=== PATIENT | female | born 1960 | race Caucasian/White ===

== ENCOUNTER → 2017-09-01 10:46 | Outpatient (CLI) | payer OTHER, SELFPAY ==
[2017-08-17 14:00] VITALS: BP 124/71; BMI 46.5
[2017-09-01 10:55] VITALS: PULSE 104; PULSE 113; PULSE 119; PULSE 127; PULSE 129; PULSE 139; PULSE 80; PULSE 83; O2SAT 95; O2SAT 96; O2SAT 97; O2SAT 98
--- NOTE | 2017-09-02 15:05 | PCM.PSN.6M ---
PSN 6 Minute Walk Test - 6 Minute Walk Test 6 Minute Walk Test: 6 Minute Walk Test PSN:6-Minute Walk Test Start: 09/01/17 11:17 Freq: Status: Active Protocol: RESP.6MINW Document 09/01/17 10:55 [facility] (Rec: 09/01/17 11:21 [facility] [id number]) 6 Minute Walk Test Date Performed 09/01/17 Time Performed 10:55 Height 5 ft 6 in Weight: 131.15 kg Weight in Pounds 289.[address]: Macario Gerardo FIO2 (% Oxygen) 21 Assistive device used: None Pre-test Oxygen Delivery Method Room Air Pulse Ox (%) 97 Pulse Rate (60-100 beats/min) 80 Dyspnea Latasha Scale (0-10) 0 Exertion Latasha Scale (6-20) 6 1st minute Oxygen Delivery Method Room Air Pulse Ox (%) 96 Pulse Rate (60-100 beats/min) 104 H Number of Rests Taken 0 2nd minute Oxygen Delivery Method Room Air Pulse Ox (%) 97 Pulse Rate (60-100 beats/min) 113 H Number of Rests Taken 0 3rd minute Oxygen Delivery Method Room Air Pulse Ox (%) 98 Pulse Rate (60-100 beats/min) 127 H Number of Rests Taken 1 Reported Symptoms Increased Work of Breathing 4th minute Oxygen Delivery Method Room Air Pulse Ox (%) 95 Pulse Rate (60-100 beats/min) 139 H Number of Rests Taken 1 Reported Symptoms Increased Work of Breathing 5th minute Oxygen Delivery Method Room Air Pulse Ox (%) 98 Pulse Rate (60-100 beats/min) 129 H Reported Symptoms Increased Work of Breathing 6th minute Oxygen Delivery Method Room Air Pulse Ox (%) 98 Pulse Rate (60-100 beats/min) 119 H Number of Rests Taken 0 Reported Symptoms Increased Work of Breathing Post-test Oxygen Delivery Method Room Air Pulse Ox (%) 98 Pulse Rate (60-100 beats/min) 83 Dyspnea Latasha Scale (0-10) 5 Exertion Latasha Scale (6-20) 16 Number of Rests Taken 0 Full Laps Walked 13 Partial Lap, Number of Tiles Walked 39 Total Distance Walked (ft) 806 - Interpretation Interpretation: The patient ambulated only 806 feet over the course of 6 minutes on room air with no assistive devices. The patient did take 2 breaks over the course of 6 minutes. Saturations were maintained, but patient did have significant tachycardia with a peak heart rate of 139 bpm. These findings are consistent with a cardiovascular limitation exercise tolerance. - Recommendations Recommendations: No supplemental oxygen is indicated at this time. However, cardiology evaluation may be warranted.
== END ==
PROVIDERS: Family Provider Physician Assistant; PCP Physician Assistant; Visit Provider Internal Medicine Critical Care Medicine
DX: R06.09 Other forms of dyspnea (principal)
CPT/HCPCS: 94618

== ENCOUNTER → 2017-09-22 11:18 | Outpatient (CLI) | payer OTHER, SELFPAY ==
[2017-09-22 13:14] LABS: Rheumatoid Factor < 10.0 IU/mL (<15)
[2017-09-24 09:34] LABS: ANTINUCLEAR ANTIBODIES DIRECT Negative (Negative)
[2017-09-24 16:10] LABS: Cytoplasmic Ab (C-ANCA) <1:20 titer (Neg:<1:20)
[2017-09-25 08:56] LABS: CCP IgG Antibodies 36 units (0-19); Perinuclear Ab (P-ANCA) <1:20 titer (Neg:<1:20)
== END ==
PROVIDERS: Family Provider Physician Assistant; PCP Physician Assistant; Visit Provider Nurse Practitioner Acute Care
DX: R06.09 Other forms of dyspnea (principal)
CPT/HCPCS: 36415; 86038; 86200; 86256; 86431

== ENCOUNTER → 2017-11-25 09:42 | Outpatient (CLI) | payer OTHER, SELFPAY ==
--- NOTE | 2017-11-25 09:47 | RAD_ITS ---
XR Pelvis 1 or 2 Views INDICATION: inflammatory polyarthropathy COMPARISON: None TECHNIQUE: Frontal view of the pelvis FINDINGS: The pelvis is intact and there is normal alignment at the SI joints and symphysis pubis. There is normal alignment at the hips and the joint spaces at the hips are preserved. RAD/Pelvis 1 or 2 Views IMPRESSION: Negative plain film examination of the pelvis. at 1807 Reported and signed by: Ethel Arias MD Electronically Signed: Ethel Arias MD at 18:06 EDT Tel , Service support ,
[2017-11-25 12:25] LABS: Absolute Lymphocyte Count 1.75 X10^3/ul (0.83-4.51); Absolute Neutrophil Count 3.7 X10^3/uL (2.0-7.7); Basophil# 0.06 X10^3/uL; Eosinophil# 0.17 X10^3/uL; Eosinophils% 2.8 % (0-5); Erythrocyte Sedimentation Rate 21 mm/hr (0-30); Hematocrit 35.2 % (37-47); Hemoglobin 11.1 g/dl (12.0-15.0); Lymphocyte # 1.75 X10^3/ul (4.0); Lymphocyte % 28.9 % (19-41); Mean Corp Hgb Conc 31.5 g/gl (32-36); Mean Corpuscular Hgb 29.9 pg (27.0-32.0); Mean Corpuscular Volume 94.9 fL (81-99); Mean Platelet Vol. 9.6 fl (6.2-12.0); Monocyte# 0.31 X10^3/uL; Monocyte% 5.1 % (0-10); Neutrophil # 3.74 X10^3/uL (2.7-7.7); Neutrophil % 61.9 % (47-70); Platelet Count 193 K/mm3 (150-450); RBC Distribution Width SD 55.3 fl (35.1-43.9); Red Blood Count 3.71 M/mm3 (4.2-5.4); White Blood Count 6.1 K/mm3 (4.4-11.0)
[2017-11-25 12:32] LABS: POSITIVE COUNT NO; POSITIVE DIFFERENTIAL NO; POSITIVE MORPHOLOGY NO
[2017-11-25 12:45] LABS: ALB/GLOB Ratio 1.1 RATIO (0.9-2.4); AST(SGOT) 40 U/L (15-37); Alanine Aminotransfer ALT/SGPT 44 U/L (13-56); Albumin, Serum 3.8 g/dL (3.2-5.0); Alkaline Phosphatase 96 U/L (45-117); Anion Gap 11 (5-15); BUN 13 mg/dL (7-18); BUN/Creat Ratio 13.9 RATIO (10-20); Chloride 103 mmol/L (98-107); Creatinine, Serum 0.94 mg/dL (0.55-1.02); EST Glomerular Filtration Rate 66 mL/min (>60); Est Glom Filt Rate - Afr Amer 80 mL/min (>60); Globulin 3.4 g/dL (2.2-4.2); Glucose 224 mg/dL (74-106); Potassium 3.7 mmol/L (3.5-5.1); Protein, Total 7.2 g/dL (6.4-8.2); Rheumatoid Factor < 10.0 IU/mL (<15); Sodium Level 139 mmol/L (136-145)
[2017-12-01 11:14] LABS: CCP IgG Antibodies 31 units (0-19); HEPATITIS B SURFACE AG Negative (Negative); HLA B27 Negative (.); Hep B Surface Antibodies Non Reactive (.); Hep C Antibodies <0.1 s/co ratio (0.0-0.9)
== END ==
PROVIDERS: Family Provider Physician Assistant; PCP Physician Assistant; Visit Provider Internal Medicine Rheumatology
DX: M06.4 Inflammatory polyarthropathy (principal); K21.9 Gastro-esophageal reflux disease without esophagitis; M21.40 Flat foot [pes planus] (acquired), unspecified foot; K76.0 Fatty (change of) liver, not elsewhere classified; E11.40 Type 2 diabetes mellitus with diabetic neuropathy, unspecified; E05.90 Thyrotoxicosis, unspecified without thyrotoxic crisis or storm; N18.9 Chronic kidney disease, unspecified; I12.9 Hypertensive chronic kidney disease with stage 1 through stage 4 chronic kidney disease, or unspecified chronic kidney disease
CPT/HCPCS: 36415; 72170; 80053; 81374; 85025; 85652; 86140; 86200; 86431; 86706; 86803; 87340

== ENCOUNTER → 2018-03-16 15:58 | Outpatient (CLI) | payer OTHER, SELFPAY ==
--- NOTE | 2018-03-16 16:02 | RAD_ITS ---
STUDY: X-RAY CHEST REASON FOR EXAM: Female, 57 years old. Rheumatoid arthritis. Long-term drug therapy TECHNIQUE: PA and lateral views of the chest. COMPARISON: None. FINDINGS: The lungs are clear and expanded. There is no demonstrated pleural abnormality. Normal size heart. Normal mediastinum and augusto. Normal visualized pulmonary arteries. Normal visualized aortic arch and descending thoracic aorta. Normal visualized thoracic spine. Normal visualized ribs, clavicles, and shoulders. There is no demonstrated abnormality of the visualized soft tissue structures of the upper abdomen. RAD/Chest PA and Lateral IMPRESSION: Normal x-ray examination of the chest. Electronically Signed: Az Harrell DO at 12:11 EDT Tel , Service support ,
[2018-03-26 03:07] LABS: QNTFERON TB Ag Minus Nil Value < 0 IU/mL (.); QNTFERON TB Ag Value 0.07 IU/mL (.); QNTFERON TB Mitogen Value > 10.00 IU/mL (.); QNTFERON TB Nil Value 0.12 IU/mL (.)
[2018-03-26 11:35] LABS: QNTIFERON TB Gold Negative (Negative)
== END ==
PROVIDERS: Family Provider Physician Assistant; PCP Physician Assistant; Visit Provider Internal Medicine Rheumatology
DX: M06.09 Rheumatoid arthritis without rheumatoid factor, multiple sites (principal); Z79.899 Other long term (current) drug therapy; K21.9 Gastro-esophageal reflux disease without esophagitis; M21.40 Flat foot [pes planus] (acquired), unspecified foot; K76.0 Fatty (change of) liver, not elsewhere classified; I10 Essential (primary) hypertension; E11.40 Type 2 diabetes mellitus with diabetic neuropathy, unspecified; E05.20 Thyrotoxicosis with toxic multinodular goiter without thyrotoxic crisis or storm; E11.21 Type 2 diabetes mellitus with diabetic nephropathy; I27.29 Other secondary pulmonary hypertension; E78.5 Hyperlipidemia, unspecified; G47.33 Obstructive sleep apnea (adult) (pediatric); Z85.42 Personal history of malignant neoplasm of other parts of uterus
CPT/HCPCS: 36415; 71046; 86480

== ENCOUNTER → 2018-04-28 10:40 | Outpatient (CLI) | payer OTHER, SELFPAY ==
[2018-04-28 11:28] LABS: Anion Gap 10 (5-15); BUN 15 mg/dL (7-18); BUN/Creat Ratio 15.9 RATIO (10-20); Chloride 102 mmol/L (98-107); Creatinine, Serum 0.94 mg/dL (0.55-1.02); EST Glomerular Filtration Rate 65 mL/min (>60); Est Glom Filt Rate - Afr Amer 79 mL/min (>60); Glucose 171 mg/dL (74-106); Potassium 3.9 mmol/L (3.5-5.1); Sodium Level 140 mmol/L (136-145)
[2018-04-28 11:56] LABS: BNP,B-Type NATRIURETIC PEPTIDE 14.3 pg/mL (0-100)
== END ==
PROVIDERS: Family Provider Physician Assistant; PCP Physician Assistant; Referring Provider Nurse Practitioner Acute Care; Visit Provider Nurse Practitioner Acute Care
DX: R06.09 Other forms of dyspnea (principal)
CPT/HCPCS: 36415; 80048; 83880

== ENCOUNTER → 2018-05-13 12:15 | Outpatient (CLI) | payer OTHER, SELFPAY ==
[2018-05-13 12:50] VITALS: PULSE 110; PULSE 113; PULSE 114; PULSE 117; PULSE 120; PULSE 78; PULSE 79; PULSE 97; O2SAT 92; O2SAT 93; O2SAT 95; O2SAT 97; O2SAT 98
--- NOTE | 2018-05-13 12:54 | CPS ---
PATIENT ARRIVED AT BASELINE BREATHING STATUS. SHE TOOK 4 REST BREAKS TOTAL DURING 6 MINUTE TEST, EACH TAKEN DUE TO INCREASED WORK OF BREATHING WELL LOW BACK/HIP PAIN AND FATIGUE.
--- NOTE | 2018-05-13 16:03 | PCM.PSN.6M ---
PSN 6 Minute Walk Test - 6 Minute Walk Test 6 Minute Walk Test: 6 Minute Walk Test PSN:6-Minute Walk Test Start: 05/13/18 12:50 Freq: Status: Active Protocol: RESP.6MINW Document 05/13/18 12:50 [facility] (Rec: 05/13/18 12:56 [facility] [id number]) 6 Minute Walk Test Date Performed 05/13/18 Time Performed 12:30 Height 5 ft 6 in Weight: 138.346 kg Weight in Pounds 305.[address]: Elsie East FIO2 (% Oxygen) 21 Assistive device used: None Pre-test Oxygen Delivery Method Room Air Pulse Ox (%) 97 Pulse Rate (60-100 beats/min) 78 Dyspnea Latasha Scale (0-10) 1 1st minute Oxygen Delivery Method Room Air Pulse Ox (%) 95 Pulse Rate (60-100 beats/min) 97 Dyspnea Latasha Scale (0-10) 2 Number of Rests Taken 0 Reported Symptoms Increased Work of Breathing 2nd minute Oxygen Delivery Method Room Air Pulse Ox (%) 93 Pulse Rate (60-100 beats/min) 110 H Dyspnea Latasha Scale (0-10) 4 Number of Rests Taken 1 Reported Symptoms Increased Work of Breathing 3rd minute Oxygen Delivery Method Room Air Pulse Ox (%) 93 Pulse Rate (60-100 beats/min) 120 H Dyspnea Latasha Scale (0-10) 5 Number of Rests Taken 2 Reported Symptoms Increased Work of Breathing 4th minute Oxygen Delivery Method Room Air Pulse Ox (%) 93 Pulse Rate (60-100 beats/min) 113 H Dyspnea Latasha Scale (0-10) 4 Number of Rests Taken 0 5th minute Oxygen Delivery Method Room Air Pulse Ox (%) 92 Pulse Rate (60-100 beats/min) 117 H Dyspnea Latasha Scale (0-10) 5 Number of Rests Taken 1 Reported Symptoms Increased Work of Breathing 6th minute Oxygen Delivery Method Room Air Pulse Ox (%) 93 Pulse Rate (60-100 beats/min) 114 H Dyspnea Latasha Scale (0-10) 6 Number of Rests Taken 0 Reported Symptoms Increased Work of Breathing Post-test Oxygen Delivery Method Room Air Pulse Ox (%) 98 Pulse Rate (60-100 beats/min) 79 Dyspnea Latasha Scale (0-10) 2 Full Laps Walked 11 Partial Lap, Number of Tiles Walked 14 Total Distance Walked (ft) 663 05/13/18 12:54 Cardiopulmonary Services by Frannie Pepper PATIENT ARRIVED AT BASELINE BREATHING STATUS. SHE TOOK 4 REST BREAKS TOTAL DURING 6 MINUTE TEST, EACH TAKEN DUE TO INCREASED WORK OF BREATHING WELL LOW BACK/HIP PAIN AND FATIGUE. Initialized on 05/13/18 12:54 - END OF NOTE - Interpretation Interpretation: The patient was able to ambulate only 663 feet over the course of 6 minutes on room air with no assistive devices, but did require for breaks secondary to dyspnea and leg pain. Patient did have significant desaturation from a baseline of 97%, to as low as 92% with ambulation. Patient was also noted to have significant tachycardia at 120 bpm. These findings are consistent with a respiratory limitation exercise tolerance. - Recommendations Recommendations: No supplemental oxygen is indicated at this time, but patient will need to be followed closely given level of desaturation.
== END ==
PROVIDERS: Family Provider Physician Assistant; PCP Physician Assistant; Referring Provider Nurse Practitioner Acute Care; Visit Provider Nurse Practitioner Acute Care
DX: R06.09 Other forms of dyspnea (principal)
CPT/HCPCS: 94618

== ENCOUNTER → 2018-05-25 13:17 | Outpatient (CLI) | payer OTHER, SELFPAY ==
--- NOTE | 2018-05-25 15:04 | PFTCOMP_ITS ---
COMPLETE PULMONARY FUNCTION TEST INTERPRETATION Brief HPI: Patient is a 57 year old female, currently under the care of Elsie East, who presents to [facility] for complete pulmonary function tests secondary to diagnosis of dyspnea on exertion. Respiratory therapist reports good effort and reproducible results. Interpretation: Forced expiration spirometry shows no large airways obstructive ventilatory defect with an FEV1 of 80% predicted. There is no significant bronchodilator response by strict ATS criteria. Spirograms are of good quality and plateau normally. The respiratory flow volume loop shows a normal pattern. Lung volumes by body plethysmography show a normal total lung capacity at 5.38 L, 101% predicted. All other lung volumes are within normal limits. Diffusion capacity by carbon monoxide is decreased at 51% predicted. The airway resistance is normal. Compared to previous pulmonary function tests from May 28, 2017, there has been no significant change. Impression: Isolated reduction in diffusion capacity consistent with a pulmonary vascular disorder. There is been no significant change compared to previous.
== END ==
PROVIDERS: Family Provider Physician Assistant; PCP Physician Assistant; Referring Provider Nurse Practitioner Acute Care; Visit Provider Nurse Practitioner Acute Care
DX: R06.09 Other forms of dyspnea (principal)
CPT/HCPCS: 94060; 94726; 94729

== ENCOUNTER 2023-10-22 17:03 | Inpatient (IN) | payer OTHER, SELFPAY ==
[2023-10-22 17:41] LABS: Bedside Glucose 84 mg/dL (74-106)
[2023-10-22 18:46] VITALS: BP 108/53; PULSE 68; RESP 18; TEMP 36.4; O2SAT 97; BMI 56.6
[2023-10-22 22:00] VITALS: BP 102/58; PULSE 74; RESP 16; TEMP 36.5; O2SAT 95
[2023-10-22 22:09] LABS: Bedside Glucose 101 mg/dL (74-106)
[2023-10-22] MEDS: Atorvastatin Calcium 10 MG Tablet PO (23:22)
[2023-10-22] MEDS: Senna/Docusate Sodium 1 Tablet 2 TABLET PO (23:22)
[2023-10-22] MEDS: DULoxetine Hcl 30 MG Capsule PO (23:22)
[2023-10-22] MEDS: Pregabalin 75 MG Capsule 150 MG PO (23:25)
[2023-10-23 03:39] LABS: Bedside Glucose 92 mg/dL (74-106)
[2023-10-23 05:49] LABS: Hemoglobin 11.5 g/dL (12.0-15.0); Mean Corp Hgb Conc 32.9 g/dL (32-36); Mean Corpuscular Hgb 31.9 pg (27.0-32.0); Mean Corpuscular Volume 97.2 fL (81-99); Mean Platelet Vol. 9.9 fl (6.2-12.0); Platelet Count 155 K/mm3 (150-450); RBC Distribution Width CV 13.6 % (11.6-14.6); RBC Distribution Width SD 48.9 fl (35.1-43.9); White Blood Count 7.9 K/mm3 (4.4-11.0)
[2023-10-23 06:00] VITALS: BMI 56.6
[2023-10-23 06:42] LABS: Bedside Glucose 133 mg/dL (74-106)
[2023-10-23 07:05] LABS: AST(SGOT) 51 U/L (15-37); Alanine Aminotransfer ALT/SGPT 37 U/L (13-56); Albumin, Serum 3.2 g/dL (3.2-5.0); Alkaline Phosphatase 85 U/L (45-117); Anion Gap 5 (5-15); BUN 21 mg/dL (7-18); BUN/Creat Ratio 16.8 RATIO (10-20); Calcium,Total 8.7 mg/dL (8.5-10.1); Chloride 103 mmol/L (98-107); Creatinine, Serum 1.25 mg/dL (0.55-1.02); EST Glomerular Filtration Rate 46 mL/min (>60); Est Glom Filt Rate - Afr Amer 56 mL/min (>60); Estimated Creatinine Clearance 73.28 ml/min; Globulin 3.3 g/dL (2.2-4.2); Glucose 153 mg/dL (74-106); Magnesium 1.7 mg/dL (1.6-2.6); Phosphorus 4.8 mg/dL (2.5-4.9); Protein, Total 6.5 g/dL (6.4-8.2); Sodium Level 139 mmol/L (136-145)
[2023-10-23 07:58] VITALS: PULSE 72
[2023-10-23] MEDS: Metoprolol(XL)Succ 100 MG Tablet PO (07:58)
[2023-10-23] MEDS: Loratadine 10 MG Tablet PO (07:58)
[2023-10-23] MEDS: Senna/Docusate Sodium 1 Tablet 2 TABLET PO ×2 (07:58→21:47)
[2023-10-23] MEDS: hydroCHLOROthiazide 25 MG Tablet PO (07:59)
[2023-10-23] MEDS: Losartan Potassium 100 MG Tablet PO (07:59)
[2023-10-23] MEDS: Calcium (Elemental) 500 MG Tablet PO (07:59)
[2023-10-23] MEDS: Ferrous Sulfate 325 MG Tablet PO (07:59)
[2023-10-23] MEDS: Pantoprazole Sodium 40 MG Tablet PO (07:59)
[2023-10-23] MEDS: Cyanocobalamin 500 MCG Tablet 1000 MCG PO (08:00)
[2023-10-23] MEDS: Aspirin E.C. 81 MG Tablet PO (08:00)
[2023-10-23] MEDS: Multivitamins,Therapeutic Tablet 1 TABLET PO (08:00)
[2023-10-23] MEDS: Ascorbic Acid 500 MG Tablet 1000 MG PO (08:00)
[2023-10-23] MEDS: Levothyroxine 137 MCG Tablet PO (08:00)
[2023-10-23] MEDS: Insulin U-500 UNITS/ML PEN 150 UNITS SC (08:03)
[2023-10-23] MEDS: oxyCODONE 5 MG Tablet PO ×2 (08:07→21:48)
[2023-10-23 08:20] VITALS: BP 134/59; PULSE 72; RESP 16; TEMP 37.1; O2SAT 93
[2023-10-23 08:29] VITALS: BP 134/59; PULSE 72; RESP 16; TEMP 37.1; O2SAT 93
[2023-10-23 11:15] LABS: Bedside Glucose 236 mg/dL (74-106)
[2023-10-23] MEDS: Insulin Lispro 100 UNIT/ML INSULN.PEN SC ×2 (11:55→21:54)
[2023-10-23] MEDS: Insulin U-500 UNITS/ML PEN 45 UNITS SC (11:56)
--- NOTE | 2023-10-23 12:49 | HP.PCM_ITS ---
[facility] - General General Date of Admission: 10/22/23 Date of Service: 10/23/23 Chief Complaint: Debility due to R BKA HPI Narrative KACY KEEN, is a 63 YO F with a PMH of poorly controlled DM II on U-500 insulin, HTN, diabetic peripheral polyneuropathy in her hands and feet, obstructive sleep apnea, Charcot ankle on the right, history of endometrial cancer (status post MACO/BSO), rheumatoid arthritis, carpal tunnel syndrome, morbid obesity, dyslipidemia, obstructive sleep apnea (last sleep study was 10- 15 years ago and she has gained about 100 lbs in that period) and chronic pain syndrome who had an elective BKA of the RLE on 10/19/2023 at [facility] by . Surgery went well and she had no unex pected complications. she was transferred to the acute inpt rehab unit at [facility] on 10/22/23 for 3 hours of therapy daily to restore function/independence at or near her level prior to the BKA. She is NWB on the RLE. Had been getting around with a knee walker for the past year. The R Charcot ankle occurred following a R ankle fracture....no fall, was just walking She was seen by Elsie Sellers NP from the pulmonary department at [facility] on 06/03/2018. She was instructed to follow-up with Dr. Gerardo in 3 months but this never happened. She had complete pulmonary function tests on 05/25/2018 and the FVC was 76% of predicted, the FEV1 was 80% of predicted and the FEV1/F VC ratio was 82%. Total lung capacity was 101% of predicted and DLCO was 51% of predicted. The test was considered to be consistent with isolated reduction in diffusing capacity. She underwent a pulmonary stress test on 05/13/2018 and it did not show a drop in saturation below 89%. She was 100% compliant with AutoPap 5-20 cm of water. Her weight at that visit was 302 pounds and since that time she has gained 50 pounds. The current weight is 352 pounds and 3 ounces. BMI is now 56.6, up from 48.7 in 2018. She has inquired about bariatric surgery but, her insurance will not cover. She is on Ozempic which helps to control the BS but, she continues to gain weight. Admits to be non-complaint with diet. Takes 90 mg of duloxetine for depression and chronic back pain. she is on Lyrica 150 mg TID for pain due to peripheral neuropathy. she does not want to take Ozempic because of severe constipation, dry mouth and reflux. She has been taking this medication for about 1 year and her ring facer wants her to continue it. She has not tried any other weight loss medications. Denies ever using Buproprion/naltrexone or phentermine/topiramate. She admits to feeling depressed but, has never had any psychotherapy. All lab drawn this AM was personally reviewed. The white blood cell count is 7.9. Hemoglobin is mildly decreased at 11.5 with a normal MCV and MCH but with a mildly increased RDW. Platelets are within normal limits. Sodium is 139 and the potassium is 4.0. The BUN is 21 with a creatinine of 1.25. Creatinine in April 2018 was 0.94. GFR is 46 which is consistent with stage III chronic renal failure. Magnesium is borderline low at 1.7. LFTs are unremarkable. Phosphorus and calcium are normal. [facility] Medical History (Updated 10/23/23 @ 18:[address] Cristina Simon, ) Adenocarcinoma of endometrium Anemia Benign essential HTN Bilateral carpal tunnel syndrome Charcot ankle Chronic pain Chronic renal failure (CRF), stage 3a CPAP (continuous positive airway pressure) dependence Diabetes mellitus, type 2 Diverticulosis External hemorrhoid Fatty liver GERD without esophagitis Hx of supraventricular tachycardia Hyperlipidemia Low vitamin B12 level Morbid obesity with BMI of 50.0-59.9, adult Multinodular goiter Nephrolithiasis BRITT (obstructive sleep apnea) Pulmonary hypertension Rheumatoid arthritis Rosacea Thyromegaly Tubular adenoma Home Medications aspirin 81 mg tablet,delayed release 81 mg PO DAILY Heart health 01/11/16 [H istory Last Taken 07/03/17] cetirizine 10 mg capsule 10 mg PO DAILY Allergies 01/11/16 [History Last Taken Unknown] losartan 100 mg-hydrochlorothiazide 25 mg tablet 1 tab PO DAILY BP 01/11/16 [History Last Taken 07/03/17] metoprolol succinate 100 mg tablet,extended release 24 hr 100 mg PO DAILY BP 0 01/11/16 [History Last Taken 07/03/17] multivitamin 1 ea PO DAILY Supplement 01/11/16 [History Last Taken Unknown] omeprazole 40 mg capsule,delayed release 40 mg PO DAILY GERD 01/11/16 [History Last Taken 07/03/17] simvastatin 20 mg tablet 20 mg PO QHS Cholestrol 01/11/16 [History Last Taken Unknown] cyanocobalamin (vitamin B-12) 1,000 mcg sublingual tablet 1,000 mcg PO DAILY Supplement 07/02/17 [History Last Taken Unknown] etanercept 50 mg/mL (1 mL) subcutaneous syringe (Enbrel) 50 mg subcut QWEEK Ask dr 04/28/18 [History Last Taken Unknown] hydroxychloroquine 200 mg tablet (Plaquenil) 200 mg PO BID Platelets 04/28/18 [History Last Taken Unknown] duloxetine 60 mg capsule,delayed release 30 mg PO QHS Nerve pain 06/14/18 [History Last Taken Unknown] pregabalin 150 mg capsule (Lyrica) 150 mg PO QHS Nerve pain 06/14/18 [History Last Taken Unknown] insulin regular hum U-500 conc 500 unit/mL(3 mL) subcut pen 150 unit subcut DAILY Blood sugar 30 days #30 mL 06/28/18 [History Last Taken Unknown] ferrous sulfate 325 mg (65 mg iron) tablet (Feosol) 325 mg PO DAILY supplement 04/25/20 [History Last Taken Unknown] levothyroxine 175 mcg capsule 137 mcg PO DAILY Thyroid 04/25/20 [History Last Ta kassandra Unknown] Allergy/AdvReac Type Severity Reaction Status Date / Time No Known Allergies Allergy Verified 04/25/20 13:35 Family History Mother Ovarian cancer Hypertension Arthritis Uterine cancer Fibrocystic disease of breast Hypothyroid Father , Age 86-CHF Hypertension Arthritis Diverticulitis of colon Depression CAD (coronary artery disease) Sister Hypertension Depression CVA (cerebral vascular accident) Fibrocystic disease of breast Diabetes Bleeding disorder Portal hypertension Surgical History (Updated 10/23/23 @ 18:[address] Cristina Simon DO) H/O abdominal hysterectomy H/O cardiac radiofrequency ablation (02/15/13) H/O carpal tunnel repair H/O colonoscopy History of hand surgery History of right and left heart catheterization (07/03/17) History of right below knee amputation History of tonsillectomy Hx of cholecystectomy Previous section Surgical menopause Social History Smoking Status: Never smoker second hand exposure: No alcohol intake: never substance use type: does not use caffeine: No ROS Review of Systems ROS Unobtainable: Denies due to encephalopathy, due to endotracheal tube, due to mental condition or due to mental status Constitutional Constitutional: Reports change in weight and weight gain; Denies anorexia, chills, fatigue, fever(s), night sweats, weakness or weight loss Eyes Eyes: Denies blurry vision, change in vision, eye pain or loss of vision ENT HEENT: Denies abnormal hearing, dysphagia, headache(s), hearing loss, nasal congestion or sore throat Cardiovascular Cardiovascular: Reports dyspnea on exertion and edema; Denies chest pain, lightheadedness, orthopnea, palpitations, paroxysmal nocturnal dyspnea or syncope Respiratory/Chest Respiratory/Chest: Reports dyspnea on exertion and shortness of breath with exertion; Denies cough, dyspnea, shortness of breath at rest or wheezing Gastrointestinal Gastrointestinal: Reports bloating, constipation, dyspepsia and heartburn; Denies abdominal pain, diarrhea, hematemesis, hematochezia, nausea or vomiting Genitourinary Genitourinary: Denies dysuria, hematuria, nocturia, urinary frequency, urinary hesitancy, urinary incontinence or urinary urgency Musculoskeletal Musculoskeletal: Reports back pain, joint pain and joint stiffness; Denies neck pain Integumentary Integumentary: Reports other Details: wound due to R BKA ; Denies jaundice or rash Neurologic Neurologic: Reports paresthesias, sensory deficit and other Details: severe painful neuropathy in the hands and feet. ; Denies confusion, disequilibrium, dizziness, focal weakness, headache(s), seiz ures or tremor(s) Psychiatric Psychiatric: Reports depression; Denies anxiety, behavioral changes, hallucinations, homicidal ideation, panic attacks or suicidal ideation Endocrine Endocrinology: Denies change in body appearance, polydipsia or polyuria Hematologic/Lymphatic Hematologic/Lymphatic: Denies easy bleeding, easy bruising or lymphadenopathy Allergic/Immunologic Allergic/Immunologic: Denies rhinitis, eczemia or asthma Vital Signs Vital Signs Vital Signs: 10/22/23 18:46 10/22/23 22:00 10/22/23 22:00 Temperature 97.6 F L 97.7 F L Temperature Source Temporal Oral Pulse Rate 68 74 Respiratory Rate 18 16 Respiratory Effort Normal Non-Labored Respiratory Depth Normal Respiratory Pattern Normal Blood Pressure 108/53 L 102/58 L Blood Pressure Mean 71 72 Blood Pressure Source Monitor Monitor Blood Pressure Position Semi-Fowlers Semi-Fowlers Blood Pressure Location Left Arm Left Arm Pulse Ox 97 95 Oxygen Delivery Method Room Air Room Air CPAP 10/23/23 07:58 10/23/23 08:20 10/23/23 08:29 Temperature 98.8 F 98.8 F Temperature Source Temporal Temporal Pulse Rate 72 72 72 Respiratory Rate 16 16 Respiratory Effort Respiratory Depth Respiratory Pattern Blood Pressure 134/59 H 134/59 H Blood Pressure Mean 84 84 Blood Pressure Source Monitor Blood Pressure Position Semi-Fowlers Blood Pressure Location Left Arm Pulse Ox 93 93 Oxygen Delivery Method Room Air Room Air Weight Weight: 352 lb 3 oz Body Mass Index (BMI) 56.6 Physical Exam Const alert, oriented x3 and no apparent distress Constitutional Narrative: Making good eye contact, appropriate General Appearance: cooperative, comfortable and well kempt Nutritional Appearance: morbidly obese HEENT moist oral mucous membranes Eyes PERRL, EOMs intact bilaterally, conjunctivae normal and no scleral icterus Neck no lymphadenopathy, supple, no JVD and no carotid bruits Neck Narrative: short thick neck Chest Chest: symmetrical chest wall rise Resp normal respiratory effort, no use of accessory muscles and clear to auscultation bilaterally Resp Narrative: Not tachypneic and no conversational dyspnea. Dimished BS throughout......november b e related to body habitus Cardio regular rate, regular rhythm, S1 normal heart sound, S2 normal heart sound, no murmurs, no rub and no gallops GI normal to inspection, nondistended, normoactive bowel sounds, soft to palpation and non-tender GI Narrative: No guarding with palpation. Morbidly obese, Extremity Extremity Narrative: ankle edema, SAMANTHA hose in place. S/P R BKA. The incision is intact with no dehiscence, no sherif-incisional erythema, no DC and no pain with palpation in the area around the incision. States pain is well controlled. Skin no jaundice Skin Narrative: No rashes, no skin breakdown. See extremity exam fo description of the R BKA incision. Neuro oriented x3, CN's II-XII intact bilaterally and no focal motor deficits Neuro Narrative: Decreased sensation in the hands and distal LLE. Psych affect normal Psych Narrative: Appropriate, making good eye contact. Able to stay on topic and focus. No flight of ideas. Does not appear anxious or depressed. Conversant and relating well to staff. Appearance: grossly normal Attitude: calm and engaged Thought Content: normal thought content Attention / Concentration: attention grossly intact Memory / Cognition: memory grossly intact Results Lab / Micro Data 10/23/23 05:38 10/23/23 05:38 Labs: Laboratory Results - last 24 hr 10/22/23 17:21: POC Glucose 84 10/22/23 21:27: POC Glucose 101 10/23/23 03:21: POC Glucose 92 10/23/23 05:38: WBC 7.9, RBC 3.60 L, Hgb 11.5 L, Hct 35.0 L, MCV 97.2, MCH 31.9, MCHC 32.9, RDW Std Deviation 48.9 H, RDW Coeff of Roland 13.6, Plt Count 155, MPV 9.9, Sodium 139, Potassium 4.0, Chloride 103, Carbon Dioxide 31.0, Anion Gap 5, BUN 21 H, Creatinine 1.25 H, Estim Creat Clear Calc 73.28, Est GFR (MDRD) Af Amer 56 L, Est GFR (MDRD) Non-Af 46 L, BUN/Creatinine Ratio 16.8, Glucose 153 H, Calcium 8.7, Phosphorus 4.8, Magnesium 1.7, Total Bilirubin 0.70, AST 51 H, ALT 37, Alkaline Phosphatase 85, Total Protein 6.5, Albumin 3.2, Globulin 3.3, Albumin/Globulin Ratio 1.0 10/23/23 06:19: POC Glucose 133 H 10/23/23 10:55: POC Glucose 236 H Assessment & Plan Assessment/Plan (1) Physical debility: (2) History of right below knee amputation: PLAN: Elective BKA for right Charcot ankle. 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 operator use Diabetes mellitus complication status: with kidney complications Chronic kidney disease stage: stage 3 (moderate) Chronic kidney disease stage 3 subtype: stage 3a (GFR 45-59) (8) Morbid obesity with BMI of 50.0-59.9, adult: (9) Chronic renal failure (CRF), stage 3a: (10) Pulmonary hypertension: (11) BRITT (obstructive sleep apnea): (12) GERD without esophagitis: (13) Benign essential HTN: (14) Hyperlipidemia: QUALIFIERS: Hyperlipidemia type: pure hypercholesterolemia Qualified Code(s): E78.00 - Pure hypercholesterolemia, unspecified; E78.0 - Pure hypercholesterolemia (15) Fatty liver: PLAN: Plan PLAN PT for gait stability OT for ADL's ST for evaluation Analgesics as needed Bowel protocol Fall precautions Assess for Anxiety/Depression GI prophylaxis -pantoprazole 40 mg daily DVT prophylaxis with enoxaparin 40 mg subcu daily Follow up with PCP, Dr. Morales, endocrinology following DC from Rehab... Also recommend follow up with pulmonary medicine. she has gained 50 lbs since her last sleep study and may need retitration study........does not feel rested in the morning and can fall asleep if doing something boring during the day. Has seen Elsie Sellers in the past. . AM lab including CMP, CBC, Mag and Phos-personally reviewed Change the diet to 1600-calorie, carb consistent, low-fat, low-salt Change the Lyrica to 100 mg 3 times daily Decrease Cymbalta to 60 mg daily Counselled her on weight loss, weight loss medications and bariatric surgery. This patient is only 63 YO old. Has continued to gain weight despite Ozempic. She has now had a BKA and with hx of severe peripheral neuropathy and a BMI of 57 she is at severe risk for having the other leg amputated within the next 5 years. She is unable to exercise and she is not able to control her diet. Fortunately she has normal coronaries. Recommended to her that she seriously consider bariatric surgery and discuss with her insurance company again. If they continue to deny her then I would be willing to write a letter to her insurance company pleading her case. She was place on Cymbalta for pain in her feet.....long before starting Lyrica. She has not lost weight with Cymbalta. Would consider using bupropion/naltrexone for weight loss. Plan on weaning Cymbalta slowly and starting bupropion/naltrexone. Could also consider phentermine/topiramate as a weight loss aid. I strongly recommend psychotherapy to work on addictive behavior food/sugar. Charges/Coding Visit Charges Inpatient E&M: 65138 Init Hosp L2
--- NOTE | 2023-10-23 15:18 | CASEMGMT ---
Social Work SW met with patient at bedside to complete initial intake assessment. Patient is A&Ox4. Patient complete BIM () and PHQ-9 (05/22). Patient expressed significant loneliness and difficulty managing psychology while dealing with health concerns. Patient denies any diagnosis of depression or anxiety. Patient informed SW that she would like to manage her weight and increase physical ability to care for self, but blames self for decline in health. Patient is diabetic and expressed concerns managing diabetic condition. SW discussed coping skills and social supports. Patient was encouraged to reframe concerns regarding increased care. SW discussed home health care support with patient. Patient has significant social support from her spouse and friends. Patient is concerned with being a burden. SW discussed increased discussion regarding care needs with family/ friends. Patient informed SW that she is agreeable to continue discussions for support. MANJEET Kang
[2023-10-23 17:04] LABS: Bedside Glucose 111 mg/dL (74-106)
--- NOTE | 2023-10-23 17:09 | NURSING ---
Addendum entered by Emily Berrios 10/23/23 17:15: Received call back. They stated they are looking into finding a bed that goes lower to the ground. Original Note: Lee left [facility] requesting the bed be replaced as it is too high for the patient. Waiting for return call.
[2023-10-23] MEDS: Juven (unflavored) Packet 1 PACKET PO (17:31)
[2023-10-23] MEDS: Insulin U-500 UNITS/ML PEN 55 UNITS SC (17:31)
--- NOTE | 2023-10-23 18:40 | PCM.RU.PYE ---
Admission Information Primary Diagnosis:: Physical debility secondary to right BKA. Status Changes from Prescreening?: No changes Identified Actual Problem List:: Pain, ALteration in Cmfrt, Depression, Bowel, Constipation, Mobility Impaired, Self Care Deficit, Diabetes, Hyperglycemia, BP, Hypertension and Alteration-Leisure Activ. Potential Problem List:: DVT, Bleeding, Infection, UTI, Aspiration, Falls, Skin Integrity and Depression Risk of Complications DVT: LMWH and SAMANTHA Hose Bleeding: Monitor Lab Values, Nursing to Teach Precautions for anti-coagulation therapy., Wound, if applicable, to be assessed every shift. and Stroke patients assessed for lethargy or change in status. Infection: Clinical Staff to Monitor for S/S of infection: and S/S of infection include fever, redness, warmth, etc. Urinary Tract Infection: Monitor for frequency, burning, discomfort, or incontinence. and Nursing will obtain urine sample for urinalysis and C&S when ordered. Aspiration: Clinical staff will monitor for coughing, drooling, congestion., Speech will evaluate swallowing and dsyphasia. and Nursing will monitor patient swallowing during meals. Falls: Patient will be evaluated for Fall Precautions and Patient will be placed on Fall Precautions as indicated per protocol. Skin Breakdown: Nursing will assess skin daily using assessment tool. and Nursing will place on Skin Breakdown Precautions as indicated. Pain: Clinical staff will assess patient's pain level per protocol., Medications will be given, if needed, and the pain level reassessed. and Other methods: Massage, distraction, decrease stimulus, etc. used PRN. Plan of Care Patient requires physician specializing in physical medicine and rehab oversight to provide close medical supervision of rehab issues including: Pain Management, Sleep Problems, Bowel and Bladder, Medical and co-morbidity Management, DVT prophylaxis, Rehabilitation Leadership and Coordination of treatment team Patient needs Physical Therapy: For a minimum of 1 hour and At least 5 out of 7 days Patient needs Physical Therapy to improve:: Mobility, Strengthening, Transfers, Stretching, ROM, Endurance, Stairs, Gait and Balance Patient needs Occupational Therapy: For a minimum of 1 hour and At least 5 out of 7 days Patient needs Occupational Therapy to improve ADL's incl.: Eating, Grooming, Bathing, Dressing, Toileting, Toilet transfers, Community Reintegration, Higher functioning activities, Household tasks, Adaptive Equipment, Splinting and Other activities as determined Patient requires 24/ Rehabilitation Nursing for: Pain Issues, Identifying and preventing risk factors, Monitoring and reporting current medical conditions, Assisting with ambulation, transfer, and all ADL's, Teaching patients about disease process and medications, Family teaching, Providing safe environment, Bowel and Bladder Issues, Skin integrity and Medication Management Patient needs Senior Sales Engineer/ Case Management for: Discharge Planning, Arranging Home Equipment or Services and Family Interventions Patient needs Dietary and Nutrition Services for: Adequate Nutrition, Nutritional Supplements and Nutritional Education Goals Goals Patient will remain: free from falls Patient will perform eating at: MOD I level of assist. Patient will perform bed mobility at: MOD I level of assist. Patient will complete transfers from bed to chair at: Standby Assist. Patient will propel wheelchair: - (250 feet on various surfaces including up/down a ramp to allow access to her home and community.) Patient will complete upper body dressing at: MOD I level of assist. Patient will complete lower body dressing at: MOD I level of assist. (With adaptive equipment as needed) Patient will complete toilet transfer at: MOD I level of assist. Patient will complete toileting at: MOD I level of assist. Patient will perform bathing at: MOD I level of assist. (With adaptive equipment as needed for increased independence with self-care) Patient will perform Tub/Shower transfer at: Standby Assist. Patient will complete grooming at: MOD I level of assist. Patient will complete home management skills at: MOD I level of assist. Patient will have pain level of: of 3 or less Patient's skin will: remain intact Patient will receive: adequate nutrition. Discharge Planning Pt Prognosis for Sig. Practical Improv. w/in Reasonable Time: Good Estimated Length of stay (days): 21 Anticipated D/C Destination: Home with Outpt Therapy Was Preadmission Assessment Accurate?: Yes
[2023-10-23 20:20] VITALS: BP 113/54; PULSE 78; RESP 17; TEMP 36.7; O2SAT 95
[2023-10-23] MEDS: Atorvastatin Calcium 10 MG Tablet PO (21:44)
[2023-10-23] MEDS: Pregabalin 50 MG Capsule 100 MG PO (21:48)
[2023-10-23 22:09] LABS: Bedside Glucose 177 mg/dL (74-106)
[2023-10-23] MEDS: Nystatin Powder 15gm Bottle 1 APPLIC TOPICAL (22:12)
[2023-10-24] MEDS: Levothyroxine 137 MCG Tablet PO (06:37)
[2023-10-24] MEDS: Pregabalin 50 MG Capsule 100 MG PO ×3 (06:37→21:18)
[2023-10-24] MEDS: Enoxaparin 40 MG/0.4 ML Syringe SC (06:37)
[2023-10-24 07:19] LABS: Bedside Glucose 198 mg/dL (74-106)
[2023-10-24] MEDS: Insulin U-500 UNITS/ML PEN 150 UNITS SC (07:52)
[2023-10-24] MEDS: Insulin Lispro 100 UNIT/ML INSULN.PEN SC ×3 (07:52→16:57)
[2023-10-24] MEDS: Cyanocobalamin 500 MCG Tablet 1000 MCG PO (07:53)
[2023-10-24] MEDS: Juven (unflavored) Packet 1 PACKET PO ×2 (07:53→16:01)
[2023-10-24] MEDS: Loratadine 10 MG Tablet PO (07:54)
[2023-10-24] MEDS: Multivitamins,Therapeutic Tablet 1 TABLET PO (07:54)
[2023-10-24] MEDS: Aspirin E.C. 81 MG Tablet PO (07:54)
[2023-10-24] MEDS: DULoxetine Hcl 60 MG Capsule PO (07:54)
[2023-10-24] MEDS: Ascorbic Acid 500 MG Tablet 1000 MG PO (07:56)
[2023-10-24 07:57] VITALS: PULSE 77
[2023-10-24] MEDS: Metoprolol(XL)Succ 100 MG Tablet PO (07:57)
[2023-10-24] MEDS: Senna/Docusate Sodium 1 Tablet 2 TABLET PO ×2 (07:57→21:18)
[2023-10-24] MEDS: Losartan Potassium 100 MG Tablet PO (07:58)
[2023-10-24] MEDS: Pantoprazole Sodium 40 MG Tablet PO (07:58)
[2023-10-24] MEDS: hydroCHLOROthiazide 25 MG Tablet PO (07:59)
[2023-10-24] MEDS: Calcium (Elemental) 500 MG Tablet PO (07:59)
[2023-10-24] MEDS: Ferrous Sulfate 325 MG Tablet PO (08:00)
[2023-10-24] MEDS: Nystatin Powder 15gm Bottle 1 APPLIC TOPICAL ×2 (08:24→21:18)
[2023-10-24 08:25] VITALS: BP 138/72; PULSE 70; RESP 17; TEMP 36.6; O2SAT 97
[2023-10-24] MEDS: oxyCODONE 5 MG Tablet PO ×3 (10:04→22:01)
[2023-10-24] MEDS: Insulin U-500 UNITS/ML PEN 45 UNITS SC (11:32)
[2023-10-24 11:41] LABS: Bedside Glucose 290 mg/dL (74-106)
[2023-10-24 16:21] LABS: Bedside Glucose 161 mg/dL (74-106)
[2023-10-24] MEDS: Insulin U-500 UNITS/ML PEN 55 UNITS SC (16:57)
[2023-10-24 19:30] VITALS: BP 145/68; PULSE 69; RESP 17; TEMP 36.6
[2023-10-24] MEDS: Atorvastatin Calcium 10 MG Tablet PO (21:18)
[2023-10-24 21:30] VITALS: PULSE 69; RESP 17; O2SAT 98
[2023-10-24 21:51] LABS: Bedside Glucose 141 mg/dL (74-106)
[2023-10-25 03:23] LABS: Bedside Glucose 136 mg/dL (74-106)
[2023-10-25] MEDS: Enoxaparin 40 MG/0.4 ML Syringe SC (06:05)
[2023-10-25] MEDS: Levothyroxine 137 MCG Tablet PO (06:06)
[2023-10-25] MEDS: Pregabalin 50 MG Capsule 100 MG PO ×3 (06:06→21:25)
[2023-10-25 07:03] LABS: Bedside Glucose 181 mg/dL (74-106)
[2023-10-25 07:29] VITALS: BP 132/64; PULSE 75; RESP 16; TEMP 36.5; O2SAT 94
[2023-10-25] MEDS: Insulin Lispro 100 UNIT/ML INSULN.PEN SC ×3 (07:58→16:40)
[2023-10-25] MEDS: Insulin U-500 UNITS/ML PEN 150 UNITS SC (07:58)
[2023-10-25] MEDS: Aspirin E.C. 81 MG Tablet PO (07:59)
[2023-10-25] MEDS: hydroCHLOROthiazide 25 MG Tablet PO (07:59)
[2023-10-25] MEDS: Ascorbic Acid 500 MG Tablet 1000 MG PO (08:00)
[2023-10-25] MEDS: Losartan Potassium 100 MG Tablet PO (08:00)
[2023-10-25] MEDS: Calcium (Elemental) 500 MG Tablet PO (08:00)
[2023-10-25] MEDS: Multivitamins,Therapeutic Tablet 1 TABLET PO (08:00)
[2023-10-25] MEDS: Loratadine 10 MG Tablet PO (08:00)
[2023-10-25] MEDS: Nystatin Powder 15gm Bottle 1 APPLIC TOPICAL ×2 (08:01→21:26)
[2023-10-25] MEDS: Cyanocobalamin 500 MCG Tablet 1000 MCG PO (08:01)
[2023-10-25 08:02] VITALS: PULSE 75
[2023-10-25] MEDS: Metoprolol(XL)Succ 100 MG Tablet PO (08:02)
[2023-10-25] MEDS: Senna/Docusate Sodium 1 Tablet 2 TABLET PO (08:02)
[2023-10-25] MEDS: Pantoprazole Sodium 40 MG Tablet PO (08:02)
[2023-10-25] MEDS: Ferrous Sulfate 325 MG Tablet PO (08:02)
[2023-10-25] MEDS: Juven (unflavored) Packet 1 PACKET PO ×2 (08:04→16:39)
[2023-10-25] MEDS: DULoxetine Hcl 60 MG Capsule PO (08:06)
[2023-10-25] MEDS: oxyCODONE 5 MG Tablet PO ×2 (09:18→21:26)
[2023-10-25] MEDS: Insulin U-500 UNITS/ML PEN 45 UNITS SC (11:09)
[2023-10-25 11:27] LABS: Bedside Glucose 310 mg/dL (74-106)
--- NOTE | 2023-10-25 12:42 | PN_ITS ---
Subjective Subjective Afebrile VSS-blood pressure over the past 2 days has ranged from 113/54 to 145/68. Heart rate is within normal limits. Maintaining appropriate oxygen saturation on RA-ranges from 94 to 98% on room air. Uses CPAP at night. Oral intake - FOOD good FLUIDS not being recorded Blood sugar record was reviewed. Patient had a snack in the middle of the night last night for blood sugar of 81. Fasting this morning was 181 and the blood sugar at noon is 310. Discussed with nursing - no problems that need addressed. Patient awakened last night to a phone alert that her blood sugar was low at 81. She was provided a snack and a recheck was 136. Reviewed the THERAPY notes Medication list reviewed. Pain in her hands of legs is good and she is tolerating the decrease in the Lyrica to 100 mg TID. She is c/o pain in her back which is chronic. Denies radiation into her legs. Had an MRI of the back 10 years ago and saw a neurosurgeon but, no indication for surgery at that time. She has a bulging disc but, nothing else of concern. No recent imaging of the back. Denies faver, sweat and chills. Pain is adequately controlled. Sleeping well at night. No N/V/abd pain. Denies CP and SOB. Objective Data Objective Data Vital Signs: Vital Signs Temp Pulse Resp BP Pulse Ox O2 Del Method 97.7 F L 75 16 132/64 H 94 Room Air 10/25/23 07:29 10/25/23 08:02 10/25/23 07:29 10/25/23 07:29 10/25/23 07:29 10/25/23 07:29 Oxygen Delivery Method Room Air Weight: 352 lb 3 oz Body Mass Index (BMI) 56.6 Intake & Output: Intake and Output for Last 24 Hours 10/23/23 10/24/23 10/25/23 23:59 23:59 23:59 Output Total 700 / 700 650 / 650 Balance -700 / -700 -650 / -650 Lab / Micro Data 10/23/23 05:38 10/23/23 05:38 Labs: Laboratory Results - last 24 hr 10/24/23 15:56: POC Glucose 161 H 10/24/23 21:16: POC Glucose 141 H 10/25/23 03:05: POC Glucose 136 H 10/25/23 06:12: POC Glucose 181 H 10/25/23 11:04: POC Glucose 310 H Physical Exam Const alert, oriented x3 and no apparent distress General Appearance: cooperative Resp clear to auscultation bilaterally Auscultation: diminished lung sounds Cardio regular rate, regular rhythm and no gallops GI normal to inspection, nondistended, normoactive bowel sounds, soft to palpation and non-tender Extremity no calf tenderness Extremity Narrative: She has some cyanosis of the pads of her fingers. She has never noticed this. She has never been diagnosed with Raynaud's but, she has been diagnosed with RA. the pain in her hands is better with the increase in the Lyrica to 100 mg TID........was on 150 mg once a day at admission to rehab. Skin Rashes: no rashes Wound Narrative: will examine the incision tomorrow. She had already had the bandage changed today when I examined her......nursing and pt tell me that it is good. Psych affect normal Assessment & Plan Assessment/Plan (1) Physical debility: (2) History of right below knee amputation: (3) Charcot ankle: QUALIFIERS: Laterality: right Qualified Code(s): M14.671 - Charcot's joint, right ankle and foot (4) Acute blood loss anemia: (5) Diabetes mellitus, type 2: QUALIFIERS: Diabetes mellitus retirement insulin use: with nuclear operator use Diabetes mellitus complication status: with kidney complications Chronic kidney disease stage: stage 3 (moderate) Chronic kidney disease stage 3 subtype: stage 3a (GFR 45-59) (6) Chronic renal failure (CRF), stage 3a: PLAN: Plan 1. Continue therapy 2. Change the sliding scale insulin to high-dose and do not cover the at bedtime blood sugar. Decrease the U-500 insulin at dinner to 50 units. 3. Give the U-500 insulin in the a.m. at 7 rather than at 730. 4. Continue ascorbic acid and Hal for wound healing and add vitamin D 400 mg daily. 5. Arthritis compounded cream to painful areas of her back 3 times daily 6. K-pad 7. Zanaflex 2 mg p.o. every 8 hours as needed muscle spasm 8. Continue to monitor blood sugars before meals and at bedtime Charges/Coding Visit Charges Inpatient E&M: 67473 Subs Hosp L1
[2023-10-25 16:30] LABS: Bedside Glucose 223 mg/dL (74-106)
[2023-10-25] MEDS: Insulin U-500 UNITS/ML PEN 50 UNITS SC (16:39)
[2023-10-25] MEDS: Arthritis Pain Compound 60 CLICK TUBE TOPICAL ×2 (16:40→21:22)
[2023-10-25 19:25] VITALS: BP 128/60; PULSE 68; RESP 17; TEMP 36.8; O2SAT 96
[2023-10-25] MEDS: Atorvastatin Calcium 10 MG Tablet PO (21:23)
[2023-10-25 22:00] VITALS: PULSE 68; RESP 17; O2SAT 97
[2023-10-25 22:35] LABS: Bedside Glucose 114 mg/dL (74-106)
[2023-10-26 04:19] LABS: Bedside Glucose 99 mg/dL (74-106)
[2023-10-26 04:19] LABS: Bedside Glucose 77 mg/dL (74-106)
[2023-10-26] MEDS: Enoxaparin 40 MG/0.4 ML Syringe SC (06:23)
[2023-10-26] MEDS: Arthritis Pain Compound 60 CLICK TUBE TOPICAL ×3 (06:23→21:49)
[2023-10-26] MEDS: Levothyroxine 137 MCG Tablet PO (06:23)
[2023-10-26] MEDS: Pregabalin 50 MG Capsule 100 MG PO ×3 (06:28→21:50)
[2023-10-26 06:52] LABS: Bedside Glucose 194 mg/dL (74-106)
[2023-10-26 07:07] VITALS: BP 132/68; PULSE 75; RESP 16; TEMP 36.4; O2SAT 95
[2023-10-26] MEDS: Juven (unflavored) Packet 1 PACKET PO ×2 (07:32→17:22)
[2023-10-26] MEDS: Loratadine 10 MG Tablet PO (07:33)
[2023-10-26] MEDS: Ascorbic Acid 500 MG Tablet 1000 MG PO (07:33)
[2023-10-26] MEDS: hydroCHLOROthiazide 25 MG Tablet PO (07:33)
[2023-10-26] MEDS: Aspirin E.C. 81 MG Tablet PO (07:33)
[2023-10-26] MEDS: Calcium (Elemental) 500 MG Tablet PO (07:33)
[2023-10-26 07:34] VITALS: PULSE 75
[2023-10-26] MEDS: DULoxetine Hcl 60 MG Capsule PO (07:34)
[2023-10-26] MEDS: Multivitamins,Therapeutic Tablet 1 TABLET PO (07:34)
[2023-10-26] MEDS: Pantoprazole Sodium 40 MG Tablet PO (07:34)
[2023-10-26] MEDS: Ferrous Sulfate 325 MG Tablet PO (07:34)
[2023-10-26] MEDS: Senna/Docusate Sodium 1 Tablet 2 TABLET PO (07:34)
[2023-10-26] MEDS: Cyanocobalamin 500 MCG Tablet 1000 MCG PO (07:34)
[2023-10-26] MEDS: Metoprolol(XL)Succ 100 MG Tablet PO (07:34)
[2023-10-26] MEDS: Losartan Potassium 100 MG Tablet PO (07:34)
[2023-10-26] MEDS: Vitamin E 400 UNITS Capsule PO (07:34)
[2023-10-26] MEDS: Insulin U-500 UNITS/ML PEN 150 UNITS SC (07:35)
[2023-10-26] MEDS: Insulin Lispro 100 UNIT/ML INSULN.PEN SC ×3 (07:35→17:21)
[2023-10-26] MEDS: Nystatin Powder 15gm Bottle 1 APPLIC TOPICAL ×2 (07:36→21:51)
--- NOTE | 2023-10-26 11:04 | PN_ITS ---
Subjective Subjective Flor was seen on team rounds today. Her Geraldo was present in the room for rounds. All their questions were answered to their satisfaction. Afebrile VSS Maintaining appropriate oxygen saturation on RA Oral intake - FOOD -good FLUIDS not being monitored currently She awoke again early this morning at 3:15 AM with a blood sugar of 77 and after a snack it was 99. She was asymptomatic. The suppertime U-500 was decreased to 50 units yesterday. Fasting blood sugar this morning was 194. She was 114 at at bedtime. Discussed with nursing - no problems that need addressed Reviewed the THERAPY notes Medication list reviewed. She is taking oxycodone 5 mg 2-3 times daily for pain. Elisabet tells me that her back pain feels better with the arthritis pain cream. She is complaining of some back tightness with therapy today. She has not taken any as needed Zanaflex. She feels her pain in the right lower extremity is adequately controlled. She denies radicular pain in both legs. She is sleeping well and has a good appetite. She admits to being depressed for the past year now that we have discussed the sx of depression with her. Obviously the Cymbalta 90 mg was not treating depression adequately. She is worried about being a burden to her family and is worried about her job which she really enjoys. She denies chest pain, shortness of breath, cough, nausea/vomiting/abdominal pain, constipation, calf pain and dysuria. She is having some difficulty with toileting and needs assist. Objective Data Objective Data Vital Signs: Vital Signs Temp Pulse Resp BP Pulse Ox O2 Del Method 97.6 F L 75 16 132/68 H 95 Room Air 10/26/23 07:07 10/26/23 07:34 10/26/23 07:07 10/26/23 07:07 10/26/23 07:07 10/26/23 07:07 Oxygen Delivery Method Room Air Weight: 352 lb 3 oz Body Mass Index (BMI) 56.6 Intake & Output: Intake and Output for Last 24 Hours 10/24/23 10/25/23 10/26/23 23:59 23:59 23:59 Intake Total 240 / 240 Output Total 650 / 650 Balance -650 / -650 240 / 240 Lab / Micro Data 10/23/23 05:38 10/23/23 05:38 Labs: Laboratory Results - last 24 hr 10/25/23 11:04: POC Glucose 310 H 10/25/23 16:08: POC Glucose 223 H 10/25/23 21:15: POC Glucose 114 H 10/26/23 03:17: POC Glucose 77 10/26/23 03:46: POC Glucose 99 10/26/23 06:28: POC Glucose 194 H Physical Exam Const alert, oriented x3 and no apparent distress General Appearance: cooperative Resp clear to auscultation bilaterally Auscultation: diminished lung sounds Cardio regular rate, regular rhythm and no gallops GI normal to inspection, nondistended, normoactive bowel sounds, soft to palpation and non-tender Extremity no calf tenderness Skin Rashes: no rashes Wound Narrative: Psych affect normal Assessment & Plan Assessment/Plan (1) Physical debility: (2) History of right below knee amputation: (3) Charcot ankle: QUALIFIERS: Laterality: right Qualified Code(s): M14.671 - Charcot's joint, right ankle and foot (4) Acute blood loss anemia: (5) Diabetes mellitus, type 2: QUALIFIERS: Diabetes mellitus intermission coordinator insulin use: with fdc use Diabetes mellitus complication status: with kidney complications Chronic kidney disease stage: stage 3 (moderate) Chronic kidney disease stage 3 subtype: stage 3a (GFR 45-59) (6) Chronic renal failure (CRF), stage 3a: (7) Depression: PLAN: Plan 1. Continue therapy 2. Decrease the U-500 at suppertime to 45 units. 3. Increase the a.m. U-500 to 160 units and change the time to 06:30. 4. Add Wellbutrin XL 150 mg QAM 5. I recommended psychotherapy post DC to help her to deal with her chronic illnesses and the new disability due to R BKA. She is agreeable to this. Elisabet now realizes that she has been depressed for the past year, despite taking duloxetine 90 mg daily. Duloxetine was originally started for pain in the feet but, it did not control the pain in her hands and she was started on Lyrica with good control of the neuropathic pain. She c/o brain fog, memory difficulties, lack of motivation. She is agreeable to trying Wellbutrin as an antidepressant. I am hoping this will help control depression and appetite. If she tolerates the Wellbutrin may transition to Wellbutrin/Naltrexone as an OP to promote weight loss. Continue to taper Duloxetine Every 1-2 weeks until off. Charges/Coding Visit Charges Inpatient E&M: 23994 Subs Hosp L2
[2023-10-26 11:41] LABS: Bedside Glucose 246 mg/dL (74-106)
[2023-10-26] MEDS: tiZANidine HCl 2 MG Tablet PO (11:49)
[2023-10-26] MEDS: Insulin U-500 UNITS/ML PEN 45 UNITS SC ×2 (12:10→17:21)
--- NOTE | 2023-10-26 13:53 | CASEMGMT ---
Social Work IDT group met with patient and at bedside. SW notified patient and that the patient [employer] insurance next review date for insurance is 11/02/2023. SW reviewed PHQ-9 evaluation with the patient to discuss results of (05/22). Patient is aware that she will required continued support from family and friends. The patient expressed that she will communicate needs with family. Physician provided in-depth review of depression diagnosis and medication adjustments. Patient will start on Wellbutrin. SW recommend continued counseling support for transition. SW discussed home health care support with patient and . Patient is agreeable to services, if recommended at discharge. SW to follow up with patient and family regarding choice for home health care. MANJEET Kang
[2023-10-26 17:02] LABS: Bedside Glucose 200 mg/dL (74-106)
[2023-10-26 20:00] VITALS: BP 108/50; PULSE 72; RESP 20; TEMP 36.9; O2SAT 94
[2023-10-26 21:35] LABS: Bedside Glucose 153 mg/dL (74-106)
[2023-10-26] MEDS: Atorvastatin Calcium 10 MG Tablet PO (21:49)
[2023-10-27] MEDS: Enoxaparin 40 MG/0.4 ML Syringe SC (06:29)
[2023-10-27] MEDS: Levothyroxine 137 MCG Tablet PO (06:29)
[2023-10-27] MEDS: Pregabalin 50 MG Capsule 100 MG PO ×3 (06:29→21:13)
[2023-10-27] MEDS: Arthritis Pain Compound 60 CLICK TUBE TOPICAL ×3 (06:30→21:14)
[2023-10-27 06:53] LABS: Bedside Glucose 112 mg/dL (74-106)
[2023-10-27 07:28] VITALS: BP 137/69; PULSE 73; RESP 16; TEMP 36.3; O2SAT 95
[2023-10-27] MEDS: Juven (unflavored) Packet 1 PACKET PO ×2 (08:45→17:25)
[2023-10-27] MEDS: Calcium (Elemental) 500 MG Tablet PO (08:46)
[2023-10-27] MEDS: Ascorbic Acid 500 MG Tablet 1000 MG PO (08:46)
[2023-10-27] MEDS: Ferrous Sulfate 325 MG Tablet PO (08:46)
[2023-10-27] MEDS: Loratadine 10 MG Tablet PO (08:46)
[2023-10-27] MEDS: Aspirin E.C. 81 MG Tablet PO (08:46)
[2023-10-27] MEDS: hydroCHLOROthiazide 25 MG Tablet PO (08:46)
[2023-10-27] MEDS: Pantoprazole Sodium 40 MG Tablet PO (08:46)
[2023-10-27] MEDS: Multivitamins,Therapeutic Tablet 1 TABLET PO (08:46)
[2023-10-27] MEDS: Vitamin E 400 UNITS Capsule PO (08:46)
[2023-10-27 08:47] VITALS: BP 137/69; PULSE 73
[2023-10-27] MEDS: DULoxetine Hcl 60 MG Capsule PO (08:47)
[2023-10-27] MEDS: Metoprolol(XL)Succ 100 MG Tablet PO (08:47)
[2023-10-27] MEDS: Losartan Potassium 100 MG Tablet PO (08:47)
[2023-10-27] MEDS: Cyanocobalamin 500 MCG Tablet 1000 MCG PO (08:47)
[2023-10-27] MEDS: Insulin U-500 UNITS/ML PEN 160 UNITS SC (08:48)
[2023-10-27] MEDS: buPROPion (XL) 150 MG TABLET.XL PO (08:49)
[2023-10-27] MEDS: Nystatin Powder 15gm Bottle 1 APPLIC TOPICAL ×2 (08:56→21:13)
[2023-10-27] MEDS: Insulin Lispro 100 UNIT/ML INSULN.PEN SC (12:08)
[2023-10-27] MEDS: Insulin U-500 UNITS/ML PEN 45 UNITS SC ×2 (12:08→17:28)
[2023-10-27 12:34] LABS: Bedside Glucose 240 mg/dL (74-106)
--- NOTE | 2023-10-27 13:26 | PCM.PROGNOTE ---
Subjective Subjective Afebrile VSS Maintaining appropriate oxygen saturation on RA Oral intake - FOOD good FLUIDS fair to good Discussed with nursing - no problems that need addressed Reviewed the THERAPY notes Medication list reviewed. Back pain is doing better. Denies CP, SOB at rest, palpitations, N/V/abd pain, dysuria, calf tenderness and lightheadedness. She states that she is always thirsty. She is having some polyuria from uncontrolled blood sugars and she is also on hydrochlorothiazide for many years for hypertension. She is on HCTZ and a Beta dg for HTN. Had SVT in the past. No hx of AFIB. Has not had any SVT since the ablation. Both HCTZ and beta blockers increase insulin resistance and the beta dg blunts the response to low blood sugars and be associated with fatigue. She is also taking Cozaar. She had her first dose of Wellbutrin today and denies CORNEJO. Tells me that with the stool softeners she is having regular BM's. Objective Data Objective Data Vital Signs: Vital Signs Temp Pulse Resp BP Pulse Ox O2 Del Method 97.3 F L 73 16 137/69 H 95 Room Air 10/27/23 07:28 10/27/23 08:47 10/27/23 07:28 10/27/23 08:47 10/27/23 07:28 10/27/23 07:28 Oxygen Delivery Method Room Air Weight: 352 lb 3 oz Body Mass Index (BMI) 56.6 Intake & Output: Intake and Output for Last 24 Hours 10/25/23 10/26/23 10/27/23 23:59 23:59 23:59 Intake Total 720 / 720 Output Total 850 / 850 Balance 720 / 720 -850 / -850 Lab / Micro Data 10/23/23 05:38 10/23/23 05:38 Labs: Laboratory Results - last 24 hr 10/26/23 16:36: POC Glucose 200 H 10/26/23 21:15: POC Glucose 153 H 10/27/23 06:28: POC Glucose 112 H 10/27/23 12:07: POC Glucose 240 H Physical Exam Const alert and oriented x3 Constitutional Narrative: Very motivated to get better and heal so that she can be fitted with a prosthesis and start walking again. General Appearance: cooperative HEENT Mouth: dry mucous membranes Resp clear to auscultation bilaterally Auscultation: diminished lung sounds Cardio regular rate, regular rhythm and no gallops Cardio Narrative: Distant heart sounds, likely related to body habitus. GI normal to inspection, nondistended, normoactive bowel sounds, soft to palpation and non-tender Extremity no calf tenderness General Extremity: Negative for edema Skin Wound Narrative: There is some resolving bruising around the incision. She has increased sherif-incisional erythema when compared to my first exam. The erythema is blanchable. There is no DC from the incision but there is some dried serosanguineous discharge on the gauze. No odor. Mild pitting edema of the stump. She denies any sweats or chills. Assessment & Plan Assessment/Plan (1) Physical debility: (2) History of right below knee amputation: (3) Charcot ankle: QUALIFIERS: Laterality: right Qualified Code(s): M14.671 - Charcot's joint, right ankle and foot (4) Acute blood loss anemia: (5) Diabetes mellitus, type 2: QUALIFIERS: Diabetes mellitus ferry terminal supervisor insulin use: with chcf use Diabetes mellitus complication status: with kidney complications Chronic kidney disease stage: stage 3 (moderate) Chronic kidney disease stage 3 subtype: stage 3a (GFR 45-59) (6) Chronic renal failure (CRF), stage 3a: (7) Depression: QUALIFIERS: Depression Type: reactive depression Qualified Code(s): F32.9 - Major depressive disorder, single episode, unspecified PLAN: Plan 1. Continue therapy 2. DC Cozaar and start Zestril 20 mg daily in the AM. Would like to be able to at least decrease the beta-dg if possible. Suspect she may need 20 mg BID of Zestril if we are going to be able to decrease the Metoprolol. 3. Discontinue hydrochlorothiazide. Creatinine was mildly elevated on the and she has dry mucous membranes and is complaining of constant thirst. She has been on this for many years for hypertension. 4. Check a CBC with differential, BMP, magnesium, ESR and CRP in the a.m. 5. Reexamine the wound in the AM. 6. Continue to hold Enbrel. 7. Continue vitamin C, vitamin D and Hal for wound healing 8. Consult Dr. Hilliard to manage blood sugars Spent 40 minutes with this patient today, 30 minutes was spent educating and answering her question and the other 10 minutes reviewing lab and completing documentation and orders. Charges/Coding Visit Charges Inpatient E&M: 96035 Subs Hosp L2
[2023-10-27 17:23] LABS: Bedside Glucose 103 mg/dL (74-106)
[2023-10-27 20:34] VITALS: BP 141/69; PULSE 73; RESP 18; TEMP 36.2; O2SAT 95
[2023-10-27] MEDS: Atorvastatin Calcium 10 MG Tablet PO (21:13)
[2023-10-27] MEDS: Senna/Docusate Sodium 1 Tablet 2 TABLET PO (21:13)
[2023-10-27 21:21] LABS: Bedside Glucose 74 mg/dL (74-106)
[2023-10-28 05:53] LABS: Absolute Lymphocyte Count 1.94 X10^3/uL (0.83-4.51); Absolute Neutrophil Count 3.6 X10^3/uL (2.0-7.7); Basophil# 0.06 X10^3/uL; Basophil% 0.9 % (0-1); Eosinophil# 0.41 X10^3/uL; Eosinophils% 5.9 % (0-5); Hematocrit 34.2 % (37-47); Hemoglobin 11.3 g/dL (12.0-15.0); Lymphocyte # 1.94 X10^3/ul (0.83-4.51); Lymphocyte % 27.9 % (19-41); Mean Corpuscular Hgb 31.3 pg (27.0-32.0); Mean Corpuscular Volume 94.7 fL (81-99); Mean Platelet Vol. 9.6 fl (6.2-12.0); Monocyte# 0.87 X10^3/uL; Monocyte% 12.5 % (0-10); NRBC Flagged by Analyzer 0 % (0-5); Neutrophil # 3.63 X10^3/uL (2.7-7.7); Neutrophil % 52.2 % (47-70); Platelet Count 212 K/mm3 (150-450); RBC Distribution Width CV 13.6 % (11.6-14.6); RBC Distribution Width SD 47.6 fl (35.1-43.9); Red Blood Count 3.61 M/mm3 (4.2-5.4)
[2023-10-28 05:56] LABS: Bedside Glucose 83 mg/dL (74-106)
[2023-10-28 06:21] LABS: Anion Gap 5 (5-15); BUN 48 mg/dL (7-18); BUN/Creat Ratio 25.4 RATIO (10-20); Calcium,Total 9.3 mg/dL (8.5-10.1); Chloride 102 mmol/L (98-107); Creatinine, Serum 1.89 mg/dL (0.55-1.02); EST Glomerular Filtration Rate 29 mL/min (>60); Est Glom Filt Rate - Afr Amer 35 mL/min (>60); Estimated Creatinine Clearance 48.47 ml/min; Glucose 90 mg/dL (74-106); Magnesium 2.1 mg/dL (1.6-2.6); Potassium 3.9 mmol/L (3.5-5.1); Sodium Level 139 mmol/L (136-145)
[2023-10-28] MEDS: Arthritis Pain Compound 60 CLICK TUBE TOPICAL ×3 (06:41→22:32)
[2023-10-28] MEDS: Enoxaparin 40 MG/0.4 ML Syringe SC (06:41)
[2023-10-28] MEDS: Pregabalin 50 MG Capsule 100 MG PO ×3 (06:41→21:24)
[2023-10-28] MEDS: Levothyroxine 137 MCG Tablet PO (06:43)
[2023-10-28 07:11] VITALS: BP 117/66; PULSE 65; RESP 17; TEMP 36.2; O2SAT 92
[2023-10-28 07:52] VITALS: PULSE 65
[2023-10-28] MEDS: Metoprolol(XL)Succ 100 MG Tablet PO (07:52)
[2023-10-28] MEDS: Aspirin E.C. 81 MG Tablet PO (07:52)
[2023-10-28] MEDS: Calcium (Elemental) 500 MG Tablet PO (07:52)
[2023-10-28] MEDS: Vitamin E 400 UNITS Capsule PO (07:52)
[2023-10-28] MEDS: Juven (unflavored) Packet 1 PACKET PO ×2 (07:53→17:21)
[2023-10-28] MEDS: Pantoprazole Sodium 40 MG Tablet PO (07:53)
[2023-10-28] MEDS: Ferrous Sulfate 325 MG Tablet PO (07:53)
[2023-10-28] MEDS: DULoxetine Hcl 60 MG Capsule PO (07:53)
[2023-10-28] MEDS: Multivitamins,Therapeutic Tablet 1 TABLET PO (07:53)
[2023-10-28] MEDS: Ascorbic Acid 500 MG Tablet 1000 MG PO (07:54)
[2023-10-28] MEDS: Cyanocobalamin 500 MCG Tablet 1000 MCG PO (07:54)
[2023-10-28] MEDS: Lisinopril 20 MG Tablet PO (07:55)
[2023-10-28] MEDS: Loratadine 10 MG Tablet PO (07:55)
[2023-10-28] MEDS: buPROPion (XL) 150 MG TABLET.XL PO (07:56)
[2023-10-28] MEDS: Nystatin Powder 15gm Bottle 1 APPLIC TOPICAL ×2 (07:57→21:25)
[2023-10-28] MEDS: Insulin U-500 UNITS/ML PEN 160 UNITS SC (07:59)
--- NOTE | 2023-10-28 08:01 | PCM.PROGNOTE ---
Subjective Subjective Afebrile VSS Maintaining appropriate oxygen saturation on RA Oral intake - FOOD good FLUIDS adequate Discussed with nursing - no problems that need addressed Reviewed the THERAPY notes Medication list reviewed. All lab from this morning was personally reviewed. White blood cell count is normal at 7. Hemoglobin is stable around 11.3. Platelets are within normal limits. Sodium and potassium are normal. The BUN is up to 48 with a creatinine of 1.89. Creatinine was 1.25 at admission to rehab. Magnesium is normal at 2.1. ESR is pending. CRP is elevated at 53.3. Denies fevers, night sweats, shaking chills, cephalgia, cough, sore throat, abdominal pain, chest pain, shortness of breath at rest and dysuria. She tells me she is urinating approximately every 4 hours. She was seen by Dr. Hilliard today. Insulin regimen adjusted. Pt agreeable to restarting Ozempic. Metamucil added to drug regimen for constipation when taking Ozempic. She was weighed today but the wt was not entered yet. She was weighed on the scale in the therapy room and not on the bed scale. The initial weight was obtained from the bed scale. I reviewed the results of the stress test done to [facility] in 2016. There were no regional wall motion abnormalities and the ejection fraction was 75%. She had no reversible defects with stress. She was exercised on a Rey protocol for 3 minutes and 13 seconds. She achieved 96% of her maximum predicted heart rate. Objective Data Objective Data Vital Signs: Vital Signs Temp Pulse Resp BP Pulse Ox O2 Del Method 97.2 F L 65 17 117/66 92 Room Air 10/28/23 07:11 10/28/23 07:52 10/28/23 07:11 10/28/23 07:11 10/28/23 07:11 10/28/23 07:11 Oxygen Delivery Method Room Air Weight: 352 lb 3 oz Body Mass Index (BMI) 56.6 Intake & Output: Intake and Output for Last 24 Hours 10/26/23 10/27/23 10/28/23 23:59 23:59 23:59 Intake Total 720 / 720 1150 / 1150 Output Total 850 / 850 Balance 720 / 720 300 / 300 Lab / Micro Data 10/28/23 05:35 10/28/23 05:35 Labs: Laboratory Results - last 24 hr 10/27/23 12:07: POC Glucose 240 H 10/27/23 16:59: POC Glucose 103 10/27/23 20:59: POC Glucose 74 10/28/23 05:35: WBC 7.0, RBC 3.61 L, Hgb 11.3 L, Hct 34.2 L, MCV 94.7, MCH 31.3, MCHC 33.0, RDW Std Deviation 47.6 H, RDW Coeff of Roland 13.6, Plt Count 212, MPV 9.6, Immature Gran % (Auto) 0.600, Neut % (Auto) 52.2, Lymph % (Auto) 27.9, George % (Auto) 12.5 H, Eos % (Auto) 5.9 H, Baso % (Auto) 0.9, Absolute Neuts (auto) 3.6, Absolute Lymphs (auto) 1.94, Nucleated RBC % 0, Sodium 139, Potassium 3.9, Chloride 102, Carbon Dioxide 32.0, Anion Gap 5, BUN 48 H, Creatinine 1.89 H, Estim Creat Clear Calc 48.47, Est GFR (MDRD) Af Amer 35 L, Est GFR (MDRD) Non-Af 29 L, BUN/Creatinine Ratio 25.4 H, Glucose 90, Calcium 9.3, Magnesium 2.1, C-React Prot Ext Range 53.30 H 10/28/23 05:37: POC Glucose 83 Physical Exam Const alert, oriented x3 and no apparent distress General Appearance: cooperative HEENT Mouth: dry mucous membranes Resp clear to auscultation bilaterally Auscultation: diminished lung sounds Cardio regular rate and regular rhythm GI normal to inspection, nondistended, normoactive bowel sounds, soft to palpation and non-tender Extremity Extremity Narrative: No ankle edema of the LLE Skin Rashes: no rashes Wound Narrative: The incision looks better today than yesterday. there is less sherif-incisional erythema. No dehiscence, no purulent DC. No pain with palpation around the incision. The has some soreness and redness of the crease behind the knee where the gaming floor supervisor is rubbing. No skin breakdown. 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 Suspect this is due to IV volume depletion. PLAN: Plan 1. Continue therapy 2. Restart Ozempic 3. Rather than giving U-500 insulin at supper will give at bedtime per Dr. Hilliard's orders. Custom sliding scale lispro was ordered by Dr. Ramos. 4. Continue Wellbutrin and taper the Cymbalta down to 30 mg daily and another 1 to 2 weeks. 5. Check a UA today for complaint of urinary urgency and frequency 6. Check urine sodium and urine creatinine to calculate the fractional excretion of sodium. I suspect the acute renal failure is secondary to intravascular volume depletion secondary to uncontrolled blood sugars and hydrochlorothiazide. 7. Bolus with 1 L of normal saline over 1 hour and then run on IV at 75 cc/h to hydrate. 8. Recheck a BMP in the a.m. 9. I suspect the increase in the CRP is due to being off Enbrel and due to inflammation related to the recent surgery. WBC is normal with an unremarkable differential and she is AF. 10. If the creat is not better tomorrow will hold the PETER and consult nephrology. Charges/Coding Visit Charges Inpatient E&M: 27277 Subs Hosp L2
[2023-10-28] MEDS: Psyllium 1 PACKET 2 PACKET PO (10:52)
[2023-10-28 11:02] VITALS: BMI 55.0
[2023-10-28 11:13] LABS: Bacteria 0 SEEN /hpf (None Seen); Mucous, Urine 0 SEEN /hpf (<or=2+); Red Blood Cells-Urine 0 SEEN /hpf (0-5); White Blood Cells 0 SEEN /hpf (0-5)
[2023-10-28 11:15] LABS: Color, Urine Yellow (Yellow); Glucose, Dipstick Normal (Normal); Ketone-Dipstick Negative (Negative); Leukocyte Esterase-Dipstick Negative /ul (Negative); Nitrite-Dipstick Negative (Negative); Occult Blood-Urine Negative /ul (Negative); Protein-Dipstick Negative (Negative); Urine Bilirubin Dipstick Negative (Negative); Urine Clarity Sl. Cloudy (Clear); Urine Urobilinogen Normal (Normal); Urine pH 6.5 (5.0 - 8.0)
[2023-10-28 11:24] LABS: Squamous Epithelial Cells - UA 0-5 SEEN /hpf (5-10)
[2023-10-28 11:25] LABS: Bedside Glucose 163 mg/dL (74-106)
[2023-10-28 11:29] LABS: Urine Sodium 42 mmol/L (Not Establ.)
[2023-10-28] MEDS: 0.9% Saline Lock 10 ML Syringe IV (12:30)
[2023-10-28] MEDS: 0.9% Normal Saline (1000mL) 1,000 ML 999 ML IV (12:30)
[2023-10-28] MEDS: Insulin U-500 UNITS/ML PEN 45 UNITS SC ×2 (12:37→21:27)
[2023-10-28 12:44] LABS: Erythrocyte Sedimentation Rate 31 mm/hr (0-30)
[2023-10-28] MEDS: 0.9% Normal Saline (1000mL) 1,000 ML 75 ML IV (13:35)
[2023-10-28 16:30] LABS: Bedside Glucose 44 mg/dL (74-106)
[2023-10-28 17:35] LABS: Bedside Glucose 81 mg/dL (74-106)
--- NOTE | 2023-10-28 18:24 | NURSING ---
1600 blood sugar 44 80z coke and snake given. recheck 88
[2023-10-28 21:00] VITALS: BP 122/56; PULSE 69; RESP 18; TEMP 36.6; O2SAT 98
[2023-10-28] MEDS: Senna/Docusate Sodium 1 Tablet 2 TABLET PO (21:24)
[2023-10-28] MEDS: Atorvastatin Calcium 10 MG Tablet PO (21:24)
[2023-10-28 21:38] LABS: Bedside Glucose 218 mg/dL (74-106)
[2023-10-29] MEDS: 0.9% Normal Saline (1000mL) 1,000 ML 75 ML IV ×2 (03:00→21:08)
[2023-10-29] MEDS: Arthritis Pain Compound 60 CLICK TUBE TOPICAL ×3 (06:13→21:57)
[2023-10-29] MEDS: Enoxaparin 40 MG/0.4 ML Syringe SC (06:15)
[2023-10-29] MEDS: Levothyroxine 137 MCG Tablet PO (06:15)
[2023-10-29] MEDS: Pregabalin 50 MG Capsule 100 MG PO ×2 (06:15→14:03)
[2023-10-29 06:27] LABS: Bedside Glucose 186 mg/dL (74-106)
[2023-10-29 06:40] LABS: Anion Gap 7 (5-15); BUN 39 mg/dL (7-18); BUN/Creat Ratio 26.9 RATIO (10-20); Calcium,Total 8.8 mg/dL (8.5-10.1); Chloride 105 mmol/L (98-107); Creatinine, Serum 1.45 mg/dL (0.55-1.02); EST Glomerular Filtration Rate 39 mL/min (>60); Est Glom Filt Rate - Afr Amer 47 mL/min (>60); Estimated Creatinine Clearance 62.02 ml/min; Glucose 183 mg/dL (74-106); Potassium 4.4 mmol/L (3.5-5.1); Sodium Level 138 mmol/L (136-145)
[2023-10-29] MEDS: Insulin U-500 UNITS/ML PEN 160 UNITS SC (07:00)
[2023-10-29] MEDS: Juven (unflavored) Packet 1 PACKET PO ×2 (07:51→17:17)
[2023-10-29] MEDS: Senna/Docusate Sodium 1 Tablet 2 TABLET PO ×2 (07:51→22:01)
[2023-10-29] MEDS: Lisinopril 20 MG Tablet PO (07:51)
[2023-10-29 07:52] VITALS: BP 146/61; PULSE 69
[2023-10-29] MEDS: Pantoprazole Sodium 40 MG Tablet PO (07:52)
[2023-10-29] MEDS: Metoprolol(XL)Succ 100 MG Tablet PO (07:52)
[2023-10-29] MEDS: Aspirin E.C. 81 MG Tablet PO (07:52)
[2023-10-29] MEDS: Cyanocobalamin 500 MCG Tablet 1000 MCG PO (07:52)
[2023-10-29] MEDS: Ascorbic Acid 500 MG Tablet 1000 MG PO (07:52)
[2023-10-29] MEDS: Loratadine 10 MG Tablet PO (07:52)
[2023-10-29] MEDS: Ferrous Sulfate 325 MG Tablet PO (07:53)
[2023-10-29] MEDS: DULoxetine Hcl 60 MG Capsule PO (07:53)
[2023-10-29] MEDS: buPROPion (XL) 150 MG TABLET.XL PO (07:53)
[2023-10-29] MEDS: Multivitamins,Therapeutic Tablet 1 TABLET PO (07:53)
[2023-10-29] MEDS: Vitamin E 400 UNITS Capsule PO (07:53)
[2023-10-29] MEDS: Psyllium 1 PACKET 2 PACKET PO (07:53)
[2023-10-29] MEDS: Calcium (Elemental) 500 MG Tablet PO (07:53)
[2023-10-29] MEDS: Insulin Lispro 100 UNIT/ML INSULN.PEN SC ×2 (08:00→12:06)
[2023-10-29] MEDS: Nystatin Powder 15gm Bottle 1 APPLIC TOPICAL ×2 (08:01→22:00)
[2023-10-29 09:06] VITALS: BP 146/61; PULSE 69; RESP 17; TEMP 36.6; O2SAT 96
--- NOTE | 2023-10-29 09:36 | PN_ITS ---
Subjective Subjective Afebrile VSS Maintaining appropriate oxygen saturation on RA Oral intake - FOOD good FLUIDS poor oral intake of fluids yesterday but, nursing has not been recording the I&O's. She only had 600 cc. No urine output recorded for the past 2 days. I know that she had a straight cath yesterday AM for 750 and nursing tells me that she voided several times yesterday. Weight is down 10 pounds since admission however the weight yesterday was on the scale and the initial weight was in bed weight. BS record was reviewed. She was hypoglycemic yesterday at supper. Recheck sugar was 218 and the fasting this morning is 186. Discussed with nursing - no problems that need addressed Reviewed the THERAPY notes Medication list reviewed. Sodium today is 138 with a potassium of 4.4. The BUN is down to 39 from 48 and the creatinine today is 1.45, down from 1.89 yesterday. Fractional excretion of sodium yesterday was 1.4% which is indeterminate. FENA likely altered due to HCTZ which was discontinued the previous day. UA showed no WBCs and no RBCs. Specific gravity was 1.01. Elisabet denies shortness of breath at rest, chest pain, cephalgia, nausea/vomiting, constipation/diarrhea, dysuria and calf pain on the left. She denies any pain in the right leg. She tells me she is still frequently urinating. She continues to feel thirsty. Good oral fluid intake today. Mucous membranes are still dry. Admits to feeling a little lightheaded when working with therapy today. Objective Data Objective Data Vital Signs: Vital Signs Temp Pulse Resp BP Pulse Ox O2 Del Method 97.9 F 69 17 146/61 H 96 Room Air 10/29/23 09:06 10/29/23 09:06 10/29/23 09:06 10/29/23 09:06 10/29/23 09:06 10/29/23 09:06 Oxygen Delivery Method Room Air Weight: 342 lb 2.519 oz Body Mass Index (BMI) 55.0 Intake & Output: Intake and Output for Last 24 Hours 10/27/23 10/28/23 10/29/23 23:59 23:59 23:59 Intake Total 1150 / 1150 1600 / 1600 1240 / 1240 Output Total 850 / 850 Balance 300 / 300 1600 / 1600 1240 / 1240 Lab / Micro Data 10/28/23 05:35 10/29/23 05:44 Labs: Laboratory Results - last 24 hr 10/28/23 05:35: ESR 31 H 10/28/23 10:53: Urine Color Yellow, Urine Clarity Sl. Cloudy, Urine pH 6.5, Ur Specific Mohawk 1.010, Urine Protein Negative, Urine Glucose (UA) Normal, Urine Ketones Negative, Urine Occult Blood Negative, Urine Nitrite Negative, Urine Bilirubin Negative, Urine Urobilinogen Normal, Ur Leukocyte Esterase Negative, Urine RBC 0 SEEN, Urine WBC 0 SEEN, Ur Squamous Epith Cells 0-5 SEEN, Urine Bacteria 0 SEEN, Urine Mucus 0 SEEN, Ur Random Sodium 42, Urine Creatinine 42.20 10/28/23 10:54: POC Glucose 163 H 10/28/23 16:08: POC Glucose 44 L* 10/28/23 16:34: POC Glucose 81 10/28/23 21:14: POC Glucose 218 H 10/29/23 05:44: Sodium 138, Potassium 4.4, Chloride 105, Carbon Dioxide 26.0, Anion Gap 7, BUN 39 H, Creatinine 1.45 H, Estim Creat Clear Calc 62.02, Est GFR (MDRD) Af Amer 47 L, Est GFR (MDRD) Non-Af 39 L, BUN/Creatinine Ratio 26.9 H, Glucose 183 H, Calcium 8.8 10/29/23 06:03: POC Glucose 186 H Physical Exam Const alert, oriented x3 and no apparent distress Constitutional Narrative: Very motivated to get better and heal so that she can be fitted with a prosthesis and start walking again. General Appearance: cooperative Nutritional Appearance: morbidly obese HEENT moist oral mucous membranes Eyes PERRL, EOMs intact bilaterally, conjunctivae normal and no scleral icterus Neck no lymphadenopathy, supple, no JVD and no carotid bruits Neck Narrative: short thick neck Chest Chest: symmetrical chest wall rise Resp clear to auscultation bilaterally Resp Narrative: Not tachypneic and no conversational dyspnea. Dimished BS throughout......may be related to body habitus Auscultation: diminished lung sounds Cardio regular rate and regular rhythm Cardio Narrative: Distant heart sounds, likely related to body habitus. GI normal to inspection, nondistended, normoactive bowel sounds, soft to palpation and non-tender GI Narrative: No guarding with palpation. Morbidly obese, Extremity no calf tenderness Extremity Narrative: the incision is intact with no dehiscence. There is no non-blanchable erythema and there is no purulent DC. The lateral end of the incision is a little mushy.....possible hematoma? No ankle edema on the left. The crease behind the knee feels better since we started padding it yesterday. General Extremity: Negative for edema Skin no jaundice Skin Narrative: No rashes, no skin breakdown. See extremity exam fo description of the R BKA incision. Rashes: no rashes Wound Narrative: The incision looks better today than yesterday. there is less sherif-incisional erythema. No dehiscence, no purulent DC. No pain with palpation around the incision. The has some soreness and redness of the crease behind the knee where the slab tripper is rubbing. No skin breakdown. Neuro oriented x3, CN's II-XII intact bilaterally and no focal motor deficits Neuro Narrative: Decreased sensation in the hands and distal LLE. Psych thought process normal, cooperative and affect normal Psych Narrative: Appropriate, making good eye contact. Able to stay on topic and focus. No flight of ideas. Does not appear anxious or depressed. Conversant and relating well to staff. 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 helper use Diabetes mellitus complication status: with kidney complications Chronic kidney disease stage: stage 3 (moderate) Chronic kidney disease stage 3 subtype: stage 3a (GFR 45-59) (6) Chronic renal failure (CRF), stage 3a: (7) Depression: QUALIFIERS: Depression Type: reactive depression Qualified Code(s): F32.9 - Major depressive disorder, single episode, unspecified (8) Acute on chronic renal failure: QUALIFIERS: Acute renal failure type: unspecified Chronic kidney disease stage: stage 3 (moderate) Chronic kidney disease stage 3 subtype: stage 3a (GFR 45-59) Qualified Code(s): N17.9 - Acute kidney failure, unspecified; N18.31 - Chronic kidney disease, stage 3a PLAN: Due to IV volume depletion. Improving with hydration. Will continue fluids IV. she has increased her oral fluid intake. PLAN: Plan 1. Continue therapy 2. Recheck a BMP and H&H in the a.m. 3. Monitor the lateral side of the incision closely. I suspect she has localized fluid accumulation due to the stump being dependent with therapy. Sed rate was only 31 and the CRP was 53. Some of the increased inflammation is like ly due to holding the Enbrel. If she has any low-grade fever or increased serosanguineous drainage we will do an ultrasound of the stump to rule out localized fluid accumulation. Mems Device Scientist sock still fitting tight and no need for additional stockings to keep the cast firmly on the distal stump. 4. Appreciate Dr. Hilliard's help in managing the BS's. Charges/Coding Visit Charges Inpatient E&M: 14118 Subs Hosp L1
[2023-10-29 11:16] LABS: Bedside Glucose 250 mg/dL (74-106)
[2023-10-29] MEDS: Insulin U-500 UNITS/ML PEN 45 UNITS SC ×2 (12:07→21:59)
[2023-10-29 17:00] LABS: Bedside Glucose 71 mg/dL (74-106)
[2023-10-29 19:16] VITALS: BP 126/51; PULSE 68; RESP 18; TEMP 36.2; O2SAT 99
[2023-10-29 21:22] LABS: Bedside Glucose 248 mg/dL (74-106)
[2023-10-29] MEDS: oxyCODONE 5 MG Tablet PO (21:57)
[2023-10-29 22:00] VITALS: PULSE 68; RESP 15; O2SAT 99
[2023-10-29] MEDS: Atorvastatin Calcium 10 MG Tablet PO (22:00)
[2023-10-29] MEDS: Pregabalin 75 MG Capsule 150 MG PO (22:00)
[2023-10-30 02:21] LABS: Bedside Glucose 97 mg/dL (74-106)
[2023-10-30 05:58] LABS: Hematocrit 32.2 % (37-47); Hemoglobin 10.5 g/dL (12.0-15.0)
[2023-10-30] MEDS: Enoxaparin 40 MG/0.4 ML Syringe SC (06:30)
[2023-10-30] MEDS: Levothyroxine 137 MCG Tablet PO (06:31)
[2023-10-30] MEDS: Arthritis Pain Compound 60 CLICK TUBE TOPICAL ×3 (06:36→21:32)
[2023-10-30 06:44] LABS: Anion Gap 5 (5-15); BUN 31 mg/dL (7-18); BUN/Creat Ratio 26.3 RATIO (10-20); Calcium,Total 9.1 mg/dL (8.5-10.1); Chloride 106 mmol/L (98-107); Creatinine, Serum 1.18 mg/dL (0.55-1.02); EST Glomerular Filtration Rate 49 mL/min (>60); Est Glom Filt Rate - Afr Amer 60 mL/min (>60); Estimated Creatinine Clearance 76.21 ml/min; Glucose 115 mg/dL (74-106); Sodium Level 140 mmol/L (136-145)
[2023-10-30 06:46] LABS: Bedside Glucose 101 mg/dL (74-106)
[2023-10-30] MEDS: Insulin U-500 UNITS/ML PEN 160 UNITS SC (07:29)
[2023-10-30] MEDS: Senna/Docusate Sodium 1 Tablet 2 TABLET PO (07:31)
[2023-10-30] MEDS: Juven (unflavored) Packet 1 PACKET PO ×2 (07:31→17:32)
[2023-10-30] MEDS: Pregabalin 50 MG Capsule 100 MG PO ×2 (07:31→16:18)
[2023-10-30] MEDS: Calcium (Elemental) 500 MG Tablet PO (07:31)
[2023-10-30] MEDS: Multivitamins,Therapeutic Tablet 1 TABLET PO (07:31)
[2023-10-30] MEDS: Ferrous Sulfate 325 MG Tablet PO (07:32)
[2023-10-30] MEDS: 0.9% Saline Lock 10 ML Syringe IV (07:33)
[2023-10-30] MEDS: Lisinopril 20 MG Tablet PO (07:36)
[2023-10-30] MEDS: Vitamin E 400 UNITS Capsule PO (07:36)
[2023-10-30 08:51] VITALS: BP 122/56; PULSE 64; RESP 16; TEMP 36.6; O2SAT 95
[2023-10-30 10:06] VITALS: BMI 55.3
[2023-10-30] MEDS: Loratadine 10 MG Tablet PO (10:13)
[2023-10-30] MEDS: DULoxetine Hcl 60 MG Capsule PO (10:13)
[2023-10-30] MEDS: Pantoprazole Sodium 40 MG Tablet PO (10:13)
[2023-10-30 10:14] VITALS: PULSE 64
[2023-10-30] MEDS: Metoprolol(XL)Succ 100 MG Tablet PO (10:14)
[2023-10-30] MEDS: Psyllium 1 PACKET 2 PACKET PO (10:14)
[2023-10-30] MEDS: Aspirin E.C. 81 MG Tablet PO (10:15)
[2023-10-30] MEDS: Ascorbic Acid 500 MG Tablet 1000 MG PO (10:15)
[2023-10-30] MEDS: Cyanocobalamin 500 MCG Tablet 1000 MCG PO (10:16)
[2023-10-30] MEDS: Nystatin Powder 15gm Bottle 1 APPLIC TOPICAL ×2 (10:17→21:34)
[2023-10-30] MEDS: buPROPion (XL) 150 MG TABLET.XL PO (10:28)
[2023-10-30] MEDS: Insulin U-500 UNITS/ML PEN 45 UNITS SC (11:39)
[2023-10-30 11:47] LABS: Bedside Glucose 111 mg/dL (74-106)
[2023-10-30] MEDS: 0.9% Normal Saline (1000mL) 1,000 ML 75 ML IV (16:19)
[2023-10-30] MEDS: oxyCODONE 5 MG Tablet PO (16:19)
[2023-10-30 16:42] LABS: Bedside Glucose 100 mg/dL (74-106)
--- NOTE | 2023-10-30 16:42 | PCM.PROGNOTE ---
Subjective Subjective Afebrile VSS Maintaining appropriate oxygen saturation on RA Oral intake - FOOD 100% FLUIDS good Weight is up 2 pounds today secondary to better hydration. The blood sugar record was reviewed and I communicated with Dr. Hilliard who will be able to download Flor's Dexcom so that she can adjust the insulin as needed. Discussed with nursing - no problems that need addressed Reviewed the THERAPY notes Medication list reviewed. She received 150 mg of Lyrica last night and did not complain of awakening with radicular pain in the left leg this morning. She is still complaining of dry mouth however I feel that this is most likely secondary to medication, especially high-dose Lyrica. Lyrica also likely contributes to increased appetite and weight gain. She denies chest pain, shortness of breath, night sweats, chills, dysuria. Hemoglobin is 10.5 today, down from 11.3 on 10/28/2023 but I suspect this is due to dilution from the intravenous fluids and not due to the acute blood loss. Sodium is 140 and the potassium is 4.0. The BUN is 31, down from 48 on 10/28/2023 and the creatinine is down to 1.18 from 1.89 on 10/28/2023. Objective Data Objective Data Vital Signs: Vital Signs Temp Pulse Resp BP Pulse Ox O2 Del Method 97.8 F 64 16 122/56 H 95 Room Air 10/30/23 08:51 10/30/23 10:14 10/30/23 08:51 10/30/23 08:51 10/30/23 08:51 10/30/23 08:51 Oxygen Delivery Method Room Air Weight: 344 lb 5.793 oz Body Mass Index (BMI) 55.3 Intake & Output: Intake and Output for Last 24 Hours 10/28/23 10/29/23 10/30/23 23:59 23:59 23:59 Intake Total 1600 / 1600 4840.00 / 4840.00 2860 / 2860 Output Total 3700 / 4300 3150 / 3150 Balance 1600 / 1600 1140.00 / 540.00 -290 / -290 Lab / Micro Data 10/30/23 05:41 10/30/23 05:41 Labs: Laboratory Results - last 24 hr 10/29/23 16:35: POC Glucose 71 L 10/29/23 20:59: POC Glucose 248 H 10/30/23 02:01: POC Glucose 97 10/30/23 05:41: Hgb 10.5 L, Hct 32.2 L, Sodium 140, Potassium 4.0, Chloride 106, Carbon Dioxide 29.0, Anion Gap 5, BUN 31 H, Creatinine 1.18 H, Estim Creat Clear Calc 76.21, Est GFR (MDRD) Af Amer 60, Est GFR (MDRD) Non-Af 49 L, BUN/Creatinine Ratio 26.3 H, Glucose 115 H, Calcium 9.1 10/30/23 06:20: POC Glucose 101 10/30/23 11:26: POC Glucose 111 H Physical Exam Const alert and no apparent distress Resp clear to auscultation bilaterally Cardio regular rate and regular rhythm Skin Wound Narrative: The incision was examined again today. We have been checking it daily. The incision is intact with no dehiscence. There is a very small amount of serosanguineous discharge on the bandage. No purulent discharge. No nonblanchable erythema in the sherif-incisional area. The cast on the stump is still tight and we do not need to add extra stockings. Bruising is fading. Psych affect normal Assessment & Plan Assessment/Plan (1) Physical debility: (2) History of right below knee amputation: (3) Charcot ankle: QUALIFIERS: Laterality: right Qualified Code(s): M14.671 - Charcot's joint, right ankle and foot (4) Acute blood loss anemia: (5) Diabetes mellitus, type 2: QUALIFIERS: Diabetes mellitus residential insulin use: with terminal computer operator use Diabetes mellitus complication status: with kidney complications Chronic kidney disease stage: stage 3 (moderate) Chronic kidney disease stage 3 subtype: stage 3a (GFR 45-59) (6) Chronic renal failure (CRF), stage 3a: (7) Depression: QUALIFIERS: Depression Type: reactive depression Qualified Code(s): F32.9 - Major depressive disorder, single episode, unspecified (8) Acute on chronic renal failure: QUALIFIERS: Acute renal failure type: unspecified Chronic kidney disease stage: stage 3 (moderate) Chronic kidney disease stage 3 subtype: stage 3a (GFR 45-59) Qualified Code(s): N17.9 - Acute kidney failure, unspecified; N18.31 - Chronic kidney disease, stage 3a PLAN: Due to IV volume depletion. Improving with hydration. Will continue fluids IV. she has increased her oral fluid intake. Creatinine on 10/30/2023 is back to baseline with hydration. PLAN: Plan 1. Continue therapy 2. Discontinue IV fluids after the current liter has infused. 3. Order a BMP and HH on Thursday 4. Decrease duloxetine to 30 mg daily. She is tolerating Wellbutrin XL with no adverse side effects. She had 2 bowel movements today and has been having a bowel movement daily since the second. Will continue stool softeners and Metamucil. Charges/Coding Visit Charges Inpatient E&M: 13085 Subs Hosp L1
[2023-10-30] MEDS: Atorvastatin Calcium 10 MG Tablet PO (21:33)
[2023-10-30] MEDS: Insulin U-500 UNITS/ML PEN 55 UNITS SC (21:34)
[2023-10-30 21:36] LABS: Bedside Glucose 248 mg/dL (74-106)
[2023-10-30] MEDS: Pregabalin 75 MG Capsule 150 MG PO (21:38)
[2023-10-30 22:00] VITALS: BP 108/51; PULSE 73; PULSE 74; RESP 17; TEMP 36.8; O2SAT 96
[2023-10-31] MEDS: Arthritis Pain Compound 60 CLICK TUBE TOPICAL ×3 (05:54→21:46)
[2023-10-31] MEDS: Levothyroxine 137 MCG Tablet PO (05:58)
[2023-10-31] MEDS: Enoxaparin 40 MG/0.4 ML Syringe SC (05:58)
[2023-10-31] MEDS: 0.9% Saline Lock 10 ML Syringe IV ×2 (06:02→21:51)
[2023-10-31 06:28] LABS: Bedside Glucose 184 mg/dL (74-106)
[2023-10-31] MEDS: Pregabalin 50 MG Capsule 100 MG PO ×2 (06:46→16:58)
[2023-10-31] MEDS: Lisinopril 20 MG Tablet PO (06:46)
[2023-10-31] MEDS: Insulin U-500 UNITS/ML PEN 145 UNITS SC (06:50)
[2023-10-31] MEDS: Insulin Lispro 100 UNIT/ML INSULN.PEN SC (08:03)
[2023-10-31] MEDS: Vitamin E 400 UNITS Capsule PO (08:04)
[2023-10-31] MEDS: Ferrous Sulfate 325 MG Tablet PO (08:04)
[2023-10-31] MEDS: Calcium (Elemental) 500 MG Tablet PO (08:04)
[2023-10-31] MEDS: Juven (unflavored) Packet 1 PACKET PO ×2 (08:04→16:58)
[2023-10-31] MEDS: Loratadine 10 MG Tablet PO (08:05)
[2023-10-31] MEDS: Cyanocobalamin 500 MCG Tablet 1000 MCG PO (08:05)
[2023-10-31] MEDS: Ascorbic Acid 500 MG Tablet 1000 MG PO (08:05)
[2023-10-31] MEDS: Multivitamins,Therapeutic Tablet 1 TABLET PO (08:05)
[2023-10-31] MEDS: DULoxetine Hcl 30 MG Capsule PO (08:06)
[2023-10-31] MEDS: Aspirin E.C. 81 MG Tablet PO (08:07)
[2023-10-31] MEDS: Pantoprazole Sodium 40 MG Tablet PO (08:07)
[2023-10-31] MEDS: Nystatin Powder 15gm Bottle 1 APPLIC TOPICAL ×2 (08:08→21:47)
[2023-10-31 08:11] VITALS: BP 119/51; PULSE 67
[2023-10-31] MEDS: Metoprolol(XL)Succ 100 MG Tablet PO (08:11)
[2023-10-31] MEDS: buPROPion (XL) 150 MG TABLET.XL PO (08:14)
[2023-10-31] MEDS: Psyllium 1 PACKET 2 PACKET PO (08:20)
[2023-10-31 09:55] VITALS: BP 119/51; PULSE 67; RESP 16; TEMP 36.6; O2SAT 94
[2023-10-31 12:01] LABS: Bedside Glucose 95 mg/dL (74-106)
[2023-10-31] MEDS: Insulin U-500 UNITS/ML PEN 45 UNITS SC (12:02)
[2023-10-31 17:11] LABS: Bedside Glucose 88 mg/dL (74-106)
[2023-10-31 20:00] VITALS: BP 149/70; PULSE 75; RESP 18; TEMP 36.6; O2SAT 96
[2023-10-31 21:38] LABS: Bedside Glucose 255 mg/dL (74-106)
[2023-10-31] MEDS: Insulin U-500 UNITS/ML PEN 55 UNITS SC (21:45)
[2023-10-31] MEDS: Pregabalin 75 MG Capsule 150 MG PO (21:47)
[2023-10-31] MEDS: Senna/Docusate Sodium 1 Tablet 2 TABLET PO (21:47)
[2023-10-31] MEDS: Atorvastatin Calcium 10 MG Tablet PO (21:47)
[2023-11-01] MEDS: Enoxaparin 40 MG/0.4 ML Syringe SC (06:15)
[2023-11-01] MEDS: Levothyroxine 137 MCG Tablet PO (06:15)
[2023-11-01] MEDS: Arthritis Pain Compound 60 CLICK TUBE TOPICAL ×3 (06:15→21:27)
[2023-11-01] MEDS: Pregabalin 50 MG Capsule 100 MG PO ×2 (06:59→16:19)
[2023-11-01] MEDS: Lisinopril 20 MG Tablet PO (07:00)
[2023-11-01] MEDS: Insulin U-500 UNITS/ML PEN 145 UNITS SC (07:00)
[2023-11-01] MEDS: Insulin Lispro 100 UNIT/ML INSULN.PEN SC (07:02)
[2023-11-01 07:27] LABS: Bedside Glucose 184 mg/dL (74-106)
[2023-11-01] MEDS: Ascorbic Acid 500 MG Tablet 1000 MG PO (07:59)
[2023-11-01] MEDS: Multivitamins,Therapeutic Tablet 1 TABLET PO (07:59)
[2023-11-01] MEDS: Juven (unflavored) Packet 1 PACKET PO ×2 (07:59→16:03)
[2023-11-01] MEDS: Cyanocobalamin 500 MCG Tablet 1000 MCG PO (07:59)
[2023-11-01] MEDS: DULoxetine Hcl 30 MG Capsule PO (07:59)
[2023-11-01] MEDS: Senna/Docusate Sodium 1 Tablet 2 TABLET PO (07:59)
[2023-11-01] MEDS: Calcium (Elemental) 500 MG Tablet PO (08:00)
[2023-11-01] MEDS: Loratadine 10 MG Tablet PO (08:00)
[2023-11-01] MEDS: Ferrous Sulfate 325 MG Tablet PO (08:00)
[2023-11-01] MEDS: Vitamin E 400 UNITS Capsule PO (08:00)
[2023-11-01] MEDS: buPROPion (XL) 150 MG TABLET.XL PO (08:00)
[2023-11-01] MEDS: Pantoprazole Sodium 40 MG Tablet PO (08:01)
[2023-11-01] MEDS: Aspirin E.C. 81 MG Tablet PO (08:01)
[2023-11-01 08:02] VITALS: PULSE 66
[2023-11-01] MEDS: Psyllium 1 PACKET 2 PACKET PO (08:02)
[2023-11-01] MEDS: Nystatin Powder 15gm Bottle 1 APPLIC TOPICAL (08:02)
[2023-11-01] MEDS: Metoprolol(XL)Succ 100 MG Tablet PO (08:02)
[2023-11-01 08:39] VITALS: BP 132/52; PULSE 66; RESP 16; TEMP 36.6; O2SAT 97
[2023-11-01] MEDS: Insulin U-500 UNITS/ML PEN 45 UNITS SC (12:01)
[2023-11-01 12:27] LABS: Bedside Glucose 93 mg/dL (74-106)
[2023-11-01 16:57] LABS: Bedside Glucose 82 mg/dL (74-106)
[2023-11-01 19:00] VITALS: BP 133/57; PULSE 68; RESP 18; TEMP 36.4; O2SAT 96
[2023-11-01] MEDS: Atorvastatin Calcium 10 MG Tablet PO (21:28)
[2023-11-01] MEDS: Pregabalin 75 MG Capsule 150 MG PO (21:30)
[2023-11-01] MEDS: 0.9% Saline Lock 10 ML Syringe IV (21:36)
[2023-11-01] MEDS: Insulin U-500 UNITS/ML PEN 55 UNITS SC (21:55)
[2023-11-01 22:27] LABS: Bedside Glucose 161 mg/dL (74-106)
[2023-11-02 05:44] LABS: Hematocrit 34.2 % (37-47); Hemoglobin 11.4 g/dL (12.0-15.0); Mean Corp Hgb Conc 33.3 g/dL (32-36); Mean Corpuscular Hgb 32.1 pg (27.0-32.0); Mean Corpuscular Volume 96.3 fL (81-99); Mean Platelet Vol. 9.7 fl (6.2-12.0); Platelet Count 219 K/mm3 (150-450); RBC Distribution Width CV 13.8 % (11.6-14.6); RBC Distribution Width SD 49.1 fl (35.1-43.9); Red Blood Count 3.55 M/mm3 (4.2-5.4); White Blood Count 7.4 K/mm3 (4.4-11.0)
[2023-11-02 06:19] LABS: Anion Gap 6 (5-15); BUN 42 mg/dL (7-18); BUN/Creat Ratio 22.3 RATIO (10-20); Calcium,Total 9.2 mg/dL (8.5-10.1); Chloride 103 mmol/L (98-107); Creatinine, Serum 1.88 mg/dL (0.55-1.02); EST Glomerular Filtration Rate 29 mL/min (>60); Est Glom Filt Rate - Afr Amer 35 mL/min (>60); Estimated Creatinine Clearance 48.03 ml/min; Glucose 189 mg/dL (74-106); Potassium 4.4 mmol/L (3.5-5.1); Sodium Level 137 mmol/L (136-145)
[2023-11-02] MEDS: Arthritis Pain Compound 60 CLICK TUBE TOPICAL ×3 (06:47→22:11)
[2023-11-02] MEDS: Enoxaparin 40 MG/0.4 ML Syringe SC (06:47)
[2023-11-02] MEDS: Lisinopril 20 MG Tablet PO (06:49)
[2023-11-02] MEDS: Pregabalin 50 MG Capsule 100 MG PO ×2 (06:49→16:45)
[2023-11-02] MEDS: Insulin Lispro 100 UNIT/ML INSULN.PEN SC (06:49)
[2023-11-02] MEDS: Levothyroxine 137 MCG Tablet PO (06:49)
[2023-11-02] MEDS: Insulin U-500 UNITS/ML PEN 145 UNITS SC (06:50)
[2023-11-02 07:22] LABS: Bedside Glucose 195 mg/dL (74-106)
[2023-11-02] MEDS: Cyanocobalamin 500 MCG Tablet 1000 MCG PO (08:08)
[2023-11-02] MEDS: Juven (unflavored) Packet 1 PACKET PO ×2 (08:08→16:46)
[2023-11-02] MEDS: Ferrous Sulfate 325 MG Tablet PO (08:09)
[2023-11-02] MEDS: Calcium (Elemental) 500 MG Tablet PO (08:09)
[2023-11-02] MEDS: Pantoprazole Sodium 40 MG Tablet PO (08:09)
[2023-11-02] MEDS: Vitamin E 400 UNITS Capsule PO (08:09)
[2023-11-02] MEDS: Multivitamins,Therapeutic Tablet 1 TABLET PO (08:09)
[2023-11-02] MEDS: Ascorbic Acid 500 MG Tablet 1000 MG PO (08:09)
[2023-11-02 08:17] VITALS: BP 120/62; PULSE 67; RESP 18; TEMP 36.2; O2SAT 95
[2023-11-02] MEDS: Psyllium 1 PACKET 2 PACKET PO (10:01)
[2023-11-02] MEDS: Loratadine 10 MG Tablet PO (10:01)
[2023-11-02] MEDS: Senna/Docusate Sodium 1 Tablet 2 TABLET PO ×2 (10:01→22:16)
[2023-11-02 10:02] VITALS: PULSE 67
[2023-11-02] MEDS: Metoprolol(XL)Succ 100 MG Tablet PO (10:02)
[2023-11-02] MEDS: DULoxetine Hcl 30 MG Capsule PO (10:02)
[2023-11-02] MEDS: Aspirin E.C. 81 MG Tablet PO (10:03)
[2023-11-02] MEDS: buPROPion (XL) 150 MG TABLET.XL PO (10:04)
[2023-11-02] MEDS: Nystatin Powder 15gm Bottle 1 APPLIC TOPICAL ×2 (10:04→22:15)
[2023-11-02 11:13] LABS: Bedside Glucose 177 mg/dL (74-106)
[2023-11-02] MEDS: Insulin U-500 UNITS/ML PEN 45 UNITS SC (11:54)
--- NOTE | 2023-11-02 13:34 | CASEMGMT ---
Social Work IDT met with patient at bedside to complete care plan. Discussed progress with therapy (PT/OT). SW informed patient of [employer] [facility] [employer] insurance NRD 11/08. SW discussed concerns for lack of supervision and physical support in the home due to working during the day. Patient inquired about home health and personal care provider. Patient was provided information regarding private duty care. SW discussed alternative transitional care plan for custodial facility. Patient informed SW that she is open to discussing custodial home placement. Dr. Simon spoke with patient regarding FMLA and providing care. Patient informed team that she will discuss potential level of care required with her . Patient inquired about mental health resources. SW will continue to follow to assist patient with transition of care plans. MANJEET Kang
--- NOTE | 2023-11-02 15:59 | PN_ITS ---
Subjective Subjective Flor was seen on team rounds today. No family was available to participate. Afebrile VSS Maintaining appropriate oxygen saturation on RA. Compliant with CPAP at night. Oral intake - FOOD very good FLUIDS good The blood sugar record was reviewed. All blood sugars for the past 24 hours have been less than 200 with no hypoglycemia. She is currently getting 145 units of U-500 in the a.m., 45 units with lunch and 60 units at at bedtime. Discussed with nursing - no problems that need addressed. She is min assist X1 with nursing for toilet transfer. Needing Max assist for toileting for hygiene thoroughness and for donning pants over over hips. Reviewed the THERAPY notes - brought in her knee scooter. Pt had been straddling the scooter prior to the BKA but now is not able to maintain balance and is at risk for falls with use of the scooter. Medication list reviewed. Ozempic could not be started because she has a 2 mg pen and the dose written for by Dr. Hilliard is 0.[address] Hilliard will write a new prescription at discharge. Elisabet denies lightheadedness, chest pain, palpitations, shortness of breath at rest, nausea/vomiting/abdominal pain, dysuria, calf pain and constipation. Elisabet tells me with the increase in Lyrica to 150 mg at at bedtime the neuropathic pain in the left lower extremity has resolved. She denies pain in her hands as well. She is sleeping well at night and tolerating the Wellbutrin with no cephalgia. She continues to complain of dry mouth but I suspect this is due to the Lyrica because she had it prior to Wellbutrin being started. All lab from today was personally reviewed. Hemoglobin is 11.4 and stable. The white blood cell count is normal and sore the platelets. Creatinine was 1.18 following hydration with IV normal saline on 10/30/2023 but today is back up to 1.88 with a BUN of 42. Oral intake of fluids yesterday was 3590 but she had 5650 out for a fluid balance of -2015. Sodium is normal at 137 and the potassium is 4 4. Objective Data Objective Data Vital Signs: Vital Signs Temp Pulse Resp BP Pulse Ox O2 Del Method 97.1 F L 67 18 120/62 95 Room Air 11/02/23 08:17 11/02/23 10:02 11/02/23 08:17 11/02/23 08:17 11/02/23 08:17 11/02/23 08:17 Oxygen Delivery Method Room Air Weight: 344 lb 5.793 oz Body Mass Index (BMI) 55.3 Intake & Output: Intake and Output for Last 24 Hours 10/31/23 11/01/23 11/02/23 23:59 23:59 23:59 Intake Total 4790 / 4790 3590 / 3590 1320 / 1320 Output Total 4860 / 4860 5650 / 5650 2350 / 2350 Balance -70 / -70 -2060 / -2060 -1030 / -1030 Lab / Micro Data 11/02/23 05:29 11/02/23 05:29 Labs: Laboratory Results - last 24 hr 11/01/23 16:37: POC Glucose 82 11/01/23 21:52: POC Glucose 161 H 11/02/23 05:29: WBC 7.4, RBC 3.55 L, Hgb 11.4 L, Hct 34.2 L, MCV 96.3, MCH 32.1 H, MCHC 33.3, RDW Std Deviation 49.1 H, RDW Coeff of Roland 13.8, Plt Count 219, MPV 9.7, Sodium 137, Potassium 4.4, Chloride 103, Carbon Dioxide 28.0, Anion Gap 6, BUN 42 H, Creatinine 1.88 H, Estim Creat Clear Calc 48.03, Est GFR (MDRD) Af Amer 35 L, Est GFR (MDRD) Non-Af 29 L, BUN/Creatinine Ratio 22.3 H, Glucose 189 H, Calcium 9.2 11/02/23 06:46: POC Glucose 195 H 11/02/23 10:53: POC Glucose 177 H Physical Exam Const alert, oriented x3 and no apparent distress Constitutional Narrative: Very motivated to get better and heal so that she can be fitted with a prosthesis and start walking again. General Appearance: cooperative Nutritional Appearance: morbidly obese HEENT moist oral mucous membranes Mouth: dry mucous membranes Eyes PERRL, EOMs intact bilaterally, conjunctivae normal and no scleral icterus Neck no lymphadenopathy, supple, no JVD and no carotid bruits Neck Narrative: short thick neck Chest Chest: symmetrical chest wall rise Resp normal respiratory effort and clear to auscultation bilaterally Resp Narrative: Not tachypneic and no conversational dyspnea. Dimished BS throughout......may be related to body habitus Effort and Inspection: Negative for tachypneic, respiratory distress or labored Auscultation: diminished lung sounds Cardio regular rate, regular rhythm and no gallops Cardio Narrative: Heart sounds are distant. GI normal to inspection, nondistended, normoactive bowel sounds, soft to palpation and non-tender GI Narrative: No guarding with palpation. Morbidly obese, Extremity no calf tenderness Extremity Narrative: the incision is intact with no dehiscence. There is no non-blanchable erythema and there is no purulent DC. The lateral end of the incision is a little mushy.....possible hematoma? No ankle edema on the left. The crease behind the knee feels better since we started padding it yesterday. General Extremity: Negative for edema Skin no jaundice Skin Narrative: No rashes, no skin breakdown. See extremity exam fo description of the R BKA incision. Rashes: no rashes Wound Narrative: The BKA incision is intact with a scant amount of serosanguineous discharge on the dressing. No sherif-incisional erythema and no purulent discharge from the incision. There is increased redness in the crease behind the knee secondary to the branch rental manager sock rolling down and rubbing in the crease. No openings in the skin behind the knee. Neuro oriented x3, CN's II-XII intact bilaterally and no focal motor deficits Neuro Narrative: Decreased sensation in the hands and distal LLE. Psych thought process normal and cooperative Psych Narrative: Admits to being anxious about being able to take care of herself at [place] so that she is not a burden to her . Sleeping well at night. Good appetite. Appearance: appropriate Attitude: calm and engaged Thought Content: normal thought content Attention / Concentration: attention grossly intact Memory / Cognition: memory grossly intact Assessment & Plan Assessment/Plan (1) Physical debility: (2) History of right below knee amputation: (3) Charcot ankle: QUALIFIERS: Laterality: right Qualified Code(s): M14.671 - Charcot's joint, right ankle and foot (4) Acute blood loss anemia: (5) Diabetes mellitus, type 2: QUALIFIERS: Diabetes mellitus keno terminal operator insulin use: with correction use Diabetes mellitus complication status: with kidney complications Chronic kidney disease stage: stage 3 (moderate) Chronic kidney disease stage 3 subtype: stage 3a (GFR 45-59) (6) Chronic renal failure (CRF), stage 3a: (7) Depression: QUALIFIERS: Depression Type: reactive depression Qualified Code(s): F32.9 - Major depressive disorder, single episode, unspecified (8) Acute on chronic renal failure: QUALIFIERS: Acute renal failure type: unspecified Chronic kidney disease stage: stage 3 (moderate) Chronic kidney disease stage 3 subtype: stage 3a (GFR 45-59) Qualified Code(s): N17.9 - Acute kidney failure, unspecified; N18.31 - Chronic kidney disease, stage 3a PLAN: Plan 1. Continue therapy 2. Appreciate Dr. Hilliard managing the insulin and BS's are coming under better control. 3. Creat is back up to 1.88. the last creat we have on Elisabet prior to this admission was 0.92. that was 6 years ago. Things could have changed since then. Will ask for her HGBA1C's, BMP's and lipid panels for the past 2-[address] Corona. 4. Check the urine for protein/creatinine ratio. Recent UA showed no protein in the urine. 5. Consider an ultrasound or CT abdomen to assess kidney size. 6. Recheck a BMP tomorrow. Hydrochlorothiazide was discontinued last week. She had been on Lasix in the past for LE edema. She has no edema in the left ankle today off HCTZ. Output is exceeding input for fluids.
[2023-11-02] MEDS: 0.9% Saline Lock 10 ML Syringe IV (16:46)
[2023-11-02 16:56] LABS: Bedside Glucose 76 mg/dL (74-106)
[2023-11-02 18:18] LABS: Hemoglobin A1c 7.1 % (3.8-5.6)
[2023-11-02 19:40] VITALS: BP 137/57; PULSE 100; RESP 17; TEMP 37; O2SAT 98
[2023-11-02 21:56] LABS: Protein, Urine (Random) < 6.0 mg/dL (<11.9)
[2023-11-02 22:00] VITALS: PULSE 104; RESP 17; O2SAT 98
[2023-11-02 22:06] LABS: Bedside Glucose 158 mg/dL (74-106)
[2023-11-02] MEDS: Insulin U-500 UNITS/ML PEN 60 UNITS SC (22:12)
[2023-11-02] MEDS: Atorvastatin Calcium 10 MG Tablet PO (22:14)
[2023-11-02] MEDS: Pregabalin 75 MG Capsule 150 MG PO (22:20)
[2023-11-03 06:28] LABS: Anion Gap 7 (5-15); BUN 50 mg/dL (7-18); BUN/Creat Ratio 26.5 RATIO (10-20); Calcium,Total 9.1 mg/dL (8.5-10.1); Chloride 102 mmol/L (98-107); Creatinine, Serum 1.89 mg/dL (0.55-1.02); EST Glomerular Filtration Rate 29 mL/min (>60); Est Glom Filt Rate - Afr Amer 35 mL/min (>60); Estimated Creatinine Clearance 47.78 ml/min; Glucose 111 mg/dL (74-106); Potassium 4.3 mmol/L (3.5-5.1); Sodium Level 136 mmol/L (136-145)
[2023-11-03] MEDS: Enoxaparin 40 MG/0.4 ML Syringe SC (06:40)
[2023-11-03] MEDS: Levothyroxine 137 MCG Tablet PO (06:40)
[2023-11-03] MEDS: Arthritis Pain Compound 60 CLICK TUBE TOPICAL ×3 (06:40→21:25)
[2023-11-03] MEDS: Insulin U-500 UNITS/ML PEN 145 UNITS SC (06:50)
[2023-11-03] MEDS: Lisinopril 20 MG Tablet PO (07:02)
[2023-11-03] MEDS: Pregabalin 50 MG Capsule 100 MG PO ×2 (07:02→16:29)
[2023-11-03 07:04] LABS: Bedside Glucose 88 mg/dL (74-106)
[2023-11-03 07:11] LABS: Bedside Glucose 149 mg/dL (74-106)
[2023-11-03] MEDS: Calcium (Elemental) 500 MG Tablet PO (08:09)
[2023-11-03] MEDS: Juven (unflavored) Packet 1 PACKET PO ×2 (08:09→16:32)
[2023-11-03 08:10] VITALS: PULSE 69
[2023-11-03] MEDS: Ascorbic Acid 500 MG Tablet 1000 MG PO (08:10)
[2023-11-03] MEDS: Aspirin E.C. 81 MG Tablet PO (08:10)
[2023-11-03] MEDS: Loratadine 10 MG Tablet PO (08:10)
[2023-11-03] MEDS: Cyanocobalamin 500 MCG Tablet 1000 MCG PO (08:10)
[2023-11-03] MEDS: Ferrous Sulfate 325 MG Tablet PO (08:10)
[2023-11-03] MEDS: Multivitamins,Therapeutic Tablet 1 TABLET PO (08:10)
[2023-11-03] MEDS: DULoxetine Hcl 30 MG Capsule PO (08:10)
[2023-11-03] MEDS: Metoprolol(XL)Succ 100 MG Tablet PO (08:10)
[2023-11-03] MEDS: Pantoprazole Sodium 40 MG Tablet PO (08:10)
[2023-11-03] MEDS: Senna/Docusate Sodium 1 Tablet 2 TABLET PO (08:11)
[2023-11-03] MEDS: Vitamin E 400 UNITS Capsule PO (08:12)
[2023-11-03] MEDS: Psyllium 1 PACKET 2 PACKET PO (08:13)
[2023-11-03] MEDS: buPROPion (XL) 150 MG TABLET.XL PO (08:13)
[2023-11-03] MEDS: Nystatin Powder 15gm Bottle 1 APPLIC TOPICAL (08:13)
--- NOTE | 2023-11-03 08:23 | PCM.PROGNOTE ---
Subjective Subjective Afebrile VSS Maintaining appropriate oxygen saturation on RA Oral intake - FOOD good FLUIDS good Total oral fluid intake yesterday was 3120 and she had 4100 cc out for a fluid balance of -980. Overnight she had 350 cc in but 2450 out for fluid balance of -2100. The blood sugar record was reviewed. Blood sugars have come under much better control. No blood sugars less than 70 over the past 24 hours. Discussed with nursing - no problems that need addressed Reviewed the THERAPY notes Medication list reviewed. Fractional excretion of sodium yesterday was 1.9%. Urine protein was less than 6. Hemoglobin A1c was 7.1%. Calcium is within normal limits. BMP today shows a normal sodium at 136 with a potassium of 4.3. BUN is 50 and the creatinine is 1.89. I reviewed the lab we got from [facility] and the last creat they had was in April of 2022 and it was 1.1. I went back and reviewed all the lab done at previous hospital and she had 2 creat's.......on 10/19 it was 0.95 and on 10/20 it was 1.1. She was transferred to rehab on 10/23/2023 and creatinine at that time was 1.25. On 10/28/2023 it went up to 1.89 and with hydration came down to 1.18 but as soon as the IV fluids were stopped creatinine went back up to 1.88. Fractional excretion of sodium is indeterminate at 1.9%. She does not have proteinuria. No RBC's. No hyaline casts. She was on losartan/hydrochlorothiazide at admission to rehab and was transitioned to lisinopril for elevated blood pressure. Her only other new medication is Wellbutrin. She has no rashes. No WBC's in the urine. Denies flank pain and she has no hematuria. To her knowledge she did not have any XRAYs with contrast. Objective Data Objective Data Vital Signs: Vital Signs Temp Pulse Resp BP Pulse Ox O2 Del Method 98.6 F 69 17 137/57 H 98 Room Air 11/02/23 19:40 11/03/23 08:10 11/02/23 22:00 11/02/23 19:40 11/02/23 22:00 11/02/23 22:00 Oxygen Delivery Method Room Air Weight: 344 lb 5.793 oz Body Mass Index (BMI) 55.3 Intake & Output: Intake and Output for Last 24 Hours 11/01/23 11/02/23 11/03/23 23:59 23:59 23:59 Intake Total 3590 / 3590 3120 / 3120 350 / 350 Output Total 5650 / 5650 4100 / 4100 2450 / 2450 Balance -2060 / -2060 -980 / -980 -2100 / -2100 Lab / Micro Data 11/02/23 05:29 11/03/23 05:32 Labs: Laboratory Results - last 24 hr 11/02/23 05:29: Hemoglobin A1c 7.1 H 11/02/23 10:53: POC Glucose 177 H 11/02/23 16:38: POC Glucose 76 11/02/23 21:20: U Random Total Protein < 6.0, Urine Creatinine 29.90, Protein/Creatinin Ratio TNP 11/02/23 21:48: POC Glucose 158 H 11/03/23 03:19: POC Glucose 88 11/03/23 05:32: Sodium 136, Potassium 4.3, Chloride 102, Carbon Dioxide 27.0, Anion Gap 7, BUN 50 H, Creatinine 1.89 H, Estim Creat Clear Calc 47.78, Est GFR (MDRD) Af Amer 35 L, Est GFR (MDRD) Non-Af 29 L, BUN/Creatinine Ratio 26.5 H, Glucose 111 H, Calcium 9.1 11/03/23 06:48: POC Glucose 149 H Physical Exam Const alert, oriented x3 and no apparent distress General Appearance: cooperative HEENT HEENT Narrative: I suspect the MM are dry due to high dose Lyrica and Wellbutrin. Mouth: dry mucous membranes Resp clear to auscultation bilaterally Auscultation: diminished lung sounds Cardio regular rate and regular rhythm GI normal to inspection, nondistended, normoactive bowel sounds, soft to palpation and non-tender GI Narrative: ? abd hernia in the R mid abd. Has been there at least 10 years. Extremity no calf tenderness Extremity Narrative: no significant peripheral edema. Skin Rashes: no rashes Assessment & Plan Assessment/Plan (1) Physical debility: (2) History of right below knee amputation: (3) Charcot ankle: QUALIFIERS: Laterality: right Qualified Code(s): M14.671 - Charcot's joint, right ankle and foot (4) Acute blood loss anemia: (5) Diabetes mellitus, type 2: QUALIFIERS: Diabetes mellitus senior care insulin use: with senior care use Diabetes mellitus complication status: with kidney complications Chronic kidney disease stage: stage 3 (moderate) Chronic kidney disease stage 3 subtype: stage 3a (GFR 45-59) (6) Chronic renal failure (CRF), stage 3a: (7) Depression: QUALIFIERS: Depression Type: reactive depression Qualified Code(s): F32.9 - Major depressive disorder, single episode, unspecified (8) Acute on chronic renal failure: QUALIFIERS: Acute renal failure type: unspecified Chronic kidney disease stage: stage 3 (moderate) Chronic kidney disease stage 3 subtype: stage 3a (GFR 45-59) Qualified Code(s): N17.9 - Acute kidney failure, unspecified; N18.31 - Chronic kidney disease, stage 3a PLAN: Unknown etiology. Doubt related to Lisinopril because the creat had gone up prior to starting Lisinopril and she was on an ARB prior to the Lisinopril. The only days she has not been in negative fluid balance is when we have given IV fluids. HCTZ was discontinued last week. Today so far she has had 1510 in and 3050 out? PLAN: Plan 1. Continue therapy 2. CT scan of the abd and pelvis to r/o obstructive uropathy and look at kidney size. She has a hx of nephrolithiasis but, she has no flank pain. 3. If the CT of the abd is unremarkable will start IV fluids again and consider a nephrology consult. BS's are better controlled and she should not still be having polyuria from hyperglycemia. Doubt DI since serum sodium is normal. 4. BP is mildly elevated at times. Consider increasing Metoprolol or adding Amlodipine to the drug regimen. Spent 35 minutes in the care of this patient examining, discussing todays labs and possible etiologies of renal failure and reviewing all the paperwork from the previous hospital and from [facility] and [facility]. Charges/Coding Visit Charges Inpatient E&M: 22792 Subs Hosp L2
[2023-11-03 08:41] VITALS: BP 155/76; PULSE 69; RESP 16; TEMP 36.6; O2SAT 96
[2023-11-03 11:25] LABS: Bedside Glucose 191 mg/dL (74-106)
[2023-11-03] MEDS: Insulin Lispro 100 UNIT/ML INSULN.PEN SC (11:50)
[2023-11-03] MEDS: Insulin U-500 UNITS/ML PEN 45 UNITS SC (11:50)
--- NOTE | 2023-11-03 13:04 | CT_ITS ---
STUDY: CT ABDOMEN AND PELVIS WITHOUT CONTRAST REASON FOR EXAM: Female, 63 years old. Acute on chronic renal failure RADIATION DOSAGE (If Supplied By Facility): CTDIvol = ( 34.17 ) mGy, DLP = ( 1809.63 ) mGycm TECHNIQUE: Transaxial images were obtained from the dome of the diaphragm to the symphysis pubis without oral contrast, and without intravenous contrast. Sagittal and coronal images were reconstructed. Individualized dose optimization techniques were used for this CT. COMPARISON: None. FINDINGS: There is a 2.4 cm x 2.1 cm mass in the inferior aspect of the right breast. Correlation with a mammogram recommended. The visualized lung bases are unremarkable. Coronary artery calcification. Hepatomegaly. The patient is status post cholecystectomy. Normal spleen. Normal pancreas. Normal bilateral adrenal glands. Normal right kidney. Mild degree of left hydronephrosis and left hydroureter due to a 7.1 mm x 9.6 mm calculus in the distal one third of the left ureter. There is a 2 mm nonobstructive calculus in the lower pole calyx of the left kidney. Normal visualized stomach. Normal small intestine. Normal colon. The appendix is visualized and appears normal. There is scattered atherosclerotic calcification of the abdominal aorta, without a demonstrated aneurysm. Normal inferior vena cava. There is retroperitoneal lymphadenopathy with enlarged nodes no greater than 10mm in the short axis diameter. The urinary bladder is empty at the time of the examination. Normal abdominal wall. Disc space narrowing and degeneration at the L4-L5 and L5-S1 levels. CT/Abdomen/Pelvis without Cont IMPRESSION: Mild degree of left hydronephrosis and left hydroureter due to a 7.1 mm x 9.6 mm calculus in the distal one third of the left ureter. Nonobstructive 2 mm calculus in the lower pole calyx of the left kidney. Normal bilateral renal size. The patient is status post cholecystectomy. Electronically Signed: Michele Gilliland MD at 14:08 EDT ,
[2023-11-03] MEDS: 0.9% Normal Saline (1000mL) 1,000 ML 100 ML IV ×2 (15:08→16:29)
[2023-11-03] MEDS: 0.9% Saline Lock 10 ML Syringe IV (15:08)
--- NOTE | 2023-11-03 16:33 | PCM.CONS.GEN ---
Assessment & Plan Assessment/Plan (1) Ureteral calculus: (2) Hydronephrosis: QUALIFIERS: Hydronephrosis type: with ureteral calculous obstruction Qualified Code(s): N13.2 - Hydronephrosis with renal and ureteral calculous obstruction (3) Acute on chronic renal failure: QUALIFIERS: Acute renal failure type: unspecified Chronic kidney disease stage: stage 3 (moderate) Chronic kidney disease stage 3 subtype: stage 3a (GFR 45-59) Qualified Code(s): N17.9 - Acute kidney failure, unspecified; N18.31 - Chronic kidney disease, stage 3a PLAN: Plan Continue hydration and supportive care Plan for surgical intervention on Risks, benefits and alternatives were discussed with the patient. Given the fact that her creatinine is already elevated and the stone is large, she would like to proceed with surgical intervention. I will schedule her for cystoscopy, left ureteroscopy with holmium laser lithotripsy, stone basket extraction and left ureteral stent insertion. HPI Consult Data Date of Consult: 11/03/23 HPI Narrative Reason for Consultation: left ureteral stone HPI Narrative: KACY KEEN, is a 63 F who is admitted here after a right BKA. She was found to have an elevation of the creatinine and imaging identified a left mid ureteral calculus. She denies increasing flank pain but has had some left lower back pain that is increasing above her baseline. There is no nausea, vomiting, fever or chills. She did have 1 stone in the past approximately 10 years ago that she was able to pass on her own without surgical intervention. She does report a history of voiding dysfunction but reports she has been voiding every 2-3 hours here in the rehab facility without dysuria, hematuria. [facility]LY [facility] Medical History (Updated 11/03/23 @ 21:[address] Marga Mata MD) Adenocarcinoma of endometrium Anemia Benign essential HTN Bilateral carpal tunnel syndrome Charcot ankle Chronic pain Chronic renal failure (CRF), stage 3a CPAP (continuous positive airway pressure) dependence Diabetes mellitus, type 2 Diverticulosis External hemorrhoid Fatty liver GERD without esophagitis Hx of supraventricular tachycardia Hydronephrosis Hyperlipidemia Low vitamin B12 level Morbid obesity with BMI of 50.0-59.9, adult Multinodular goiter Nephrolithiasis BRITT (obstructive sleep apnea) Pulmonary hypertension Rheumatoid arthritis Rosacea Thyromegaly Tubular adenoma Ureteral calculus Home Medications aspirin 81 mg tablet,delayed release 81 mg PO DAILY Heart health 01/11/16 [History Last Taken 07/03/17] cetirizine 10 mg capsule 10 mg PO DAILY Allergies 01/11/16 [History Last Taken Unknown] losartan 100 mg-hydrochlorothiazide 25 mg tablet 1 tab PO DAILY BP 01/11/16 [History Last Taken 07/03/17] metoprolol succinate 100 mg tablet,extended release 24 hr 100 mg PO DAILY BP 01/11/16 [History Last Taken 07/03/17] multivitamin 1 ea PO DAILY Supplement 01/11/16 [History Last Taken Unknown] omeprazole 40 mg capsule,delayed release 40 mg PO DAILY GERD 01/11/16 [History Last Taken 07/03/17] simvastatin 20 mg tablet 20 mg PO QHS Cholestrol 01/11/16 [History Last Taken Unknown] cyanocobalamin (vitamin B-12) 1,000 mcg sublingual tablet 1,000 mcg PO DAILY Supplement 07/02/17 [History Last Taken Unknown] etanercept 50 mg/mL (1 mL) subcutaneous syringe (Enbrel) 50 mg subcut QWEEK Ask dr 04/28/18 [History Last Taken Unknown] hydroxychloroquine 200 mg tablet (Plaquenil) 200 mg PO BID Platelets 04/28/18 [History Last Taken Unknown] duloxetine 60 mg capsule,delayed release 30 mg PO QHS Nerve pain 06/14/18 [History Last Taken Unknown] pregabalin 150 mg capsule (Lyrica) 150 mg PO QHS Nerve pain 06/14/18 [History Last Taken Unknown] insulin regular hum U-500 conc 500 unit/mL(3 mL) subcut pen 150 unit subcut DAILY Blood sugar 30 days #30 mL 06/28/18 [History Last Taken Unknown] ferrous sulfate 325 mg (65 mg iron) tablet (Feosol) 325 mg PO DAILY supplement 04/25/20 [History Last Taken Unknown] levothyroxine 175 mcg capsule 137 mcg PO DAILY Thyroid 04/25/20 [History Last Taken Unknown] Allergy/AdvReac Type Severity Reaction Status Date / Time No Known Allergies Allergy Verified 04/25/20 13:35 Family History Mother Ovarian cancer Hypertension Arthritis Uterine cancer Fibrocystic disease of breast Hypothyroid Father , Age 86-CHF Hypertension Arthritis Diverticulitis of colon Depression CAD (coronary artery disease) Sister Hypertension Depression CVA (cerebral vascular accident) Fibrocystic disease of breast Diabetes Bleeding disorder Portal hypertension Surgical History H/O abdominal hysterectomy H/O cardiac radiofrequency ablation (02/15/13) H/O carpal tunnel repair H/O colonoscopy History of hand surgery History of right and left heart catheterization (07/03/17) History of right below knee amputation History of tonsillectomy Hx of cholecystectomy Previous section Surgical menopause Social History Smoking Status: Never smoker second hand exposure: No alcohol intake: never substance use type: does not use caffeine: No ROS Constitutional Constitutional: Denies chills, fatigue or fever(s) Eyes Eyes: Reports systems reviewed and no addt'l complaints, except as documented ENT HEENT: Reports systems reviewed and no addt'l complaints, except as documented Cardiovascular Cardiovascular: Reports systems reviewed and no addt'l complaints, except as documented Respiratory/Chest Respiratory/Chest: Reports systems reviewed and no addt'l complaints, except as documented Gastrointestinal Gastrointestinal: Denies abdominal pain, nausea or vomiting Genitourinary Genitourinary: Reports low back pain; Denies dysuria, flank pain, hematuria, urinary frequency or urinary urgency Musculoskeletal Musculoskeletal: Reports systems reviewed and no addt'l complaints, except as documented Integumentary Integumentary: Reports systems reviewed and no addt'l complaints, except as documented Neurologic Neurologic: Reports systems reviewed and no addt'l complaints, except as documented Psychiatric Psychiatric: Reports systems reviewed and no addt'l complaints, except as documented Endocrine Endocrinology: Reports systems reviewed and no addt'l complaints, except as documented Hematologic/Lymphatic Hematologic/Lymphatic: Reports systems reviewed and no addt'l complaints, except as documented Allergic/Immunologic Allergic/Immunologic: Reports systems reviewed and no addt'l complaints, except as documented Physical Exam Const alert, oriented x3 and no apparent distress HEENT normocephalic, head/scalp atraumatic, hearing grossly normal bilaterally, external ears normal and external nose normal Eyes General Eye: normal appearance of both eyes Neck supple General: trachea midline Lymph Lymphatic: no lymphedema noted Chest inspection of chest normal Resp normal respiratory effort, normal air movement and no retractions Cardio regular rate GI soft to palpation, non-tender and non-distended no CVA tenderness Back/Spine no CVA tenderness Extremity Extremity Narrative: Patient with recent BKA, as I entered the room, nursing was working with patient on dressing her leg. Skin no rashes or lesions noted, skin turgor normal, no jaundice, no petechiae and no mottling Neuro oriented x3, CN's II-XII intact bilaterally and moves all extremities Psych mental status grossly normal, thought process normal and cooperative Lab / Micro Data 11/02/23 05:29 11/03/23 05:32 Labs: Laboratory Results - last 24 hr 11/02/23 05:29: Hemoglobin A1c 7.1 H 11/02/23 16:38: POC Glucose 76 11/02/23 21:20: U Random Total Protein < 6.0, Urine Creatinine 29.90, Protein/Creatinin Ratio TNP 11/02/23 21:48: POC Glucose 158 H 11/03/23 03:19: POC Glucose 88 11/03/23 05:32: Sodium 136, Potassium 4.3, Chloride 102, Carbon Dioxide 27.0, Anion Gap 7, BUN 50 H, Creatinine 1.89 H, Estim Creat Clear Calc 47.78, Est GFR (MDRD) Af Amer 35 L, Est GFR (MDRD) Non-Af 29 L, BUN/Creatinine Ratio 26.5 H, Glucose 111 H, Calcium 9.1 11/03/23 06:48: POC Glucose 149 H 11/03/23 11:05: POC Glucose 191 H Imaging Radiology Impression Abdomen/Pelvis CT 11/03/23 13:04 IMPRESSION: Mild degree of left hydronephrosis and left hydroureter due to a 7.1 mm x 9.6 mm calculus in the distal one third of the left ureter. Nonobstructive 2 mm calculus in the lower pole calyx of the left kidney. Normal bilateral renal size. The patient is status post cholecystectomy. Electronically Signed: Michele Gilliland MD at 14:08 EDT , CT reviewed. There is a large left ureteal stone with minimal hydronephrosis. Cr is elevated, but her BUN is as well.
[2023-11-03 16:49] LABS: Bedside Glucose 79 mg/dL (74-106)
--- NOTE | 2023-11-03 17:02 | CASEMGMT ---
Social Work SW met with patient at bedside to provide mental health resources for outpatient follow up. Patient reviewed resources with SW. SW discussed insurance coverage and out of pocket services with patient. The patient is agreeable to review mental health resources. SW discussed decision regarding discharge disposition. Patient informed SW that she discussed transition of care plans with her . The patient informed SW that her is unable to take FMLA due to staff shortage at work. Patient at this time does not want to return home with home health. Patient informed SW that she is currently open to transitioning to TCU for first choice option and an alternative choice for placement would be closer to [place], [place] where she currently resides. SW provided patient with a list of SNF providers including quality and resource use data and consistent with patient's preferred geographic region, medical needs, and insurance network via [employer]. Patient next review date for insurance is 11/09/2023. MANJEET Kang
[2023-11-03] MEDS: Pregabalin 75 MG Capsule 150 MG PO (21:25)
[2023-11-03] MEDS: Atorvastatin Calcium 10 MG Tablet PO (21:25)
[2023-11-03] MEDS: Insulin U-500 UNITS/ML PEN 60 UNITS SC (21:27)
[2023-11-03 21:30] VITALS: BP 150/49; PULSE 69; RESP 18; TEMP 36.7; O2SAT 100
[2023-11-03] MEDS: Cephalexin 500 MG Capsule PO (22:28)
[2023-11-03 22:56] LABS: Bedside Glucose 248 mg/dL (74-106)
--- NOTE | 2023-11-03 23:17 | NURSING ---
22:15 Dr Mata in to see pt.
[2023-11-04 00:38] LABS: Bacteria 0 SEEN /hpf (None Seen); Mucous, Urine 0 SEEN /hpf (<or=2+); Red Blood Cells-Urine 0 SEEN /hpf (0-5); Squamous Epithelial Cells - UA 0 SEEN /hpf (5-10); White Blood Cells 0 SEEN /hpf (0-5)
[2023-11-04 00:47] LABS: Color, Urine Yellow (Yellow); Urine Clarity Clear (Clear)
[2023-11-04 00:48] LABS: Glucose, Dipstick Normal (Normal); Ketone-Dipstick Negative (Negative); Nitrite-Dipstick Negative (Negative); Occult Blood-Urine 10 /ul (Negative); Protein-Dipstick Negative (Negative); Urine Bilirubin Dipstick Negative (Negative); Urine Urobilinogen Normal (Normal)
[2023-11-04 00:49] LABS: Leukocyte Esterase-Dipstick 100 /ul (Negative)
[2023-11-04] MEDS: 0.9% Normal Saline (1000mL) 1,000 ML 100 ML IV ×3 (02:32→23:19)
--- NOTE | 2023-11-04 04:36 | NURSING ---
Reviewed and agree with Yaz VU, documentation and assessment charting.
[2023-11-04] MEDS: Cephalexin 500 MG Capsule PO ×3 (06:26→22:21)
[2023-11-04] MEDS: Arthritis Pain Compound 60 CLICK TUBE TOPICAL ×3 (06:26→22:22)
[2023-11-04] MEDS: Enoxaparin 40 MG/0.4 ML Syringe SC (06:26)
[2023-11-04] MEDS: Levothyroxine 137 MCG Tablet PO (06:26)
[2023-11-04] MEDS: Insulin Lispro 100 UNIT/ML INSULN.PEN SC (06:33)
[2023-11-04] MEDS: Pregabalin 50 MG Capsule 100 MG PO ×2 (07:01→17:00)
[2023-11-04] MEDS: Lisinopril 20 MG Tablet PO (07:01)
[2023-11-04] MEDS: Insulin U-500 UNITS/ML PEN 145 UNITS SC (07:02)
[2023-11-04 07:13] LABS: Bedside Glucose 233 mg/dL (74-106)
[2023-11-04] MEDS: 0.9% Saline Lock 10 ML Syringe IV (07:22)
[2023-11-04 08:18] VITALS: PULSE 97
[2023-11-04] MEDS: buPROPion (XL) 150 MG TABLET.XL PO (08:18)
[2023-11-04] MEDS: Metoprolol(XL)Succ 100 MG Tablet PO (08:18)
[2023-11-04] MEDS: Psyllium 1 PACKET 2 PACKET PO (08:29)
[2023-11-04] MEDS: Cyanocobalamin 500 MCG Tablet 1000 MCG PO (08:29)
[2023-11-04] MEDS: Ferrous Sulfate 325 MG Tablet PO (08:29)
[2023-11-04] MEDS: Aspirin E.C. 81 MG Tablet PO (08:30)
[2023-11-04] MEDS: Pantoprazole Sodium 40 MG Tablet PO (08:30)
[2023-11-04] MEDS: Multivitamins,Therapeutic Tablet 1 TABLET PO (08:30)
[2023-11-04] MEDS: Juven (unflavored) Packet 1 PACKET PO ×2 (08:30→17:04)
[2023-11-04] MEDS: Ascorbic Acid 500 MG Tablet 1000 MG PO (08:30)
[2023-11-04] MEDS: DULoxetine Hcl 30 MG Capsule PO (08:30)
[2023-11-04] MEDS: Calcium (Elemental) 500 MG Tablet PO (08:30)
[2023-11-04] MEDS: Loratadine 10 MG Tablet PO (08:31)
[2023-11-04] MEDS: Vitamin E 400 UNITS Capsule PO (08:31)
[2023-11-04] MEDS: Nystatin Powder 15gm Bottle 1 APPLIC TOPICAL ×2 (08:32→22:23)
[2023-11-04 09:22] VITALS: BP 141/67; PULSE 97; RESP 15; TEMP 36.7; O2SAT 96
--- NOTE | 2023-11-04 09:44 | CASEMGMT ---
Social Work SW received a call from patient informing SW that she spoke with her regarding transition of care plans. Patient has decided that TCU will be best choice for placement post acute stay. Patient informed SW that she has a procedure due to kidney functions; elevation in creatinine and blockage. Patient has insurance NRD of 11/08; potential discharge plan transfer TCU MANJEET Kang
[2023-11-04 11:29] LABS: Bedside Glucose 108 mg/dL (74-106)
[2023-11-04] MEDS: Insulin U-500 UNITS/ML PEN 45 UNITS SC (11:54)
[2023-11-04 15:44] LABS: Bedside Glucose 51 mg/dL (74-106)
[2023-11-04 16:08] LABS: Bedside Glucose 55 mg/dL (74-106)
[2023-11-04 16:41] LABS: Bedside Glucose 57 mg/dL (74-106)
[2023-11-04 17:09] LABS: Bedside Glucose 63 mg/dL (74-106)
--- NOTE | 2023-11-04 17:23 | NURSING ---
1530 blood sugar 51-snack given, recheck 55-snack given, recheck-57, pt requesting another snack, recheck 63-. Dr Simon made aware. Orders to recheck 2 hours after after pt eats dinner. Changes made to medicaitons.
[2023-11-04 22:00] VITALS: BP 149/81; PULSE 89; RESP 16; TEMP 36.7; O2SAT 97
[2023-11-04] MEDS: Pregabalin 75 MG Capsule 150 MG PO (22:20)
[2023-11-04] MEDS: Atorvastatin Calcium 10 MG Tablet PO (22:22)
[2023-11-04] MEDS: Senna/Docusate Sodium 1 Tablet 2 TABLET PO (22:23)
[2023-11-04] MEDS: Insulin U-500 UNITS/ML PEN 50 UNITS SC (22:28)
[2023-11-04 22:59] LABS: Bedside Glucose 190 mg/dL (74-106)
[2023-11-04 22:59] LABS: Bedside Glucose 143 mg/dL (74-106)
[2023-11-05] VITALS (8 sets, daily range): BP systolic 111–158; BP diastolic 51–79; PULSE 68–98; RESP 16; TEMP 36.1–37; O2SAT 92–99
[2023-11-05] MEDS: Arthritis Pain Compound 60 CLICK TUBE TOPICAL ×3 (06:47→21:38)
[2023-11-05] MEDS: Enoxaparin 40 MG/0.4 ML Syringe SC (06:48)
[2023-11-05] MEDS: Insulin U-500 UNITS/ML PEN 120 UNITS SC (06:49)
[2023-11-05 07:09] LABS: Bedside Glucose 214 mg/dL (74-106)
[2023-11-05] MEDS: Nystatin Powder 15gm Bottle 1 APPLIC TOPICAL ×2 (08:16→21:45)
[2023-11-05] MEDS: 0.9% Normal Saline (1000mL) 1,000 ML 100 ML IV (09:10)
--- NOTE | 2023-11-05 11:08 | NURSING ---
pt off the unit for procedure
[2023-11-05] MEDS: Lactated Ringers 1,000 ML 15 ML IV (11:23)
[2023-11-05] MEDS: Cefazolin 3 GM in 0.9% Normal Saline (100mL Bag) 100 ML IV (12:25)
--- NOTE | 2023-11-05 13:08 | CALC_PTH ---
PATIENT: KAYC KEEN LOC: RU U#:[id number] AGE/SX: 63/F ROOM: [facility] RE10/22/[address]: Dr. Cristina Simon DO : 1960 BED: 1 DIS: 11/19/2023 SPEC #: [id number] RECD: 11/05/23 14:56 STATUS: ELIANA RERoland #: [id number] [place]: 11/05/23 13:[address]: Marga Mata DEPT: SURGICAL PATHOLOGY RECD BY: Aaron Quinn ENTERED: 11/05/23 14:56 SP TYPE: Calculi OTHR DR: DO Dr. Marga Bowman MD Dr. Toni King, MD Megan Anderson, ACQUISITION PROFESSIONAL-C JAQUI Bolivar Tissues: CALCULI Procedures: Surgery Specimen Level I Comments: @ Ordering doctor for SHABBIR edited from to @ by TWYLA at 11/06/23 0807 @ Submitting doctor edited from to @ by TWYLA at 11/06/23806 HEADER OPERATION: Cysturerelas, cysto, Ureteroscopy, Basket extraction, Laser, Left stent PRE-OP DIAGNOSIS: Ureteral calculus, Hydronephrosis TISSUE SUBMITTED: Calculi GROSS DIAGNOSIS Calculi: Fragments of the stone, clinically ureteral calculi (gross diagnosis). / 11/05/23 COMMENT The calculus is submitted in its entirety for chemical stone analysis. The results from this study will be reported separately. GROSS DESCRIPTION Received without fixative labeled with the patient's name and designated urinary calculi. The specimen consists of a fragment of brown stone mixed with blood clot measuring in aggregate 0.5 x 0.4 x 0.1 cm. The entire specimen is submitted for stone analysis. / 11/05/23 CPT: 62212
--- NOTE | 2023-11-05 13:40 | OP.PCM_ITS ---
Report of Operation Date of Procedure: 11/05/23 Pre-Operative Diagnosis: Left ureteral calculus Post-Operative Diagnosis: Same Surgery/Procedure Performed:: Cystoscopy, left ureteroscopy, holmium laser lithotripsy,, stone basket extraction, left ureteral stent insertion Surgeon: Marga Mata Type of Anesthesia: General Specimen's removed: Stone fragments Description of Procedure: The patient is a 63-year-old female found to have a large left ureteral calculus who presents for surgical intervention. Informed consent was obtained. The patient was taken the operating room and placed on the operating room table. Anesthesia monitored the head, neck, airway, IV access and vital signs throughout the case. Once anesthesia was appropriately administered the patient was placed into dorsolithotomy position was prepped and draped in usual sterile fashion. The cystoscope was inserted through the urethra under direct visualization into the urinary bladder. The left ureteral orifice was identified and intubated gently with a 0.035 Glidewire. This was advanced without difficulty until it reached the renal pelvis. At this time a semirigid ureteroscope was used alongside of the Glidewire in order to visualize the left ureter and the stone was identified in the distal aspect of the left ureter. A 200 ?m laser fiber was then used to break the stone into small pieces and dust. There is a significant amount of debris and the stone was very soft consistent with a possible uric acid make up. At this time the fragments were removed with a stone basket. After removal of most of the debris the ureter began to bleed and the decision was made to stop the ureteroscopy and place a ureteral stent. The cystoscope was then used to place a 6 Turkmen 26 cm JJ stent with good positioning in the renal pelvis as well as the urinary bladder. This time the patient's bladder was then emptied. The cystoscope was removed. She was awakened and taken to the recovery room in good condition. There were no complications during the procedure. Grafts/Implants Used: 6 Turkmen by 26 cm JJ stent Complications None Admit VTE Documentation VTE Present on Admission: Yes VTE Mechan Device Prophylaxis: SCD's VTE Pharm Prophylaxis ordered?: Yes
--- NOTE | 2023-11-05 14:49 | PN_ITS ---
Subjective Subjective Afebrile VSS Maintaining appropriate oxygen saturation on RA Oral intake - FOOD good FLUIDS good Discussed with nursing - no problems that need addressed Reviewed the THERAPY notes Medication list reviewed. Taken to the OR today by Dr. Mata for stones in the Left ureter with ARF due to obstructive uropathy. A stent was placed in the left ureter. There are still some pieces of stone left and she will have another CT of the abd and pelvis in 2 weeks and follow up with Dr. Mata. She was started on Keflex 500 mg every 8 hours. UA yesterday showed 0 WBCs and 0 RBCs per high-power field. Urine is now bloody secondary to the lithotripsy and stent today. Awake and alert upon return to rehab. No nausea, CP, SOB. She does not have a Killian catheter. She can not recall the composition of the last kidney stone she had. No personal or FH of gout. Blood sugar upon return to rehab is 135. She and her have decided they would like to follow up with Dr. Knapp for the R breast mass. Objective Data Objective Data Vital Signs: Vital Signs Temp Pulse Resp BP Pulse Ox O2 Del Method O2 Flow Rate 98.6 F 68 16 132/60 H 94 Room Air 15 11/05/23 14:00 11/05/23 14:00 11/05/23 14:00 11/05/23 14:00 11/05/23 14:00 11/05/23 14:00 11/05/23 13:40 Oxygen Flow Rate (L/min) 15 Oxygen Delivery Method Room Air Weight: 344 lb 5.793 oz Body Mass Index (BMI) 55.3 Intake & Output: Intake and Output for Last 24 Hours 11/03/23 11/04/23 11/05/23 23:59 23:59 23:59 Intake Total 5045 / 5045 7850 / 8000 1431.67 / 1431.67 Output Total 6250 / 6250 8325 / 9075 3450 / 3450 Balance -1205 / -1205 -475 / -1075 - / Lab / Micro Data 11/02/23 05:29 11/03/23 05:32 Labs: Laboratory Results - last 24 hr 11/04/23 15:25: POC Glucose 51 L 11/04/23 15:49: POC Glucose 55 L 11/04/23 16:20: POC Glucose 57 L 11/04/23 16:50: POC Glucose 63 L 11/04/23 19:31: POC Glucose 143 H 11/04/23 22:27: POC Glucose 190 H 11/05/23 06:46: POC Glucose 214 H Physical Exam Const alert and oriented x3 Constitutional Narrative: Lying flat in bed with no shortness of breath. She is not tachypneic. She does not appear to be in any pain and she is calm. General Appearance: cooperative Resp clear to auscultation bilaterally Auscultation: diminished lung sounds Cardio regular rate, regular rhythm and no gallops GI normal to inspection, nondistended, normoactive bowel sounds, soft to palpation and non-tender Extremity no calf tenderness Skin Rashes: no rashes Wound Narrative: The incision remains intact with no dehiscence, no sherif-incisional erythema, no significant sherif-incisional edema and no discharge. The erythema behind the knee where the stocking rubs is better and there are no openings in the skin. 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 Diabetes mellitus complication status: with kidney complications Chronic kidney disease stage: stage 3 (moderate) Chronic kidney disease stage 3 subtype: stage 3a (GFR 45-59) (6) Chronic renal failure (CRF), stage 3a: (7) Depression: QUALIFIERS: Depression Type: reactive depression Qualified Code(s): F32.9 - Major depressive disorder, single episode, unspecified (8) Acute on chronic renal failure: QUALIFIERS: Acute renal failure type: unspecified Chronic kidney disease stage: stage 3 (moderate) Chronic kidney disease stage 3 subtype: stage 3a (GFR 45-59) Qualified Code(s): N17.9 - Acute kidney failure, unspecified; N18.31 - Chronic kidney disease, stage 3a PLAN: Due to obstructive uropathy due to stones in the Left ureter. (9) S/P cystoscopy with ureteral stent placement: (10) Mass of right breast: PLAN: Plan 1. Continue therapy 2. Check a BMP, uric acid and CBC with differential in the AM. 3. Dr. Knapp will see Elisabet following transfer to TCU 4. She will follow up with Dr. Hilliard or [facility] endocrinology/Dr. Whitney. Charges/Coding Visit Charges Inpatient E&M: 67841 Subs Hosp L1
[2023-11-05 15:19] LABS: Bedside Glucose 135 mg/dL (74-106)
[2023-11-05] MEDS: DULoxetine Hcl 30 MG Capsule PO (16:46)
[2023-11-05] MEDS: Pantoprazole Sodium 40 MG Tablet PO (16:47)
[2023-11-05] MEDS: Cephalexin 500 MG Capsule PO ×2 (16:47→21:38)
[2023-11-05] MEDS: Metoprolol(XL)Succ 100 MG Tablet PO (16:48)
[2023-11-05] MEDS: buPROPion (XL) 150 MG TABLET.XL PO (16:48)
[2023-11-05] MEDS: Juven (unflavored) Packet 1 PACKET PO (16:49)
[2023-11-05] MEDS: Pregabalin 50 MG Capsule 100 MG PO (16:55)
[2023-11-05] MEDS: Insulin U-500 UNITS/ML PEN 35 UNITS SC (17:51)
[2023-11-05 21:36] LABS: Bedside Glucose 409 mg/dL (74-106)
[2023-11-05] MEDS: Insulin U-500 UNITS/ML PEN 60 UNITS SC (21:37)
[2023-11-05] MEDS: Pregabalin 75 MG Capsule 150 MG PO (21:38)
[2023-11-05] MEDS: Atorvastatin Calcium 10 MG Tablet PO (21:38)
[2023-11-05] MEDS: Hydroxychloroquine 200 MG Tablet PO (21:38)
[2023-11-06] MEDS: 0.9% Normal Saline (1000mL) 1,000 ML 100 ML IV ×3 (02:16→22:52)
[2023-11-06] MEDS: Enoxaparin 40 MG/0.4 ML Syringe SC (04:45)
[2023-11-06] MEDS: Levothyroxine 137 MCG Tablet PO (04:45)
[2023-11-06] MEDS: Cephalexin 500 MG Capsule PO ×3 (04:45→22:48)
[2023-11-06 05:21] LABS: Bedside Glucose 226 mg/dL (74-106)
[2023-11-06] MEDS: Insulin U-500 UNITS/ML PEN 145 UNITS SC (07:01)
[2023-11-06 08:29] LABS: Absolute Lymphocyte Count 1.57 X10^3/uL (0.83-4.51); Absolute Neutrophil Count 6.1 X10^3/uL (2.0-7.7); Basophil# 0.05 X10^3/uL; Basophil% 0.6 % (0-1); Eosinophil# 0.03 X10^3/uL; Eosinophils% 0.4 % (0-5); Hematocrit 33.1 % (37-47); Hemoglobin 10.9 g/dL (12.0-15.0); Lymphocyte # 1.57 X10^3/ul (0.83-4.51); Lymphocyte % 18.5 % (19-41); Mean Corp Hgb Conc 32.9 g/dL (32-36); Mean Corpuscular Hgb 31.6 pg (27.0-32.0); Mean Corpuscular Volume 95.9 fL (81-99); Mean Platelet Vol. 10.2 fl (6.2-12.0); Monocyte# 0.59 X10^3/uL; NRBC Flagged by Analyzer 0 % (0-5); Neutrophil # 6.14 X10^3/uL (2.7-7.7); Neutrophil % 72.4 % (47-70); Platelet Count 214 K/mm3 (150-450); RBC Distribution Width CV 13.8 % (11.6-14.6); RBC Distribution Width SD 48.2 fl (35.1-43.9); Red Blood Count 3.45 M/mm3 (4.2-5.4); White Blood Count 8.5 K/mm3 (4.4-11.0)
[2023-11-06] MEDS: Insulin Lispro 100 UNIT/ML INSULN.PEN SC (08:29)
[2023-11-06] MEDS: Ferrous Sulfate 325 MG Tablet PO (08:31)
[2023-11-06] MEDS: Multivitamins,Therapeutic Tablet 1 TABLET PO (08:31)
[2023-11-06] MEDS: Lisinopril 20 MG Tablet PO (08:31)
[2023-11-06] MEDS: Juven (unflavored) Packet 1 PACKET PO ×2 (08:31→16:55)
[2023-11-06] MEDS: Calcium (Elemental) 500 MG Tablet PO (08:32)
[2023-11-06] MEDS: Vitamin E 400 UNITS Capsule PO (08:32)
[2023-11-06 08:51] VITALS: BP 133/56; PULSE 72; RESP 17; TEMP 36.1; O2SAT 96
[2023-11-06 09:06] VITALS: BMI 55.0
[2023-11-06] MEDS: Pregabalin 50 MG Capsule 100 MG PO ×2 (09:11→16:55)
[2023-11-06 09:24] LABS: Anion Gap 4 (5-15); BUN 32 mg/dL (7-18); BUN/Creat Ratio 25.6 RATIO (10-20); Calcium,Total 8.5 mg/dL (8.5-10.1); Chloride 108 mmol/L (98-107); Creatinine, Serum 1.25 mg/dL (0.55-1.02); EST Glomerular Filtration Rate 46 mL/min (>60); Est Glom Filt Rate - Afr Amer 56 mL/min (>60); Estimated Creatinine Clearance 71.95 ml/min; Glucose 203 mg/dL (74-106); Potassium 4.3 mmol/L (3.5-5.1); Sodium Level 138 mmol/L (136-145)
--- NOTE | 2023-11-06 09:38 | PCM.PROGNOTE ---
Subjective Subjective Postoperative day #1 Day #2 Keflex Afebrile VSS Maintaining appropriate oxygen saturation on RA Oral intake - FOOD good FLUIDS fluid balance yesterday was -3309. Overnight she was -766. The blood sugar record was reviewed. She had 25 units of U-500 yesterday morning but then did not get any insulin until bedtime. She was 135 when she came back from surgery and at at bedtime was 409. Blood sugar this morning is 226. Weight today is 342 pounds and 3.2 ounces, down from 344 pounds and 5.8 ounces 1 week ago. Discussed with nursing - no problems that need addressed Reviewed the THERAPY notes-still total assist for toileting hygiene post void and clothing management. Medication list reviewed. The left flank/back pain she has been having has resolved. She tells me she had sweats last evening but has had no recurrence. She denies shaking chills. Urine is still somewhat bloody but she has no dysuria. She denies lightheadedness, chest pain, shortness of breath at rest, nausea/vomiting, abdominal pain, dysuria and calf tenderness. Neuropathic pain is well controlled. She tells me that she feels good today. No CORNEJO, constipation and no change in the BP with Wellbutrin. All lab drawn this morning was personally reviewed. White blood cell count is normal at 8.5 with 72% neutrophils and 1.1% immature granulocytes. I suspect this is due to stress of surgery and not to infection. Hemoglobin is 10.9. Sodium is normal at 138 and the potassium is 4.3. The BUN is 32 which is down from 50 on 11/03/2023. Creatinine is 1.25, down from 1.89 on 11/03/2023. Uric acid is pending. The uric acid is elevated at 7.8. Denies any hx of gout. Then stone analysis is pending. Dr. Mata suspects it may be a uric acid stone. Objective Data Objective Data Vital Signs: Vital Signs Temp Pulse Resp BP Pulse Ox O2 Del Method O2 Flow Rate 97.0 F L 72 17 133/56 H 96 Room Air 15 11/06/23 08:51 11/06/23 08:51 11/06/23 08:51 11/06/23 08:51 11/06/23 08:51 11/06/23 08:51 11/05/23 13:40 Oxygen Flow Rate (L/min) 15 Oxygen Delivery Method Room Air Weight: 342 lb 3.2 oz Body Mass Index (BMI) 55.0 Intake & Output: Intake and Output for Last 24 Hours 11/04/23 11/05/23 11/06/23 23:59 23:59 23:59 Intake Total 7850 / 8000 2390.67 / 2390.67 833.33 / 833.33 Output Total 8325 / 9075 5700 / 5700 1600 / 1600 Balance -475 / -1075 -3309.33 / -3309.33 -766.67 / -766.67 Lab / Micro Data 11/06/23 07:53 11/06/23 07:53 Labs: Laboratory Results - last 24 hr 11/05/23 15:00: POC Glucose 135 H 11/05/23 21:17: POC Glucose 409 H 11/06/23 05:02: POC Glucose 226 H 11/06/23 07:53: WBC 8.5, RBC 3.45 L, Hgb 10.9 L, Hct 33.1 L, MCV 95.9, MCH 31.6, MCHC 32.9, RDW Std Deviation 48.2 H, RDW Coeff of Roland 13.8, Plt Count 214, MPV 10.2, Immature Gran % (Auto) 1.100 H, Neut % (Auto) 72.4 H, Lymph % (Auto) 18.5 L, Schoolcraft % (Auto) 7.0, Eos % (Auto) 0.4, Baso % (Auto) 0.6, Absolute Neuts (auto) 6.1, Absolute Lymphs (auto) 1.57, Nucleated RBC % 0, Sodium 138, Potassium 4.3, Chloride 108 H, Carbon Dioxide 26.0, Anion Gap 4 L, BUN 32 H, Creatinine 1.25 H, Estim Creat Clear Calc 71.95, Est GFR (MDRD) Af Amer 56 L, Est GFR (MDRD) Non-Af 46 L, BUN/Creatinine Ratio 25.6 H, Glucose 203 H, Calcium 8.5 Physical Exam Const alert, oriented x3 and no apparent distress General Appearance: cooperative Orientation / Consciousness: Negative for confused HEENT Mouth: dry mucous membranes Resp clear to auscultation bilaterally Resp Narrative: No cough. Not tachypneic. Auscultation: diminished lung sounds Cardio regular rate, regular rhythm and no gallops GI normal to inspection, nondistended, normoactive bowel sounds, soft to palpation and non-tender Extremity no calf tenderness Skin Rashes: no rashes Wound Narrative: The incision remains intact with no dehiscence, no shreif-incisional erythema, no significant sherif-incisional edema and no discharge. The erythema behind the knee where the stocking rubs is better and there are no openings in the skin. Neuro CN's II-XII intact bilaterally Psych thought process normal, cooperative and affect normal Psych Narrative: tearful today. She was supposed to be back to work this week She has always made her work a priority and not herself. She is retiring in December. Does not know what she will do with her time......she is afraid she will get home and sit. Does not really have any hobbies. Likes to play cards. Does not want her to be inconvenienced and having to drive her everywhere. She is amenable to getting some counselling post DC and learn how to cope with the disability and make herself a priority. She is sleeping well at night and has had no adverse reactions to Wellbutrin. 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 Diabetes mellitus complication status: with kidney complications Chronic kidney disease stage: stage 3 (moderate) Chronic kidney disease stage 3 subtype: stage 3a (GFR 45-59) (6) Chronic renal failure (CRF), stage 3a: (7) Depression: QUALIFIERS: Depression Type: reactive depression Qualified Code(s): F32.9 - Major depressive disorder, single episode, unspecified (8) Acute on chronic renal failure: QUALIFIERS: Acute renal failure type: unspecified Chronic kidney disease stage: stage 3 (moderate) Chronic kidney disease stage 3 subtype: stage 3a (GFR 45-59) Qualified Code(s): N17.9 - Acute kidney failure, unspecified; N18.31 - Chronic kidney disease, stage 3a PLAN: Due to obstructive uropathy due to stones in the Left ureter. (9) S/P cystoscopy with ureteral stent placement: (10) Mass of right breast: (11) Hyperuricemia: PLAN: Plan 1. Continue therapy 2. Increase the Wellbutrin XL to 300 mg daily in the AM. 3. On Thursday change the Duloxetine to 20 mg daily for 1 week and then DC 4. Continue the IV fluids since she is still in negative fluid balance. Post obstructive diuresis? 5. Hold off on Allopurinol until the results of the stone analysis is available and then consider whether or not to start Allopurinol for hyperuricemia. Charges/Coding Visit Charges Inpatient E&M: 28902 [facility] Hosp L1
[2023-11-06] MEDS: Loratadine 10 MG Tablet PO (09:59)
[2023-11-06] MEDS: Psyllium 1 PACKET 2 PACKET PO (10:00)
[2023-11-06] MEDS: Aspirin E.C. 81 MG Tablet PO (10:00)
[2023-11-06] MEDS: Hydroxychloroquine 200 MG Tablet PO ×2 (10:00→22:49)
[2023-11-06] MEDS: Cyanocobalamin 500 MCG Tablet 1000 MCG PO (10:01)
[2023-11-06] MEDS: Ascorbic Acid 500 MG Tablet 1000 MG PO (10:01)
[2023-11-06] MEDS: Nystatin Powder 15gm Bottle 1 APPLIC TOPICAL (10:04)
[2023-11-06 10:38] LABS: Uric Acid 7.8 mg/dL (2.6-6.0)
[2023-11-06] MEDS: DULoxetine Hcl 30 MG Capsule PO (11:04)
[2023-11-06 11:05] VITALS: PULSE 76
[2023-11-06] MEDS: Pantoprazole Sodium 40 MG Tablet PO (11:05)
[2023-11-06] MEDS: Metoprolol(XL)Succ 100 MG Tablet PO (11:05)
[2023-11-06] MEDS: buPROPion (XL) 150 MG TABLET.XL PO (11:05)
[2023-11-06 11:59] LABS: Bedside Glucose 141 mg/dL (74-106)
[2023-11-06] MEDS: Insulin U-500 UNITS/ML PEN 35 UNITS SC (12:34)
[2023-11-06] MEDS: Arthritis Pain Compound 60 CLICK TUBE TOPICAL ×2 (13:48→22:49)
[2023-11-06 17:40] LABS: Bedside Glucose 107 mg/dL (74-106)
[2023-11-06 19:28] VITALS: BP 118/48; PULSE 66; RESP 18; TEMP 36.6; O2SAT 98
[2023-11-06] MEDS: Senna/Docusate Sodium 1 Tablet 2 TABLET PO (22:48)
[2023-11-06] MEDS: Atorvastatin Calcium 10 MG Tablet PO (22:49)
[2023-11-06] MEDS: Pregabalin 75 MG Capsule 150 MG PO (22:51)
[2023-11-06 23:34] LABS: Bedside Glucose 89 mg/dL (74-106)
[2023-11-07] MEDS: Insulin U-500 UNITS/ML PEN 60 UNITS SC (00:09)
[2023-11-07 00:25] LABS: Bedside Glucose 123 mg/dL (74-106)
--- NOTE | 2023-11-07 04:51 | NURSING ---
0410; pt called out to use bsc. states she feels slightly shaky blood glucose 59. pt given 120 mls applejuice. rechecked bs at 0430; 91. pt denies symptoms. given tata chew and pb. will continue to monitor bs.
[2023-11-07 05:04] LABS: Bedside Glucose 59 mg/dL (74-106)
[2023-11-07 05:04] LABS: Bedside Glucose 91 mg/dL (74-106)
--- NOTE | 2023-11-07 05:10 | NURSING ---
Notified Dr. Padilla hospitalist of bs 59 and 91 along with interventions of giving juice, crackers and pb. No new orders obtained.
[2023-11-07] MEDS: Enoxaparin 40 MG/0.4 ML Syringe SC (06:29)
[2023-11-07] MEDS: Lisinopril 20 MG Tablet PO (06:29)
[2023-11-07] MEDS: Levothyroxine 137 MCG Tablet PO (06:29)
[2023-11-07] MEDS: Cephalexin 500 MG Capsule PO ×3 (06:31→22:51)
[2023-11-07] MEDS: Pregabalin 50 MG Capsule 100 MG PO ×2 (06:36→17:00)
[2023-11-07 07:18] LABS: Bedside Glucose 97 mg/dL (74-106)
[2023-11-07 07:57] LABS: Anion Gap 5 (5-15); BUN 31 mg/dL (7-18); Calcium,Total 8.7 mg/dL (8.5-10.1); Chloride 112 mmol/L (98-107); Creatinine, Serum 1.15 mg/dL (0.55-1.02); EST Glomerular Filtration Rate 51 mL/min (>60); Est Glom Filt Rate - Afr Amer 61 mL/min (>60); Glucose 119 mg/dL (74-106); Potassium 4.2 mmol/L (3.5-5.1); Sodium Level 142 mmol/L (136-145)
[2023-11-07] MEDS: Arthritis Pain Compound 60 CLICK TUBE TOPICAL ×3 (08:37→22:11)
[2023-11-07] MEDS: Insulin U-500 UNITS/ML PEN 145 UNITS SC (08:38)
[2023-11-07] MEDS: Multivitamins,Therapeutic Tablet 1 TABLET PO (08:39)
[2023-11-07] MEDS: Juven (unflavored) Packet 1 PACKET PO ×2 (08:39→16:57)
[2023-11-07] MEDS: Ferrous Sulfate 325 MG Tablet PO (08:41)
[2023-11-07] MEDS: Vitamin E 400 UNITS Capsule PO (08:41)
[2023-11-07] MEDS: 0.9% Normal Saline (1000mL) 1,000 ML 100 ML IV ×2 (08:47→18:37)
[2023-11-07 10:00] VITALS: BP 167/75; PULSE 64; RESP 18; TEMP 36.3; O2SAT 97
[2023-11-07] MEDS: DULoxetine Hcl 30 MG Capsule PO (10:10)
[2023-11-07] MEDS: Loratadine 10 MG Tablet PO (10:10)
[2023-11-07] MEDS: Aspirin E.C. 81 MG Tablet PO (10:10)
[2023-11-07] MEDS: Psyllium 1 PACKET 2 PACKET PO (10:10)
[2023-11-07] MEDS: Hydroxychloroquine 200 MG Tablet PO ×2 (10:11→22:11)
[2023-11-07] MEDS: Pantoprazole Sodium 40 MG Tablet PO (10:11)
[2023-11-07] MEDS: Ascorbic Acid 500 MG Tablet 1000 MG PO (10:12)
[2023-11-07] MEDS: Cyanocobalamin 500 MCG Tablet 1000 MCG PO (10:12)
[2023-11-07 10:13] VITALS: BP 167/75; PULSE 64
[2023-11-07] MEDS: buPROPion (XL) 300 MG TABLET.XL PO (10:13)
[2023-11-07] MEDS: Metoprolol(XL)Succ 100 MG Tablet PO (10:13)
[2023-11-07] MEDS: Calcium (Elemental) 500 MG Tablet PO (10:26)
[2023-11-07 10:50] VITALS: BP 134/64; PULSE 66
[2023-11-07] MEDS: Nystatin Powder 15gm Bottle 1 APPLIC TOPICAL ×2 (10:57→22:11)
[2023-11-07] MEDS: Insulin U-500 UNITS/ML PEN 35 UNITS SC (12:22)
[2023-11-07 12:23] LABS: Bedside Glucose 116 mg/dL (74-106)
--- NOTE | 2023-11-07 17:27 | NURSING ---
Dr. Simon aware of hypoglycemic episode at this time and patient is currently eating dinner and has no symptoms.
[2023-11-07 17:36] LABS: Bedside Glucose 63 mg/dL (74-106)
[2023-11-07 17:36] LABS: Bedside Glucose 68 mg/dL (74-106)
[2023-11-07 18:12] LABS: Bedside Glucose 81 mg/dL (74-106)
[2023-11-07 22:00] VITALS: BP 100/63; PULSE 63; RESP 18; TEMP 36.6; O2SAT 100
[2023-11-07] MEDS: Senna/Docusate Sodium 1 Tablet 2 TABLET PO (22:10)
[2023-11-07] MEDS: Pregabalin 75 MG Capsule 150 MG PO (22:11)
[2023-11-07] MEDS: Atorvastatin Calcium 10 MG Tablet PO (22:11)
[2023-11-07] MEDS: Insulin U-500 UNITS/ML PEN 55 UNITS SC (22:12)
[2023-11-07 22:45] LABS: Bedside Glucose 166 mg/dL (74-106)
[2023-11-08 02:50] LABS: Bedside Glucose 130 mg/dL (74-106)
[2023-11-08] MEDS: 0.9% Normal Saline (1000mL) 1,000 ML 100 ML IV (04:40)
--- NOTE | 2023-11-08 05:28 | NURSING ---
Pt given decreased dose 55 units of U500 insulin sq last anjelica prior to bed after having a yogurt, 4 tata crackers, 2 pb, and a milk.BS prior to insulin was 166. At approx 2 am pt asked for bs to be checked she was at 130. At approx 0415 she awoke to use bathroom. BS at this time was 70. Pt was asymptomatic. Pt was given a juice followed by 2 tata crackers and a pb.
[2023-11-08] MEDS: Enoxaparin 40 MG/0.4 ML Syringe SC (06:33)
[2023-11-08] MEDS: Cephalexin 500 MG Capsule PO ×3 (06:33→22:55)
[2023-11-08] MEDS: Arthritis Pain Compound 60 CLICK TUBE TOPICAL ×3 (06:33→22:56)
[2023-11-08] MEDS: Pregabalin 50 MG Capsule 100 MG PO ×2 (06:34→16:20)
[2023-11-08] MEDS: Lisinopril 20 MG Tablet PO (06:34)
[2023-11-08] MEDS: Levothyroxine 137 MCG Tablet PO (06:34)
[2023-11-08 06:44] LABS: Bedside Glucose 70 mg/dL (74-106)
[2023-11-08 06:52] LABS: Bedside Glucose 106 mg/dL (74-106)
[2023-11-08 07:45] VITALS: BP 158/78; PULSE 65; RESP 18; TEMP 36.6; O2SAT 97
[2023-11-08] MEDS: Insulin U-500 UNITS/ML PEN 145 UNITS SC (09:13)
[2023-11-08] MEDS: Juven (unflavored) Packet 1 PACKET PO ×2 (09:14→16:20)
[2023-11-08] MEDS: Ferrous Sulfate 325 MG Tablet PO (09:14)
[2023-11-08] MEDS: Multivitamins,Therapeutic Tablet 1 TABLET PO (09:15)
[2023-11-08] MEDS: Calcium (Elemental) 500 MG Tablet PO (09:16)
[2023-11-08] MEDS: Loratadine 10 MG Tablet PO (09:17)
[2023-11-08] MEDS: Vitamin E 400 UNITS Capsule PO (09:17)
[2023-11-08 09:18] VITALS: PULSE 65
[2023-11-08] MEDS: Metoprolol(XL)Succ 100 MG Tablet PO (09:18)
[2023-11-08] MEDS: Pantoprazole Sodium 40 MG Tablet PO (09:18)
[2023-11-08] MEDS: DULoxetine Hcl 30 MG Capsule PO (09:18)
[2023-11-08] MEDS: Aspirin E.C. 81 MG Tablet PO (09:18)
[2023-11-08] MEDS: Cyanocobalamin 500 MCG Tablet 1000 MCG PO (09:22)
[2023-11-08] MEDS: buPROPion (XL) 300 MG TABLET.XL PO (09:22)
[2023-11-08] MEDS: Hydroxychloroquine 200 MG Tablet PO ×2 (09:22→22:55)
[2023-11-08] MEDS: Ascorbic Acid 500 MG Tablet 1000 MG PO (09:22)
[2023-11-08] MEDS: Psyllium 1 PACKET 2 PACKET PO (11:52)
[2023-11-08 11:54] LABS: Bedside Glucose 176 mg/dL (74-106)
[2023-11-08] MEDS: Insulin U-500 UNITS/ML PEN 30 UNITS SC (11:54)
[2023-11-08 16:40] LABS: Bedside Glucose 112 mg/dL (74-106)
[2023-11-08 20:07] VITALS: BP 104/44; PULSE 66; RESP 18; TEMP 36.6; O2SAT 98
[2023-11-08 22:03] LABS: Bedside Glucose 104 mg/dL (74-106)
[2023-11-08 22:29] VITALS: BP 153/56; PULSE 64; O2SAT 96
[2023-11-08] MEDS: Pregabalin 75 MG Capsule 150 MG PO (22:55)
[2023-11-08] MEDS: Senna/Docusate Sodium 1 Tablet 2 TABLET PO (22:55)
[2023-11-08] MEDS: 0.9% Saline Lock 10 ML Syringe IV (22:56)
[2023-11-08] MEDS: Atorvastatin Calcium 10 MG Tablet PO (22:56)
[2023-11-08] MEDS: Insulin U-500 UNITS/ML PEN 50 UNITS SC (23:02)
[2023-11-08] MEDS: Nystatin Powder 15gm Bottle 1 APPLIC TOPICAL (23:03)
[2023-11-08 23:28] LABS: Bedside Glucose 130 mg/dL (74-106)
[2023-11-09 02:50] LABS: Bedside Glucose 79 mg/dL (74-106)
[2023-11-09 05:56] LABS: Bedside Glucose 67 mg/dL (74-106)
[2023-11-09] MEDS: Lisinopril 20 MG Tablet PO (05:59)
[2023-11-09] MEDS: Cephalexin 500 MG Capsule PO (05:59)
[2023-11-09] MEDS: Levothyroxine 137 MCG Tablet PO (05:59)
[2023-11-09] MEDS: Pregabalin 50 MG Capsule 100 MG PO ×2 (05:59→16:46)
[2023-11-09] MEDS: Enoxaparin 40 MG/0.4 ML Syringe SC (06:00)
[2023-11-09] MEDS: Arthritis Pain Compound 60 CLICK TUBE TOPICAL ×3 (06:00→21:50)
[2023-11-09 07:15] LABS: Bedside Glucose 131 mg/dL (74-106)
[2023-11-09 07:30] VITALS: BP 153/81; PULSE 72; RESP 18; TEMP 36.6; O2SAT 96
[2023-11-09] MEDS: Insulin U-500 UNITS/ML PEN 145 UNITS SC (07:49)
[2023-11-09] MEDS: Calcium (Elemental) 500 MG Tablet PO (07:50)
[2023-11-09] MEDS: Ferrous Sulfate 325 MG Tablet PO (07:50)
[2023-11-09] MEDS: Multivitamins,Therapeutic Tablet 1 TABLET PO (07:50)
[2023-11-09] MEDS: Vitamin E 400 UNITS Capsule PO (07:50)
[2023-11-09] MEDS: buPROPion (XL) 300 MG TABLET.XL PO (07:50)
[2023-11-09] MEDS: Hydroxychloroquine 200 MG Tablet PO ×2 (07:50→21:58)
[2023-11-09] MEDS: Ascorbic Acid 500 MG Tablet 1000 MG PO (07:50)
[2023-11-09 07:51] VITALS: BP 153/81; PULSE 72
[2023-11-09] MEDS: Loratadine 10 MG Tablet PO (07:51)
[2023-11-09] MEDS: Metoprolol(XL)Succ 100 MG Tablet PO (07:51)
[2023-11-09] MEDS: Cyanocobalamin 500 MCG Tablet 1000 MCG PO (07:51)
[2023-11-09] MEDS: Pantoprazole Sodium 40 MG Tablet PO (07:51)
[2023-11-09] MEDS: Aspirin E.C. 81 MG Tablet PO (07:51)
[2023-11-09] MEDS: Psyllium 1 PACKET 2 PACKET PO (07:51)
[2023-11-09] MEDS: Nystatin Powder 15gm Bottle 1 APPLIC TOPICAL (07:52)
[2023-11-09] MEDS: Juven (unflavored) Packet 1 PACKET PO ×2 (07:53→16:46)
[2023-11-09] MEDS: DULoxetine Hcl 30 MG Capsule PO (07:53)
--- NOTE | 2023-11-09 10:08 | PN_ITS ---
Subjective Subjective Flor was seen on team rounds today. Her was not able to attend. Afebrile VSS-systolic is not adequately controlled during the day but at 2200 is on the lowish side at 104/44. Maintaining appropriate oxygen saturation on RA Oral intake - FOOD good FLUIDS good. The fluid balance has been positive for the past 3 days but overnight she was -1280. Intravenous fluids were discontinued yesterday The blood sugar record was reviewed. Discussed with nursing - no problems that need addressed Reviewed the THERAPY notes Medication list reviewed. Antihypertensives include metoprolol XL 100 mg every morning and lisinopril 20 mg every morning She was hypoglycemic over the weekend at supper and in the AM. Insulin was adjusted. BMP on 11/07/2023 showed a sodium of 142, potassium of 4.2 and a BUN of 31 with a creatinine of 1.15. Her only complaint is lack of sleep due to alarms at night for low blood sugars. She denies chest pain, lightheadedness, shortness of breath, cough, dysuria, nausea/vomiting and calf tenderness. Objective Data Objective Data Vital Signs: Vital Signs Temp Pulse Resp BP Pulse Ox O2 Del Method O2 Flow Rate 97.9 F 72 18 153/81 H 96 Room Air 15 11/09/23 07:30 11/09/23 07:51 11/09/23 07:30 11/09/23 07:51 11/09/23 07:30 11/09/23 07:30 11/05/23 13:40 Oxygen Flow Rate (L/min) 15 Oxygen Delivery Method Room Air Weight: 342 lb 3.2 oz Body Mass Index (BMI) 55.0 Intake & Output: Intake and Output for Last 24 Hours 11/07/23 11/08/23 11/09/23 23:59 23:59 23:59 Intake Total 5975.00 / 7015.00 5580 / 5820 720 / 720 Output Total 5900 / 7450 5250 / 6050 1999 / 1999 Balance 75.00 / -435.00 330 / -230 -1280 / -1280 Lab / Micro Data 11/06/23 07:53 11/07/23 07:25 Labs: Laboratory Results - last 24 hr 11/08/23 11:34: POC Glucose 176 H 11/08/23 16:14: POC Glucose 112 H 11/08/23 21:33: POC Glucose 104 11/08/23 22:59: POC Glucose 130 H 11/09/23 02:27: POC Glucose 79 11/09/23 05:38: POC Glucose 67 L 11/09/23 06:33: POC Glucose 131 H Physical Exam Const alert, oriented x3 and no apparent distress General Appearance: cooperative HEENT Mouth: dry mucous membranes Resp clear to auscultation bilaterally Auscultation: diminished lung sounds Cardio regular rate and regular rhythm GI normal to inspection, nondistended, normoactive bowel sounds, soft to palpation and non-tender Extremity no calf tenderness General Extremity: Negative for edema Skin Wound Narrative: The incision is intact with no dehiscence, no purulent discharge and no sherif- incisional erythema. There was no discharge on the dressing when we removed it today. We were able to put on a smaller drycleaner sock as the edema is improving. 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 Diabetes mellitus complication status: with kidney complications [facility] kidney disease stage: stage 3 (moderate) Chronic kidney disease stage 3 subtype: stage 3a (GFR 45-59) (6) Chronic renal failure (CRF), stage 3a: (7) Depression: QUALIFIERS: Depression Type: reactive depression Qualified Code(s): F32.9 - Major depressive disorder, single episode, unspecified (8) Acute on chronic renal failure: QUALIFIERS: Acute renal failure type: unspecified Chronic kidney disease stage: stage 3 (moderate) Chronic kidney disease stage 3 subtype: stage 3a (GFR 45-59) Qualified Code(s): N17.9 - Acute kidney failure, unspecified; N18.31 - Chronic kidney disease, stage 3a (9) S/P cystoscopy with ureteral stent placement: (10) Mass of right breast: (11) Hyperuricemia: PLAN: Plan 1. Continue therapy 2. Increase lisinopril to 30 mg p.o. every morning. 3. Decrease at bedtime U-500 to 40 units. 4. Discontinue duloxetine 5. Discontinue Keflex 6. The lunchtime sugar was 167 and by 3 PM it was down to 104 and will likely be hypoglycemic before supper. Will decrease the lunchtime insulin to 20 units and continue to check Accu-Cheks 4 times daily. 7. We discussed toileting aids and she has picked out the one she wants. Her went to pick it up however [facility] was closed when he arrived. She will have him obtain the toileting aide so that we can practice with her while she is on rehab. I suggested that while she is home alone she may want to consider maybe wearing a house stress so that she would not have to don her pants after toileting. 8. She is doing very well and the only thing we really need to work on is toileting now. If she is able to accomplish this then she could go home at discharge from rehab. 9. Will have the dietitian work with her to generate 7 meal plans so that she will have a menu of what to prepare to eat for the next week. From the menu list will need to generate a grocery list. 10. Have nursing check the blood pressure 4 times daily while awake while we are adjusting the antihypertensive regimen.
[2023-11-09] MEDS: Lisinopril 10 MG Tablet PO (11:05)
[2023-11-09 11:29] LABS: Bedside Glucose 167 mg/dL (74-106)
[2023-11-09] MEDS: Insulin U-500 UNITS/ML PEN 30 UNITS SC (12:10)
--- NOTE | 2023-11-09 14:00 | NURSING ---
message left with Dr Kent's office to see if luisana can be removed while pt is on rehab and to reschedule 11/11 appt
--- NOTE | 2023-11-09 16:08 | CASEMGMT ---
Social Work IDT met with patient for Team Meeting. Discussed patient's progress in PT/OT/SN. Educated to [facility] benefits and NRD being 11/16/23. IDT is recommending patient return home with C PT/OT/SW at DC vs going to SNF. Pt seemed suprised but was agreeable since she has another week of coverage at . Pt to have bring in adaptive equipment for toileting so she can practice this. PT stated she would like [facility] through [employer] as she has used them in the past. Pt will also need a wheeled walker at DC. SW to continue follow and assist with DC planning. Kiki BAYW
[2023-11-09 17:10] LABS: Bedside Glucose 78 mg/dL (74-106)
[2023-11-09 17:43] VITALS: BP 148/72; PULSE 82
[2023-11-09] MEDS: Pregabalin 75 MG Capsule 150 MG PO (21:50)
[2023-11-09] MEDS: Atorvastatin Calcium 10 MG Tablet PO (21:58)
[2023-11-09] MEDS: Senna/Docusate Sodium 1 Tablet 2 TABLET PO (21:59)
[2023-11-09] MEDS: Insulin U-500 UNITS/ML PEN 40 UNITS SC (21:59)
[2023-11-09 22:00] VITALS: BP 153/73; PULSE 73; PULSE 78; RESP 16; TEMP 36.6; O2SAT 96
[2023-11-09] MEDS: 0.9% Saline Lock 10 ML Syringe IV (22:04)
[2023-11-09 22:42] LABS: Bedside Glucose 103 mg/dL (74-106)
[2023-11-10 02:09] LABS: Bedside Glucose 85 mg/dL (74-106)
[2023-11-10 06:00] VITALS: BP 147/81; PULSE 76; RESP 17; TEMP 37.2; O2SAT 96
[2023-11-10] MEDS: Levothyroxine 137 MCG Tablet PO (06:49)
[2023-11-10] MEDS: Arthritis Pain Compound 60 CLICK TUBE TOPICAL ×3 (06:49→21:59)
[2023-11-10] MEDS: Enoxaparin 40 MG/0.4 ML Syringe SC (06:49)
[2023-11-10 07:21] LABS: Bedside Glucose 117 mg/dL (74-106)
[2023-11-10] MEDS: Lisinopril 10 MG Tablet 30 MG PO (07:28)
[2023-11-10] MEDS: Pregabalin 50 MG Capsule 100 MG PO ×2 (07:28→16:00)
[2023-11-10] MEDS: Insulin U-500 UNITS/ML PEN 145 UNITS SC (07:28)
[2023-11-10] MEDS: Aspirin E.C. 81 MG Tablet PO (08:05)
[2023-11-10] MEDS: Psyllium 1 PACKET 2 PACKET PO (08:05)
[2023-11-10] MEDS: Multivitamins,Therapeutic Tablet 1 TABLET PO (08:05)
[2023-11-10] MEDS: Juven (unflavored) Packet 1 PACKET PO ×2 (08:05→15:59)
[2023-11-10] MEDS: Vitamin E 400 UNITS Capsule PO (08:05)
[2023-11-10 08:06] VITALS: PULSE 76
[2023-11-10] MEDS: buPROPion (XL) 300 MG TABLET.XL PO (08:06)
[2023-11-10] MEDS: Cyanocobalamin 500 MCG Tablet 1000 MCG PO (08:06)
[2023-11-10] MEDS: Loratadine 10 MG Tablet PO (08:06)
[2023-11-10] MEDS: Pantoprazole Sodium 40 MG Tablet PO (08:06)
[2023-11-10] MEDS: Hydroxychloroquine 200 MG Tablet PO ×2 (08:06→21:51)
[2023-11-10] MEDS: Ascorbic Acid 500 MG Tablet 1000 MG PO (08:06)
[2023-11-10] MEDS: Ferrous Sulfate 325 MG Tablet PO (08:06)
[2023-11-10] MEDS: Calcium (Elemental) 500 MG Tablet PO (08:06)
[2023-11-10] MEDS: Metoprolol(XL)Succ 100 MG Tablet PO (08:06)
--- NOTE | 2023-11-10 10:23 | PCM.PROGNOTE ---
Subjective Subjective Afebrile VSS-blood pressures over the past 24 hours have ranged from 147/81 to 153/81. Lisinopril was increased to 30 mg daily yesterday. Heart rate is within normal limits. Maintaining appropriate oxygen saturation on RA Oral intake - FOOD good FLUIDS good fluid balance yesterday was . Discussed with nursing - no problems that need addressed. Had a BS of 103 at HS and a snack was provided. Had a snack of 1 package of tata crackers with peanut butter at 0145 when her dexcom awoke her with a BS of 73....our accucheck was 85. Lunch U-500 was decreased yesterday but, AFTER she had already had the scheduled 30 unit dose. Today she will get 20 units. Supper sugars have been consistently low. She got 40 units of U-500 at HS but, If the BS was not low at supper I suspect she would not get hypoglycemic at night. Has not been requiring any Lispro with meals. Reviewed the THERAPY notes Medication list reviewed. Has not been seen by the cyber reverse engineer since 10/30/23. Needs more education and a list of meal plans for 1 week to go home with so that she can get groceries and continue eating healthy meals. Stone analysis is still pending. She has never had gout but, she has hyperuricemia. No complaints today. Denies CP, SOB, D/C, N/V, dysuria, CORNEJO and calf tenderness. Objective Data Objective Data Vital Signs: Vital Signs Temp Pulse Resp BP Pulse Ox O2 Del Method O2 Flow Rate 98.9 F 76 17 147/81 H 96 Room Air 15 11/10/23 06:00 11/10/23 08:06 11/10/23 06:00 11/10/23 06:00 11/10/23 06:00 11/10/23 06:00 11/05/23 13:40 Oxygen Flow Rate (L/min) 15 Oxygen Delivery Method Room Air Weight: 342 lb 3.2 oz Body Mass Index (BMI) 55.0 Intake & Output: Intake and Output for Last 24 Hours 11/08/23 11/09/23 11/10/23 23:59 23:59 23:59 Intake Total 5580 / 5820 3660 / 3660 1550 / 1550 Output Total 5250 / 6050 5600 / 5600 2170 / 2170 Balance 330 / -230 -1940 / -1940 -620 / -620 Lab / Micro Data 11/06/23 07:53 11/07/23 07:25 Labs: Laboratory Results - last 24 hr 11/09/23 11:02: POC Glucose 167 H 11/09/23 16:51: POC Glucose 78 11/09/23 21:58: POC Glucose 103 11/10/23 01:43: POC Glucose 85 11/10/23 06:53: POC Glucose 117 H Physical Exam Const alert, oriented x3 and no apparent distress General Appearance: cooperative HEENT Mouth: dry mucous membranes Resp clear to auscultation bilaterally Auscultation: diminished lung sounds Cardio regular rate and regular rhythm GI normal to inspection, nondistended, normoactive bowel sounds, soft to palpation and non-tender Extremity no calf tenderness General Extremity: Negative for edema Psych thought process normal, cooperative and affect normal Assessment & Plan Assessment/Plan (1) Physical debility: (2) History of right below knee amputation: (3) Charcot ankle: QUALIFIERS: Laterality: right Qualified Code(s): M14.671 - Charcot's joint, right ankle and foot (4) Acute blood loss anemia: (5) Diabetes mellitus, type 2: QUALIFIERS: Diabetes mellitus termite control representative insulin use: with termite control representative use Diabetes mellitus complication status: with kidney complications Chronic kidney disease stage: stage 3 (moderate) Chronic kidney disease stage 3 subtype: stage 3a (GFR 45-59) (6) Chronic renal failure (CRF), stage 3a: (7) Depression: QUALIFIERS: Depression Type: reactive depression Qualified Code(s): F32.9 - Major depressive disorder, single episode, unspecified (8) Acute on chronic renal failure: QUALIFIERS: Acute renal failure type: unspecified Chronic kidney disease stage: stage 3 (moderate) Chronic kidney disease stage 3 subtype: stage 3a (GFR 45-59) Qualified Code(s): N17.9 - Acute kidney failure, unspecified; N18.31 - Chronic kidney disease, stage 3a (9) S/P cystoscopy with ureteral stent placement: (10) Mass of right breast: (11) Hyperuricemia: PLAN: Plan 1. Continue therapy 2. CBC without differential and BMP on the a.m. 3. No changes to the insulin regimen today. 4. Add a low purine restriction to the current diet. 5. the cyber reverse engineer presented her with several meal plans today and also gave her a list of foods high in purine. 6. We discussed the high UA and starting Allopurinol if the stone is uric acid. Await the results of the stone analysis. We also discussed the BS's and pointed out that exercise and a healthy diet contribute greatly to controlling BS's. Also not having chronic inflammation from the Charcot foot and LE ulcers helps to lower the BS's. She is trying to think about how she is feeling when she eats and trying to establish what it feels like to be satisfied and stop eating rather than always cleaning her plate. Will likely nee to send home with Lispro and a sliding scale at [place] as she learns how to count carbs and not eat until she is bloated and uncomfortable. Charges/Coding Visit Charges Inpatient E&M: 68538 Subs Hosp L1
[2023-11-10 12:00] VITALS: BP 116/46; PULSE 76; RESP 16
[2023-11-10 12:33] LABS: Bedside Glucose 91 mg/dL (74-106)
[2023-11-10] MEDS: Insulin U-500 UNITS/ML PEN 20 UNITS SC (13:06)
[2023-11-10] MEDS: Insulin Lispro 100 UNIT/ML INSULN.PEN SC (16:04)
[2023-11-10 16:46] LABS: Bedside Glucose 205 mg/dL (74-106)
[2023-11-10 17:57] VITALS: BP 108/44; PULSE 73
[2023-11-10] MEDS: Atorvastatin Calcium 10 MG Tablet PO (21:51)
[2023-11-10] MEDS: Pregabalin 75 MG Capsule 150 MG PO (21:51)
[2023-11-10] MEDS: Senna/Docusate Sodium 1 Tablet 2 TABLET PO (21:51)
[2023-11-10] MEDS: tiZANidine HCl 2 MG Tablet PO (21:54)
[2023-11-10] MEDS: Insulin U-500 UNITS/ML PEN 40 UNITS SC (21:55)
[2023-11-10 22:00] VITALS: BP 155/46; PULSE 70; RESP 18; TEMP 36.5; O2SAT 97
[2023-11-10] MEDS: 0.9% Saline Lock 10 ML Syringe IV (22:30)
--- NOTE | 2023-11-10 23:46 | NURSING ---
Reviewed and agree with Yaz VU, documentation and assessment charting.
[2023-11-11 00:31] LABS: Bedside Glucose 167 mg/dL (74-106)
[2023-11-11 05:56] LABS: Hematocrit 35.4 % (37-47); Hemoglobin 11.7 g/dL (12.0-15.0); Mean Corp Hgb Conc 33.1 g/dL (32-36); Mean Corpuscular Hgb 31.6 pg (27.0-32.0); Mean Corpuscular Volume 95.7 fL (81-99); Mean Platelet Vol. 9.8 fl (6.2-12.0); Platelet Count 227 K/mm3 (150-450); RBC Distribution Width CV 14.4 % (11.6-14.6); RBC Distribution Width SD 49.8 fl (35.1-43.9); White Blood Count 9.2 K/mm3 (4.4-11.0)
[2023-11-11 06:00] VITALS: BP 115/53; PULSE 64; RESP 16; TEMP 36.4; O2SAT 99
[2023-11-11] MEDS: Lisinopril 10 MG Tablet 30 MG PO (06:15)
[2023-11-11] MEDS: Enoxaparin 40 MG/0.4 ML Syringe SC (06:15)
[2023-11-11] MEDS: Levothyroxine 137 MCG Tablet PO (06:15)
[2023-11-11] MEDS: Arthritis Pain Compound 60 CLICK TUBE TOPICAL ×2 (06:15→21:42)
[2023-11-11] MEDS: Pregabalin 50 MG Capsule 100 MG PO ×2 (06:17→16:48)
[2023-11-11 06:22] LABS: Anion Gap 6 (5-15); BUN 39 mg/dL (7-18); BUN/Creat Ratio 29.5 RATIO (10-20); Calcium,Total 9.5 mg/dL (8.5-10.1); Chloride 104 mmol/L (98-107); Creatinine, Serum 1.32 mg/dL (0.55-1.02); EST Glomerular Filtration Rate 43 mL/min (>60); Est Glom Filt Rate - Afr Amer 52 mL/min (>60); Estimated Creatinine Clearance 68.13 ml/min; Glucose 157 mg/dL (74-106); Potassium 4.3 mmol/L (3.5-5.1); Sodium Level 139 mmol/L (136-145)
[2023-11-11 06:37] LABS: Bedside Glucose 156 mg/dL (74-106)
[2023-11-11] MEDS: Juven (unflavored) Packet 1 PACKET PO ×2 (08:38→16:48)
[2023-11-11] MEDS: Psyllium 1 PACKET 2 PACKET PO (08:39)
[2023-11-11] MEDS: Vitamin E 400 UNITS Capsule PO (08:39)
[2023-11-11] MEDS: Pantoprazole Sodium 40 MG Tablet PO (08:39)
[2023-11-11] MEDS: buPROPion (XL) 300 MG TABLET.XL PO (08:39)
[2023-11-11] MEDS: Calcium (Elemental) 500 MG Tablet PO (08:39)
[2023-11-11] MEDS: Multivitamins,Therapeutic Tablet 1 TABLET PO (08:39)
[2023-11-11] MEDS: Ferrous Sulfate 325 MG Tablet PO (08:39)
[2023-11-11 08:40] VITALS: PULSE 64
[2023-11-11] MEDS: Insulin U-500 UNITS/ML PEN 145 UNITS SC (08:40)
[2023-11-11] MEDS: Aspirin E.C. 81 MG Tablet PO (08:40)
[2023-11-11] MEDS: Metoprolol(XL)Succ 100 MG Tablet PO (08:40)
[2023-11-11] MEDS: Loratadine 10 MG Tablet PO (08:41)
[2023-11-11] MEDS: Cyanocobalamin 500 MCG Tablet 1000 MCG PO (08:42)
[2023-11-11] MEDS: Hydroxychloroquine 200 MG Tablet PO ×2 (08:42→21:38)
[2023-11-11] MEDS: Ascorbic Acid 500 MG Tablet 1000 MG PO (08:42)
--- NOTE | 2023-11-11 10:11 | PCM.PROGNOTE ---
Subjective Subjective Afebrile VSS Maintaining appropriate oxygen saturation on RA Oral intake - FOOD good FLUIDS good fluid intake but she continues to put out more urine than she is taking in. Fluid balance yesterday was -1610 and her fluid intake was 3510 orally Weight is down 10 pounds since admission. The blood sugar record was reviewed. Blood sugar at lunchtime yesterday was 91 and the supper blood sugar was 205 (she ate a late lunch yesterday). The at bedtime blood sugar was 167 and the blood sugar this morning was 156. Discussed with nursing - night nursing reports that the urine is dark and has a strong odor. Reviewed the THERAPY notes Medication list reviewed. Stone analysis is still pending. White blood cell count this morning was 9.2. Hemoglobin is 11.7 and stable and platelets are within normal limits. Sodium is 139 and potassium is 4.3. The BUN is 39 with a creatinine of 1.32 and a BUN/creatinine ratio of 29.5. We got a report on the stone she had in 2013 and it was 80% uric acid and 20 % calcium. Current stone analysis is still pending. Flor denies lightheadedness, vertigo, CP, SOB at rest, SOB with exertion, cough, nausea, vomiting, abd pain, diarrhea, constipation, dysuria, calf pain and ankle swelling. She also denies cephalgia and dry eyes. Tolerating the Wellbutrin with no adverse side effects. Objective Data Objective Data Vital Signs: Vital Signs Temp Pulse Resp BP Pulse Ox O2 Del Method O2 Flow Rate 97.6 F L 64 16 115/53 L 99 Room Air 15 11/11/23 06:00 11/11/23 08:40 11/11/23 06:00 11/11/23 06:00 11/11/23 06:00 11/11/23 06:00 11/05/23 13:40 Oxygen Flow Rate (L/min) 15 Oxygen Delivery Method Room Air Weight: 342 lb 3.2 oz Body Mass Index (BMI) 55.0 Intake & Output: Intake and Output for Last 24 Hours 11/09/23 11/10/23 11/11/23 23:59 23:59 23:59 Intake Total 3660 / 3660 3510 / 3510 300 / 300 Output Total 5600 / 5600 5120 / 5120 1100 / 1100 Balance -1940 / -1940 -1610 / -1610 -800 / -800 Lab / Micro Data 11/11/23 05:32 11/11/23 05:32 Labs: Laboratory Results - last 24 hr 11/10/23 12:15: POC Glucose 91 11/10/23 16:02: POC Glucose 205 H 11/10/23 21:49: POC Glucose 167 H 11/11/23 05:32: WBC 9.2, RBC 3.70 L, Hgb 11.7 L, Hct 35.4 L, MCV 95.7, MCH 31.6, MCHC 33.1, RDW Std Deviation 49.8 H, RDW Coeff of Roland 14.4, Plt Count 227, MPV 9.8, Sodium 139, Potassium 4.3, Chloride 104, Carbon Dioxide 29.0, Anion Gap 6, BUN 39 H, Creatinine 1.32 H, Estim Creat Clear Calc 68.13, Est GFR (MDRD) Af Amer 52 L, Est GFR (MDRD) Non-Af 43 L, BUN/Creatinine Ratio 29.5 H, Glucose 157 H, Calcium 9.5 11/11/23 06:06: POC Glucose 156 H Physical Exam Const alert and oriented x3 Constitutional Narrative: Lying flat in bed with no shortness of breath. She is not tachypneic. She does not appear to be in any pain and she is calm. General Appearance: cooperative Orientation / Consciousness: Negative for confused Nutritional Appearance: morbidly obese HEENT moist oral mucous membranes Mouth: dry mucous membranes Eyes PERRL, EOMs intact bilaterally, conjunctivae normal and no scleral icterus Neck no lymphadenopathy, supple, no JVD and no carotid bruits Neck Narrative: short thick neck Chest Chest: symmetrical chest wall rise Resp clear to auscultation bilaterally Resp Narrative: no cough and no tachypnea. No conversational dyspnea. Effort and Inspection: Negative for tachypneic, respiratory distress or labored Auscultation: diminished lung sounds Cardio regular rate, regular rhythm and no gallops Cardio Narrative: Heart sounds are distant. GI normal to inspection, nondistended, normoactive bowel sounds and soft to palpation GI Narrative: having regular BM's Extremity no calf tenderness Extremity Narrative: no significant peripheral edema. General Extremity: Negative for edema Skin no jaundice Skin Narrative: No rashes, no skin breakdown. See extremity exam fo description of the R BKA incision. Rashes: no rashes Wound Narrative: The incision is intact with no dehiscence, no purulent discharge and no sherif-incisional erythema. There was no discharge on the dressing when we removed it today. We were able to put on a smaller food service kitchen supervisor sock as the edema is improving. Neuro oriented x3, CN's II-XII intact bilaterally and no focal motor deficits Neuro Narrative: Decreased sensation in the hands and distal LLE. Psych thought process normal, cooperative and affect normal Psych Narrative: tearful today. She was supposed to be back to work this week She has always made her work a priority and not herself. She is retiring in December. Does not know what she will do with her time......she is afraid she will get home and sit. Does not really have any hobbies. Likes to play cards. Does not want her to be inconvenienced and having to drive her everywhere. She is amenable to getting some counselling post DC and learn how to cope with the disability and make herself a priority. She is sleeping well at night and has had no adverse reactions to Wellbutrin. Appearance: grossly normal and appropriate Attitude: calm and engaged Thought Content: normal thought content Attention / Concentration: attention grossly intact Memory / Cognition: memory grossly intact Assessment & Plan Assessment/Plan (1) Physical debility: (2) History of right below knee amputation: (3) Charcot ankle: QUALIFIERS: Laterality: right Qualified Code(s): M14.671 - Charcot's joint, right ankle and foot (4) Acute blood loss anemia: (5) Diabetes mellitus, type 2: QUALIFIERS: Diabetes mellitus oysterman insulin use: with long-term use Diabetes mellitus complication status: with kidney complications Chronic kidney disease stage: stage 3 (moderate) Chronic kidney disease stage 3 subtype: stage 3a (GFR 45-59) (6) Chronic renal failure (CRF), stage 3a: (7) Depression: QUALIFIERS: Depression Type: reactive depression Qualified Code(s): F32.9 - Major depressive disorder, single episode, unspecified (8) Acute on chronic renal failure: QUALIFIERS: Acute renal failure type: unspecified Chronic kidney disease stage: stage 3 (moderate) Chronic kidney disease stage 3 subtype: stage 3a (GFR 45-59) Qualified Code(s): N17.9 - Acute kidney failure, unspecified; N18.31 - Chronic kidney disease, stage 3a (9) S/P cystoscopy with ureteral stent placement: (10) Mass of right breast: (11) Hyperuricemia: (12) Polyuria: PLAN: Plan 1. Continue therapy. She must be able to manage toileting and toilet transfer without assist to be able to go home. Now that her has purchased a toileting aid recommended by OT we can proceed with training her to use it. 2. Unclear whether she has a solute or a water diuresis. Urine output exceeds 3 L/day. She is in negative fluid balance every day. BS's are under good control.......I do not think this is contributing to the diuresis. She did not have BL urinary tract obstruction so I do not think that is the cause. Nephrogenic DI? Will check urine osmolality, urine sodium and urine urea in the AM along with a BMP. If she has a water diuresis will consider a water deprivation test. Charges/Coding Visit Charges Inpatient E&M: 27704 [facility] Hosp L1
[2023-11-11 12:00] VITALS: BP 104/52; PULSE 70
[2023-11-11] MEDS: Insulin U-500 UNITS/ML PEN 20 UNITS SC (12:11)
[2023-11-11 12:23] LABS: Bedside Glucose 124 mg/dL (74-106)
[2023-11-11 16:51] LABS: Bedside Glucose 140 mg/dL (74-106)
[2023-11-11 17:30] VITALS: BP 123/64; PULSE 68; RESP 17; TEMP 36.6; O2SAT 97
[2023-11-11 21:21] LABS: Bedside Glucose 211 mg/dL (74-106)
[2023-11-11] MEDS: Atorvastatin Calcium 10 MG Tablet PO (21:38)
[2023-11-11] MEDS: Senna/Docusate Sodium 1 Tablet 2 TABLET PO (21:38)
[2023-11-11] MEDS: Insulin U-500 UNITS/ML PEN 40 UNITS SC (21:38)
[2023-11-11] MEDS: Pregabalin 75 MG Capsule 150 MG PO (21:39)
[2023-11-11] MEDS: tiZANidine HCl 2 MG Tablet PO (21:39)
[2023-11-11 22:00] VITALS: BP 150/68; PULSE 70; RESP 16; TEMP 36.7; O2SAT 97
[2023-11-11] MEDS: 0.9% Saline Lock 10 ML Syringe IV (22:18)
[2023-11-12] MEDS: Enoxaparin 40 MG/0.4 ML Syringe SC (05:39)
[2023-11-12] MEDS: Levothyroxine 137 MCG Tablet PO (05:39)
[2023-11-12] MEDS: Arthritis Pain Compound 60 CLICK TUBE TOPICAL ×2 (05:39→22:39)
[2023-11-12 06:00] VITALS: BP 112/57; PULSE 65
[2023-11-12] MEDS: Insulin U-500 UNITS/ML PEN 145 UNITS SC (06:46)
[2023-11-12] MEDS: Insulin Lispro 100 UNIT/ML INSULN.PEN SC (08:43)
[2023-11-12] MEDS: Ferrous Sulfate 325 MG Tablet PO (08:45)
[2023-11-12] MEDS: Pregabalin 50 MG Capsule 100 MG PO ×2 (08:45→17:24)
[2023-11-12] MEDS: Multivitamins,Therapeutic Tablet 1 TABLET PO (08:45)
[2023-11-12] MEDS: Calcium (Elemental) 500 MG Tablet PO (08:45)
[2023-11-12] MEDS: Juven (unflavored) Packet 1 PACKET PO ×2 (08:45→17:24)
[2023-11-12] MEDS: Lisinopril 10 MG Tablet 30 MG PO (08:45)
[2023-11-12] MEDS: Vitamin E 400 UNITS Capsule PO (08:45)
[2023-11-12] MEDS: Loratadine 10 MG Tablet PO (10:12)
[2023-11-12] MEDS: Aspirin E.C. 81 MG Tablet PO (10:12)
[2023-11-12] MEDS: Psyllium 1 PACKET 2 PACKET PO (10:12)
[2023-11-12] MEDS: Cyanocobalamin 500 MCG Tablet 1000 MCG PO (10:13)
[2023-11-12] MEDS: Ascorbic Acid 500 MG Tablet 1000 MG PO (10:13)
[2023-11-12] MEDS: Pantoprazole Sodium 40 MG Tablet PO (10:13)
[2023-11-12] MEDS: Hydroxychloroquine 200 MG Tablet PO ×2 (10:13→22:40)
[2023-11-12 10:14] VITALS: PULSE 74
[2023-11-12] MEDS: buPROPion (XL) 300 MG TABLET.XL PO (10:14)
[2023-11-12] MEDS: Metoprolol(XL)Succ 100 MG Tablet PO (10:14)
[2023-11-12] MEDS: Nystatin Powder 15gm Bottle 1 APPLIC TOPICAL (10:17)
[2023-11-12 11:18] LABS: Anion Gap 6 (5-15); BUN 44 mg/dL (7-18); BUN/Creat Ratio 32.8 RATIO (10-20); Calcium,Total 10.1 mg/dL (8.5-10.1); Chloride 103 mmol/L (98-107); Creatinine, Serum 1.34 mg/dL (0.55-1.02); EST Glomerular Filtration Rate 43 mL/min (>60); Est Glom Filt Rate - Afr Amer 52 mL/min (>60); Estimated Creatinine Clearance 67.12 ml/min; Glucose 223 mg/dL (74-106); Potassium 4.5 mmol/L (3.5-5.1); Sodium Level 135 mmol/L (136-145)
--- NOTE | 2023-11-12 11:19 | PCM.PROGNOTE ---
Subjective Subjective Afebrile VSS Maintaining appropriate oxygen saturation on RA Oral intake - FOOD good FLUIDS excellent however she is still in negative fluid balance and is putting out greater than 3 L of urine daily which is consistent with polyuria. Discussed with nursing - no problems that need addressed Reviewed the THERAPY notes Medication list reviewed. Sleeping better the past 2 nights since she is not alarming for low blood sugars. Follow up with Dr. Morales has been rescheduled for Next at 1:45. Will plan on DC that morning so she can attend that appt. BMP today shows a sodium which is low at 135 and a normal potassium. The BUN is up to 44 from 39 yesterday and the creatinine is 1.34 which is up from 1.15 on 11/07/2023. Calcium is high normal at 10.1.....albumin is pending. I suspect the calcium is high due to IV volume depletion. Urine has not been obtained for the urine osmolality, sodium, creatinine and urea yet. Denies cephalgia, constipation, dry eyes. She is tolerating the Wellbutrin with no adverse reactions. She had 1 crying jag with her a few days ago but, she has a lot on her plate. she is sleeping well when she is not alarming for low blood sugars. She has a good appetite and she is cooperative with everything the therapists ask of her. She is motivated to get better and get home. Depression is adequately treated at this time with Wellbutrin. She is learning a lot more about the effect of depression on patients with a food addiction and how difficult it is to control appetite/eating when you are depressed. We discussed the Sx of uncontrolled depression again. She is also learning what it feels like to be satisfied at a meal rather than eating until the plate is clean. Objective Data Objective Data Vital Signs: Vital Signs Temp Pulse Resp BP Pulse Ox O2 Del Method O2 Flow Rate 98.0 F 74 16 112/57 L 97 Room Air 15 11/11/23 22:00 11/12/23 10:14 11/11/23 22:00 11/12/23 06:00 11/11/23 22:00 11/11/23 22:00 11/05/23 13:40 Oxygen Flow Rate (L/min) 15 Oxygen Delivery Method Room Air Weight: 342 lb 3.2 oz Body Mass Index (BMI) 55.0 Intake & Output: Intake and Output for Last 24 Hours 11/10/23 11/11/23 11/12/23 23:59 23:59 23:59 Intake Total 3510 / 3510 2320 / 2320 660 / 660 Output Total 5120 / 5120 5250 / 5250 1900 / 1900 Balance -1610 / -1610 -2930 / -2930 -1240 / -1240 Lab / Micro Data 11/11/23 05:32 11/12/23 10:27 Labs: Laboratory Results - last 24 hr 11/11/23 12:02: POC Glucose 124 H 11/11/23 16:30: POC Glucose 140 H 11/11/23 21:02: POC Glucose 211 H 11/12/23 10:27: Sodium 135 L, Potassium 4.5, Chloride 103, Carbon Dioxide 26.0, Anion Gap 6, BUN 44 H, Creatinine 1.34 H, Estim Creat Clear Calc 67.12, Est GFR (MDRD) Af Amer 52 L, Est GFR (MDRD) Non-Af 43 L, BUN/Creatinine Ratio 32.8 H, Glucose 223 H, Calcium 10.1 Physical Exam Const alert and oriented x3 General Appearance: cooperative HEENT Mouth: dry mucous membranes Resp clear to auscultation bilaterally Resp Narrative: no cough and no tachypnea. No conversational dyspnea. Effort and Inspection: Negative for tachypneic Auscultation: diminished lung sounds Cardio regular rate, regular rhythm and no gallops Cardio Narrative: Heart sounds are distant. GI normal to inspection, nondistended, normoactive bowel sounds and soft to palpation GI Narrative: having regular BM's Extremity no calf tenderness Extremity Narrative: no significant peripheral edema. Skin Skin Narrative: No rashes, no skin breakdown. See extremity exam fo description of the R BKA incision. Rashes: no rashes Wound Narrative: The incision is intact with no dehiscence, no purulent discharge and no sherif-incisional erythema. There was no discharge on the dressing when we removed it today. We were able to put on a smaller quality technician sock as the edema is improving. Assessment & Plan Assessment/Plan (1) Physical debility: (2) History of right below knee amputation: (3) Charcot ankle: QUALIFIERS: Laterality: right Qualified Code(s): M14.671 - Charcot's joint, right ankle and foot (4) Acute blood loss anemia: (5) Diabetes mellitus, type 2: QUALIFIERS: Diabetes mellitus skilled nursing insulin use: with skilled nursing use Diabetes mellitus complication status: with kidney complications Chronic kidney disease stage: stage 3 (moderate) Chronic kidney disease stage 3 subtype: stage 3a (GFR 45-59) (6) Chronic renal failure (CRF), stage 3a: (7) Depression: QUALIFIERS: Depression Type: reactive depression Qualified Code(s): F32.9 - Major depressive disorder, single episode, unspecified (8) Acute on chronic renal failure: QUALIFIERS: Acute renal failure type: unspecified Chronic kidney disease stage: stage 3 (moderate) Chronic kidney disease stage 3 subtype: stage 3a (GFR 45-59) Qualified Code(s): N17.9 - Acute kidney failure, unspecified; N18.31 - Chronic kidney disease, stage 3a (9) S/P cystoscopy with ureteral stent placement: (10) Mass of right breast: (11) Hyperuricemia: (12) Polyuria: PLAN: Plan 1. Continue therapy. 2. I discussed the polyuria with endocrinology. She likely does not have DI (central or nephrogenic) because the sodium is not elevated. The polyuria is likely due to CRF, hydration prior to the stone extraction and relief of UT obstruction. Recommendation is to ride it out. The urine OP is decreasing and she has no hypotension, tachycardia or c/o lightheadedness. 3. Recheck the BMP in a few days and hold off on any IV fluids. 4. Stone analysis is still pending. Will hold off on Allopurinol until urine OP/polyuria stabilizes and she is not IV depleted. Charges/Coding Visit Charges Inpatient E&M: 02597 Subs Hosp L1
[2023-11-12 12:00] VITALS: BP 117/59; PULSE 85
[2023-11-12 12:21] LABS: Albumin, Serum 3.6 g/dL (3.2-5.0)
[2023-11-12] MEDS: Insulin U-500 UNITS/ML PEN 10 UNITS SC (12:27)
[2023-11-12 13:02] LABS: Urea Nitrogen, Urine 423 mg/dL (NO RANGE EST.); Urine Sodium 27 mmol/L (Not Establ.)
[2023-11-12 13:51] LABS: Bedside Glucose 198 mg/dL (74-106)
[2023-11-12 13:51] LABS: Bedside Glucose 175 mg/dL (74-106)
[2023-11-12 14:31] LABS: Osmolality, Urine 256 mOsm/KG
[2023-11-12 16:54] LABS: Bedside Glucose 72 mg/dL (74-106)
[2023-11-12] MEDS: 0.9% Saline Lock 10 ML Syringe IV (17:27)
[2023-11-12 18:00] VITALS: BP 119/61; PULSE 69; RESP 16; TEMP 36.8; O2SAT 96
[2023-11-12 21:42] VITALS: BP 106/67; PULSE 100; RESP 16; TEMP 36.8; O2SAT 95
[2023-11-12] MEDS: Pregabalin 75 MG Capsule 150 MG PO (22:39)
[2023-11-12] MEDS: Senna/Docusate Sodium 1 Tablet 2 TABLET PO (22:40)
[2023-11-12] MEDS: Atorvastatin Calcium 10 MG Tablet PO (22:40)
[2023-11-12] MEDS: Insulin U-500 UNITS/ML PEN 40 UNITS SC (22:43)
[2023-11-12 22:59] LABS: Bedside Glucose 220 mg/dL (74-106)
[2023-11-13 06:55] VITALS: BP 114/61; PULSE 73; RESP 18; TEMP 36.6; O2SAT 95
[2023-11-13] MEDS: Arthritis Pain Compound 60 CLICK TUBE TOPICAL ×3 (07:04→21:42)
[2023-11-13] MEDS: Enoxaparin 40 MG/0.4 ML Syringe SC (07:05)
[2023-11-13] MEDS: Levothyroxine 137 MCG Tablet PO (07:06)
[2023-11-13 07:27] LABS: Bedside Glucose 119 mg/dL (74-106)
[2023-11-13] MEDS: Insulin U-500 UNITS/ML PEN 145 UNITS SC (07:28)
[2023-11-13] MEDS: Juven (unflavored) Packet 1 PACKET PO (07:57)
[2023-11-13] MEDS: Pregabalin 50 MG Capsule 100 MG PO ×2 (07:58→16:49)
[2023-11-13] MEDS: Ferrous Sulfate 325 MG Tablet PO (08:00)
[2023-11-13] MEDS: Lisinopril 10 MG Tablet 30 MG PO (08:00)
[2023-11-13] MEDS: Multivitamins,Therapeutic Tablet 1 TABLET PO (08:00)
[2023-11-13] MEDS: Calcium (Elemental) 500 MG Tablet PO (08:00)
[2023-11-13] MEDS: Pantoprazole Sodium 40 MG Tablet PO (08:01)
[2023-11-13] MEDS: Aspirin E.C. 81 MG Tablet PO (08:01)
[2023-11-13] MEDS: Senna/Docusate Sodium 1 Tablet 2 TABLET PO ×2 (08:01→21:45)
[2023-11-13] MEDS: Loratadine 10 MG Tablet PO (08:01)
[2023-11-13] MEDS: Vitamin E 400 UNITS Capsule PO (08:01)
[2023-11-13] MEDS: Ascorbic Acid 500 MG Tablet 1000 MG PO (08:02)
[2023-11-13] MEDS: Cyanocobalamin 500 MCG Tablet 1000 MCG PO (08:02)
[2023-11-13 08:08] VITALS: PULSE 78
[2023-11-13] MEDS: Metoprolol(XL)Succ 100 MG Tablet PO (08:08)
[2023-11-13] MEDS: Hydroxychloroquine 200 MG Tablet PO ×2 (08:08→21:44)
[2023-11-13] MEDS: buPROPion (XL) 300 MG TABLET.XL PO (08:08)
[2023-11-13] MEDS: Nystatin Powder 15gm Bottle 1 APPLIC TOPICAL (08:12)
[2023-11-13] MEDS: 0.9% Saline Lock 10 ML Syringe IV ×2 (08:16→21:03)
[2023-11-13 09:00] VITALS: BMI 54.2
[2023-11-13 11:24] LABS: Bedside Glucose 136 mg/dL (74-106)
[2023-11-13] MEDS: Psyllium 1 PACKET 2 PACKET PO (12:09)
[2023-11-13] MEDS: Insulin U-500 UNITS/ML PEN 10 UNITS SC (12:12)
[2023-11-13 12:18] VITALS: BP 111/53; PULSE 107
[2023-11-13 16:27] LABS: Bedside Glucose 80 mg/dL (74-106)
[2023-11-13 18:00] VITALS: BP 99/53; PULSE 74
[2023-11-13] MEDS: Insulin U-500 UNITS/ML PEN 40 UNITS SC (21:43)
[2023-11-13] MEDS: Pregabalin 75 MG Capsule 150 MG PO (21:43)
[2023-11-13] MEDS: Atorvastatin Calcium 10 MG Tablet PO (21:44)
[2023-11-13 21:56] LABS: Bedside Glucose 112 mg/dL (74-106)
[2023-11-13 22:00] VITALS: BP 122/58; PULSE 72
--- NOTE | 2023-11-14 03:59 | NURSING ---
4-19; Ate small dinner. States ate chicken and potatoes. Given yogurt and pb, crackers and ginerale for snack. Bs 112 this anjelica. Pt still c/o abd not feeling well, states she feels like a bubble in stomach. Denies pain. Deniesoes intervention, just asking to rest. Will continue to monitor.
[2023-11-14 06:00] VITALS: BP 130/73; PULSE 76; RESP 17; TEMP 36.2; O2SAT 97
[2023-11-14] MEDS: Enoxaparin 40 MG/0.4 ML Syringe SC (06:32)
[2023-11-14] MEDS: Arthritis Pain Compound 60 CLICK TUBE TOPICAL ×3 (06:32→21:40)
[2023-11-14] MEDS: Levothyroxine 137 MCG Tablet PO (06:33)
[2023-11-14] MEDS: Lisinopril 10 MG Tablet 30 MG PO (06:34)
[2023-11-14] MEDS: Pregabalin 50 MG Capsule 100 MG PO ×2 (06:36→17:03)
[2023-11-14 06:45] LABS: Bedside Glucose 134 mg/dL (74-106)
[2023-11-14] MEDS: Insulin U-500 UNITS/ML PEN 145 UNITS SC (06:57)
[2023-11-14] MEDS: Multivitamins,Therapeutic Tablet 1 TABLET PO (08:49)
[2023-11-14] MEDS: Ferrous Sulfate 325 MG Tablet PO (08:49)
[2023-11-14] MEDS: Hydroxychloroquine 200 MG Tablet PO ×2 (08:49→21:42)
[2023-11-14] MEDS: Ascorbic Acid 500 MG Tablet 1000 MG PO (08:50)
[2023-11-14] MEDS: Pantoprazole Sodium 40 MG Tablet PO (08:50)
[2023-11-14] MEDS: Cyanocobalamin 500 MCG Tablet 1000 MCG PO (08:50)
[2023-11-14] MEDS: Vitamin E 400 UNITS Capsule PO (08:51)
[2023-11-14] MEDS: Loratadine 10 MG Tablet PO (08:51)
[2023-11-14] MEDS: Calcium (Elemental) 500 MG Tablet PO (08:51)
[2023-11-14] MEDS: Aspirin E.C. 81 MG Tablet PO (08:51)
[2023-11-14 08:52] VITALS: PULSE 76
[2023-11-14] MEDS: Juven (unflavored) Packet 1 PACKET PO ×2 (08:52→17:03)
[2023-11-14] MEDS: Metoprolol(XL)Succ 100 MG Tablet PO (08:52)
[2023-11-14] MEDS: buPROPion (XL) 300 MG TABLET.XL PO (08:53)
[2023-11-14] MEDS: Nystatin Powder 15gm Bottle 1 APPLIC TOPICAL ×2 (08:59→21:42)
[2023-11-14 11:48] LABS: Bedside Glucose 163 mg/dL (74-106)
[2023-11-14 12:00] VITALS: BP 106/50; PULSE 74; RESP 18; TEMP 36.1; O2SAT 98
[2023-11-14] MEDS: Insulin Lispro 100 UNIT/ML INSULN.PEN SC (12:15)
[2023-11-14] MEDS: Insulin U-500 UNITS/ML PEN 10 UNITS SC (12:16)
[2023-11-14 17:03] LABS: Bedside Glucose 89 mg/dL (74-106)
[2023-11-14 17:25] VITALS: BP 102/54; PULSE 67
[2023-11-14] MEDS: Senna/Docusate Sodium 1 Tablet 2 TABLET PO (21:41)
[2023-11-14] MEDS: Atorvastatin Calcium 10 MG Tablet PO (21:42)
[2023-11-14] MEDS: Pregabalin 75 MG Capsule 150 MG PO (21:42)
[2023-11-14] MEDS: Insulin U-500 UNITS/ML PEN 40 UNITS SC (21:45)
[2023-11-14 22:00] VITALS: BP 130/79; PULSE 69; PULSE 72; RESP 16; RESP 17; TEMP 36.3; O2SAT 97
[2023-11-14 22:36] LABS: Bedside Glucose 162 mg/dL (74-106)
[2023-11-15 05:46] VITALS: BP 136/54; PULSE 79; RESP 18; TEMP 36.7; O2SAT 97
[2023-11-15] MEDS: Arthritis Pain Compound 60 CLICK TUBE TOPICAL ×3 (06:58→21:43)
[2023-11-15] MEDS: Levothyroxine 137 MCG Tablet PO (06:58)
[2023-11-15] MEDS: Enoxaparin 40 MG/0.4 ML Syringe SC (06:58)
[2023-11-15] MEDS: Insulin U-500 UNITS/ML PEN 145 UNITS SC (06:58)
[2023-11-15 07:21] LABS: Bedside Glucose 141 mg/dL (74-106)
[2023-11-15] MEDS: Multivitamins,Therapeutic Tablet 1 TABLET PO (07:31)
[2023-11-15] MEDS: Juven (unflavored) Packet 1 PACKET PO ×2 (07:31→16:31)
[2023-11-15] MEDS: Vitamin E 400 UNITS Capsule PO (07:32)
[2023-11-15] MEDS: Lisinopril 10 MG Tablet 30 MG PO (07:32)
[2023-11-15] MEDS: Ferrous Sulfate 325 MG Tablet PO (07:33)
[2023-11-15] MEDS: Calcium (Elemental) 500 MG Tablet PO (07:34)
[2023-11-15] MEDS: Pregabalin 50 MG Capsule 100 MG PO ×2 (07:36→16:32)
[2023-11-15 08:43] VITALS: BP 136/54; PULSE 79; RESP 18; TEMP 36.6; O2SAT 97
[2023-11-15] MEDS: Loratadine 10 MG Tablet PO (09:42)
[2023-11-15] MEDS: Aspirin E.C. 81 MG Tablet PO (09:42)
[2023-11-15 09:43] VITALS: PULSE 79
[2023-11-15] MEDS: Hydroxychloroquine 200 MG Tablet PO ×2 (09:43→21:44)
[2023-11-15] MEDS: Metoprolol(XL)Succ 100 MG Tablet PO (09:43)
[2023-11-15] MEDS: Pantoprazole Sodium 40 MG Tablet PO (09:43)
[2023-11-15] MEDS: Nystatin Powder 15gm Bottle 1 APPLIC TOPICAL (09:47)
[2023-11-15] MEDS: Ascorbic Acid 500 MG Tablet 1000 MG PO (09:48)
[2023-11-15] MEDS: Psyllium 1 PACKET 2 PACKET PO (09:48)
[2023-11-15] MEDS: buPROPion (XL) 300 MG TABLET.XL PO (09:49)
[2023-11-15] MEDS: Cyanocobalamin 500 MCG Tablet 1000 MCG PO (09:49)
[2023-11-15 11:38] VITALS: BP 106/55; PULSE 68; RESP 16; TEMP 36.5; O2SAT 96
[2023-11-15 11:47] LABS: Bedside Glucose 147 mg/dL (74-106)
[2023-11-15] MEDS: Insulin U-500 UNITS/ML PEN 10 UNITS SC (12:15)
[2023-11-15 14:04] LABS: Source Not Provided
[2023-11-15 14:05] LABS: Size 3x3 mm
[2023-11-15 16:46] LABS: Bedside Glucose 143 mg/dL (74-106)
[2023-11-15 18:00] VITALS: BP 109/55; PULSE 67; RESP 16; TEMP 36.2; O2SAT 99
[2023-11-15] MEDS: Pregabalin 75 MG Capsule 150 MG PO (21:43)
[2023-11-15] MEDS: Atorvastatin Calcium 10 MG Tablet PO (21:43)
[2023-11-15] MEDS: Senna/Docusate Sodium 1 Tablet 2 TABLET PO (21:43)
[2023-11-15] MEDS: Insulin U-500 UNITS/ML PEN 40 UNITS SC (21:44)
[2023-11-15 21:47] LABS: Bedside Glucose 174 mg/dL (74-106)
[2023-11-15 22:00] VITALS: BP 107/57; PULSE 90; RESP 15; RESP 16; TEMP 36.3; O2SAT 98
[2023-11-16 06:00] VITALS: BP 122/66; PULSE 72; RESP 16; TEMP 36.3; O2SAT 97
[2023-11-16 06:16] LABS: Bedside Glucose 180 mg/dL (74-106)
[2023-11-16] MEDS: Levothyroxine 137 MCG Tablet PO (06:24)
[2023-11-16] MEDS: Arthritis Pain Compound 60 CLICK TUBE TOPICAL ×3 (06:24→22:10)
[2023-11-16] MEDS: Enoxaparin 40 MG/0.4 ML Syringe SC (06:24)
[2023-11-16] MEDS: Lisinopril 10 MG Tablet 30 MG PO (06:25)
[2023-11-16] MEDS: Pregabalin 50 MG Capsule 100 MG PO ×2 (06:28→16:43)
[2023-11-16] MEDS: Insulin U-500 UNITS/ML PEN 145 UNITS SC (06:48)
[2023-11-16 08:00] VITALS: BP 122/66; PULSE 72
[2023-11-16] MEDS: Psyllium 1 PACKET 2 PACKET PO (08:00)
[2023-11-16] MEDS: Cyanocobalamin 500 MCG Tablet 1000 MCG PO (08:00)
[2023-11-16] MEDS: Metoprolol(XL)Succ 100 MG Tablet PO (08:00)
[2023-11-16] MEDS: Juven (unflavored) Packet 1 PACKET PO ×2 (08:00→16:42)
[2023-11-16] MEDS: Vitamin E 400 UNITS Capsule PO (08:00)
[2023-11-16] MEDS: buPROPion (XL) 300 MG TABLET.XL PO (08:01)
[2023-11-16] MEDS: Multivitamins,Therapeutic Tablet 1 TABLET PO (08:01)
[2023-11-16] MEDS: Ferrous Sulfate 325 MG Tablet PO (08:01)
[2023-11-16] MEDS: Hydroxychloroquine 200 MG Tablet PO ×2 (08:01→22:10)
[2023-11-16] MEDS: Ascorbic Acid 500 MG Tablet 1000 MG PO (08:01)
[2023-11-16] MEDS: Aspirin E.C. 81 MG Tablet PO (08:01)
[2023-11-16] MEDS: Pantoprazole Sodium 40 MG Tablet PO (08:01)
[2023-11-16] MEDS: Calcium (Elemental) 500 MG Tablet PO (08:01)
[2023-11-16] MEDS: Loratadine 10 MG Tablet PO (08:01)
[2023-11-16] MEDS: Nystatin Powder 15gm Bottle 1 APPLIC TOPICAL (08:02)
[2023-11-16] MEDS: Insulin Lispro 100 UNIT/ML INSULN.PEN SC ×2 (09:02→12:06)
[2023-11-16 11:22] LABS: Bedside Glucose 286 mg/dL (74-106)
[2023-11-16 12:00] VITALS: BP 123/67; PULSE 95
[2023-11-16] MEDS: Insulin U-500 UNITS/ML PEN 10 UNITS SC (12:07)
--- NOTE | 2023-11-16 12:16 | PN_ITS ---
Subjective Subjective Flor was seen on team rounds today. Afebrile VSS Maintaining appropriate oxygen saturation on RA Oral intake - FOOD good FLUIDS good urine output is still mostly greater than fluid intake however it is starting to level off. Discussed with nursing - no problems that need addressed Reviewed the THERAPY notes Medication list reviewed. Has not had any Oxycodone wince 10/30/23. Has only had 3 total doses of Tizanidine since admission. The stone analysis is 100% uric acid. She reports that she has had some nausea and 1 emesis the past few days. She feels bloated. Similar to how she felt when taking Ozempic in the past. I suspect it may be due to excess fluid consumption to keep up with the urinary losses and now that the urine loss is coming down the fluid + the delayed gastric emptying is leading to the bloating. She denies cephalgia, lightheadedness, cough, shortness of breath, chest pain, dysuria and left calf pain. Denies cephalgia, constipation and insomnia. Tolerating 300 mg daily of Wellbutrin XL with no significant adverse reactions. Objective Data Objective Data Vital Signs: Vital Signs Temp Pulse Resp BP Pulse Ox O2 Del Method O2 Flow Rate 97.3 F L 72 16 122/66 H 97 Room Air 15 11/16/23 06:00 11/16/23 08:00 11/16/23 06:00 11/16/23 08:00 11/16/23 06:00 11/16/23 06:00 11/05/23 13:40 Oxygen Flow Rate (L/min) 15 Oxygen Delivery Method Room Air Weight: 337 lb 4.916 oz Body Mass Index (BMI) 54.2 Intake & Output: Intake and Output for Last 24 Hours 11/14/23 11/15/23 11/16/23 23:59 23:59 23:59 Intake Total 2990 / 2990 4330 / 4330 1420 / 1420 Output Total 3450 / 3450 3750 / 3750 1850 / 1850 Balance -460 / -460 580 / 580 -430 / -430 Lab / Micro Data 11/11/23 05:32 11/16/23 15:39 Labs: Laboratory Results - last 24 hr 11/05/23 13:45: Stone Analysis , Stone Source Not Provided, Stone Size 3x3 mm, Stone Weight 17 mg, Stone Color [place], Ur Stone Photo Note , Stone Uric Acid 100 %, Stone Comment 11/05/23 13:45: Stone Comment 11/05/23 13:45: Stone Comment 11/15/23 16:19: POC Glucose 143 H 11/15/23 21:29: POC Glucose 174 H 11/16/23 05:57: POC Glucose 180 H 11/16/23 10:56: POC Glucose 286 H Physical Exam Const alert General Appearance: cooperative HEENT HEENT Narrative: The dry MM likely has a lot to do with Wellbutrin and Lyrica. Mouth: dry mucous membranes Resp clear to auscultation bilaterally Resp Narrative: no cough and no tachypnea. No conversational dyspnea. Effort and Inspection: Negative for tachypneic Auscultation: diminished lung sounds Cardio regular rate, regular rhythm and no gallops Cardio Narrative: Heart sounds are distant. No ectopy GI normal to inspection, nondistended, normoactive bowel sounds and soft to palpation GI Narrative: having regular BM's Extremity no calf tenderness Extremity Narrative: no significant peripheral edema. The stump is shrinking and we have been adding stockings to the dressing to keep the cast in place. Skin Skin Narrative: the medial corner of the incision has a scab. there is no DC from then area. The dressing was dry with no DC when we removed it today. Michael are intact. No sherif-incisional erythema and no significant increased warmth to touch. Rashes: no rashes Psych cooperative and affect normal Psych Narrative: sleeping well at night good appetite. Appearance: appropriate Attitude: No agitated Assessment & Plan Assessment/Plan (1) Physical debility: (2) History of right below knee amputation: (3) Charcot ankle: QUALIFIERS: Laterality: right Qualified Code(s): M14.671 - Charcot's joint, right ankle and foot (4) Acute blood loss anemia: (5) Diabetes mellitus, type 2: QUALIFIERS: Diabetes mellitus long-term insulin use: with long-term use Diabetes mellitus complication status: with kidney complications Chronic kidney disease stage: stage 3 (moderate) Chronic kidney disease stage 3 subtype: stage 3a (GFR 45-59) (6) Chronic renal failure (CRF), stage 3a: (7) Depression: QUALIFIERS: Depression Type: reactive depression Qualified Code(s): F32.9 - Major depressive disorder, single episode, unspecified (8) Acute on chronic renal failure: QUALIFIERS: Acute renal failure type: unspecified Chronic kidney disease stage: stage 3 (moderate) Chronic kidney disease stage 3 subtype: stage 3a (GFR 45-59) Qualified Code(s): N17.9 - Acute kidney failure, unspecified; N18.31 - Chronic kidney disease, stage 3a (9) S/P cystoscopy with ureteral stent placement: (10) Mass of right breast: (11) Hyperuricemia: (12) Polyuria: PLAN: Plan 1. Continue therapy 2. Check a BMP now. If the creatinine is stable consider starting allopurinol 100 mg daily. 3. Needs follow up with Dr. Knapp (R breast mass), Dr. Hilliard (the office will call her), Aakash Dove NP (she expressed interest in changing PCP's and asked for a referral) and Dr. Kent (has an appt this coming ). 4. She needs a follow up CT of the abd and pelvis per Dr. Mata to follow up on the retained stones and the stent and a R breast US per Dr. Knapp. 5. She should follow up in the diabetic clinic run by the dieticians post [place]. Charges/Coding Visit Charges Inpatient E&M: 72386 Subs Hosp L2
--- NOTE | 2023-11-16 13:56 | CASEMGMT ---
Social Work IDT met with patient at bedside to complete care plans. Discussed patient progress with therapy (PT/OT) and nursing support. Patient is making progress with therapy. Patient anticipates discharge on 11/19/23 to home with home health care services. Patient requested for Promotion Therapy for home health care services. Home Health Care agency has not responded to referral. SW informed patient that a follow up call will be made to agency to determine acceptance. Patient was provided script for DME ordered by privately. Patient requested for DME walker; referral to be sent to [facility] [place]. Patient requested delivery at bedside. SW will place order for DME per patient request. SW will continue to follow to assist with discharge planning. MANJEET Kang
[2023-11-16 15:03] LABS: Bedside Glucose 66 mg/dL (74-106)
[2023-11-16 15:30] LABS: Bedside Glucose 80 mg/dL (74-106)
[2023-11-16 16:13] LABS: Anion Gap 5 (5-15); BUN 44 mg/dL (7-18); BUN/Creat Ratio 33.8 RATIO (10-20); Calcium,Total 9.5 mg/dL (8.5-10.1); Chloride 105 mmol/L (98-107); EST Glomerular Filtration Rate 44 mL/min (>60); Est Glom Filt Rate - Afr Amer 53 mL/min (>60); Estimated Creatinine Clearance 68.55 ml/min; Glucose 84 mg/dL (74-106); Potassium 4.3 mmol/L (3.5-5.1); Sodium Level 136 mmol/L (136-145)
[2023-11-16 18:00] VITALS: BP 116/72; PULSE 90
[2023-11-16 22:00] VITALS: BP 100/41; PULSE 71; RESP 18; TEMP 36.1; O2SAT 99
[2023-11-16] MEDS: Atorvastatin Calcium 10 MG Tablet PO (22:10)
[2023-11-16] MEDS: Pregabalin 75 MG Capsule 150 MG PO (22:10)
[2023-11-16] MEDS: Senna/Docusate Sodium 1 Tablet 2 TABLET PO (22:12)
[2023-11-16] MEDS: Insulin U-500 UNITS/ML PEN 40 UNITS SC (22:17)
[2023-11-16 22:42] LABS: Bedside Glucose 220 mg/dL (74-106)
--- NOTE | 2023-11-17 01:40 | NURSING ---
REVIEWED AND AGREE WITH [facility], DOCUMENTATION AND ASSESSMENT CHARTING.
[2023-11-17 06:00] VITALS: BP 93/49; PULSE 71; RESP 16; TEMP 36.5; O2SAT 99
[2023-11-17] MEDS: Pregabalin 50 MG Capsule 100 MG PO ×2 (06:51→15:52)
[2023-11-17] MEDS: Levothyroxine 137 MCG Tablet PO (06:51)
[2023-11-17] MEDS: Arthritis Pain Compound 60 CLICK TUBE TOPICAL ×2 (06:52→12:48)
[2023-11-17] MEDS: Enoxaparin 40 MG/0.4 ML Syringe SC (06:52)
[2023-11-17] MEDS: Lisinopril 10 MG Tablet 30 MG PO ×2 (06:52→20:32)
[2023-11-17] MEDS: Insulin Lispro 100 UNIT/ML INSULN.PEN SC (06:59)
[2023-11-17] MEDS: Insulin U-500 UNITS/ML PEN 145 UNITS SC (06:59)
[2023-11-17 07:26] LABS: Bedside Glucose 197 mg/dL (74-106)
[2023-11-17 08:05] VITALS: PULSE 71
[2023-11-17] MEDS: Metoprolol(XL)Succ 100 MG Tablet PO (08:05)
[2023-11-17] MEDS: Psyllium 1 PACKET 2 PACKET PO (08:05)
[2023-11-17] MEDS: Ascorbic Acid 500 MG Tablet 1000 MG PO (08:05)
[2023-11-17] MEDS: Juven (unflavored) Packet 1 PACKET PO ×2 (08:05→15:53)
[2023-11-17] MEDS: Cyanocobalamin 500 MCG Tablet 1000 MCG PO (08:06)
[2023-11-17] MEDS: Vitamin E 400 UNITS Capsule PO (08:06)
[2023-11-17] MEDS: Multivitamins,Therapeutic Tablet 1 TABLET PO (08:06)
[2023-11-17] MEDS: Pantoprazole Sodium 40 MG Tablet PO (08:06)
[2023-11-17] MEDS: Calcium (Elemental) 500 MG Tablet PO (08:06)
[2023-11-17] MEDS: Hydroxychloroquine 200 MG Tablet PO ×2 (08:06→20:33)
[2023-11-17] MEDS: Loratadine 10 MG Tablet PO (08:06)
[2023-11-17] MEDS: buPROPion (XL) 300 MG TABLET.XL PO (08:07)
[2023-11-17] MEDS: Ferrous Sulfate 325 MG Tablet PO (08:07)
[2023-11-17] MEDS: Aspirin E.C. 81 MG Tablet PO (08:07)
--- NOTE | 2023-11-17 10:32 | CASEMGMT ---
Social Work SW attempted to contact [facility] [phone], patient's preferred home health care agency. Patient requires home health care services for PT/OT/SN. SW was unable to make contact with [facility]; a voicemail was left requesting follow up for [facility] referral. MANJEET Kang
--- NOTE | 2023-11-17 11:43 | CASEMGMT ---
Social Work SW received approval from [employer] for Bariatric Front Wheeled Walker. DME to be delivered at bedside on 11/18/2023. MANJEET Kang
[2023-11-17 12:00] VITALS: BP 95/54; PULSE 81
[2023-11-17 12:19] LABS: Bedside Glucose 70 mg/dL (74-106)
[2023-11-17] MEDS: Insulin U-500 UNITS/ML PEN 10 UNITS SC (12:48)
--- NOTE | 2023-11-17 14:35 | CASEMGMT ---
Social Work SW received a call from [employer] informing SW that they do not have full access to [facility]. [facility] is requesting that referral is sent via fax to [phone]. [facility] is unable to provide nursing support, but can provide PT/OT services. SW met with patient at bedside to discuss home health care services. Patient informed SW that she would prefer [facility]. SW informed patient of [facility] limited services. Patient informed SW that she will not require in home nursing at this time. Patient will be meeting with surgical physician . Patient informed SW that she would like to utilize [facility] for PT/OT. SW faxed referral to [facility] for review for services. SW reviewed home health care and discharge disposition with patient. Patient informed SW that she will be discharging with the support of her . Patient is feeling positive for outcome. Patient has goals to walk some day. Discharge: Home with Home Health PT/OT services. Bariatric Walker via MANJEET Clark
[2023-11-17] MEDS: tiZANidine HCl 2 MG Tablet PO (14:43)
[2023-11-17 17:14] LABS: Bedside Glucose 129 mg/dL (74-106)
[2023-11-17 17:41] VITALS: BP 95/52; PULSE 66
[2023-11-17] MEDS: Atorvastatin Calcium 10 MG Tablet PO (20:33)
[2023-11-17] MEDS: Senna/Docusate Sodium 1 Tablet 2 TABLET PO (20:33)
[2023-11-17] MEDS: Pregabalin 75 MG Capsule 150 MG PO (20:34)
[2023-11-17] MEDS: Insulin U-500 UNITS/ML PEN 40 UNITS SC (20:40)
[2023-11-17 21:04] LABS: Bedside Glucose 121 mg/dL (74-106)
[2023-11-17 21:20] VITALS: BP 103/48; PULSE 67; RESP 16; TEMP 37; O2SAT 95
[2023-11-17] MEDS: oxyCODONE 5 MG Tablet PO (21:56)
[2023-11-18 06:00] VITALS: BP 97/46; PULSE 67; RESP 16; TEMP 36.6
[2023-11-18] MEDS: Enoxaparin 40 MG/0.4 ML Syringe SC (06:36)
[2023-11-18] MEDS: Levothyroxine 137 MCG Tablet PO (06:36)
[2023-11-18] MEDS: Arthritis Pain Compound 60 CLICK TUBE TOPICAL ×3 (06:36→21:11)
[2023-11-18] MEDS: Insulin U-500 UNITS/ML PEN 145 UNITS SC (06:37)
[2023-11-18] MEDS: Pregabalin 50 MG Capsule 100 MG PO ×2 (06:40→16:38)
[2023-11-18 06:59] LABS: Bedside Glucose 177 mg/dL (74-106)
[2023-11-18] MEDS: Juven (unflavored) Packet 1 PACKET PO ×2 (08:08→16:38)
[2023-11-18] MEDS: Calcium (Elemental) 500 MG Tablet PO (08:09)
[2023-11-18] MEDS: Multivitamins,Therapeutic Tablet 1 TABLET PO (08:09)
[2023-11-18] MEDS: Ascorbic Acid 500 MG Tablet 1000 MG PO (08:09)
[2023-11-18] MEDS: Pantoprazole Sodium 40 MG Tablet PO (08:10)
[2023-11-18] MEDS: Aspirin E.C. 81 MG Tablet PO (08:10)
[2023-11-18] MEDS: Loratadine 10 MG Tablet PO (08:10)
[2023-11-18] MEDS: Vitamin E 400 UNITS Capsule PO (08:10)
[2023-11-18] MEDS: Hydroxychloroquine 200 MG Tablet PO ×2 (08:11→21:09)
[2023-11-18] MEDS: buPROPion (XL) 300 MG TABLET.XL PO (08:12)
[2023-11-18] MEDS: Ferrous Sulfate 325 MG Tablet PO (08:12)
[2023-11-18] MEDS: Cyanocobalamin 500 MCG Tablet 1000 MCG PO (08:12)
[2023-11-18 08:16] VITALS: BP 102/57; PULSE 69
[2023-11-18] MEDS: Metoprolol(XL)Succ 100 MG Tablet PO (08:16)
[2023-11-18] MEDS: oxyCODONE 5 MG Tablet PO ×2 (08:21→21:58)
[2023-11-18 08:25] VITALS: BP 102/57; PULSE 69
[2023-11-18] MEDS: Psyllium 1 PACKET 2 PACKET PO (10:16)
[2023-11-18 10:25] VITALS: PULSE 77; RESP 18; O2SAT 94
[2023-11-18 11:16] LABS: Bedside Glucose 156 mg/dL (74-106)
--- NOTE | 2023-11-18 11:46 | PCM.DC ---
Discharge Instructions Diet Discharge Diet: - (1800 calorie, consistent carbohydrate diet with low salt and low fat. ) Activity Discharge Activity: May Not Drive, May Shower, Use Walker (no more than 15 feet hopping. ) and - (Use wheelchair for distances longer than 15 ft. ) May resume sexual activity in: No Restrictions Weight Bearing Status: Full weight bearing Keep extremity elevated above heart level: Legs Dressing / Incision Call your doctor if your incision/area has: Continuous Slow Oozing, Sudden Increased Bleeding, Increased Pain/ Swelling, Increased Redness, Foul Smelling Discharge and Swelling at the incision site Call your doctor if you observe: Fever of 101 or Higher, Inability to urinate, Shortness of breath, Dizziness, Fainting spells, Chest pain, Increased palpitations (irregular heartbeat), Calf discomfort and Uncontrolled pain Suture Line Care: Avoid Pulling/Pushing and Avoid Pinching/Bending Change Dressing in: daily Remove Dressing in: 1 day Cleanse incision/area with: Soap & Water and Keep Dressing Clean & Dry Follow Up Care Please Follow Up With: Aakash Dove Heaven, DIRECTOR OF DIAGNOSTIC IMAGING-C When: you will also need to follow up with Dr. Mata, Dr. Hilliard, Dr. Kent and Dr. Knapp. Test Results: Test results from this visit will be discussed in further detail at your follow-up appointment, if applicable. 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 Your weight is down 15 pounds since you arrived on rehab. YEAH. this has had a + effect on your BP. I was able to decrease the dose of the Lisinopril prior to DC from rehab. The dieticians at the hospital have a few clinics they operate. One is for management of diabetes and the other is called [facility] for people who are trying to lose weight. All you need is a referral from your PCP. They are both excellent programs. Fast foods and restaurant foods tend to be high in calories and salt. Making meals from scratch is always a good option and if you are unable to make a healthy meal then Healthy choice microwave dinners are an option. YOU CAN DO THIS.....DO NOT BE IN A HURRY, IT COMES OFF A LOT SLOWER THAN IT WENT ON. Exercise is very important in controlling blood sugars and weight. [facility] is an excellent facility. You can do the Nu-step and this is good cardiovascular exercise. Doing some work with weights is also good because it builds muscle and it helps to prevent osteoporosis. 2. Getting a pair of high top tennis shoes or wearing a ankle brace will help to stabilize the Left ankle. This is especially important since you are having to hop on the left leg for short distances. Can't afford any falls and fractures. 3. Your blood sugars are under much better control. If you can stick to 1800 calories You will have good blood sugar control and continue to lose weight. Dr. Hilliard's office will call you to schedule an appt. 4. The kidney stone was 100% uric acid. Your uric acid level was high at 7.8....normal is 2.6 - 6. Because you have now had 2 kidney stone events I want to see the uric acid 5 or less. You have been started on a medication called Allopurinol to help get the uric acid level less than 5. I am giving you some literature about kidney stones and how to prevent them. You have chronic kidney disease, more likely than not due to long standing diabetes and high blood pressure. There are 5 stages of kidney failure and you are stage 3a which is moderate. Lisinopril helps to preserve kidney function in diabetics and this is working to control BP and prevent further kidney damage. You have no significant amount of protein in your urine and this is a good thing. As the kidney function deteriorates the protein in the urine increase. 5. We have thrown a lot at you this admission to rehab. The kidney stone and acute kidney failure were a surprise and then finding the R breast mass on the CT scan of the abdomen and pelvis we did to look at the kidneys was a surprise BUT, now we know about it and can get things taken care of. Dr. Knapp is excellent and will take good care of you. I am ordering a mammogram.......she thinks they can do the mammogram seated and she is checking into this. You will also need an ultra sound of the breast to determine if the mass is cystic or solid. Before you can deal with a problem you have to know a problem exists. We would not have known about the mass if you did not have the CT scan.......now we can address this sooner rather than later. That's a good thing. 6. I think depression plays a big part in food addiction. You were taken off Cymbalta because it was no longer needed to control the neuropathic pain in the feet and it was obviously not treating depression. You are now taking Wellbutrin and tolerating it well. It is not only a good antidepressant but, it also helps to suppress appetite. There is another formulation of Wellbutrin and it combines the Wellbutrin and another drug called Naltrexone and is indicated for chronic weight management. This may be an option for you. The hospital does not have this medication on formulary and this is why I chose to use Wellbutrin alone. 7. You have worked very hard on getting more mobile and I am very pleased with your progress....you should be proud of yourself. I have no doubt you will do well with a prosthesis. The incision looks very good and there has been no breakdown. The stump has shrunk significantly since you arrive on rehab. 8. Diabetes is a tough disease, deidre if you have a food addiction. Most people do not feel bad with high blood sugars and so many people ignore good blood sugar control. The problem is that uncontrolled blood sugars lead to damage to the vascular system and then after 10-20 years of uncontrolled sugars you start to have problems with occlusion of the small arteries in the hands and feet and you get neuropathy. then the medium size arteries become involved and this leads to coronary artery disease, kidney disease, strokes and eye disease, I want you to keep 3 goals in mind. HGBA1C ,7, BP ,130/80 and LDL (bad cholesterol) <70. You should always know what your last lab for HGBA1C and LDL are and what your BP is running. IF you can keep these numbers under control it will go a long way toward preventing the skilled nursing complications of diabetes. 9. We have not had to give any short acting insulin recently for elevated blood sugars. I am giving you a prescription for Lispro to take before meals for elevated blood sugar. There is a sliding scale to use. 10. Good luck to you Elisabet. If there is anything I can do to help you along the way please do not hesitate to call. If you have any questions after leaving rehab please call me. OFFICE: [phone] CELL: [phone] Discharge Orders/Prescriptions Prescriptions: New ascorbic acid (vitamin C) 500 mg Tablet 1,000 mg PO DAILY Qty: 30 0RF Rx Instructions: Take this with the iron with food. calcium carbonate [Oyster Shell Calcium 500] 500 mg calcium (1,250 mg) Tablet 500 mg PO BREAKFAST Qty: 30 0RF bupropion HCl 300 mg Tablet Extended Release 24 Hr 300 mg PO DAILY Qty: 30 0RF lisinopril 20 mg Tablet 20 mg PO 0700 Qty: 30 0RF Daily Fiber (psyllium-aspart) 3 gram Powder In Packet 2 packet PO DAILY Qty: 120 0RF insulin lispro 100 unit/mL insulin pen 3 unit subcut TID PRN (Reason: elevated BS) Qty: 15 0RF Rx Instructions: 180-210 20 units 211-240 25 units 241-280 30 units >280 40 units allopurinol 100 mg tablet 100 mg PO DAILY Qty: 30 0RF Continued hydroxychloroquine [Plaquenil] 200 mg tablet 200 mg PO BID Enbrel 50 mg/mL (0.98 mL) syringe 50 mg SC QWEEK Hold Instructions: Ordered pregabalin [Lyrica] 150 mg capsule 150 mg PO QHS levothyroxine 175 mcg capsule 137 mcg PO DAILY ferrous sulfate [Feosol] 325 mg (65 mg iron) tablet 325 mg PO DAILY multivitamin 1 EACH tablet 1 ea PO DAILY Patient Comments: SUPPLEMENT metoprolol succinate 100 MG tablet 100 mg PO DAILY Patient Comments: HEART omeprazole 40 MG capsule 40 mg PO DAILY Patient Comments: HEARTBURN, GERD aspirin 81 MG tablet,delayed release (DR/EC) 81 mg PO DAILY Patient Comments: HEART HEALTH, STROKE PREVENTION simvastatin 20 MG tablet 20 mg PO QHS Patient Comments: CHOLESTEROL cetirizine 10 MG capsule 10 mg PO DAILY Patient Comments: ALLERGIES cyanocobalamin (vitamin B-12) 1,000 MCG tablet, sublingual 1,000 mcg PO DAILY Changed insulin regular hum U-500 conc 500 unit/mL (3 mL) insulin pen See Rx Instructions .ROUTE .COMPLEX 30 Days Qty: 5 0RF Rx Instructions: 145 units with breakfast 10 units with lunch 40 units at HS Discontinued losartan-hydrochlorothiazide 1 TAB tablet 1 tab PO DAILY Patient Comments: BLOOD PRESSURE (CONTAINS A DIURETIC) duloxetine 60 mg capsule,delayed release(DR/EC) 30 mg PO QHS Patient Comments: DEPRESSION/ANXIETY Referrals / Follow Up: Deng Roblero [Other] - 11/19/23 1:45 pm Ultrasound,right breast [Other] - 11/19/23 9:30 am (outpatient [facility] here at [facility]) CT,abdomen/pelvis [Other] - 11/19/23 9:00 am (go to first floor registration desk) Mammogram, r [Other] - 11/19/23 8:30 am [facility] [Outside] - 12/16/23 1:20 pm (Anabell De Leon NP) Marga Mata MD [Med Staff - Active Staff] - 12/03/23 10:45 am Sina Hilliard MD [Med Staff - Courtesy Staff] - Steffanie Knapp MD [Med Staff - Active Staff] - (call and make appointment after you get your mammogram appointment ) Disposition Disposition (needs filled in before D/C Order can be placed): Home Health Service
[2023-11-18 12:00] VITALS: BP 102/55; PULSE 99; RESP 18; TEMP 37.2; O2SAT 96
[2023-11-18] MEDS: Insulin U-500 UNITS/ML PEN 10 UNITS SC (12:06)
--- NOTE | 2023-11-18 13:12 | PCM.DC.SUM ---
Providers Date of Admission: 10/22/23 Date of Discharge: 11/19/23 Primary Care Physician: Aakash Dove MARZIPAN MOLDER Consultations 10/27/23 16:29 Consult: Endocrinology Routine Consulting Provider: [facility] Reason for Consult: Uncontrolled type 2 diabetes mellitus EMERGENT Consult: No Notified: Yes Date Notified: 10/27/23 Time Notified: 16:29 Method of Notification: Text 11/03/23 14:16 Consult: Urology Routine Consulting Provider: Marga Mata Reason for Consult: ureteral stone with hydronephrosis and ARF EMERGENT Consult: No Notified: Yes Date Notified: 11/03/23 Time Notified: 14:16 Method of Notification: Answering Service Reason For Visit: RIGHT BKA Diagnosis Discharge Diagnosis (1) Physical debility: Status: Acute Code(s): R53.81 - Other malaise (2) Charcot ankle: Status: Chronic Code(s): M14.679 - Charcot's joint, unspecified ankle and foot Qualifiers: Laterality: right Qualified Code(s): M14.671 - Charcot's joint, right ankle and foot (3) History of right below knee amputation: Status: Acute Code(s): Z89.511 - Acquired absence of right leg below knee Plan: Done by Dr. Kent on 10/19/23 at [facility]. She has a follow-up appointment scheduled with Dr. Kent on 11/19/2023 in the afternoon. (4) Acute blood loss anemia: Status: Acute Code(s): D62 - Acute posthemorrhagic anemia Plan: Started on an iron supplement and Vitamin C to promote GI absorption of iron in this patient who is chronically on a PPI for GERD. (5) Acute on chronic renal failure: Status: Acute Code(s): N17.9 - Acute kidney failure, unspecified; N18.9 - Chronic kidney disease, unspecified Qualifiers: Acute renal failure type: unspecified Chronic kidney disease stage: stage 3 (moderate) Chronic kidney disease stage 3 subtype: stage 3a (GFR 45-59) Qualified Code(s): N17.9 - Acute kidney failure, unspecified; N18.31 - Chronic kidney disease, stage 3a Plan: due to ureteral stones on the left causing left hydroureter and left hydronephrosis. (6) Hydronephrosis: Status: Resolved Code(s): N13.30 - Unspecified hydronephrosis Qualifiers: Hydronephrosis type: with ureteral calculous obstruction Qualified Code(s): N13.2 - Hydronephrosis with renal and ureteral calculous obstruction (7) Ureteral calculus: Status: Acute Code(s): N20.1 - Calculus of ureter Plan: The stone was 100% uric acid. She has had kidney stones in the past and the stone analysis revealed 80% uric acid and 20% calcium. She will follow-up with Dr. Mata postdischarge from acute rehab. (8) Hyperuricemia: Status: Chronic Code(s): E79.0 - Hyperuricemia without signs of inflammatory arthritis and tophaceous disease Plan: Uric acid is elevated at 7.8. Started on Allopurinol 100 mg daily at [place]. Will need a recheck of UA in 1 month and if the UA is > 5 would increase the dose by 100 mg monthly until the UA is 5 or less to decrease risk for recurrent stones. She was instructed in a low purine diet by the dietitian while on acute rehab. She knows that she needs to keep well-hydrated to prevent dehydration/stones. HCTZ was discontinued and her BP is now well controlled on Metoprolol and Lisinopril. A (9) S/P cystoscopy with ureteral stent placement: Status: Acute Code(s): Z96.0 - Presence of urogenital implants Plan: 11/05/[address] Marga Mata. She is to have a follow-up CT scan of the abdomen and pelvis on the day of discharge from rehab and will follow-up with Dr. Mata in the office. (10) Polyuria: Status: Resolved Code(s): R35.89 - Other polyuria Plan: Due to urinary tract obstruction, CRF, IV fluids and uncontrolled blood sugars. Fluid balance at discharge is about even daily at [place]. (11) Depression: Status: Chronic Code(s): F32.A - Depression, unspecified Qualifiers: Depression Type: reactive depression Qualified Code(s): F32.9 - Major depressive disorder, single episode, unspecified Plan: Uncontrolled on Duloxetine 90 mg daily. Duloxetine was weaned off and she was started on Wellbutrin. The neuropathic pain is controlled with Lyrica alone. Continue Wellbutrin XL 300 mg daily at discharge. Could consider Wellbutrin/naltrexone for better appetite suppression going forward. (12) Mass of right breast: Status: Chronic Code(s): N63.10 - Unspecified lump in the right breast, unspecified quadrant Plan: First identified on a MMG in 2018. Lost to follow up. Has never had a bx. She has had endometrial CA and her her mother had both endometrial and breast cancer. She will have a diagnostic mammogram and a breast ultrasound on 11/19/2023 following discharge from acute rehab. She is going to follow up with Dr. Knapp for breast bx following OP diagnostic MMG and R breast US. 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 With neuropathy in both the hands and the feet and CRF stage 3a. She will be following up with Dr. King [place] from acute rehab. (14) Chronic renal failure (CRF), stage 3a: Status: Chronic Code(s): N18.31 - Chronic kidney disease, stage 3a (15) Fatty liver: Status: Chronic Code(s): K76.0 - Fatty (change of) liver, not elsewhere classified (16) Rheumatoid arthritis: Status: Chronic Code(s): M06.9 - Rheumatoid arthritis, unspecified Qualifiers: Rheumatoid arthritis location: multiple sites Plan: She has been seeing Dr. Hernandez. Will continue Plaquenil and she can restart Enbrel if OK with Dr. Kent. (17) Diabetic neuropathy: Status: Chronic Code(s): E11.40 - Type 2 diabetes mellitus with diabetic neuropathy, unspecified Qualifiers: Diabetes mellitus complication detail: diabetic polyneuropathy Diabetes mellitus type: type 2 Qualified Code(s): E11.42 - Type 2 diabetes mellitus with diabetic polyneuropathy Plan: Hands and feet. We were able to decrease the Lyrica to 100 mg BID and 150 mg at bedtime during her admission to rehab. Duloxetine has been discontinued with no exacerbation of neuropathic pain. (18) Morbid obesity with BMI of 50.0-59.9, adult: Status: Chronic Code(s): E66.01 - Morbid (severe) obesity due to excess calories; Z68.43 - Body mass index [BMI] 50.0-59.9, adult Plan: She is being discharged on an 1800-calorie, carb consistent, cardiac diet. She has lost approximately 15 pounds since admission to rehab. She was seen by the dietitian and received education on diabetic diets. She was given several meal plans to utilize after going home. I recommended she follow up with the dieticians at the [facility] for diabetic clinic and/or why weight. She will need a referral from her PCP. (19) Pulmonary hypertension: Status: Chronic Code(s): I27.20 - Pulmonary hypertension, unspecified Plan: 41 in the past..... consistent with mild pulmonary HTN. She is compliant with CPAP at night. (20) H/O cardiac radiofrequency ablation: Status: Chronic Code(s): Z98.890 - Other specified postprocedural states Plan: For SVT. (21) History of right and left heart catheterization: Status: Chronic Code(s): Z98.890 - Other specified postprocedural states (22) BRITT (obstructive sleep apnea): Status: Chronic Code(s): G47.33 - Obstructive sleep apnea (adult) (pediatric) Plan: Previously followed up with [facility] pulmonary medicine. Has seen Elsie Sellers NP. (23) GERD without esophagitis: Status: Chronic Code(s): K21.9 - Gastro-esophageal reflux disease without esophagitis Plan: Continue omeprazole. (24) Benign essential HTN: Status: Chronic Code(s): I10 - Essential (primary) hypertension Plan: Well-controlled at discharge on lisinopril 20 mg daily and metoprolol XL 100 mg daily. (25) Hyperlipidemia: Status: Chronic Code(s): E78.5 - Hyperlipidemia, unspecified Qualifiers: Hyperlipidemia type: pure hypercholesterolemia Qualified Code(s): E78.00 - Pure hypercholesterolemia, unspecified; E78.0 - Pure hypercholesterolemia Plan: Continue statin. Plan 1. Discharge home at 8:30 AM on 11/19/2023 so that she can have her outpatient mammogram and right breast ultrasound and then follow-up with Dr. Kent at his office in the afternoon. 2. CT scan of the abdomen and pelvis to be done on 11/19/2023 post discharge and then follow-up with Dr. Mata in the office going forward. 3. Dr. Hilliard's office will call her to schedule an appointment. 4. Diagnostic mammogram and right breast ultrasound on 11/19/2023 and then will follow-up with Dr. Knapp to arrange a biopsy. 5. She requested a new PCP and will be following up with Aakash Dove CNP at the [facility] within 7-10 days of DC from rehab. 6. She will follow up with rheumatology Medications at Discharge Home Medications aspirin 81 mg tablet,delayed release 81 mg PO DAILY Heart health 01/11/16 cetirizine 10 mg capsule 10 mg PO DAILY Allergies 01/11/16 metoprolol succinate 100 mg tablet,extended release 24 hr 100 mg PO DAILY BP 01/11/16 multivitamin 1 ea PO DAILY Supplement 01/11/16 omeprazole 40 mg capsule,delayed release 40 mg PO DAILY GERD 01/11/16 simvastatin 20 mg tablet 20 mg PO QHS Cholestrol 01/11/16 cyanocobalamin (vitamin B-12) 1,000 mcg sublingual tablet 1,000 mcg PO DAILY Supplement 07/02/17 etanercept 50 mg/mL (1 mL) subcutaneous syringe (Enbrel) 50 mg subcut QWEEK Ask 04/28/18 hydroxychloroquine 200 mg tablet (Plaquenil) 200 mg PO BID Platelets 04/28/18 pregabalin 150 mg capsule (Lyrica) 150 mg PO QHS Nerve pain 06/14/18 ferrous sulfate 325 mg (65 mg iron) tablet (Feosol) 325 mg PO DAILY supplement 04/25/20 levothyroxine 175 mcg capsule 137 mcg PO DAILY Thyroid 04/25/20 allopurinol 100 mg tablet 100 mg PO DAILY #30 tabs 11/18/23 ascorbic acid (vitamin C) 500 mg tablet 1,000 mg (2 x 500 mg) PO DAILY #30 tabs 11/18/23 bupropion HCl 300 mg 24 hr tablet, extended release 300 mg PO DAILY #30 tabs 11/18/23 calcium carbonate (Oyster Shell Calcium 500) 500 mg PO BREAKFAST #30 tabs 11/18/23 insulin lispro 100 unit/mL subcutaneous pen 3 unit (0.03 mL) subcut TID PRN elevated BS #15 mL 11/18/23 insulin regular hum U-500 conc 500 unit/mL(3 mL) subcut pen See Rx Instructions .Route .COMPLEX Blood sugar 30 days #5 pens 11/18/23 lisinopril 20 mg tablet 20 mg PO 0700 #30 tabs 11/18/23 oxycodone 5 mg capsule 5 mg PO Q6H PRN pain 7 days #28 caps 11/18/23 psyllium husk (aspartame) 3 gram oral powder packet (Daily Fiber (psyllium-aspartame)) 2 packet PO DAILY #120 ea 11/18/23 Hospital Course Operations - (Right below the knee amputation on 10/19/2023 at [facility] by Dr. Kent.) Procedures - (Cystoscopy with left ureteroscopy, laser lithotripsy, stone basket extraction and left ureteral stent insertion by Dr. Marga Mata on 11/05/2023.) Summary of Care Provided Minutes Spent on Discharge: 50 Hospital Course: KACY KEEN, is a 63 YO F with a PMH of poorly controlled DM II on U-500 insulin, HTN, diabetic peripheral polyneuropathy in her hands and feet, obstructive sleep apnea (compliant with AutoPap 5-20 centimeters of water), Charcot ankle on the right, history of endometrial cancer (status post MACO/BSO), rheumatoid arthritis (follows with Dr. Hernandez), carpal tunnel syndrome, morbid obesity, dyslipidemia, fatty infiltration of the liver, obstructive sleep apnea (last sleep study was 10-15 years ago per patient and she has gained about 100 lbs in that period) and chronic pain syndrome who had an elective BKA of the RLE on 10/19/2023 at [facility] by . Surgery went well and she had no unexpected complications. She was transferred to the acute inpt rehab unit at [facility] on 10/22/23 for 3 hours of therapy daily to restore function/independence at or near her level prior to the BKA. Blood sugars were uncontrolled at presentation to rehab. Dr. Sina Hilliard was consulted for diabetic management. With adjustments in the U-500 regimen and addition of lispro (custom sliding scale) he the blood sugars are well-controlled at discharge. She will follow-up with Dr. Hilliard as an outpatient. She received instruction in an 1800-calorie, carb consistent, cardiac diet by the dietitian. Patient was given several meal plans for an 1800-calorie, carb consistent diet to use as a guideline following discharge. I recommended she follow-up in the diabetic clinic and/or the [facility] at [facility] that are run by the dietitians. On an 1800-calorie diet she has lost approximately 15 pounds during her stay on rehab. Elisabet admitted to being quite depressed over the past 2 years dealing with the Charcot foot and her inability to ambulate. She was taking duloxetine 90 mg and was still quite depressed. She initially started on duloxetine for neuropathic pain in her feet but then had recurrent pain and Lyrica was added. She was weaned off duloxetine during her admission to rehab and started on Wellbutrin XL 150 mg daily. This was increased to 300 mg daily and she is tolerating it well with no constipation, no cephalgia and no insomnia. She does have dry mouth but this is multifactorial and related to other medications she is taking. Elisabet experienced acute renal failure while on rehab. A CT scan of the abdomen and pelvis was ordered to evaluate the kidneys. The CT scan showed a mild degree of left hydronephrosis and left hydroureter due to a 7.1 mm x 9.6 mm calculus in the distal one third of the left ureter. There was also a nonobstructive 2 mm calculus in the lower pole calyx of the left kidney. The kidneys were of normal size bilaterally. An incidental finding on the CT abdomen/pelvis was a right breast mass. Patient had an abnormal mammogram in 2018 but was lost to follow-up and never had a breast biopsy. She herself has had endometrial cancer in the past and her mother had endometrial and breast cancer. She was taken to surgery on 11/05/[address] Marga Mata for cystoscopy/uteroscopy and placement of a ureteral stent. She also had lithotripsy however there were a few small stones remaining. Dr. Mata recommended a CT abdomen/pelvis 2 weeks after the procedure and a CT scan was scheduled for her on 11/19/2023 after discharge from acute rehab. She was also scheduled for a diagnostic MMG and a R breat US on 4/25/24 following DC from rehab. Post operatively she had polyuria which was multifactorial and due to acute exacerbation CRF, relief of urinary tract obstruction, Large volume IV fluids. This has resolved and at the time of DC the intake is finally exceeding the urine OP. Her lungs are CTA and she has no peripheral edema. The creat just prior to DC is stable at 1.3. Stone analysis showed the stone to be 100% uric acid. She had kidney stones in the past and stone analysis at that time showed the stone to be 80% UA and 20% calcium. A uric acid level was elevated at 7.8 and after the polyuria resolved she was started on Allopurinol 100 mg daily. She will need a repeat CBC, CMP and a uric acid in 1 month. She will report any rashes to her PCP. the goal for the uric acid is 5 or less. Would increase the uric acid by 100 mg monthly until she reaches this goal. Elisabet did very well in therapy and was highly motivated to get better so that she could get a prosthesis and start walking again. At the time of discharge she is supervision/set/ Up for grooming, eating, bathing, upper body dressing and lower body dressing. She is standby assist for tub/shower transfer. She is able to use a toileting aid for hygiene well. She is able to propel the wheelchair 226 feet on various surfaces, including up and down ramps at supervision. She can do 13 sit to stands in 30 seconds at the supervision level. She is able to hop 15 feet using a bariatric front wheel walker. Elisabet was discharged home with [facility] on 11/19/23. She has appts scheduled for Dr. Kent, Aakash Dove CNP, Dr. Marga Mata and Dr. Sina Hilliard. Dr. Hilliard's office will call her to schedule an appointment. She will follow-up with Dr. Knapp to arrange a breast biopsy after the results of the diagnostic mammogram and right breast ultrasound are available. Physical Exam Const alert General Appearance: cooperative HEENT HEENT Narrative: The dry MM likely has a lot to do with Wellbutrin and Lyrica. Mouth: dry mucous membranes Resp clear to auscultation bilaterally Resp Narrative: no cough and no tachypnea. No conversational dyspnea. Effort and Inspection: Negative for tachypneic Auscultation: diminished lung sounds Cardio regular rate, regular rhythm and no gallops Cardio Narrative: Heart sounds are distant. No ectopy GI normal to inspection, nondistended, normoactive bowel sounds and soft to palpation GI Narrative: having regular BM's Extremity no calf tenderness Extremity Narrative: no significant peripheral edema. The stump is shrinking and we have been adding stockings to the dressing to keep the cast in place. Skin Skin Narrative: the medial corner of the incision has a scab. there is no DC from then area. The dressing was dry with no DC when we removed it today. Blair are intact. No sherif-incisional erythema and no significant increased warmth to touch. Rashes: no rashes Psych cooperative and affect normal Psych Narrative: sleeping well at night good appetite. Appearance: appropriate Attitude: No agitated Weight / BMI Weight Weight: 337 lb 4.916 oz Body Mass Index (BMI) 54.2 ABG / Lab / Microbiology Data Attestation: I reviewed the patient's lab results. 11/11/23 05:32 11/16/23 15:39 Laboratory: Laboratory Results - last 24 hr 11/17/23 16:54: POC Glucose 129 H 11/17/23 20:39: POC Glucose 121 H 11/18/23 06:35: POC Glucose 177 H 11/18/23 10:56: POC Glucose 156 H D/C Instructions Discharge Diet: - (1800 calorie, consistent carbohydrate diet with low salt and low fat. ) May resume sexual activity in: No Restrictions Weight Bearing Status: Full weight bearing Keep extremity elevated above heart level: Legs Call your doctor if your incision/area has: Continuous Slow Oozing, Sudden Increased Bleeding, Increased Pain/ Swelling, Increased Redness, Foul Smelling Discharge and Swelling at the incision site Call your doctor if you observe: Fever of 101 or Higher, Inability to urinate, Shortness of breath, Dizziness, Fainting spells, Chest pain, Increased palpitations (irregular heartbeat), Calf discomfort and Uncontrolled pain Suture Line Care: Avoid Pulling/Pushing and Avoid Pinching/Bending Cleanse incision/area with: Soap & Water and Keep Dressing Clean & Dry Pending Tests Upon Discharge: None Please Follow Up With: Aakash Dove [place], MARZIPAN MOLDER-C When: you will also need to follow up with Dr. Mata, Dr. Hilliard, Dr. Kent and Dr. Knapp. Meaningful Use Info Meaningful Use Meaningful Use Diagnoses (Choose all that apply): None applicable Ischemic Stroke Statin Dosing Therapy Reference: STATIN DOSE THERAPY REFERENCE: * Patients > 75 years receive moderate or high dose statin therapy. * Patients 75 years or YOUNGER should receive HIGH intensity statin dose unless contraindicated. You will be required to document reason for non-treatment if statin daily dose does not meet guidelines. HIGH DOSE STATIN THERAPY DAILY Atorvastatin > than or = to 40 mg Rosuvastatin > than or = to 20 mg Amlodipine + Atorvastatin > than or = to 2.5/40 mg Ezetimibe + Simvastatin 10/80 mg Simvastatin 80mg Discharge Plan Admission Admit Date/Time: 10/22/23 17:03 Primary Reason for Your Visit: Debility due to R BKA Attending Provider: Cristina Simon Primary Care Provider: Paola Corona Consulting Providers: Sina Hilliard; Natalie Chicas; Marga Mata Instructions Patient Instructions: Losing Weight for Heart Health, Kidney Stones: Are You at Risk?, Understanding Kidney Stones, Caring for Your Incision Additional Instructions / Restrictions: 1. Your weight is down 15 pounds since you arrived on rehab. YEAH. this has had a + effect on your BP. I was able to decrease the dose of the Lisinopril prior to DC from rehab. The dieticians at the hospital have a few clinics they operate. One is for management of diabetes and the other is called [facility] for people who are trying to lose weight. All you need is a referral from your PCP. They are both excellent programs. Fast foods and restaurant foods tend to be high in calories and salt. Making meals from scratch is always a good option and if you are unable to make a healthy meal then Healthy choice microwave dinners are an option. YOU CAN DO THIS.....DO NOT BE IN A HURRY, IT COMES OFF A LOT SLOWER THAN IT WENT ON. Exercise is very important in controlling blood sugars and weight. [facility] in [place] is an excellent facility. You can do the Nu-step and this is good cardiovascular exercise. Doing some work with weights is also good because it builds muscle and it helps to prevent osteoporosis. 2. Getting a pair of high top tennis shoes or wearing a ankle brace will help to stabilize the Left ankle. This is especially important since you are having to hop on the left leg for short distances. Can't afford any falls and fractures. 3. Your blood sugars are under much better control. If you can stick to 1800 calories You will have good blood sugar control and continue to lose weight. Dr. Hilliard's office will call you to schedule an appt. 4. The kidney stone was 100% uric acid. Your uric acid level was high at 7.8....normal is 2.6 - 6. Because you have now had 2 kidney stone events I want to see the uric acid 5 or less. You have been started on a medication called Allopurinol to help get the uric acid level less than 5. I am giving you some literature about kidney stones and how to prevent them. You have chronic kidney disease, more likely than not due to long standing diabetes and high blood pressure. There are 5 stages of kidney failure and you are stage 3a which is moderate. Lisinopril helps to preserve kidney function in diabetics and this is working to control BP and prevent further kidney damage. You have no significant amount of protein in your urine and this is a good thing. As the kidney function deteriorates the protein in the urine increase. 5. We have thrown a lot at you this admission to rehab. The kidney stone and acute kidney failure were a surprise and then finding the R breast mass on the CT scan of the abdomen and pelvis we did to look at the kidneys was a surprise BUT, now we know about it and can get things taken care of. Dr. Knapp is excellent and will take good care of you. I am ordering a mammogram.......she thinks they can do the mammogram seated and she is checking into this. You will also need an ultra sound of the breast to determine if the mass is cystic or solid. Before you can deal with a problem you have to know a problem exists. We would not have known about the mass if you did not have the CT scan.......now we can address this sooner rather than later. That's a good thing. 6. I think depression plays a big part in food addiction. You were taken off Cymbalta because it was no longer needed to control the neuropathic pain in the feet and it was obviously not treating depression. You are now taking Wellbutrin and tolerating it well. It is not only a good antidepressant but, it also helps to suppress appetite. There is another formulation of Wellbutrin and it combines the Wellbutrin and another drug called Naltrexone and is indicated for chronic weight management. This may be an option for you. The hospital does not have this medication on formulary and this is why I chose to use Wellbutrin alone. 7. You have worked very hard on getting more mobile and I am very pleased with your progress....you should be proud of yourself. I have no doubt you will do well with a prosthesis. The incision looks very good and there has been no breakdown. The stump has shrunk significantly since you arrive on rehab. 8. Diabetes is a tough disease, deidre if you have a food addiction. Most people do not feel bad with high blood sugars and so many people ignore good blood sugar control. The problem is that uncontrolled blood sugars lead to damage to the vascular system and then after 10-20 years of uncontrolled sugars you start to have problems with occlusion of the small arteries in the hands and feet and you get neuropathy. then the medium size arteries become involved and this leads to coronary artery disease, kidney disease, strokes and eye disease, I want you to keep 3 goals in mind. HGBA1C ,7, BP ,130/80 and LDL (bad cholesterol) <70. You should always know what your last lab for HGBA1C and LDL are and what your BP is running. 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 9. We have not had to give any short acting insulin recently for elevated blood sugars. I am giving you a prescription for Lispro to take before meals for elevated blood sugar. There is a sliding scale to use. 10. Good luck to you Elisabet. If there is anything I can do to help you along the way please do not hesitate to call. If you have any questions after leaving rehab please call me. OFFICE: [phone] CELL: [phone] PS: You can use Voltaren Gel on the trapezius muscles to help with pain and inflammation. You can also try Salon Pas (lidocaine patches) available over the counter to hep with pain control. Stretching helps to break the spasms. You may also want to consider purchasing a TENS unit......they are available at many local pharmacies and on [facility]. TENS = transcutaneous electrical nerve stimulator. Discharge Orders/Prescriptions Prescriptions: New ascorbic acid (vitamin C) 500 mg Tablet 1,000 mg PO DAILY Qty: 30 0RF Rx Instructions: Take this with the iron with food. calcium carbonate [Oyster Shell Calcium 500] 500 mg calcium (1,250 mg) Tablet 500 mg PO BREAKFAST Qty: 30 0RF bupropion HCl 300 mg Tablet Extended Release 24 Hr 300 mg PO DAILY Qty: 30 0RF lisinopril 20 mg Tablet 20 mg PO 0700 Qty: 30 0RF Daily Fiber (psyllium-aspart) 3 gram Powder In Packet 2 packet PO DAILY Qty: 120 0RF insulin lispro 100 unit/mL insulin pen 3 unit subcut TID PRN (Reason: elevated BS) Qty: 15 0RF Rx Instructions: 180-210 20 units 211-240 25 units 241-280 30 units >280 40 units allopurinol 100 mg tablet 100 mg PO DAILY Qty: 30 0RF oxycodone 5 mg capsule 5 mg PO Q6H PRN (Reason: pain) 7 Days Qty: 28 0RF Continued hydroxychloroquine [Plaquenil] 200 mg tablet 200 mg PO BID Enbrel 50 mg/mL (0.98 mL) syringe 50 mg SC QWEEK Hold Instructions: MD Ordered pregabalin [Lyrica] 150 mg capsule 150 mg PO QHS levothyroxine 175 mcg capsule 137 mcg PO DAILY ferrous sulfate [Feosol] 325 mg (65 mg iron) tablet 325 mg PO DAILY multivitamin 1 EACH tablet 1 ea PO DAILY Patient Comments: SUPPLEMENT metoprolol succinate 100 MG tablet 100 mg PO DAILY Patient Comments: HEART omeprazole 40 MG capsule 40 mg PO DAILY Patient Comments: HEARTBURN, GERD aspirin 81 MG tablet,delayed release (DR/EC) 81 mg PO DAILY Patient Comments: HEART HEALTH, STROKE PREVENTION simvastatin 20 MG tablet 20 mg PO QHS Patient Comments: CHOLESTEROL cetirizine 10 MG capsule 10 mg PO DAILY Patient Comments: ALLERGIES cyanocobalamin (vitamin B-12) 1,000 MCG tablet, sublingual 1,000 mcg PO DAILY Changed insulin regular hum U-500 conc 500 unit/mL (3 mL) insulin pen See Rx Instructions .ROUTE .COMPLEX 30 Days Qty: 5 0RF Rx Instructions: 145 units with breakfast 10 units with lunch 40 units at HS Discontinued losartan-hydrochlorothiazide 1 TAB tablet 1 tab PO DAILY Patient Comments: BLOOD PRESSURE (CONTAINS A DIURETIC) duloxetine 60 mg capsule,delayed release(/EC) 30 mg PO QHS Patient Comments: DEPRESSION/ANXIETY Referrals / Follow Up: Deng Roblero [Other] - 11/19/23 1:45 pm Ultrasound,right breast [Other] - 11/19/23 9:30 am (outpatient [facility] here at [facility]) CT,abdomen/pelvis [Other] - 11/19/23 9:00 am (go to first floor registration desk) Mammogram, r [Other] - 11/19/23 8:30 am [facility] [Outside] - 12/16/23 1:20 pm (Anabell De Leon NP) Marga Mata MD [Med Staff - Active Staff] - 12/03/23 10:45 am Sina Hilliard MD [Med Staff - Courtesy Staff] - 12/02/23 Steffanie Knapp MD [Med Staff - Active Staff] - (office will call with appointment ) Disposition Disposition (needs filled in before D/C Order can be placed): Home Health Service Charges/Coding Visit Charges Inpatient E&M: 05233 Disch Hosp >30min
--- NOTE | 2023-11-18 15:03 | CASEMGMT ---
Social Work SW met with patient at bedside to deliver [employer] Bariatric front wheeled walker. Patient completed proof of delivery form and a copy was left at bedside. Patient informed SW that she received a call from [facility] confirming home health care services. Patient will arrange SOC appointment with [facility]. Patient informed SW that she arranged meals on wheels through areas [facility] independently. Patient discussed utilizing [facility] to support patient with transportation as needed. SW reviewed discharge disposition with patient. Patient denies any needs at this time. Patient's to provide transportation at 8AM on 11/19/2023 Discharge: [facility] PT/OT; [employer] FWW. MANJEET Kang
[2023-11-18 16:42] LABS: Bedside Glucose 93 mg/dL (74-106)
[2023-11-18 17:37] VITALS: BP 114/74; PULSE 92; RESP 16; TEMP 36.9; O2SAT 100
[2023-11-18] MEDS: Pregabalin 75 MG Capsule 150 MG PO (21:08)
[2023-11-18] MEDS: Senna/Docusate Sodium 1 Tablet 2 TABLET PO (21:10)
[2023-11-18] MEDS: Atorvastatin Calcium 10 MG Tablet PO (21:11)
[2023-11-18] MEDS: Insulin U-500 UNITS/ML PEN 40 UNITS SC (21:12)
[2023-11-18 21:51] LABS: Bedside Glucose 131 mg/dL (74-106)
[2023-11-19 00:15] VITALS: BP 129/68; PULSE 69; TEMP 36.4; O2SAT 95
[2023-11-19 00:23] LABS: Bedside Glucose 89 mg/dL (74-106)
[2023-11-19 06:00] VITALS: BP 130/67; PULSE 67; RESP 16; TEMP 36.5
[2023-11-19] MEDS: Lisinopril 20 MG Tablet PO (06:22)
[2023-11-19] MEDS: Levothyroxine 137 MCG Tablet PO (06:22)
[2023-11-19] MEDS: Enoxaparin 40 MG/0.4 ML Syringe SC (06:22)
[2023-11-19] MEDS: Arthritis Pain Compound 60 CLICK TUBE TOPICAL (06:23)
[2023-11-19] MEDS: oxyCODONE 5 MG Tablet PO (06:28)
[2023-11-19] MEDS: Insulin U-500 UNITS/ML PEN 145 UNITS SC (06:39)
[2023-11-19] MEDS: Pregabalin 50 MG Capsule 100 MG PO (06:42)
[2023-11-19 07:07] LABS: Bedside Glucose 151 mg/dL (74-106)
[2023-11-19 07:52] VITALS: BP 130/67; PULSE 67
[2023-11-19] MEDS: Calcium (Elemental) 500 MG Tablet PO (07:52)
[2023-11-19] MEDS: Metoprolol(XL)Succ 100 MG Tablet PO (07:52)
[2023-11-19] MEDS: Vitamin E 400 UNITS Capsule PO (07:52)
[2023-11-19] MEDS: Multivitamins,Therapeutic Tablet 1 TABLET PO (07:52)
[2023-11-19] MEDS: Cyanocobalamin 500 MCG Tablet 1000 MCG PO (07:52)
[2023-11-19] MEDS: Aspirin E.C. 81 MG Tablet PO (07:52)
[2023-11-19] MEDS: Pantoprazole Sodium 40 MG Tablet PO (07:52)
[2023-11-19] MEDS: Hydroxychloroquine 200 MG Tablet PO (07:52)
[2023-11-19] MEDS: Loratadine 10 MG Tablet PO (07:53)
[2023-11-19] MEDS: buPROPion (XL) 300 MG TABLET.XL PO (07:53)
[2023-11-19] MEDS: Ascorbic Acid 500 MG Tablet 1000 MG PO (07:53)
[2023-11-19] MEDS: Ferrous Sulfate 325 MG Tablet PO (07:53)
--- NOTE | 2023-11-19 08:52 | NURSING ---
discharge home with . discharge instructions, medications and appointments reviewed. denies question or concerns
== END 2023-11-19 08:54 | disposition home health service (06) | DRG 560 ==
PROVIDERS: Urology; Admitting Provider Internal Medicine; PCP Physician Assistant; Visit Provider Internal Medicine
PROC: 0TJ98ZZ Inspection of Ureter, Via Natural or Artificial Opening Endoscopic (ICD-10-PCS; CPT 52352; principal; 2023-11-05 11:50)
DX: Z47.81 Encounter for orthopedic aftercare following surgical amputation (principal); Z68.43 Body mass index [BMI] 50.0-59.9, adult; N17.9 Acute kidney failure, unspecified; D62 Acute posthemorrhagic anemia; N13.2 Hydronephrosis with renal and ureteral calculous obstruction; I27.20 Pulmonary hypertension, unspecified; E11.610 Type 2 diabetes mellitus with diabetic neuropathic arthropathy; E11.42 Type 2 diabetes mellitus with diabetic polyneuropathy; E11.22 Type 2 diabetes mellitus with diabetic chronic kidney disease; N18.31 Chronic kidney disease, stage 3a; Z89.511 Acquired absence of right leg below knee; E66.01 Morbid (severe) obesity due to excess calories; Z79.4 Long term (current) use of insulin; M06.9 Rheumatoid arthritis, unspecified; I12.9 Hypertensive chronic kidney disease with stage 1 through stage 4 chronic kidney disease, or unspecified chronic kidney disease; K76.0 Fatty (change of) liver, not elsewhere classified; F32.9 Major depressive disorder, single episode, unspecified; E78.00 Pure hypercholesterolemia, unspecified; G47.33 Obstructive sleep apnea (adult) (pediatric); K21.9 Gastro-esophageal reflux disease without esophagitis; E86.9 Volume depletion, unspecified; G89.4 Chronic pain syndrome; Z79.82 Long term (current) use of aspirin; Z91.119 Patient's noncompliance with dietary regimen due to unspecified reason; Z79.899 Other long term (current) drug therapy; N63.10 Unspecified lump in the right breast, unspecified quadrant
CPT/HCPCS: 36415; 74176; 76000; 80048; 80053; 81001; 82040; 82360; 82570; 82962; 83036; 83735; 83935; 84100; 84156; 84300; 84540; 84550; 85014; 85018; 85025; 85027; 85652; 86140; 88300; 97110; 97116; 97162; 97166; 97530; 97535; 97542; 97802; 97803; J7030; J7120; A4216; C2617; J2405

== ENCOUNTER → 2023-11-19 | Outpatient (CLI) | payer OTHER, SELFPAY ==
--- NOTE | 2023-11-19 08:57 | CT_ITS ---
STUDY: CT ABDOMEN AND PELVIS WITHOUT CONTRAST REASON FOR EXAM: Female, 63 years old. KIDNEY STONE RADIATION DOSAGE (If Supplied By Facility): CTDIvol = ( 24.18 ) mGy, DLP = ( 1322.92 ) mGycm TECHNIQUE: Transaxial images were obtained from the dome of the diaphragm to the symphysis pubis without oral contrast, and without intravenous contrast. Sagittal and coronal images were reconstructed. Individualized dose optimization techniques were used for this CT. COMPARISON: Comparison is made with prior study dated November 03, 2023. FINDINGS: The visualized lung bases are unremarkable. Coronary artery calcification. The right breast was not included on the examination at this time. Normal liver. The patient is status post cholecystectomy. Borderline splenomegaly. Normal pancreas. Normal bilateral adrenal glands. Normal right kidney. A 2.5 mm calculus is seen in the lower pole calyx of the left kidney. A left-sided double-J stent catheter is seen with the proximal tip in the left renal pelvis and distal tip in the bladder. No evidence of hydronephrosis at this time. Normal visualized stomach. Normal small intestine. There are scattered colonic diverticula consistent with diverticulosis. There is non-visualization of the appendix. There is scattered atherosclerotic calcification of the abdominal aorta, without a demonstrated aneurysm. Normal inferior vena cava. Normal retroperitoneum. Normal urinary bladder. There is absence of the uterus consistent with a prior hysterectomy. Normal abdominal wall. Disc space narrowing at the L4-L5 and L5-S1 levels. CT/Abdomen/Pelvis without Cont IMPRESSION: Status post left double-J stent catheter placement. No evidence of hydronephrosis at this time. Electronically Signed: Michele Gilliland MD at 9:35 EDT ,
--- NOTE | 2023-11-19 09:16 | BI_ITS ---
MAMMOGRAPHY - BILATERAL DIAGNOSTIC REASON FOR EXAM: Female, 63 years old. Right breast mass seen on prior CT scan. PERTINENT HISTORY: Non-contributory. TECHNIQUE: Digital bilateral breast kavon (3D mammographic acquisition) in the CC and MLO projections. 2-D mediolateral oblique (MLO) and craniocaudad (CC) views of both breasts were obtained. Exaggerated right craniocaudad view was obtained as well. CAD: Full Field Digital Mammography with Computer Added Detection was performed. COMPARISON: Comparison is made with prior outside examination dated January 14, 2018. FINDINGS: Breast Composition: The breasts are heterogeneously dense, which may obscure small masses. There is a 1.5 cm x 2.2 cm irregular mass in the deep lateral aspect of the right breast. Correlation with ultrasound is recommended. No other significant abnormalities are identified. BI/DIAG MAMM W/CAD, BILAT IMPRESSION: 1.5 cm x 2.2 cm irregular mass in the deep lateral aspect of the right breast. Correlation with ultrasound recommended. ASSESSMENT CATEGORY: BIRADS Category 0: Incomplete. Need additional imaging evaluation. A letter regarding these results will be sent to the patient by the facility within 30 days. Approximately 10% of breast cancers are not detected by mammography. A normal mammogram should not delay biopsy of a clinically suspicious abnormality. Electronically Signed: Michele Gilliland MD at 11:20 EDT ,
--- NOTE | 2023-11-19 09:16 | US_ITS ---
STUDY: ULTRASOUND BREAST - RIGHT REASON FOR EXAM: Female, 63 years old. Right breast mass. Abnormal mammogram. TECHNIQUE: Axial and longitudinal images of the RIGHT breast were performed with a high resolution ultrasound transducer. # OF IMAGES: 33 COMPARISON: Comparison is made with prior mammogram done earlier today. FINDINGS: RIGHT Breast: There is a 1.8 cm x 2.3 cm x 2.2 cm hypoechoic irregular mass at the 6:00 position of the breast at 5 cm from the nipple. A neoplastic process should be ruled out. Biopsy recommended. US/Breast Limited Unilateral IMPRESSION: 1.8 cm x 2.3 cm x 2.2 cm hypoechoic irregular mass at the 6:00 position of the breast at 5 cm from nipple. Biopsy recommended. ASSESSMENT CATEGORY: BIRADS Category 5: Highly Suggestive of Malignancy - Appropriate Action Should Be Taken. A letter regarding these results will be sent to the patient by the facility within 30 days. Electronically Signed: Michele Gilliland MD at 8:54 EDT ,
--- NOTE | 2023-12-01 11:47 | PCM.PN.BLA ---
Progress Note 12/01/2023 Elisabet called me and complained of a dry cough. She thinks it may be due to Lisinopril. I discontinued Lisinopril and started her on Cozaar 50 mg daily. The RX was faxed to [facility] in [place]. Assessment & Plan Assessment/Plan (1) Cough: (2) Benign essential HTN: PLAN: Plan 1. Dc the PETER and start an ARB to see if the cough resolves.
--- NOTE | 2023-12-11 11:31 | PCM.PROGNOTE ---
Subjective Subjective Elisabet called me today to say that she had severe anxiety for a few days at the beginning of the week. She could not sleep or eat and felt as though she was going to . Her blood sugars went up. She had an appt with Dr. Oneil on Thursday to discuss the results of the breast biopsy which was invasive ductal CA. HE offered either have a lumpectomy and 6 weeks of radiation or have a mastectomy with lymph node dissection. If the nodes are negative she will not need radiation. If they are + then she would need to have 6 weeks of radiation. She will also need at least 5 years of adjuvant hormonal therapy. She has been unable to make a decision. She has had ongoing medical problems for at least a year now and recently had a BKA and now has to deal with the cancer diagnosis. I think she is overwhelmed. Since she will be having surgery and possibly radiation I feel she needs to be on scheduled medication with a benzo to use as back up if she has a panic attack. Prior to being told the pathology report she was doing well on Wellbutrin for depression and no panic attacks after leaving rehab until the day she was given the options by Dr. Oneil. Will continue the Wellbutrin at 300 mg XL daily in the AM. Add Buspar 5 mg TID and call in Xanax 0.5 mg to be used PRN for panic attack. She will call me nest week to let me know how she is doing. She has her first appt with her new Primary care provider, Anabell De Leon NP, next week.
== END | disposition home or self-care (01) ==
PROVIDERS: PCP Physician Assistant; Referring Provider Surgery; Visit Provider Internal Medicine
DX: N20.0 Calculus of kidney (principal); N63.10 Unspecified lump in the right breast, unspecified quadrant
CPT/HCPCS: 74176; 76642; 77062; 77066; G0279

== ENCOUNTER → 2023-11-26 | Outpatient (CLI) | payer OTHER, SELFPAY ==
--- NOTE | 2023-11-26 | IMM_PTH ---
PATIENT: KACY KEEN LOC: [facility] U#:[id number] AGE/SX: 63/F ROOM: RE11/26/[address]: Dr. Steffanie Knapp MD : 1960 BED: DIS: 11/26/2023 SPEC #: [id number] RECD: 11/30/23 11:08 STATUS: ELIANA REQ #: [id number] [place]: 11/26/23 00:[address]: Steffanie Knapp DEPT: IMMUNOHISTOCHEMISTRY RECD BY: Estrada Heaton ENTERED: 11/30/23 11:09 SP TYPE: IMMUNO OTHR DR: JAQUI Bolivar Tissues: Breast, NOS Procedures: CALPONIN-1 (add) CK5-6 (add) CK8 (add) E-CAD (add) HER2 GRAY (add) KI-67 (add) P53 (add) UT (add) P40 (add) ER (initial) PHYSICIAN & INSTITUTION [facility] [phone] SPECIMEN INFORMATION: Tissue Source: Right breast tissue Clinical Info: Right breast mass Specimen Number: [id number] CPT code: 32315,97885a6 METHODOLOGY: Deparaffinized sections of prefer/formalin-fixed tissue or PAP/DQ stained slides are incubated with monoclonal/polyclonal antibodies/oligonucleotide probes. Localization is made via biotin free immunoperoxidase method. Appropriate controls are performed and reacted as expected. Results on target cell population are indicated in the following table: RESULTS: ANTIBODY / CLONE RESULT E-Cad (ECH-6) positive CK8 ([id number]) positive Calponin-1 (XP317Q) negative CK5-6 (D5 & 1684) negative P40 (BC28) negative P53 (DO-7) negative (null pattern) Ki-67 (30-9) positive, moderate to high ~70% MORPHOMETRIC ANALYSIS ER (clone 6F11) >95%, strong intensity UT (clone 16/1E2) 0 Her-2Neu (clone CB11) 1+ The prognostic test for HER2 is performed on formalin-fixed paraffin embedded tissue. A 3+ (positive) staining pattern is defined as intense, homogeneous, complete, circumferential membranous staining in >10% of contiguous tumor cells. A similar weak (2+) staining pattern is interpreted as equivocal. MENDEL follow-up testing is recommended for all equivocal cases. Positivity/negativity for ER/UT is reported if > or < 1% of the tumor cells are immuno- reactive, respectively. The ASCO/CAP criteria is used for scoring. Reference: Journal of Clinical Oncology, 2013; 31:4420-1994 & 2010; 16:5773-0614. Ischemic time: Less than one hour. Duration of fixation: 6 Hrs; Sample Adequate: Yes. These assays have not been validated on decalcified tissues. Results should be interpreted with caution given the likelihood of false negativity on decalcified specimens or fixation greater than 72 hours. Alternative testing methods (FISH/dualISH for Her2; gene expression for ER) are recommended, if applicable. Please notify the laboratory if additional testing is required. These tests were developed and their performance characteristics determined by [facility]. They may not have been cleared or approved by the U.S. Food and Drug Administration. The FDA has determined that such clearance or approval is not necessary. The above immunohistochemical/dualISH markers are ordered and reviewed by the Pathologist. INTERPRETATION: Right breast, core biopsy: Invasive ductal carcinoma. Positive for estrogen receptors (favorable prognostic indicator). Negative for progesterone receptors (favorable prognostic indicator). Negative for overexpression of YHV1cdk. CELESTINO/mr 12/01/23
--- NOTE | 2023-11-26 13:00 | BRBX_PTH ---
PATIENT: KACY KEEN LOC: [facility] U#:[id number] AGE/SX: 63/F ROOM: RE11/26/[address]: Dr. Steffanie Knapp MD : 1960 BED: DIS: 11/26/2023 SPEC #: [id number] RECD: 11/26/23 15:37 STATUS: ELIANA KATHERINE #: [id number] [place]: 11/26/23 13:[address]: Steffanie Knapp DEPT: SURGICAL PATHOLOGY RECD BY: Rose Lemus ENTERED: 11/27/23 10:04 SP TYPE: BREAST BX OTHR DR: JAQUI Bolivar Tissues: Right breast, NOS Procedures: Surgery Specimen Level IV HEADER OPERATION: Right breast mass biopsy PRE-OP DIAGNOSIS: Right breast mass TISSUE SUBMITTED: Right breast tissue MICROSCOPIC DIAGNOSIS Right breast, core biopsy: Invasive ductal carcinoma. See cancer summary in the comment section. SJ/ 11/30/23 COMMENT INVASIVE BREAST CANCER SUMMARY: Procedure: Needle core biopsy Specimen Laterality: Right Tumor site: Not specified Histologic type: Invasive ductal carcinoma Provisional Histologic grade (Veronica score): Glandular/Tubule Differentiation Score: 3 Nuclear Pleomorphism Score: 2 Mitotic Rate Score: 1 Overall Grade: 2 (score of 6) Tumor Size (greatest dimension): The tumor measures 1.2cm in greatest length Ductal Carcinoma in situ: Not identified Angiolymphatic Invasion: not identified. Microcalcifications: not present. Additional Findings: none Breast Marker Study: [id number] ER: positive (>95%, strong intensity) [place]: negative (0%) Her2: negative (1+) Ki67: positive, moderate to high, ~ 70% [id number]: not performed PATHOLOGIC STAGE: not applicable The above summary is in compliance with [employer] [place] Path[employer] (CAP) Cancer Protocols Checklist and [place] Joint Committee on Cancer (AJCC), Staging Manual, 8th Ed. Immunohistochemistry ([id number]) supports the above diagnosis. MICROSCOPIC DESCRIPTION Slides are reviewed. GROSS DESCRIPTION Received in fixative is one container labeled with the patient's name and designated Right breast tissue. The specimen consists of three cores of light snowden soft tissue. Each core has an estimate of 1.2cm and a maximal diameter of 0.1cm. The specimen is submitted in its entirety in one cassette. Ischemic Time: 1 minute Fixation Time: 6 hours AM/mr 11/27/23 TC: 0 CPT:66821
== END | disposition home or self-care (01) ==
LOC: LABSPEC 15:48
PROVIDERS: PCP Physician Assistant; Referring Provider Surgery; Visit Provider Surgery
DX: N63.10 Unspecified lump in the right breast, unspecified quadrant (principal)
CPT/HCPCS: 88305; 88341; 88342

== ENCOUNTER → 2023-12-03 | Outpatient (CLI) | payer OTHER, SELFPAY ==
[2023-12-03 11:37] LABS: ALB/GLOB Ratio 1.1 RATIO (0.9-2.4); AST(SGOT) 23 U/L (15-37); Alanine Aminotransfer ALT/SGPT 29 U/L (13-56); Albumin, Serum 3.7 g/dL (3.2-5.0); Alkaline Phosphatase 103 U/L (45-117); Anion Gap 4 (5-15); BUN 21 mg/dL (7-18); BUN/Creat Ratio 17.4 RATIO (10-20); Calcium,Total 9.1 mg/dL (8.5-10.1); Chloride 106 mmol/L (98-107); Cholesterol 109 mg/dL (200); Creatinine, Serum 1.21 mg/dL (0.55-1.02); EST Glomerular Filtration Rate 48 mL/min (>60); Est Glom Filt Rate - Afr Amer 58 mL/min (>60); Globulin 3.4 g/dL (2.2-4.2); Glucose 120 mg/dL (74-106); High Density Lipoprotein 38 mg/dL; Protein, Total 7.1 g/dL (6.4-8.2); Sodium Level 139 mmol/L (136-145); T4 Free Direct 1.17 ng/dL (0.76-1.46); Triglycerides 167 mg/dL; Very Low Density Lipoprotein 33 mg/dL (5-40)
== END | disposition home or self-care (01) ==
LOC: LAB 10:22
PROVIDERS: PCP Physician Assistant; Referring Provider Nurse Practitioner Family; Visit Provider Nurse Practitioner Family
DX: E03.9 Hypothyroidism, unspecified (principal)
CPT/HCPCS: 36415; 80053; 80061; 84439; 84443

== ENCOUNTER 2023-12-22 13:45 | Outpatient (RCR) | payer OTHER, SELFPAY ==
[2023-12-08 14:01] VITALS: BP 139/48; PULSE 78; RESP 18; TEMP 36.4; BMI 54.1
--- NOTE | 2023-12-08 18:05 | PCM.WC.HP ---
History of Present Illness Date of Service: 12/08/23 Chief Complaint: Surgical wound dehiscence of the right below-knee amputation stump incision History of Wound: This is a 63-year-old morbidly obese female with multiple pre-existing medical conditions. She is a longstanding diabetic and has been poorly controlled. She suffers from diabetic peripheral neuropathy. She developed a right Charcot foot deformity, with collapse of her right arch. Her condition resulted in a right below-knee amputation which was performed at [facility] by Dr. Narayan on October 19, 2023. The patient had a relatively uncomplicated postoperative course, he was transferred to the [facility] rehabilitation unit, where she continued to convalesce for several weeks. Several weeks postoperatively, Dr. Damon's staff removed the patient's surgical luisana, and the patient subsequently developed a dehiscence. She has been referred to the [facility] for management of her right below-knee amputation stump incisional dehiscence. The patient has been using Neosporin and gauze topically. She has also been using a Coban wrap and has been fitted with a stump supervisor tree trimming by [employer]. Patient's multiple pre-existing medical conditions are listed elsewhere. Of note, she underwent right breast needle biopsy on November 26, 2023, which was indicative of invasive ductal carcinoma. She is under the care of other providers for management of this recent diagnosis. Laboratory results have been obtained dated December 03, 2023, with results as follows: Sodium 139, potassium 4.0, chloride 106, BUN 21, creatinine 1.21, glucose 120, calcium 9.1, total bilirubin 0.60, AST 23, ALT 29, alkaline phosphatase 103, total protein 7.1, albumin 3.7. [facility] Medical History Surgical wound dehiscence Right leg swelling Diabetic neuropathy BRITT (obstructive sleep apnea) History of endometrial cancer Rheumatoid arthritis Diverticulosis Chronic renal failure, stage 3 (moderate) Pulmonary hypertension GERD (gastroesophageal reflux disease) Hyperlipidemia History of kidney stones Breast cancer in female Morbid obesity with BMI of 50.0-59.9, adult Hydronephrosis Ureteral calculus Charcot ankle Morbid obesity with BMI of 50.0-59.9, adult Diverticulosis Diabetes mellitus, type 2 Chronic renal failure (CRF), stage 3a Anemia Rheumatoid arthritis Chronic pain CPAP (continuous positive airway pressure) dependence Pulmonary hypertension Thyromegaly Hx of supraventricular tachycardia Nephrolithiasis Rosacea Fatty liver External hemorrhoid GERD without esophagitis Benign essential HTN Bilateral carpal tunnel syndrome Hyperlipidemia Low vitamin B12 level Multinodular goiter Tubular adenoma Adenocarcinoma of endometrium Home Medications ?Medication ?Instructions ?Recorded ?Last Taken ?Type aspirin 81 mg tablet,delayed 81 mg PO DAILY Heart health 01/11/16 07/03/17 History release cetirizine 10 mg capsule 10 mg PO DAILY Allergies 01/11/16 Unknown History metoprolol succinate 100 mg 100 mg PO DAILY BP 01/11/16 07/03/17 History tablet,extended release 24 hr multivitamin 1 ea PO DAILY Supplement 01/11/16 Unknown History omeprazole 40 mg capsule,delayed 40 mg PO DAILY GERD 01/11/16 07/03/17 History release simvastatin 20 mg tablet 20 mg PO QHS Cholestrol 01/11/16 Unknown History cyanocobalamin (vitamin B-12) 1,000 mcg PO DAILY Supplement 07/02/17 Unknown History 1,000 mcg sublingual tablet etanercept 50 mg/mL (1 mL) 50 mg subcut QWEEK Ask dr 04/28/18 Unknown History subcutaneous syringe (Enbrel) hydroxychloroquine 200 mg tablet 200 mg PO BID Platelets 04/28/18 Unknown History (Plaquenil) pregabalin 150 mg capsule (Lyrica) 150 mg PO QHS Nerve pain 06/14/18 Unknown History ferrous sulfate 325 mg (65 mg 325 mg PO DAILY supplement 04/25/20 Unknown History iron) tablet (Feosol) allopurinol 100 mg tablet 100 mg PO DAILY #30 tabs 11/18/23 Unknown Rx ascorbic acid (vitamin C) 500 mg 1,000 mg (2 x 500 mg) PO DAILY #30 11/18/23 Unknown Rx tablet tabs calcium carbonate (Oyster Shell 500 mg PO BREAKFAST #30 tabs 11/18/23 Unknown Rx Calcium 500) insulin lispro 100 unit/mL 3 unit (0.03 mL) subcut TID PRN 11/18/23 Unknown Rx subcutaneous pen elevated BS #15 mL insulin regular hum U-500 conc 500 See Rx Instructions .Route 11/18/23 Unknown Rx unit/mL(3 mL) subcut pen .COMPLEX Blood sugar 30 days #5 pens oxycodone 5 mg capsule 5 mg PO Q6H PRN pain 7 days #28 11/18/23 Unknown Rx caps psyllium husk (aspartame) 3 gram 2 packet PO DAILY #120 ea 11/18/23 Unknown Rx oral powder packet (Daily Fiber (psyllium-aspartame)) pregabalin 100 mg capsule (Lyrica) 100 mg PO BID #60 caps 11/19/23 Unknown Rx blood sugar diagnostic (OneTouch #100 ea 12/03/23 Unknown Rx Ultra Test strips) blood-glucose sensor (Dexcom G6 #9 ea 12/03/23 Unknown Rx Sensor device) blood-glucose transmitter (Dexcom #1 ea 12/03/23 Unknown Rx G6 Transmitter device) bupropion HCl 300 mg 24 hr tablet, 300 mg PO DAILY #90 tabs 12/03/23 Unknown Rx extended release levothyroxine 300 mcg tablet 300 mcg PO DAILY #30 tabs 12/03/23 Unknown Rx losartan 50 mg tablet (Cozaar) 50 mg PO DAILY #90 tabs 12/03/23 Unknown Rx OneTouch Delica Plus Lancet 33 #100 ea 12/04/23 Unknown Rx gauge (lancets) blood sugar diagnostic (OneTouch #100 ea 12/04/23 Unknown Rx Ultra Test strips) lisinopril 20 mg tablet 20 mg PO 12/08/23 Unknown History Allergy/AdvReac Type Severity Reaction Status Date / Time No Known Allergies Allergy Verified 12/03/23 08:45 Family History Mother Ovarian cancer Hypertension Arthritis Uterine cancer Fibrocystic disease of breast Hypothyroid Father , Age 86-CHF Hypertension Arthritis Diverticulitis of colon Depression CAD (coronary artery disease) Sister Hypertension Depression CVA (cerebral vascular accident) Fibrocystic disease of breast Diabetes Bleeding disorder Portal hypertension Surgical History History of tonsillectomy History of carpal tunnel release History of cardiac radiofrequency ablation History of total abdominal hysterectomy and bilateral salpingo-oophorectomy History of below-knee amputation S/P cystoscopy with ureteral stent placement History of right below knee amputation History of hand surgery H/O cardiac radiofrequency ablation (02/15/13) History of right and left heart catheterization (07/03/17) H/O colonoscopy H/O abdominal hysterectomy H/O carpal tunnel repair Previous section History of tonsillectomy Hx of cholecystectomy Surgical menopause Social History Smoking Status: Never smoker second hand exposure: No alcohol intake: never substance use type: does not use caffeine: No Vital Signs Vital Signs Vital Signs: 12/08/23 14:01 Temperature 97.5 F L Temperature Source Temporal Pulse Rate 78 Respiratory Rate 18 Blood Pressure 139/48 H Blood Pressure Mean 78 Blood Pressure Source Monitor Blood Pressure Position Semi-Fowlers Blood Pressure Location Left Arm Oxygen Delivery Method Room Air Weight Weight: 335 lb Body Mass Index (BMI) 54.1 Physical Exam Const alert, oriented x3, no apparent distress and well nourished Constitutional Narrative: The patient is noted to be morbidly obese, with a BMI of 54.1. General Appearance: cooperative, comfortable, well kempt and well developed Orientation / Consciousness: awake, oriented to person, oriented to place and oriented to time Exam Limitations: no limitations HEENT normocephalic and head/scalp atraumatic Head and Scalp: normal to inspection, normocephalic and atraumatic Face and Sinus: normal facial exam External Ear: external ears normal Eyes PERRL, EOMs intact bilaterally and conjunctivae normal General Eye: normal appearance of both eyes Neck full ROM Resp normal respiratory effort, normal air movement, no retractions and no use of accessory muscles Effort and Inspection: able to speak in complete sentences Extremity no calf tenderness General Extremity: Negative for clubbing or cyanosis Skin Wound Narrative: A right below-knee amputation is noted. There is slight swelling noted in the stump. There is no sign of infection or cellulitis. The preponderance of the stump incision is well-approximated and healing well. The medial portion of the incision is dehiscent, and is noted to contain a large amount of necrotic and nonviable tissue. The below-knee amputation site reveals a modification of the typical anterior and posterior flap, with an extension of the incision posteriorly, which also reveals a slight dehiscence as well. Thus, there are 2 areas of dehiscence, with a superior and inferior portion. The more superior portion is much larger, with a much greater amount of necrotic and nonviable tissue. Dimensions of the dehiscent wounds are documented elsewhere. Neuro oriented x3, CN's II-XII intact bilaterally, moves all extremities and no focal motor deficits Sensorium / Orientation: awake, alert, oriented to person, oriented to place and oriented to time Psych Appearance: grossly normal and appropriate Attitude: calm Activity / Motor Behavior: appropriate eye contact Speech: normal speech Mood & Affect: euthymic mood Thought Process: normal thought process Thought Content: normal thought content Attention / Concentration: attention grossly intact Debridement Note Debridement Note Wound debrided: Right below-knee amputation stump incision Laterality: Right Type of Debridement: Excisional debridement Anesthesia Used: 5% Lidocaine Gel Depth: Down to and including healthy tissue and in the subcutaneous layer Percentage of wound debrided: 100 Instrument Used: 5mm curette, #15 blade and Forceps Severity: Fat Layer Exposed Amount of bleeding with debridement: Mild Bleeding Controlled with: Compression and gauze Patient tolerated procedure: Patient tolerated procedure well Debridement Free Text: Using a forceps and 15 scalpel blade, the necrotic and nonviable tissue was excised from the patient's gaping, dehiscent surgical wound in the right below-knee amputation stump. Post-Debridement Measurements and Additional Note: Post-Debridement Measurements/Treatment - Nurse 1 - General Ulcer Assessment Start: 12/08/23 13:58 Freq: Status: Active Protocol: [email or web address] Activity Type Activity Date Activity User E-sign Co-sign Detail Recorded Client Recorded Date Recorded By Document 12/08/23 14:01 [id number] 12/08/23 14:25 KW 12/08/23 14:01 - Today's Visit Information Type of service Initial Visit Arrival Mode Wheelchair Accompanied by Patient Identification Verified (Name & Yes ) Height and Weight Height 5 ft 6 in Weight 335 lb Weight in Pounds 335.0 lbs Body Mass Index (BMI) 54.1 BMI Classification Obese BSA - Yanely 2.49 Vital Signs Temperature (97.8 F-99.1 F) 97.5 F L Temperature Source Temporal Pulse Rate (60-100) 78 Pulse Location Monitor Respiratory Rate (12-18) 18 Respiratory rate source Observation Oxygen Delivery Method Room Air Blood Pressure (90/60-120/80) 139/48 H Blood Pressure Mean 78 Source Monitor Position Semi-Fowlers Blood Pressure Location Left Arm Pain Scale: 0-10 Numeric Is Patient Pain Free? Yes Communication Assessment Preferred language Palauan Architectural Engineer Required No Able to Read Yes Able to Write Yes Communication Tools None Caregiver Communication Skills No Impairment Impairment Right Hearing Abillity Normal Left Hearing Abillity Normal Visual Assistive Devices Glasses Teaching Assessment Preferences Verbal,Written, Demonstration Barriers to Learning None Readiness To Learn Excellent Willingness to Engage in Self Management High Activies Readiness to Engage in Self Management High Activities Anxiety Level Calm Cooperation Cooperative Perception Coherent Interest in Health Problem Asks Questions Education Importance Acknowledges Need Does Patient Smoke tobacco or other Yes substances Smoking Status Never smoker Is Patient Diabetic Yes Functional Assessment Recent Decline in Ability to Perform Ambulation, Transferring Culture/Worship/Burling And Joining Supervisor Cultural/Worship Needs that may affect No Treatment Plan Would you allow our [facility] java technical manager to No meet you for the purpose of spiritual/ emotional support? Burling And Joining Supervisor to contact place of nondenominational No WC - Nurse 1 - General Ulcer Measurement Start: 12/08/23 13:58 Freq: Status: Active Protocol: Activity Type Activity Date Activity User E-sign Co-sign Detail Recorded Client Recorded Date Recorded By Document 12/08/23 14:01 [id number] [id number] 12/08/23 14:25 KW 12/08/23 14:01 Wound Center Nurse 1 #1 RT superior stump -Current Size (cm) - Length 5.5 -Current Size (cm) - Width 3 -Current Size (cm) - Depth 0.3 -Total Square Cm 16.5 -Date of Last Picture (Recall this 12/08/23 field) -Exudate Amt Small -Exudate Type Serosanguineous -Wound Margin Distinct, Outline Attached -Granulation Amt Small (1-33%) -Granulation Quality Red -Necrosis Amt Large (67-100%) -Necrotic Tissue Type Adherent Slough -Texture (Fadumo-wound Skin Appearance) Assessed -Moisture (Fadumo-wound Skin Appearance) Assessed -Color (Fadumo-wound Skin Appearance) Assessed, Erythema -Temperature (Fadumo-wound Skin No Abnormality Appearance) (Pt Warm) -Tenderness on Palpation (Fadumo-wound No Skin Appearance) -Ulcer Cleansing Rinsed/ Irrigated with Saline -Foul Odor after Cleansing No -Anesthetic Used 5% Lidocaine Gel WC - Nurse 2 - General Ulcer CM Notes Start: 12/08/23 13:58 Freq: Status: Active Protocol: Activity Type Activity Date Activity User E-sign Co-sign Detail Recorded Client Recorded Date Recorded By Document 12/08/23 14:49 [place] [id number] 12/08/23 14:57 DS 12/08/23 14:49 Wound Center Nurse 2 #2inferior medial stump -Time 14:56 -Correct Patient Yes -Correct Side, Site, Position Yes -Correct Procedure Yes -Procedure Performed Yes -Type of Procedure Debridement -Clinical Debridement Subcutaneous -Tissue Removed Subcutaneous -Post Debridement (cm) - Length 0.5 -Post Debridement (cm) - Width 0.6 -Post Debridement (cm) - Depth 0.3 -Total Square (Post) (cm) 0.30 -Area of Debridement (cm) - Length 0.5 -Area of Debridement (cm) - Width 0.6 -Total Square (Area) (cm) 0.30 -Tunneling No -Undermining/Tunneling No -Circular Undermining No -Wound/Ulcer Outcome Not Healed -Ulcer Cleansing Rinsed/ Irrigated with Saline -Bleeding Controlled with Pressure -Treatment Response Procedure Tolerated Well -Debridement - Subq, 1st 20sq cm Yes #1 RT superior stump -Time 14:49 -Correct Patient Yes -Correct Side, Site, Position Yes -Correct Procedure Yes -Procedure Performed Yes -Type of Procedure Debridement -Clinical Debridement Subcutaneous -Tissue Removed Subcutaneous -Post Debridement (cm) - Length 2.0 -Post Debridement (cm) - Width 2.7 -Post Debridement (cm) - Depth 0.4 -Total Square (Post) (cm) 5.40 -Area of Debridement (cm) - Length 2.0 -Area of Debridement (cm) - Width 2.7 -Total Square (Area) (cm) 5.40 -Tunneling No -Undermining/Tunneling No -Circular Undermining No -Wound/Ulcer Outcome Not Healed -Ulcer Cleansing Rinsed/ Irrigated with Saline -Bleeding Controlled with Pressure -Treatment Response Procedure Tolerated Well -Assistive Device(s) Walker -Debridement - Subq, 1st 20sq cm No Pain Scale: 0-10 Numeric Is Patient Pain Free? Yes WC - Nurse 3 - General Ulcer D/C NN Start: 12/08/23 13:58 Freq: Status: Active Protocol: Activity Type Activity Date Activity User E-sign Co-sign Detail Recorded Client Recorded Date Recorded By Document 12/08/23 15:27 [place] [id number] 12/08/23 15:27 RB 12/08/23 15:27 Wound Care Center Nurse 3 #2inferior medial stump -Ulcer Cleansing Rinsed/ Irrigated with Saline -Primary Dressing Applied Promogran Nicole Matter -Primary Dressing Covered/Secured with Dry Gauze,Dry Gauze & Roll Gauze,Secured with Tape -Promogran Nicole Matter 1 #1 RT superior stump -Ulcer Cleansing Rinsed/ Irrigated with Saline -Other Dressing nicole -Primary Dressing Covered/Secured with Dry Gauze,Dry Gauze & Roll Gauze,Secured with Tape Treatment Response Procedure Tolerated Well Pain Scale: 0-10 Numeric Is Patient Pain Free? Yes WC - Visit Discharge Discharge Condition Stable Ambulatory Status Wheelchair Transportation Private Auto Medication Reconcilliation completed & No provided to patient/care provider Clinical Summary of Care Provided Yes Assessment/Plan Assessment/Plan (1) Surgical wound dehiscence: CODE(S): T81.31XA - Disruption of external operation (surgical) wound, not elsewhere classified, initial encounter QUALIFIERS: Encounter type: initial encounter Qualified Code(s): T81.31XA - Disruption of external operation (surgical) wound, not elsewhere classified, initial encounter (2) History of right below knee amputation: CODE(S): Z89.511 - Acquired absence of right leg below knee (3) Morbid obesity with BMI of 50.0-59.9, adult: CODE(S): E66.01 - Morbid (severe) obesity due to excess calories; Z68.43 - Body mass index [BMI] 50.0-59.9, adult (4) Diabetes mellitus, type 2: CODE(S): E11.9 - Type 2 diabetes mellitus without complications QUALIFIERS: Diabetes mellitus correction insulin use: with correction use Diabetes mellitus complication status: with kidney complications Diabetes mellitus complication detail: with chronic kidney disease Chronic kidney disease stage: stage 3 (moderate) Chronic kidney disease stage 3 subtype: stage 3a (GFR 45-59) Qualified Code(s): E11.22 - Type 2 diabetes mellitus with diabetic chronic kidney disease; N18.31 - Chronic kidney disease, stage 3a; Z79.4 - residential (current) use of insulin (5) Below knee amputation: CODE(S): S88.119A - 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, unspecified lower leg, initial encounter QUALIFIERS: Encounter type: sequela Laterality: bilateral Qualified Code(s): S88.111S - 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, right lower leg, sequela; S88.112S - 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, left lower leg, sequela (6) Hypothyroid: CODE(S): E03.9 - Hypothyroidism, unspecified QUALIFIERS: Hypothyroidism type: acquired Qualified Code(s): E03.9 - Hypothyroidism, unspecified (7) Benign essential HTN: CODE(S): I10 - Essential (primary) hypertension (8) Breast cancer in female: CODE(S): C50.919 - Malignant neoplasm of unspecified site of unspecified female breast (9) History of kidney stones: CODE(S): Z87.442 - Personal history of urinary calculi (10) Physical debility: CODE(S): R53.81 - Other malaise (11) Hx of supraventricular tachycardia: CODE(S): Z86.79 - Personal history of other diseases of the circulatory system (12) Hyperlipidemia: CODE(S): E78.5 - Hyperlipidemia, unspecified (13) GERD (gastroesophageal reflux disease): CODE(S): K21.9 - Gastro-esophageal reflux disease without esophagitis (14) Pulmonary hypertension: CODE(S): I27.20 - Pulmonary hypertension, unspecified (15) Chronic renal failure, stage 3 (moderate): CODE(S): N18.30 - Chronic kidney disease, stage 3 unspecified (16) Diverticulosis: CODE(S): K57.90 - Diverticulosis of intestine, part unspecified, without perforation or abscess without bleeding (17) Rheumatoid arthritis: CODE(S): M06.9 - Rheumatoid arthritis, unspecified (18) History of endometrial cancer: CODE(S): Z85.42 - Personal history of malignant neoplasm of other parts of uterus (19) History of total abdominal hysterectomy and bilateral salpingo-oophorectomy: CODE(S): Z90.710 - Acquired absence of both cervix and uterus; Z90.722 - Acquired absence of ovaries, bilateral; Z90.79 - Acquired absence of other genital organ(s) (20) History of cardiac radiofrequency ablation: CODE(S): Z98.890 - Other specified postprocedural states (21) History of carpal tunnel release: CODE(S): Z98.890 - Other specified postprocedural states (22) History of tonsillectomy: CODE(S): Z90.89 - Acquired absence of other organs (23) Right leg swelling: CODE(S): M79.89 - Other specified soft tissue disorders PLAN: Plan This is a 63-year-old female with multiple pre-existing medical problems, who presented with a 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 She underwent right below-knee amputation on October 19, 2023 at [facility]. Shortly following the removal of her surgical luisana, several weeks following surgery, she developed a surgical wound dehiscence. She has been referred to the [facility] for definitive management. The patient has been advised to elevate her right lower extremity to heart level is much as possible. She admits to sleeping on a flat mattress at night. Elevation will help to minimize swelling. She has been encouraged to continue using a compression wrap and stump supervisor tree trimming at the site, and to collaborate with her prosthetists at [facility] to maintain compression to the site. These measures are to diminish the swelling and edema. Optimizing nutritional intake and glycemic control has also been discussed. We are to implement the use of Nicole topically to the dehiscent surgical wound. Patient and her have been instructed in the appropriate means of application. Nicole is to be applied on a daily basis. The patient is to follow-up in 1 week for reassessment. She is to follow-up with other providers relative to her recent diagnosis of invasive ductal carcinoma of the right breast. Total time: 50 minutes
[2023-12-15 09:06] VITALS: BP 139/76; PULSE 81; RESP 18; TEMP 36.3; BMI 54.1
--- NOTE | 2023-12-15 13:25 | PCM.WC.HP ---
History of Present Illness Date of Service: 12/15/23 Chief Complaint: Surgical wound dehiscence of the right below-knee amputation stump incision History of Wound: This is a 63-year-old morbidly obese female with multiple pre-existing medical conditions. She is a longstanding diabetic and has been poorly controlled. She suffers from diabetic peripheral neuropathy. She developed a right Charcot foot deformity, with collapse of her right arch. Her condition resulted in a right below-knee amputation which was performed at [facility] by Dr. Narayan on October 19, 2023. The patient had a relatively uncomplicated postoperative course. She was transferred to the [facility] rehabilitation unit, where she continued to convalesce for several weeks. Several weeks postoperatively, Dr. Damon's staff removed the patient's surgical luisana, and the patient subsequently developed a dehiscence. She was referred to the [facility] for management of her right below-knee amputation stump incisional dehiscence. The patient had been using Neosporin and gauze topically. She had also been using a Coban wrap and has been fitted with a stump building superintendent by [employer]. The patient's multiple pre-existing medical conditions are listed elsewhere. Of note, she underwent right breast needle biopsy on November 26, 2023, which was indicative of invasive ductal carcinoma. She is under the care of other providers for management of this recent diagnosis, including her surgeon, Dr. Knapp. Laboratory results have been obtained dated December 03, 2023, with results as follows: Sodium 139, potassium 4.0, chloride 106, BUN 21, creatinine 1.21, glucose 120, calcium 9.1, total bilirubin 0.60, AST 23, ALT 29, alkaline phosphatase 103, total protein 7.1, albumin 3.7. [facility] Medical History Surgical wound dehiscence Right leg swelling Diabetic neuropathy BRITT (obstructive sleep apnea) History of endometrial cancer Rheumatoid arthritis Diverticulosis Chronic renal failure, stage 3 (moderate) Pulmonary hypertension GERD (gastroesophageal reflux disease) Hyperlipidemia History of kidney stones Breast cancer in female Morbid obesity with BMI of 50.0-59.9, adult Hydronephrosis Ureteral calculus Charcot ankle Morbid obesity with BMI of 50.0-59.9, adult Diverticulosis Diabetes mellitus, type 2 Chronic renal failure (CRF), stage 3a Anemia Rheumatoid arthritis Chronic pain CPAP (continuous positive airway pressure) dependence Pulmonary hypertension Thyromegaly Hx of supraventricular tachycardia Nephrolithiasis Rosacea Fatty liver External hemorrhoid GERD without esophagitis Benign essential HTN Bilateral carpal tunnel syndrome Hyperlipidemia Low vitamin B12 level Multinodular goiter Tubular adenoma Adenocarcinoma of endometrium Home Medications ?Medication ?Instructions ?Recorded ?Last Taken ?Type aspirin 81 mg tablet,delayed 81 mg PO DAILY Heart health 01/11/16 07/03/17 History release cetirizine 10 mg capsule 10 mg PO DAILY Allergies 01/11/16 Unknown History metoprolol succinate 100 mg 100 mg PO DAILY BP 01/11/16 07/03/17 History tablet,extended release 24 hr multivitamin 1 ea PO DAILY Supplement 01/11/16 Unknown History omeprazole 40 mg capsule,delayed 40 mg PO DAILY GERD 01/11/16 07/03/17 History release simvastatin 20 mg tablet 20 mg PO QHS Cholestrol 01/11/16 Unknown History cyanocobalamin (vitamin B-12) 1,000 mcg PO DAILY Supplement 07/02/17 Unknown History 1,000 mcg sublingual tablet etanercept 50 mg/mL (1 mL) 50 mg subcut QWEEK Ask dr 04/28/18 Unknown History subcutaneous syringe (Enbrel) hydroxychloroquine 200 mg tablet 200 mg PO BID Platelets 04/28/18 Unknown History (Plaquenil) pregabalin 150 mg capsule (Lyrica) 150 mg PO QHS Nerve pain 06/14/18 Unknown History ferrous sulfate 325 mg (65 mg 325 mg PO DAILY supplement 04/25/20 Unknown History iron) tablet (Feosol) allopurinol 100 mg tablet 100 mg PO DAILY #30 tabs 11/18/23 Unknown Rx ascorbic acid (vitamin C) 500 mg 1,000 mg (2 x 500 mg) PO DAILY #30 11/18/23 Unknown Rx tablet tabs calcium carbonate (Oyster Shell 500 mg PO BREAKFAST #30 tabs 11/18/23 Unknown Rx Calcium 500) insulin lispro 100 unit/mL 3 unit (0.03 mL) subcut TID PRN 11/18/23 Unknown Rx subcutaneous pen elevated BS #15 mL insulin regular hum U-500 conc 500 See Rx Instructions .Route 11/18/23 Unknown Rx unit/mL(3 mL) subcut pen .COMPLEX Blood sugar 30 days #5 pens oxycodone 5 mg capsule 5 mg PO Q6H PRN pain 7 days #28 11/18/23 Unknown Rx caps psyllium husk (aspartame) 3 gram 2 packet PO DAILY #120 ea 11/18/23 Unknown Rx oral powder packet (Daily Fiber (psyllium-aspartame)) pregabalin 100 mg capsule (Lyrica) 100 mg PO BID #60 caps 11/19/23 Unknown Rx blood sugar diagnostic (OneTouch #100 ea 12/03/23 Unknown Rx Ultra Test strips) blood-glucose sensor (Dexcom G6 #9 ea 12/03/23 Unknown Rx Sensor device) blood-glucose transmitter (Dexcom #1 ea 12/03/23 Unknown Rx G6 Transmitter device) bupropion HCl 300 mg 24 hr tablet, 300 mg PO DAILY #90 tabs 12/03/23 Unknown Rx extended release levothyroxine 300 mcg tablet 300 mcg PO DAILY #30 tabs 12/03/23 Unknown Rx losartan 50 mg tablet (Cozaar) 50 mg PO DAILY #90 tabs 12/03/23 Unknown Rx OneTouch Delica Plus Lancet 33 #100 ea 12/04/23 Unknown Rx gauge (lancets) blood sugar diagnostic (OneTouch #100 ea 12/04/23 Unknown Rx Ultra Test strips) alprazolam 0.5 mg tablet (Xanax) 0.5 mg PO TID PRN panic attack 7 12/11/23 Unknown Rx days #10 tabs buspirone 5 mg tablet 5 mg PO TID #90 tabs 12/11/23 Unknown Rx Allergy/AdvReac Type Severity Reaction Status Date / Time No Known Allergies Allergy Verified 12/10/23 14:56 Family History Mother Ovarian cancer Hypertension Arthritis Uterine cancer Fibrocystic disease of breast Hypothyroid Father , Age 86-CHF Hypertension Arthritis Diverticulitis of colon Depression CAD (coronary artery disease) Sister Hypertension Depression CVA (cerebral vascular accident) Fibrocystic disease of breast Diabetes Bleeding disorder Portal hypertension Surgical History History of tonsillectomy History of carpal tunnel release History of cardiac radiofrequency ablation History of total abdominal hysterectomy and bilateral salpingo-oophorectomy History of below-knee amputation S/P cystoscopy with ureteral stent placement History of right below knee amputation History of hand surgery H/O cardiac radiofrequency ablation (02/15/13) History of right and left heart catheterization (07/03/17) H/O colonoscopy H/O abdominal hysterectomy H/O carpal tunnel repair Previous section History of tonsillectomy Hx of cholecystectomy Surgical menopause Social History Smoking Status: Never smoker second hand exposure: No alcohol intake: never substance use type: does not use caffeine: No Vital Signs Vital Signs Vital Signs: 12/15/23 09:06 Temperature 97.4 F L Temperature Source Temporal Pulse Rate 81 Respiratory Rate 18 Blood Pressure 139/76 H Blood Pressure Mean 97 Blood Pressure Source Monitor Blood Pressure Position Sitting Blood Pressure Location Left Arm Oxygen Delivery Method Room Air Weight Weight: 335 lb Body Mass Index (BMI) 54.1 Physical Exam Narrative ECOG 2, seen in a wheelchair Const alert, oriented x3 and no apparent distress Constitutional Narrative: The patient is morbidly obese. General Appearance: cooperative and comfortable Nutritional Appearance: morbidly obese HEENT normocephalic and head/scalp atraumatic Face and Sinus: normal facial exam External Ear: external ears normal Mouth: oral and palatal mucosa normal Eyes General Eye: normal appearance of both eyes Neck full ROM Resp normal respiratory effort, normal air movement, no retractions and no use of accessory muscles Effort and Inspection: able to speak in complete sentences Cardio Jugular Venous Distention: Negative for JVD GI soft to palpation and non-tender Extremity Extremity Narrative: Right lower extremity below-knee amputation, wound dressed left uninterrupted. Skin Wound Narrative: The dehiscence of the right below-knee amputation stump persists. There are 2 areas of concern. The dimensions of each are documented elsewhere. There is 1 large area, and 1 area which is much smaller. There is a moderate amount of bioburden and nonviable tissue present. There is no sign of infection or cellulitis. Neuro oriented x3, CN's II-XII intact bilaterally, moves all extremities and no focal motor deficits Sensorium / Orientation: awake, alert, oriented to person, oriented to place and oriented to time Coordination / Balance: [id number] test normal Speech: speech normal Gait (Neuro): unable to assess gait Psych mental status grossly normal Debridement Note Debridement Note Wound debrided: Right below-knee amputation stump incision Laterality: Right Type of Debridement: Excisional debridement Anesthesia Used: 5% Lidocaine Gel Depth: Down to and including healthy tissue and in the subcutaneous layer Percentage of wound debrided: 100 Instrument Used: 5mm curette Severity: Fat Layer Exposed Amount of bleeding with debridement: Mild Bleeding Controlled with: Compression and gauze Patient tolerated procedure: Patient tolerated procedure well Post-Debridement Measurements and Additional Note: Post-Debridement Measurements/Treatment - Nurse 1 - General Ulcer Assessment Start: 12/08/23 13:58 Freq: Status: Active Protocol: LOWEXFlavia Activity Type Activity Date Activity User E-sign Co-sign Detail Recorded Client Recorded Date Recorded By Document 12/08/23 14:01 [id number] [id number] 12/08/23 14:25 KW Document 12/15/23 09:06 KW wound center 12/15/23 09:12 KW 12/08/23 12/15/23 14:01 09:06 - Today's Visit Information Type of service Initial Visit Follow-up Visit (Physician/EMPLOYEE WELFARE MANAGER ) Arrival Mode Wheelchair Walker Accompanied by Patient Identification Verified (Name & Yes Yes ) Height and Weight Height 5 ft 6 in Weight 335 lb Weight in Pounds 335.0 lbs Body Mass Index (BMI) 54.1 54.1 BMI Classification Obese Obese BSA - Yanely 2.49 Vital Signs Temperature (97.8 F-99.1 F) 97.5 F L 97.4 F L Temperature Source Temporal Temporal Pulse Rate (60-100) 78 81 Pulse Location Monitor Monitor Respiratory Rate (12-18) 18 18 Respiratory rate source Observation Observation Oxygen Delivery Method Room Air Room Air Blood Pressure (90/60-120/80) 139/48 H 139/76 H Blood Pressure Mean 78 97 Source Monitor Monitor Position Semi-Fowlers Sitting Blood Pressure Location Left Arm Left Arm History Since Last Visit- (Skip if this is Patient's initial visit) Have you changed medications since your No last visit? Any new allergies or adverse reactions No Had a fall/change in ADL's that may No increase risk of falls Signs or symptoms of abuse and/or No neglect since last visit Have you been in the hospital since your No last visit? Has dressing in place as prescribed Yes Has compression in place as prescribed N/A Has offloadiing in place as prescribed N/A Experienced any changes in pain level or No management Left Footwear Regular Shoe Right Footwear No Footwear Pain Scale: 0-10 Numeric Is Patient Pain Free? Yes Yes Communication Assessment Preferred language Albanian Scoop Machine Operator Required No Able to Read Yes Able to Write Yes Communication Tools None Caregiver Communication Skills No Impairment Impairment Right Hearing Abillity Normal Left Hearing Abillity Normal Visual Assistive Devices Glasses Teaching Assessment Preferences Verbal,Written, Demonstration Barriers to Learning None Readiness To Learn Excellent Willingness to Engage in Self Management High Activies Readiness to Engage in Self Management High Activities Anxiety Level Calm Cooperation Cooperative Perception Coherent Interest in Health Problem Asks Questions Education Importance Acknowledges Need Does Patient Smoke tobacco or other Yes substances Smoking Status Never smoker Is Patient Diabetic Yes Functional Assessment Recent Decline in Ability to Perform Ambulation, Transferring Culture/Alevism/Turning Sander Tender Cultural/Alevism Needs that may affect No Treatment Plan Would you allow our [facility] electronic assembly to No meet you for the purpose of spiritual/ emotional support? Turning Sander Tender to contact place of methodist No WC - Nurse 1 - General Ulcer Measurement Start: 12/08/23 13:58 Freq: Status: Active Protocol: Activity Type Activity Date Activity User E-sign Co-sign Detail Recorded Client Recorded Date Recorded By Document 12/08/23 14:01 KW [id number] 12/08/23 14:25 KW Document 12/15/23 09:06 wound center 12/15/23 09:12 12/08/23 12/15/23 14:01 09:06 Wound Center Nurse 1 #2inferior medial stump -Current Size (cm) - Length 2.2 -Current Size (cm) - Width 2.8 -Current Size (cm) - Depth 0.2 -Total Square Cm 6.16 -Exudate Amt Small -Exudate Type Serosanguineous -Wound Margin Distinct, Outline Attached -Granulation Amt Small (1-33%) -Granulation Quality [place] -Necrosis Amt Large (67-100%) -Necrotic Tissue Type Adherent Slough -Texture (Fadumo-wound Skin Appearance) Assessed -Moisture (Fadumo-wound Skin Appearance) Assessed -Color (Fadumo-wound Skin Appearance) Assessed -Temperature (Fadumo-wound Skin No Abnormality Appearance) (Pt Warm) -Tenderness on Palpation (Fadumo-wound No Skin Appearance) -Ulcer Cleansing Rinsed/ Irrigated with Saline -Foul Odor after Cleansing No -Anesthetic Used 5% Lidocaine Gel #1 RT superior stump -Current Size (cm) - Length 5.5 0.1 -Current Size (cm) - Width 3 0.1 -Current Size (cm) - Depth 0.3 0.1 -Total Square Cm 16.5 0.01 -Date of Last Picture (Recall this 12/08/23 field) -Exudate Amt Small -Exudate Type Serosanguineous -Wound Margin Distinct, Outline Attached -Granulation Amt Small (1-33%) -Granulation Quality Red -Necrosis Amt Large (67-100%) -Necrotic Tissue Type Adherent Slough -Texture (Fadumo-wound Skin Appearance) Assessed Assessed -Moisture (Fadumo-wound Skin Appearance) Assessed Assessed -Color (Fadumo-wound Skin Appearance) Assessed, Assessed Erythema -Temperature (Fadumo-wound Skin No Abnormality Appearance) (Pt Warm) -Tenderness on Palpation (Fadumo-wound No Skin Appearance) -Ulcer Cleansing Rinsed/ Irrigated with Saline -Foul Odor after Cleansing No -Anesthetic Used 5% Lidocaine Gel WC - Nurse 2 - General Ulcer CM Notes Start: 12/08/23 13:58 Freq: Status: Active Protocol: Activity Type Activity Date Activity User E-sign Co-sign Detail Recorded Client Recorded Date Recorded By Document 12/08/23 14:49 DS [id number] 12/08/23 14:57 DS Document 12/15/23 09:19 [id number] 12/15/23 09:25 DS Edit Result 12/15/23 09:19 DS (1) [id number] 12/15/23 09:33 DS (1) #2inferior medial stump - Post Debridement (cm) - Length => 0.7 - Post Debridement (cm) - Width => 0.7 - Post Debridement (cm) - Depth => 0.1 - Total Square (Post) (cm) => 0.49 - Area of Debridement (cm) - Length => 0.7 - Area of Debridement (cm) - Width => 0.7 - Total Square (Area) (cm) => 0.49 12/08/23 12/15/23 14:49 09:19 Wound Center Nurse 2 #2inferior medial stump -Time 14:56 09:19 -Correct Patient Yes Yes -Correct Side, Site, Position Yes Yes -Correct Procedure Yes Yes -Procedure Performed Yes Yes -Type of Procedure Debridement Debridement -Clinical Debridement Subcutaneous Subcutaneous -Tissue Removed Subcutaneous Subcutaneous -Post Debridement (cm) - Length 0.5 0.7 -Post Debridement (cm) - Width 0.6 0.7 -Post Debridement (cm) - Depth 0.3 0.1 -Total Square (Post) (cm) 0.30 0.49 -Area of Debridement (cm) - Length 0.5 0.7 -Area of Debridement (cm) - Width 0.6 0.7 -Total Square (Area) (cm) 0.30 0.49 -Tunneling No No -Undermining/Tunneling No No -Circular Undermining No No -Wound/Ulcer Outcome Not Healed Not Healed -Ulcer Cleansing Rinsed/ Irrigated with Saline -Bleeding Controlled with Pressure Pressure -Treatment Response Procedure Procedure Tolerated Well Tolerated Well -Debridement - Subq, 1st 20sq cm Yes No #1 RT superior stump -Time 14:49 09:19 -Correct Patient Yes Yes -Correct Side, Site, Position Yes Yes -Correct Procedure Yes Yes -Procedure Performed Yes Yes -Type of Procedure Debridement Debridement -Clinical Debridement Subcutaneous Subcutaneous -Tissue Removed Subcutaneous Subcutaneous -Post Debridement (cm) - Length 2.0 2.6 -Post Debridement (cm) - Width 2.7 3.5 -Post Debridement (cm) - Depth 0.4 0.4 -Total Square (Post) (cm) 5.40 9.10 -Area of Debridement (cm) - Length 2.0 2.6 -Area of Debridement (cm) - Width 2.7 3.5 -Total Square (Area) (cm) 5.40 9.10 -Tunneling No No -Undermining/Tunneling No No -Circular Undermining No No -Wound/Ulcer Outcome Not Healed Not Healed -Ulcer Cleansing Rinsed/ Rinsed/ Irrigated with Irrigated with Saline Saline -Bleeding Controlled with Pressure Pressure -Treatment Response Procedure Procedure Tolerated Well Tolerated Well -Assistive Device(s) Walker -Debridement - Subq, 1st 20sq cm No Yes Pain Scale: 0-10 Numeric Is Patient Pain Free? Yes Yes WC - Nurse 3 - General Ulcer D/C NN Start: 12/08/23 13:58 Freq: Status: Active Protocol: Activity Type Activity Date Activity User E-sign Co-sign Detail Recorded Client Recorded Date Recorded By Document 12/08/23 15:27 [place] [id number] 12/08/23 15:27 RB Document 12/15/23 09:37 [id number] [id number] 12/15/23 09:38 JF 12/08/23 12/15/23 15:27 09:37 Wound Care Center Nurse 3 #2inferior medial stump -Ulcer Cleansing Rinsed/ Rinsed/ Irrigated with Irrigated with Saline Saline -Foul Odor after Cleansing No -Primary Dressing Applied Promogran Promogran Nicole Matter Nicole Matter -Primary Dressing Covered/Secured with Dry Gauze,Dry Dry Gauze & Gauze & Roll Roll Gauze, Gauze,Secured Secured with with Tape Tape -Promogran Nicole Matter 1 1 #1 RT superior stump -Ulcer Cleansing Rinsed/ Rinsed/ Irrigated with Irrigated with Saline Saline -Foul Odor after Cleansing No -Primary Dressing Applied Promogran Nicole Matter -Other Dressing nicole -Primary Dressing Covered/Secured with Dry Gauze,Dry Dry Gauze, Gauze & Roll Secured with Gauze,Secured Tape with Tape -Promogran Nicole Matter 0 Treatment Response Procedure Tolerated Well Pain Scale: 0-10 Numeric Is Patient Pain Free? Yes Yes WC - Visit Discharge Discharge Condition Stable Stable Ambulatory Status Wheelchair Ambulatory, Walker Transportation Private Auto Private Auto Medication Reconcilliation completed & No Yes provided to patient/care provider Clinical Summary of Care Provided Yes Yes Assessment/Plan Assessment/Plan (1) Surgical wound dehiscence: CODE(S): T81.31XA - Disruption of external operation (surgical) wound, not elsewhere classified, initial encounter QUALIFIERS: Encounter type: initial encounter Qualified Code(s): T81.31XA - Disruption of external operation (surgical) wound, not elsewhere classified, initial encounter (2) History of right below knee amputation: CODE(S): Z89.511 - Acquired absence of right leg below knee (3) Morbid obesity with BMI of 50.0-59.9, adult: CODE(S): E66.01 - Morbid (severe) obesity due to excess calories; Z68.43 - Body mass index [BMI] 50.0-59.9, adult (4) Diabetes mellitus, type 2: CODE(S): E11.9 - Type 2 diabetes mellitus without complications QUALIFIERS: Diabetes mellitus retirement insulin use: with retirement use Diabetes mellitus complication status: with kidney complications Diabetes mellitus complication detail: with chronic kidney disease Chronic kidney disease stage: stage 3 (moderate) Chronic kidney disease stage 3 subtype: stage 3a (GFR 45-59) Qualified Code(s): E11.22 - Type 2 diabetes mellitus with diabetic chronic kidney disease; N18.31 - Chronic kidney disease, stage 3a; Z79.4 - intermediate (current) use of insulin (5) Below knee amputation: CODE(S): S88.119A - 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, unspecified lower leg, initial encounter QUALIFIERS: Encounter type: sequela Laterality: bilateral Qualified Code(s): S88.111S - 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, right lower leg, sequela; S88.112S - 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, left lower leg, sequela (6) Hypothyroid: CODE(S): E03.9 - Hypothyroidism, unspecified QUALIFIERS: Hypothyroidism type: acquired Qualified Code(s): E03.9 - Hypothyroidism, unspecified (7) Benign essential HTN: CODE(S): I10 - Essential (primary) hypertension (8) Breast cancer in female: CODE(S): C50.919 - Malignant neoplasm of unspecified site of unspecified female breast QUALIFIERS: Breast location: unspecified site of breast Estrogen receptor status: positive Laterality: right Qualified Code(s): C50.911 - Malignant neoplasm of unspecified site of right female breast; Z17.0 - Estrogen receptor positive status [ER+] (9) History of kidney stones: CODE(S): Z87.442 - Personal history of urinary calculi (10) Physical debility: CODE(S): R53.81 - Other malaise (11) Hx of supraventricular tachycardia: CODE(S): Z86.79 - Personal history of other diseases of the circulatory system (12) Hyperlipidemia: CODE(S): E78.5 - Hyperlipidemia, unspecified (13) GERD (gastroesophageal reflux disease): CODE(S): K21.9 - Gastro-esophageal reflux disease without esophagitis (14) Pulmonary hypertension: CODE(S): I27.20 - Pulmonary hypertension, unspecified (15) Chronic renal failure, stage 3 (moderate): CODE(S): N18.30 - Chronic kidney disease, stage 3 unspecified (16) Diverticulosis: CODE(S): K57.90 - Diverticulosis of intestine, part unspecified, without perforation or abscess without bleeding (17) Rheumatoid arthritis: CODE(S): M06.9 - Rheumatoid arthritis, unspecified (18) History of endometrial cancer: CODE(S): Z85.42 - Personal history of malignant neoplasm of other parts of uterus (19) History of total abdominal hysterectomy and bilateral salpingo-oophorectomy: CODE(S): Z90.710 - Acquired absence of both cervix and uterus; Z90.722 - Acquired absence of ovaries, bilateral; Z90.79 - Acquired absence of other genital organ(s) (20) History of cardiac radiofrequency ablation: CODE(S): Z98.890 - Other specified postprocedural states (21) History of carpal tunnel release: CODE(S): Z98.890 - Other specified postprocedural states (22) History of tonsillectomy: CODE(S): Z90.89 - Acquired absence of other organs (23) Right leg swelling: CODE(S): M79.89 - Other specified soft tissue disorders PLAN: Plan This is a 63-year-old female with multiple pre-existing medical problems, who presented with a 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 She underwent right below-knee amputation on October 19, 2023 at [facility]. Shortly following the removal of her surgical luisana, several weeks following surgery, she developed a surgical wound dehiscence. She has been referred to the [facility] for definitive management. The patient has been advised to elevate her right lower extremity to heart level is much as possible. She admits to sleeping on a flat mattress at night. Elevation will help to minimize swelling. She has been encouraged to continue using a compression wrap and stump building superintendent at the site, and to collaborate with her prosthetists at [facility] to maintain compression to the site. These measures are to diminish the swelling and edema. Optimizing nutritional intake and glycemic control has also been discussed. We are to continue the use of Nicole topically to the dehiscent surgical wound. The patient and her have been instructed in the appropriate means of application. Nicole is to be applied on a daily basis. The patient is to follow-up in 1 week for reassessment. We may consider the use of a skin substitute or wound VAC in the future. The patient is to follow-up with other providers relative to her recent diagnosis of invasive ductal carcinoma of the right breast. She is collaborating with Dr. Knapp in deciding her preferred method of treatment for her breast cancer. Total time: 25 minutes
[2023-12-22 14:09] VITALS: BP 106/40; PULSE 74; RESP 18; TEMP 35.9; BMI 54.1
--- NOTE | 2023-12-22 17:50 | HP.PCM_ITS ---
History of Present Illness Date of Service: 12/22/23 Chief Complaint: Surgical wound dehiscence of the right below-knee amputation stump incision History of Wound: This is a 63-year-old morbidly obese female with multiple pre- existing medical conditions. She is a longstanding diabetic and has been poorly controlled. She suffers from diabetic peripheral neuropathy. She developed a right Charcot foot deformity, with collapse of her right arch. Her condition resulted in a right below-knee amputation which was performed at [facility] by Dr. Narayan on October 19, 2023. The patient had a relatively uncomplicated postoperative course. She was transferred to the [facility] rehabilitation unit, where she continued to convalesce for several weeks. Several weeks postoperatively, Dr. Damon's staff removed the patient's surgical luisana, and the patient subsequently developed a dehiscence. She was referred to the [facility] for management of her right below-knee amputation stump incisional dehiscence. The patient had been using Neosporin and gauze topically. She had also been using a Coban wrap and has been fitted with a stump sap fico business analyst by [employer]. The patient's multiple pre-existing medical conditions are listed elsewhere. Of note, she underwent right breast needle biopsy on November 26, 2023, which was indicative of invasive ductal carcinoma. She is under the care of other providers for management of this recent diagnosis, including her surgeon, Dr. Knapp. Laboratory results have been obtained dated December 03, 2023, with results as follows: Sodium 139, potassium 4.0, chloride 106, BUN 21, creatinine 1.21, gl ucose 120, calcium 9.1, total bilirubin 0.60, AST 23, ALT 29, alkaline phosphatase 103, total protein 7.1, albumin 3.7. FORMERLY [facility] Medical History Surgical wound dehiscence Right leg swelling Diabetic neuropathy BRITT (obstructive sleep apnea) History of endometrial cancer Rheumatoid arthritis Diverticulosis Chronic renal failure, stage 3 (moderate) Pulmonary hypertension GERD (gastroesophageal reflux disease) Hyperlipidemia History of kidney stones Breast cancer in female Morbid obesity with BMI of 50.0-59.9, adult Hydronephrosis Ureteral calculus Charcot ankle Morbid obesity with BMI of 50.0-59.9, adult Diverticulosis Diabetes mellitus, type 2 Chronic renal failure (CRF), stage 3a Anemia Rheumatoid arthritis Chronic pain CPAP (continuous positive airway pressure) dependence Pulmonary hypertension Thyromegaly Hx of supraventricular tachycardia Nephrolithiasis Rosacea Fatty liver External hemorrhoid GERD without esophagitis Benign essential HTN Bilateral carpal tunnel syndrome Hyperlipidemia Low vitamin B12 level Multinodular goiter Tubular adenoma Adenocarcinoma of endometrium Home Medications ?Medication ?Instructions ?Recorded ?Last Taken ?Type aspirin 81 mg tablet,delayed 81 mg PO DAILY Heart health 01/11/16 07/03/17 History release cetirizine 10 mg capsule 10 mg PO DAILY Allergies 01/11/16 Unknown History metoprolol succinate 100 mg 100 mg PO DAILY BP 01/11/16 07/03/17 History tablet,extended release 24 hr multivitamin 1 ea PO DAILY Supplement 01/11/16 Unknown History omeprazole 40 mg capsule,delayed 40 mg PO DAILY GERD 01/11/16 07/03/17 History release simvastatin 20 mg tablet 20 mg PO QHS Cholestrol 01/11/16 Unknown History cyanocobalamin (vitamin B-12) 1,000 mcg PO DAILY Supplement 07/02/17 Unknown History 1,000 mcg sublingual tablet hydroxychloroquine 200 mg tablet 200 mg PO BID Platelets 04/28/18 Unknown History (Plaquenil) pregabalin 150 mg capsule (Lyrica) 150 mg PO QHS Nerve pain 06/14/18 Unknown History ferrous sulfate 325 mg (65 mg 325 mg PO DAILY supplement 04/25/20 Unknown History iron) tablet (Feosol) allopurinol 100 mg tablet 100 mg PO DAILY #30 tabs 11/18/23 Unknown Rx ascorbic acid (vitamin C) 500 mg 1,000 mg (2 x 500 mg) PO DAILY #30 11/18/23 Unknown Rx tablet tabs calcium carbonate (Oyster Shell 500 mg PO BREAKFAST #30 tabs 11/18/23 Unknown Rx Calcium 500) insulin lispro 100 unit/mL 3 unit (0.03 mL) subcut TID PRN 11/18/23 Unknown Rx subcutaneous pen elevated BS #15 mL insulin regular hum U-500 conc 500 See Rx Instructions .Route 11/18/23 Unknown Rx unit/mL(3 mL) subcut pen .COMPLEX Blood sugar 30 days #5 pens oxycodone 5 mg capsule 5 mg PO Q6H PRN pain 7 days #28 11/18/23 Unknown Rx caps psyllium husk (aspartame) 3 gram 2 packet PO DAILY #120 ea 11/18/23 Unknown Rx oral powder packet (Daily Fiber (psyllium-aspartame)) pregabalin 100 mg capsule (Lyrica) 100 mg PO BID #60 caps 11/19/23 Unknown Rx blood sugar diagnostic (OneTouch #100 ea 12/03/23 Unknown Rx Ultra Test strips) blood-glucose sensor (Dexcom G6 #9 ea 12/03/23 Unknown Rx Sensor device) blood-glucose transmitter (Dexcom #1 ea 12/03/23 Unknown Rx G6 Transmitter device) bupropion HCl 300 mg 24 hr tablet, 300 mg PO DAILY #90 tabs 12/03/23 Unknown Rx extended release levothyroxine 300 mcg tablet 300 mcg PO DAILY #30 tabs 12/03/23 Unknown Rx losartan 50 mg tablet (Cozaar) 50 mg PO DAILY #90 tabs 12/03/23 Unknown Rx OneTouch Delica Plus Lancet 33 #100 ea 12/04/23 Unknown Rx gauge (lancets) blood sugar diagnostic (OneTouch #100 ea 12/04/23 Unknown Rx Ultra Test strips) alprazolam 0.5 mg tablet (Xanax) 0.5 mg PO TID PRN panic attack 7 12/11/23 Unknown Rx days #10 tabs buspirone 5 mg tablet 5 mg PO TID #90 tabs 12/11/23 Unknown Rx buspirone 5 mg tablet 5 mg PO TID 12/22/23 Unknown History Allergy/AdvReac Type Severity Reaction Status Date / Time No Known Allergies Allergy Verified 12/22/23 15:08 Family History Mother Ovarian cancer Hypertension Arthritis Uterine cancer Fibrocystic disease of breast Hypothyroid Father , Age 86-CHF Hypertension Arthritis Diverticulitis of colon Depression CAD (coronary artery disease) Sister Hypertension Depression CVA (cerebral vascular accident) Fibrocystic disease of breast Diabetes Bleeding disorder Portal hypertension Surgical History History of tonsillectomy History of carpal tunnel release History of cardiac radiofrequency ablation History of total abdominal hysterectomy and bilateral salpingo-oophorectomy History of below-knee amputation S/P cystoscopy with ureteral stent placement History of right below knee amputation History of hand surgery H/O cardiac radiofrequency ablation (02/15/13) History of right and left heart catheterization (07/03/17) H/O colonoscopy H/O abdominal hysterectomy H/O carpal tunnel repair Previous section History of tonsillectomy Hx of cholecystectomy Surgical menopause Social History Smoking Status: Never smoker second hand exposure: No alcohol intake: never substance use type: does not use caffeine: No Vital Signs Vital Signs Vital Signs: 12/22/23 14:09 Temperature 96.7 F L Temperature Source Temporal Pulse Rate 74 Respiratory Rate 18 Blood Pressure 106/40 L Blood Pressure Mean 62 Blood Pressure Source Monitor Blood Pressure Position Semi-Fowlers Blood Pressure Location Left Arm Weight Weight: 335 lb Body Mass Index (BMI) 54.1 Physical Exam Narrative ECOG 2, seen in a wheelchair Const alert, oriented x3 and no apparent distress Constitutional Narrative: The patient is morbidly obese. General Appearance: cooperative and comfortable Nutritional Appearance: morbidly obese HEENT normocephalic and head/scalp atraumatic Face and Sinus: normal facial exam External Ear: external ears normal Mouth: oral and palatal mucosa normal Eyes General Eye: normal appearance of both eyes Neck full ROM Resp normal respiratory effort, normal air movement, no retractions and no use of accessory muscles Effort and Inspection: able to speak in complete sentences Cardio Jugular Venous Distention: Negative for JVD GI soft to palpation and non-tender Extremity Extremity Narrative: Right lower extremity below-knee amputation, wound dressed left uninterrupted. Skin Wound Narrative: The dehiscence of the right below-knee amputation stump persists. There are 2 areas of involvement. The larger of the 2 sites is generally pink and healthy in appearance, with a moderate amount of bioburden and nonviable tissue. The second site, much smaller, demonstrates a small amount of bioburden. Dimensions of each site are documented elsewhere. There is no sign of infection or cellulitis. In general, the dehiscent wound is slightly smaller, with evidence of increasing areas of granulation. Neuro oriented x3, CN's II-XII intact bilaterally, moves all extremities and no focal motor deficits Sensorium / Orientation: awake, alert, oriented to person, oriented to place and oriented to time Coordination / Balance: [id number] test normal Speech: speech normal Gait (Neuro): unable to assess gait Psych mental status grossly normal Debridement Note Debridement Note Wound debrided: Right below-knee amputation stump incision Laterality: Right Type of Debridement: Excisional debridement Anesthesia Used: 5% Lidocaine Gel Depth: Down to and including healthy tissue and in the subcutaneous layer Percentage of wound debrided: 100 Instrument Used: 5mm curette, Forceps and - (Scissors) Tissue Removed: Bioburden and nonviable tissue Severity: Fat Layer Exposed Amount of bleeding with debridement: Mild Bleeding Controlled with: Compression and gauze Patient tolerated procedure: Patient tolerated procedure well Debridement Free Text: Several retained surgical sutures were noted within the dehiscent wound, and they were excised using forceps and scissors. Post-Debridement Measurements and Additional Note: Post-Debridement Measurements/Treatment - Nurse 1 - General Ulcer Assessment Start: 12/08/23 13:58 Freq: Status: Active Protocol: JIA.[email or web address] Activity Type Activity Date Activity User E-sign Co-sign Detail Recorded Client Recorded Date Recorded By Document 12/08/23 14:01 KW [id number] 12/08/23 14:25 KW Document 12/15/23 09:06 KW wound center 12/15/23 09:12 KW Document 12/22/23 14:09 RB wound cnter 12/22/23 14:12 RB 12/08/23 12/15/23 12/22/23 14:01 09:06 14:09 - Today's Visit Information Type of service Initial Visit Follow-up Visit Follow-up Visit (Physician/ANGLE SHEAR OPERATOR (Physician/ANGLE SHEAR OPERATOR ) ) Arrival Mode Wheelchair Walker Ambulatory Transfer Assistance None Accompanied by Patient Identification Verified (Name & Yes Yes Yes ) Patient Requires Transmission-Based No Precautions Height and Weight Height 5 ft 6 in Weight 335 lb Weight in Pounds 335.0 lbs Body Mass Index (BMI) 54.1 54.1 54.1 BMI Classification Obese Obese Obese BSA - Yanely 2.49 Vital Signs Temperature (97.8 F-99.1 F) 97.5 F L 97.4 F L 96.7 F L Temperature Source Temporal Temporal Temporal Pulse Rate (60-100) 78 81 74 Pulse Location Monitor Monitor Monitor Respiratory Rate (12-18) 18 18 18 Respiratory rate source Observation Observation Observation Oxygen Delivery Method Room Air Room Air Blood Pressure (90/60-120/80) 139/48 H 139/76 H 106/40 L Blood Pressure Mean 78 97 62 Source Monitor Monitor Monitor Position Semi-Fowlers Sitting Semi-Fowlers Blood Pressure Location Left Arm Left Arm Left Arm History Since Last Visit- (Skip if this is Patient's initial visit) Have you changed medications since your No No last visit? Any new allergies or adverse reactions No No Had a fall/change in ADL's that may No No increase risk of falls Signs or symptoms of abuse and/or No No neglect since last visit Have you been in the hospital since your No No last visit? Has dressing in place as prescribed Yes Yes Has compression in place as prescribed N/A Yes Has offloadiing in place as prescribed N/A No Experienced any changes in pain level or No No management Left Footwear Regular Shoe Right Footwear No Footwear Pain Scale: 0-10 Numeric Is Patient Pain Free? Yes Yes Yes Communication Assessment Preferred language [place] Licensing Specialist Required No Able to Read Yes Able to Write Yes Communication Tools None Caregiver Communication Skills No Impairment Impairment Right Hearing Abillity Normal Left Hearing Abillity Normal Visual Assistive Devices Glasses Teaching Assessment Preferences Verbal,Written, Demonstration Barriers to Learning None Readiness To Learn Excellent Willingness to Engage in Self Management High Activies Readiness to Engage in Self Management High Activities Anxiety Level Calm Cooperation Cooperative Perception Coherent Interest in Health Problem Asks Questions Education Importance Acknowledges Need Does Patient Smoke tobacco or other Yes substances Smoking Status Never smoker Is Patient Diabetic Yes Functional Assessment Recent Decline in Ability to Perform Ambulation, Transferring Culture/Congregation/Laminated Plastics Assembler And Gluer Cultural/Congregation Needs that may affect No Treatment Plan Would you allow our hospital teacher counselor to No meet you for the purpose of spiritual/ emotional support? Laminated Plastics Assembler And Gluer to contact place of jainism No WC - Nurse 1 - General Ulcer Measurement Start: 12/08/23 13:58 Freq: Status: Active Protocol: Activity Type Activity Date Activity User E-sign Co-sign Detail Recorded Client Recorded Date Recorded By Document 12/08/23 14:01 KW [id number] 12/08/23 14:25 KW Document 12/15/23 09:06 KW wound center 12/15/23 09:12 KW Document 12/22/23 14:09 RB wound cnter 12/22/23 14:12 RB 12/08/23 12/15/23 12/22/23 14:01 09:06 14:09 Wound Center Nurse 1 #2inferior medial stump -Combined with other wound No -Current Size (cm) - Length 2.2 0.1 -Current Size (cm) - Width 2.8 0.1 -Current Size (cm) - Depth 0.2 0.1 -Total Square Cm 6.16 0.01 -Tunneling No -Undermining/Tunneling No -Circular Undermining No -Exudate Amt Small Small -Exudate Type Serosanguineous Serosanguineous -Wound Margin Distinct, Distinct, Outline Outline Attached Attached -Granulation Amt Small (1-33%) Medium (34-66%) -Granulation Quality [place] -Slough/Fibrin Yes -Necrosis Amt Large (67-100%) Medium (34-66%) -Necrotic Tissue Type Adherent Slough Adherent Slough -Structure Exposed N/A -Texture (Fadumo-wound Skin Appearance) Assessed Assessed -Moisture (Fadumo-wound Skin Appearance) Assessed Assessed -Color (Fadumo-wound Skin Appearance) Assessed Assessed -Temperature (Fadumo-wound Skin No Abnormality No Abnormality Appearance) (Pt Warm) (Pt Warm) -Tenderness on Palpation (Fadumo-wound No Skin Appearance) -Ulcer Cleansing Rinsed/ Wound Cleanser Irrigated with Saline -Foul Odor after Cleansing No No -Anesthetic Used 5% Lidocaine 5% Lidocaine Gel Gel #1 RT superior stump -Combined with other wound No -Current Size (cm) - Length 5.5 0.1 2.5 -Current Size (cm) - Width 3 0.1 2.8 -Current Size (cm) - Depth 0.3 0.1 0.2 -Total Square Cm 16.5 0.01 7.00 -Date of Last Picture (Recall this 12/08/23 field) -Epithelialization Small 1-33% -Tunneling No -Undermining/Tunneling No -Circular Undermining No -Exudate Amt Small Medium -Exudate Type Serosanguineous Serosanguineous -Wound Margin Distinct, Distinct, Outline Outline Attached Attached -Granulation Amt Small (1-33%) Medium (34-66%) -Granulation Quality [place] -Slough/Fibrin Yes -Necrosis Amt Large (67-100%) Medium (34-66%) -Necrotic Tissue Type Adherent Slough Adherent Slough -Structure Exposed N/A -Texture (Fadumo-wound Skin Appearance) Assessed Assessed Assessed -Moisture (Fadumo-wound Skin Appearance) Assessed Assessed Assessed -Color (Fadumo-wound Skin Appearance) Assessed, Assessed No Abnormality Erythema -Temperature (Fadumo-wound Skin No Abnormality No Abnormality Appearance) (Pt Warm) (Pt Warm) -Tenderness on Palpation (Fadumo-wound No No Skin Appearance) -Ulcer Cleansing Rinsed/ Wound Cleanser Irrigated with Saline -Foul Odor after Cleansing No No -Anesthetic Used 5% Lidocaine 5% Lidocaine Gel Gel WC - Nurse 2 - General Ulcer CM Notes Start: 12/08/23 13:58 Freq: Status: Active Protocol: Activity Type Activity Date Activity User E-sign Co-sign Detail Recorded Client Recorded Date Recorded By Document 12/08/23 14:49 DS [id number] 12/08/23 14:57 DS Document 12/15/23 09:19 DS [id number] 12/15/23 09:25 DS Edit Result 12/15/23 09:19 DS (1) [id number] 12/15/23 09:33 DS Document 12/22/23 14:23 DS [id number] 12/22/23 14:29 DS Edit Result 12/22/23 14:23 DS (2) [id number] 12/22/23 15:52 DS (1) #2inferior medial stump - Post Debridement (cm) - Length => 0.7 - Post Debridement (cm) - Width => 0.7 - Post Debridement (cm) - Depth => 0.1 - Total Square (Post) (cm) => 0.49 - Area of Debridement (cm) - Length => 0.7 - Area of Debridement (cm) - Width => 0.7 - Total Square (Area) (cm) => 0.49 (2) #1 RT superior stump - Debridement - Subq, 1st 20sq cm No => Yes 12/08/23 12/15/23 12/22/23 14:49 09:19 14:23 Wound Center Nurse 2 #2inferior medial stump -Time 14:56 09:19 14:28 -Correct Patient Yes Yes Yes -Correct Side, Site, Position Yes Yes Yes -Correct Procedure Yes Yes Yes -Procedure Performed Yes Yes Yes -Type of Procedure Debridement Debridement Debridement -Clinical Debridement Subcutaneous Subcutaneous Subcutaneous -Tissue Removed Subcutaneous Subcutaneous Subcutaneous -Post Debridement (cm) - Length 0.5 0.7 0.5 -Post Debridement (cm) - Width 0.6 0.7 0.5 -Post Debridement (cm) - Depth 0.3 0.1 0.1 -Total Square (Post) (cm) 0.30 0.49 0.25 -Area of Debridement (cm) - Length 0.5 0.7 0.5 -Area of Debridement (cm) - Width 0.6 0.7 0.5 -Total Square (Area) (cm) 0.30 0.49 0.25 -Tunneling No No No -Undermining/Tunneling No No No -Circular Undermining No No No -Wound/Ulcer Outcome Not Healed Not Healed Not Healed -Ulcer Cleansing Rinsed/ Rinsed/ Irrigated with Irrigated with Saline Saline -Bleeding Controlled with Pressure Pressure Pressure -Treatment Response Procedure Procedure Procedure Tolerated Well Tolerated Well Tolerated Well -Debridement - Subq, 1st 20sq cm Yes No No #1 RT superior stump -Time 14:49 09:19 14:23 -Correct Patient Yes Yes Yes -Correct Side, Site, Position Yes Yes Yes -Correct Procedure Yes Yes Yes -Procedure Performed Yes Yes Yes -Type of Procedure Debridement Debridement Debridement -Clinical Debridement Subcutaneous Subcutaneous Subcutaneous -Tissue Removed Subcutaneous Subcutaneous Subcutaneous -Post Debridement (cm) - Length 2.0 2.6 2.9 -Post Debridement (cm) - Width 2.7 3.5 3.0 -Post Debridement (cm) - Depth 0.4 0.4 0.5 -Total Square (Post) (cm) 5.40 9.10 8.70 -Area of Debridement (cm) - Length 2.0 2.6 2.9 -Area of Debridement (cm) - Width 2.7 3.5 3.0 -Total Square (Area) (cm) 5.40 9.10 8.70 -Tunneling No No No -Undermining/Tunneling No No No -Circular Undermining No No No -Wound/Ulcer Outcome Not Healed Not Healed Not Healed -Ulcer Cleansing Rinsed/ Rinsed/ Rinsed/ Irrigated with Irrigated with Irrigated with Saline Saline Saline -Bleeding Controlled with Pressure Pressure Pressure -Treatment Response Procedure Procedure Procedure Tolerated Well Tolerated Well Tolerated Well -Assistive Device(s) Walker -Debridement - Subq, 1st 20sq cm No Yes Yes Pain Scale: 0-10 Numeric Is Patient Pain Free? Yes Yes Yes WC - Nurse 3 - General Ulcer D/C NN Start: 12/08/23 13:58 Freq: Status: Active Protocol: Activity Type Activity Date Activity User E-sign Co-sign Detail Recorded Client Recorded Date Recorded By Document 12/08/23 15:27 [place] [id number] 12/08/23 15:27 RB Document 12/15/23 09:37 JF [id number] 12/15/23 09:38 JF Document 12/22/23 14:35 wound center 12/22/23 14:41 12/08/23 12/15/23 12/22/23 15:27 09:37 14:35 Wound Care Center Nurse 3 #2inferior medial stump -Ulcer Cleansing Rinsed/ Rinsed/ Irrigated with Irrigated with Saline Saline -Foul Odor after Cleansing No -Primary Dressing Applied Promogran Promogran Promogran Nicole Matter Nicole Matter Nicole Matter -Primary Dressing Covered/Secured with Dry Gauze,Dry Dry Gauze & Dry Gauze & Gauze & Roll Roll Gauze, Roll Gauze, Gauze,Secured Secured with Secured with with Tape Tape Tape -Promogran Nicole Matter 1 1 1 #1 RT superior stump -Ulcer Cleansing Rinsed/ Rinsed/ Irrigated with Irrigated with Saline Saline -Foul Odor after Cleansing No -Primary Dressing Applied Promogran Nicole Matter -Other Dressing nicole -Primary Dressing Covered/Secured with Dry Gauze,Dry Dry Gauze, Dry Gauze Gauze & Roll Secured with Gauze,Secured Tape with Tape -Promogran Nicole Matter 0 Treatment Response Procedure Tolerated Well Pain Scale: 0-10 Numeric Is Patient Pain Free? Yes Yes Yes WC - Visit Discharge Discharge Condition Stable Stable Stable Ambulatory Status Wheelchair Ambulatory, Walker, Walker Wheelchair Transportation Private Auto Private Auto Private Auto Medication Reconcilliation completed & No Yes No provided to patient/care provider Clinical Summary of Care Provided Yes Yes Yes Assessment/Plan Assessment/Plan (1) Surgical wound dehiscence: CODE(S): T81.31XA - Disruption of external operation (surgical) wound, not elsewhere classified, initial encounter QUALIFIERS: Encounter type: subsequent encounter Qualified Code(s): T81.31XD - Disruption of external operation (surgical) wound, not elsewhere classified, subsequent encounter (2) History of right below knee amputation: CODE(S): Z89.511 - Acquired absence of right leg below knee (3) Morbid obesity with BMI of 50.0-59.9, adult: CODE(S): E66.01 - Morbid (severe) obesity due to excess calories; Z68.43 - Body mass index [BMI] 50.0-59.9, adult (4) Diabetes mellitus, type 2: CODE(S): E11.9 - Type 2 diabetes mellitus without complications QUALIFIERS: Diabetes mellitus residential insulin use: with rodent 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 use Diabetes mellitus complication status: with kidney complications Diabetes mellitus complication detail: with chronic kidney disease Chronic kidney disease stage: stage 3 (moderate) Chronic kidney disease stage 3 subtype: stage 3a (GFR 45-59) Qualified Code(s): E11.22 - Type 2 diabetes mellitus with diabetic chronic kidney disease; N18.31 - Chronic kidney disease, stage 3a; 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 (5) Below knee amputation: CODE(S): S88.119A - 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, unspecified lower leg, initial encounter QUALIFIERS: Encounter type: sequela Laterality: bilateral Qualified Code(s): S88.111S - 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, right lower leg, sequela; S88.112S - 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, left lower leg, sequela (6) Hypothyroid: CODE(S): E03.9 - Hypothyroidism, unspecified QUALIFIERS: Hypothyroidism type: acquired Qualified Code(s): E03.9 - Hypothyroidism, unspecified (7) Benign essential HTN: CODE(S): I10 - Essential (primary) hypertension (8) Breast cancer in female: CODE(S): C50.919 - Malignant neoplasm of unspecified site of unspecified female breast QUALIFIERS: Breast location: unspecified site of breast Estrogen receptor status: positive Laterality: right Qualified Code(s): C50.911 - Malignant neoplasm of unspecified site of right female breast; Z17.0 - Estrogen receptor positive status [ER+] (9) History of kidney stones: CODE(S): Z87.442 - Personal history of urinary calculi (10) Physical debility: CODE(S): R53.81 - Other malaise (11) Hx of supraventricular tachycardia: CODE(S): Z86.79 - Personal history of other diseases of the circulatory system (12) Hyperlipidemia: CODE(S): E78.5 - Hyperlipidemia, unspecified (13) GERD (gastroesophageal reflux disease): CODE(S): K21.9 - Gastro-esophageal reflux disease without esophagitis (14) Pulmonary hypertension: CODE(S): I27.20 - Pulmonary hypertension, unspecified (15) Chronic renal failure, stage 3 (moderate): CODE(S): N18.30 - Chronic kidney disease, stage 3 unspecified (16) Diverticulosis: CODE(S): K57.90 - Diverticulosis of intestine, part unspecified, without perforation or abscess without bleeding (17) Rheumatoid arthritis: CODE(S): M06.9 - Rheumatoid arthritis, unspecified (18) History of endometrial cancer: CODE(S): Z85.42 - Personal history of malignant neoplasm of other parts of uterus (19) History of total abdominal hysterectomy and bilateral salpingo- oophorectomy: CODE(S): Z90.710 - Acquired absence of both cervix and uterus; Z90.722 - Acquired absence of ovaries, bilateral; Z90.79 - Acquired absence of other genital organ(s) (20) History of cardiac radiofrequency ablation: CODE(S): Z98.890 - Other specified postprocedural states (21) History of carpal tunnel release: CODE(S): Z98.890 - Other specified postprocedural states (22) History of tonsillectomy: CODE(S): Z90.89 - Acquired absence of other organs (23) Right leg swelling: CODE(S): M79.89 - Other specified soft tissue disorders PLAN: Plan This is a 63-year-old female with multiple pre-existing medical problems, who presented with a 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 She underwent right below-knee amputation on October 19, 2023 at [facility]. Shortly following the removal of her surgical luisana, several weeks following surgery, she developed a surgical wound dehiscence. She has been referred to the [facility] for definitive management. The patient has been advised to elevate her right lower extremity to heart level is much as possible. She admits to sleeping on a flat mattress at night. Elevation will help to minimize swelling. She has been encouraged to continue using a compression wrap and stump sap fico business analyst at the site, and to collaborate with her prosthetists at [facility] to maintain compression to the site. These measures are to diminish the swelling and edema. Optimizing nutritional intake and glycemic control has also been discussed. A nutritional supplement, such as Glucerna, would be appropriate. We are to continue the use of Nicole topically to the dehiscent surgical wound. The patient and her have been instructed in the appropriate means of application. Nicole is to be applied on a daily basis. The patient is to follow-up in 1 week for reassessment. We may consider the use of a skin substitute or Wound VAC in the future. The patient is to undergo right mastectomy in 8 days relative to her recent diagnosis of right breast cancer. Total time: 26 minutes
== END 2023-12-25 23:59 | disposition home or self-care (01) ==
LOC: WC 13:45
PROVIDERS: PCP Nurse Practitioner Family; Referring Provider Nurse Practitioner Family; Visit Provider Surgery
DX: T81.31XA Disruption of external operation (surgical) wound, not elsewhere classified, initial encounter (principal); M06.9 Rheumatoid arthritis, unspecified; Z89.511 Acquired absence of right leg below knee; I27.20 Pulmonary hypertension, unspecified; E66.01 Morbid (severe) obesity due to excess calories; C50.911 Malignant neoplasm of unspecified site of right female breast; Z68.43 Body mass index [BMI] 50.0-59.9, adult; E11.42 Type 2 diabetes mellitus with diabetic polyneuropathy; E11.29 Type 2 diabetes mellitus with other diabetic kidney complication; E11.22 Type 2 diabetes mellitus with diabetic chronic kidney disease; E11.610 Type 2 diabetes mellitus with diabetic neuropathic arthropathy; Z79.4 Long term (current) use of insulin; N18.31 Chronic kidney disease, stage 3a; Z82.3 Family history of stroke; Z90.710 Acquired absence of both cervix and uterus; Z90.722 Acquired absence of ovaries, bilateral; K57.90 Diverticulosis of intestine, part unspecified, without perforation or abscess without bleeding; Z17.0 Estrogen receptor positive status [ER+]; Z80.41 Family history of malignant neoplasm of ovary; E78.5 Hyperlipidemia, unspecified; E03.9 Hypothyroidism, unspecified; I12.9 Hypertensive chronic kidney disease with stage 1 through stage 4 chronic kidney disease, or unspecified chronic kidney disease; K21.9 Gastro-esophageal reflux disease without esophagitis; S88.11 Complete traumatic amputation at level between knee and ankle; S88.112S Complete traumatic amputation at level between knee and ankle, left lower leg, sequela; G47.33 Obstructive sleep apnea (adult) (pediatric); Z79.82 Long term (current) use of aspirin; Z87.442 Personal history of urinary calculi; R53.81 Other malaise; Z86.79 Personal history of other diseases of the circulatory system; Z85.42 Personal history of malignant neoplasm of other parts of uterus; Z98.890 Other specified postprocedural states; Z90.89 Acquired absence of other organs; M79.89 Other specified soft tissue disorders
CPT/HCPCS: 11042; 99214; G0463

== ENCOUNTER → 2023-12-24 | Outpatient (CLI) | payer OTHER, SELFPAY ==
--- NOTE | 2023-12-24 13:37 | CT_ITS ---
STUDY: CT ABDOMEN AND PELVIS WITHOUT CONTRAST REASON FOR EXAM: Female, 63 years old. RENAL/URETERAL STONES RADIATION DOSAGE (If Supplied By Facility): CTDIvol = ( 24.18 ) mGy, DLP = ( 1389.41 ) mGycm TECHNIQUE: Transaxial images were obtained from the dome of the diaphragm to the symphysis pubis without oral contrast, and without intravenous contrast. Sagittal and coronal images were reconstructed. Individualized dose optimization techniques were used for this CT. COMPARISON: Comparison is made with prior study dated November 19, 2023. FINDINGS: There is a 2.3 cm nodule in the axillary region of the right breast with a tissue clip marker within it. The visualized lung bases are unremarkable. Coronary artery calcification. Normal liver. The patient is status post cholecystectomy. Borderline splenomegaly. Normal pancreas. Normal bilateral adrenal glands. Normal right kidney. A left-sided double-J stent catheter is seen with the proximal portion in the left renal pelvis and distal portion in the left-sided urinary bladder. Normal visualized stomach. Normal small intestine. Normal colon. There is non-visualization of the appendix. There is scattered atherosclerotic calcification of the abdominal aorta, without a demonstrated aneurysm. Normal inferior vena cava. There is small retroperitoneal lymphadenopathy with enlarged nodes no greater than 10mm in the short axis diameter. The urinary bladder is empty. Mild degree of bladder wall thickening. There is absence of the uterus consistent with a prior hysterectomy. Normal abdominal wall. Disc space narrowing at the L4-L5 and L5-S1 levels. CT/Abdomen/Pelvis without Cont IMPRESSION: Stable appearance of the left double-J stent catheter. Electronically Signed: Michele Gilliland MD at 14:40 EDT ,
== END | disposition home or self-care (01) ==
LOC: CT 13:35
PROVIDERS: PCP Nurse Practitioner Family; Referring Provider Urology; Visit Provider Urology
DX: N20.1 Calculus of ureter (principal)
CPT/HCPCS: 74176

== ENCOUNTER 2023-12-29 10:00 | Day surgery (SDC) | payer OTHER, SELFPAY ==
--- NOTE | 2023-12-29 12:46 | EKG12_ITS ---
Test Reason : PREOP Blood Pressure : / mmHG Vent. Rate : 071 BPM Atrial Rate : 071 BPM P-R Int : 172 ms QRS Dur : 096 ms QT Int : 434 ms P-R-T Axes : 266 -08 049 degrees QTc Int : 471 ms Unusual P axis, possible ectopic atrial rhythm Nonspecific T wave abnormality Abnormal ECG Confirmed by SWAPNIL BANKS, CULLEN ([id number]), photo editor ISSAC DE LEON ([id number]) on 12/30/2023 5:44:33 AM Referred By: Steffanie Knapp Confirmed By:CULLEN KRAFT MD
[2023-12-29 14:09] LABS: Thyroid Stim Hormone (TSH) 0.62 uIU/mL (0.358-3.74)
[2023-12-29 14:31] LABS: Hemoglobin A1c 5.8 % (3.8-5.6)
== END 2023-12-30 23:59 | disposition home or self-care (01) ==
LOC: PAT 06-16 11:30
PROVIDERS: Anesthesiology; PCP Nurse Practitioner Family; Referring Provider Surgery; Visit Provider Surgery
DX: Z01.818 Encounter for other preprocedural examination (principal)
CPT/HCPCS: 36415; 83036; 84443; 93005

== ENCOUNTER 2024-01-19 13:15 | Outpatient (RCR) | payer OTHER, SELFPAY ==
[2023-12-26 02:37] VITALS: BP 106/40; PULSE 74; RESP 18; TEMP 35.9; BMI 54.1
[2023-12-29 14:08] VITALS: BP 115/52; PULSE 71; RESP 18; TEMP 36.5; BMI 54.1
--- NOTE | 2023-12-29 15:04 | NURSING ---
call made to Dr. Dalal office. informed office nurse that pt was in a wound center and a wound culture was obtained and sent to lab for anaerobic and aerobic. wanting to let office to know d/t pt is to have breast surgery tomorrow (12/30/23)
--- NOTE | 2023-12-29 16:21 | HP.PCM_ITS ---
History of Present Illness Date of Service: 12/29/23 Chief Complaint: Surgical wound dehiscence of the right below-knee amputation stump incision History of Wound: This is a 63-year-old morbidly obese female with multiple pre- existing medical conditions. She is a longstanding diabetic and has been poorly controlled. She suffers from diabetic peripheral neuropathy. She developed a right Charcot foot deformity, with collapse of her right arch. Her condition resulted in a right below-knee amputation which was performed at [facility] by Dr. Narayan on October 19, 2023. The patient had a relatively uncomplicated postoperative course. She was transferred to the [facility] rehabilitation unit, where she continued to convalesce for several weeks. Several weeks postoperatively, Dr. Damon's staff removed the patient's surgical luisana, and the patient subsequently developed a dehiscence. She was referred to the [facility] for management of her right below-knee amputation stump incisional dehiscence. The patient had been using Neosporin and gauze topically. She had also been using a Coban wrap and has been fitted with a stump program scheduler by [employer]. The patient's multiple pre-existing medical conditions are listed elsewhere. Of note, she underwent right breast needle biopsy on November 26, 2023, which was indicative of invasive ductal carcinoma. She is under the care of other providers for management of this recent diagnosis, including her surgeon, Dr. Knapp. Laboratory results have been obtained dated December 03, 2023, with results as follows: Sodium 139, potassium 4.0, chloride 106, BUN 21, creatinine 1.21, gl ucose 120, calcium 9.1, total bilirubin 0.60, AST 23, ALT 29, alkaline phosphatase 103, total protein 7.1, albumin 3.7. [facility] Medical History Wears glasses Post-menopausal Cancer Anxiety Open wound Thyroid disease Insulin dependent diabetes mellitus Uses wheelchair Fatty liver High cholesterol Dietary restriction Non-smoker History of edema History of echocardiogram History of stress test Cardiology follow-up encounter Surgical wound dehiscence Right leg swelling History of endometrial cancer Rheumatoid arthritis Diverticulosis Chronic renal failure, stage 3 (moderate) Pulmonary hypertension GERD (gastroesophageal reflux disease) Hyperlipidemia History of kidney stones Breast cancer in female Morbid obesity with BMI of 50.0-59.9, adult Hydronephrosis Ureteral calculus Charcot ankle Diabetic neuropathy Morbid obesity with BMI of 50.0-59.9, adult Diverticulosis Diabetes mellitus, type 2 Chronic renal failure (CRF), stage 3a Anemia Rheumatoid arthritis Chronic pain CPAP (continuous positive airway pressure) dependence Pulmonary hypertension BRITT (obstructive sleep apnea) Thyromegaly Hx of supraventricular tachycardia Nephrolithiasis Rosacea Fatty liver External hemorrhoid GERD without esophagitis Benign essential HTN Bilateral carpal tunnel syndrome Hyperlipidemia Low vitamin B12 level Multinodular goiter Tubular adenoma Adenocarcinoma of endometrium Home Medications ?Medication ?Instructions ?Recorded ?Last Taken ?Type aspirin 81 mg tablet,delayed 81 mg PO DAILY Heart health 01/11/16 12/22/23 History release cetirizine 10 mg capsule 10 mg PO DAILY Allergies 01/11/16 Unknown History metoprolol succinate 100 mg 100 mg PO DAILY BP 01/11/16 07/03/17 History tablet,extended release 24 hr multivitamin 1 ea PO DAILY Supplement 01/11/16 Unknown History omeprazole 40 mg capsule,delayed 40 mg PO DAILY GERD 01/11/16 07/03/17 History release simvastatin 20 mg tablet 20 mg PO QHS Cholestrol 01/11/16 Unknown History cyanocobalamin (vitamin B-12) 1,000 mcg PO DAILY Supplement 07/02/17 Unknown History 1,000 mcg sublingual tablet hydroxychloroquine 200 mg tablet 200 mg PO BID Platelets 04/28/18 Unknown History (Plaquenil) pregabalin 150 mg capsule (Lyrica) 150 mg PO QHS Nerve pain 06/14/18 Unknown History ferrous sulfate 325 mg (65 mg 325 mg PO DAILY supplement 04/25/20 Unknown History iron) tablet (Feosol) allopurinol 100 mg tablet 100 mg PO DAILY #30 tabs 11/18/23 Unknown Rx ascorbic acid (vitamin C) 500 mg 1,000 mg (2 x 500 mg) PO DAILY #30 11/18/23 Unknown Rx tablet tabs calcium carbonate (Oyster Shell 500 mg PO BREAKFAST #30 tabs 11/18/23 Unknown Rx Calcium 500) insulin lispro 100 unit/mL 3 unit (0.03 mL) subcut TID PRN 11/18/23 Unknown Rx subcutaneous pen elevated BS #15 mL insulin regular hum U-500 conc 500 See Rx Instructions .Route 11/18/23 Unknown Rx unit/mL(3 mL) subcut pen .COMPLEX Blood sugar 30 days #5 pens pregabalin 100 mg capsule (Lyrica) 100 mg PO BID #60 caps 11/19/23 Unknown Rx blood sugar diagnostic (OneTouch #100 ea 12/03/23 Unknown Rx Ultra Test strips) blood-glucose sensor (Dexcom G6 #9 ea 12/03/23 Unknown Rx Sensor device) blood-glucose transmitter (Dexcom #1 ea 12/03/23 Unknown Rx G6 Transmitter device) bupropion HCl 300 mg 24 hr tablet, 300 mg PO DAILY #90 tabs 12/03/23 Unknown Rx extended release levothyroxine 300 mcg tablet 300 mcg PO DAILY #30 tabs 12/03/23 Unknown Rx losartan 50 mg tablet (Cozaar) 50 mg PO DAILY #90 tabs 12/03/23 Unknown Rx OneTouch Delica Plus Lancet 33 #100 ea 12/04/23 Unknown Rx gauge (lancets) blood sugar diagnostic (OneTouch #100 ea 12/04/23 Unknown Rx Ultra Test strips) buspirone 5 mg tablet 5 mg PO TID #90 tabs 12/11/23 Unknown Rx alprazolam 0.5 mg tablet (Xanax) 0.5 mg PO TID PRN PRN panic attack 12/25/23 Unknown History fiber 1 cap PO DAILY 12/25/23 Unknown History oxycodone 5 mg capsule 5 mg PO Q6H PRN PRN pain 12/25/23 Unknown History Allergy/AdvReac Type Severity Reaction Status Date / Time No Known Allergies Allergy Verified 12/25/23 08:20 Family History Mother Ovarian cancer Hypertension Arthritis Uterine cancer Fibrocystic disease of breast Hypothyroid Father , Age 86-CHF Hypertension Arthritis Diverticulitis of colon Depression CAD (coronary artery disease) Sister Hypertension Depression CVA (cerebral vascular accident) Fibrocystic disease of breast Diabetes Bleeding disorder Portal hypertension Surgical History Hx of cystoscopy Hx of total thyroidectomy History of tonsillectomy History of carpal tunnel release History of cardiac radiofrequency ablation History of total abdominal hysterectomy and bilateral salpingo-oophorectomy History of below-knee amputation S/P cystoscopy with ureteral stent placement History of right below knee amputation History of hand surgery H/O cardiac radiofrequency ablation (02/15/13) History of right and left heart catheterization (07/03/17) H/O colonoscopy H/O abdominal hysterectomy H/O carpal tunnel repair Previous section History of tonsillectomy Hx of cholecystectomy Surgical menopause Social History Smoking Status: Never smoker second hand exposure: No alcohol intake: never substance use type: does not use caffeine: No Vital Signs Vital Signs Vital Signs: 12/29/23 14:08 Temperature 97.7 F L Temperature Source Temporal Pulse Rate 71 Respiratory Rate 18 Blood Pressure 115/52 L Blood Pressure Mean 73 Blood Pressure Source Monitor Blood Pressure Position Semi-Fowlers Blood Pressure Location Left Arm Weight Weight: 335 lb Body Mass Index (BMI) 54.1 Physical Exam Narrative ECOG 2, seen in a wheelchair Const alert, oriented x3 and no apparent distress Constitutional Narrative: The patient is morbidly obese. General Appearance: cooperative and comfortable Nutritional Appearance: morbidly obese HEENT normocephalic and head/scalp atraumatic Face and Sinus: normal facial exam External Ear: external ears normal Mouth: oral and palatal mucosa normal Eyes General Eye: normal appearance of both eyes Neck full ROM Resp normal respiratory effort, normal air movement, no retractions and no use of accessory muscles Effort and Inspection: able to speak in complete sentences Cardio Jugular Venous Distention: Negative for JVD GI soft to palpation and non-tender Extremity Extremity Narrative: Right lower extremity below-knee amputation, wound dressed left uninterrupted. Skin Wound Narrative: The dehiscence of the right below-knee amputation stump persists. There are 2 areas of involvement. Erythema is noted about the dehiscent wound, which appears to be a new finding. The larger of the 2 sites is generally pink, with a moderate amount of bioburden and nonviable tissue. Centrally, there is a small area of depression, which is deeper than the surrounding wound. The se cond site, much smaller, also demonstrates a moderate amount of bioburden. Dimensions of each site are documented elsewhere. The dehiscent wound appears to be slightly larger in size, and the developing erythema is suspicious for possible early cellulitis. Therefore, swab cultures have been obtained for aerobic and anaerobic bacterial growth. Neuro oriented x3, CN's II-XII intact bilaterally, moves all extremities and no focal motor deficits Sensorium / Orientation: awake, alert, oriented to person, oriented to place and oriented to time Coordination / Balance: [id number] test normal Speech: speech normal Gait (Neuro): unable to assess gait Psych mental status grossly normal Debridement Note Debridement Note Wound debrided: Dehiscent right below-knee amputation stump incision Laterality: Right Type of Debridement: Excisional debridement Anesthesia Used: 5% Lidocaine Gel Depth: Down to and including healthy tissue and in the subcutaneous layer Percentage of wound debrided: 100 Instrument Used: 5mm curette, Forceps and - (Scissors) Tissue Removed: Bioburden and nonviable tissue Severity: Fat Layer Exposed Amount of bleeding with debridement: Mild Bleeding Controlled with: Compression and gauze Patient tolerated procedure: Patient tolerated procedure well Debridement Free Text: Because of the development of periwound erythema, swab cultures have been obtained of the wound for aerobic and anaerobic bacterial growth. Post-Debridement Measurements and Additional Note: Post-Debridement Measurements/Treatment - Nurse 1 - General Ulcer Assessment Start: 12/29/23 14:07 Freq: Status: Active Protocol: [email or web address] Activity Type Activity Date Activity User E-sign Co-sign Detail Recorded Client Recorded Date Recorded By Document 12/29/23 14:08 wound center 12/29/23 14:11 12/29/23 14:08 - Today's Visit Information Type of service Follow-up Visit (Physician/ENGRAVER PICTURE ) Arrival Mode Ambulatory Transfer Assistance None Patient Identification Verified (Name & Yes ) Patient Requires Transmission-Based No Precautions Height and Weight Body Mass Index (BMI) 54.1 BMI Classification Obese Vital Signs Temperature (97.8 F-99.1 F) 97.7 F L Temperature Source Temporal Pulse Rate (60-100) 71 Pulse Location Monitor Respiratory Rate (12-18) 18 Respiratory rate source Observation Blood Pressure (90/60-120/80) 115/52 L Blood Pressure Mean 73 Source Monitor Position Semi-Fowlers Blood Pressure Location Left Arm History Since Last Visit- (Skip if this is Patient's initial visit) Have you changed medications since your No last visit? Any new allergies or adverse reactions No Had a fall/change in ADL's that may No increase risk of falls Signs or symptoms of abuse and/or No neglect since last visit Have you been in the hospital since your No last visit? Has dressing in place as prescribed Yes Has compression in place as prescribed Yes Has offloadiing in place as prescribed No Experienced any changes in pain level or No management Pain Scale: 0-10 Numeric Is Patient Pain Free? Yes WC - Nurse 1 - General Ulcer Measurement Start: 12/29/23 14:07 Freq: Status: Active Protocol: Activity Type Activity Date Activity User E-sign Co-sign Detail Recorded Client Recorded Date Recorded By Document 12/29/23 14:08 wound center 12/29/23 14:11 12/29/23 14:08 Wound Center Nurse 1 #2inferior medial stump -Combined with other wound No -Current Size (cm) - Length 0.3 -Current Size (cm) - Width 0.4 -Current Size (cm) - Depth 0.1 -Total Square Cm 0.12 -Tunneling No -Undermining/Tunneling No -Circular Undermining No -Exudate Amt Medium -Exudate Type Serosanguineous -Wound Margin Thickened & Rolled Under -Granulation Amt Medium (34-66%) -Granulation Quality Mcallister -Slough/Fibrin Yes -Necrosis Amt Medium (34-66%) -Necrotic Tissue Type Adherent Slough -Structure Exposed N/A -Texture (Fadumo-wound Skin Appearance) Assessed -Moisture (Fadumo-wound Skin Appearance) Assessed -Color (Fadumo-wound Skin Appearance) Assessed -Temperature (Fadumo-wound Skin No Abnormality Appearance) (Pt Warm) -Tenderness on Palpation (Fadumo-wound No Skin Appearance) -Ulcer Cleansing Wound Cleanser -Foul Odor after Cleansing No -Anesthetic Used 5% Lidocaine Gel #1 RT superior stump -Combined with other wound No -Current Size (cm) - Length 2.5 -Current Size (cm) - Width 4 -Current Size (cm) - Depth 0.2 -Total Square Cm 10.0 -Tunneling No -Undermining/Tunneling No -Circular Undermining No -Exudate Amt Medium -Exudate Type Serosanguineous -Wound Margin Thickened & Rolled Under -Granulation Amt Medium (34-66%) -Granulation Quality Mcallister -Slough/Fibrin Yes -Necrosis Amt Medium (34-66%) -Necrotic Tissue Type Adherent Slough -Structure Exposed N/A -Texture (Fadumo-wound Skin Appearance) Assessed, Scarring -Moisture (Fadumo-wound Skin Appearance) Assessed -Color (Fadumo-wound Skin Appearance) Assessed -Temperature (Fadumo-wound Skin No Abnormality Appearance) (Pt Warm) -Tenderness on Palpation (Fadumo-wound No Skin Appearance) -Ulcer Cleansing Wound Cleanser -Foul Odor after Cleansing No -Anesthetic Used 5% Lidocaine Gel WC - Nurse 2 - General Ulcer CM Notes Start: 12/29/23 14:07 Freq: Status: Active Protocol: Activity Type Activity Date Activity User E-sign Co-sign Detail Recorded Client Recorded Date Recorded By Document 12/29/23 14:42 DS [id number] 12/29/23 15:19 DS 12/29/23 14:42 Wound Center Nurse 2 #2inferior medial stump -Time 14:42 -Correct Patient Yes -Correct Side, Site, Position Yes -Correct Procedure Yes -Procedure Performed Yes -Type of Procedure Debridement -Clinical Debridement Subcutaneous -Tissue Removed Subcutaneous -Post Debridement (cm) - Length 0.5 -Post Debridement (cm) - Width 0.5 -Post Debridement (cm) - Depth 0.1 -Total Square (Post) (cm) 0.25 -Area of Debridement (cm) - Length 0.5 -Area of Debridement (cm) - Width 0.5 -Total Square (Area) (cm) 0.25 -Tunneling No -Undermining/Tunneling No -Circular Undermining No -Wound/Ulcer Outcome Not Healed -Ulcer Cleansing Rinsed/ Irrigated with Saline -Bleeding Controlled with Pressure -Treatment Response Procedure Tolerated Well -Debridement - Subq, 1st 20sq cm No #1 RT superior stump -Time 14:42 -Correct Patient Yes -Correct Side, Site, Position Yes -Correct Procedure Yes -Procedure Performed Yes -Type of Procedure Debridement -Clinical Debridement Subcutaneous -Tissue Removed Subcutaneous -Post Debridement (cm) - Length 2.7 -Post Debridement (cm) - Width 3.5 -Post Debridement (cm) - Depth 0.5 -Total Square (Post) (cm) 9.45 -Area of Debridement (cm) - Length 2.7 -Area of Debridement (cm) - Width 3.5 -Total Square (Area) (cm) 9.45 -Tunneling No -Undermining/Tunneling No -Circular Undermining No -Wound/Ulcer Outcome Not Healed -Ulcer Cleansing Rinsed/ Irrigated with Saline -Bleeding Controlled with Pressure -Treatment Response Procedure Tolerated Well -Debridement - Subq, 1st 20sq cm Yes Pain Scale: 0-10 Numeric Is Patient Pain Free? Yes WC - Nurse 3 - General Ulcer D/C NN Start: 12/29/23 14:07 Freq: Status: Active Protocol: Activity Type Activity Date Activity User E-sign Co-sign Detail Recorded Client Recorded Date Recorded By Document 12/29/23 14:40 wound center 12/29/23 14:41 12/29/23 14:40 Wound Care Center Nurse 3 #2inferior medial stump -Ulcer Cleansing Rinsed/ Irrigated with Saline -Primary Dressing Applied Promogran Geovanna Matter -Primary Dressing Covered/Secured with Dry Gauze & Roll Gauze, Secured with Tape -Promogran Geovanna Matter 1 #1 RT superior stump -Primary Dressing Covered/Secured with Dry Gauze Pain Scale: 0-10 Numeric Is Patient Pain Free? Yes WC - Visit Discharge Discharge Condition Stable Ambulatory Status Wheelchair Transportation Private Auto Accompanied by Medication Reconcilliation completed & No provided to patient/care provider Clinical Summary of Care Provided Yes Assessment/Plan Assessment/Plan (1) Surgical wound dehiscence: CODE(S): T81.31XA - Disruption of external operation (surgical) wound, not elsewhere classified, initial encounter QUALIFIERS: Encounter type: subsequent encounter Qualified Code(s): T81.31XD - Disruption of external operation (surgical) wound, not elsewhere classified, subsequent encounter (2) History of right below knee amputation: CODE(S): Z89.511 - Acquired absence of right leg below knee (3) Morbid obesity with BMI of 50.0-59.9, adult: CODE(S): E66.01 - Morbid (severe) obesity due to excess calories; Z68.43 - Body mass index [BMI] 50.0-59.9, adult (4) Diabetes mellitus, type 2: CODE(S): E11.9 - Type 2 diabetes mellitus without complications QUALIFIERS: Diabetes mellitus termination clerk insulin use: with snf use Diabetes mellitus complication status: with kidney complications Diabetes mellitus complication detail: with chronic kidney disease Chronic kidney disease stage: stage 3 (moderate) Chronic kidney disease stage 3 subtype: stage 3a (GFR 45-59) Qualified Code(s): E11.22 - Type 2 diabetes mellitus with diabetic chronic kidney disease; N18.31 - Chronic kidney disease, stage 3a; Z79.4 - termination clerk (current) use of insulin (5) Below knee amputation: CODE(S): S88.119A - 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, unspecified lower leg, initial encounter QUALIFIERS: Encounter type: sequela Laterality: bilateral Qualified Code(s): S88.111S - 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, right lower leg, sequela; S88.112S - 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, left lower leg, sequela (6) Hypothyroid: CODE(S): E03.9 - Hypothyroidism, unspecified QUALIFIERS: Hypothyroidism type: acquired Qualified Code(s): E03.9 - Hypothyroidism, unspecified (7) Benign essential HTN: CODE(S): I10 - Essential (primary) hypertension (8) Breast cancer in female: CODE(S): C50.919 - Malignant neoplasm of unspecified site of unspecified female breast QUALIFIERS: Breast location: unspecified site of breast Estrogen receptor status: positive Laterality: right Qualified Code(s): C50.911 - Malignant neoplasm of unspecified site of right female breast; Z17.0 - Estrogen receptor positive status [ER+] (9) History of kidney stones: CODE(S): Z87.442 - Personal history of urinary calculi (10) Physical debility: CODE(S): R53.81 - Other malaise (11) Hx of supraventricular tachycardia: CODE(S): Z86.79 - Personal history of other diseases of the circulatory system (12) Hyperlipidemia: CODE(S): E78.5 - Hyperlipidemia, unspecified (13) GERD (gastroesophageal reflux disease): CODE(S): K21.9 - Gastro-esophageal reflux disease without esophagitis (14) Pulmonary hypertension: CODE(S): I27.20 - Pulmonary hypertension, unspecified (15) Chronic renal failure, stage 3 (moderate): CODE(S): N18.30 - Chronic kidney disease, stage 3 unspecified (16) Diverticulosis: CODE(S): K57.90 - Diverticulosis of intestine, part unspecified, without perforation or abscess without bleeding (17) Rheumatoid arthritis: CODE(S): M06.9 - Rheumatoid arthritis, unspecified (18) History of endometrial cancer: CODE(S): Z85.42 - Personal history of malignant neoplasm of other parts of uterus (19) History of total abdominal hysterectomy and bilateral salpingo- oophorectomy: CODE(S): Z90.710 - Acquired absence of both cervix and uterus; Z90.722 - Acquired absence of ovaries, bilateral; Z90.79 - Acquired absence of other jade eduardo organ(s) (20) History of cardiac radiofrequency ablation: CODE(S): Z98.890 - Other specified postprocedural states (21) History of carpal tunnel release: CODE(S): Z98.890 - Other specified postprocedural states (22) History of tonsillectomy: CODE(S): Z90.89 - Acquired absence of other organs (23) Right leg swelling: CODE(S): M79.89 - Other specified soft tissue disorders PLAN: Plan This is a 63-year-old female with multiple pre-existing medical problems, who presented with a 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 She underwent right below-knee amputation on October 19, [address] [facility]. Shortly following the removal of her surgical luisana, several weeks following surgery, she developed a surgical wound dehiscence. She has been referred to the [facility] for definitive management. The patient has been advised to elevate her right lower extremity to heart level is much as possible. She admits to sleeping on a flat mattress at night. Elevation will help to minimize swelling. She has been encouraged to continue using a compression wrap and stump program scheduler at the site, and to collaborate with her prosthetists at [facility] to maintain compression to the site. These measures are to diminish the swelling and edema. Optimizing nutritional intake and glycemic control has also been discussed. A nutritional supplement, such as Glucerna, would be appropriate. We are to continue the use of Geovanna topically to the dehiscent surgical wound. The patient and her have been instructed in the appropriate means of application. Geovanna is to be applied on a daily basis. Because of the development of periwound erythema, swab cultures have been obtained for aerobic and anaerobic bacterial growth. Culture results will be awaited, and antibiotic management directed by the results. The patient is to follow-up in 1 week for reassessment. We may consider the use of a skin substitute or Wound VAC in the future. The patient is scheduled to undergo right mastectomy tomorrow by Dr. Knapp. Her surgeon's office has been notified that there is suspicion that her right leg wound may be infected, as it is felt that the patient's surgeon should be aware of this possibility prior to surgery. Total time: 28 minutes
--- NOTE | 2024-01-01 15:39 | NURSING ---
call placed to pts pharmacy [facility] - 2 scripts called in Bactrim DS po BID dispense #20; Ammoxicillin 500mg po BID dispense #20... call was placed to pt to let her know of the scripts for antibiotics was called in to her pharmacy - d/t wound cultures coming back. pt states she will let Dr. Dalal office know that she is on antibiotics so she can schedule her surgery.
[2024-01-05 15:12] VITALS: BP 150/65; PULSE 73; RESP 18; TEMP 36.1; BMI 54.1
--- NOTE | 2024-01-05 16:56 | PCM.WC.HP ---
History of Present Illness Date of Service: 01/05/24 Chief Complaint: Surgical wound dehiscence of the right below-knee amputation stump incision History of Wound: This is a 63-year-old morbidly obese female with multiple pre-existing medical conditions. She is a longstanding diabetic and has been poorly controlled. She suffers from diabetic peripheral neuropathy. She developed a right Charcot foot deformity, with collapse of her right arch. Her condition resulted in a right below-knee amputation which was performed at [facility] by Dr. Narayan on October 19, 2023. The patient had a relatively uncomplicated postoperative course. She was transferred to the [facility] rehabilitation unit, where she continued to convalesce for several weeks. Several weeks postoperatively, Dr. Damon's staff removed the patient's surgical luisana, and the patient subsequently developed a dehiscence. She was referred to the [facility] for management of her right below-knee amputation stump incisional dehiscence. The patient had been using Neosporin and gauze topically. She had also been using a Coban wrap and has been fitted with a stump bi solutions architect by [employer]. The patient's multiple pre-existing medical conditions are listed elsewhere. Of note, she underwent right breast needle biopsy on November 26, 2023, which was indicative of invasive ductal carcinoma. She is under the care of other providers for management of this recent diagnosis, including her surgeon, Dr. Knapp. Laboratory results have been obtained dated December 03, 2023, with results as follows: Sodium 139, potassium 4.0, chloride 106, BUN 21, creatinine 1.21, glucose 120, calcium 9.1, total bilirubin 0.60, AST 23, ALT 29, alkaline phosphatase 103, total protein 7.1, albumin 3.7. [facility] Medical History Wears glasses Post-menopausal Cancer Anxiety Open wound Thyroid disease Insulin dependent diabetes mellitus Uses wheelchair Fatty liver High cholesterol Dietary restriction Non-smoker History of edema History of echocardiogram History of stress test Cardiology follow-up encounter Surgical wound dehiscence Right leg swelling History of endometrial cancer Rheumatoid arthritis Diverticulosis Chronic renal failure, stage 3 (moderate) Pulmonary hypertension GERD (gastroesophageal reflux disease) Hyperlipidemia History of kidney stones Breast cancer in female Morbid obesity with BMI of 50.0-59.9, adult Hydronephrosis Ureteral calculus Charcot ankle Diabetic neuropathy Morbid obesity with BMI of 50.0-59.9, adult Diverticulosis Diabetes mellitus, type 2 Chronic renal failure (CRF), stage 3a Anemia Rheumatoid arthritis Chronic pain CPAP (continuous positive airway pressure) dependence Pulmonary hypertension BRITT (obstructive sleep apnea) Thyromegaly Hx of supraventricular tachycardia Nephrolithiasis Rosacea Fatty liver External hemorrhoid GERD without esophagitis Benign essential HTN Bilateral carpal tunnel syndrome Hyperlipidemia Low vitamin B12 level Multinodular goiter Tubular adenoma Adenocarcinoma of endometrium Home Medications ?Medication ?Instructions ?Recorded ?Last Taken ?Type aspirin 81 mg tablet,delayed 81 mg PO DAILY Heart health 01/11/16 12/22/23 History release cetirizine 10 mg capsule 10 mg PO DAILY Allergies 01/11/16 Unknown History metoprolol succinate 100 mg 100 mg PO DAILY BP 01/11/16 07/03/17 History tablet,extended release 24 hr multivitamin 1 ea PO DAILY Supplement 01/11/16 Unknown History omeprazole 40 mg capsule,delayed 40 mg PO DAILY GERD 01/11/16 07/03/17 History release simvastatin 20 mg tablet 20 mg PO QHS Cholestrol 01/11/16 Unknown History cyanocobalamin (vitamin B-12) 1,000 mcg PO DAILY Supplement 07/02/17 Unknown History 1,000 mcg sublingual tablet hydroxychloroquine 200 mg tablet 200 mg PO BID Platelets 04/28/18 Unknown History (Plaquenil) pregabalin 150 mg capsule (Lyrica) 150 mg PO QHS Nerve pain 06/14/18 Unknown History ferrous sulfate 325 mg (65 mg 325 mg PO DAILY supplement 04/25/20 Unknown History iron) tablet (Feosol) allopurinol 100 mg tablet 100 mg PO DAILY #30 tabs 11/18/23 Unknown Rx ascorbic acid (vitamin C) 500 mg 1,000 mg (2 x 500 mg) PO DAILY #30 11/18/23 Unknown Rx tablet tabs calcium carbonate (Oyster Shell 500 mg PO BREAKFAST #30 tabs 11/18/23 Unknown Rx Calcium 500) insulin lispro 100 unit/mL 3 unit (0.03 mL) subcut TID PRN 11/18/23 Unknown Rx subcutaneous pen elevated BS #15 mL insulin regular hum U-500 conc 500 See Rx Instructions .Route 11/18/23 Unknown Rx unit/mL(3 mL) subcut pen .COMPLEX Blood sugar 30 days #5 pens pregabalin 100 mg capsule (Lyrica) 100 mg PO BID #60 caps 11/19/23 Unknown Rx blood sugar diagnostic (OneTouch #100 ea 12/03/23 Unknown Rx Ultra Test strips) blood-glucose sensor (Dexcom G6 #9 ea 12/03/23 Unknown Rx Sensor device) blood-glucose transmitter (Dexcom #1 ea 12/03/23 Unknown Rx G6 Transmitter device) bupropion HCl 300 mg 24 hr tablet, 300 mg PO DAILY #90 tabs 12/03/23 Unknown Rx extended release levothyroxine 300 mcg tablet 300 mcg PO DAILY #30 tabs 12/03/23 Unknown Rx losartan 50 mg tablet (Cozaar) 50 mg PO DAILY #90 tabs 12/03/23 Unknown Rx OneTouch Delica Plus Lancet 33 #100 ea 12/04/23 Unknown Rx gauge (lancets) blood sugar diagnostic (OneTouch #100 ea 12/04/23 Unknown Rx Ultra Test strips) buspirone 5 mg tablet 5 mg PO TID #90 tabs 12/11/23 Unknown Rx alprazolam 0.5 mg tablet (Xanax) 0.5 mg PO TID PRN PRN panic attack 12/25/23 Unknown History fiber 1 cap PO DAILY 12/25/23 Unknown History oxycodone 5 mg capsule 5 mg PO Q6H PRN PRN pain 12/25/23 Unknown History Allergy/AdvReac Type Severity Reaction Status Date / Time No Known Allergies Allergy Verified 12/25/23 08:20 Family History Mother Ovarian cancer Hypertension Arthritis Uterine cancer Fibrocystic disease of breast Hypothyroid Father , Age 86-CHF Hypertension Arthritis Diverticulitis of colon Depression CAD (coronary artery disease) Sister Hypertension Depression CVA (cerebral vascular accident) Fibrocystic disease of breast Diabetes Bleeding disorder Portal hypertension Surgical History Hx of cystoscopy Hx of total thyroidectomy History of tonsillectomy History of carpal tunnel release History of cardiac radiofrequency ablation History of total abdominal hysterectomy and bilateral salpingo-oophorectomy History of below-knee amputation S/P cystoscopy with ureteral stent placement History of right below knee amputation History of hand surgery H/O cardiac radiofrequency ablation (02/15/13) History of right and left heart catheterization (07/03/17) H/O colonoscopy H/O abdominal hysterectomy H/O carpal tunnel repair Previous section History of tonsillectomy Hx of cholecystectomy Surgical menopause Social History Smoking Status: Never smoker second hand exposure: No alcohol intake: never substance use type: does not use caffeine: No Vital Signs Vital Signs Vital Signs: 01/05/24 15:12 Temperature 97 F L Temperature Source Temporal Pulse Rate 73 Respiratory Rate 18 Blood Pressure 150/65 H Blood Pressure Mean 93 Blood Pressure Source Monitor Blood Pressure Position Semi-Fowlers Blood Pressure Location Left Arm Weight Weight: 335 lb Body Mass Index (BMI) 54.1 Physical Exam Narrative ECOG 2, seen in a wheelchair Const alert, oriented x3 and no apparent distress Constitutional Narrative: The patient is morbidly obese. General Appearance: cooperative and comfortable Nutritional Appearance: morbidly obese HEENT normocephalic and head/scalp atraumatic Face and Sinus: normal facial exam External Ear: external ears normal Mouth: oral and palatal mucosa normal Eyes General Eye: normal appearance of both eyes Neck full ROM Resp normal respiratory effort, normal air movement, no retractions and no use of accessory muscles Effort and Inspection: able to speak in complete sentences Cardio Jugular Venous Distention: Negative for JVD GI soft to palpation and non-tender Extremity Extremity Narrative: Right lower extremity below-knee amputation, wound dressed left uninterrupted. Skin Wound Narrative: The dehiscence of the right below-knee amputation stump persists. There are 2 areas of involvement. The erythema and cellulitic changes which were noted about the patient's dehiscent wound last week have now diminished significantly. The wounds themselves are generally pink and healthy in appearance, with a moderate amount of bioburden and nonviable tissue. Central to the larger wound, there is a small area of depression, which is deeper than the surrounding wound. The second wound site, much smaller than the other, also demonstrates a moderate amount of bioburden. Dimensions of each site are documented elsewhere. The dehiscent wound wounds appear to be little changed in size, though much improved in terms of diminishing erythema and increasing granulation tissue. Only slight swelling is noted in the patient's amputation stump. Neuro oriented x3, CN's II-XII intact bilaterally, moves all extremities and no focal motor deficits Sensorium / Orientation: awake, alert, oriented to person, oriented to place and oriented to time Coordination / Balance: [id number] test normal Speech: speech normal Gait (Neuro): unable to assess gait Psych mental status grossly normal Debridement Note Debridement Note Wound debrided: Dehiscent right below-knee amputation stump incision Laterality: Right Type of Debridement: Excisional debridement Anesthesia Used: 5% Lidocaine Gel Depth: Down to and including healthy tissue and in the subcutaneous layer Percentage of wound debrided: 100 Instrument Used: 5mm curette, Forceps and - (Scissors) Tissue Removed: Bioburden and nonviable tissue Severity: Fat Layer Exposed Amount of bleeding with debridement: Mild Bleeding Controlled with: Compression and gauze Patient tolerated procedure: Patient tolerated procedure well Post-Debridement Measurements and Additional Note: Post-Debridement Measurements/Treatment - Nurse 1 - General Ulcer Assessment Start: 12/29/23 14:07 Freq: Status: Active Protocol: MATT Activity Type Activity Date Activity User E-sign Co-sign Detail Recorded Client Recorded Date Recorded By Document 12/29/23 14:08 wound center 12/29/23 14:11 RB Document 01/05/24 15:12 RB wound 01/05/24 15:16 RB 12/29/23 01/05/24 14:08 15:12 - Today's Visit Information Type of service Follow-up Visit Follow-up Visit (Physician/MEDICAL RECEPTIONIST MEDICAL ASSISTANT (Physician/MEDICAL RECEPTIONIST MEDICAL ASSISTANT ) ) Arrival Mode Ambulatory Walker, Wheelchair Transfer Assistance None None Patient Identification Verified (Name & Yes Yes ) Patient Requires Transmission-Based No Precautions Height and Weight Body Mass Index (BMI) 54.1 54.1 BMI Classification Obese Obese Vital Signs Temperature (97.8 F-99.1 F) 97.7 F L 97 F L Temperature Source Temporal Temporal Pulse Rate (60-100) 71 73 Pulse Location Monitor Monitor Respiratory Rate (12-18) 18 18 Respiratory rate source Observation Observation Blood Pressure (90/60-120/80) 115/52 L 150/65 H Blood Pressure Mean 73 93 Source Monitor Monitor Position Semi-Fowlers Semi-Fowlers Blood Pressure Location Left Arm Left Arm History Since Last Visit- (Skip if this is Patient's initial visit) Have you changed medications since your No No last visit? Any new allergies or adverse reactions No No Had a fall/change in ADL's that may No No increase risk of falls Signs or symptoms of abuse and/or No No neglect since last visit Have you been in the hospital since your No No last visit? Has dressing in place as prescribed Yes Yes Has compression in place as prescribed Yes Yes Has offloadiing in place as prescribed No No Experienced any changes in pain level or No No management Pain Scale: 0-10 Numeric Is Patient Pain Free? Yes No right stump -Description Aching -Intensity 4 -Duration (hours) Chronic -Pain Behavior Guarding -Pain Aggravating Factors Changing Position, Exercise/ Activity -Alleviating Factors/Interventions Medication -Effectiveness of Alleviating Factor/ Moderately Intervention effective WC - Nurse 1 - General Ulcer Measurement Start: 12/29/23 14:07 Freq: Status: Active Protocol: Activity Type Activity Date Activity User E-sign Co-sign Detail Recorded Client Recorded Date Recorded By Document 12/29/23 14:08 wound center 12/29/23 14:11 RB Document 01/05/24 15:12 RB wound 01/05/24 15:16 RB 12/29/23 01/05/24 14:08 15:12 Wound Center Nurse 1 #2inferior medial stump -Combined with other wound No No -Current Size (cm) - Length 0.3 0.1 -Current Size (cm) - Width 0.4 0.1 -Current Size (cm) - Depth 0.1 0.1 -Total Square Cm 0.12 0.01 -Tunneling No No -Undermining/Tunneling No No -Circular Undermining No No -Exudate Amt Medium Small -Exudate Type Serosanguineous Serosanguineous -Wound Margin Thickened & Distinct, Rolled Under Outline Attached -Granulation Amt Medium (34-66%) Medium (34-66%) -Granulation [place] -Slough/Fibrin Yes Yes -Necrosis Amt Medium (34-66%) Large (67-100%) -Necrotic Tissue Type Adherent Slough Adherent Slough -Structure Exposed N/A N/A -Texture (Fadumo-wound Skin Appearance) Assessed Assessed -Moisture (Fadumo-wound Skin Appearance) Assessed Assessed -Color (Fadumo-wound Skin Appearance) Assessed Assessed -Temperature (Fadumo-wound Skin No Abnormality No Abnormality Appearance) (Pt Warm) (Pt Warm) -Tenderness on Palpation (Fadumo-wound No No Skin Appearance) -Ulcer Cleansing Wound Cleanser Wound Cleanser -Foul Odor after Cleansing No No -Anesthetic Used 5% Lidocaine 5% Lidocaine Gel Gel #1 RT superior stump -Combined with other wound No No -Current Size (cm) - Length 2.5 2.5 -Current Size (cm) - Width 4 3.7 -Current Size (cm) - Depth 0.2 0.2 -Total Square Cm 10.0 9.25 -Tunneling No No -Undermining/Tunneling No No -Circular Undermining No No -Exudate Amt Medium Large -Exudate Type Serosanguineous Serosanguineous -Wound Margin Thickened & Thickened & Rolled Under Rolled Under -Granulation Amt Medium (34-66%) Medium (34-66%) -Granulation [place] -Slough/Fibrin Yes Yes -Necrosis Amt Medium (34-66%) Medium (34-66%) -Necrotic Tissue Type Adherent Slough Adherent Slough -Structure Exposed N/A N/A -Texture (Fadumo-wound Skin Appearance) Assessed, Assessed Scarring -Moisture (Fadumo-wound Skin Appearance) Assessed Assessed -Color (Fadumo-wound Skin Appearance) Assessed Assessed -Temperature (Fadumo-wound Skin No Abnormality No Abnormality Appearance) (Pt Warm) (Pt Warm) -Tenderness on Palpation (Fadumo-wound No No Skin Appearance) -Ulcer Cleansing Wound Cleanser Wound Cleanser -Foul Odor after Cleansing No No -Anesthetic Used 5% Lidocaine 5% Lidocaine Gel Gel WC - Nurse 2 - General Ulcer CM Notes Start: 12/29/23 14:07 Freq: Status: Active Protocol: Activity Type Activity Date Activity User E-sign Co-sign Detail Recorded Client Recorded Date Recorded By Document 12/29/23 14:42 DS [id number] 12/29/23 15:19 DS Document 01/05/24 15:39 DS 1 01/05/24 15:50 DS 12/29/23 01/05/24 14:42 15:39 Wound Center Nurse 2 #2inferior medial stump -Time 14:42 15:41 -Correct Patient Yes Yes -Correct Side, Site, Position Yes Yes -Correct Procedure Yes Yes -Procedure Performed Yes Yes -Type of Procedure Debridement Debridement -Clinical Debridement Subcutaneous Subcutaneous -Tissue Removed Subcutaneous Subcutaneous -Post Debridement (cm) - Length 0.5 0.8 -Post Debridement (cm) - Width 0.5 0.5 -Post Debridement (cm) - Depth 0.1 0.1 -Total Square (Post) (cm) 0.25 0.40 -Area of Debridement (cm) - Length 0.5 0.8 -Area of Debridement (cm) - Width 0.5 0.5 -Total Square (Area) (cm) 0.25 0.40 -Tunneling No No -Undermining/Tunneling No No -Circular Undermining No No -Wound/Ulcer Outcome Not Healed Not Healed -Ulcer Cleansing Rinsed/ Rinsed/ Irrigated with Irrigated with Saline Saline -Bleeding Controlled with Pressure Pressure -Treatment Response Procedure Procedure Tolerated Well Tolerated Well -Debridement - Subq, 1st 20sq cm No No #1 RT superior stump -Time 14:42 15:42 -Correct Patient Yes Yes -Correct Side, Site, Position Yes Yes -Correct Procedure Yes Yes -Procedure Performed Yes Yes -Type of Procedure Debridement Debridement -Clinical Debridement Subcutaneous Subcutaneous -Tissue Removed Subcutaneous Subcutaneous -Post Debridement (cm) - Length 2.7 2.8 -Post Debridement (cm) - Width 3.5 3.6 -Post Debridement (cm) - Depth 0.5 0.5 -Total Square (Post) (cm) 9.45 10.08 -Area of Debridement (cm) - Length 2.7 2.8 -Area of Debridement (cm) - Width 3.5 3.6 -Total Square (Area) (cm) 9.45 10.08 -Tunneling No No -Undermining/Tunneling No No -Circular Undermining No No -Wound/Ulcer Outcome Not Healed Not Healed -Ulcer Cleansing Rinsed/ Rinsed/ Irrigated with Irrigated with Saline Saline -Bleeding Controlled with Pressure Pressure -Treatment Response Procedure Procedure Tolerated Well Tolerated Well -Debridement - Subq, 1st 20sq cm Yes Yes Pain Scale: 0-10 Numeric Is Patient Pain Free? Yes Yes - Nurse 3 - General Ulcer D/C NN Start: 12/29/23 14:07 Freq: Status: Active Protocol: Activity Type Activity Date Activity User E-sign Co-sign Detail Recorded Client Recorded Date Recorded By Document 12/29/23 14:40 KW wound center 12/29/23 14:41 KW Document 01/05/24 15:57 wound center 01/05/24 15:57 KW 12/29/23 01/05/24 14:40 15:57 Wound Care Center Nurse 3 #2inferior medial stump -Ulcer Cleansing Rinsed/ Irrigated with Saline -Primary Dressing Applied Promogran Promogran Geovanna Matter Geovanna Matter -Primary Dressing Covered/Secured with Dry Gauze & Dry Gauze & Roll Gauze, Roll Gauze, Secured with Secured with Tape Tape -Promogran Geovanna Matter 1 1 #1 RT superior stump -Primary Dressing Covered/Secured with Dry Gauze Dry Gauze Pain Scale: 0-10 Numeric Is Patient Pain Free? Yes Yes WC - Visit Discharge Discharge Condition Stable Stable Ambulatory Status Wheelchair Wheelchair Transportation Private Auto Private Auto Accompanied by Medication Reconcilliation completed & No No provided to patient/care provider Clinical Summary of Care Provided Yes Yes Charges/Coding Procedures Integumentary [id number]: [id number] Padmini subq tissue 20 sq cm/< Assessment/Plan Assessment/Plan (1) Surgical wound dehiscence: CODE(S): T81.31XA - Disruption of external operation (surgical) wound, not elsewhere classified, initial encounter QUALIFIERS: Encounter type: subsequent encounter Qualified Code(s): T81.31XD - Disruption of external operation (surgical) wound, not elsewhere classified, subsequent encounter (2) History of right below knee amputation: CODE(S): Z89.511 - Acquired absence of right leg below knee (3) Morbid obesity with BMI of 50.0-59.9, adult: CODE(S): E66.01 - Morbid (severe) obesity due to excess calories; Z68.43 - Body mass index [BMI] 50.0-59.9, adult (4) Diabetes mellitus, type 2: CODE(S): E11.9 - Type 2 diabetes mellitus without complications QUALIFIERS: Chronic kidney disease stage: stage 3 (moderate) Chronic kidney disease stage 3 subtype: stage 3a (GFR 45-59) Diabetes mellitus complication detail: with chronic kidney disease Diabetes mellitus complication status: with kidney complications Diabetes mellitus usp insulin use: with lobsterman use Qualified Code(s): E11.22 - Type 2 diabetes mellitus with diabetic chronic kidney disease; N18.31 - Chronic kidney disease, stage 3a; Z79.4 - terminal make up operator (current) use of insulin (5) Below knee amputation: CODE(S): S88.119A - 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, unspecified lower leg, initial encounter QUALIFIERS: Encounter type: sequela Laterality: bilateral Qualified Code(s): S88.111S - 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, right lower leg, sequela; S88.112S - 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, left lower leg, sequela (6) Hypothyroid: CODE(S): E03.9 - Hypothyroidism, unspecified QUALIFIERS: Hypothyroidism type: acquired Qualified Code(s): E03.9 - Hypothyroidism, unspecified (7) Benign essential HTN: CODE(S): I10 - Essential (primary) hypertension (8) Breast cancer in female: CODE(S): C50.919 - Malignant neoplasm of unspecified site of unspecified female breast QUALIFIERS: Breast location: unspecified site of breast Estrogen receptor status: positive Laterality: right Qualified Code(s): C50.911 - Malignant neoplasm of unspecified site of right female breast; Z17.0 - Estrogen receptor positive status [ER+] (9) History of kidney stones: CODE(S): Z87.442 - Personal history of urinary calculi (10) Physical debility: CODE(S): R53.81 - Other malaise (11) Hx of supraventricular tachycardia: CODE(S): Z86.79 - Personal history of other diseases of the circulatory system (12) Hyperlipidemia: CODE(S): E78.5 - Hyperlipidemia, unspecified (13) GERD (gastroesophageal reflux disease): CODE(S): K21.9 - Gastro-esophageal reflux disease without esophagitis (14) Pulmonary hypertension: CODE(S): I27.20 - Pulmonary hypertension, unspecified (15) Chronic renal failure, stage 3 (moderate): CODE(S): N18.30 - Chronic kidney disease, stage 3 unspecified (16) Diverticulosis: CODE(S): K57.90 - Diverticulosis of intestine, part unspecified, without perforation or abscess without bleeding (17) Rheumatoid arthritis: CODE(S): M06.9 - Rheumatoid arthritis, unspecified (18) History of endometrial cancer: CODE(S): Z85.42 - Personal history of malignant neoplasm of other parts of uterus (19) History of total abdominal hysterectomy and bilateral salpingo-oophorectomy: CODE(S): Z90.710 - Acquired absence of both cervix and uterus; Z90.722 - Acquired absence of ovaries, bilateral; Z90.79 - Acquired absence of other genital organ(s) (20) History of cardiac radiofrequency ablation: CODE(S): Z98.890 - Other specified postprocedural states (21) History of carpal tunnel release: CODE(S): Z98.890 - Other specified postprocedural states (22) History of tonsillectomy: CODE(S): Z90.89 - Acquired absence of other organs (23) Right leg swelling: CODE(S): M79.89 - Other specified soft tissue disorders PLAN: Plan This is a 63-year-old female with multiple pre-existing medical problems, who presented with a 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 She underwent right below-knee amputation on October 19, 2023 at [facility]. Shortly following the removal of her surgical luisana, several weeks following surgery, she developed a surgical wound dehiscence. She was referred to the [facility] for definitive management. The patient has been advised to elevate her right lower extremity to heart level is much as possible. She admits to sleeping on a flat mattress at night. Elevation will help to minimize swelling. She has been encouraged to continue using a compression wrap and stump bi solutions architect at the site, and to collaborate with her prosthetists at [facility] [employer] to maintain compression to the site. These measures are to diminish the swelling and edema. Optimizing nutritional intake and glycemic control has also been discussed. A nutritional supplement, such as Glucerna, would be appropriate. We are to continue the use of Geovanna topically to the dehiscent surgical wound. The patient and her have been instructed in the appropriate means of application. Geovanna is to be applied on a daily basis. Wound cultures were obtained last week, and are positive for Enterobacter cloacae, Staphylococcus epidermidis, Enterococcus faecalis, Staphylococcus lugdunensis, anaerobic cocci, and Bacteroides fragilis. The patient has been placed on Bactrim double strength twice daily orally for 10 days, and amoxicillin 500 mg p.o. orally twice daily for 10 days. In the short time that the patient has been taking the oral antibiotics, there appears to be improvement. The patient is to follow-up in 1 week for reassessment. We may consider the use of a skin substitute or Wound VAC in the future. The patient's right breast surgery, by Dr. Knapp, has been postponed at least until the patient's infected wound demonstrates improvement. The decision to proceed will be determined between the patient and her surgeon. Total time: 26 minutes
[2024-01-12 13:17] VITALS: BP 133/42; PULSE 78; RESP 18; TEMP 35.8; BMI 54.1
--- NOTE | 2024-01-12 15:20 | HP.PCM_ITS ---
History of Present Illness Date of Service: 01/12/24 Chief Complaint: Surgical wound dehiscence of the right below-knee amputation stump incision History of Wound: This is a 63-year-old morbidly obese female with multiple pre- existing medical conditions. She is a longstanding diabetic and has been poorly controlled. She suffers from diabetic peripheral neuropathy. She developed a right Charcot foot deformity, with collapse of her right arch. Her condition resulted in a right below-knee amputation which was performed at [facility] by Dr. Narayan on October 19, 2023. The patient had a relatively uncomplicated postoperative course. She was transferred to the [facility] rehabilitation unit, where she continued to convalesce for several weeks. Several weeks postoperatively, Dr. Damon's staff removed the patient's surgical luisana, and the patient subsequently developed a dehiscence. She was referred to the [facility] for management of her right below-knee amputation stump incisional dehiscence. The patient had been using Neosporin and gauze topically. She had also been using a Coban wrap and has been fitted with a stump marine habitat resource specialist by [employer]. The patient's multiple pre-existing medical conditions are listed elsewhere. Of note, she underwent right breast needle biopsy on November 26, 2023, which was indicative of invasive ductal carcinoma. She is under the care of other providers for management of this recent diagnosis, including her surgeon, Dr. Knapp. Laboratory results have been obtained dated December 03, 2023, with results as follows: Sodium 139, potassium 4.0, chloride 106, BUN 21, creatinine 1.21, gl ucose 120, calcium 9.1, total bilirubin 0.60, AST 23, ALT 29, alkaline phosphatase 103, total protein 7.1, albumin 3.7. [facility] Medical History Non-pressure chronic ulcer of right calf with fat layer exposed Wears glasses Post-menopausal Cancer Anxiety Open wound Thyroid disease Insulin dependent diabetes mellitus Uses wheelchair Fatty liver High cholesterol Dietary restriction Non-smoker History of edema History of echocardiogram History of stress test Cardiology follow-up encounter Surgical wound dehiscence Right leg swelling History of endometrial cancer Rheumatoid arthritis Diverticulosis Chronic renal failure, stage 3 (moderate) Pulmonary hypertension GERD (gastroesophageal reflux disease) Hyperlipidemia History of kidney stones Breast cancer in female Morbid obesity with BMI of 50.0-59.9, adult Hydronephrosis Ureteral calculus Charcot ankle Diabetic neuropathy Morbid obesity with BMI of 50.0-59.9, adult Diverticulosis Diabetes mellitus, type 2 Chronic renal failure (CRF), stage 3a Anemia Rheumatoid arthritis Chronic pain CPAP (continuous positive airway pressure) dependence Pulmonary hypertension BRITT (obstructive sleep apnea) Thyromegaly Hx of supraventricular tachycardia Nephrolithiasis Rosacea Fatty liver External hemorrhoid GERD without esophagitis Benign essential HTN Bilateral carpal tunnel syndrome Hyperlipidemia Low vitamin B12 level Multinodular goiter Tubular adenoma Adenocarcinoma of endometrium Home Medications ?Medication ?Instructions ?Recorded ?Last Taken ?Type aspirin 81 mg tablet,delayed 81 mg PO DAILY Heart health 01/11/16 12/22/23 History release cetirizine 10 mg capsule 10 mg PO DAILY Allergies 01/11/16 Unknown History metoprolol succinate 100 mg 100 mg PO DAILY BP 01/11/16 07/03/17 History tablet,extended release 24 hr multivitamin 1 ea PO DAILY Supplement 01/11/16 Unknown History omeprazole 40 mg capsule,delayed 40 mg PO DAILY GERD 01/11/16 07/03/17 History release simvastatin 20 mg tablet 20 mg PO QHS Cholestrol 01/11/16 Unknown History cyanocobalamin (vitamin B-12) 1,000 mcg PO DAILY Supplement 07/02/17 Unknown History 1,000 mcg sublingual tablet hydroxychloroquine 200 mg tablet 200 mg PO BID Platelets 04/28/18 Unknown History (Plaquenil) pregabalin 150 mg capsule (Lyrica) 150 mg PO QHS Nerve pain 06/14/18 Unknown History ferrous sulfate 325 mg (65 mg 325 mg PO DAILY supplement 04/25/20 Unknown History iron) tablet (Feosol) allopurinol 100 mg tablet 100 mg PO DAILY #30 tabs 11/18/23 Unknown Rx ascorbic acid (vitamin C) 500 mg 1,000 mg (2 x 500 mg) PO DAILY #30 11/18/23 Unknown Rx tablet tabs calcium carbonate (Oyster Shell 500 mg PO BREAKFAST #30 tabs 11/18/23 Unknown Rx Calcium 500) insulin lispro 100 unit/mL 3 unit (0.03 mL) subcut TID PRN 11/18/23 Unknown Rx subcutaneous pen elevated BS #15 mL insulin regular hum U-500 conc 500 See Rx Instructions .Route 11/18/23 Unknown Rx unit/mL(3 mL) subcut pen .COMPLEX Blood sugar 30 days #5 pens pregabalin 100 mg capsule (Lyrica) 100 mg PO BID #60 caps 11/19/23 Unknown Rx blood sugar diagnostic (OneTouch #100 ea 12/03/23 Unknown Rx Ultra Test strips) blood-glucose sensor (Dexcom G6 #9 ea 12/03/23 Unknown Rx Sensor device) blood-glucose transmitter (Dexcom #1 ea 12/03/23 Unknown Rx G6 Transmitter device) bupropion HCl 300 mg 24 hr tablet, 300 mg PO DAILY #90 tabs 12/03/23 Unknown Rx extended release levothyroxine 300 mcg tablet 300 mcg PO DAILY #30 tabs 12/03/23 Unknown Rx losartan 50 mg tablet (Cozaar) 50 mg PO DAILY #90 tabs 12/03/23 Unknown Rx OneTouch Delica Plus Lancet 33 #100 ea 12/04/23 Unknown Rx gauge (lancets) blood sugar diagnostic (OneTouch #100 ea 12/04/23 Unknown Rx Ultra Test strips) buspirone 5 mg tablet 5 mg PO TID #90 tabs 12/11/23 Unknown Rx alprazolam 0.5 mg tablet (Xanax) 0.5 mg PO TID PRN PRN panic attack 12/25/23 Unknown History fiber 1 cap PO DAILY 12/25/23 Unknown History oxycodone 5 mg capsule 5 mg PO Q6H PRN PRN pain 12/25/23 Unknown History Allergy/AdvReac Type Severity Reaction Status Date / Time No Known Allergies Allergy Verified 12/25/23 08:20 Family History Mother Ovarian cancer Hypertension Arthritis Uterine cancer Fibrocystic disease of breast Hypothyroid Father , Age 86-CHF Hypertension Arthritis Diverticulitis of colon Depression CAD (coronary artery disease) Sister Hypertension Depression CVA (cerebral vascular accident) Fibrocystic disease of breast Diabetes Bleeding disorder Portal hypertension Surgical History Hx of cystoscopy Hx of total thyroidectomy History of tonsillectomy History of carpal tunnel release History of cardiac radiofrequency ablation History of total abdominal hysterectomy and bilateral salpingo-oophorectomy History of below-knee amputation S/P cystoscopy with ureteral stent placement History of right below knee amputation History of hand surgery H/O cardiac radiofrequency ablation (02/15/13) History of right and left heart catheterization (07/03/17) H/O colonoscopy H/O abdominal hysterectomy H/O carpal tunnel repair Previous section History of tonsillectomy Hx of cholecystectomy Surgical menopause Social History Smoking Status: Never smoker second hand exposure: No alcohol intake: never substance use type: does not use caffeine: No Vital Signs Vital Signs Vital Signs: 01/12/24 13:17 Temperature 96.4 F L Temperature Source Temporal Pulse Rate 78 Respiratory Rate 18 Blood Pressure 133/42 H Blood Pressure Mean 72 Blood Pressure Source Monitor Blood Pressure Position Semi-Fowlers Blood Pressure Location Left Arm Weight Weight: 335 lb Body Mass Index (BMI) 54.1 Physical Exam Narrative ECOG 2, seen in a wheelchair Const alert, oriented x3 and no apparent distress Constitutional Narrative: The patient is morbidly obese. General Appearance: cooperative and comfortable Nutritional Appearance: morbidly obese HEENT normocephalic and head/scalp atraumatic Face and Sinus: normal facial exam External Ear: external ears normal Mouth: oral and palatal mucosa normal Eyes General Eye: normal appearance of both eyes Neck full ROM Resp normal respiratory effort, normal air movement, no retractions and no use of accessory muscles Effort and Inspection: able to speak in complete sentences Cardio Jugular Venous Distention: Negative for JVD GI soft to palpation and non-tender Extremity Extremity Narrative: Right lower extremity below-knee amputation, wound dressed left uninterrupted. Skin Wound Narrative: The dehiscence of the right below-knee amputation stump persists. There are 2 areas of involvement. The erythema and cellulitic changes which were noted about the patient's dehiscent wound 2 weeks ago have now resolved. The wounds are pink and healthy in appearance, with a moderate amount of bioburden and nonviable tissue. Central to the larger wound, there is a small area of depression, which is deeper than the surrounding wound. The second wound site, much smaller than the other, also demonstrates a moderate amount of bioburden. Dimensions of each site are documented elsewhere. The dehiscent wounds appear to be slightly smaller in size, and the periwound cellulitic changes have resolved. Only slight swelling is noted in the patient's amputation stump. Neuro oriented x3, CN's II-XII intact bilaterally, moves all extremities and no focal motor deficits Sensorium / Orientation: awake, alert, oriented to person, oriented to place and oriented to time Coordination / Balance: [id number] test normal Speech: speech normal Gait (Neuro): unable to assess gait Psych mental status grossly normal Debridement Note Debridement Note Wound debrided: Dehiscent right below-knee amputation stump incision Laterality: Right Type of Debridement: Excisional debridement Anesthesia Used: 5% Lidocaine Gel Depth: Down to and including healthy tissue and in the subcutaneous layer Percentage of wound debrided: 100 Instrument Used: 5mm curette Tissue Removed: Bioburden and nonviable tissue Severity: Fat Layer Exposed Amount of bleeding with debridement: Mild Bleeding Controlled with: Compression and gauze Patient tolerated procedure: Patient tolerated procedure well Post-Debridement Measurements and Additional Note: Post-Debridement Measurements/Treatment - Nurse 1 - General Ulcer Assessment Start: 12/29/23 14:07 Freq: Status: Active Protocol: MATT Activity Type Activity Date Activity User E-sign Co-sign Detail Recorded Client Recorded Date Recorded By Document 12/29/23 14:08 wound center 12/29/23 14:11 RB Document 01/05/24 15:12 RB wound 01/05/24 15:16 RB Document 01/12/24 13:17 RB wound 01/12/24 13:19 RB 12/29/23 01/05/24 01/12/24 14:08 15:12 13:17 - Today's Visit Information Type of service Follow-up Visit Follow-up Visit Follow-up Visit (Physician/NEEDLE PUNCH MACHINE OPERATOR HELPER (Physician/NEEDLE PUNCH MACHINE OPERATOR HELPER (Physician/NEEDLE PUNCH MACHINE OPERATOR HELPER ) ) ) Arrival Mode Ambulatory Walker, Wheelchair Wheelchair Transfer Assistance None None None Patient Identification Verified (Name & Yes Yes Yes ) Patient Requires Transmission-Based No No Precautions Height and Weight Body Mass Index (BMI) 54.1 54.1 54.1 BMI Classification Obese Obese Obese Vital Signs Temperature (97.8 F-99.1 F) 97.7 F L 97 F L 96.4 F L Temperature Source Temporal Temporal Temporal Pulse Rate (60-100) 71 73 78 Pulse Location Monitor Monitor Monitor Respiratory Rate (12-18) 18 18 18 Respiratory rate source Observation Observation Observation Blood Pressure (90/60-120/80) 115/52 L 150/65 H 133/42 H Blood Pressure Mean 73 93 72 Source Monitor Monitor Monitor Position Semi-Fowlers Semi-Fowlers Semi-Fowlers Blood Pressure Location Left Arm Left Arm Left Arm History Since Last Visit- (Skip if this is Patient's initial visit) Have you changed medications since your No No No last visit? Any new allergies or adverse reactions No No No Had a fall/change in ADL's that may No No No increase risk of falls Signs or symptoms of abuse and/or No No No neglect since last visit Have you been in the hospital since your No No No last visit? Has dressing in place as prescribed Yes Yes Yes Has compression in place as prescribed Yes Yes No Has offloadiing in place as prescribed No No No Experienced any changes in pain level or No No No management Pain Scale: 0-10 Numeric Is Patient Pain Free? Yes No Yes right stump -Description Aching -Intensity 4 -Duration (hours) Chronic -Pain Behavior Guarding -Pain Aggravating Factors Changing Position, Exercise/ Activity -Alleviating Factors/Interventions Medication -Effectiveness of Alleviating Factor/ Moderately Intervention effective WC - Nurse 1 - General Ulcer Measurement Start: 12/29/23 14:07 Freq: Status: Active Protocol: Activity Type Activity Date Activity User E-sign Co-sign Detail Recorded Client Recorded Date Recorded By Document 12/29/23 14:08 wound center 12/29/23 14:11 RB Document 01/05/24 15:12 RB wound 01/05/24 15:16 RB Document 01/12/24 13:17 RB wound 01/12/24 13:19 RB 12/29/23 01/05/24 01/12/24 14:08 15:12 13:17 Wound Center Nurse 1 #2inferior medial stump -Combined with other wound No No No -Current Size (cm) - Length 0.3 0.1 0.1 -Current Size (cm) - Width 0.4 0.1 0.1 -Current Size (cm) - Depth 0.1 0.1 0.1 -Total Square Cm 0.12 0.01 0.01 -Tunneling No No No -Undermining/Tunneling No No No -Circular Undermining No No No -Exudate Amt Medium Small Medium -Exudate Type Serosanguineous Serosanguineous Serosanguineous -Wound Margin Thickened & Distinct, Distinct, Rolled Under Outline Outline Attached Attached -Granulation Amt Medium (34-66%) Medium (34-66%) Medium (34-66%) -Granulation Quality Arnold Line Arnold Line Arnold Line -Slough/Fibrin Yes Yes Yes -Necrosis Amt Medium (34-66%) Large (67-100%) Medium (34-66%) -Necrotic Tissue Type Adherent Slough Adherent Slough Adherent Slough -Structure Exposed N/A N/A N/A -Texture (Fadumo-wound Skin Appearance) Assessed Assessed Assessed, Scarring -Moisture (Fadumo-wound Skin Appearance) Assessed Assessed Assessed -Color (Fadumo-wound Skin Appearance) Assessed Assessed Assessed -Temperature (Fadumo-wound Skin No Abnormality No Abnormality No Abnormality Appearance) (Pt Warm) (Pt Warm) (Pt Warm) -Tenderness on Palpation (Fadumo-wound No No No Skin Appearance) -Ulcer Cleansing Wound Cleanser Wound Cleanser Wound Cleanser -Foul Odor after Cleansing No No No -Anesthetic Used 5% Lidocaine 5% Lidocaine 5% Lidocaine Gel Gel Gel #1 RT superior stump -Combined with other wound No No No -Current Size (cm) - Length 2.5 2.5 2.7 -Current Size (cm) - Width 4 3.7 3.4 -Current Size (cm) - Depth 0.2 0.2 0.3 -Total Square Cm 10.0 9.25 9.18 -Tunneling No No No -Undermining/Tunneling No No No -Circular Undermining No No No -Exudate Amt Medium Large Large -Exudate Type Serosanguineous Serosanguineous Serosanguineous -Wound Margin Thickened & Thickened & Distinct, Rolled Under Rolled Under Outline Attached -Granulation Amt Medium (34-66%) Medium (34-66%) Large (67-100%) -Granulation Quality Arnold Line Arnold Line Arnold Line,Red -Slough/Fibrin Yes Yes Yes -Necrosis Amt Medium (34-66%) Medium (34-66%) Medium (34-66%) -Necrotic Tissue Type Adherent Slough Adherent Slough Adherent Slough -Structure Exposed N/A N/A N/A -Texture (Fadumo-wound Skin Appearance) Assessed, Assessed Scarring Scarring -Moisture (Fadumo-wound Skin Appearance) Assessed Assessed Assessed -Color (Fadumo-wound Skin Appearance) Assessed Assessed Assessed -Temperature (Fadumo-wound Skin No Abnormality No Abnormality No Abnormality Appearance) (Pt Warm) (Pt Warm) (Pt Warm) -Tenderness on Palpation (Fadumo-wound No No No Skin Appearance) -Ulcer Cleansing Wound Cleanser Wound Cleanser Wound Cleanser -Foul Odor after Cleansing No No No -Anesthetic Used 5% Lidocaine 5% Lidocaine 5% Lidocaine Gel Gel Gel WC - Nurse 2 - General Ulcer CM Notes Start: 12/29/23 14:07 Freq: Status: Active Protocol: Activity Type Activity Date Activity User E-sign Co-sign Detail Recorded Client Recorded Date Recorded By Document 12/29/23 14:42 DS [id number] 12/29/23 15:19 DS Document 01/05/24 15:39 DS 1 01/05/24 15:50 DS Document 01/12/24 13:30 DS 1 01/12/24 13:39 DS 12/29/23 01/05/24 01/12/24 14:42 15:39 13:30 Wound Center Nurse 2 #2inferior medial stump -Time 14:42 15:41 13:30 -Correct Patient Yes Yes Yes -Correct Side, Site, Position Yes Yes Yes -Correct Procedure Yes Yes Yes -Procedure Performed Yes Yes Yes -Type of Procedure Debridement Debridement Debridement -Clinical Debridement Subcutaneous Subcutaneous Subcutaneous -Tissue Removed Subcutaneous Subcutaneous Subcutaneous -Post Debridement (cm) - Length 0.5 0.8 0.5 -Post Debridement (cm) - Width 0.5 0.5 0.5 -Post Debridement (cm) - Depth 0.1 0.1 0.1 -Total Square (Post) (cm) 0.25 0.40 0.25 -Area of Debridement (cm) - Length 0.5 0.8 0.5 -Area of Debridement (cm) - Width 0.5 0.5 0.5 -Total Square (Area) (cm) 0.25 0.40 0.25 -Tunneling No No No -Undermining/Tunneling No No No -Circular Undermining No No No -Wound/Ulcer Outcome Not Healed Not Healed Not Healed -Ulcer Cleansing Rinsed/ Rinsed/ Rinsed/ Irrigated with Irrigated with Irrigated with Saline Saline Saline -Bleeding Controlled with Pressure Pressure Pressure -Treatment Response Procedure Procedure Procedure Tolerated Well Tolerated Well Tolerated Well -Debridement - Subq, 1st 20sq cm No No No #1 RT superior stump -Time 14:42 15:42 13:31 -Correct Patient Yes Yes Yes -Correct Side, Site, Position Yes Yes Yes -Correct Procedure Yes Yes Yes -Procedure Performed Yes Yes Yes -Type of Procedure Debridement Debridement Debridement -Clinical Debridement Subcutaneous Subcutaneous Subcutaneous -Tissue Removed Subcutaneous Subcutaneous Subcutaneous -Post Debridement (cm) - Length 2.7 2.8 2.9 -Post Debridement (cm) - Width 3.5 3.6 3.8 -Post Debridement (cm) - Depth 0.5 0.5 0.5 -Total Square (Post) (cm) 9.45 10.08 11.02 -Area of Debridement (cm) - Length 2.7 2.8 2.9 -Area of Debridement (cm) - Width 3.5 3.6 3.8 -Total Square (Area) (cm) 9.45 10.08 11.02 -Tunneling No No No -Undermining/Tunneling No No No -Circular Undermining No No No -Wound/Ulcer Outcome Not Healed Not Healed Not Healed -Ulcer Cleansing Rinsed/ Rinsed/ Rinsed/ Irrigated with Irrigated with Irrigated with Saline Saline Saline -Bleeding Controlled with Pressure Pressure Pressure -Treatment Response Procedure Procedure Procedure Tolerated Well Tolerated Well Tolerated Well -Debridement - Subq, 1st 20sq cm Yes Yes Yes Pain Scale: 0-10 Numeric Is Patient Pain Free? Yes Yes Yes - Nurse 3 - General Ulcer D/C NN Start: 12/29/23 14:07 Freq: Status: Active Protocol: Activity Type Activity Date Activity User E-sign Co-sign Detail Recorded Client Recorded Date Recorded By Document 12/29/23 14:40 wound center 12/29/23 14:41 Document 01/05/24 15:57 wound center 01/05/24 15:57 Document 01/12/24 13:53 [id number] 01/12/24 13:55 12/29/23 01/05/24 01/12/24 14:40 15:57 13:53 Wound Care Center Nurse 3 #2inferior medial stump -Ulcer Cleansing Rinsed/ Rinsed/ Irrigated with Irrigated with Saline Saline -Foul Odor after Cleansing No -Primary Dressing Applied Promogran Promogran Promogran Geovanna Matter Geovanna Matter Geovanna Matter -Primary Dressing Covered/Secured with Dry Gauze & Dry Gauze & Dry Gauze & Roll Gauze, Roll Gauze, Roll Gauze, Secured with Secured with Secured with Tape Tape Tape -Promogran Geovanna Matter 1 1 1 #1 RT superior stump -Ulcer Cleansing Rinsed/ Irrigated with Saline -Foul Odor after Cleansing No -Primary Dressing Applied Promogran Geovanna Matter -Primary Dressing Covered/Secured with Dry Gauze Dry Gauze Dry Gauze, Secured with Tape -Promogran Geovanna Matter 0 Pain Scale: 0-10 Numeric Is Patient Pain Free? Yes Yes Yes WC - Visit Discharge Discharge Condition Stable Stable Stable Ambulatory Status Wheelchair Wheelchair Ambulatory, Wheelchair Transportation Private Auto Private Auto Private Auto Accompanied by Medication Reconcilliation completed & No No Yes provided to patient/care provider Clinical Summary of Care Provided Yes Yes Yes Assessment/Plan Assessment/Plan (1) Non-pressure chronic ulcer of right calf with fat layer exposed: CODE(S): L97.212 - Non-pressure chronic ulcer of right calf with fat layer exposed (2) Surgical wound dehiscence: CODE(S): T81.31XA - Disruption of external operation (surgical) wound, not elsewhere classified, initial encounter QUALIFIERS: Encounter type: subsequent encounter Qualified Code(s): T81.31XD - Disruption of external operation (surgical) wound, not elsewhere classified, subsequent encounter (3) History of right below knee amputation: CODE(S): Z89.511 - Acquired absence of right leg below knee (4) Morbid obesity with BMI of 50.0-59.9, adult: CODE(S): E66.01 - Morbid (severe) obesity due to excess calories; Z68.43 - Body mass index [BMI] 50.0-59.9, adult (5) Diabetes mellitus, type 2: CODE(S): E11.9 - Type 2 diabetes mellitus without complications QUALIFIERS: Diabetes mellitus senior living insulin use: with local intermodal truck driver use Diabetes mellitus complication status: with kidney complications Diabetes mellitus complication detail: with chronic kidney disease Chronic kidney disease stage: stage 3 (moderate) Chronic kidney disease stage 3 subtype: stage 3a (GFR 45-59) Qualified Code(s): E11.22 - Type 2 diabetes mellitus with diabetic chronic kidney disease; N18.31 - Chronic kidney disease, stage 3a; Z79.4 - 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 termite (current) use of insulin (6) Below knee amputation: CODE(S): S88.119A - 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, unspecified lower leg, initial encounter QUALIFIERS: Encounter type: sequela Laterality: bilateral Qualified Code(s): S88.111S - 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, right lower leg, sequela; S88.112S - 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, left lower leg, sequela (7) Hypothyroid: CODE(S): E03.9 - Hypothyroidism, unspecified QUALIFIERS: Hypothyroidism type: acquired Qualified Code(s): E03.9 - Hypothyroidism, unspecified (8) Benign essential HTN: CODE(S): I10 - Essential (primary) hypertension (9) Breast cancer in female: CODE(S): C50.919 - Malignant neoplasm of unspecified site of unspecified female breast QUALIFIERS: Breast location: unspecified site of breast Estrogen receptor status: positive Laterality: right Qualified Code(s): C50.911 - Malignant neoplasm of unspecified site of right female breast; Z17.0 - Estrogen receptor positive status [ER+] (10) History of kidney stones: CODE(S): Z87.442 - Personal history of urinary calculi (11) Physical debility: CODE(S): R53.81 - Other malaise (12) Hx of supraventricular tachycardia: CODE(S): Z86.79 - Personal history of other diseases of the circulatory system (13) Hyperlipidemia: CODE(S): E78.5 - Hyperlipidemia, unspecified (14) GERD (gastroesophageal reflux disease): CODE(S): K21.9 - Gastro-esophageal reflux disease without esophagitis (15) Pulmonary hypertension: CODE(S): I27.20 - Pulmonary hypertension, unspecified (16) Chronic renal failure, stage 3 (moderate): CODE(S): N18.30 - Chronic kidney disease, stage 3 unspecified (17) Diverticulosis: CODE(S): K57.90 - Diverticulosis of intestine, part unspecified, without perforation or abscess without bleeding (18) Rheumatoid arthritis: CODE(S): M06.9 - Rheumatoid arthritis, unspecified (19) History of endometrial cancer: CODE(S): Z85.42 - Personal history of malignant neoplasm of other parts of uterus (20) History of total abdominal hysterectomy and bilateral salpingo- oophorectomy: CODE(S): Z90.710 - Acquired absence of both cervix and uterus; Z90.722 - Acquired absence of ovaries, bilateral; Z90.79 - Acquired absence of other genital organ(s) (21) History of cardiac radiofrequency ablation: CODE(S): Z98.890 - Other specified postprocedural states (22) History of carpal tunnel release: CODE(S): Z98.890 - Other specified postprocedural states (23) History of tonsillectomy: CODE(S): Z90.89 - Acquired absence of other organs (24) Right leg swelling: CODE(S): M79.89 - Other specified soft tissue disorders PLAN: Plan This is a 63-year-old female with multiple pre-existing medical problems, who presented with a 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 She underwent right below-knee amputation on October 19, 2023 at [facility]. Shortly following the removal of her surgical luisana, several weeks following surgery, she developed a surgical wound dehiscence. She was referred to the [facility] for definitive management. 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 The patient has been advised to elevate her right lower extremity to heart level as much as possible. She admits to sleeping on a flat mattress at night. Elevation will help to minimize swelling. She has been encouraged to continue using a compression wrap and stump marine habitat resource specialist at the site, and to collaborate with her prosthetists at [facility] to maintain compression to the site. These measures are to diminish the swelling and edema. Optimizing nutritional intake and glycemic control has also been discussed. A nutritional supplement, such as Glucerna, would be appropriate. We are to continue the use of Geovanna topically to the dehiscent surgical wound. The patient and her have been instructed in the appropriate means of application. Geovanna is to be applied on a daily basis. Wound cultures were obtained several weeks ago, and were positive for Enterobacter cloacae, Staphylococcus epidermidis, Enterococcus faecalis, Staphylococcus lugdunensis, anaerobic cocci, and Bacteroides fragilis. The patient was placed on Bactrim double strength twice daily orally for 10 days, and amoxicillin 500 mg p.o. orally twice daily for 10 days. The courses of antibiotics were completed yesterday. As a result of the antibiotic treatment, there appears to be significant improvement. The overt signs of infection have resolved, and the wound appears pink and healthy with evidence of active granulation tissue. The patient is to follow-up in 1 week for reassessment. We are to seek preauthorization for the use of negative pressure wound therapy. The nature of negative pressure wound therapy has been explained to the patient and her . This will be implemented once approved. The patient's right breast surgery, by Dr. Knapp, has been postponed at the discretion of her surgeon. In the interim, the patient indicates that her oncologist may consider implementing hormonal therapy. The decision to proceed with breast surgery will be deferred to Dr. Knapp. Total time: 25 minutes
[2024-01-19 13:12] VITALS: BP 126/54; PULSE 78; RESP 18; TEMP 35.8; BMI 54.1
--- NOTE | 2024-01-19 16:10 | PCM.WC.HP ---
History of Present Illness Date of Service: 01/19/24 Chief Complaint: Surgical wound dehiscence of the right below-knee amputation stump incision History of Wound: This is a 63-year-old morbidly obese female with multiple pre-existing medical conditions. She is a longstanding diabetic and has been poorly controlled. She suffers from diabetic peripheral neuropathy. She developed a right Charcot foot deformity, with collapse of her right arch. Her condition resulted in a right below-knee amputation which was performed at [facility] by Dr. Narayan on October 19, 2023. The patient had a relatively uncomplicated postoperative course. She was transferred to the [facility] rehabilitation unit, where she continued to convalesce for several weeks. Several weeks postoperatively, Dr. Damon's staff removed the patient's surgical luisana, and the patient subsequently developed a dehiscence. She was referred to the [facility] for management of her right below-knee amputation stump incisional dehiscence. The patient had been using Neosporin and gauze topically. She had also been using a Coban wrap and has been fitted with a stump electrician technician by [employer]. The patient's multiple pre-existing medical conditions are listed elsewhere. Of note, she underwent right breast needle biopsy on November 26, 2023, which was indicative of invasive ductal carcinoma. She is under the care of other providers for management of this recent diagnosis, including her surgeon, Dr. Knapp. [facility] Medical History (Updated 01/19/24 @ 16:[address] Malvin Alfonso MD) Tinea cruris Non-pressure chronic ulcer of right calf with fat layer exposed Wears glasses Post-menopausal Cancer Anxiety Open wound Thyroid disease Insulin dependent diabetes mellitus Uses wheelchair Fatty liver High cholesterol Dietary restriction Non-smoker History of edema History of echocardiogram History of stress test Cardiology follow-up encounter Surgical wound dehiscence Right leg swelling History of endometrial cancer Rheumatoid arthritis Diverticulosis Chronic renal failure, stage 3 (moderate) Pulmonary hypertension GERD (gastroesophageal reflux disease) Hyperlipidemia History of kidney stones Breast cancer in female Morbid obesity with BMI of 50.0-59.9, adult Hydronephrosis Ureteral calculus Charcot ankle Diabetic neuropathy Morbid obesity with BMI of 50.0-59.9, adult Diverticulosis Diabetes mellitus, type 2 Chronic renal failure (CRF), stage 3a Anemia Rheumatoid arthritis Chronic pain CPAP (continuous positive airway pressure) dependence Pulmonary hypertension BRITT (obstructive sleep apnea) Thyromegaly Hx of supraventricular tachycardia Nephrolithiasis Rosacea Fatty liver External hemorrhoid GERD without esophagitis Benign essential HTN Bilateral carpal tunnel syndrome Hyperlipidemia Low vitamin B12 level Multinodular goiter Tubular adenoma Adenocarcinoma of endometrium Home Medications ?Medication ?Instructions ?Recorded ?Last Taken ?Type aspirin 81 mg tablet,delayed 81 mg PO DAILY Heart health 01/11/16 12/22/23 History release cetirizine 10 mg capsule 10 mg PO DAILY Allergies 01/11/16 Unknown History metoprolol succinate 100 mg 100 mg PO DAILY BP 01/11/16 07/03/17 History tablet,extended release 24 hr multivitamin 1 ea PO DAILY Supplement 01/11/16 Unknown History omeprazole 40 mg capsule,delayed 40 mg PO DAILY GERD 01/11/16 07/03/17 History release simvastatin 20 mg tablet 20 mg PO QHS Cholestrol 01/11/16 Unknown History cyanocobalamin (vitamin B-12) 1,000 mcg PO DAILY Supplement 07/02/17 Unknown History 1,000 mcg sublingual tablet hydroxychloroquine 200 mg tablet 200 mg PO BID Platelets 04/28/18 Unknown History (Plaquenil) pregabalin 150 mg capsule (Lyrica) 150 mg PO QHS Nerve pain 06/14/18 Unknown History ferrous sulfate 325 mg (65 mg 325 mg PO DAILY supplement 04/25/20 Unknown History iron) tablet (Feosol) allopurinol 100 mg tablet 100 mg PO DAILY #30 tabs 11/18/23 Unknown Rx ascorbic acid (vitamin C) 500 mg 1,000 mg (2 x 500 mg) PO DAILY #30 11/18/23 Unknown Rx tablet tabs calcium carbonate (Oyster Shell 500 mg PO BREAKFAST #30 tabs 11/18/23 Unknown Rx Calcium 500) insulin lispro 100 unit/mL 3 unit (0.03 mL) subcut TID PRN 11/18/23 Unknown Rx subcutaneous pen elevated BS #15 mL insulin regular hum U-500 conc 500 See Rx Instructions .Route 11/18/23 Unknown Rx unit/mL(3 mL) subcut pen .COMPLEX Blood sugar 30 days #5 pens pregabalin 100 mg capsule (Lyrica) 100 mg PO BID #60 caps 11/19/23 Unknown Rx blood sugar diagnostic (OneTouch #100 ea 12/03/23 Unknown Rx Ultra Test strips) blood-glucose sensor (Dexcom G6 #9 ea 12/03/23 Unknown Rx Sensor device) blood-glucose transmitter (Dexcom #1 ea 12/03/23 Unknown Rx G6 Transmitter device) bupropion HCl 300 mg 24 hr tablet, 300 mg PO DAILY #90 tabs 12/03/23 Unknown Rx extended release levothyroxine 300 mcg tablet 300 mcg PO DAILY #30 tabs 12/03/23 Unknown Rx losartan 50 mg tablet (Cozaar) 50 mg PO DAILY #90 tabs 12/03/23 Unknown Rx OneTouch Delica Plus Lancet 33 #100 ea 12/04/23 Unknown Rx gauge (lancets) blood sugar diagnostic (OneTouch #100 ea 12/04/23 Unknown Rx Ultra Test strips) buspirone 5 mg tablet 5 mg PO TID #90 tabs 12/11/23 Unknown Rx alprazolam 0.5 mg tablet (Xanax) 0.5 mg PO TID PRN PRN panic attack 12/25/23 Unknown History fiber 1 cap PO DAILY 12/25/23 Unknown History oxycodone 5 mg capsule 5 mg PO Q6H PRN PRN pain 12/25/23 Unknown History anastrozole 1 mg tablet (Arimidex) 1 mg PO DAILY #90 tabs 01/14/24 Unknown Rx Allergy/AdvReac Type Severity Reaction Status Date / Time No Known Allergies Allergy Verified 01/14/24 12:10 Family History Mother Ovarian cancer Hypertension Arthritis Uterine cancer Fibrocystic disease of breast Hypothyroid Father , Age 86-CHF Hypertension Arthritis Diverticulitis of colon Depression CAD (coronary artery disease) Sister Hypertension Depression CVA (cerebral vascular accident) Fibrocystic disease of breast Diabetes Bleeding disorder Portal hypertension Surgical History Hx of cystoscopy Hx of total thyroidectomy History of tonsillectomy History of carpal tunnel release History of cardiac radiofrequency ablation History of total abdominal hysterectomy and bilateral salpingo-oophorectomy History of below-knee amputation S/P cystoscopy with ureteral stent placement History of right below knee amputation History of hand surgery H/O cardiac radiofrequency ablation (02/15/13) History of right and left heart catheterization (07/03/17) H/O colonoscopy H/O abdominal hysterectomy H/O carpal tunnel repair Previous section History of tonsillectomy Hx of cholecystectomy Surgical menopause Social History Smoking Status: Never smoker second hand exposure: No alcohol intake: never substance use type: does not use caffeine: No Vital Signs Vital Signs Vital Signs: 01/19/24 13:12 Temperature 96.4 F L Temperature Source Temporal Pulse Rate 78 Respiratory Rate 18 Blood Pressure 126/54 H Blood Pressure Mean 78 Blood Pressure Source Monitor Blood Pressure Position Semi-Fowlers Blood Pressure Location Left Arm Oxygen Delivery Method Room Air Weight Weight: 335 lb Body Mass Index (BMI) 54.1 Physical Exam Narrative ECOG 2, seen in a wheelchair Const alert, oriented x3 and no apparent distress Constitutional Narrative: The patient is morbidly obese. Her BMI is 54.1. General Appearance: cooperative, comfortable, well kempt and well developed Orientation / Consciousness: awake, oriented to person, oriented to place and oriented to time Exam Limitations: no limitations Nutritional Appearance: morbidly obese HEENT normocephalic and head/scalp atraumatic Head and Scalp: normal to inspection Nose: external nose normal External Ear: external ears normal Eyes EOMs intact bilaterally General Eye: normal appearance of both eyes Neck full ROM Resp normal respiratory effort, normal air movement, no retractions and no use of accessory muscles Effort and Inspection: able to speak in complete sentences Skin Skin Narrative: The patient has a severe erythematous rash in her perineal area and in the crural regions of the groin. Wound Narrative: A right below-knee amputation is noted. The dehiscent wound on the right BKA incision persists. There are 2 wounds, 1 of which is large, and the other of which is significantly smaller. Dimensions are documented elsewhere. Each of the wounds are pink and healthy in appearance, with a small amount of bioburden. There is no sign of infection or cellulitis. Centrally within the larger of the 2 wounds is a slight depression, which has been noted on serial visits. It does not extend beyond the adipose layer. Neuro oriented x3, CN's II-XII intact bilaterally, moves all extremities, no focal motor deficits and no sensory deficits noted Sensorium / Orientation: awake, alert, oriented to person, oriented to place and oriented to time Speech: speech normal Psych mental status grossly normal and thought process normal Attitude: calm and engaged Activity / Motor Behavior: appropriate eye contact Speech: normal speech Thought Process: normal thought process Attention / Concentration: attention grossly intact Debridement Note Debridement Note Wound debrided: Dehiscent right below-knee amputation stump incision Laterality: Right Type of Debridement: Excisional debridement Anesthesia Used: 5% Lidocaine Gel Depth: Down to and including healthy tissue and in the subcutaneous layer Percentage of wound debrided: 100 Instrument Used: 5mm curette Tissue Removed: Bioburden and nonviable tissue Severity: Fat Layer Exposed Amount of bleeding with debridement: Mild Bleeding Controlled with: Compression and gauze Patient tolerated procedure: Patient tolerated procedure well Post-Debridement Measurements and Additional Note: Post-Debridement Measurements/Treatment - Nurse 1 - General Ulcer Assessment Start: 12/29/23 14:07 Freq: Status: Active Protocol: MATT Activity Type Activity Date Activity User E-sign Co-sign Detail Recorded Client Recorded Date Recorded By Document 12/29/23 14:08 wound center 12/29/23 14:11 RB Document 01/05/24 15:12 RB wound 01/05/24 15:16 RB Document 01/12/24 13:17 RB wound 01/12/24 13:19 RB Document 01/19/24 13:12 KW h 01/19/24 13:26 KW 12/29/23 01/05/24 01/12/24 14:08 15:12 13:17 - Today's Visit Information Type of service Follow-up Visit Follow-up Visit Follow-up Visit (Physician/RHIC SYSTEMS SAFETY ENGINEER (Physician/RHIC SYSTEMS SAFETY ENGINEER (Physician/RHIC SYSTEMS SAFETY ENGINEER ) ) ) Arrival Mode Ambulatory Walker, Wheelchair Wheelchair Transfer Assistance None None None Accompanied by Patient Identification Verified (Name & Yes Yes Yes ) Patient Requires Transmission-Based No No Precautions Height and Weight Body Mass Index (BMI) 54.1 54.1 54.1 BMI Classification Obese Obese Obese Vital Signs Temperature (97.8 F-99.1 F) 97.7 F L 97 F L 96.4 F L Temperature Source Temporal Temporal Temporal Pulse Rate (60-100) 71 73 78 Pulse Location Monitor Monitor Monitor Respiratory Rate (12-18) 18 18 18 Respiratory rate source Observation Observation Observation Oxygen Delivery Method Blood Pressure (90/60-120/80) 115/52 L 150/65 H 133/42 H Blood Pressure Mean 73 93 72 Source Monitor Monitor Monitor Position Semi-Fowlers Semi-Fowlers Semi-Fowlers Blood Pressure Location Left Arm Left Arm Left Arm History Since Last Visit- (Skip if this is Patient's initial visit) Have you changed medications since your No No No last visit? Any new allergies or adverse reactions No No No Had a fall/change in ADL's that may No No No increase risk of falls Signs or symptoms of abuse and/or No No No neglect since last visit Have you been in the hospital since your No No No last visit? Has dressing in place as prescribed Yes Yes Yes Has compression in place as prescribed Yes Yes No Has offloadiing in place as prescribed No No No Experienced any changes in pain level or No No No management Left Footwear Right Footwear Pain Scale: 0-10 Numeric Is Patient Pain Free? Yes No Yes right stump -Description Aching -Intensity 4 -Duration (hours) Chronic -Pain Behavior Guarding -Pain Aggravating Factors Changing Position, Exercise/ Activity -Alleviating Factors/Interventions Medication -Effectiveness of Alleviating Factor/ Moderately Intervention effective 01/19/24 13:12 WC - Today's Visit Information Type of service Follow-up Visit (Physician/RHIC SYSTEMS SAFETY ENGINEER ) Arrival Mode Wheelchair Transfer Assistance Accompanied by Patient Identification Verified (Name & Yes ) Patient Requires Transmission-Based Precautions Height and Weight Body Mass Index (BMI) 54.1 BMI Classification Obese Vital Signs Temperature (97.8 F-99.1 F) 96.4 F L Temperature Source Temporal Pulse Rate (60-100) 78 Pulse Location Monitor Respiratory Rate (12-18) 18 Respiratory rate source Observation Oxygen Delivery Method Room Air Blood Pressure (90/60-120/80) 126/54 H Blood Pressure Mean 78 Source Monitor Position Semi-Fowlers Blood Pressure Location Left Arm History Since Last Visit- (Skip if this is Patient's initial visit) Have you changed medications since your No last visit? Any new allergies or adverse reactions No Had a fall/change in ADL's that may No increase risk of falls Signs or symptoms of abuse and/or No neglect since last visit Have you been in the hospital since your No last visit? Has dressing in place as prescribed Yes Has compression in place as prescribed N/A Has offloadiing in place as prescribed N/A Experienced any changes in pain level or No management Left Footwear Regular Shoe Right Footwear Regular Shoe Pain Scale: 0-10 Numeric Is Patient Pain Free? Yes right stump -Description -Intensity -Duration (hours) -Pain Behavior -Pain Aggravating Factors -Alleviating Factors/Interventions -Effectiveness of Alleviating Factor/ Intervention WC - Nurse 1 - General Ulcer Measurement Start: 12/29/23 14:07 Freq: Status: Active Protocol: Activity Type Activity Date Activity User E-sign Co-sign Detail Recorded Client Recorded Date Recorded By Document 12/29/23 14:08 RB wound center 12/29/23 14:11 RB Document 01/05/24 15:12 RB wound 01/05/24 15:16 RB Document 01/12/24 13:17 RB wound 01/12/24 13:19 RB Document 01/19/24 13:12 KW h 01/19/24 13:26 KW 12/29/23 01/05/24 01/12/24 14:08 15:12 13:17 Wound Center Nurse 1 #2inferior medial stump -Combined with other wound No No No -Current Size (cm) - Length 0.3 0.1 0.1 -Current Size (cm) - Width 0.4 0.1 0.1 -Current Size (cm) - Depth 0.1 0.1 0.1 -Total Square Cm 0.12 0.01 0.01 -Tunneling No No No -Undermining/Tunneling No No No -Circular Undermining No No No -Exudate Amt Medium Small Medium -Exudate Type Serosanguineous Serosanguineous Serosanguineous -Wound Margin Thickened & Distinct, Distinct, Rolled Under Outline Outline Attached Attached -Granulation Amt Medium (34-66%) Medium (34-66%) Medium (34-66%) -Granulation Quality [place] -Slough/Fibrin Yes Yes Yes -Necrosis Amt Medium (34-66%) Large (67-100%) Medium (34-66%) -Necrotic Tissue Type Adherent Slough Adherent Slough Adherent Slough -Structure Exposed N/A N/A N/A -Texture (Fadumo-wound Skin Appearance) Assessed Assessed Assessed, Scarring -Moisture (Fadumo-wound Skin Appearance) Assessed Assessed Assessed -Color (Fadumo-wound Skin Appearance) Assessed Assessed Assessed -Temperature (Fadumo-wound Skin No Abnormality No Abnormality No Abnormality Appearance) (Pt Warm) (Pt Warm) (Pt Warm) -Tenderness on Palpation (Fadumo-wound No No No Skin Appearance) -Ulcer Cleansing Wound Cleanser Wound Cleanser Wound Cleanser -Foul Odor after Cleansing No No No -Anesthetic Used 5% Lidocaine 5% Lidocaine 5% Lidocaine Gel Gel Gel #1 RT superior stump -Combined with other wound No No No -Current Size (cm) - Length 2.5 2.5 2.7 -Current Size (cm) - Width 4 3.7 3.4 -Current Size (cm) - Depth 0.2 0.2 0.3 -Total Square Cm 10.0 9.25 9.18 -Tunneling No No No -Undermining/Tunneling No No No -Circular Undermining No No No -Exudate Amt Medium Large Large -Exudate Type Serosanguineous Serosanguineous Serosanguineous -Wound Margin Thickened & Thickened & Distinct, Rolled Under Rolled Under Outline Attached -Granulation Amt Medium (34-66%) Medium (34-66%) Large (67-100%) -Granulation Quality [place],Red -Slough/Fibrin Yes Yes Yes -Necrosis Amt Medium (34-66%) Medium (34-66%) Medium (34-66%) -Necrotic Tissue Type Adherent Slough Adherent Slough Adherent Slough -Structure Exposed N/A N/A N/A -Texture (Fadumo-wound Skin Appearance) Assessed, Assessed Scarring Scarring -Moisture (Fadumo-wound Skin Appearance) Assessed Assessed Assessed -Color (Fadumo-wound Skin Appearance) Assessed Assessed Assessed -Temperature (Fadumo-wound Skin No Abnormality No Abnormality No Abnormality Appearance) (Pt Warm) (Pt Warm) (Pt Warm) -Tenderness on Palpation (Fadumo-wound No No No Skin Appearance) -Ulcer Cleansing Wound Cleanser Wound Cleanser Wound Cleanser -Foul Odor after Cleansing No No No -Anesthetic Used 5% Lidocaine 5% Lidocaine 5% Lidocaine Gel Gel Gel 01/19/24 13:12 Wound Center Nurse 1 #2inferior medial stump -Combined with other wound -Current Size (cm) - Length 2.9 -Current Size (cm) - Width 4 -Current Size (cm) - Depth 0.2 -Total Square Cm 11.6 -Tunneling -Undermining/Tunneling -Circular Undermining -Exudate Amt Medium -Exudate Type Serosanguineous -Wound Margin Distinct, Outline Attached -Granulation Amt -Granulation Quality -Slough/Fibrin -Necrosis Amt -Necrotic Tissue Type -Structure Exposed -Texture (Fadumo-wound Skin Appearance) Assessed -Moisture (Fadumo-wound Skin Appearance) Assessed -Color (Fadumo-wound Skin Appearance) Assessed -Temperature (Fadumo-wound Skin No Abnormality Appearance) (Pt Warm) -Tenderness on Palpation (Fadumo-wound No Skin Appearance) -Ulcer Cleansing Rinsed/ Irrigated with Saline -Foul Odor after Cleansing No -Anesthetic Used 5% Lidocaine Gel #1 RT superior stump -Combined with other wound -Current Size (cm) - Length 0.7 -Current Size (cm) - Width 0.7 -Current Size (cm) - Depth 0 -Total Square Cm 0.49 -Tunneling -Undermining/Tunneling -Circular Undermining -Exudate Amt None Present -Exudate Type -Wound Margin -Granulation Amt -Granulation Quality -Slough/Fibrin -Necrosis Amt Large (67-100%) -Necrotic Tissue Type Adherent Slough -Structure Exposed -Texture (Fadumo-wound Skin Appearance) Assessed -Moisture (Fadumo-wound Skin Appearance) Assessed -Color (Fadumo-wound Skin Appearance) Assessed -Temperature (Fadumo-wound Skin No Abnormality Appearance) (Pt Warm) -Tenderness on Palpation (Fadumo-wound No Skin Appearance) -Ulcer Cleansing Rinsed/ Irrigated with Saline -Foul Odor after Cleansing No -Anesthetic Used 5% Lidocaine Gel WC - Nurse 2 - General Ulcer CM Notes Start: 12/29/23 14:07 Freq: Status: Active Protocol: Activity Type Activity Date Activity User E-sign Co-sign Detail Recorded Client Recorded Date Recorded By Document 12/29/23 14:42 DS [id number] 12/29/23 15:19 DS Document 01/05/24 15:39 DS 1 01/05/24 15:50 DS Document 01/12/24 13:30 DS 1 01/12/24 13:39 DS Document 01/19/24 13:39 JF 0000 01/19/24 13:44 JF 12/29/23 01/05/24 01/12/24 14:42 15:39 13:30 Wound Center Nurse 2 #2inferior medial stump -Time 14:42 15:41 13:30 -Correct Patient Yes Yes Yes -Correct Side, Site, Position Yes Yes Yes -Correct Procedure Yes Yes Yes -Procedure Performed Yes Yes Yes -Type of Procedure Debridement Debridement Debridement -Clinical Debridement Subcutaneous Subcutaneous Subcutaneous -Tissue Removed Subcutaneous Subcutaneous Subcutaneous -Post Debridement (cm) - Length 0.5 0.8 0.5 -Post Debridement (cm) - Width 0.5 0.5 0.5 -Post Debridement (cm) - Depth 0.1 0.1 0.1 -Total Square (Post) (cm) 0.25 0.40 0.25 -Area of Debridement (cm) - Length 0.5 0.8 0.5 -Area of Debridement (cm) - Width 0.5 0.5 0.5 -Total Square (Area) (cm) 0.25 0.40 0.25 -Tunneling No No No -Undermining/Tunneling No No No -Circular Undermining No No No -Wound/Ulcer Outcome Not Healed Not Healed Not Healed -Ulcer Cleansing Rinsed/ Rinsed/ Rinsed/ Irrigated with Irrigated with Irrigated with Saline Saline Saline -Foul Odor after Cleansing -Bioengineered Tissue -Bleeding Controlled with Pressure Pressure Pressure -Treatment Response Procedure Procedure Procedure Tolerated Well Tolerated Well Tolerated Well -Offloading -Debridement - Subq, 1st 20sq cm No No No #1 RT superior stump -Time 14:42 15:42 13:31 -Correct Patient Yes Yes Yes -Correct Side, Site, Position Yes Yes Yes -Correct Procedure Yes Yes Yes -Procedure Performed Yes Yes Yes -Type of Procedure Debridement Debridement Debridement -Clinical Debridement Subcutaneous Subcutaneous Subcutaneous -Tissue Removed Subcutaneous Subcutaneous Subcutaneous -Post Debridement (cm) - Length 2.7 2.8 2.9 -Post Debridement (cm) - Width 3.5 3.6 3.8 -Post Debridement (cm) - Depth 0.5 0.5 0.5 -Total Square (Post) (cm) 9.45 10.08 11.02 -Area of Debridement (cm) - Length 2.7 2.8 2.9 -Area of Debridement (cm) - Width 3.5 3.6 3.8 -Total Square (Area) (cm) 9.45 10.08 11.02 -Tunneling No No No -Undermining/Tunneling No No No -Circular Undermining No No No -Wound/Ulcer Outcome Not Healed Not Healed Not Healed -Ulcer Cleansing Rinsed/ Rinsed/ Rinsed/ Irrigated with Irrigated with Irrigated with Saline Saline Saline -Foul Odor after Cleansing -Bioengineered Tissue -Bleeding Controlled with Pressure Pressure Pressure -Treatment Response Procedure Procedure Procedure Tolerated Well Tolerated Well Tolerated Well -Offloading -Debridement - Subq, 1st 20sq cm Yes Yes Yes Pain Scale: 0-10 Numeric Is Patient Pain Free? Yes Yes Yes 01/19/24 13:39 Wound Center Nurse 2 #2inferior medial stump -Time 13:39 -Correct Patient Yes -Correct Side, Site, Position Yes -Correct Procedure Yes -Procedure Performed Yes -Type of Procedure Debridement -Clinical Debridement Subcutaneous -Tissue Removed Subcutaneous -Post Debridement (cm) - Length 0.6 -Post Debridement (cm) - Width 0.5 -Post Debridement (cm) - Depth 0.1 -Total Square (Post) (cm) 0.30 -Area of Debridement (cm) - Length 0.6 -Area of Debridement (cm) - Width 0.5 -Total Square (Area) (cm) 0.30 -Tunneling No -Undermining/Tunneling No -Circular Undermining No -Wound/Ulcer Outcome Not Healed -Ulcer Cleansing Rinsed/ Irrigated with Saline -Foul Odor after Cleansing No -Bioengineered Tissue No -Bleeding Controlled with Pressure -Treatment Response Procedure Tolerated Well -Offloading No -Debridement - Subq, 1st 20sq cm No #1 RT superior stump -Time 13:40 -Correct Patient Yes -Correct Side, Site, Position Yes -Correct Procedure Yes -Procedure Performed Yes -Type of Procedure Debridement -Clinical Debridement Subcutaneous -Tissue Removed Subcutaneous -Post Debridement (cm) - Length 2.6 -Post Debridement (cm) - Width 3.4 -Post Debridement (cm) - Depth 0.2 -Total Square (Post) (cm) 8.84 -Area of Debridement (cm) - Length 2.6 -Area of Debridement (cm) - Width 3.4 -Total Square (Area) (cm) 8.84 -Tunneling No -Undermining/Tunneling No -Circular Undermining No -Wound/Ulcer Outcome Not Healed -Ulcer Cleansing Rinsed/ Irrigated with Saline -Foul Odor after Cleansing No -Bioengineered Tissue No -Bleeding Controlled with Pressure -Treatment Response Procedure Tolerated Well -Offloading No -Debridement - Subq, 1st 20sq cm Yes Pain Scale: 0-10 Numeric Is Patient Pain Free? Yes WC - Nurse 3 - General Ulcer D/C NN Start: 12/29/23 14:07 Freq: Status: Active Protocol: Activity Type Activity Date Activity User E-sign Co-sign Detail Recorded Client Recorded Date Recorded By Document 12/29/23 14:40 KW wound center 12/29/23 14:41 KW Document 01/05/24 15:57 KW wound center 01/05/24 15:57 KW Document 01/12/24 13:53 JF [id number] 01/12/24 13:55 JF Document 01/19/24 14:34 RB wound 01/19/24 14:37 RB 12/29/23 01/05/24 01/12/24 14:40 15:57 13:53 Wound Care Center Nurse 3 #2inferior medial stump -Ulcer Cleansing Rinsed/ Rinsed/ Irrigated with Irrigated with Saline Saline -Foul Odor after Cleansing No -Negative Pressure Wound Therapy -Setting (mmHg) -Negative Pressure is -Primary Dressing Applied Promogran Promogran Promogran Geovanna Matter Geovanna Matter Geovanna Matter -Primary Dressing Covered/Secured with Dry Gauze & Dry Gauze & Dry Gauze & Roll Gauze, Roll Gauze, Roll Gauze, Secured with Secured with Secured with Tape Tape Tape -NPWT Application Charge -Promogran Geovanna Matter 1 1 1 #1 RT superior stump -Ulcer Cleansing Rinsed/ Irrigated with Saline -Foul Odor after Cleansing No -Negative Pressure Wound Therapy -Setting (mmHg) -Negative Pressure is -Primary Dressing Applied Promogran Geovanna Matter -Primary Dressing Covered/Secured with Dry Gauze Dry Gauze Dry Gauze, Secured with Tape -NPWT Application Charge -Promogran Geovanna Matter 0 Right -Other Treatment Response Pain Scale: 0-10 Numeric Is Patient Pain Free? Yes Yes Yes Teaching: Wound Center Dressing Your Wound -Person Taught -Teaching Method -Response to teaching WC - Visit Discharge Discharge Condition Stable Stable Stable Ambulatory Status Wheelchair Wheelchair Ambulatory, Wheelchair Transportation Private Auto Private Auto Private Auto Accompanied by Medication Reconcilliation completed & No No Yes provided to patient/care provider Clinical Summary of Care Provided Yes Yes Yes 01/19/24 14:34 Wound Care Center Nurse 3 #2inferior medial stump -Ulcer Cleansing -Foul Odor after Cleansing -Negative Pressure Wound Therapy Continue -Setting (mmHg) 125 -Negative Pressure is Continuous -Primary Dressing Applied -Primary Dressing Covered/Secured with -NPWT Application Charge NPWT & Debridement (nc ) -Promogran Geovanna Matter #1 RT superior stump -Ulcer Cleansing Rinsed/ Irrigated with Saline -Foul Odor after Cleansing -Negative Pressure Wound Therapy Continue -Setting (mmHg) 125 -Negative Pressure is Continuous -Primary Dressing Applied -Primary Dressing Covered/Secured with -NPWT Application Charge NPWT & Debridement (nc ) -Promogran Geovanna Matter Right -Other justin Treatment Response Procedure Tolerated Well Pain Scale: 0-10 Numeric Is Patient Pain Free? Yes Teaching: Wound Center Dressing Your Wound -Person Taught Patient, Significant Other -Teaching Method Discussion, Demonstration -Response to teaching Verbalize understanding WC - Visit Discharge Discharge Condition Stable Ambulatory Status Wheelchair Transportation Private Auto Accompanied by Medication Reconcilliation completed & No provided to patient/care provider Clinical Summary of Care Provided Yes Lab / Micro Data Attestation: I reviewed the patient's lab results. Lab results narrative: Laboratory Tests 01/14/24 11:00 WBC 5.4 Hgb 11.0 L Hct 34.6 L Plt Count 170 Sodium 140 Potassium 3.9 Chloride 109 H BUN 16 Creatinine 0.94 Glucose 97 Calcium 8.8 Total Bilirubin 0.50 AST 24 ALT 34 Alkaline Phosphatase 132 H Total Protein 6.9 Albumin 3.5 Charges/Coding Visit Charges Office Visits / Consults: 36164 OV L2 Est 10min Procedures Integumentary 111xxx-113xx: [id number] Padmini subq tissue 20 sq cm/< Assessment/Plan Assessment/Plan (1) Non-pressure chronic ulcer of right calf with fat layer exposed: CODE(S): L97.212 - Non-pressure chronic ulcer of right calf with fat layer exposed (2) Surgical wound dehiscence: CODE(S): T81.31XA - Disruption of external operation (surgical) wound, not elsewhere classified, initial encounter QUALIFIERS: Encounter type: subsequent encounter Qualified Code(s): T81.31XD - Disruption of external operation (surgical) wound, not elsewhere classified, subsequent encounter (3) History of right below knee amputation: CODE(S): Z89.511 - Acquired absence of right leg below knee (4) Tinea cruris: CODE(S): B35.6 - Tinea cruris (5) Morbid obesity with BMI of 50.0-59.9, adult: CODE(S): E66.01 - Morbid (severe) obesity due to excess calories; Z68.43 - Body mass index [BMI] 50.0-59.9, adult (6) Diabetes mellitus, type 2: CODE(S): E11.9 - Type 2 diabetes mellitus without complications QUALIFIERS: Diabetes mellitus group home insulin use: with group home use Diabetes mellitus complication status: with kidney complications Diabetes mellitus complication detail: with chronic kidney disease Chronic kidney disease stage: stage 3 (moderate) Chronic kidney disease stage 3 subtype: stage 3a (GFR 45-59) Qualified Code(s): E11.22 - Type 2 diabetes mellitus with diabetic chronic kidney disease; N18.31 - Chronic kidney disease, stage 3a; Z79.4 - terminal clerk (current) use of insulin (7) Below knee amputation: CODE(S): S88.119A - 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, unspecified lower leg, initial encounter QUALIFIERS: Encounter type: sequela Laterality: bilateral Qualified Code(s): S88.111S - 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, right lower leg, sequela; S88.112S - 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, left lower leg, sequela (8) Hypothyroid: CODE(S): E03.9 - Hypothyroidism, unspecified QUALIFIERS: Hypothyroidism type: acquired Qualified Code(s): E03.9 - Hypothyroidism, unspecified (9) Benign essential HTN: CODE(S): I10 - Essential (primary) hypertension (10) Breast cancer in female: CODE(S): C50.919 - Malignant neoplasm of unspecified site of unspecified female breast QUALIFIERS: Breast location: unspecified site of breast Estrogen receptor status: positive Laterality: right Qualified Code(s): C50.911 - Malignant neoplasm of unspecified site of right female breast; Z17.0 - Estrogen receptor positive status [ER+] (11) History of kidney stones: CODE(S): Z87.442 - Personal history of urinary calculi (12) Physical debility: CODE(S): R53.81 - Other malaise (13) Hx of supraventricular tachycardia: CODE(S): Z86.79 - Personal history of other diseases of the circulatory system (14) Hyperlipidemia: CODE(S): E78.5 - Hyperlipidemia, unspecified (15) GERD (gastroesophageal reflux disease): CODE(S): K21.9 - Gastro-esophageal reflux disease without esophagitis (16) Pulmonary hypertension: CODE(S): I27.20 - Pulmonary hypertension, unspecified (17) Chronic renal failure, stage 3 (moderate): CODE(S): N18.30 - Chronic kidney disease, stage 3 unspecified (18) Diverticulosis: CODE(S): K57.90 - Diverticulosis of intestine, part unspecified, without perforation or abscess without bleeding (19) Rheumatoid arthritis: CODE(S): M06.9 - Rheumatoid arthritis, unspecified (20) History of endometrial cancer: CODE(S): Z85.42 - Personal history of malignant neoplasm of other parts of uterus (21) History of total abdominal hysterectomy and bilateral salpingo-oophorectomy: CODE(S): Z90.710 - Acquired absence of both cervix and uterus; Z90.722 - Acquired absence of ovaries, bilateral; Z90.79 - Acquired absence of other genital organ(s) (22) History of cardiac radiofrequency ablation: CODE(S): Z98.890 - Other specified postprocedural states (23) History of carpal tunnel release: CODE(S): Z98.890 - Other specified postprocedural states (24) History of tonsillectomy: CODE(S): Z90.89 - Acquired absence of other organs (25) Right leg swelling: CODE(S): M79.89 - Other specified soft tissue disorders PLAN: Plan This is a 63-year-old female with multiple pre-existing medical problems, who presented with a 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 She underwent right below-knee amputation on October 19, 2023 at [facility]. Shortly following the removal of her surgical luisana, several weeks following surgery, she developed a surgical wound dehiscence. She was referred to the [facility] for definitive management. 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 The patient has been advised to elevate her right lower extremity to heart level as much as possible. She admits to sleeping on a flat mattress at night. Elevation will help to minimize swelling. We are to implement the use of negative pressure wound therapy. Approval has been obtained for the use of a wound VAC. The wound VAC is to be applied today, and will be changed twice weekly, with the assistance of home health nursing care. The wound VAC setting is 150 mmHg with continuous suction. Optimizing nutritional intake and glycemic control has been discussed. A nutritional supplement, such as Glucerna, would be appropriate. Wound cultures were obtained several weeks ago, and were positive for Enterobacter cloacae, Staphylococcus epidermidis, Enterococcus faecalis, Staphylococcus lugdunensis, anaerobic cocci, and Bacteroides fragilis. The patient was placed on Bactrim double strength twice daily orally for 10 days, and amoxicillin 500 mg p.o. orally twice daily for 10 days. The courses of antibiotics have been completed. The overt signs of infection have resolved, and the wound appears pink and healthy with evidence of active granulation tissue. Apparently, as a result of the oral antibiotic treatment, the patient developed a vaginal yeast infection, for which she has been treated by her urogynecologist with Diflucan. She is also developed severe tinea cruris in the perineal region, for which we have prescribed clotrimazole/betamethasone 1%/0.0 0.5% antifungal cream, to be applied topically twice daily. The prescription has been called to the patient's local pharmacy. The patient is to follow-up in 1 week for reassessment. The patient's right breast surgery, by Dr. Knapp, has been postponed at the discretion of her surgeon. In the interim, the patient indicates that her oncologist has implemented hormonal therapy. The decision to proceed with breast surgery will be deferred to Dr. Knapp. Total time: 25 minutes
== END 2024-01-24 23:59 | disposition home or self-care (01) ==
LOC: WC 13:15
PROVIDERS: PCP Nurse Practitioner Family; Referring Provider Nurse Practitioner Family; Visit Provider Surgery
DX: L97.212 Non-pressure chronic ulcer of right calf with fat layer exposed (principal); E11.622 Type 2 diabetes mellitus with other skin ulcer; M06.9 Rheumatoid arthritis, unspecified; Z89.511 Acquired absence of right leg below knee; I27.20 Pulmonary hypertension, unspecified; Z68.43 Body mass index [BMI] 50.0-59.9, adult; C50.911 Malignant neoplasm of unspecified site of right female breast; E66.01 Morbid (severe) obesity due to excess calories; E11.22 Type 2 diabetes mellitus with diabetic chronic kidney disease; Z79.4 Long term (current) use of insulin; E11.42 Type 2 diabetes mellitus with diabetic polyneuropathy; E11.29 Type 2 diabetes mellitus with other diabetic kidney complication; E11.610 Type 2 diabetes mellitus with diabetic neuropathic arthropathy; N18.31 Chronic kidney disease, stage 3a; T81.31XD Disruption of external operation (surgical) wound, not elsewhere classified, subsequent encounter; K57.90 Diverticulosis of intestine, part unspecified, without perforation or abscess without bleeding; Z17.0 Estrogen receptor positive status [ER+]; K21.9 Gastro-esophageal reflux disease without esophagitis; Z90.722 Acquired absence of ovaries, bilateral; Z90.710 Acquired absence of both cervix and uterus; E78.5 Hyperlipidemia, unspecified; Z82.3 Family history of stroke; E89.0 Postprocedural hypothyroidism; Z80.41 Family history of malignant neoplasm of ovary; I12.9 Hypertensive chronic kidney disease with stage 1 through stage 4 chronic kidney disease, or unspecified chronic kidney disease; B35.6 Tinea cruris; Z86.79 Personal history of other diseases of the circulatory system; S88.11 Complete traumatic amputation at level between knee and ankle; S88.112S Complete traumatic amputation at level between knee and ankle, left lower leg, sequela; Z90.89 Acquired absence of other organs; M79.89 Other specified soft tissue disorders; Z85.42 Personal history of malignant neoplasm of other parts of uterus
CPT/HCPCS: 11042; 87070; 87075; 87077; 87186; 87205

== ENCOUNTER → 2024-01-20 | Outpatient (CLI) | payer OTHER, SELFPAY ==
--- NOTE | 2024-01-20 13:59 | BD_ITS ---
STUDY: DUAL ENERGY X-RAY ABSORPTIOMETRY / DXA REASON FOR EXAM: Female, 63 years old. Screening TECHNIQUE: Bone Mineral Density (BMD) measurements of both forearms were obtained. COMPARISON: None. FINDINGS: Right Forearm: g/cm2 (0.601) / T-score (0.4) / Z-score (1.8) Left Forearm: g/cm2 (0.622) / T-score (0.8) / Z-score (2.2) BD/Dexa Bone Density/Append Skel IMPRESSION: The patient is considered normal as outlined below according to World Jian Organization (WHO) criteria with a low fracture risk. Reference Information: The T-score is the number of standard deviations above or below the standard which is normal for young adults at their peak bone mineral density. The World Health Organization (WHO) interprets the T-scores as follows: Above -1 Normal bone density Between -1 and -2.5 Osteopenia Equal to / or below -2.5 Osteoporosis As a practical clinical guideline, osteopenia may be graded as follows: Mild -1 through -1.5 Moderate -1.6 through -2.0 Severe -2.1 through -2.4 The Z-score is the number of standard deviations above or below age-matched controls. A Z-score of less than -1.5 would be considered abnormal. References: 1. NIH Osteoporosis and Related Bone Diseases www osteo.org 2. International Society for Clinical Densitometry www iscd.org 3. National Osteoporosis Foundation www nof.org Electronically Signed: Michele Gilliland MD at 16:26 EDT ,
== END | disposition home or self-care (01) ==
LOC: OPBD 13:51
PROVIDERS: PCP Nurse Practitioner Family; Referring Provider Nurse Practitioner Family; Visit Provider Nurse Practitioner Family
DX: Z13.820 Encounter for screening for osteoporosis (principal)
CPT/HCPCS: 77081

== ENCOUNTER 2024-01-23 08:54 | Emergency (ER) | payer OTHER, SELFPAY ==
[2024-01-23 08:55] VITALS: BP 128/52; PULSE 108; RESP 16; TEMP 36; O2SAT 94; BMI 52.6
[2024-01-23 09:20] VITALS: TEMP 37.7
--- NOTE | 2024-01-23 09:26 | EKG12_ITS ---
Test Reason : FEVER Blood Pressure : / mmHG Vent. Rate : 079 BPM Atrial Rate : 079 BPM P-R Int : 186 ms QRS Dur : 090 ms QT Int : 390 ms P-R-T Axes : 048 -18 088 degrees QTc Int : 447 ms Normal sinus rhythm Nonspecific T wave abnormality Abnormal ECG Confirmed by Lorenzo Medina ([id number]), editorial manager NOREEN WELDON ([id number]) on 01/25/2024 8:17:44 AM Referred By: Confirmed By:Lorenzo Medina
--- NOTE | 2024-01-23 09:26 | RAD_ITS ---
INDICATION: fever EXAMINATION/TECHNIQUE: X-RAY - XR Chest 1 View COMPARISON: March 16, 2018 FINDINGS: LINES/DEVICES: None. LUNGS: No consolidation, edema or effusion. No pneumothorax. MEDIASTINUM AND CARDIOVASCULAR STRUCTURES: There is cardiomegaly. Central airways and mediastinal contour are unremarkable. BONES AND SOFT TISSUES: Unremarkable. RAD/Chest 1 View (Portable) IMPRESSION: Cardiomegaly. Electronically Signed: Kera Doyle MD at 10:48 EDT ,
--- NOTE | 2024-01-23 10:07 | EX.ED.DYSGE1 ---
HPI History of Present Illness Chief Complaint: Fever Informant: patient and spouse/S.O. Narrative Narrative: 63-year-old female presenting to the emergency room for the evaluation of fever. Patient states that she just finished 2 unknown antibiotics for a stump infection of a right BKA. She has a wound VAC in place. Family states that home health was out yesterday evaluated the wound VAC and wound. The antibiotics resulted in a vaginal yeast infection and inguinal skin fold infection. She is taken 3 doses of Diflucan and has been using clotrimazole cream. Patient states that she woke this morning and had a oral temperature of 101.3. She did not take anything for the fever. She notes that she has not had any significant cough sore throat rhinorrhea diarrhea vomiting or rashes. She has a history of diabetes. She states that while she was in rehab following the right BKA she was diagnosed with breast cancer. She states that she recently talked started an antiestrogen medicine but does not know the name. states he is feeling fine. [facility] Medical History Tinea cruris Non-pressure chronic ulcer of right calf with fat layer exposed Wears glasses Post-menopausal Cancer Anxiety Open wound Thyroid disease Insulin dependent diabetes mellitus Uses wheelchair Fatty liver High cholesterol Dietary restriction Non-smoker History of edema History of echocardiogram History of stress test Cardiology follow-up encounter Surgical wound dehiscence Right leg swelling History of endometrial cancer Rheumatoid arthritis Diverticulosis Chronic renal failure, stage 3 (moderate) Pulmonary hypertension GERD (gastroesophageal reflux disease) Hyperlipidemia History of kidney stones Breast cancer in female Morbid obesity with BMI of 50.0-59.9, adult Hydronephrosis Ureteral calculus Charcot ankle Diabetic neuropathy Morbid obesity with BMI of 50.0-59.9, adult Diverticulosis Diabetes mellitus, type 2 Chronic renal failure (CRF), stage 3a Anemia Rheumatoid arthritis Chronic pain CPAP (continuous positive airway pressure) dependence Pulmonary hypertension BRITT (obstructive sleep apnea) Thyromegaly Hx of supraventricular tachycardia Nephrolithiasis Rosacea Fatty liver External hemorrhoid GERD without esophagitis Benign essential HTN Bilateral carpal tunnel syndrome Hyperlipidemia Low vitamin B12 level Multinodular goiter Tubular adenoma Adenocarcinoma of endometrium Home Medications ?Medication ?Instructions ?Recorded ?Last Taken ?Type aspirin 81 mg tablet,delayed 81 mg PO DAILY [facility] 01/11/16 12/22/23 History release cetirizine 10 mg capsule 10 mg PO DAILY Allergies 01/11/16 Unknown History metoprolol succinate 100 mg 100 mg PO DAILY BP 01/11/16 07/03/17 History tablet,extended release 24 hr multivitamin 1 ea PO DAILY Supplement 01/11/16 Unknown History omeprazole 40 mg capsule,delayed 40 mg PO DAILY GERD 01/11/16 07/03/17 History release simvastatin 20 mg tablet 20 mg PO QHS Cholestrol 01/11/16 Unknown History cyanocobalamin (vitamin B-12) 1,000 mcg PO DAILY Supplement 07/02/17 Unknown History 1,000 mcg sublingual tablet hydroxychloroquine 200 mg tablet 200 mg PO BID Platelets 04/28/18 Unknown History (Plaquenil) pregabalin 150 mg capsule (Lyrica) 150 mg PO QHS Nerve pain 06/14/18 Unknown History ferrous sulfate 325 mg (65 mg 325 mg PO DAILY supplement 04/25/20 Unknown History iron) tablet (Feosol) allopurinol 100 mg tablet 100 mg PO DAILY #30 tabs 11/18/23 Unknown Rx ascorbic acid (vitamin C) 500 mg 1,000 mg (2 x 500 mg) PO DAILY #30 11/18/23 Unknown Rx tablet tabs calcium carbonate (Oyster Shell 500 mg PO BREAKFAST #30 tabs 11/18/23 Unknown Rx Calcium 500) insulin lispro 100 unit/mL 3 unit (0.03 mL) subcut TID PRN 11/18/23 Unknown Rx subcutaneous pen elevated BS #15 mL insulin regular hum U-500 conc 500 See Rx Instructions .Route 11/18/23 Unknown Rx unit/mL(3 mL) subcut pen .COMPLEX Blood sugar 30 days #5 pens pregabalin 100 mg capsule (Lyrica) 100 mg PO BID #60 caps 11/19/23 Unknown Rx blood sugar diagnostic (OneTouch #100 ea 12/03/23 Unknown Rx Ultra Test strips) blood-glucose sensor (Dexcom G6 #9 ea 12/03/23 Unknown Rx Sensor device) blood-glucose transmitter (Dexcom #1 ea 12/03/23 Unknown Rx G6 Transmitter device) bupropion HCl 300 mg 24 hr tablet, 300 mg PO DAILY #90 tabs 12/03/23 Unknown Rx extended release levothyroxine 300 mcg tablet 300 mcg PO DAILY #30 tabs 12/03/23 Unknown Rx losartan 50 mg tablet (Cozaar) 50 mg PO DAILY #90 tabs 12/03/23 Unknown Rx AshantiTouch Delica Plus Lancet 33 #100 ea 12/04/23 Unknown Rx gauge (lancets) blood sugar diagnostic (OneTouch #100 ea 12/04/23 Unknown Rx Ultra Test strips) buspirone 5 mg tablet 5 mg PO TID #90 tabs 12/11/23 Unknown Rx alprazolam 0.5 mg tablet (Xanax) 0.5 mg PO TID PRN PRN panic attack 12/25/23 Unknown History fiber 1 cap PO DAILY 12/25/23 Unknown History oxycodone 5 mg capsule 5 mg PO Q6H PRN PRN pain 12/25/23 Unknown History anastrozole 1 mg tablet (Arimidex) 1 mg PO DAILY #90 tabs 01/14/24 Unknown Rx clotrimazole-betamethasone 1 applic topical BID 01/23/24 Unknown History %-0.05 % topical cream nystatin 100,000 unit/gram topical topical BID 01/23/24 Unknown History ointment Allergy/AdvReac Type Severity Reaction Status Date / Time No Known Allergies Allergy Verified 01/23/24 08:55 Family History Mother Ovarian cancer Hypertension Arthritis Uterine cancer Fibrocystic disease of breast Hypothyroid Father , Age 86-CHF Hypertension Arthritis Diverticulitis of colon Depression CAD (coronary artery disease) Sister Hypertension Depression CVA (cerebral vascular accident) Fibrocystic disease of breast Diabetes Bleeding disorder Portal hypertension Surgical History Hx of cystoscopy Hx of total thyroidectomy History of tonsillectomy History of carpal tunnel release History of cardiac radiofrequency ablation History of total abdominal hysterectomy and bilateral salpingo-oophorectomy History of below-knee amputation S/P cystoscopy with ureteral stent placement History of right below knee amputation History of hand surgery H/O cardiac radiofrequency ablation (02/15/13) History of right and left heart catheterization (07/03/17) H/O colonoscopy H/O abdominal hysterectomy H/O carpal tunnel repair Previous section History of tonsillectomy Hx of cholecystectomy Surgical menopause Social History Smoking Status: Never smoker second hand exposure: No alcohol intake: never substance use type: does not use caffeine: No ROS ROS ED Constitutional Constitutional ED: Reports chills, fever(s) and sweats; Denies weight loss Eyes Eyes: Denies change in vision or diplopia ENT ENT ED: Denies ear pain, rhinorrhea or sore throat Cardiovascular Cardiovascular: Denies chest pain, orthopnea, palpitations or racing heartbeat Respiratory/Chest Respiratory/Chest: Denies cough, dyspnea or orthopnea Gastrointestinal Gastrointestinal: Denies abdominal pain, diarrhea, nausea or vomiting Genitourinary Genitourinary ED: Reports other Details: See history of present illness ; Denies dysuria, hematuria or urinary frequency Musculoskeletal Musculoskeletal: Reports other Details: Wound VAC right BKA surgical wound dehiscence ; Denies arthralgias, back pain, myalgias or neck pain Integumentary Denies abscess or rash Neurologic Neurologic: Reports headache(s); Denies paresthesias or weakness Psychiatric Psychiatric: Denies anxiety, depression, suicidal ideation or suicidal thoughts Endocrine Endocrinology: Denies polydipsia, polyphagia or polyuria Allergic/Immunologic Allergic/Immunologic ED: Denies mouth swelling, tongue swelling or urticaria EXAM Physical Exam Const Vital Signs: 01/23/24 08:55 01/23/24 09:15 01/23/24 09:20 Temperature 96.8 F L 99.8 F H Temperature Source Temporal Oral Pulse Rate 108 H Respiratory Rate 16 Respiratory Effort Normal Non-Labored Respiratory Pattern Normal Blood Pressure 128/52 H Blood Pressure Mean 77 Pulse Ox 94 Oxygen Delivery Method Room Air 01/23/24 11:00 Temperature 98.6 F Temperature Source Oral Pulse Rate 76 Respiratory Rate 18 Respiratory Effort Respiratory Pattern Blood Pressure 124/64 H Blood Pressure Mean 84 Pulse Ox 96 Oxygen Delivery Method Room Air Positive well nourished, well developed and obese General Appearance ED: well developed and NAD Nutritional Appearance: obese HEENT Reports normocephalic, head/scalp atraumatic and moist mucous membranes Eyes PERRL and EOMs intact bilaterally Neck no lymphadenopathy, supple and no JVD Resp normal respiratory effort and clear to auscultation bilaterally Cardio regular rate, regular rhythm and no murmurs GI normal to inspection, nondistended, normoactive bowel sounds and non-tender Palpation: soft Back/Spine no CVA tenderness and normal ROM Extremity Extremity Narrative: Right BKA with wound VAC in place. General Extremety ED: Negative for edema General Extremity: Negative for edema Neuro oriented x3 and CN's II-XII intact bilaterally Sensorium / Orientation: alert Motor Exam: strength 5/5 throughout Psych mental status grossly normal Mood & Affect: Negative for depressed or tearful Skin no wounds Skin Narrative: Inguinal skin folds with evidence of yeast candidiasis MDM MDM MDM Narrative Medical decision making narrative: Differential diagnosis includes but not limited to cellulitis abscess viral syndrome UTI sepsis candidiasis electrolyte disturbance dehydration pneumonia. My independent interpretation of the single view chest x-ray is no acute process no definite infiltrate. White count 10.5 with a hemoglobin of 12 platelet count is 168. Coags within normal limits. Lactic acid normal at 1.3. Creatinine 1.18 with a BUN of 20 liver enzymes showed alkaline phosphatase of 142. Urinalysis is 2+ bacteria 0-5 white cells positive nitrates positive leukocyte Estrace. Blood and urine cultures were sent. COVID influenza and RSV swabs were negative. Patient has remained afebrile here. History & Record Review Discussion w/independent historian: Patient and Significant other Lab Data Attestation: I reviewed the patient's lab results. Labs: Laboratory Results - last 24 hr 01/23/24 01/23/24 01/23/24 08:54 09:54 11:03 WBC 10.5 RBC 3.84 L Hgb 12.0 Hct 36.2 L MCV 94.3 MCH 31.3 MCHC 33.1 RDW Std Deviation 47.7 H RDW Coeff of Roland 13.9 Plt Count 168 MPV 9.9 Immature Gran % (Auto) 0.600 Neut % (Auto) 84.7 H Lymph % (Auto) 7.8 L [place] % (Auto) 5.7 Eos % (Auto) 0.6 Baso % (Auto) 0.6 Absolute Neuts (auto) 8.9 H Absolute Lymphs (auto) 0.82 L Nucleated RBC % 0 PT 14.4 INR 1.1 APTT 24.3 Sodium 137 Potassium 5.0 Chloride 102 Carbon Dioxide 28.0 Anion Gap 7 BUN 20 H Creatinine 1.18 H Estim Creat Clear Calc 73.92 Est GFR (MDRD) Af Amer 60 Est GFR (MDRD) Non-Af 49 L BUN/Creatinine Ratio 16.9 Glucose 172 H Lactic Acid 1.3 Calcium 9.1 Total Bilirubin 0.60 AST 33 ALT 29 Alkaline Phosphatase 142 H Troponin I High Sens 4 Total Protein 7.5 Albumin 3.5 Globulin 4.0 Albumin/Globulin Ratio 0.9 Urine Color Yellow Urine Clarity Clear Urine pH 6.0 Ur Specific [place] 1.010 Urine Protein Negative Urine Glucose (UA) Normal Urine Ketones Negative Urine Occult Blood 10 H Urine Nitrite Positive H Urine Bilirubin Negative Urine Urobilinogen Normal Ur Leukocyte Esterase 500 H Urine RBC 0 SEEN Urine WBC 0-5 SEEN Ur Squamous Epith Cells 0 SEEN Urine Bacteria 2+ Urine Mucus 0 SEEN Radiography Diagnostic Testing: Clinical Impression(s) from Imaging Studies Chest X-Ray 01/23/24 09:26 IMPRESSION: Cardiomegaly. Electronically Signed: Kera Doyle MD at 10:48 EDT , EKG Initial EKG: Attestation: I personally reviewed and interpreted this EKG as follows: Comments: Normal sinus rhythm ventricular rate of 79 bpm Discharge Plan Triage Chief Complaint: Fever ED Provider: Mack Segal Dx/Rx/DC Orders Prescriptions: No Action hydroxychloroquine [Plaquenil] 200 mg tablet 200 mg PO BID pregabalin [Lyrica] 150 mg capsule 150 mg PO QHS ferrous sulfate [Feosol] 325 mg (65 mg iron) tablet 325 mg PO DAILY losartan [Cozaar] 50 mg tablet 50 mg PO DAILY Qty: 90 1RF bupropion HCl 300 mg tablet extended release 24 hr 300 mg PO DAILY Qty: 90 1RF levothyroxine 300 mcg tablet 300 mcg PO DAILY Qty: 30 5RF (DME) OneTouch Ultra Test Strip See Rx Instructions .Route Qty: 100 5RF Rx Instructions: TID (DME) Dexcom G6 Sensor Device See Rx Instructions .Route Qty: 9 1RF Rx Instructions: 1 sensor q 10 days (DME) Dexcom G6 Transmitter Device See Rx Instructions .Route Qty: 1 1RF Rx Instructions: 1 transmitter q 90 days anastrozole [Arimidex] 1 mg tablet 1 mg PO DAILY Qty: 90 4RF multivitamin 1 EACH tablet 1 ea PO DAILY Patient Comments: SUPPLEMENT metoprolol succinate 100 MG tablet 100 mg PO DAILY Patient Comments: HEART omeprazole 40 MG capsule 40 mg PO DAILY Patient Comments: HEARTBURN, GERD aspirin 81 MG tablet,delayed release (DR/EC) 81 mg PO DAILY Patient Comments: HEART HEALTH, STROKE PREVENTION simvastatin 20 MG tablet 20 mg PO QHS Patient Comments: CHOLESTEROL cetirizine 10 MG capsule 10 mg PO DAILY Patient Comments: ALLERGIES cyanocobalamin (vitamin B-12) 1,000 MCG tablet, sublingual 1,000 mcg PO DAILY buspirone 5 mg tablet 5 mg PO TID Qty: 90 0RF nystatin 100,000 unit/gram ointment topical BID clotrimazole-betamethasone 1-0.05 % cream TOPICAL BID ascorbic acid (vitamin C) 500 mg Tablet 1,000 mg PO DAILY Qty: 30 0RF Rx Instructions: Take this with the iron with food. calcium carbonate [Oyster Shell Calcium 500] 500 mg calcium (1,250 mg) Tablet 500 mg PO BREAKFAST Qty: 30 0RF insulin regular hum U-500 conc 500 unit/mL (3 mL) insulin pen See Rx Instructions .ROUTE .COMPLEX 30 Days Qty: 5 0RF Rx Instructions: 145 units with breakfast 10 units with lunch 40 units at HS insulin lispro 100 unit/mL insulin pen 3 unit subcut TID PRN (Reason: elevated BS) Qty: 15 0RF Rx Instructions: 180-210 20 units 211-240 25 units 241-280 30 units >280 40 units allopurinol 100 mg tablet 100 mg PO DAILY Qty: 30 0RF pregabalin [Lyrica] 100 mg capsule 100 mg PO BID Qty: 60 0RF fiber Capsule 1 cap PO DAILY alprazolam [Xanax] 0.5 mg tablet 0.5 mg PO TID PRN PRN (Reason: panic attack) oxycodone 5 mg capsule 5 mg PO Q6H PRN PRN (Reason: pain) (DME) lancets [OneTouch Delica Plus Lancet] 33 gauge misc See Rx Instructions .Route Qty: 100 3RF Rx Instructions: As directed (DME) OneTouch Ultra Test Strip See Rx Instructions .Route Qty: 100 3RF Rx Instructions: As directed Primary Care Provider: Anabell De Leon Referrals: Moises,Anabell VSC, BILINGUAL ADMINISTRATIVE ASSISTANT-C [Primary Care Provider] - Print Language: Turkmen
[2024-01-23 10:13] LABS: Absolute Lymphocyte Count 0.82 X10^3/uL (0.83-4.51); Absolute Neutrophil Count 8.9 X10^3/uL (2.0-7.7); Basophil# 0.06 X10^3/uL; Basophil% 0.6 % (0-1); Eosinophil# 0.06 X10^3/uL; Eosinophils% 0.6 % (0-5); Hematocrit 36.2 % (37-47); Lymphocyte # 0.82 X10^3/ul (0.83-4.51); Lymphocyte % 7.8 % (19-41); Mean Corp Hgb Conc 33.1 g/dL (32-36); Mean Corpuscular Hgb 31.3 pg (27.0-32.0); Mean Corpuscular Volume 94.3 fL (81-99); Mean Platelet Vol. 9.9 fl (6.2-12.0); Monocyte% 5.7 % (0-10); NRBC Flagged by Analyzer 0 % (0-5); Neutrophil # 8.94 X10^3/uL (2.7-7.7); Neutrophil % 84.7 % (47-70); Platelet Count 168 K/mm3 (150-450); RBC Distribution Width CV 13.9 % (11.6-14.6); RBC Distribution Width SD 47.7 fl (35.1-43.9); Red Blood Count 3.84 M/mm3 (4.2-5.4); White Blood Count 10.5 K/mm3 (4.4-11.0)
[2024-01-23 10:17] LABS: International Normalized Ratio 1.1; Prothrombin Time (Protime)PT. 14.4 SECONDS (11.7-14.9)
[2024-01-23] MEDS: 0.9% Normal Saline (1000mL) 1,000 ML 150 ML IV (10:17)
[2024-01-23 10:18] LABS: Partial Thromboplast Time 24.3 Seconds (24.1-36.2)
[2024-01-23 10:32] LABS: ALB/GLOB Ratio 0.9 RATIO (0.9-2.4); AST(SGOT) 33 U/L (15-37); Alanine Aminotransfer ALT/SGPT 29 U/L (13-56); Albumin, Serum 3.5 g/dL (3.2-5.0); Alkaline Phosphatase 142 U/L (45-117); Anion Gap 7 (5-15); BUN 20 mg/dL (7-18); BUN/Creat Ratio 16.9 RATIO (10-20); Calcium,Total 9.1 mg/dL (8.5-10.1); Chloride 102 mmol/L (98-107); Creatinine, Serum 1.18 mg/dL (0.55-1.02); EST Glomerular Filtration Rate 49 mL/min (>60); Est Glom Filt Rate - Afr Amer 60 mL/min (>60); Estimated Creatinine Clearance 73.92 ml/min; Glucose 172 mg/dL (74-106); Protein, Total 7.5 g/dL (6.4-8.2); Sodium Level 137 mmol/L (136-145); Troponin-I HS 4 pg/mL (3.0-54.0)
[2024-01-23 10:59] LABS: Lactic Acid 1.3 mmol/L (0.4-1.9)
[2024-01-23 11:00] VITALS: BP 124/64; PULSE 76; RESP 18; TEMP 37; O2SAT 96
[2024-01-23 11:13] LABS: Mucous, Urine 0 SEEN /hpf (<or=2+); Red Blood Cells-Urine 0 SEEN /hpf (0-5); Squamous Epithelial Cells - UA 0 SEEN /hpf (5-10)
[2024-01-23 11:15] LABS: Color, Urine Yellow (Yellow); Glucose, Dipstick Normal (Normal); Ketone-Dipstick Negative (Negative); Leukocyte Esterase-Dipstick 500 /ul (Negative); Nitrite-Dipstick Positive (Negative); Occult Blood-Urine 10 /ul (Negative); Protein-Dipstick Negative (Negative); Urine Bilirubin Dipstick Negative (Negative); Urine Clarity Clear (Clear); Urine Urobilinogen Normal (Normal)
[2024-01-23 11:25] LABS: Bacteria 2+ /hpf (None Seen); White Blood Cells 0-5 SEEN /hpf (0-5)
[2024-01-23 12:54] VITALS: BP 129/62; PULSE 64; RESP 18; O2SAT 98
[2024-01-23 13:38] VITALS: BP 141/63; PULSE 74; RESP 16; TEMP 36.9; O2SAT 98
== END 2024-01-23 13:47 | disposition home or self-care (01) ==
PROVIDERS: Emergency Provider Emergency Medicine; PCP Nurse Practitioner Family; Visit Provider Emergency Medicine
DX: R50.9 Fever, unspecified (principal); Z89.511 Acquired absence of right leg below knee; C50.919 Malignant neoplasm of unspecified site of unspecified female breast; E11.22 Type 2 diabetes mellitus with diabetic chronic kidney disease; Z79.4 Long term (current) use of insulin; E11.40 Type 2 diabetes mellitus with diabetic neuropathy, unspecified; I12.9 Hypertensive chronic kidney disease with stage 1 through stage 4 chronic kidney disease, or unspecified chronic kidney disease; E78.5 Hyperlipidemia, unspecified; Z80.41 Family history of malignant neoplasm of ovary; B37.31 Acute candidiasis of vulva and vagina; E66.9 Obesity, unspecified; Z90.49 Acquired absence of other specified parts of digestive tract; R51.9 Headache, unspecified; Z90.710 Acquired absence of both cervix and uterus; G47.33 Obstructive sleep apnea (adult) (pediatric); Z99.89 Dependence on other enabling machines and devices
CPT/HCPCS: 36415; 71045; 80053; 81001; 83605; 84484; 85025; 85610; 85730; 87040; 87077; 87086; 87088; 87186; 87631; 93005; 96360; 96361; 99283

== ENCOUNTER → 2024-02-16 | Outpatient (CLI) | payer OTHER, SELFPAY ==
[2024-02-16 17:08] LABS: Hematocrit 36.3 % (37-47); Mean Corp Hgb Conc 33.1 g/dL (32-36); Mean Corpuscular Hgb 30.6 pg (27.0-32.0); Mean Corpuscular Volume 92.6 fL (81-99); Mean Platelet Vol. 9.8 fl (6.2-12.0); Platelet Count 187 K/mm3 (150-450); RBC Distribution Width CV 13.7 % (11.6-14.6); RBC Distribution Width SD 46.8 fl (35.1-43.9); Red Blood Count 3.92 M/mm3 (4.2-5.4); White Blood Count 6.5 K/mm3 (4.4-11.0)
[2024-02-16 17:32] LABS: AST(SGOT) 26 U/L (15-37); Alanine Aminotransfer ALT/SGPT 34 U/L (13-56); Albumin, Serum 3.6 g/dL (3.2-5.0); Alkaline Phosphatase 127 U/L (45-117); Anion Gap 7 (5-15); BUN 20 mg/dL (7-18); Calcium,Total 9.4 mg/dL (8.5-10.1); Chloride 105 mmol/L (98-107); Creatinine, Serum 1.05 mg/dL (0.55-1.02); EST Glomerular Filtration Rate 56 mL/min (>60); Est Glom Filt Rate - Afr Amer 68 mL/min (>60); Globulin 3.7 g/dL (2.2-4.2); Glucose 90 mg/dL (74-106); Potassium 3.8 mmol/L (3.5-5.1); Protein, Total 7.3 g/dL (6.4-8.2); Sodium Level 139 mmol/L (136-145); Thyroid Stim Hormone (TSH) 0.07 uIU/mL (0.358-3.74); Uric Acid 6.2 mg/dL (2.6-6.0)
== END | disposition home or self-care (01) ==
LOC: VSLAB 15:14
PROVIDERS: PCP Nurse Practitioner Family; Visit Provider Nurse Practitioner Family
DX: N20.2 Calculus of kidney with calculus of ureter (principal); E11.9 Type 2 diabetes mellitus without complications; I10 Essential (primary) hypertension
CPT/HCPCS: 36415; 80053; 84443; 84550; 85027

== ENCOUNTER 2024-02-23 15:30 | Outpatient (RCR) | payer OTHER, SELFPAY ==
[2024-01-25 00:47] VITALS: BP 106/40; PULSE 74; RESP 18; TEMP 35.9; BMI 54.1
[2024-01-26 13:08] VITALS: BP 120/43; PULSE 74; RESP 18; TEMP 36.2; BMI 54.1
--- NOTE | 2024-01-26 16:17 | PCM.WC.HP ---
History of Present Illness Date of Service: 01/26/24 Chief Complaint: Surgical wound dehiscence of the right below-knee amputation stump incision History of Wound: This is a 63-year-old morbidly obese female with multiple pre-existing medical conditions. She is a longstanding diabetic and has been poorly controlled. She suffers from diabetic peripheral neuropathy. She developed a right Charcot foot deformity, with collapse of her right arch. Her condition resulted in a right below-knee amputation which was performed at [facility] by Dr. Narayan on October 19, 2023. The patient had a relatively uncomplicated postoperative course. She was transferred to the [facility] rehabilitation unit, where she continued to convalesce for several weeks. Several weeks postoperatively, Dr. Damon's staff removed the patient's surgical luisana, and the patient subsequently developed a dehiscence. She was referred to the [facility] for management of her right below-knee amputation stump incisional dehiscence. The patient had been using Neosporin and gauze topically. She had also been using a Coban wrap and has been fitted with a stump production stage manager by [employer]. The patient's multiple pre-existing medical conditions are listed elsewhere. Of note, she underwent right breast needle biopsy on November 26, 2023, which was indicative of invasive ductal carcinoma. She is under the care of other providers for management of this recent diagnosis, including her surgeon, Dr. Knapp. Laboratory results have been obtained dated December 03, 2023, with results as follows: Sodium 139, potassium 4.0, chloride 106, BUN 21, creatinine 1.21, glucose 120, calcium 9.1, total bilirubin 0.60, AST 23, ALT 29, alkaline phosphatase 103, total protein 7.1, albumin 3.7. FOR[facility]LY [facility] Medical History Tinea cruris Non-pressure chronic ulcer of right calf with fat layer exposed Wears glasses Post-menopausal Cancer Anxiety Open wound Thyroid disease Insulin dependent diabetes mellitus Uses wheelchair Fatty liver High cholesterol Dietary restriction Non-smoker History of edema History of echocardiogram History of stress test Cardiology follow-up encounter Surgical wound dehiscence Right leg swelling History of endometrial cancer Rheumatoid arthritis Diverticulosis Chronic renal failure, stage 3 (moderate) Pulmonary hypertension GERD (gastroesophageal reflux disease) Hyperlipidemia History of kidney stones Breast cancer in female Morbid obesity with BMI of 50.0-59.9, adult Hydronephrosis Ureteral calculus Charcot ankle Diabetic neuropathy Morbid obesity with BMI of 50.0-59.9, adult Diverticulosis Diabetes mellitus, type 2 Chronic renal failure (CRF), stage 3a Anemia Rheumatoid arthritis Chronic pain CPAP (continuous positive airway pressure) dependence Pulmonary hypertension BRITT (obstructive sleep apnea) Thyromegaly Hx of supraventricular tachycardia Nephrolithiasis Rosacea Fatty liver External hemorrhoid GERD without esophagitis Benign essential HTN Bilateral carpal tunnel syndrome Hyperlipidemia Low vitamin B12 level Multinodular goiter Tubular adenoma Adenocarcinoma of endometrium Home Medications ?Medication ?Instructions ?Recorded ?Last Taken ?Type aspirin 81 mg tablet,delayed 81 mg PO DAILY Heart health 01/11/16 12/22/23 History release cetirizine 10 mg capsule 10 mg PO DAILY Allergies 01/11/16 Unknown History metoprolol succinate 100 mg 100 mg PO DAILY BP 01/11/16 07/03/17 History tablet,extended release 24 hr multivitamin 1 ea PO DAILY Supplement 01/11/16 Unknown History omeprazole 40 mg capsule,delayed 40 mg PO DAILY GERD 01/11/16 07/03/17 History release simvastatin 20 mg tablet 20 mg PO QHS Cholestrol 01/11/16 Unknown History cyanocobalamin (vitamin B-12) 1,000 mcg PO DAILY Supplement 07/02/17 Unknown History 1,000 mcg sublingual tablet hydroxychloroquine 200 mg tablet 200 mg PO BID Platelets 04/28/18 Unknown History (Plaquenil) pregabalin 150 mg capsule (Lyrica) 150 mg PO QHS Nerve pain 06/14/18 Unknown History ferrous sulfate 325 mg (65 mg 325 mg PO DAILY supplement 04/25/20 Unknown History iron) tablet (Feosol) allopurinol 100 mg tablet 100 mg PO DAILY #30 tabs 11/18/23 Unknown Rx ascorbic acid (vitamin C) 500 mg 1,000 mg (2 x 500 mg) PO DAILY #30 11/18/23 Unknown Rx tablet tabs calcium carbonate (Oyster Shell 500 mg PO BREAKFAST #30 tabs 11/18/23 Unknown Rx Calcium 500) insulin lispro 100 unit/mL 3 unit (0.03 mL) subcut TID PRN 11/18/23 Unknown Rx subcutaneous pen elevated BS #15 mL insulin regular hum U-500 conc 500 See Rx Instructions .Route 11/18/23 Unknown Rx unit/mL(3 mL) subcut pen .COMPLEX Blood sugar 30 days #5 pens pregabalin 100 mg capsule (Lyrica) 100 mg PO BID #60 caps 11/19/23 Unknown Rx blood sugar diagnostic (OneTouch #100 ea 12/03/23 Unknown Rx Ultra Test strips) blood-glucose sensor (Dexcom G6 #9 ea 12/03/23 Unknown Rx Sensor device) blood-glucose transmitter (Dexcom #1 ea 12/03/23 Unknown Rx G6 Transmitter device) bupropion HCl 300 mg 24 hr tablet, 300 mg PO DAILY #90 tabs 12/03/23 Unknown Rx extended release levothyroxine 300 mcg tablet 300 mcg PO DAILY #30 tabs 12/03/23 Unknown Rx losartan 50 mg tablet (Cozaar) 50 mg PO DAILY #90 tabs 12/03/23 Unknown Rx OneTouch Delica Plus Lancet 33 #100 ea 12/04/23 Unknown Rx gauge (lancets) blood sugar diagnostic (OneTouch #100 ea 12/04/23 Unknown Rx Ultra Test strips) buspirone 5 mg tablet 5 mg PO TID #90 tabs 12/11/23 Unknown Rx alprazolam 0.5 mg tablet (Xanax) 0.5 mg PO TID PRN PRN panic attack 12/25/23 Unknown History fiber 1 cap PO DAILY 12/25/23 Unknown History oxycodone 5 mg capsule 5 mg PO Q6H PRN PRN pain 12/25/23 Unknown History anastrozole 1 mg tablet (Arimidex) 1 mg PO DAILY #90 tabs 01/14/24 Unknown Rx clotrimazole-betamethasone 1 applic topical BID 01/23/24 Unknown History %-0.05 % topical cream nitrofurantoin 100 mg PO Q12 #14 CAPSULES 01/23/24 Unknown Rx monohydrate/macrocrystals 100 mg capsule nystatin 100,000 unit/gram topical topical BID 01/23/24 Unknown History ointment nystatin 100,000 unit/gram topical 1 applic topical BID 10 days #30 01/23/24 Unknown Rx powder (Klayesta) grams Allergy/AdvReac Type Severity Reaction Status Date / Time No Known Allergies Allergy Verified 01/23/24 08:55 Family History Mother Ovarian cancer Hypertension Arthritis Uterine cancer Fibrocystic disease of breast Hypothyroid Father , Age 86-CHF Hypertension Arthritis Diverticulitis of colon Depression CAD (coronary artery disease) Sister Hypertension Depression CVA (cerebral vascular accident) Fibrocystic disease of breast Diabetes Bleeding disorder Portal hypertension Surgical History Hx of cystoscopy Hx of total thyroidectomy History of tonsillectomy History of carpal tunnel release History of cardiac radiofrequency ablation History of total abdominal hysterectomy and bilateral salpingo-oophorectomy History of below-knee amputation S/P cystoscopy with ureteral stent placement History of right below knee amputation History of hand surgery H/O cardiac radiofrequency ablation (02/15/13) History of right and left heart catheterization (07/03/17) H/O colonoscopy H/O abdominal hysterectomy H/O carpal tunnel repair Previous section History of tonsillectomy Hx of cholecystectomy Surgical menopause Social History Smoking Status: Never smoker second hand exposure: No alcohol intake: never substance use type: does not use caffeine: No Vital Signs Vital Signs Vital Signs: 01/26/24 13:08 Temperature 97.2 F L Temperature Source Temporal Pulse Rate 74 Respiratory Rate 18 Blood Pressure 120/43 L Blood Pressure Mean 68 Blood Pressure Source Monitor Blood Pressure Position Semi-Fowlers Blood Pressure Location Left Arm Oxygen Delivery Method Room Air Weight Weight: 335 lb Body Mass Index (BMI) 54.1 Physical Exam Narrative ECOG 2, seen in a wheelchair Const alert, oriented x3 and no apparent distress Constitutional Narrative: The patient is morbidly obese. Her BMI is 54.1. General Appearance: cooperative, comfortable, well kempt and well developed Orientation / Consciousness: awake, oriented to person, oriented to place and oriented to time Exam Limitations: no limitations Nutritional Appearance: morbidly obese HEENT normocephalic and head/scalp atraumatic Head and Scalp: normal to inspection Nose: external nose normal External Ear: external ears normal Eyes EOMs intact bilaterally General Eye: normal appearance of both eyes Neck full ROM Resp normal respiratory effort, normal air movement, no retractions and no use of accessory muscles Effort and Inspection: able to speak in complete sentences Skin Skin Narrative: The patient has a severe erythematous rash in her perineal area and in the crural regions of the groin. Wound Narrative: A right below-knee amputation is noted. The dehiscent wounds on the right BKA incision persists. There are 2 wounds, 1 of which is large, and the other of which is significantly smaller. Dimensions are documented elsewhere. There has been noticeable decrease in the size of each wound, with a decrease in depth as well. Each of the wounds is pink and healthy in appearance, with a small amount of bioburden. There is no sign of infection or cellulitis. Neuro oriented x3, CN's II-XII intact bilaterally, moves all extremities, no focal motor deficits and no sensory deficits noted Sensorium / Orientation: awake, alert, oriented to person, oriented to place and oriented to time Speech: speech normal Psych mental status grossly normal and thought process normal Attitude: calm and engaged Activity / Motor Behavior: appropriate eye contact Speech: normal speech Thought Process: normal thought process Attention / Concentration: attention grossly intact Debridement Note Debridement Note Wound debrided: Dehiscent right below-knee amputation stump incision Laterality: Right Type of Debridement: Excisional debridement Anesthesia Used: 5% Lidocaine Gel Depth: Down to and including healthy tissue and in the subcutaneous layer Percentage of wound debrided: 100 Instrument Used: 3mm curette Tissue Removed: Bioburden and nonviable tissue Severity: Fat Layer Exposed Amount of bleeding with debridement: Mild Bleeding Controlled with: Compression and gauze Patient tolerated procedure: Patient tolerated procedure well Post-Debridement Measurements and Additional Note: Post-Debridement Measurements/Treatment - Nurse 1 - General Ulcer Assessment Start: 01/26/24 13:06 Freq: Status: Active Protocol: [email or web address] Activity Type Activity Date Activity User E-sign Co-sign Detail Recorded Client Recorded Date Recorded By Document 01/26/24 13:08 KW z 01/26/24 13:20 KW 01/26/24 13:08 - Today's Visit Information Type of service Follow-up Visit (Physician/MACHINE [employer] ) Arrival Mode Wheelchair Accompanied by Patient Identification Verified (Name & Yes ) Height and Weight Body Mass Index (BMI) 54.1 BMI Classification Obese Vital Signs Temperature (97.8 F-99.1 F) 97.2 F L Temperature Source Temporal Pulse Rate (60-100) 74 Pulse Location Monitor Respiratory Rate (12-18) 18 Respiratory rate source Observation Oxygen Delivery Method Room Air Blood Pressure (90/60-120/80) 120/43 L Blood Pressure Mean 68 Source Monitor Position Semi-Fowlers Blood Pressure Location Left Arm History Since Last Visit- (Skip if this is Patient's initial visit) Have you changed medications since your No last visit? Any new allergies or adverse reactions No Had a fall/change in ADL's that may No increase risk of falls Signs or symptoms of abuse and/or No neglect since last visit Have you been in the hospital since your Yes last visit? Has dressing in place as prescribed Yes Has compression in place as prescribed Yes Has offloadiing in place as prescribed Yes Experienced any changes in pain level or No management Left Footwear Regular Shoe Right Footwear No Footwear Pain Scale: 0-10 Numeric Is Patient Pain Free? Yes WC - Nurse 1 - General Ulcer Measurement Start: 01/26/24 13:06 Freq: Status: Active Protocol: Activity Type Activity Date Activity User E-sign Co-sign Detail Recorded Client Recorded Date Recorded By Document 01/26/24 13:08 KW z 01/26/24 13:20 KW 01/26/24 13:08 Wound Center Nurse 1 #2inferior medial stump -Current Size (cm) - Length 2.5 -Current Size (cm) - Width 3.5 -Current Size (cm) - Depth 0.1 -Total Square Cm 8.75 -Date of Last Picture (Recall this 01/26/24 field) -Exudate Amt Small -Exudate Type Serosanguineous -Wound Margin Distinct, Outline Attached -Granulation Amt Large (67-100%) -Granulation Quality Red -Necrosis Amt Small (1-33%) -Necrotic Tissue Type Adherent Slough -Texture (Fadumo-wound Skin Appearance) Assessed -Moisture (Fadumo-wound Skin Appearance) Assessed -Color (Fadumo-wound Skin Appearance) Assessed -Temperature (Fadumo-wound Skin No Abnormality Appearance) (Pt Warm) -Tenderness on Palpation (Fadumo-wound No Skin Appearance) -Ulcer Cleansing Soap and Water -Foul Odor after Cleansing No -Anesthetic Used 5% Lidocaine Gel #1 RT superior stump -Current Size (cm) - Length 0.2 -Current Size (cm) - Width 0.2 -Current Size (cm) - Depth 0.1 -Total Square Cm 0.04 -Date of Last Picture (Recall this 01/26/24 field) -Exudate Amt Small -Exudate Type Serosanguineous -Wound Margin Distinct, Outline Attached -Necrosis Amt Large (67-100%) -Necrotic Tissue Type Adherent Slough -Texture (Fadumo-wound Skin Appearance) Assessed -Moisture (Fadumo-wound Skin Appearance) Assessed -Color (Fadumo-wound Skin Appearance) Assessed -Temperature (Fadumo-wound Skin No Abnormality Appearance) (Pt Warm) -Tenderness on Palpation (Fadumo-wound No Skin Appearance) -Ulcer Cleansing Soap and Water -Foul Odor after Cleansing No -Anesthetic Used 5% Lidocaine Gel WC - Nurse 2 - General Ulcer CM Notes Start: 01/26/24 13:06 Freq: Status: Active Protocol: Activity Type Activity Date Activity User E-sign Co-sign Detail Recorded Client Recorded Date Recorded By Document 01/26/24 13:32 JF [id number] 01/26/24 13:38 AREN 01/26/24 13:32 Wound Center Nurse 2 #2inferior medial stump -Time 13:33 -Correct Patient Yes -Correct Side, Site, Position Yes -Correct Procedure Yes -Procedure Performed Yes -Type of Procedure Debridement -Clinical Debridement Subcutaneous -Tissue Removed Subcutaneous -Post Debridement (cm) - Length 0.4 -Post Debridement (cm) - Width 0.5 -Post Debridement (cm) - Depth 0 -Total Square (Post) (cm) 0.20 -Area of Debridement (cm) - Length 0.4 -Area of Debridement (cm) - Width 0.5 -Total Square (Area) (cm) 0.20 -Tunneling No -Undermining/Tunneling No -Circular Undermining No -Wound/Ulcer Outcome Not Healed -Ulcer Cleansing Rinsed/ Irrigated with Saline -Foul Odor after Cleansing No -Bioengineered Tissue No -Bleeding Controlled with Pressure -Treatment Response Procedure Tolerated Well -Offloading No -Debridement - Subq, 1st 20sq cm No #1 RT superior stump -Time 13:38 -Correct Patient Yes -Correct Side, Site, Position Yes -Correct Procedure Yes -Procedure Performed Yes -Type of Procedure Debridement -Clinical Debridement Subcutaneous -Tissue Removed Subcutaneous -Post Debridement (cm) - Length 2.4 -Post Debridement (cm) - Width 3.3 -Post Debridement (cm) - Depth 0.2 -Total Square (Post) (cm) 7.92 -Area of Debridement (cm) - Length 2.4 -Area of Debridement (cm) - Width 3.3 -Total Square (Area) (cm) 7.92 -Tunneling No -Undermining/Tunneling No -Circular Undermining No -Wound/Ulcer Outcome Not Healed -Ulcer Cleansing Rinsed/ Irrigated with Saline -Foul Odor after Cleansing No -Bioengineered Tissue No -Bleeding Controlled with Pressure -Treatment Response Procedure Tolerated Well -Offloading No -Debridement - Subq, 1st 20sq cm Yes Pain Scale: 0-10 Numeric Is Patient Pain Free? Yes - Nurse 3 - General Ulcer D/C NN Start: 01/26/24 13:06 Freq: Status: Active Protocol: Activity Type Activity Date Activity User E-sign Co-sign Detail Recorded Client Recorded Date Recorded By Document 01/26/24 13:55 [facility] [id number] 01/26/24 13:56 [facility] 01/26/24 13:55 Wound Care Center Nurse 3 #2inferior medial stump -Ulcer Cleansing Rinsed/ Irrigated with Saline -Foul Odor after Cleansing No -Negative Pressure Wound Therapy Continue -Setting (mmHg) 150 -Negative Pressure is Continuous -NPWT Application Charge NPWT & Debridement (nc ) #1 RT superior stump -Ulcer Cleansing Rinsed/ Irrigated with Saline -Foul Odor after Cleansing No -Negative Pressure Wound Therapy Continue -Setting (mmHg) 150 -Negative Pressure is Continuous -NPWT Application Charge NPWT - Multiple Locations Treatment Response Procedure Tolerated Well Pain Scale: 0-10 Numeric Is Patient Pain Free? Yes - Visit Discharge Discharge Condition Stable Ambulatory Status Walker, Wheelchair Transportation Private Auto Accompanied by Facility Type Home Health Charges/Coding Procedures Integumentary [id number]: [id number] Padmini subq tissue 20 sq cm/< 114x: [id number] Exc tr-ext b9+nery 1.1-2 cm Assessment/Plan Assessment/Plan (1) Non-pressure chronic ulcer of right calf with fat layer exposed: CODE(S): L97.212 - Non-pressure chronic ulcer of right calf with fat layer exposed (2) Surgical wound dehiscence: CODE(S): T81.31XA - Disruption of external operation (surgical) wound, not elsewhere classified, initial encounter QUALIFIERS: Encounter type: subsequent encounter Qualified Code(s): T81.31XD - Disruption of external operation (surgical) wound, not elsewhere classified, subsequent encounter (3) History of right below knee amputation: CODE(S): Z89.511 - Acquired absence of right leg below knee (4) Tinea cruris: CODE(S): B35.6 - Tinea cruris (5) Morbid obesity with BMI of 50.0-59.9, adult: CODE(S): E66.01 - Morbid (severe) obesity due to excess calories; Z68.43 - Body mass index [BMI] 50.0-59.9, adult (6) Diabetes mellitus, type 2: CODE(S): E11.9 - Type 2 diabetes mellitus without complications QUALIFIERS: Diabetes mellitus group home insulin use: with intermediate teacher use Diabetes mellitus complication status: with kidney complications Diabetes mellitus complication detail: with chronic kidney disease Chronic kidney disease stage: stage 3 (moderate) Chronic kidney disease stage 3 subtype: stage 3a (GFR 45-59) Qualified Code(s): E11.22 - Type 2 diabetes mellitus with diabetic chronic kidney disease; N18.31 - Chronic kidney disease, stage 3a; Z79.4 - retirement (current) use of insulin (7) Below knee amputation: CODE(S): S88.119A - 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, unspecified lower leg, initial encounter QUALIFIERS: Encounter type: sequela Laterality: bilateral Qualified Code(s): S88.111S - 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, right lower leg, sequela; S88.112S - 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, left lower leg, sequela (8) Hypothyroid: CODE(S): E03.9 - Hypothyroidism, unspecified QUALIFIERS: Hypothyroidism type: acquired Qualified Code(s): E03.9 - Hypothyroidism, unspecified (9) Benign essential HTN: CODE(S): I10 - Essential (primary) hypertension (10) Breast cancer in female: CODE(S): C50.919 - Malignant neoplasm of unspecified site of unspecified female breast QUALIFIERS: Breast location: unspecified site of breast Estrogen receptor status: positive Laterality: right Qualified Code(s): C50.911 - Malignant neoplasm of unspecified site of right female breast; Z17.0 - Estrogen receptor positive status [ER+] (11) History of kidney stones: CODE(S): Z87.442 - Personal history of urinary calculi (12) Physical debility: CODE(S): R53.81 - Other malaise (13) Hx of supraventricular tachycardia: CODE(S): Z86.79 - Personal history of other diseases of the circulatory system (14) Hyperlipidemia: CODE(S): E78.5 - Hyperlipidemia, unspecified (15) GERD (gastroesophageal reflux disease): CODE(S): K21.9 - Gastro-esophageal reflux disease without esophagitis (16) Pulmonary hypertension: CODE(S): I27.20 - Pulmonary hypertension, unspecified (17) Chronic renal failure, stage 3 (moderate): CODE(S): N18.30 - Chronic kidney disease, stage 3 unspecified (18) Diverticulosis: CODE(S): K57.90 - Diverticulosis of intestine, part unspecified, without perforation or abscess without bleeding (19) Rheumatoid arthritis: CODE(S): M06.9 - Rheumatoid arthritis, unspecified (20) History of endometrial cancer: CODE(S): Z85.42 - Personal history of malignant neoplasm of other parts of uterus (21) History of total abdominal hysterectomy and bilateral salpingo-oophorectomy: CODE(S): Z90.710 - Acquired absence of both cervix and uterus; Z90.722 - Acquired absence of ovaries, bilateral; Z90.79 - Acquired absence of other genital organ(s) (22) History of cardiac radiofrequency ablation: CODE(S): Z98.890 - Other specified postprocedural states (23) History of carpal tunnel release: CODE(S): Z98.890 - Other specified postprocedural states (24) History of tonsillectomy: CODE(S): Z90.89 - Acquired absence of other organs (25) Right leg swelling: CODE(S): M79.89 - Other specified soft tissue disorders PLAN: Plan This is a 63-year-old female with multiple pre-existing medical problems, who presented with a 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 She underwent right below-knee amputation on October 19, 2023 at [facility]. Shortly following the removal of her surgical luisana, several weeks following surgery, she developed a surgical wound dehiscence. She was referred to the [facility] for definitive management. 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 The patient has been advised to elevate her right lower extremity to heart level as much as possible. She admits to sleeping on a flat mattress at night. Elevation will help to minimize swelling. We are to continue the use of negative pressure wound therapy. The wound VAC will be changed twice weekly, with the assistance of home health nursing care. The wound VAC setting is 150 mmHg with continuous suction. Improvement has been observed since initiation of negative pressure wound therapy. Optimizing nutritional intake and glycemic control have been discussed. A nutritional supplement, such as Glucerna, would be appropriate. Wound cultures were obtained several weeks ago, and were positive for Enterobacter cloacae, Staphylococcus epidermidis, Enterococcus faecalis, Staphylococcus lugdunensis, anaerobic cocci, and Bacteroides fragilis. The patient was placed on Bactrim double strength twice daily orally for 10 days, and amoxicillin 500 mg p.o. orally twice daily for 10 days. The courses of antibiotics have been completed. The overt signs of infection have resolved, and the wound remains pink and healthy with evidence of active granulation tissue. The patient developed severe tinea cruris in the perineal region and groin, for which she has been using nystatin powder and cornstarch, with improvement noted. The patient is to follow-up in 1 week for reassessment. The patient's right breast surgery, by Dr. Knapp, has been postponed at the discretion of her surgeon. In the interim, the patient indicates that her oncologist has implemented hormonal therapy. The decision to proceed with breast surgery will be deferred to Dr. Knapp. Total time: 24 minutes
--- NOTE | 2024-01-27 09:51 | WC ---
PHOTO RIGHT STUMP 01/26/2024
[2024-02-02 15:07] VITALS: BP 128/48; PULSE 78; RESP 20; TEMP 36.8; BMI 54.1
--- NOTE | 2024-02-02 20:40 | PCM.WC.HP ---
History of Present Illness Date of Service: 02/02/24 Chief Complaint: Surgical wound dehiscence of the right below-knee amputation stump incision History of Wound: This is a 63-year-old morbidly obese female with multiple pre-existing medical conditions. She is a longstanding diabetic and has been poorly controlled. She suffers from diabetic peripheral neuropathy. She developed a right Charcot foot deformity, with collapse of her right arch. Her condition resulted in a right below-knee amputation which was performed at [facility] by Dr. Narayan on October 19, 2023. The patient had a relatively uncomplicated postoperative course. She was transferred to the [facility] rehabilitation unit, where she continued to convalesce for several weeks. Several weeks postoperatively, Dr. Damon's staff removed the patient's surgical luisana, and the patient subsequently developed a dehiscence. She was referred to the [facility] for management of her right below-knee amputation stump incisional dehiscence. The patient had been using Neosporin and gauze topically. She had also been using a Coban wrap and has been fitted with a stump health care aide by [employer]. The patient's multiple pre-existing medical conditions are listed elsewhere. Of note, she underwent right breast needle biopsy on November 26, 2023, which was indicative of invasive ductal carcinoma. She is under the care of other providers for management of this recent diagnosis, including her surgeon, Dr. Knapp. Laboratory results have been obtained, dated December 03, 2023, with results as follows: Sodium 139, potassium 4.0, chloride 106, BUN 21, creatinine 1.21, glucose 120, calcium 9.1, total bilirubin 0.60, AST 23, ALT 29, alkaline phosphatase 103, total protein 7.1, albumin 3.7. [facility] Medical History Tinea cruris Non-pressure chronic ulcer of right calf with fat layer exposed Wears glasses Post-menopausal Cancer Anxiety Open wound Thyroid disease Insulin dependent diabetes mellitus Uses wheelchair Fatty liver High cholesterol Dietary restriction Non-smoker History of edema History of echocardiogram History of stress test Cardiology follow-up encounter Surgical wound dehiscence Right leg swelling History of endometrial cancer Rheumatoid arthritis Diverticulosis Chronic renal failure, stage 3 (moderate) Pulmonary hypertension GERD (gastroesophageal reflux disease) Hyperlipidemia History of kidney stones Breast cancer in female Morbid obesity with BMI of 50.0-59.9, adult Hydronephrosis Ureteral calculus Charcot ankle Diabetic neuropathy Morbid obesity with BMI of 50.0-59.9, adult Diverticulosis Diabetes mellitus, type 2 Chronic renal failure (CRF), stage 3a Anemia Rheumatoid arthritis Chronic pain CPAP (continuous positive airway pressure) dependence Pulmonary hypertension BRITT (obstructive sleep apnea) Thyromegaly Hx of supraventricular tachycardia Nephrolithiasis Rosacea Fatty liver External hemorrhoid GERD without esophagitis Benign essential HTN Bilateral carpal tunnel syndrome Hyperlipidemia Low vitamin B12 level Multinodular goiter Tubular adenoma Adenocarcinoma of endometrium Home Medications ?Medication ?Instructions ?Recorded ?Last Taken ?Type aspirin 81 mg tablet,delayed 81 mg PO DAILY Heart health 01/11/16 12/22/23 History release cetirizine 10 mg capsule 10 mg PO DAILY Allergies 01/11/16 Unknown History metoprolol succinate 100 mg 100 mg PO DAILY BP 01/11/16 07/03/17 History tablet,extended release 24 hr multivitamin 1 ea PO DAILY Supplement 01/11/16 Unknown History omeprazole 40 mg capsule,delayed 40 mg PO DAILY GERD 01/11/16 07/03/17 History release simvastatin 20 mg tablet 20 mg PO QHS Cholestrol 01/11/16 Unknown History cyanocobalamin (vitamin B-12) 1,000 mcg PO DAILY Supplement 07/02/17 Unknown History 1,000 mcg sublingual tablet hydroxychloroquine 200 mg tablet 200 mg PO BID Platelets 04/28/18 Unknown History (Plaquenil) pregabalin 150 mg capsule (Lyrica) 150 mg PO QHS Nerve pain 06/14/18 Unknown History ferrous sulfate 325 mg (65 mg 325 mg PO DAILY supplement 04/25/20 Unknown History iron) tablet (Feosol) allopurinol 100 mg tablet 100 mg PO DAILY #30 tabs 11/18/23 Unknown Rx ascorbic acid (vitamin C) 500 mg 1,000 mg (2 x 500 mg) PO DAILY #30 11/18/23 Unknown Rx tablet tabs calcium carbonate (Oyster Shell 500 mg PO BREAKFAST #30 tabs 11/18/23 Unknown Rx Calcium 500) insulin lispro 100 unit/mL 3 unit (0.03 mL) subcut TID PRN 11/18/23 Unknown Rx subcutaneous pen elevated BS #15 mL insulin regular hum U-500 conc 500 See Rx Instructions .Route 11/18/23 Unknown Rx unit/mL(3 mL) subcut pen .COMPLEX Blood sugar 30 days #5 pens pregabalin 100 mg capsule (Lyrica) 100 mg PO BID #60 caps 11/19/23 Unknown Rx blood sugar diagnostic (OneTouch #100 ea 12/03/23 Unknown Rx Ultra Test strips) blood-glucose sensor (Dexcom G6 #9 ea 12/03/23 Unknown Rx Sensor device) blood-glucose transmitter (Dexcom #1 ea 12/03/23 Unknown Rx G6 Transmitter device) bupropion HCl 300 mg 24 hr tablet, 300 mg PO DAILY #90 tabs 12/03/23 Unknown Rx extended release levothyroxine 300 mcg tablet 300 mcg PO DAILY #30 tabs 12/03/23 Unknown Rx losartan 50 mg tablet (Cozaar) 50 mg PO DAILY #90 tabs 12/03/23 Unknown Rx OneTouch Delica Plus Lancet 33 #100 ea 12/04/23 Unknown Rx gauge (lancets) blood sugar diagnostic (OneTouch #100 ea 12/04/23 Unknown Rx Ultra Test strips) buspirone 5 mg tablet 5 mg PO TID #90 tabs 12/11/23 Unknown Rx alprazolam 0.5 mg tablet (Xanax) 0.5 mg PO TID PRN PRN panic attack 12/25/23 Unknown History fiber 1 cap PO DAILY 12/25/23 Unknown History oxycodone 5 mg capsule 5 mg PO Q6H PRN PRN pain 12/25/23 Unknown History anastrozole 1 mg tablet (Arimidex) 1 mg PO DAILY #90 tabs 01/14/24 Unknown Rx clotrimazole-betamethasone 1 applic topical BID 01/23/24 Unknown History %-0.05 % topical cream nitrofurantoin 100 mg PO Q12 #14 CAPSULES 01/23/24 Unknown Rx monohydrate/macrocrystals 100 mg capsule nystatin 100,000 unit/gram topical topical BID 01/23/24 Unknown History ointment nystatin 100,000 unit/gram topical 1 applic topical BID 10 days #30 01/23/24 Unknown Rx powder (Klayesta) grams Allergy/AdvReac Type Severity Reaction Status Date / Time No Known Allergies Allergy Verified 01/23/24 08:55 Family History Mother Ovarian cancer Hypertension Arthritis Uterine cancer Fibrocystic disease of breast Hypothyroid Father , Age 86-CHF Hypertension Arthritis Diverticulitis of colon Depression CAD (coronary artery disease) Sister Hypertension Depression CVA (cerebral vascular accident) Fibrocystic disease of breast Diabetes Bleeding disorder Portal hypertension Surgical History Hx of cystoscopy Hx of total thyroidectomy History of tonsillectomy History of carpal tunnel release History of cardiac radiofrequency ablation History of total abdominal hysterectomy and bilateral salpingo-oophorectomy History of below-knee amputation S/P cystoscopy with ureteral stent placement History of right below knee amputation History of hand surgery H/O cardiac radiofrequency ablation (02/15/13) History of right and left heart catheterization (07/03/17) H/O colonoscopy H/O abdominal hysterectomy H/O carpal tunnel repair Previous section History of tonsillectomy Hx of cholecystectomy Surgical menopause Social History Smoking Status: Never smoker second hand exposure: No alcohol intake: never substance use type: does not use caffeine: No Vital Signs Vital Signs Vital Signs: 02/02/24 15:07 Temperature 98.2 F Temperature Source Temporal Pulse Rate 78 Respiratory Rate 20 H Blood Pressure 128/48 H Blood Pressure Mean 74 Blood Pressure Source Monitor Weight Weight: 335 lb Body Mass Index (BMI) 54.1 Physical Exam Narrative ECOG 2, seen in a wheelchair Const alert, oriented x3 and no apparent distress Constitutional Narrative: The patient is morbidly obese. Her BMI is 54.1. General Appearance: cooperative, comfortable, well kempt and well developed Orientation / Consciousness: awake, oriented to person, oriented to place and oriented to time Exam Limitations: no limitations Nutritional Appearance: morbidly obese HEENT normocephalic and head/scalp atraumatic Head and Scalp: normal to inspection Nose: external nose normal External Ear: external ears normal Eyes EOMs intact bilaterally General Eye: normal appearance of both eyes Neck full ROM Resp normal respiratory effort, normal air movement, no retractions and no use of accessory muscles Effort and Inspection: able to speak in complete sentences Skin Skin Narrative: The patient has a severe erythematous rash in her perineal area and in the crural regions of the groin. Wound Narrative: A right below-knee amputation is noted. One dehiscent wound on the right BKA incision persists. This wound demonstrates significant improvement, with a decrease in size and depth. Dimensions are documented elsewhere. The wound is pink and healthy in appearance, with a small amount of bioburden. There is evidence of peripheral epithelialization. There is no sign of infection or cellulitis. Neuro oriented x3, CN's II-XII intact bilaterally, moves all extremities, no focal motor deficits and no sensory deficits noted Sensorium / Orientation: awake, alert, oriented to person, oriented to place and oriented to time Speech: speech normal Psych mental status grossly normal and thought process normal Attitude: calm and engaged Activity / Motor Behavior: appropriate eye contact Speech: normal speech Thought Process: normal thought process Attention / Concentration: attention grossly intact Debridement Note Debridement Note Wound debrided: Dehiscent right below-knee amputation stump incision Laterality: Right Type of Debridement: Excisional debridement Anesthesia Used: 5% Lidocaine Gel Depth: Down to and including healthy tissue and in the subcutaneous layer Percentage of wound debrided: 100 Instrument Used: 5mm curette Tissue Removed: Bioburden and nonviable tissue Severity: Fat Layer Exposed Amount of bleeding with debridement: Mild Bleeding Controlled with: Compression and gauze Patient tolerated procedure: Patient tolerated procedure well Post-Debridement Measurements and Additional Note: Post-Debridement Measurements/Treatment - Nurse 1 - General Ulcer Assessment Start: 01/26/24 13:06 Freq: Status: Active Protocol: JIA.[email or web address] Activity Type Activity Date Activity User E-sign Co-sign Detail Recorded Client Recorded Date Recorded By Document 01/26/24 13:08 KW z 01/26/24 13:20 KW Document 02/02/24 15:07 DL [email or web address] 02/02/24 15:18 DL 01/26/24 02/02/24 13:08 15:07 - Today's Visit Information Type of service Follow-up Visit Follow-up Visit (Physician/LOADING UNIT OPERATOR SEATING (Physician/LOADING UNIT OPERATOR SEATING ) ) Arrival Mode Wheelchair Ambulatory, Wheelchair Transfer Assistance None Accompanied by Patient Identification Verified (Name & Yes Yes ) Patient Requires Transmission-Based No Precautions Finger Stick Blood Sugar(mg/dl) (if 175 indicated): Blood Sugar Stated by Patient Height and Weight Body Mass Index (BMI) 54.1 54.1 BMI Classification Obese Obese Vital Signs Temperature (97.8 F-99.1 F) 97.2 F L 98.2 F Temperature Source Temporal Temporal Pulse Rate (60-100) 74 78 Pulse Location Monitor Respiratory Rate (12-18) 18 20 H Respiratory rate source Observation Observation Oxygen Delivery Method Room Air Blood Pressure (90/60-120/80) 120/43 L 128/48 H Blood Pressure Mean 68 74 Source Monitor Monitor Position Semi-Fowlers Blood Pressure Location Left Arm History Since Last Visit- (Skip if this is Patient's initial visit) Have you changed medications since your No No last visit? Any new allergies or adverse reactions No No Had a fall/change in ADL's that may No No increase risk of falls Signs or symptoms of abuse and/or No No neglect since last visit Have you been in the hospital since your Yes No last visit? Has dressing in place as prescribed Yes Yes Has compression in place as prescribed Yes Yes Has offloadiing in place as prescribed Yes Yes Experienced any changes in pain level or No No management Left Footwear Regular Shoe Right Footwear No Footwear No Footwear Pain Scale: 0-10 Numeric Is Patient Pain Free? Yes Yes WC - Nurse 1 - General Ulcer Measurement Start: 01/26/24 13:06 Freq: Status: Active Protocol: Activity Type Activity Date Activity User E-sign Co-sign Detail Recorded Client Recorded Date Recorded By Document 01/26/24 13:08 KW z 01/26/24 13:20 KW Document 02/02/24 15:07 DL [id number] 02/02/24 15:18 DL 01/26/24 02/02/24 13:08 15:07 Wound Center Nurse 1 #2inferior medial stump -Current Size (cm) - Length 2.5 0.2 -Current Size (cm) - Width 3.5 0.2 -Current Size (cm) - Depth 0.1 0.2 -Total Square Cm 8.75 0.04 -Date of Last Picture (Recall this 01/26/24 field) -Exudate Amt Small Small -Exudate Type Serosanguineous Serosanguineous -Wound Margin Distinct, Distinct, Outline Outline Attached Attached -Granulation Amt Large (67-100%) Small (1-33%) -Granulation Quality Red Red -Necrosis Amt Small (1-33%) None Present (0 %) -Necrotic Tissue Type Adherent Slough -Structure Exposed N/A -Texture (Fadumo-wound Skin Appearance) Assessed Scarring -Moisture (Fadumo-wound Skin Appearance) Assessed No Abnormality -Color (Fadumo-wound Skin Appearance) Assessed No Abnormality -Temperature (Fadumo-wound Skin No Abnormality No Abnormality Appearance) (Pt Warm) (Pt Warm) -Tenderness on Palpation (Fadumo-wound No Skin Appearance) -Ulcer Cleansing Soap and Water Soap and Water -Foul Odor after Cleansing No No -Anesthetic Used 5% Lidocaine 5% Lidocaine Gel Gel #1 RT superior stump -Current Size (cm) - Length 0.2 2.7 -Current Size (cm) - Width 0.2 2.7 -Current Size (cm) - Depth 0.1 0.1 -Total Square Cm 0.04 7.29 -Date of Last Picture (Recall this 01/26/24 field) -Exudate Amt Small Medium -Exudate Type Serosanguineous Serosanguineous -Wound Margin Distinct, Distinct, Outline Outline Attached Attached -Granulation Amt Large (67-100%) -Granulation Quality Red -Necrosis Amt Large (67-100%) None Present (0 %) -Necrotic Tissue Type Adherent Slough -Structure Exposed N/A -Texture (Fadumo-wound Skin Appearance) Assessed Scarring -Moisture (Fadumo-wound Skin Appearance) Assessed No Abnormality -Color (Fadumo-wound Skin Appearance) Assessed No Abnormality -Temperature (Fadumo-wound Skin No Abnormality No Abnormality Appearance) (Pt Warm) (Pt Warm) -Tenderness on Palpation (Fadumo-wound No Skin Appearance) -Ulcer Cleansing Soap and Water Soap and Water -Foul Odor after Cleansing No No -Anesthetic Used 5% Lidocaine 5% Lidocaine Gel Gel WC - Nurse 2 - General Ulcer CM Notes Start: 01/26/24 13:06 Freq: Status: Active Protocol: Activity Type Activity Date Activity User E-sign Co-sign Detail Recorded Client Recorded Date Recorded By Document 01/26/24 13:32 JF [id number] 01/26/24 13:38 JF Document 02/02/24 15:58 JF 000 02/02/24 16:03 JF 01/26/24 02/02/24 13:32 15:58 Wound Center Nurse 2 #2inferior medial stump -Time 13:33 15:58 -Correct Patient Yes No -Correct Side, Site, Position Yes No -Correct Procedure Yes No -Procedure Performed Yes No -Type of Procedure Debridement -Clinical Debridement Subcutaneous -Tissue Removed Subcutaneous -Post Debridement (cm) - Length 0.4 0.1 -Post Debridement (cm) - Width 0.5 0.1 -Post Debridement (cm) - Depth 0 0.1 -Total Square (Post) (cm) 0.20 0.01 -Area of Debridement (cm) - Length 0.4 0.1 -Area of Debridement (cm) - Width 0.5 0.1 -Total Square (Area) (cm) 0.20 0.01 -Tunneling No No -Undermining/Tunneling No No -Circular Undermining No No -Wound/Ulcer Outcome Not Healed Not Healed -Ulcer Cleansing Rinsed/ Rinsed/ Irrigated with Irrigated with Saline Saline -Foul Odor after Cleansing No No -Bioengineered Tissue No No -Bleeding Controlled with Pressure Pressure -Treatment Response Procedure Procedure Tolerated Well Tolerated Well -Offloading No No -Debridement - Subq, 1st 20sq cm No No #1 RT superior stump -Time 13:38 15:59 -Correct Patient Yes Yes -Correct Side, Site, Position Yes Yes -Correct Procedure Yes Yes -Procedure Performed Yes Yes -Type of Procedure Debridement Debridement -Clinical Debridement Subcutaneous Subcutaneous -Tissue Removed Subcutaneous Subcutaneous -Post Debridement (cm) - Length 2.4 2.4 -Post Debridement (cm) - Width 3.3 2.4 -Post Debridement (cm) - Depth 0.2 0.2 -Total Square (Post) (cm) 7.92 5.76 -Area of Debridement (cm) - Length 2.4 2.4 -Area of Debridement (cm) - Width 3.3 2.4 -Total Square (Area) (cm) 7.92 5.76 -Tunneling No No -Undermining/Tunneling No No -Circular Undermining No No -Wound/Ulcer Outcome Not Healed Not Healed -Ulcer Cleansing Rinsed/ Rinsed/ Irrigated with Irrigated with Saline Saline -Foul Odor after Cleansing No No -Bioengineered Tissue No No -Bleeding Controlled with Pressure Pressure -Treatment Response Procedure Procedure Tolerated Well Tolerated Well -Offloading No No -Debridement - Subq, 1st 20sq cm Yes Yes Pain Scale: 0-10 Numeric Is Patient Pain Free? Yes Yes WC - Nurse 3 - General Ulcer D/C NN Start: 01/26/24 13:06 Freq: Status: Active Protocol: Activity Type Activity Date Activity User E-sign Co-sign Detail Recorded Client Recorded Date Recorded By Document 01/26/24 13:55 BMF [email or web address] 01/26/24 13:56 BMF Document 02/02/24 16:24 DL [email or web address] 02/02/24 16:27 DL 01/26/24 02/02/24 13:55 16:24 Wound Care Center Nurse 3 #2inferior medial stump -Ulcer Cleansing Rinsed/ Rinsed/ Irrigated with Irrigated with Saline Saline -Foul Odor after Cleansing No No -Negative Pressure Wound Therapy Continue -Setting (mmHg) 150 -Negative Pressure is Continuous -Primary Dressing Covered/Secured with Dry Gauze,Other -Other Covering Vac drape -NPWT Application Charge NPWT & Debridement (nc ) #1 RT superior stump -Ulcer Cleansing Rinsed/ Soap and Water Irrigated with Saline -Foul Odor after Cleansing No No -Negative Pressure Wound Therapy Continue Continue -Setting (mmHg) 150 150 -Negative Pressure is Continuous Continuous -NPWT Application Charge NPWT - Multiple NPWT & Locations Debridement (nc ) -Wound Comment(s) dressing applied per Yaz Swain Right -Compression Wrap Jozef Wrap Treatment Response Procedure Procedure Tolerated Well Tolerated Well Pain Scale: 0-10 Numeric Is Patient Pain Free? Yes Yes WC - Visit Discharge Discharge Condition Stable Stable Ambulatory Status Walker, Ambulatory Wheelchair Transportation Private Auto Private Auto Accompanied by Facility Type Home Health Home Health Orders Sent Yes Charges/Coding Procedures Integumentary [id number]: [id number] Padmini subq tissue 20 sq cm/< Assessment/Plan Assessment/Plan (1) Non-pressure chronic ulcer of right calf with fat layer exposed: CODE(S): L97.212 - Non-pressure chronic ulcer of right calf with fat layer exposed (2) Surgical wound dehiscence: CODE(S): T81.31XA - Disruption of external operation (surgical) wound, not elsewhere classified, initial encounter QUALIFIERS: Encounter type: subsequent encounter Qualified Code(s): T81.31XD - Disruption of external operation (surgical) wound, not elsewhere classified, subsequent encounter (3) History of right below knee amputation: CODE(S): Z89.511 - Acquired absence of right leg below knee (4) Tinea cruris: CODE(S): B35.6 - Tinea cruris (5) Morbid obesity with BMI of 50.0-59.9, adult: CODE(S): E66.01 - Morbid (severe) obesity due to excess calories; Z68.43 - Body mass index [BMI] 50.0-59.9, adult (6) Diabetes mellitus, type 2: CODE(S): E11.9 - Type 2 diabetes mellitus without complications QUALIFIERS: Diabetes mellitus chcf insulin use: with moth 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 use Diabetes mellitus complication status: with kidney complications Diabetes mellitus complication detail: with chronic kidney disease Chronic kidney disease stage: stage 3 (moderate) Chronic kidney disease stage 3 subtype: stage 3a (GFR 45-59) Qualified Code(s): E11.22 - Type 2 diabetes mellitus with diabetic chronic kidney disease; N18.31 - Chronic kidney disease, stage 3a; Z79.4 - ferry terminal 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 of insulin (7) Below knee amputation: CODE(S): S88.119A - 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, unspecified lower leg, initial encounter QUALIFIERS: Encounter type: sequela Laterality: bilateral Qualified Code(s): S88.111S - 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, right lower leg, sequela; S88.112S - 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, left lower leg, sequela (8) Hypothyroid: CODE(S): E03.9 - Hypothyroidism, unspecified QUALIFIERS: Hypothyroidism type: acquired Qualified Code(s): E03.9 - Hypothyroidism, unspecified (9) Benign essential HTN: CODE(S): I10 - Essential (primary) hypertension (10) Breast cancer in female: CODE(S): C50.919 - Malignant neoplasm of unspecified site of unspecified female breast QUALIFIERS: Breast location: unspecified site of breast Estrogen receptor status: positive Laterality: right Qualified Code(s): C50.911 - Malignant neoplasm of unspecified site of right female breast; Z17.0 - Estrogen receptor positive status [ER+] (11) History of kidney stones: CODE(S): Z87.442 - Personal history of urinary calculi (12) Physical debility: CODE(S): R53.81 - Other malaise (13) Hx of supraventricular tachycardia: CODE(S): Z86.79 - Personal history of other diseases of the circulatory system (14) Hyperlipidemia: CODE(S): E78.5 - Hyperlipidemia, unspecified (15) GERD (gastroesophageal reflux disease): CODE(S): K21.9 - Gastro-esophageal reflux disease without esophagitis (16) Pulmonary hypertension: CODE(S): I27.20 - Pulmonary hypertension, unspecified (17) Chronic renal failure, stage 3 (moderate): CODE(S): N18.30 - Chronic kidney disease, stage 3 unspecified (18) Diverticulosis: CODE(S): K57.90 - Diverticulosis of intestine, part unspecified, without perforation or abscess without bleeding (19) Rheumatoid arthritis: CODE(S): M06.9 - Rheumatoid arthritis, unspecified (20) History of endometrial cancer: CODE(S): Z85.42 - Personal history of malignant neoplasm of other parts of uterus (21) History of total abdominal hysterectomy and bilateral salpingo-oophorectomy: CODE(S): Z90.710 - Acquired absence of both cervix and uterus; Z90.722 - Acquired absence of ovaries, bilateral; Z90.79 - Acquired absence of other genital organ(s) (22) History of cardiac radiofrequency ablation: CODE(S): Z98.890 - Other specified postprocedural states (23) History of carpal tunnel release: CODE(S): Z98.890 - Other specified postprocedural states (24) History of tonsillectomy: CODE(S): Z90.89 - Acquired absence of other organs (25) Right leg swelling: CODE(S): M79.89 - Other specified soft tissue disorders PLAN: Plan This is a 63-year-old female with multiple pre-existing medical problems, who presented with a 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 She underwent right below-knee amputation on October 19, 2023 at [facility]. Upon removal of her surgical luisana, several weeks following surgery, she developed a surgical wound dehiscence. She was referred to the [facility] for definitive management. 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 The patient has been advised to elevate her right lower extremity to heart level as much as possible. She admits to sleeping on a flat mattress at night. Elevation will help to minimize swelling. We are to continue the use of negative pressure wound therapy. The wound VAC will be reapplied today. The wound VAC setting is 150 mmHg with continuous suction. Improvement has been observed since initiation of negative pressure wound therapy. So as to expedite the healing process, and lieu of pending surgical mastectomy, we are to seek preauthorization for the use of a TheraSkin skin substitute to be used in tandem with negative pressure wound therapy. Optimizing nutritional intake and glycemic control have been discussed. A nutritional supplement, such as Glucerna, would be appropriate. Wound cultures were obtained several weeks ago, and were positive for Enterobacter cloacae, Staphylococcus epidermidis, Enterococcus faecalis, Staphylococcus lugdunensis, anaerobic cocci, and Bacteroides fragilis. The patient was placed on Bactrim double strength twice daily orally for 10 days, and amoxicillin 500 mg p.o. orally twice daily for 10 days. The courses of antibiotics have been completed. The overt signs of infection have resolved, and the wound remains pink and healthy with evidence of active granulation tissue. The patient developed severe tinea cruris in the perineal region and groin, for which she has been using nystatin powder and cornstarch, with improvement noted. The patient is to follow-up in 1 week for reassessment. The patient's right breast surgery, by Dr. Knapp, has been postponed at the discretion of her surgeon. In the interim, the patient indicates that her oncologist has implemented hormonal therapy. The decision to proceed with breast surgery will be deferred to Dr. Knapp. Total time: 25 minutes
--- NOTE | 2024-02-04 08:48 | WC ---
PHOTO 01/26/2024 RIGHT STUMP
[2024-02-09 13:39] VITALS: BP 144/57; PULSE 76; RESP 18; TEMP 36.4; BMI 54.1
--- NOTE | 2024-02-09 17:10 | HP.PCM_ITS ---
History of Present Illness Date of Service: 02/09/24 Chief Complaint: Surgical wound dehiscence of the right below-knee amputation stump incision History of Wound: This is a 63-year-old morbidly obese female with multiple pre- existing medical conditions. She is a longstanding diabetic and has been poorly controlled. She suffers from diabetic peripheral neuropathy. She developed a right Charcot foot deformity, with collapse of her right arch. Her condition resulted in a right below-knee amputation which was performed at [facility] by Dr. Narayan on October 19, 2023. The patient had a relatively uncomplicated postoperative course. She was transferred to the [facility] rehabilitation unit, where she continued to convalesce for several weeks. Several weeks postoperatively, Dr. Damon's staff removed the patient's surgical luisana, and the patient subsequently developed a dehiscence. She was referred to the [facility] for management of her right below-knee amputation stump incisional dehiscence. The patient had been using Neosporin and gauze topically. She had also been using a Coban wrap and has been fitted with a stump store operations manager by [employer]. The patient's multiple pre-existing medical conditions are listed elsewhere. Of note, she underwent right breast needle biopsy on November 26, 2023, which was indicative of invasive ductal carcinoma. She is under the care of other providers for management of this recent diagnosis, including her surgeon, Dr. Knapp. Laboratory results have been obtained, dated December 03, 2023, with results as follows: Sodium 139, potassium 4.0, chloride 106, BUN 21, creatinine 1.21, glucose 120, calcium 9.1, total bilirubin 0.60, AST 23, ALT 29, alkaline phosphatase 103, total protein 7.1, albumin 3.7. 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 layer exposed Wears glasses Post-menopausal Cancer Anxiety Open wound Thyroid disease Insulin dependent diabetes mellitus Uses wheelchair Fatty liver High cholesterol Dietary restriction Non-smoker History of edema History of echocardiogram History of stress test Cardiology follow-up encounter Surgical wound dehiscence Right leg swelling History of endometrial cancer Rheumatoid arthritis Diverticulosis Chronic renal failure, stage 3 (moderate) Pulmonary hypertension GERD (gastroesophageal reflux disease) Hyperlipidemia History of kidney stones Breast cancer in female Morbid obesity with BMI of 50.0-59.9, adult Hydronephrosis Ureteral calculus Charcot ankle Diabetic neuropathy Morbid obesity with BMI of 50.0-59.9, adult Diverticulosis Diabetes mellitus, type 2 Chronic renal failure (CRF), stage 3a Anemia Rheumatoid arthritis Chronic pain CPAP (continuous positive airway pressure) dependence Pulmonary hypertension BRITT (obstructive sleep apnea) Thyromegaly Hx of supraventricular tachycardia Nephrolithiasis Rosacea Fatty liver External hemorrhoid GERD without esophagitis Benign essential HTN Bilateral carpal tunnel syndrome Hyperlipidemia Low vitamin B12 level Multinodular goiter Tubular adenoma Adenocarcinoma of endometrium Home Medications ?Medication ?Instructions ?Recorded ?Last Taken ?Type aspirin 81 mg tablet,delayed 81 mg PO DAILY Heart health 01/11/16 12/22/23 History release cetirizine 10 mg capsule 10 mg PO DAILY Allergies 01/11/16 Unknown History metoprolol succinate 100 mg 100 mg PO DAILY BP 01/11/16 07/03/17 History tablet,extended release 24 hr multivitamin 1 ea PO DAILY Supplement 01/11/16 Unknown History omeprazole 40 mg capsule,delayed 40 mg PO DAILY GERD 01/11/16 07/03/17 History release simvastatin 20 mg tablet 20 mg PO QHS Cholestrol 01/11/16 Unknown History cyanocobalamin (vitamin B-12) 1,000 mcg PO DAILY Supplement 07/02/17 Unknown History 1,000 mcg sublingual tablet hydroxychloroquine 200 mg tablet 200 mg PO BID Platelets 04/28/18 Unknown History (Plaquenil) pregabalin 150 mg capsule (Lyrica) 150 mg PO QHS Nerve pain 06/14/18 Unknown History ferrous sulfate 325 mg (65 mg 325 mg PO DAILY supplement 04/25/20 Unknown History iron) tablet (Feosol) allopurinol 100 mg tablet 100 mg PO DAILY #30 tabs 11/18/23 Unknown Rx ascorbic acid (vitamin C) 500 mg 1,000 mg (2 x 500 mg) PO DAILY #30 11/18/23 Unknown Rx tablet tabs calcium carbonate (Oyster Shell 500 mg PO BREAKFAST #30 tabs 11/18/23 Unknown Rx Calcium 500) insulin regular hum U-500 conc 500 See Rx Instructions .Route 11/18/23 Unknown Rx unit/mL(3 mL) subcut pen .COMPLEX Blood sugar 30 days #5 pens pregabalin 100 mg capsule (Lyrica) 100 mg PO BID #60 caps 11/19/23 Unknown Rx blood sugar diagnostic (OneTouch #100 ea 12/03/23 Unknown Rx Ultra Test strips) blood-glucose sensor (Dexcom G6 #9 ea 12/03/23 Unknown Rx Sensor device) blood-glucose transmitter (Dexcom #1 ea 12/03/23 Unknown Rx G6 Transmitter device) bupropion HCl 300 mg 24 hr tablet, 300 mg PO DAILY #90 tabs 12/03/23 Unknown Rx extended release levothyroxine 300 mcg tablet 300 mcg PO DAILY #30 tabs 12/03/23 Unknown Rx losartan 50 mg tablet (Cozaar) 50 mg PO DAILY #90 tabs 12/03/23 Unknown Rx OneTouch Delica Plus Lancet 33 #100 ea 12/04/23 Unknown Rx gauge (lancets) blood sugar diagnostic (OneTouch #100 ea 12/04/23 Unknown Rx Ultra Test strips) buspirone 5 mg tablet 5 mg PO TID #90 tabs 12/11/23 Unknown Rx alprazolam 0.5 mg tablet (Xanax) 0.5 mg PO TID PRN PRN panic attack 12/25/23 Unknown History fiber 1 cap PO DAILY 12/25/23 Unknown History oxycodone 5 mg capsule 5 mg PO Q6H PRN PRN pain 12/25/23 Unknown History anastrozole 1 mg tablet (Arimidex) 1 mg PO DAILY #90 tabs 01/14/24 Unknown Rx clotrimazole-betamethasone 1 applic topical BID 01/23/24 Unknown History %-0.05 % topical cream nitrofurantoin 100 mg PO Q12 #14 CAPSULES 01/23/24 Unknown Rx monohydrate/macrocrystals 100 mg capsule nystatin 100,000 unit/gram topical topical BID 01/23/24 Unknown History ointment nystatin 100,000 unit/gram topical 1 applic topical BID 10 days #30 01/23/24 Unknown Rx powder (Klayesta) grams insulin lispro 100 unit/mL 3 unit (0.03 mL) subcut TID PRN 02/04/24 Unknown Rx subcutaneous pen elevated BS #15 mL Allergy/AdvReac Type Severity Reaction Status Date / Time No Known Allergies Allergy Verified 01/23/24 08:55 Family History Mother Ovarian cancer Hypertension Arthritis Uterine cancer Fibrocystic disease of breast Hypothyroid Father , Age 86-CHF Hypertension Arthritis Diverticulitis of colon Depression CAD (coronary artery disease) Sister Hypertension Depression CVA (cerebral vascular accident) Fibrocystic disease of breast Diabetes Bleeding disorder Portal hypertension Surgical History Hx of cystoscopy Hx of total thyroidectomy History of tonsillectomy History of carpal tunnel release History of cardiac radiofrequency ablation History of total abdominal hysterectomy and bilateral salpingo-oophorectomy History of below-knee amputation S/P cystoscopy with ureteral stent placement History of right below knee amputation History of hand surgery H/O cardiac radiofrequency ablation (02/15/13) History of right and left heart catheterization (07/03/17) H/O colonoscopy H/O abdominal hysterectomy H/O carpal tunnel repair Previous section History of tonsillectomy Hx of cholecystectomy Surgical menopause Social History Smoking Status: Never smoker second hand exposure: No alcohol intake: never substance use type: does not use caffeine: No Vital Signs Vital Signs Vital Signs: 02/09/24 13:39 Temperature 97.6 F L Temperature Source Temporal Pulse Rate 76 Respiratory Rate 18 Blood Pressure 144/57 H Blood Pressure Mean 86 Blood Pressure Source Monitor Blood Pressure Position Semi-Fowlers Blood Pressure Location Left Arm Weight Weight: 335 lb Body Mass Index (BMI) 54.1 Physical Exam Narrative ECOG 2, seen in a wheelchair Const alert, oriented x3 and no apparent distress Constitutional Narrative: The patient is morbidly obese. Her BMI is 54.1. General Appearance: cooperative, comfortable, well kempt and well developed Orientation / Consciousness: awake, oriented to person, oriented to place and oriented to time Exam Limitations: no limitations Nutritional Appearance: morbidly obese HEENT normocephalic and head/scalp atraumatic Head and Scalp: normal to inspection Nose: external nose normal External Ear: external ears normal Eyes EOMs intact bilaterally General Eye: normal appearance of both eyes Neck full ROM Resp normal respiratory effort, normal air movement, no retractions and no use of accessory muscles Effort and Inspection: able to speak in complete sentences Skin Skin Narrative: The patient has a severe erythematous rash in her perineal area and in the crural regions of the groin. Wound Narrative: A right below-knee amputation is noted. One dehiscent wound on the right BKA incision persists. This wound demonstrates significant improvement, with a decrease in size and depth. Dimensions are documented elsewhere. The wound is pink and healthy in appearance, with a small amount of bioburden. There is evidence of peripheral epithelialization. There is no sign of infection or cellulitis. Neuro oriented x3, CN's II-XII intact bilaterally, moves all extremities, no focal motor deficits and no sensory deficits noted Sensorium / Orientation: awake, alert, oriented to person, oriented to place and oriented to time Speech: speech normal Psych mental status grossly normal and thought process normal Attitude: calm and engaged Activity / Motor Behavior: appropriate eye contact Speech: normal speech Thought Process: normal thought process Attention / Concentration: attention grossly intact Debridement Note Debridement Note Wound debrided: Dehiscent right below-knee amputation stump incision Laterality: Right Type of Debridement: Excisional debridement Anesthesia Used: 5% Lidocaine Gel Depth: Down to and including healthy tissue and in the subcutaneous layer Percentage of wound debrided: 100 Instrument Used: 5mm curette Tissue Removed: Bioburden Severity: Fat Layer Exposed Amount of bleeding with debridement: Mild Bleeding Controlled with: Compression and gauze Patient tolerated procedure: Patient tolerated procedure well Post-Debridement Measurements and Additional Note: Post-Debridement Measurements/Treatment - Nurse 1 - General Ulcer Assessment Start: 01/26/24 13:06 Freq: Status: Active Protocol: MATT Activity Type Activity Date Activity User E-sign Co-sign Detail Recorded Client Recorded Date Recorded By Document 01/26/24 13:08 KW z 01/26/24 13:20 KW Document 02/02/24 15:07 DL [id number] 02/02/24 15:18 DL Document 02/09/24 13:39 RB wound 02/09/24 13:44 RB 01/26/24 02/02/24 02/09/24 13:08 15:07 13:39 - Today's Visit Information Type of service Follow-up Visit Follow-up Visit Follow-up Visit (Physician/[employer] (Physician/[employer] (Physician/[employer] ) ) ) Arrival Mode Wheelchair Ambulatory, Wheelchair Wheelchair Transfer Assistance None None Accompanied by Patient Identification Verified (Name & Yes Yes Yes ) Patient Requires Transmission-Based No No Precautions Finger Stick Blood Sugar(mg/dl) (if 175 indicated): Blood Sugar Stated by Patient Height and Weight Body Mass Index (BMI) 54.1 54.1 54.1 BMI Classification Obese Obese Obese Vital Signs Temperature (97.8 F-99.1 F) 97.2 F L 98.2 F 97.6 F L Temperature Source Temporal Temporal Temporal Pulse Rate (60-100) 74 78 76 Pulse Location Monitor Monitor Respiratory Rate (12-18) 18 20 H 18 Respiratory rate source Observation Observation Observation Oxygen Delivery Method Room Air Blood Pressure (90/60-120/80) 120/43 L 128/48 H 144/57 H Blood Pressure Mean 68 74 86 Source Monitor Monitor Monitor Position Semi-Fowlers Semi-Fowlers Blood Pressure Location Left Arm Left Arm History Since Last Visit- (Skip if this is Patient's initial visit) Have you changed medications since your No No No last visit? Any new allergies or adverse reactions No No No Had a fall/change in ADL's that may No No No increase risk of falls Signs or symptoms of abuse and/or No No No neglect since last visit Have you been in the hospital since your Yes No No last visit? Has dressing in place as prescribed Yes Yes Yes Has compression in place as prescribed Yes Yes Yes Has offloadiing in place as prescribed Yes Yes No Experienced any changes in pain level or No No No management Left Footwear Regular Shoe Right Footwear No Footwear No Footwear Pain Scale: 0-10 Numeric Is Patient Pain Free? Yes Yes Yes WC - Nurse 1 - General Ulcer Measurement Start: 01/26/24 13:06 Freq: Status: Active Protocol: Activity Type Activity Date Activity User E-sign Co-sign Detail Recorded Client Recorded Date Recorded By Document 01/26/24 13:08 KW z 01/26/24 13:20 KW Document 02/02/24 15:07 DL [id number] 02/02/24 15:18 DL Document 02/09/24 13:39 RB wound 02/09/24 13:44 RB 01/26/24 02/02/24 02/09/24 13:08 15:07 13:39 Wound Center Nurse 1 #2inferior medial stump -Combined with other wound No -Current Size (cm) - Length 2.5 0.2 0 -Current Size (cm) - Width 3.5 0.2 0 -Current Size (cm) - Depth 0.1 0.2 0 -Total Square Cm 8.75 0.04 0 -Date of Last Picture (Recall this 01/26/24 field) -Photo Taken Yes -Epithelialization Large 67-100% -Exudate Amt Small Small -Exudate Type Serosanguineous Serosanguineous -Wound Margin Distinct, Distinct, Outline Outline Attached Attached -Granulation Amt Large (67-100%) Small (1-33%) -Granulation Quality Red Red -Necrosis Amt Small (1-33%) None Present (0 %) -Necrotic Tissue Type Adherent Slough -Structure Exposed N/A -Texture (Fadumo-wound Skin Appearance) Assessed Scarring -Moisture (Fadumo-wound Skin Appearance) Assessed No Abnormality -Color (Fadumo-wound Skin Appearance) Assessed No Abnormality -Temperature (Fadumo-wound Skin No Abnormality No Abnormality Appearance) (Pt Warm) (Pt Warm) -Tenderness on Palpation (Fadumo-wound No Skin Appearance) -Ulcer Cleansing Soap and Water Soap and Water -Foul Odor after Cleansing No No -Anesthetic Used 5% Lidocaine 5% Lidocaine Gel Gel #1 RT superior stump -Combined with other wound No -Current Size (cm) - Length 0.2 2.7 2.4 -Current Size (cm) - Width 0.2 2.7 3.3 -Current Size (cm) - Depth 0.1 0.1 0.1 -Total Square Cm 0.04 7.29 7.92 -Date of Last Picture (Recall this 01/26/24 field) -Photo Taken Yes -Tunneling No -Undermining/Tunneling No -Circular Undermining No -Exudate Amt Small Medium Large -Exudate Type Serosanguineous Serosanguineous Serosanguineous -Wound Margin Distinct, Distinct, Distinct, Outline Outline Outline Attached Attached Attached -Granulation Amt Large (67-100%) Medium (34-66%) -Granulation Quality Red [place] -Slough/Fibrin Yes -Necrosis Amt Large (67-100%) None Present (0 Medium (34-66%) %) -Necrotic Tissue Type Adherent Slough Adherent Slough -Structure Exposed N/A N/A -Texture (Fadumo-wound Skin Appearance) Assessed Scarring Assessed -Moisture (Fadumo-wound Skin Appearance) Assessed No Abnormality Assessed -Color (Fadumo-wound Skin Appearance) Assessed No Abnormality Assessed -Temperature (Fadumo-wound Skin No Abnormality No Abnormality No Abnormality Appearance) (Pt Warm) (Pt Warm) (Pt Warm) -Tenderness on Palpation (Fadumo-wound No No Skin Appearance) -Ulcer Cleansing Soap and Water Soap and Water Wound Cleanser -Foul Odor after Cleansing No No No -Anesthetic Used 5% Lidocaine 5% Lidocaine 5% Lidocaine Gel Gel Gel WC - Nurse 2 - General Ulcer CM Notes Start: 01/26/24 13:06 Freq: Status: Active Protocol: Activity Type Activity Date Activity User E-sign Co-sign Detail Recorded Client Recorded Date Recorded By Document 01/26/24 13:32 [id number] 01/26/24 13:38 Document 02/02/24 15:58 JF 000 02/02/24 16:03 JF Document 02/09/24 14:08 DS 1 02/09/24 14:15 DS 01/26/24 02/02/24 02/09/24 13:32 15:58 14:08 Wound Center Nurse 2 #2inferior medial stump -Time 13:33 15:58 14:00 -Correct Patient Yes No Yes -Correct Side, Site, Position Yes No Yes -Correct Procedure Yes No Yes -Procedure Performed Yes No Yes -Type of Procedure Debridement Debridement -Clinical Debridement Subcutaneous Subcutaneous -Tissue Removed Subcutaneous Subcutaneous -Post Debridement (cm) - Length 0.4 0.1 0.1 -Post Debridement (cm) - Width 0.5 0.1 0.1 -Post Debridement (cm) - Depth 0 0.1 0.1 -Total Square (Post) (cm) 0.20 0.01 0.01 -Area of Debridement (cm) - Length 0.4 0.1 0.1 -Area of Debridement (cm) - Width 0.5 0.1 0.1 -Total Square (Area) (cm) 0.20 0.01 0.01 -Tunneling No No No -Undermining/Tunneling No No No -Circular Undermining No No No -Wound/Ulcer Outcome Not Healed Not Healed Not Healed -Ulcer Cleansing Rinsed/ Rinsed/ Irrigated with Irrigated with Saline Saline -Foul Odor after Cleansing No No -Bioengineered Tissue No No -Bleeding Controlled with Pressure Pressure Pressure -Treatment Response Procedure Procedure Procedure Tolerated Well Tolerated Well Tolerated Well -Offloading No No -Debridement - Subq, 1st 20sq cm No No No -Theraskin - 100TSXS (6 SQ CM) (per sq 6 cm) #1 RT superior stump -Time 13:38 15:59 14:00 -Correct Patient Yes Yes Yes -Correct Side, Site, Position Yes Yes Yes -Correct Procedure Yes Yes Yes -Procedure Performed Yes Yes Yes -Type of Procedure Debridement Debridement Debridement -Clinical Debridement Subcutaneous Subcutaneous Subcutaneous -Tissue Removed Subcutaneous Subcutaneous Subcutaneous -Post Debridement (cm) - Length 2.4 2.4 2.4 -Post Debridement (cm) - Width 3.3 2.4 2.8 -Post Debridement (cm) - Depth 0.2 0.2 0.2 -Total Square (Post) (cm) 7.92 5.76 6.72 -Area of Debridement (cm) - Length 2.4 2.4 2.4 -Area of Debridement (cm) - Width 3.3 2.4 2.8 -Total Square (Area) (cm) 7.92 5.76 6.72 -Tunneling No No No -Undermining/Tunneling No No No -Circular Undermining No No No -Wound/Ulcer Outcome Not Healed Not Healed Not Healed -Ulcer Cleansing Rinsed/ Rinsed/ Irrigated with Irrigated with Saline Saline -Foul Odor after Cleansing No No -Bioengineered Tissue No No -Type of Bioengineered Tissue Theraskin -Bleeding Controlled with Pressure Pressure Pressure -Treatment Response Procedure Procedure Procedure Tolerated Well Tolerated Well Tolerated Well -Offloading No No -Debridement - Subq, 1st 20sq cm Yes Yes No -Theraskin - 100TSXS (6 SQ CM) (per sq 6 cm) Pain Scale: 0-10 Numeric Is Patient Pain Free? Yes Yes Yes WC - Nurse 3 - General Ulcer D/C NN Start: 01/26/24 13:06 Freq: Status: Active Protocol: Activity Type Activity Date Activity User E-sign Co-sign Detail Recorded Client Recorded Date Recorded By Document 01/26/24 13:55 BMF 10..25.7 01/26/24 13:56 BMF Document 02/02/24 16:24 DL ..25.7 02/02/24 16:27 DL Document 02/09/24 14:34 KW ; 02/09/24 14:35 KW 01/26/24 02/02/24 02/09/24 13:55 16:24 14:34 Wound Care Center Nurse 3 #2inferior medial stump -Ulcer Cleansing Rinsed/ Rinsed/ Irrigated with Irrigated with Saline Saline -Foul Odor after Cleansing No No -Negative Pressure Wound Therapy Continue -Setting (mmHg) 150 -Negative Pressure is Continuous -Primary Dressing Covered/Secured with Dry Gauze,Other -Other Covering Vac drape -NPWT Application Charge NPWT & Debridement (nc ) #1 RT superior stump -Ulcer Cleansing Rinsed/ Soap and Water Irrigated with Saline -Foul Odor after Cleansing No No -Negative Pressure Wound Therapy Continue Continue Continue -Setting (mmHg) 150 150 150 -Negative Pressure is Continuous Continuous Continuous -NPWT Application Charge NPWT - Multiple NPWT & NPWT & Locations Debridement (nc Debridement (nc ) ) -Wound Comment(s) dressing applied per Yaz Swain Right -Compression Wrap Jozef Wrap Jozef Wrap Treatment Response Procedure Procedure Tolerated Well Tolerated Well Pain Scale: 0-10 Numeric Is Patient Pain Free? Yes Yes Yes WC - Visit Discharge Discharge Condition Stable Stable Stable Ambulatory Status Walker, Ambulatory Wheelchair Wheelchair Transportation Private Auto Private Auto Private Auto Accompanied by Medication Reconcilliation completed & No provided to patient/care provider Clinical Summary of Care Provided Yes Facility Type Home Health Home Health Orders Sent Yes
--- NOTE | 2024-02-09 17:30 | HP.PCM_ITS ---
History of Present Illness Date of Service: 02/09/24 Chief Complaint: Surgical wound dehiscence of the right below-knee amputation stump incision History of Wound: This is a 63-year-old morbidly obese female with multiple pre- existing medical conditions. She is a longstanding diabetic and has been poorly controlled. She suffers from diabetic peripheral neuropathy. She developed a right Charcot foot deformity, with collapse of her right arch. Her condition resulted in a right below-knee amputation which was performed at [facility] by Dr. Narayan on October 19, 2023. The patient had a relatively uncomplicated postoperative course. She was transferred to the [facility] rehabilitation unit, where she continued to convalesce for several weeks. Several weeks postoperatively, Dr. Damon's staff removed the patient's surgical luisana, and the patient subsequently developed a dehiscence. She was referred to the [facility] for management of her right below-knee amputation stump incisional dehiscence. The patient had been using Neosporin and gauze topically. She had also been using a Coban wrap and has been fitted with a stump boiler inspector by [employer]. The patient's multiple pre-existing medical conditions are listed elsewhere. Of note, she underwent right breast needle biopsy on November 26, 2023, which was indicative of invasive ductal carcinoma. She is under the care of other providers for management of this recent diagnosis, including her surgeon, Dr. Knapp. Laboratory results have been obtained, dated December 03, 2023, with results as follows: Sodium 139, potassium 4.0, chloride 106, BUN 21, creatinine 1.21, glucose 120, calcium 9.1, total bilirubin 0.60, AST 23, ALT 29, alkaline phosphatase 103, total protein 7.1, albumin 3.7. [facility] Medical History Tinea cruris Non-pressure chronic ulcer of right calf with fat layer exposed Wears glasses Post-menopausal Cancer Anxiety Open wound Thyroid disease Insulin dependent diabetes mellitus Uses wheelchair Fatty liver High cholesterol Dietary restriction Non-smoker History of edema History of echocardiogram History of stress test Cardiology follow-up encounter Surgical wound dehiscence Right leg swelling History of endometrial cancer Rheumatoid arthritis Diverticulosis Chronic renal failure, stage 3 (moderate) Pulmonary hypertension GERD (gastroesophageal reflux disease) Hyperlipidemia History of kidney stones Breast cancer in female Morbid obesity with BMI of 50.0-59.9, adult Hydronephrosis Ureteral calculus Charcot ankle Diabetic neuropathy Morbid obesity with BMI of 50.0-59.9, adult Diverticulosis Diabetes mellitus, type 2 Chronic renal failure (CRF), stage 3a Anemia Rheumatoid arthritis Chronic pain CPAP (continuous positive airway pressure) dependence Pulmonary hypertension BRITT (obstructive sleep apnea) Thyromegaly Hx of supraventricular tachycardia Nephrolithiasis Rosacea Fatty liver External hemorrhoid GERD without esophagitis Benign essential HTN Bilateral carpal tunnel syndrome Hyperlipidemia Low vitamin B12 level Multinodular goiter Tubular adenoma Adenocarcinoma of endometrium Home Medications ?Medication ?Instructions ?Recorded ?Last Taken ?Type aspirin 81 mg tablet,delayed 81 mg PO DAILY Heart health 01/11/16 12/22/23 History release cetirizine 10 mg capsule 10 mg PO DAILY Allergies 01/11/16 Unknown History metoprolol succinate 100 mg 100 mg PO DAILY BP 01/11/16 07/03/17 History tablet,extended release 24 hr multivitamin 1 ea PO DAILY Supplement 01/11/16 Unknown History omeprazole 40 mg capsule,delayed 40 mg PO DAILY GERD 01/11/16 07/03/17 History release simvastatin 20 mg tablet 20 mg PO QHS Cholestrol 01/11/16 Unknown History cyanocobalamin (vitamin B-12) 1,000 mcg PO DAILY Supplement 07/02/17 Unknown History 1,000 mcg sublingual tablet hydroxychloroquine 200 mg tablet 200 mg PO BID Platelets 04/28/18 Unknown History (Plaquenil) pregabalin 150 mg capsule (Lyrica) 150 mg PO QHS Nerve pain 06/14/18 Unknown History ferrous sulfate 325 mg (65 mg 325 mg PO DAILY supplement 04/25/20 Unknown History iron) tablet (Feosol) allopurinol 100 mg tablet 100 mg PO DAILY #30 tabs 11/18/23 Unknown Rx ascorbic acid (vitamin C) 500 mg 1,000 mg (2 x 500 mg) PO DAILY #30 11/18/23 Unknown Rx tablet tabs calcium carbonate (Oyster Shell 500 mg PO BREAKFAST #30 tabs 11/18/23 Unknown Rx Calcium 500) insulin regular hum U-500 conc 500 See Rx Instructions .Route 11/18/23 Unknown Rx unit/mL(3 mL) subcut pen .COMPLEX Blood sugar 30 days #5 pens pregabalin 100 mg capsule (Lyrica) 100 mg PO BID #60 caps 11/19/23 Unknown Rx blood sugar diagnostic (OneTouch #100 ea 12/03/23 Unknown Rx Ultra Test strips) blood-glucose sensor (Dexcom G6 #9 ea 12/03/23 Unknown Rx Sensor device) blood-glucose transmitter (Dexcom #1 ea 12/03/23 Unknown Rx G6 Transmitter device) bupropion HCl 300 mg 24 hr tablet, 300 mg PO DAILY #90 tabs 12/03/23 Unknown Rx extended release levothyroxine 300 mcg tablet 300 mcg PO DAILY #30 tabs 12/03/23 Unknown Rx losartan 50 mg tablet (Cozaar) 50 mg PO DAILY #90 tabs 12/03/23 Unknown Rx OneTouch Delica Plus Lancet 33 #100 ea 12/04/23 Unknown Rx gauge (lancets) blood sugar diagnostic (OneTouch #100 ea 12/04/23 Unknown Rx Ultra Test strips) buspirone 5 mg tablet 5 mg PO TID #90 tabs 12/11/23 Unknown Rx alprazolam 0.5 mg tablet (Xanax) 0.5 mg PO TID PRN PRN panic attack 12/25/23 Unknown History fiber 1 cap PO DAILY 12/25/23 Unknown History oxycodone 5 mg capsule 5 mg PO Q6H PRN PRN pain 12/25/23 Unknown History anastrozole 1 mg tablet (Arimidex) 1 mg PO DAILY #90 tabs 01/14/24 Unknown Rx clotrimazole-betamethasone 1 applic topical BID 01/23/24 Unknown History %-0.05 % topical cream nitrofurantoin 100 mg PO Q12 #14 CAPSULES 01/23/24 Unknown Rx monohydrate/macrocrystals 100 mg capsule nystatin 100,000 unit/gram topical topical BID 01/23/24 Unknown History ointment nystatin 100,000 unit/gram topical 1 applic topical BID 10 days #30 01/23/24 Unknown Rx powder (Klayesta) grams insulin lispro 100 unit/mL 3 unit (0.03 mL) subcut TID PRN 02/04/24 Unknown Rx subcutaneous pen elevated BS #15 mL Allergy/AdvReac Type Severity Reaction Status Date / Time No Known Allergies Allergy Verified 01/23/24 08:55 Family History Mother Ovarian cancer Hypertension Arthritis Uterine cancer Fibrocystic disease of breast Hypothyroid Father , Age 86-CHF Hypertension Arthritis Diverticulitis of colon Depression CAD (coronary artery disease) Sister Hypertension Depression CVA (cerebral vascular accident) Fibrocystic disease of breast Diabetes Bleeding disorder Portal hypertension Surgical History Hx of cystoscopy Hx of total thyroidectomy History of tonsillectomy History of carpal tunnel release History of cardiac radiofrequency ablation History of total abdominal hysterectomy and bilateral salpingo-oophorectomy History of below-knee amputation S/P cystoscopy with ureteral stent placement History of right below knee amputation History of hand surgery H/O cardiac radiofrequency ablation (02/15/13) History of right and left heart catheterization (07/03/17) H/O colonoscopy H/O abdominal hysterectomy H/O carpal tunnel repair Previous section History of tonsillectomy Hx of cholecystectomy Surgical menopause Social History Smoking Status: Never smoker second hand exposure: No alcohol intake: never substance use type: does not use caffeine: No Vital Signs Vital Signs Vital Signs: 02/09/24 13:39 Temperature 97.6 F L Temperature Source Temporal Pulse Rate 76 Respiratory Rate 18 Blood Pressure 144/57 H Blood Pressure Mean 86 Blood Pressure Source Monitor Blood Pressure Position Semi-Fowlers Blood Pressure Location Left Arm Weight Weight: 335 lb Body Mass Index (BMI) 54.1 Physical Exam Narrative ECOG 2, seen in a wheelchair Const alert, oriented x3 and no apparent distress Constitutional Narrative: The patient is morbidly obese. Her BMI is 54.1. General Appearance: cooperative, comfortable, well kempt and well developed Orientation / Consciousness: awake, oriented to person, oriented to place and oriented to time Exam Limitations: no limitations Nutritional Appearance: morbidly obese HEENT normocephalic and head/scalp atraumatic Head and Scalp: normal to inspection Nose: external nose normal External Ear: external ears normal Eyes EOMs intact bilaterally General Eye: normal appearance of both eyes Neck full ROM Resp normal respiratory effort, normal air movement, no retractions and no use of accessory muscles Effort and Inspection: able to speak in complete sentences Skin Skin Narrative: The patient has a severe erythematous rash in her perineal area and in the crural regions of the groin. Wound Narrative: A right below-knee amputation is noted. One dehiscent wound on the right BKA incision persists. This wound demonstrates significant improvement, with a decrease in size and depth. Dimensions are documented elsewhere. The wound is pink and healthy in appearance, with a small amount of bioburden. There is evidence of peripheral epithelialization. There is no sign of infection or cellulitis. Neuro oriented x3, CN's II-XII intact bilaterally, moves all extremities, no focal motor deficits and no sensory deficits noted Sensorium / Orientation: awake, alert, oriented to person, oriented to place and oriented to time Speech: speech normal Psych mental status grossly normal and thought process normal Attitude: calm and engaged Activity / Motor Behavior: appropriate eye contact Speech: normal speech Thought Process: normal thought process Attention / Concentration: attention grossly intact Debridement Note Debridement Note Wound debrided: Dehiscent right below-knee amputation stump incision Laterality: Right Type of Debridement: Excisional debridement Anesthesia Used: 5% Lidocaine Gel Depth: Down to and including healthy tissue and in the subcutaneous layer Percentage of wound debrided: 100 Instrument Used: 5mm curette Tissue Removed: Bioburden Severity: Fat Layer Exposed Amount of bleeding with debridement: Mild Bleeding Controlled with: Compression and gauze Patient tolerated procedure: Patient tolerated procedure well Debridement Free Text: An excisional debridement was performed, and was tolerated well by the patient. Having obtained preauthorization for the use of a skin substitute, a TheraSkin allograft was selected for application today. This is the first such application of an allograft. A 1 inch x 1 inch TheraSkin allograft was selected. This is a 6.5 cm? allograft. The allograft was removed from its sterile packaging following the appropriate preparation. It was then placed in the appropriate orientation topically on the patient's dehiscent wound. The size of the allograft was appropriate, covering the entire open wound without access. 100% of the allograft was utilized. It should be noted that the allograft was fenestrated. Once in place, the allograft was secured at its periphery using Dermabond. Adaptic Touch was then placed, and secured using Steri-Strips. The Wound VAC was then carefully applied. It is to continue at 150 mmHg continuous suction, to be changed twice a week. Post-Debridement Measurements and Additional Note: Post-Debridement Measurements/Treatment WC - Nurse 1 - General Ulcer Assessment Start: 01/26/24 13:06 Freq: Status: Active Protocol: MATT Activity Type Activity Date Activity User E-sign Co-sign Detail Recorded Client Recorded Date Recorded By Document 01/26/24 13:08 KW z 01/26/24 13:20 KW Document 02/02/24 15:07 DL [id number] 02/02/24 15:18 DL Document 02/09/24 13:39 RB wound 02/09/24 13:44 RB 01/26/24 02/02/24 02/09/24 13:08 15:07 13:39 WC - Today's Visit Information Type of service Follow-up Visit Follow-up Visit Follow-up Visit (Physician/RN CASE MANAGER HOSPICE (Physician/RN CASE MANAGER HOSPICE (Physician/RN CASE MANAGER HOSPICE ) ) ) Arrival Mode Wheelchair Ambulatory, Wheelchair Wheelchair Transfer Assistance None None Accompanied by Patient Identification Verified (Name & Yes Yes Yes ) Patient Requires Transmission-Based No No Precautions Finger Stick Blood Sugar(mg/dl) (if 175 indicated): Blood Sugar Stated by Patient Height and Weight Body Mass Index (BMI) 54.1 54.1 54.1 BMI Classification Obese Obese Obese Vital Signs Temperature (97.8 F-99.1 F) 97.2 F L 98.2 F 97.6 F L Temperature Source Temporal Temporal Temporal Pulse Rate (60-100) 74 78 76 Pulse Location Monitor Monitor Respiratory Rate (12-18) 18 20 H 18 Respiratory rate source Observation Observation Observation Oxygen Delivery Method Room Air Blood Pressure (90/60-120/80) 120/43 L 128/48 H 144/57 H Blood Pressure Mean 68 74 86 Source Monitor Monitor Monitor Position Semi-Fowlers Semi-Fowlers Blood Pressure Location Left Arm Left Arm History Since Last Visit- (Skip if this is Patient's initial visit) Have you changed medications since your No No No last visit? Any new allergies or adverse reactions No No No Had a fall/change in ADL's that may No No No increase risk of falls Signs or symptoms of abuse and/or No No No neglect since last visit Have you been in the hospital since your Yes No No last visit? Has dressing in place as prescribed Yes Yes Yes Has compression in place as prescribed Yes Yes Yes Has offloadiing in place as prescribed Yes Yes No Experienced any changes in pain level or No No No management Left Footwear Regular Shoe Right Footwear No Footwear No Footwear Pain Scale: 0-10 Numeric Is Patient Pain Free? Yes Yes Yes WC - Nurse 1 - General Ulcer Measurement Start: 01/26/24 13:06 Freq: Status: Active Protocol: Activity Type Activity Date Activity User E-sign Co-sign Detail Recorded Client Recorded Date Recorded By Document 01/26/24 13:08 KW z 01/26/24 13:20 KW Document 02/02/24 15:07 DL [id number] 02/02/24 15:18 DL Document 02/09/24 13:39 RB wound 02/09/24 13:44 RB 01/26/24 02/02/24 02/09/24 13:08 15:07 13:39 Wound Center Nurse 1 #2inferior medial stump -Combined with other wound No -Current Size (cm) - Length 2.5 0.2 0 -Current Size (cm) - Width 3.5 0.2 0 -Current Size (cm) - Depth 0.1 0.2 0 -Total Square Cm 8.75 0.04 0 -Date of Last Picture (Recall this 01/26/24 field) -Photo Taken Yes -Epithelialization Large 67-100% -Exudate Amt Small Small -Exudate Type Serosanguineous Serosanguineous -Wound Margin Distinct, Distinct, Outline Outline Attached Attached -Granulation Amt Large (67-100%) Small (1-33%) -Granulation Quality Red Red -Necrosis Amt Small (1-33%) None Present (0 %) -Necrotic Tissue Type Adherent Slough -Structure Exposed N/A -Texture (Fadumo-wound Skin Appearance) Assessed Scarring -Moisture (Fadumo-wound Skin Appearance) Assessed No Abnormality -Color (Fadumo-wound Skin Appearance) Assessed No Abnormality -Temperature (Fadumo-wound Skin No Abnormality No Abnormality Appearance) (Pt Warm) (Pt Warm) -Tenderness on Palpation (Fadumo-wound No Skin Appearance) -Ulcer Cleansing Soap and Water Soap and Water -Foul Odor after Cleansing No No -Anesthetic Used 5% Lidocaine 5% Lidocaine Gel Gel #1 RT superior stump -Combined with other wound No -Current Size (cm) - Length 0.2 2.7 2.4 -Current Size (cm) - Width 0.2 2.7 3.3 -Current Size (cm) - Depth 0.1 0.1 0.1 -Total Square Cm 0.04 7.29 7.92 -Date of Last Picture (Recall this 01/26/24 field) -Photo Taken Yes -Tunneling No -Undermining/Tunneling No -Circular Undermining No -Exudate Amt Small Medium Large -Exudate Type Serosanguineous Serosanguineous Serosanguineous -Wound Margin Distinct, Distinct, Distinct, Outline Outline Outline Attached Attached Attached -Granulation Amt Large (67-100%) Medium (34-66%) -Granulation Quality Red [place] -Slough/Fibrin Yes -Necrosis Amt Large (67-100%) None Present (0 Medium (34-66%) %) -Necrotic Tissue Type Adherent Slough Adherent Slough -Structure Exposed N/A N/A -Texture (Fadumo-wound Skin Appearance) Assessed Scarring Assessed -Moisture (Fadumo-wound Skin Appearance) Assessed No Abnormality Assessed -Color (Fadumo-wound Skin Appearance) Assessed No Abnormality Assessed -Temperature (Fadumo-wound Skin No Abnormality No Abnormality No Abnormality Appearance) (Pt Warm) (Pt Warm) (Pt Warm) -Tenderness on Palpation (Fadumo-wound No No Skin Appearance) -Ulcer Cleansing Soap and Water Soap and Water Wound Cleanser -Foul Odor after Cleansing No No No -Anesthetic Used 5% Lidocaine 5% Lidocaine 5% Lidocaine Gel Gel Gel WC - Nurse 2 - General Ulcer CM Notes Start: 01/26/24 13:06 Freq: Status: Active Protocol: Activity Type Activity Date Activity User E-sign Co-sign Detail Recorded Client Recorded Date Recorded By Document 01/26/24 13:32 [id number] 01/26/24 13:38 Document 02/02/24 15:58 JF 000 02/02/24 16:03 Document 02/09/24 14:08 DS 1 02/09/24 14:15 DS 01/26/24 02/02/24 02/09/24 13:32 15:58 14:08 Wound Center Nurse 2 #2inferior medial stump -Time 13:33 15:58 14:00 -Correct Patient Yes No Yes -Correct Side, Site, Position Yes No Yes -Correct Procedure Yes No Yes -Procedure Performed Yes No Yes -Type of Procedure Debridement Debridement -Clinical Debridement Subcutaneous Subcutaneous -Tissue Removed Subcutaneous Subcutaneous -Post Debridement (cm) - Length 0.4 0.1 0.1 -Post Debridement (cm) - Width 0.5 0.1 0.1 -Post Debridement (cm) - Depth 0 0.1 0.1 -Total Square (Post) (cm) 0.20 0.01 0.01 -Area of Debridement (cm) - Length 0.4 0.1 0.1 -Area of Debridement (cm) - Width 0.5 0.1 0.1 -Total Square (Area) (cm) 0.20 0.01 0.01 -Tunneling No No No -Undermining/Tunneling No No No -Circular Undermining No No No -Wound/Ulcer Outcome Not Healed Not Healed Not Healed -Ulcer Cleansing Rinsed/ Rinsed/ Irrigated with Irrigated with Saline Saline -Foul Odor after Cleansing No No -Bioengineered Tissue No No -Bleeding Controlled with Pressure Pressure Pressure -Treatment Response Procedure Procedure Procedure Tolerated Well Tolerated Well Tolerated Well -Offloading No No -Debridement - Subq, 1st 20sq cm No No No -Theraskin - 100TSXS (6 SQ CM) (per sq 6 cm) #1 RT superior stump -Time 13:38 15:59 14:00 -Correct Patient Yes Yes Yes -Correct Side, Site, Position Yes Yes Yes -Correct Procedure Yes Yes Yes -Procedure Performed Yes Yes Yes -Type of Procedure Debridement Debridement Debridement -Clinical Debridement Subcutaneous Subcutaneous Subcutaneous -Tissue Removed Subcutaneous Subcutaneous Subcutaneous -Post Debridement (cm) - Length 2.4 2.4 2.4 -Post Debridement (cm) - Width 3.3 2.4 2.8 -Post Debridement (cm) - Depth 0.2 0.2 0.2 -Total Square (Post) (cm) 7.92 5.76 6.72 -Area of Debridement (cm) - Length 2.4 2.4 2.4 -Area of Debridement (cm) - Width 3.3 2.4 2.8 -Total Square (Area) (cm) 7.92 5.76 6.72 -Tunneling No No No -Undermining/Tunneling No No No -Circular Undermining No No No -Wound/Ulcer Outcome Not Healed Not Healed Not Healed -Ulcer Cleansing Rinsed/ Rinsed/ Irrigated with Irrigated with Saline Saline -Foul Odor after Cleansing No No -Bioengineered Tissue No No -Type of Bioengineered Tissue Theraskin -Bleeding Controlled with Pressure Pressure Pressure -Treatment Response Procedure Procedure Procedure Tolerated Well Tolerated Well Tolerated Well -Offloading No No -Debridement - Subq, 1st 20sq cm Yes Yes No -Theraskin - 100TSXS (6 SQ CM) (per sq 6 cm) Pain Scale: 0-10 Numeric Is Patient Pain Free? Yes Yes Yes WC - Nurse 3 - General Ulcer D/C NN Start: 01/26/24 13:06 Freq: Status: Active Protocol: Activity Type Activity Date Activity User E-sign Co-sign Detail Recorded Client Recorded Date Recorded By Document 01/26/24 13:55 BMF 10.10.25.7 01/26/24 13:56 BMF Document 02/02/24 16:24 DL 10.10.25.7 02/02/24 16:27 DL Document 02/09/24 14:34 KW ; 02/09/24 14:35 KW 01/26/24 02/02/24 02/09/24 13:55 16:24 14:34 Wound Care Center Nurse 3 #2inferior medial stump -Ulcer Cleansing Rinsed/ Rinsed/ Irrigated with Irrigated with Saline Saline -Foul Odor after Cleansing No No -Negative Pressure Wound Therapy Continue -Setting (mmHg) 150 -Negative Pressure is Continuous -Primary Dressing Covered/Secured with Dry Gauze,Other -Other Covering Vac drape -NPWT Application Charge NPWT & Debridement (nc ) #1 RT superior stump -Ulcer Cleansing Rinsed/ Soap and Water Irrigated with Saline -Foul Odor after Cleansing No No -Negative Pressure Wound Therapy Continue Continue Continue -Setting (mmHg) 150 150 150 -Negative Pressure is Continuous Continuous Continuous -NPWT Application Charge NPWT - Multiple NPWT & NPWT & Locations Debridement (nc Debridement (nc ) ) -Wound Comment(s) dressing applied per Yaz Swain Right -Compression Wrap Jozef Wrap Jozef Wrap Treatment Response Procedure Procedure Tolerated Well Tolerated Well Pain Scale: 0-10 Numeric Is Patient Pain Free? Yes Yes Yes WC - Visit Discharge Discharge Condition Stable Stable Stable Ambulatory Status Walker, Ambulatory Wheelchair Wheelchair Transportation Private Auto Private Auto Private Auto Accompanied by Medication Reconcilliation completed & No provided to patient/care provider Clinical Summary of Care Provided Yes Facility Type Home Health Home Health Orders Sent Yes Charges/Coding Procedures Integumentary [id number]: 20352 Skin sub graft trnk/arm/leg Assessment/Plan Assessment/Plan (1) Non-pressure chronic ulcer of right calf with fat layer exposed: CODE(S): L97.212 - Non-pressure chronic ulcer of right calf with fat layer exposed (2) Surgical wound dehiscence: CODE(S): T81.31XA - Disruption of external operation (surgical) wound, not elsewhere classified, initial encounter QUALIFIERS: Encounter type: subsequent encounter Qualified Code(s): T81.31XD - Disruption of external operation (surgical) wound, not elsewhere classified, subsequent encounter (3) History of right below knee amputation: CODE(S): Z89.511 - Acquired absence of right leg below knee (4) Tinea cruris: CODE(S): B35.6 - Tinea cruris (5) Morbid obesity with BMI of 50.0-59.9, adult: CODE(S): E66.01 - Morbid (severe) obesity due to excess calories; Z68.43 - Body mass index [BMI] 50.0-59.9, adult (6) Diabetes mellitus, type 2: CODE(S): E11.9 - Type 2 diabetes mellitus without complications QUALIFIERS: Diabetes mellitus watermaster insulin use: with watermaster use Diabetes mellitus complication status: with kidney complications Diabetes mellitus complication detail: with chronic kidney disease Chronic kidney disease stage: stage 3 (moderate) Chronic kidney disease stage 3 subtyp e: stage 3a (GFR 45-59) Qualified Code(s): E11.22 - Type 2 diabetes mellitus with diabetic chronic kidney disease; N18.31 - Chronic kidney disease, stage 3a; Z79.4 - senior care (current) use of insulin (7) Below knee amputation: CODE(S): S88.119A - 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, unspecified lower leg, initial encounter QUALIFIERS: Encounter type: sequela Laterality: bilateral Qualified Code(s): S88.111S - 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, right lower leg, sequela; S88.112S - 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, left lower leg, sequela (8) Hypothyroid: CODE(S): E03.9 - Hypothyroidism, unspecified QUALIFIERS: Hypothyroidism type: acquired Qualified Code(s): E03.9 - Hypothyroidism, unspecified (9) Benign essential HTN: CODE(S): I10 - Essential (primary) hypertension (10) Breast cancer in female: CODE(S): C50.919 - Malignant neoplasm of unspecified site of unspecified female breast QUALIFIERS: Breast location: unspecified site of breast Estrogen receptor status: positive Laterality: right Qualified Code(s): C50.911 - Malignant neoplasm of unspecified site of right female breast; Z17.0 - Estrogen receptor positive status [ER+] (11) History of kidney stones: CODE(S): Z87.442 - Personal history of urinary calculi (12) Physical debility: CODE(S): R53.81 - Other malaise (13) Hx of supraventricular tachycardia: CODE(S): Z86.79 - Personal history of other diseases of the circulatory system (14) Hyperlipidemia: CODE(S): E78.5 - Hyperlipidemia, unspecified (15) GERD (gastroesophageal reflux disease): CODE(S): K21.9 - Gastro-esophageal reflux disease without esophagitis (16) Pulmonary hypertension: CODE(S): I27.20 - Pulmonary hypertension, unspecified (17) Chronic renal failure, stage 3 (moderate): CODE(S): N18.30 - Chronic kidney disease, stage 3 unspecified (18) Diverticulosis: CODE(S): K57.90 - Diverticulosis of intestine, part unspecified, without perforation or abscess without bleeding (19) Rheumatoid arthritis: CODE(S): M06.9 - Rheumatoid arthritis, unspecified (20) History of endometrial cancer: CODE(S): Z85.42 - Personal history of malignant neoplasm of other parts of uterus (21) History of total abdominal hysterectomy and bilateral salpingo- oophorectomy: CODE(S): Z90.710 - Acquired absence of both cervix and uterus; Z90.722 - Acquired absence of ovaries, bilateral; Z90.79 - Acquired absence of other genital organ(s) (22) History of cardiac radiofrequency ablation: CODE(S): Z98.890 - Other specified postprocedural states (23) History of carpal tunnel release: CODE(S): Z98.890 - Other specified postprocedural states (24) History of tonsillectomy: CODE(S): Z90.89 - Acquired absence of other organs (25) Right leg swelling: CODE(S): M79.89 - Other specified soft tissue disorders PLAN: Plan This is a 63-year-old female with multiple pre-existing medical problems, who presented with a 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 She underwent right below-knee amputation on October 19, 2023 at [facility]. Upon removal of her surgical luisana, several weeks following surgery, she developed a surgical wound dehiscence. She was referred to the [facility] for definitive management. 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 The patient has been advised to elevate her right lower extremity to heart level as much as possible. She admits to sleeping on a flat mattress at night. Elevation will help to minimize swelling. A TheraSkin allograft was applied in our facility today. This is the first such allograft application. Once applied, the wound VAC was applied as well, to be changed twice weekly. The wound VAC setting is 150 mmHg with continuous suction. Improvement has been observed since initiation of negative pressure wound therapy. It is hoped that the healing process will be expedited by the use of both negative pressure wound therapy and allografts, as surgical mastectomy is anticipated in the near future, and awaits wound healing. Patient has been instructed to maintain a dialogue with her surgeon, Dr. Knapp, so that surgery can proceed as felt appropriate by her surgeon. Optimizing nutritional intake and glycemic control have been discussed. A nutritional supplement, such as Glucerna, would be appropriate. Wound cultures were obtained several weeks ago, and were positive for Enterobacter cloacae, Staphylococcus epidermidis, Enterococcus faecalis, Staphylococcus lugdunensis, anaerobic cocci, and Bacteroides fragilis. The patient was placed on Bactrim double strength twice daily orally for 10 days, and amoxicillin 500 mg p.o. orally twice daily for 10 days. The courses of antibiotics have been completed. The overt signs of infection have resolved, and the wound remains pink and healthy with evidence of active granulation tissue. The patient developed severe tinea cruris in the perineal region and groin, for which she has been using nystatin powder and cornstarch, which has improved significantly. The patient is to follow-up in 1 week for reassessment. The patient indicates that her oncologist has implemented hormonal therapy. The decision to proceed with breast surgery will be deferred to Dr. Knapp. Total time: 24 minutes
[2024-02-16 16:00] VITALS: BP 119/55; PULSE 76; RESP 18; TEMP 35.5; BMI 54.1
--- NOTE | 2024-02-16 18:16 | PCM.WC.HP ---
History of Present Illness Date of Service: 02/16/24 Chief Complaint: Surgical wound dehiscence of the right below-knee amputation stump incision History of Wound: This is a 63-year-old morbidly obese female with multiple pre-existing medical conditions. She is a longstanding diabetic and has been poorly controlled. She suffers from diabetic peripheral neuropathy. She developed a right Charcot foot deformity, with collapse of her right arch. Her condition resulted in a right below-knee amputation which was performed at [facility] by Dr. Narayan on October 19, 2023. The patient had a relatively uncomplicated postoperative course. She was transferred to the [facility] rehabilitation unit, where she continued to convalesce for several weeks. Several weeks postoperatively, Dr. Damon's staff removed the patient's surgical luisana, and the patient subsequently developed a dehiscence. She was referred to the [facility] for management of her right below-knee amputation stump incisional dehiscence. The patient had been using Neosporin and gauze topically. She had also been using a Coban wrap and has been fitted with a stump office asst by [employer]. The patient's multiple pre-existing medical conditions are listed elsewhere. Of note, she underwent right breast needle biopsy on November 26, 2023, which was indicative of invasive ductal carcinoma. She is under the care of other providers for management of this recent diagnosis, including her surgeon, Dr. Knapp. Laboratory results obtained on December 03, 2023, were as follows: Sodium 139, potassium 4.0, chloride 106, BUN 21, creatinine 1.21, glucose 120, calcium 9.1, total bilirubin 0.60, AST 23, ALT 29, alkaline phosphatase 103, total protein 7.1, albumin 3.7. [facility] Medical History Tinea cruris Non-pressure chronic ulcer of right calf with fat layer exposed Wears glasses Post-menopausal Cancer Anxiety Open wound Thyroid disease Insulin dependent diabetes mellitus Uses wheelchair Fatty liver High cholesterol Dietary restriction Non-smoker History of edema History of echocardiogram History of stress test Cardiology follow-up encounter Surgical wound dehiscence Right leg swelling History of endometrial cancer Rheumatoid arthritis Diverticulosis Chronic renal failure, stage 3 (moderate) Pulmonary hypertension GERD (gastroesophageal reflux disease) Hyperlipidemia History of kidney stones Breast cancer in female Morbid obesity with BMI of 50.0-59.9, adult Hydronephrosis Ureteral calculus Charcot ankle Diabetic neuropathy Morbid obesity with BMI of 50.0-59.9, adult Diverticulosis Diabetes mellitus, type 2 Chronic renal failure (CRF), stage 3a Anemia Rheumatoid arthritis Chronic pain CPAP (continuous positive airway pressure) dependence Pulmonary hypertension BRITT (obstructive sleep apnea) Thyromegaly Hx of supraventricular tachycardia Nephrolithiasis Rosacea Fatty liver External hemorrhoid GERD without esophagitis Benign essential HTN Bilateral carpal tunnel syndrome Hyperlipidemia Low vitamin B12 level Multinodular goiter Tubular adenoma Adenocarcinoma of endometrium Home Medications ?Medication ?Instructions ?Recorded ?Last Taken ?Type aspirin 81 mg tablet,delayed 81 mg PO DAILY Heart health 01/11/16 12/22/23 History release cetirizine 10 mg capsule 10 mg PO DAILY Allergies 01/11/16 Unknown History metoprolol succinate 100 mg 100 mg PO DAILY BP 01/11/16 07/03/17 History tablet,extended release 24 hr multivitamin 1 ea PO DAILY Supplement 01/11/16 Unknown History omeprazole 40 mg capsule,delayed 40 mg PO DAILY GERD 01/11/16 07/03/17 History release simvastatin 20 mg tablet 20 mg PO QHS Cholestrol 01/11/16 Unknown History cyanocobalamin (vitamin B-12) 1,000 mcg PO DAILY Supplement 07/02/17 Unknown History 1,000 mcg sublingual tablet hydroxychloroquine 200 mg tablet 200 mg PO BID Platelets 04/28/18 Unknown History (Plaquenil) pregabalin 150 mg capsule (Lyrica) 150 mg PO QHS Nerve pain 06/14/18 Unknown History ferrous sulfate 325 mg (65 mg 325 mg PO DAILY supplement 04/25/20 Unknown History iron) tablet (Feosol) allopurinol 100 mg tablet 100 mg PO DAILY #30 tabs 11/18/23 Unknown Rx ascorbic acid (vitamin C) 500 mg 1,000 mg (2 x 500 mg) PO DAILY #30 11/18/23 Unknown Rx tablet tabs calcium carbonate (Oyster Shell 500 mg PO BREAKFAST #30 tabs 11/18/23 Unknown Rx Calcium 500) insulin regular hum U-500 conc 500 See Rx Instructions .Route 11/18/23 Unknown Rx unit/mL(3 mL) subcut pen .COMPLEX Blood sugar 30 days #5 pens pregabalin 100 mg capsule (Lyrica) 100 mg PO BID #60 caps 11/19/23 Unknown Rx blood sugar diagnostic (OneTouch #100 ea 12/03/23 Unknown Rx Ultra Test strips) blood-glucose sensor (Dexcom G6 #9 ea 12/03/23 Unknown Rx Sensor device) blood-glucose transmitter (Dexcom #1 ea 12/03/23 Unknown Rx G6 Transmitter device) bupropion HCl 300 mg 24 hr tablet, 300 mg PO DAILY #90 tabs 12/03/23 Unknown Rx extended release levothyroxine 300 mcg tablet 300 mcg PO DAILY #30 tabs 12/03/23 Unknown Rx losartan 50 mg tablet (Cozaar) 50 mg PO DAILY #90 tabs 12/03/23 Unknown Rx OneTouch Delica Plus Lancet 33 #100 ea 12/04/23 Unknown Rx gauge (lancets) blood sugar diagnostic (OneTouch #100 ea 12/04/23 Unknown Rx Ultra Test strips) buspirone 5 mg tablet 5 mg PO TID #90 tabs 12/11/23 Unknown Rx alprazolam 0.5 mg tablet (Xanax) 0.5 mg PO TID PRN PRN panic attack 12/25/23 Unknown History fiber 1 cap PO DAILY 12/25/23 Unknown History oxycodone 5 mg capsule 5 mg PO Q6H PRN PRN pain 12/25/23 Unknown History anastrozole 1 mg tablet (Arimidex) 1 mg PO DAILY #90 tabs 01/14/24 Unknown Rx clotrimazole-betamethasone 1 applic topical BID 01/23/24 Unknown History %-0.05 % topical cream nitrofurantoin 100 mg PO Q12 #14 CAPSULES 01/23/24 Unknown Rx monohydrate/macrocrystals 100 mg capsule nystatin 100,000 unit/gram topical topical BID 01/23/24 Unknown History ointment nystatin 100,000 unit/gram topical 1 applic topical BID 10 days #30 01/23/24 Unknown Rx powder (Klayesta) grams insulin lispro 100 unit/mL 3 unit (0.03 mL) subcut TID PRN 02/04/24 Unknown Rx subcutaneous pen elevated BS #15 mL Allergy/AdvReac Type Severity Reaction Status Date / Time No Known Allergies Allergy Verified 01/23/24 08:55 Family History Mother Ovarian cancer Hypertension Arthritis Uterine cancer Fibrocystic disease of breast Hypothyroid Father , Age 86-CHF Hypertension Arthritis Diverticulitis of colon Depression CAD (coronary artery disease) Sister Hypertension Depression CVA (cerebral vascular accident) Fibrocystic disease of breast Diabetes Bleeding disorder Portal hypertension Surgical History Hx of cystoscopy Hx of total thyroidectomy History of tonsillectomy History of carpal tunnel release History of cardiac radiofrequency ablation History of total abdominal hysterectomy and bilateral salpingo-oophorectomy History of below-knee amputation S/P cystoscopy with ureteral stent placement History of right below knee amputation History of hand surgery H/O cardiac radiofrequency ablation (02/15/13) History of right and left heart catheterization (07/03/17) H/O colonoscopy H/O abdominal hysterectomy H/O carpal tunnel repair Previous section History of tonsillectomy Hx of cholecystectomy Surgical menopause Social History Smoking Status: Never smoker second hand exposure: No alcohol intake: never substance use type: does not use caffeine: No Vital Signs Vital Signs Vital Signs: 02/16/24 16:00 Temperature 96 F L Temperature Source Temporal Pulse Rate 76 Respiratory Rate 18 Blood Pressure 119/55 L Blood Pressure Mean 76 Blood Pressure Source Monitor Blood Pressure Position Semi-Fowlers Blood Pressure Location Left Arm Weight Weight: 335 lb Body Mass Index (BMI) 54.1 Physical Exam Narrative ECOG 2, seen in a wheelchair Const alert, oriented x3 and no apparent distress Constitutional Narrative: The patient is morbidly obese. Her BMI is 54.1. General Appearance: cooperative, comfortable, well kempt and well developed Orientation / Consciousness: awake, oriented to person, oriented to place and oriented to time Exam Limitations: no limitations Nutritional Appearance: morbidly obese HEENT normocephalic and head/scalp atraumatic Head and Scalp: normal to inspection Nose: external nose normal External Ear: external ears normal Eyes EOMs intact bilaterally General Eye: normal appearance of both eyes Neck full ROM Resp normal respiratory effort, normal air movement, no retractions and no use of accessory muscles Effort and Inspection: able to speak in complete sentences Skin Skin Narrative: The patient has a severe erythematous rash in her perineal area and in the crural regions of the groin. Wound Narrative: A right below-knee amputation is noted. One dehiscent wound on the right BKA incision persists. This wound demonstrates significant improvement, with a decrease in size and depth. Dimensions are documented elsewhere. The wound is pink and healthy in appearance, with a small amount of bioburden. There is evidence of peripheral epithelialization. There is no sign of infection or cellulitis. Neuro oriented x3, CN's II-XII intact bilaterally, moves all extremities, no focal motor deficits and no sensory deficits noted Sensorium / Orientation: awake, alert, oriented to person, oriented to place and oriented to time Speech: speech normal Psych mental status grossly normal and thought process normal Attitude: calm and engaged Activity / Motor Behavior: appropriate eye contact Speech: normal speech Thought Process: normal thought process Attention / Concentration: attention grossly intact Debridement Note Debridement Note Wound debrided: Dehiscent right below-knee amputation stump incision Laterality: Right Type of Debridement: Excisional debridement Anesthesia Used: 5% Lidocaine Gel Depth: Down to and including healthy tissue and in the subcutaneous layer Percentage of wound debrided: 100 Instrument Used: 5mm curette Tissue Removed: Bioburden Severity: Fat Layer Exposed Amount of bleeding with debridement: Mild Bleeding Controlled with: Compression and gauze Patient tolerated procedure: Patient tolerated procedure well Debridement Free Text: An excisional debridement was performed, and was tolerated well by the patient. Having obtained preauthorization for the use of a skin substitute, a TheraSkin allograft was selected for application today. This is the second such application of an allograft. A 1 inch x 1 inch TheraSkin fenestrated allograft was selected. This is a 6 cm? allograft. The allograft was removed from its sterile packaging following the appropriate preparation. It was then placed in the appropriate orientation topically on the patient's dehiscent wound. The size of the allograft was appropriate, covering the entire open wound without excess. 100% of the allograft was utilized. Once in place, the allograft was secured at its periphery using Dermabond. Adaptic Touch was then placed, and secured using Steri-Strips. The Wound VAC was then carefully applied. It is to continue at 150 mmHg continuous suction, to be changed twice a week. Post-Debridement Measurements and Additional Note: Post-Debridement Measurements/Treatment WC - Nurse 1 - General Ulcer Assessment Start: 01/26/24 13:06 Freq: Status: Active Protocol: WC.LOWEXT Activity Type Activity Date Activity User E-sign Co-sign Detail Recorded Client Recorded Date Recorded By Document 01/26/24 13:08 KW z 01/26/24 13:20 KW Document 02/02/24 15:07 DL [id number] 02/02/24 15:18 DL Document 02/09/24 13:39 RB wound 02/09/24 13:44 RB Document 02/16/24 16:00 RB wound 02/16/24 16:02 RB 01/26/24 02/02/24 02/09/24 13:08 15:07 13:39 WC - Today's Visit Information Type of service Follow-up Visit Follow-up Visit Follow-up Visit (Physician/DIAMOND SAW OPERATOR (Physician/DIAMOND SAW OPERATOR (Physician/DIAMOND SAW OPERATOR ) ) ) Arrival Mode Wheelchair Ambulatory, Wheelchair Wheelchair Transfer Assistance None None Accompanied by Patient Identification Verified (Name & Yes Yes Yes ) Patient Requires Transmission-Based No No Precautions Finger Stick Blood Sugar(mg/dl) (if 175 indicated): Blood Sugar Stated by Patient Height and Weight Body Mass Index (BMI) 54.1 54.1 54.1 BMI Classification Obese Obese Obese Vital Signs Temperature (97.8 F-99.1 F) 97.2 F L 98.2 F 97.6 F L Temperature Source Temporal Temporal Temporal Pulse Rate (60-100) 74 78 76 Pulse Location Monitor Monitor Respiratory Rate (12-18) 18 20 H 18 Respiratory rate source Observation Observation Observation Oxygen Delivery Method Room Air Blood Pressure (90/60-120/80) 120/43 L 128/48 H 144/57 H Blood Pressure Mean 68 74 86 Source Monitor Monitor Monitor Position Semi-Fowlers Semi-Fowlers Blood Pressure Location Left Arm Left Arm History Since Last Visit- (Skip if this is Patient's initial visit) Have you changed medications since your No No No last visit? Any new allergies or adverse reactions No No No Had a fall/change in ADL's that may No No No increase risk of falls Signs or symptoms of abuse and/or No No No neglect since last visit Have you been in the hospital since your Yes No No last visit? Has dressing in place as prescribed Yes Yes Yes Has compression in place as prescribed Yes Yes Yes Has offloadiing in place as prescribed Yes Yes No Experienced any changes in pain level or No No No management Left Footwear Regular Shoe Right Footwear No Footwear No Footwear Pain Scale: 0-10 Numeric Is Patient Pain Free? Yes Yes Yes 02/16/24 16:00 WC - Today's Visit Information Type of service Follow-up Visit (Physician/DIAMOND SAW OPERATOR ) Arrival Mode Ambulatory Transfer Assistance None Accompanied by Patient Identification Verified (Name & Yes ) Patient Requires Transmission-Based No Precautions Finger Stick Blood Sugar(mg/dl) (if indicated): Blood Sugar Height and Weight Body Mass Index (BMI) 54.1 BMI Classification Obese Vital Signs Temperature (97.8 F-99.1 F) 96 F L Temperature Source Temporal Pulse Rate (60-100) 76 Pulse Location Monitor Respiratory Rate (12-18) 18 Respiratory rate source Observation Oxygen Delivery Method Blood Pressure (90/60-120/80) 119/55 L Blood Pressure Mean 76 Source Monitor Position Semi-Fowlers Blood Pressure Location Left Arm History Since Last Visit- (Skip if this is Patient's initial visit) Have you changed medications since your No last visit? Any new allergies or adverse reactions No Had a fall/change in ADL's that may No increase risk of falls Signs or symptoms of abuse and/or No neglect since last visit Have you been in the hospital since your No last visit? Has dressing in place as prescribed Yes Has compression in place as prescribed No Has offloadiing in place as prescribed No Experienced any changes in pain level or No management Left Footwear Right Footwear Pain Scale: 0-10 Numeric Is Patient Pain Free? Yes - Nurse 1 - General Ulcer Measurement Start: 01/26/24 13:06 Freq: Status: Active Protocol: Activity Type Activity Date Activity User E-sign Co-sign Detail Recorded Client Recorded Date Recorded By Document 01/26/24 13:08 KW z 01/26/24 13:20 KW Document 02/02/24 15:07 DL [email or web address] 02/02/24 15:18 DL Document 02/09/24 13:39 RB wound 02/09/24 13:44 RB Document 02/16/24 16:00 RB wound 02/16/24 16:02 RB 01/26/24 02/02/24 02/09/24 13:08 15:07 13:39 Wound Center Nurse 1 #2inferior medial stump -Combined with other wound No -Current Size (cm) - Length 2.5 0.2 0 -Current Size (cm) - Width 3.5 0.2 0 -Current Size (cm) - Depth 0.1 0.2 0 -Total Square Cm 8.75 0.04 0 -Date of Last Picture (Recall this 01/26/24 field) -Photo Taken Yes -Epithelialization Large 67-100% -Exudate Amt Small Small -Exudate Type Serosanguineous Serosanguineous -Wound Margin Distinct, Distinct, Outline Outline Attached Attached -Granulation Amt Large (67-100%) Small (1-33%) -Granulation Quality Red Red -Necrosis Amt Small (1-33%) None Present (0 %) -Necrotic Tissue Type Adherent Slough -Structure Exposed N/A -Texture (Fadumo-wound Skin Appearance) Assessed Scarring -Moisture (Fadumo-wound Skin Appearance) Assessed No Abnormality -Color (Fadumo-wound Skin Appearance) Assessed No Abnormality -Temperature (Fadumo-wound Skin No Abnormality No Abnormality Appearance) (Pt Warm) (Pt Warm) -Tenderness on Palpation (Fadumo-wound No Skin Appearance) -Ulcer Cleansing Soap and Water Soap and Water -Foul Odor after Cleansing No No -Anesthetic Used 5% Lidocaine 5% Lidocaine Gel Gel #1 RT superior stump -Combined with other wound No -Current Size (cm) - Length 0.2 2.7 2.4 -Current Size (cm) - Width 0.2 2.7 3.3 -Current Size (cm) - Depth 0.1 0.1 0.1 -Total Square Cm 0.04 7.29 7.92 -Date of Last Picture (Recall this 01/26/24 field) -Photo Taken Yes -Tunneling No -Undermining/Tunneling No -Circular Undermining No -Exudate Amt Small Medium Large -Exudate Type Serosanguineous Serosanguineous Serosanguineous -Wound Margin Distinct, Distinct, Distinct, Outline Outline Outline Attached Attached Attached -Granulation Amt Large (67-100%) Medium (34-66%) -Granulation Quality Red [place] -Slough/Fibrin Yes -Necrosis Amt Large (67-100%) None Present (0 Medium (34-66%) %) -Necrotic Tissue Type Adherent Slough Adherent Slough -Structure Exposed N/A N/A -Texture (Fadumo-wound Skin Appearance) Assessed Scarring Assessed -Moisture (Fadumo-wound Skin Appearance) Assessed No Abnormality Assessed -Color (Fadumo-wound Skin Appearance) Assessed No Abnormality Assessed -Temperature (Fadumo-wound Skin No Abnormality No Abnormality No Abnormality Appearance) (Pt Warm) (Pt Warm) (Pt Warm) -Tenderness on Palpation (Fadumo-wound No No Skin Appearance) -Ulcer Cleansing Soap and Water Soap and Water Wound Cleanser -Foul Odor after Cleansing No No No -Anesthetic Used 5% Lidocaine 5% Lidocaine 5% Lidocaine Gel Gel Gel 02/16/24 16:00 Wound Center Nurse 1 #2inferior medial stump -Combined with other wound No -Current Size (cm) - Length -Current Size (cm) - Width -Current Size (cm) - Depth -Total Square Cm -Date of Last Picture (Recall this field) -Photo Taken -Epithelialization -Exudate Amt -Exudate Type -Wound Margin -Granulation Amt -Granulation Quality -Necrosis Amt -Necrotic Tissue Type -Structure Exposed -Texture (Fadumo-wound Skin Appearance) -Moisture (Fadumo-wound Skin Appearance) -Color (Fadumo-wound Skin Appearance) -Temperature (Fadumo-wound Skin Appearance) -Tenderness on Palpation (Fadumo-wound Skin Appearance) -Ulcer Cleansing -Foul Odor after Cleansing -Anesthetic Used #1 RT superior stump -Combined with other wound No -Current Size (cm) - Length 2 -Current Size (cm) - Width 3 -Current Size (cm) - Depth 0.1 -Total Square Cm 6 -Date of Last Picture (Recall this field) -Photo Taken -Tunneling No -Undermining/Tunneling No -Circular Undermining No -Exudate Amt Medium -Exudate Type Serosanguineous -Wound Margin Distinct, Outline Attached -Granulation Amt Medium (34-66%) -Granulation Quality [place] -Slough/Fibrin Yes -Necrosis Amt Medium (34-66%) -Necrotic Tissue Type Adherent Slough -Structure Exposed N/A -Texture (Fadumo-wound Skin Appearance) Assessed, Scarring -Moisture (Fadumo-wound Skin Appearance) Assessed -Color (Fadumo-wound Skin Appearance) Assessed -Temperature (Fadumo-wound Skin No Abnormality Appearance) (Pt Warm) -Tenderness on Palpation (Fadumo-wound No Skin Appearance) -Ulcer Cleansing Wound Cleanser -Foul Odor after Cleansing No -Anesthetic Used 5% Lidocaine Gel WC - Nurse 2 - General Ulcer CM Notes Start: 01/26/24 13:06 Freq: Status: Active Protocol: Activity Type Activity Date Activity User E-sign Co-sign Detail Recorded Client Recorded Date Recorded By Document 01/26/24 13:32 JF [id number] 01/26/24 13:38 JF Document 02/02/24 15:58 JF 000 02/02/24 16:03 JF Document 02/09/24 14:08 DS 1 02/09/24 14:15 DS Document 02/16/24 16:05 DS 1 02/16/24 16:20 DS 01/26/24 02/02/24 02/09/24 13:32 15:58 14:08 Wound Center Nurse 2 #2inferior medial stump -Time 13:33 15:58 14:00 -Correct Patient Yes No Yes -Correct Side, Site, Position Yes No Yes -Correct Procedure Yes No Yes -Procedure Performed Yes No Yes -Type of Procedure Debridement Debridement -Clinical Debridement Subcutaneous Subcutaneous -Tissue Removed Subcutaneous Subcutaneous -Post Debridement (cm) - Length 0.4 0.1 0.1 -Post Debridement (cm) - Width 0.5 0.1 0.1 -Post Debridement (cm) - Depth 0 0.1 0.1 -Total Square (Post) (cm) 0.20 0.01 0.01 -Area of Debridement (cm) - Length 0.4 0.1 0.1 -Area of Debridement (cm) - Width 0.5 0.1 0.1 -Total Square (Area) (cm) 0.20 0.01 0.01 -Tunneling No No No -Undermining/Tunneling No No No -Circular Undermining No No No -Wound/Ulcer Outcome Not Healed Not Healed Not Healed -Ulcer Cleansing Rinsed/ Rinsed/ Irrigated with Irrigated with Saline Saline -Foul Odor after Cleansing No No -Bioengineered Tissue No No -Bleeding Controlled with Pressure Pressure Pressure -Treatment Response Procedure Procedure Procedure Tolerated Well Tolerated Well Tolerated Well -Offloading No No -Debridement - Subq, 1st 20sq cm No No No -Theraskin - 100TSXS (6 SQ CM) (per sq 6 cm) #1 RT superior stump -Time 13:38 15:59 14:00 -Correct Patient Yes Yes Yes -Correct Side, Site, Position Yes Yes Yes -Correct Procedure Yes Yes Yes -Procedure Performed Yes Yes Yes -Type of Procedure Debridement Debridement Debridement -Clinical Debridement Subcutaneous Subcutaneous Subcutaneous -Tissue Removed Subcutaneous Subcutaneous Subcutaneous -Post Debridement (cm) - Length 2.4 2.4 2.4 -Post Debridement (cm) - Width 3.3 2.4 2.8 -Post Debridement (cm) - Depth 0.2 0.2 0.2 -Total Square (Post) (cm) 7.92 5.76 6.72 -Area of Debridement (cm) - Length 2.4 2.4 2.4 -Area of Debridement (cm) - Width 3.3 2.4 2.8 -Total Square (Area) (cm) 7.92 5.76 6.72 -Tunneling No No No -Undermining/Tunneling No No No -Circular Undermining No No No -Wound/Ulcer Outcome Not Healed Not Healed Not Healed -Ulcer Cleansing Rinsed/ Rinsed/ Irrigated with Irrigated with Saline Saline -Foul Odor after Cleansing No No -Bioengineered Tissue No No -Type of Bioengineered Tissue Theraskin -Bleeding Controlled with Pressure Pressure Pressure -Treatment Response Procedure Procedure Procedure Tolerated Well Tolerated Well Tolerated Well -Offloading No No -Debridement - Subq, 1st 20sq cm Yes Yes No -Apply Skin Sub - 1st 25 sq cm - Legs -Theraskin - 100TSXS (6 SQ CM) (per sq 6 cm) Pain Scale: 0-10 Numeric Is Patient Pain Free? Yes Yes Yes 02/16/24 16:05 Wound Center Nurse 2 #2inferior medial stump -Time -Correct Patient -Correct Side, Site, Position -Correct Procedure -Procedure Performed -Type of Procedure -Clinical Debridement -Tissue Removed -Post Debridement (cm) - Length -Post Debridement (cm) - Width -Post Debridement (cm) - Depth -Total Square (Post) (cm) -Area of Debridement (cm) - Length -Area of Debridement (cm) - Width -Total Square (Area) (cm) -Tunneling -Undermining/Tunneling -Circular Undermining -Wound/Ulcer Outcome -Ulcer Cleansing -Foul Odor after Cleansing -Bioengineered Tissue -Bleeding Controlled with -Treatment Response -Offloading -Debridement - Subq, 1st 20sq cm -Theraskin - 100TSXS (6 SQ CM) (per sq cm) #1 RT superior stump -Time 16:07 -Correct Patient Yes -Correct Side, Site, Position Yes -Correct Procedure Yes -Procedure Performed Yes -Type of Procedure Debridement -Clinical Debridement Subcutaneous -Tissue Removed Subcutaneous -Post Debridement (cm) - Length 2.4 -Post Debridement (cm) - Width 1.9 -Post Debridement (cm) - Depth 0.1 -Total Square (Post) (cm) 4.56 -Area of Debridement (cm) - Length 2.4 -Area of Debridement (cm) - Width 1.9 -Total Square (Area) (cm) 4.56 -Tunneling No -Undermining/Tunneling No -Circular Undermining No -Wound/Ulcer Outcome Not Healed -Ulcer Cleansing -Foul Odor after Cleansing -Bioengineered Tissue Yes -Type of Bioengineered Tissue Theraskin -Bleeding Controlled with Pressure -Treatment Response Procedure Tolerated Well -Offloading -Debridement - Subq, 1st 20sq cm No -Apply Skin Sub - 1st 25 sq cm - Legs 1 -Theraskin - 100TSXS (6 SQ CM) (per sq 6 cm) Pain Scale: 0-10 Numeric Is Patient Pain Free? Yes WC - Nurse 3 - General Ulcer D/C NN Start: 01/26/24 13:06 Freq: Status: Active Protocol: Activity Type Activity Date Activity User E-sign Co-sign Detail Recorded Client Recorded Date Recorded By Document 01/26/24 13:55 BMF [id number] 01/26/24 13:56 BMF Document 02/02/24 16:24 DL [id number] 02/02/24 16:27 DL Document 02/09/24 14:34 KW ; 02/09/24 14:35 KW Document 02/16/24 16:43 RB wound 02/16/24 16:44 RB 01/26/24 02/02/24 02/09/24 13:55 16:24 14:34 Wound Care Center Nurse 3 #2inferior medial stump -Ulcer Cleansing Rinsed/ Rinsed/ Irrigated with Irrigated with Saline Saline -Foul Odor after Cleansing No No -Negative Pressure Wound Therapy Continue -Setting (mmHg) 150 -Negative Pressure is Continuous -Primary Dressing Covered/Secured with Dry Gauze,Other -Other Covering Vac drape -NPWT Application Charge NPWT & Debridement (nc ) #1 RT superior stump -Ulcer Cleansing Rinsed/ Soap and Water Irrigated with Saline -Foul Odor after Cleansing No No -Negative Pressure Wound Therapy Continue Continue Continue -Setting (mmHg) 150 150 150 -Negative Pressure is Continuous Continuous Continuous -NPWT Application Charge NPWT - Multiple NPWT & NPWT & Locations Debridement (nc Debridement (nc ) ) -Wound Comment(s) dressing applied per K. Swain Right -Compression Wrap Jozef Wrap Jozef Wrap -Other Treatment Response Procedure Procedure Tolerated Well Tolerated Well Pain Scale: 0-10 Numeric Is Patient Pain Free? Yes Yes Yes WC - Visit Discharge Discharge Condition Stable Stable Stable Ambulatory Status Walker, Ambulatory Wheelchair Wheelchair Transportation Private Auto Private Auto Private Auto Accompanied by Medication Reconcilliation completed & No provided to patient/care provider Clinical Summary of Care Provided Yes Facility Type [facility] Orders Sent Yes 02/16/24 16:43 Wound Care Center Nurse 3 #2inferior medial stump -Ulcer Cleansing -Foul Odor after Cleansing -Negative Pressure Wound Therapy -Setting (mmHg) -Negative Pressure is -Primary Dressing Covered/Secured with -Other Covering -NPWT Application Charge #1 RT superior stump -Ulcer Cleansing -Foul Odor after Cleansing -Negative Pressure Wound Therapy Continue -Setting (mmHg) 150 -Negative Pressure is Continuous -NPWT Application Charge NPWT & Debridement (nc ) -Wound Comment(s) Right -Compression Wrap -Other jozef Treatment Response Procedure Tolerated Well Pain Scale: 0-10 Numeric Is Patient Pain Free? Yes WC - Visit Discharge Discharge Condition Stable Ambulatory Status Wheelchair Transportation Private Auto Accompanied by Medication Reconcilliation completed & No provided to patient/care provider Clinical Summary of Care Provided Yes Facility Type Orders Sent Charges/Coding Procedures Integumentary [id number]: [id number] Skin sub graft trnk/arm/leg Assessment/Plan Assessment/Plan (1) Non-pressure chronic ulcer of right calf with fat layer exposed: CODE(S): L97.212 - Non-pressure chronic ulcer of right calf with fat layer exposed (2) Surgical wound dehiscence: CODE(S): T81.31XA - Disruption of external operation (surgical) wound, not elsewhere classified, initial encounter QUALIFIERS: Encounter type: subsequent encounter Qualified Code(s): T81.31XD - Disruption of external operation (surgical) wound, not elsewhere classified, subsequent encounter (3) History of right below knee amputation: CODE(S): Z89.511 - Acquired absence of right leg below knee (4) Tinea cruris: CODE(S): B35.6 - Tinea cruris (5) Morbid obesity with BMI of 50.0-59.9, adult: CODE(S): E66.01 - Morbid (severe) obesity due to excess calories; Z68.43 - Body mass index [BMI] 50.0-59.9, adult (6) Diabetes mellitus, type 2: CODE(S): E11.9 - Type 2 diabetes mellitus without complications QUALIFIERS: Diabetes mellitus rodent 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 insulin use: with rodent 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 use Diabetes mellitus complication status: with kidney complications Diabetes mellitus complication detail: with chronic kidney disease Chronic kidney disease stage: stage 3 (moderate) Chronic kidney disease stage 3 subtype: stage 3a (GFR 45-59) Qualified Code(s): E11.22 - Type 2 diabetes mellitus with diabetic chronic kidney disease; N18.31 - Chronic kidney disease, stage 3a; Z79.4 - assistant terminal manager (current) use of insulin (7) Below knee amputation: CODE(S): S88.119A - 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, unspecified lower leg, initial encounter QUALIFIERS: Encounter type: sequela Laterality: bilateral Qualified Code(s): S88.111S - 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, right lower leg, sequela; S88.112S - 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, left lower leg, sequela (8) Hypothyroid: CODE(S): E03.9 - Hypothyroidism, unspecified QUALIFIERS: Hypothyroidism type: acquired Qualified Code(s): E03.9 - Hypothyroidism, unspecified (9) Benign essential HTN: CODE(S): I10 - Essential (primary) hypertension (10) Breast cancer in female: CODE(S): C50.919 - Malignant neoplasm of unspecified site of unspecified female breast QUALIFIERS: Breast location: unspecified site of breast Estrogen receptor status: positive Laterality: right Qualified Code(s): C50.911 - Malignant neoplasm of unspecified site of right female breast; Z17.0 - Estrogen receptor positive status [ER+] (11) History of kidney stones: CODE(S): Z87.442 - Personal history of urinary calculi (12) Physical debility: CODE(S): R53.81 - Other malaise (13) Hx of supraventricular tachycardia: CODE(S): Z86.79 - Personal history of other diseases of the circulatory system (14) Hyperlipidemia: CODE(S): E78.5 - Hyperlipidemia, unspecified (15) GERD (gastroesophageal reflux disease): CODE(S): K21.9 - Gastro-esophageal reflux disease without esophagitis (16) Pulmonary hypertension: CODE(S): I27.20 - Pulmonary hypertension, unspecified (17) Chronic renal failure, stage 3 (moderate): CODE(S): N18.30 - Chronic kidney disease, stage 3 unspecified (18) Diverticulosis: CODE(S): K57.90 - Diverticulosis of intestine, part unspecified, without perforation or abscess without bleeding (19) Rheumatoid arthritis: CODE(S): M06.9 - Rheumatoid arthritis, unspecified (20) History of endometrial cancer: CODE(S): Z85.42 - Personal history of malignant neoplasm of other parts of uterus (21) History of total abdominal hysterectomy and bilateral salpingo-oophorectomy: CODE(S): Z90.710 - Acquired absence of both cervix and uterus; Z90.722 - Acquired absence of ovaries, bilateral; Z90.79 - Acquired absence of other genital organ(s) (22) History of cardiac radiofrequency ablation: CODE(S): Z98.890 - Other specified postprocedural states (23) History of carpal tunnel release: CODE(S): Z98.890 - Other specified postprocedural states (24) History of tonsillectomy: CODE(S): Z90.89 - Acquired absence of other organs (25) Right leg swelling: CODE(S): M79.89 - Other specified soft tissue disorders PLAN: Plan This is a 63-year-old female with multiple pre-existing medical problems, who presented with a 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 She underwent right below-knee amputation on October 19, 2023 at [facility]. Upon removal of her surgical luisana, several weeks following surgery, she developed a surgical wound dehiscence. She was referred to the [facility] for definitive management. 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 The patient has been advised to elevate her right lower extremity to heart level as much as possible. She admits to sleeping on a flat mattress at night. Elevation will help to minimize swelling. A TheraSkin allograft was applied in our facility today. This is the second such allograft application. Once applied, the wound VAC was applied as well, to be changed twice weekly. The wound VAC setting is 150 mmHg with continuous suction. Improvement has been observed since initiation of negative pressure wound therapy. It is hoped that the healing process will be expedited by the use of both negative pressure wound therapy and allografts, as surgical mastectomy is anticipated in the near future, and awaits further wound healing. The patient has indicated that she has an appointment with her surgeon, Dr. Knapp, in the near future so a discussion regarding her impending breast surgery can be undertaken. Optimizing nutritional intake and glycemic control have been discussed. A nutritional supplement, such as Glucerna, would be appropriate. Wound cultures were obtained several weeks ago, and were positive for Enterobacter cloacae, Staphylococcus epidermidis, Enterococcus faecalis, Staphylococcus lugdunensis, anaerobic cocci, and Bacteroides fragilis. The patient was placed on Bactrim double strength twice daily orally for 10 days, and amoxicillin 500 mg p.o. orally twice daily for 10 days. The courses of antibiotics have been completed. Infection appears to have resolved. The wound remains pink and healthy with evidence of active granulation tissue. The patient developed severe tinea cruris in the perineal region and groin, for which she has been using nystatin powder and cornstarch, with significant improvement. The patient is to follow-up in 1 week for reassessment. The patient indicates that her oncologist has implemented hormonal therapy. The decision to proceed with breast surgery will be deferred to Dr. Knapp. Total time: 25 minutes
[2024-02-19 09:03] VITALS: BP 142/56; PULSE 76; RESP 18; TEMP 36.4; BMI 54.1
[2024-02-23 16:09] VITALS: BP 133/55; PULSE 69; RESP 18; TEMP 36.1; BMI 54.1
--- NOTE | 2024-02-24 17:11 | HP.PCM_ITS ---
History of Present Illness Date of Service: 02/23/24 Chief Complaint: Surgical wound dehiscence of the right below-knee amputation stump incision History of Wound: This is a 63-year-old morbidly obese female with multiple pre- existing medical conditions. She is a longstanding diabetic and has been poorly controlled. She suffers from diabetic peripheral neuropathy. She developed a right Charcot foot deformity, with collapse of her right arch. Her condition resulted in a right below-knee amputation which was performed at [facility] by Dr. Narayan on October 19, 2023. The patient had a relatively uncomplicated postoperative course. She was transferred to the [facility] rehabilitation unit, where she continued to convalesce for several weeks. Several weeks postoperatively, Dr. Damon's staff removed the patient's surgical luisana, and the patient subsequently developed a dehiscence. She was referred to the [facility] for management of her right below-knee amputation stump incisional dehiscence. The patient had been using Neosporin and gauze topically. She had also been using a Coban wrap and had been fitted with a stump holder pile driving by [employer]. The patient's multiple pre-existing medical conditions are listed elsewhere. Of note, she underwent right breast needle biopsy on November 26, 2023, which was indicative of invasive ductal carcinoma. She is under the care of other providers for management of this recent diagnosis, including her surgeon, Dr. Knapp. Laboratory results obtained on December 03, 2023, were as follows: Sodium 139, potassium 4.0, chloride 106, BUN 21, creatinine 1.21, glucose 120, calcium 9.1, total bilirubin 0.60, AST 23, ALT 29, alkaline phosphatase 103, total protein 7.1, albumin 3.7. ON LICENSE OF [facility] Medical History Tinea cruris Non-pressure chronic ulcer of right calf with fat layer exposed Wears glasses Post-menopausal Cancer Anxiety Open wound Thyroid disease Insulin dependent diabetes mellitus Uses wheelchair Fatty liver High cholesterol Dietary restriction Non-smoker History of edema History of echocardiogram History of stress test Cardiology follow-up encounter Surgical wound dehiscence Right leg swelling History of endometrial cancer Rheumatoid arthritis Diverticulosis Chronic renal failure, stage 3 (moderate) Pulmonary hypertension GERD (gastroesophageal reflux disease) Hyperlipidemia History of kidney stones Breast cancer in female Morbid obesity with BMI of 50.0-59.9, adult Hydronephrosis Ureteral calculus Charcot ankle Diabetic neuropathy Morbid obesity with BMI of 50.0-59.9, adult Diverticulosis Diabetes mellitus, type 2 Chronic renal failure (CRF), stage 3a Anemia Rheumatoid arthritis Chronic pain CPAP (continuous positive airway pressure) dependence Pulmonary hypertension BRITT (obstructive sleep apnea) Thyromegaly Hx of supraventricular tachycardia Nephrolithiasis Rosacea Fatty liver External hemorrhoid GERD without esophagitis Benign essential HTN Bilateral carpal tunnel syndrome Hyperlipidemia Low vitamin B12 level Multinodular goiter Tubular adenoma Adenocarcinoma of endometrium Home Medications ?Medication ?Instructions ?Recorded ?Last Taken ?Type aspirin 81 mg tablet,delayed 81 mg PO DAILY Heart health 01/11/16 12/22/23 History release cetirizine 10 mg capsule 10 mg PO DAILY Allergies 01/11/16 Unknown History metoprolol succinate 100 mg 100 mg PO DAILY BP 01/11/16 07/03/17 History tablet,extended release 24 hr multivitamin 1 ea PO DAILY Supplement 01/11/16 Unknown History omeprazole 40 mg capsule,delayed 40 mg PO DAILY GERD 01/11/16 07/03/17 History release simvastatin 20 mg tablet 20 mg PO QHS Cholestrol 01/11/16 Unknown History cyanocobalamin (vitamin B-12) 1,000 mcg PO DAILY Supplement 07/02/17 Unknown History 1,000 mcg sublingual tablet hydroxychloroquine 200 mg tablet 200 mg PO BID Platelets 04/28/18 Unknown History (Plaquenil) pregabalin 150 mg capsule (Lyrica) 150 mg PO QHS Nerve pain 06/14/18 Unknown History ferrous sulfate 325 mg (65 mg 325 mg PO DAILY supplement 04/25/20 Unknown History iron) tablet (Feosol) allopurinol 100 mg tablet 100 mg PO DAILY #30 tabs 11/18/23 Unknown Rx ascorbic acid (vitamin C) 500 mg 1,000 mg (2 x 500 mg) PO DAILY #30 11/18/23 Unknown Rx tablet tabs calcium carbonate (Oyster Shell 500 mg PO BREAKFAST #30 tabs 11/18/23 Unknown Rx Calcium 500) insulin regular hum U-500 conc 500 See Rx Instructions .Route 11/18/23 Unknown Rx unit/mL(3 mL) subcut pen .COMPLEX Blood sugar 30 days #5 pens pregabalin 100 mg capsule (Lyrica) 100 mg PO BID #60 caps 11/19/23 Unknown Rx blood sugar diagnostic (OneTouch #100 ea 12/03/23 Unknown Rx Ultra Test strips) blood-glucose sensor (Dexcom G6 #9 ea 12/03/23 Unknown Rx Sensor device) blood-glucose transmitter (Dexcom #1 ea 12/03/23 Unknown Rx G6 Transmitter device) bupropion HCl 300 mg 24 hr tablet, 300 mg PO DAILY #90 tabs 12/03/23 Unknown Rx extended release losartan 50 mg tablet (Cozaar) 50 mg PO DAILY #90 tabs 12/03/23 Unknown Rx OneTouch Delica Plus Lancet 33 #100 ea 12/04/23 Unknown Rx gauge (lancets) blood sugar diagnostic (OneTouch #100 ea 12/04/23 Unknown Rx Ultra Test strips) buspirone 5 mg tablet 5 mg PO TID #90 tabs 12/11/23 Unknown Rx alprazolam 0.5 mg tablet (Xanax) 0.5 mg PO TID PRN PRN panic attack 12/25/23 Unknown History fiber 1 cap PO DAILY 12/25/23 Unknown History oxycodone 5 mg capsule 5 mg PO Q6H PRN PRN pain 12/25/23 Unknown History clotrimazole-betamethasone 1 applic topical BID 01/23/24 Unknown History %-0.05 % topical cream nitrofurantoin 100 mg PO Q12 #14 CAPSULES 01/23/24 Unknown Rx monohydrate/macrocrystals 100 mg capsule nystatin 100,000 unit/gram topical topical BID 01/23/24 Unknown History ointment nystatin 100,000 unit/gram topical 1 applic topical BID 10 days #30 01/23/24 Unknown Rx powder (Klayesta) grams insulin lispro 100 unit/mL 3 unit (0.03 mL) subcut TID PRN 02/04/24 Unknown Rx subcutaneous pen elevated BS #15 mL levothyroxine 300 mcg tablet 300 mcg PO .qd, 2 on Thursday #30 02/18/24 Unknown Rx tabs anastrozole 1 mg tablet (Arimidex) 1 mg PO DAILY #90 tabs 02/24/24 Unknown Rx Allergy/AdvReac Type Severity Reaction Status Date / Time No Known Allergies Allergy Verified 01/23/24 08:55 Family History Mother Ovarian cancer Hypertension Arthritis Uterine cancer Fibrocystic disease of breast Hypothyroid Father , Age 86-CHF Hypertension Arthritis Diverticulitis of colon Depression CAD (coronary artery disease) Sister Hypertension Depression CVA (cerebral vascular accident) Fibrocystic disease of breast Diabetes Bleeding disorder Portal hypertension Surgical History Hx of cystoscopy Hx of total thyroidectomy History of tonsillectomy History of carpal tunnel release History of cardiac radiofrequency ablation History of total abdominal hysterectomy and bilateral salpingo-oophorectomy History of below-knee amputation S/P cystoscopy with ureteral stent placement History of right below knee amputation History of hand surgery H/O cardiac radiofrequency ablation (02/15/13) History of right and left heart catheterization (07/03/17) H/O colonoscopy H/O abdominal hysterectomy H/O carpal tunnel repair Previous section History of tonsillectomy Hx of cholecystectomy Surgical menopause Social History Smoking Status: Never smoker second hand exposure: No alcohol intake: never substance use type: does not use caffeine: No Vital Signs Vital Signs Vital Signs: Weight Weight: 335 lb Body Mass Index (BMI) 54.1 Physical Exam Narrative ECOG 2, seen in a wheelchair Const alert, oriented x3 and no apparent distress Constitutional Narrative: The patient is morbidly obese. Her BMI is 54.1. General Appearance: cooperative, comfortable, well kempt and well developed Orientation / Consciousness: awake, oriented to person, oriented to place and oriented to time Exam Limitations: no limitations Nutritional Appearance: morbidly obese HEENT normocephalic and head/scalp atraumatic Head and Scalp: normal to inspection Nose: external nose normal External Ear: external ears normal Eyes EOMs intact bilaterally General Eye: normal appearance of both eyes Neck full ROM Resp normal respiratory effort, normal air movement, no retractions and no use of accessory muscles Effort and Inspection: able to speak in complete sentences Skin Skin Narrative: The patient has a severe erythematous rash in her perineal area and in the crural regions of the groin. Wound Narrative: A right below-knee amputation is noted. One dehiscent wound on the right BKA incision persists. This wound demonstrates significant improvement, with a decrease in size and depth. Dimensions are documented elsewhere. The wound is pink and healthy in appearance, with a small amount of bioburden. There is evidence of peripheral epithelialization. There is no sign of infection or cellulitis. Neuro oriented x3, CN's II-XII intact bilaterally, moves all extremities, no focal motor deficits and no sensory deficits noted Sensorium / Orientation: awake, alert, oriented to person, oriented to place and oriented to time Speech: speech normal Psych mental status grossly normal and thought process normal Attitude: calm and engaged Activity / Motor Behavior: appropriate eye contact Speech: normal speech Thought Process: normal thought process Attention / Concentration: attention grossly intact Debridement Note Debridement Note Wound debrided: Dehiscent right below-knee amputation stump incision Laterality: Right Type of Debridement: Excisional debridement Anesthesia Used: 5% Lidocaine Gel Depth: Down to and including healthy tissue and in the subcutaneous layer Percentage of wound debrided: 100 Instrument Used: 5mm curette Tissue Removed: Bioburden Severity: Fat Layer Exposed Amount of bleeding with debridement: Mild Bleeding Controlled with: Compression and gauze Patient tolerated procedure: Patient tolerated procedure well Debridement Free Text: An excisional debridement was performed, and was tolerated well by the patient. Having obtained preauthorization for the use of a skin substitute, a TheraSkin allograft was selected for application today. This is the 3rd such application of an allograft. A 1 inch x 1 inch TheraSkin fenestrated allograft was selected. This is a 6 cm? allograft. The allograft was removed from its sterile packaging following the appropriate preparation. It was then placed in the appropriate orientation topically on the patient's dehiscent wound. The size of the allograft was appropriate, covering the entire open wound without excess. 100% of the allograft was utilized. Once in place, the allograft was secured at its periphery using Dermabond. Adaptic Touch was then placed, and secured using Steri-Strips. The Wound VAC was then carefully applied. It is to continue at 125 mmHg continuous suction, to be changed twice a week. Post-Debridement Measurements and Additional Note: Post-Debridement Measurements/Treatment JIA - Nurse 1 - General Ulcer Assessment Start: 01/26/24 13:06 Freq: Status: Active Protocol: MATT Activity Type Activity Date Activity User E-sign Co-sign Detail Recorded Client Recorded Date Recorded By Document 01/26/24 13:08 KW z 01/26/24 13:20 KW Document 02/02/24 15:07 DL [id number] 02/02/24 15:18 DL Document 02/09/24 13:39 RB wound 02/09/24 13:44 RB Document 02/16/24 16:00 RB wound 02/16/24 16:02 RB Document 02/19/24 09:03 DS 1 02/19/24 09:04 DS Document 02/23/24 16:09 RB wound 02/23/24 16:11 RB 01/26/24 02/02/24 02/09/24 13:08 15:07 13:39 WC - Today's Visit Information Type of service Follow-up Visit Follow-up Visit Follow-up Visit (Physician/AIRCRAFT DELIVERY CHECKER (Physician/AIRCRAFT DELIVERY CHECKER (Physician/AIRCRAFT DELIVERY CHECKER ) ) ) Arrival Mode Wheelchair Ambulatory, Wheelchair Wheelchair Transfer Assistance None None Accompanied by Patient Identification Verified (Name & Yes Yes Yes ) Patient Requires Transmission-Based No No Precautions Safety Precautions Finger Stick Blood Sugar(mg/dl) (if 175 indicated): Blood Sugar Stated by Patient Height and Weight Body Mass Index (BMI) 54.1 54.1 54.1 BMI Classification Obese Obese Obese Vital Signs Temperature (97.8 F-99.1 F) 97.2 F L 98.2 F 97.6 F L Temperature Source Temporal Temporal Temporal Pulse Rate (60-100) 74 78 76 Pulse Location Monitor Monitor Respiratory Rate (12-18) 18 20 H 18 Respiratory rate source Observation Observation Observation Oxygen Delivery Method Room Air Blood Pressure (90/60-120/80) 120/43 L 128/48 H 144/57 H Blood Pressure Mean 68 74 86 Source Monitor Monitor Monitor Position Semi-Fowlers Semi-Fowlers Blood Pressure Location Left Arm Left Arm History Since Last Visit- (Skip if this is Patient's initial visit) Have you changed medications since your No No No last visit? Any new allergies or adverse reactions No No No Had a fall/change in ADL's that may No No No increase risk of falls Signs or symptoms of abuse and/or No No No neglect since last visit Have you been in the hospital since your Yes No No last visit? Has dressing in place as prescribed Yes Yes Yes Has compression in place as prescribed Yes Yes Yes Has offloadiing in place as prescribed Yes Yes No Experienced any changes in pain level or No No No management Left Footwear Regular Shoe Right Footwear No Footwear No Footwear Pain Scale: 0-10 Numeric Is Patient Pain Free? Yes Yes Yes 02/16/24 02/19/24 02/23/24 16:00 09:03 16:09 - Today's Visit Information Type of service Follow-up Visit Nurse-only Follow-up Visit (Physician/AIRCRAFT DELIVERY CHECKER Visit (Physician/AIRCRAFT DELIVERY CHECKER ) ) Arrival Mode Ambulatory Walker, Ambulatory Wheelchair Transfer Assistance None None Accompanied by Patient Identification Verified (Name & Yes Yes ) Patient Requires Transmission-Based No No Precautions Safety Precautions Fall Prevention Finger Stick Blood Sugar(mg/dl) (if indicated): Blood Sugar Height and Weight Body Mass Index (BMI) 54.1 54.1 54.1 BMI Classification Obese Obese Obese Vital Signs Temperature (97.8 F-99.1 F) 96 F L 97.5 F L 97 F L Temperature Source Temporal Temporal Temporal Pulse Rate (60-100) 76 76 69 Pulse Location Monitor Monitor Monitor Respiratory Rate (12-18) 18 18 18 Respiratory rate source Observation Observation Observation Oxygen Delivery Method Room Air Blood Pressure (90/60-120/80) 119/55 L 142/56 H 133/55 H Blood Pressure Mean 76 84 81 Source Monitor Monitor Monitor Position Semi-Fowlers Sitting Semi-Fowlers Blood Pressure Location Left Arm Right Arm Left Arm History Since Last Visit- (Skip if this is Patient's initial visit) Have you changed medications since your No No last visit? Any new allergies or adverse reactions No No Had a fall/change in ADL's that may No No increase risk of falls Signs or symptoms of abuse and/or No No neglect since last visit Have you been in the hospital since your No No last visit? Has dressing in place as prescribed Yes Yes Has compression in place as prescribed No No Has offloadiing in place as prescribed No No Experienced any changes in pain level or No No management Left Footwear Right Footwear Pain Scale: 0-10 Numeric Is Patient Pain Free? Yes Yes Yes - Nurse 1 - General Ulcer Measurement Start: 01/26/24 13:06 Freq: Status: Active Protocol: Activity Type Activity Date Activity User E-sign Co-sign Detail Recorded Client Recorded Date Recorded By Document 01/26/24 13:08 KW z 01/26/24 13:20 KW Document 02/02/24 15:07 DL [id number] 02/02/24 15:18 DL Document 02/09/24 13:39 RB wound 02/09/24 13:44 RB Document 02/16/24 16:00 RB wound 02/16/24 16:02 RB Document 02/23/24 16:09 RB wound 02/23/24 16:11 RB 01/26/24 02/02/24 02/09/24 13:08 15:07 13:39 Wound Center Nurse 1 #2inferior medial stump -Combined with other wound No -Current Size (cm) - Length 2.5 0.2 0 -Current Size (cm) - Width 3.5 0.2 0 -Current Size (cm) - Depth 0.1 0.2 0 -Total Square Cm 8.75 0.04 0 -Date of Last Picture (Recall this 01/26/24 field) -Photo Taken Yes -Epithelialization Large 67-100% -Exudate Amt Small Small -Exudate Type Serosanguineous Serosanguineous -Wound Margin Distinct, Distinct, Outline Outline Attached Attached -Granulation Amt Large (67-100%) Small (1-33%) -Granulation Quality Red Red -Necrosis Amt Small (1-33%) None Present (0 %) -Necrotic Tissue Type Adherent Slough -Structure Exposed N/A -Texture (Fadumo-wound Skin Appearance) Assessed Scarring -Moisture (Fadumo-wound Skin Appearance) Assessed No Abnormality -Color (Fadumo-wound Skin Appearance) Assessed No Abnormality -Temperature (Fadumo-wound Skin No Abnormality No Abnormality Appearance) (Pt Warm) (Pt Warm) -Tenderness on Palpation (Fadumo-wound No Skin Appearance) -Ulcer Cleansing Soap and Water Soap and Water -Foul Odor after Cleansing No No -Anesthetic Used 5% Lidocaine 5% Lidocaine Gel Gel #1 RT superior stump -Combined with other wound No -Current Size (cm) - Length 0.2 2.7 2.4 -Current Size (cm) - Width 0.2 2.7 3.3 -Current Size (cm) - Depth 0.1 0.1 0.1 -Total Square Cm 0.04 7.29 7.92 -Date of Last Picture (Recall this 01/26/24 field) -Photo Taken Yes -Tunneling No -Undermining/Tunneling No -Circular Undermining No -Exudate Amt Small Medium Large -Exudate Type Serosanguineous Serosanguineous Serosanguineous -Wound Margin Distinct, Distinct, Distinct, Outline Outline Outline Attached Attached Attached -Granulation Amt Large (67-100%) Medium (34-66%) -Granulation Quality [place] -Slough/Fibrin Yes -Necrosis Amt Large (67-100%) None Present (0 Medium (34-66%) %) -Necrotic Tissue Type Adherent Slough Adherent Slough -Structure Exposed N/A N/A -Texture (Fadumo-wound Skin Appearance) Assessed Scarring Assessed -Moisture (Fadumo-wound Skin Appearance) Assessed No Abnormality Assessed -Color (Fadumo-wound Skin Appearance) Assessed No Abnormality Assessed -Temperature (Fadumo-wound Skin No Abnormality No Abnormality No Abnormality Appearance) (Pt Warm) (Pt Warm) (Pt Warm) -Tenderness on Palpation (Fadumo-wound No No Skin Appearance) -Ulcer Cleansing Soap and Water Soap and Water Wound Cleanser -Foul Odor after Cleansing No No No -Anesthetic Used 5% Lidocaine 5% Lidocaine 5% Lidocaine Gel Gel Gel -Wound Comment(s) 02/16/24 02/23/24 16:00 16:09 Wound Center Nurse 1 #2inferior medial stump -Combined with other wound No -Current Size (cm) - Length -Current Size (cm) - Width -Current Size (cm) - Depth -Total Square Cm -Date of Last Picture (Recall this field) -Photo Taken -Epithelialization -Exudate Amt -Exudate Type -Wound Margin -Granulation Amt -Granulation Quality -Necrosis Amt -Necrotic Tissue Type -Structure Exposed -Texture (Fadumo-wound Skin Appearance) -Moisture (Fadumo-wound Skin Appearance) -Color (Fadumo-wound Skin Appearance) -Temperature (Fadumo-wound Skin Appearance) -Tenderness on Palpation (Fadumo-wound Skin Appearance) -Ulcer Cleansing -Foul Odor after Cleansing -Anesthetic Used #1 RT superior stump -Combined with other wound No No -Current Size (cm) - Length 2 0.1 -Current Size (cm) - Width 3 0.1 -Current Size (cm) - Depth 0.1 0.1 -Total Square Cm 6 0.01 -Date of Last Picture (Recall this field) -Photo Taken -Tunneling No No -Undermining/Tunneling No No -Circular Undermining No No -Exudate Amt Medium Medium -Exudate Type Serosanguineous Serosanguineous -Wound Margin Distinct, Distinct, Outline Outline Attached Attached -Granulation Amt Medium (34-66%) Medium (34-66%) -Granulation Quality [place] -Slough/Fibrin Yes Yes -Necrosis Amt Medium (34-66%) Medium (34-66%) -Necrotic Tissue Type Adherent Slough Adherent Slough -Structure Exposed N/A N/A -Texture (Fadumo-wound Skin Appearance) Assessed, Assessed, Scarring Scarring -Moisture (Fadumo-wound Skin Appearance) Assessed Assessed -Color (Fadumo-wound Skin Appearance) Assessed Assessed -Temperature (Fadumo-wound Skin No Abnormality No Abnormality Appearance) (Pt Warm) (Pt Warm) -Tenderness on Palpation (Fadumo-wound No No Skin Appearance) -Ulcer Cleansing Wound Cleanser Wound Cleanser -Foul Odor after Cleansing No No -Anesthetic Used 5% Lidocaine Gel -Wound Comment(s) theraskin and veil left in place WC - Nurse 2 - General Ulcer CM Notes Start: 01/26/24 13:06 Freq: Status: Active Protocol: Activity Type Activity Date Activity User E-sign Co-sign Detail Recorded Client Recorded Date Recorded By Document 01/26/24 13:32 [id number] [id number] 01/26/24 13:38 JF Document 02/02/24 15:58 JF 000 02/02/24 16:03 JF Document 02/09/24 14:08 DS 1 02/09/24 14:15 DS Edit Result 02/09/24 14:08 DS (1) 02/17/24 08:09 DS Edit Result 02/09/24 14:08 DS (2) 1 02/17/24 08:11 DS Edit Result 02/09/24 14:08 DS (3) 02/19/24 16:29 DS Document 02/16/24 16:05 DS 1 02/16/24 16:20 DS Edit Result 02/16/24 16:05 DS (4) 1 02/17/24 08:09 DS Edit Result 02/16/24 16:05 DS (5) 1 02/19/24 16:29 DS Document 02/23/24 16:40 JF 0000 02/23/24 16:42 JF (1) #1 RT superior stump - Ulcer Cleansing => Rinsed/Irrigated => with Saline - Bioengineered Tissue => Yes - Apply Skin Sub - 1st 25 sq cm - Legs => 1 (2) #2inferior medial stump - Time 14:00 => - Correct Patient Yes => - Correct Side, Site, Position Yes => - Correct Procedure Yes => - Procedure Performed Yes => - Type of Procedure Debridement => - Clinical Debridement Subcutaneous => - Tissue Removed Subcutaneous => - Post Debridement (cm) - Length 0.1 => - Post Debridement (cm) - Width 0.1 => - Post Debridement (cm) - Depth 0.1 => - Total Square (Post) (cm) 0.01 => - Area of Debridement (cm) - Length 0.1 => - Area of Debridement (cm) - Width 0.1 => - Total Square (Area) (cm) 0.01 => - Wound/Ulcer Outcome Not Healed => Healed- => Epithelialized - Bleeding Controlled with Pressure => - Treatment Response Procedure => Tolerated Well => - Debridement - Subq, 1st 20sq cm No => - Theraskin - 100TSXS (6 SQ CM) (per sq 6 => cm) (3) #1 RT superior stump - Expiration Date => 09/18/28 - Product Lot Number => [id number] - Percent Used => 100 - Lot number of Saline Used => [id number] (4) #1 RT superior stump - Ulcer Cleansing => Rinsed/Irrigated => with Saline (5) #1 RT superior stump - Expiration Date => 10/09/28 - Product Lot Number = [id number] - Percent Used => 100 - Lot number of Saline Used => [id number] 01/26/24 02/02/24 02/09/24 13:32 15:58 14:08 Wound Center [facility] -Time 13:33 15:58 -Correct Patient Yes No -Correct Side, Site, Position Yes No -Correct Procedure Yes No -Procedure Performed Yes No -Type of Procedure Debridement -Clinical Debridement Subcutaneous -Tissue Removed Subcutaneous -Post Debridement (cm) - Length 0.4 0.1 -Post Debridement (cm) - Width 0.5 0.1 -Post Debridement (cm) - Depth 0 0.1 -Total Square (Post) (cm) 0.20 0.01 -Area of Debridement (cm) - Length 0.4 0.1 -Area of Debridement (cm) - Width 0.5 0.1 -Total Square (Area) (cm) 0.20 0.01 -Tunneling No No No -Undermining/Tunneling No No No -Circular Undermining No No No -Wound/Ulcer Outcome Not Healed Not Healed Healed- Epithelialized -Ulcer Cleansing Rinsed/ Rinsed/ Irrigated with Irrigated with Saline Saline -Foul Odor after Cleansing No No -Bioengineered Tissue No No -Bleeding Controlled with Pressure Pressure -Treatment Response Procedure Procedure Tolerated Well Tolerated Well -Offloading No No -Debridement - Subq, 1st 20sq cm No No #1 RT superior stump -Time 13:38 15:59 14:00 -Correct Patient Yes Yes Yes -Correct Side, Site, Position Yes Yes Yes -Correct Procedure Yes Yes Yes -Procedure Performed Yes Yes Yes -Type of Procedure Debridement Debridement Debridement -Clinical Debridement Subcutaneous Subcutaneous Subcutaneous -Tissue Removed Subcutaneous Subcutaneous Subcutaneous -Post Debridement (cm) - Length 2.4 2.4 2.4 -Post Debridement (cm) - Width 3.3 2.4 2.8 -Post Debridement (cm) - Depth 0.2 0.2 0.2 -Total Square (Post) (cm) 7.92 5.76 6.72 -Area of Debridement (cm) - Length 2.4 2.4 2.4 -Area of Debridement (cm) - Width 3.3 2.4 2.8 -Total Square (Area) (cm) 7.92 5.76 6.72 -Tunneling No No No -Undermining/Tunneling No No No -Circular Undermining No No No -Wound/Ulcer Outcome Not Healed Not Healed Not Healed -Ulcer Cleansing Rinsed/ Rinsed/ Rinsed/ Irrigated with Irrigated with Irrigated with Saline Saline Saline -Foul Odor after Cleansing No No -Bioengineered Tissue No No Yes -Type of Bioengineered Tissue [employer] -Expiration Date 09/18/28 -Product Lot Number [id number] -Percent Used 100 -Lot number of Saline Used [id number] -Bleeding Controlled with Pressure Pressure Pressure -Treatment Response Procedure Procedure Procedure Tolerated Well Tolerated Well Tolerated Well -Offloading No No -Debridement - Subq, 1st 20sq cm Yes Yes No -Apply Skin Sub - 1st 25 sq cm - Legs 1 -Theraskin - 100TSXS (6 SQ CM) (per sq 6 cm) Pain Scale: 0-10 Numeric Is Patient Pain Free? Yes Yes Yes 02/16/24 02/23/24 16:05 16:40 Wound Center Nurse 2 #2inferior medial stump -Time -Correct Patient -Correct Side, Site, Position -Correct Procedure -Procedure Performed -Type of Procedure -Clinical Debridement -Tissue Removed -Post Debridement (cm) - Length -Post Debridement (cm) - Width -Post Debridement (cm) - Depth -Total Square (Post) (cm) -Area of Debridement (cm) - Length -Area of Debridement (cm) - Width -Total Square (Area) (cm) -Tunneling -Undermining/Tunneling -Circular Undermining -Wound/Ulcer Outcome -Ulcer Cleansing -Foul Odor after Cleansing -Bioengineered Tissue -Bleeding Controlled with -Treatment Response -Offloading -Debridement - Subq, 1st 20sq cm #1 RT superior stump -Time 16:07 16:41 -Correct Patient Yes Yes -Correct Side, Site, Position Yes Yes -Correct Procedure Yes Yes -Procedure Performed Yes Yes -Type of Procedure Debridement Debridement -Clinical Debridement Subcutaneous Subcutaneous -Tissue Removed Subcutaneous Subcutaneous -Post Debridement (cm) - Length 2.4 2.3 -Post Debridement (cm) - Width 1.9 2.3 -Post Debridement (cm) - Depth 0.1 0.1 -Total Square (Post) (cm) 4.56 5.29 -Area of Debridement (cm) - Length 2.4 2.3 -Area of Debridement (cm) - Width 1.9 2.3 -Total Square (Area) (cm) 4.56 5.29 -Tunneling No No -Undermining/Tunneling No No -Circular Undermining No No -Wound/Ulcer Outcome Not Healed Not Healed -Ulcer Cleansing Rinsed/ Rinsed/ Irrigated with Irrigated with Saline Saline -Foul Odor after Cleansing No -Bioengineered Tissue Yes Yes -Type of Bioengineered Tissue Ther[employer]in [employer]in -Expiration Date 10/09/28 10/09/28 -Product Lot Number [id number] -Percent Used 100 100 -Lot number of Saline Used [id number] -Bleeding Controlled with Pressure Pressure -Treatment Response Procedure Procedure Tolerated Well Tolerated Well -Offloading No -Debridement - Subq, 1st 20sq cm No No -Apply Skin Sub - 1st 25 sq cm - Legs 1 1 -Theraskin - 100TSXS (6 SQ CM) (per sq 6 6 cm) Pain Scale: 0-10 Numeric Is Patient Pain Free? Yes Yes WC - Nurse 3 - General Ulcer D/C NN Start: 01/26/24 13:06 Freq: Status: Active Protocol: Activity Type Activity Date Activity User E-sign Co-sign Detail Recorded Client Recorded Date Recorded By Document 01/26/24 13:55 BMF [id number] 01/26/24 13:56 BMF Document 02/02/24 16:24 DL [email or web address] 02/02/24 16:27 DL Document 02/09/24 14:34 KW ; 02/09/24 14:35 KW Document 02/16/24 16:43 RB wound 02/16/24 16:44 RB Document 02/19/24 09:34 DS 1 02/19/24 09:35 DS Document 02/23/24 17:13 RB wound 02/23/24 17:15 RB 01/26/24 02/02/24 02/09/24 13:55 16:24 14:34 Wound Care Center Nurse 3 #2inferior medial stump -Ulcer Cleansing Rinsed/ Rinsed/ Irrigated with Irrigated with Saline Saline -Foul Odor after Cleansing No No -Negative Pressure Wound Therapy Continue -Setting (mmHg) 150 -Negative Pressure is Continuous -Primary Dressing Covered/Secured with Dry Gauze,Other -Other Covering Vac drape -NPWT Application Charge NPWT & Debridement (nc ) #1 RT superior stump -Ulcer Cleansing Rinsed/ Soap and Water Irrigated with Saline -Foul Odor after Cleansing No No -Negative Pressure Wound Therapy Continue Continue Continue -Setting (mmHg) 150 150 150 -Negative Pressure is Continuous Continuous Continuous -NPWT Application Charge NPWT - Multiple NPWT & NPWT & Locations Debridement (nc Debridement (nc ) ) -Wound Comment(s) dressing applied per KShi Swain Right -Compression Wrap Jozef Wrap Jozef Wrap -Other Treatment Response Procedure Procedure Tolerated Well Tolerated Well Pain Scale: 0-10 Numeric Is Patient Pain Free? Yes Yes Yes WC - Visit Discharge Discharge Condition Stable Stable Stable Ambulatory Status Walker, Ambulatory Wheelchair Wheelchair Transportation Private Auto Private Auto Private Auto Accompanied by Medication Reconcilliation completed & No provided to patient/care provider Clinical Summary of Care Provided Yes Facility Type Home Health Home Health Orders Sent Yes 02/16/24 02/19/24 02/23/24 16:43 09:34 17:13 Wound Care Center Nurse 3 #2inferior medial stump -Ulcer Cleansing -Foul Odor after Cleansing -Negative Pressure Wound Therapy -Setting (mmHg) -Negative Pressure is -Primary Dressing Covered/Secured with -Other Covering -NPWT Application Charge #1 RT superior stump -Ulcer Cleansing -Foul Odor after Cleansing -Negative Pressure Wound Therapy Continue Continue Continue -Setting (mmHg) 150 150 125 -Negative Pressure is Continuous Continuous Continuous -NPWT Application Charge NPWT & NPWT </= 50 sq NPWT & Debridement (nc cm ($) Debridement (nc ) ) -Wound Comment(s) veil steristrips intact vac applied over Right -Compression Wrap -Other jozef jzoef Treatment Response Procedure Procedure Tolerated Well Tolerated Well Pain Scale: 0-10 Numeric Is Patient Pain Free? Yes Yes Yes WC - Visit Discharge Discharge Condition Stable Stable Stable Ambulatory Status Wheelchair Walker, Wheelchair Wheelchair Transportation Private Auto Private Auto Private Auto Accompanied by Medication Reconcilliation completed & No Yes No provided to patient/care provider Clinical Summary of Care Provided Yes Yes Yes Facility Type Orders Sent Charges/Coding Procedures Integumentary [id number]: 09008 Skin sub graft trnk/arm/leg (Right Leg) Assessment/Plan Assessment/Plan (1) Non-pressure chronic ulcer of right calf with fat layer exposed: CODE(S): L97.212 - Non-pressure chronic ulcer of right calf with fat layer exposed (2) Surgical wound dehiscence: CODE(S): T81.31XA - Disruption of external operation (surgical) wound, not elsewhere classified, initial encounter QUALIFIERS: Encounter type: subsequent encounter Qualified Code(s): T81.31XD - Disruption of external operation (surgical) wound, not elsewhere classified, subsequent encounter (3) History of right below knee amputation: CODE(S): Z89.511 - Acquired absence of right leg below knee (4) Tinea cruris: CODE(S): B35.6 - Tinea cruris (5) Morbid obesity with BMI of 50.0-59.9, adult: CODE(S): E66.01 - Morbid (severe) obesity due to excess calories; Z68.43 - Body mass index [BMI] 50.0-59.9, adult (6) Diabetes mellitus, type 2: CODE(S): E11.9 - Type 2 diabetes mellitus without complications QUALIFIERS: Diabetes mellitus detention insulin use: with long term care social worker use Diabetes mellitus complication status: with kidney complications Diabetes mellitus complication detail: with chronic kidney disease Chronic kidney disease stage: stage 3 (moderate) Chronic kidney disease stage 3 subtype: stage 3a (GFR 45-59) Qualified Code(s): E11.22 - Type 2 diabetes mellitus with diabetic chronic kidney disease; N18.31 - Chronic kidney disease, stage 3a; Z79.4 - rat 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 (current) use of insulin (7) Below knee amputation: CODE(S): S88.119A - 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, unspecified lower leg, initial encounter QUALIFIERS: Encounter type: sequela Laterality: bilateral Qual ified Code(s): S88.111S - 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, right lower leg, sequela; S88.112S - 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, left lower leg, sequela (8) Hypothyroid: CODE(S): E03.9 - Hypothyroidism, unspecified QUALIFIERS: Hypothyroidism type: acquired Qualified Code(s): E03.9 - Hypothyroidism, unspecified (9) Benign essential HTN: CODE(S): I10 - Essential (primary) hypertension (10) Breast cancer in female: CODE(S): C50.919 - Malignant neoplasm of unspecified site of unspecified female breast QUALIFIERS: Breast location: unspecified site of breast Estrogen receptor status: positive Laterality: right Qualified Code(s): C50.911 - Malignant neoplasm of unspecified site of right female breast; Z17.0 - Estrogen receptor positive status [ER+] (11) History of kidney stones: CODE(S): Z87.442 - Personal history of urinary calculi (12) Physical debility: CODE(S): R53.81 - Other malaise (13) Hx of supraventricular tachycardia: CODE(S): Z86.79 - Personal history of other diseases of the circulatory system (14) Hyperlipidemia: CODE(S): E78.5 - Hyperlipidemia, unspecified (15) GERD (gastroesophageal reflux disease): CODE(S): K21.9 - Gastro-esophageal reflux disease without esophagitis (16) Pulmonary hypertension: CODE(S): I27.20 - Pulmonary hypertension, unspecified (17) Chronic renal failure, stage 3 (moderate): CODE(S): N18.30 - Chronic kidney disease, stage 3 unspecified (18) Diverticulosis: CODE(S): K57.90 - Diverticulosis of intestine, part unspecified, without perforation or abscess without bleeding (19) Rheumatoid arthritis: CODE(S): M06.9 - Rheumatoid arthritis, unspecified (20) History of endometrial cancer: CODE(S): Z85.42 - Personal history of malignant neoplasm of other parts of uterus (21) History of total abdominal hysterectomy and bilateral salpingo- oophorectomy: CODE(S): Z90.710 - Acquired absence of both cervix and uterus; Z90.722 - Acquired absence of ovaries, bilateral; Z90.79 - Acquired absence of other genital organ(s) (22) History of cardiac radiofrequency ablation: CODE(S): Z98.890 - Other specified postprocedural states (23) History of carpal tunnel release: CODE(S): Z98.890 - Other specified postprocedural states (24) History of tonsillectomy: CODE(S): Z90.89 - Acquired absence of other organs (25) Right leg swelling: CODE(S): M79.89 - Other specified soft tissue disorders PLAN: Plan This is a 63-year-old female with multiple pre-existing medical problems, who presented with a 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 She underwent right below-knee amputation on October 19, 2023 at [facility]. Upon removal of her surgical luisana, several weeks following surgery, she developed a surgical wound dehiscence. She was referred to the [facility] for definitive management. 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 The patient has been advised to elevate her right lower extremity to heart level as much as possible. She admits to sleeping on a flat mattress at night. Elevation will help to minimize swelling. A TheraSkin allograft was applied in our facility today. This is the 3rd such allograft application. Once applied, the wound VAC was applied as well, to be changed twice weekly. The wound VAC setting is 125 mmHg with continuous suction. Improvement has been observed since initiation of negative pressure wound therapy. It is hoped that the healing process will be expedited by the use of both negative pressure woun d therapy and allografts, as surgical mastectomy is anticipated in the near future, and awaits further wound healing. Thus far, the patient has shown good progress in healing. The patient has indicated that she has an appointment with her surgeon, Dr. Knapp, in the near future so a discussion regarding her impending breast surgery can be undertaken. Optimizing nutritional intake and glycemic control have been discussed. A nutritional supplement, such as Glucerna, would be appropriate. Wound cultures were obtained several weeks ago, and were positive for Enterobacter cloacae, Staphylococcus epidermidis, Enterococcus faecalis, Staphylococcus lugdunensis, anaerobic cocci, and Bacteroides fragilis. The patient was placed on Bactrim double strength twice daily orally for 10 days, and amoxicillin 500 mg p.o. orally twice daily for 10 days. The courses of antibiotics have been completed. Infection appears to have resolved. The wound remains pink and healthy with evidence of active granulation tissue. The patient recently developed severe tinea cruris in the perineal region and groin, which was successfully treated with nystatin powder and cornstarch. The patient is to follow-up in 1 week for reassessment. The patient indicates that her oncologist has implemented hormonal therapy. The decision to proceed with breast surgery will be deferred to Dr. Knapp. Total time: 26 minutes
--- NOTE | 2024-02-25 11:02 | WC ---
PHOTO 02/09/24 RIGHT STUMP
--- NOTE | 2024-02-25 11:03 | WC ---
PHOTO Tommy GOLDSTEIN (H) 02/09/2024
== END 2024-02-24 23:59 | disposition home or self-care (01) ==
LOC: WC 15:30
PROVIDERS: PCP Nurse Practitioner Family; Referring Provider Nurse Practitioner Family; Visit Provider Surgery
DX: E11.622 Type 2 diabetes mellitus with other skin ulcer (principal); L97.212 Non-pressure chronic ulcer of right calf with fat layer exposed; M06.9 Rheumatoid arthritis, unspecified; I27.20 Pulmonary hypertension, unspecified; E66.01 Morbid (severe) obesity due to excess calories; Z68.43 Body mass index [BMI] 50.0-59.9, adult; C50.911 Malignant neoplasm of unspecified site of right female breast; E11.610 Type 2 diabetes mellitus with diabetic neuropathic arthropathy; E11.22 Type 2 diabetes mellitus with diabetic chronic kidney disease; E11.29 Type 2 diabetes mellitus with other diabetic kidney complication; Z79.4 Long term (current) use of insulin; E11.42 Type 2 diabetes mellitus with diabetic polyneuropathy; N18.31 Chronic kidney disease, stage 3a; T81.31XD Disruption of external operation (surgical) wound, not elsewhere classified, subsequent encounter; Z79.811 Long term (current) use of aromatase inhibitors; Z82.3 Family history of stroke; D64.9 Anemia, unspecified; Z90.722 Acquired absence of ovaries, bilateral; Z80.41 Family history of malignant neoplasm of ovary; K57.90 Diverticulosis of intestine, part unspecified, without perforation or abscess without bleeding; B35.6 Tinea cruris; Z90.710 Acquired absence of both cervix and uterus; K21.9 Gastro-esophageal reflux disease without esophagitis; E89.0 Postprocedural hypothyroidism; E78.5 Hyperlipidemia, unspecified; Z17.0 Estrogen receptor positive status [ER+]; I12.9 Hypertensive chronic kidney disease with stage 1 through stage 4 chronic kidney disease, or unspecified chronic kidney disease; Z87.442 Personal history of urinary calculi; R53.81 Other malaise; Z86.79 Personal history of other diseases of the circulatory system; Z85.42 Personal history of malignant neoplasm of other parts of uterus; Z90.79 Acquired absence of other genital organ(s); M79.89 Other specified soft tissue disorders
CPT/HCPCS: 11042; 15271; 97605; Q4121

== ENCOUNTER 2024-03-15 15:07 | Observation (INO) | payer OTHER, SELFPAY ==
[2024-03-15] VITALS (17 sets, daily range): BP systolic 107–152; BP diastolic 52–68; PULSE 73–111; RESP 16–18; TEMP 36.2–37.4; O2SAT 95–98; BMI 54.8
--- NOTE | 2024-03-15 | IMM_PTH ---
PATIENT: KACY KEEN LOC: MS3 U#:[id number] AGE/SX: 63/F ROOM: [facility] RE03/15/[address]: Dr. Steffanie Knapp MD : 1960 BED: 1 DIS: 03/16/2024 SPEC #: [id number] RECD: 03/18/24 10:51 STATUS: SOUFlavia REQ #: [id number] [place]: 03/15/24 00:[address]: Steffanie Knapp DEPT: IMMUNOHISTOCHEMISTRY RECD BY: Estrada Heaton ENTERED: 03/18/24 10:52 SP TYPE: IMMUNO OTHR DR: Anabell De Leon, [facility], [facility]-C Tissues: A - Axillary lymph node, NOS B - Right breast, NOS Procedures: CALPONIN-1 (add) CK7 (add) CK8 (add) E-CAD (add) Pankeratin (initial) P40 (initial) PHYSICIAN & INSTITUTION [place] [id number] SPECIMEN INFORMATION: Tissue Source: A- Glenvil lymph node right axilla Clinical Info: Invasive ductal carcinoma of right breast in female Specimen Number: [id number] CPT code: 89296,22944 METHODOLOGY: Deparaffinized sections of prefer/formalin-fixed tissue or PAP/DQ stained slides are incubated with monoclonal/polyclonal antibodies/oligonucleotide probes. Localization is made via biotin free immunoperoxidase method. Appropriate controls are performed and reacted as expected. Results on target cell population are indicated in the following table: RESULTS: ANTIBODY / CLONE RESULT Block A1 AE1-3 (AE1/AE3/PCK26) negative CK7 (OV-TL12/30) negative Block [id number] AE1-3 (AE1/AE3/PCK26) negative CK7 (OV-TL12/30) negative Block A3 AE1-3 (AE1/AE3/PCK26) negative CK7 (OV-TL12/30) negative Block B12 E-Cad (ECH-6) positive CK8 ([id number]) positive Calponin-1 (JE936M) positive P40 (BC28) positive These tests were developed and their performance characteristics determined by [facility]. They may not have been cleared or approved by the U.S. Food and Drug Administration. The FDA has determined that such clearance or approval is not necessary. The above immunohistochemical/dualISH markers are ordered and reviewed by the Pathologist. INTERPRETATION: A. Right sentinel lymph node, biopsy: Two out of two lymph nodes, negative for metastatic carcinoma. B. Right breast, mastectomy: Focal intraductal hyperplasia without atypia. SJ/mr 03/21/2024
--- NOTE | 2024-03-15 09:24 | PCM.HP.BLA ---
History and Physical Date of Admission: 03/15/24 Date of Service: 03/02/24 MR#: [id number] Acct: [id number] Name: KACY KEEN Rep #: [id number] : 1960 Provider: Dr. Steffanie Knapp MD Age/Sex: 63/F Location: [facility] Status: Signed Intake Vital Signs 01/23/2408:55 03/02/2408:54 Height 5 ft 6 in 5 ft 6 in Weight: 325 lb BMI 52.4 BP 117/67 Blood Pressure Location Rt brachial Position Sitting Respiration 17 Pulse 74 Pulse Source Monitor Pulse Oximetry (%) 96 Oxygen Delivery Method room air Intake Visit Reasons: Discuss surgery Chief Complaint: Discuss surgery Is patient in pain?: No Allergies No Known Allergies Allergy (Verified 03/02/24 08:55) Medications ?Medication ?Instructions ?Recorded ?Confirmed ?Type aspirin 81 mg tablet,delayed 81 mg PO DAILY Heart health 01/11/16 03/02/24 History release cetirizine 10 mg capsule 10 mg PO DAILY Allergies 01/11/16 03/02/24 History metoprolol succinate 100 mg 100 mg PO DAILY BP 01/11/16 03/02/24 History tablet,extended release 24 hr multivitamin 1 ea PO DAILY Supplement 01/11/16 03/02/24 History omeprazole 40 mg capsule,delayed 40 mg PO DAILY GERD 01/11/16 03/02/24 History release simvastatin 20 mg tablet 20 mg PO QHS Cholestrol 01/11/16 03/02/24 History cyanocobalamin (vitamin B-12) 1,000 mcg PO DAILY Supplement 07/02/17 03/02/24 History 1,000 mcg sublingual tablet hydroxychloroquine 200 mg tablet 200 mg PO BID Platelets 04/28/18 03/02/24 History (Plaquenil) pregabalin 150 mg capsule (Lyrica) 150 mg PO QHS Nerve pain 06/14/18 03/02/24 History ferrous sulfate 325 mg (65 mg 325 mg PO DAILY supplement 04/25/20 03/02/24 History iron) tablet (Feosol) allopurinol 100 mg tablet 100 mg PO DAILY #30 tabs 11/18/23 03/02/24 Rx ascorbic acid (vitamin C) 500 mg 1,000 mg (2 x 500 mg) PO DAILY #30 11/18/23 03/02/24 Rx tablet tabs calcium carbonate (Oyster Shell 500 mg PO BREAKFAST #30 tabs 11/18/23 03/02/24 Rx Calcium 500) insulin regular hum U-500 conc 500 See Rx Instructions .Route 11/18/23 03/02/24 Rx unit/mL(3 mL) subcut pen .COMPLEX Blood sugar 30 days #5 pens pregabalin 100 mg capsule (Lyrica) 100 mg PO BID #60 caps 11/19/23 03/02/24 Rx blood sugar diagnostic (OneTouch #100 ea 12/03/23 03/02/24 Rx Ultra Test strips) blood-glucose sensor (Dexcom G6 #9 ea 12/03/23 03/02/24 Rx Sensor device) blood-glucose transmitter (Dexcom #1 ea 12/03/23 03/02/24 Rx G6 Transmitter device) bupropion HCl 300 mg 24 hr tablet, 300 mg PO DAILY #90 tabs 12/03/23 03/02/24 Rx extended release losartan 50 mg tablet (Cozaar) 50 mg PO DAILY #90 tabs 12/03/23 03/02/24 Rx OneTouch Delica Plus Lancet 33 #100 ea 12/04/23 03/02/24 Rx gauge (lancets) blood sugar diagnostic (OneTouch #100 ea 12/04/23 03/02/24 Rx Ultra Test strips) buspirone 5 mg tablet 5 mg PO TID #90 tabs 12/11/23 03/02/24 Rx alprazolam 0.5 mg tablet (Xanax) 0.5 mg PO TID PRN PRN panic attack 12/25/23 03/02/24 History fiber 1 cap PO DAILY 12/25/23 03/02/24 History oxycodone 5 mg capsule 5 mg PO Q6H PRN PRN pain 12/25/23 03/02/24 History clotrimazole-betamethasone 1 applic topical BID 01/23/24 03/02/24 History %-0.05 % topical cream nitrofurantoin 100 mg PO Q12 #14 CAPSULES 01/23/24 03/02/24 Rx monohydrate/macrocrystals 100 mg capsule nystatin 100,000 unit/gram topical topical BID 01/23/24 03/02/24 History ointment nystatin 100,000 unit/gram topical 1 applic topical BID 10 days #30 01/23/24 03/02/24 Rx powder (Klayesta) grams insulin lispro 100 unit/mL 3 unit (0.03 mL) subcut TID PRN 02/04/24 03/02/24 Rx subcutaneous pen elevated BS #15 mL levothyroxine 300 mcg tablet 300 mcg PO .qd, 2 on Thursday #30 02/18/24 03/02/24 Rx tabs anastrozole 1 mg tablet (Arimidex) 1 mg PO DAILY #90 tabs 02/24/24 03/02/24 Rx PFSH Medical History Tinea cruris Non-pressure chronic ulcer of right calf with fat layer exposed Wears glasses Post-menopausal Cancer Anxiety Open wound Thyroid disease Insulin dependent diabetes mellitus Uses wheelchair Fatty liver High cholesterol Dietary restriction Non-smoker History of edema History of echocardiogram History of stress test Cardiology follow-up encounter Surgical wound dehiscence Right leg swelling History of endometrial cancer Rheumatoid arthritis Diverticulosis Chronic renal failure, stage 3 (moderate) Pulmonary hypertension GERD (gastroesophageal reflux disease) Hyperlipidemia History of kidney stones Breast cancer in female Morbid obesity with BMI of 50.0-59.9, adult Hydronephrosis Ureteral calculus Charcot ankle Diabetic neuropathy Morbid obesity with BMI of 50.0-59.9, adult Diverticulosis Diabetes mellitus, type 2 Chronic renal failure (CRF), stage 3a Anemia Rheumatoid arthritis Chronic pain CPAP (continuous positive airway pressure) dependence Pulmonary hypertension BRITT (obstructive sleep apnea) Thyromegaly Hx of supraventricular tachycardia Nephrolithiasis Rosacea Fatty liver External hemorrhoid GERD without esophagitis Benign essential HTN Bilateral carpal tunnel syndrome Hyperlipidemia Low vitamin B12 level Multinodular goiter Tubular adenoma Adenocarcinoma of endometrium Surgical History Hx of cystoscopy Hx of total thyroidectomy History of tonsillectomy History of carpal tunnel release History of cardiac radiofrequency ablation History of total abdominal hysterectomy and bilateral salpingo-oophorectomy History of below-knee amputation S/P cystoscopy with ureteral stent placement History of right below knee amputation History of hand surgery H/O cardiac radiofrequency ablation (02/15/13) History of right and left heart catheterization (07/03/17) H/O colonoscopy H/O abdominal hysterectomy H/O carpal tunnel repair Previous section History of tonsillectomy Hx of cholecystectomy Surgical menopause Family History Mother Ovarian cancer Hypertension Arthritis Uterine cancer Fibrocystic disease of breast HypothyroidFather , Age 86-CHF Hypertension Arthritis Diverticulitis of colon Depression CAD (coronary artery disease)Sister Hypertension Depression CVA (cerebral vascular accident) Fibrocystic disease of breast Diabetes Bleeding disorder Portal hypertension Social History Smoking Status: Never smoker second hand exposure: No alcohol intake: never substance use type: does not use caffeine: No HPI HPI HPI: 63-year-old female here to discuss surgery for her right breast cancer again. Patient's right BKA infection has resolved, she still has a wound VAC in place but it is healing well. Patient was started on anastrozole by oncology after initial procedure was delayed due to the infection. ROS General General: Yes weight change and fatigue; No appetite, colon cancer, breast cancer or weakness HEENT HEENT: No difficulty swallowing, eye injury, eye surgery, swollen glands or hoarseness Endo Endocrine: Yes thyroid disease and diabetes mellitus; No thyroid cancer, Hair loss, heat intolerance or cold intolerance Skin Skin: No rash or changing moles Breast Breast: Yes right breast lump and abnormal US; No left breast lump, nipple discharge, breast pain, abnormal mammogram or breast enlargement Musc Musculoskeletal: Yes back problems and rheumatoid arthritis; No arthritis, gout or joint pain Cardio Cardiovascular: Yes high blood pressure; No murmur, pacemaker, heart disease, atrial fibrillation, heart attack, heart stent, palpitations, shortness of breat with exertion or chest pain Psych Psychiatric: Yes depression; No anxiety or hearing voices Resp Respiratory: No shortness of breath, Yes sleep apnea, Yes cough, No COPD, No asthma, No emphysema and No wheezing Gastro Gastrointestinal: No abdominal pain, No nausea or vomiting, No diarrhea, Yes constipation, No blood in stool, Yes acid reflux, Yes hemorrhoids, No ulcers, No gallbladder problem and No black,tarry stools Abdulaziz Hematologic: No blood thinners, No blood disorders, No bleeding, Yes anemia and No blood clots Neuro Neurologic: No system reviewed and no additional complaints, except as documented, No as per HPI, No abnormal gait, No abnormal hearing, No abnormal movements, No abnormal speech, No behavioral changes, No burning sensations, No confusion, No convulsions, No disequilibrium, No dizziness, No localized weakness, No frequent falls, No headache(s), No lack of coordination, No loss of vision, No memory loss, No numbness, No other visual disturbances, No radicular pain, No restless legs, No sensory deficit, No syncope, No tingling, No tremor(s), No weakness and No other Exam Const General: cooperative, comfortable and no acute distress Chest Other: Previous biopsy site well-healed?right breast Resp Effort & Inspection: normal respiratory effort Cardio Rate: regular rate GI Inspection: normal to inspection, non-distended and no incisions Extrem Other: Right BKA?dehiscence wound dressed with wound VAC in place Assessment and Plan Assessment and Plan (1) Invasive ductal carcinoma of right breast in female: Status: Acute Plan Patient will hold her aspirin as well as Ozempic prior to surgery. I have given the patient options for initial surgical treatment. Options are the following: lumpectomy followed by radiation therapy vs. mastectomy vs. mastectomy followed by immediate reconstruction. I have described the procedures to the patient. I have described the advantages and disadvantages of the options, but I have told the patient that among the options, the survival rate for breast cancer is the same. I have told the patient that with all the surgeries that a sentinel lymph node biopsy is required. I have described the procedure of sentinel lymph node biopsy to the patient. I have told the patient that if the biopsy is positive for metastatic disease, then a full axillary lymph node dissection is required. I have told the patient that adjuvant chemotherapy will be required should the lymph nodes reveal metastatic disease. Also, a full lymph node dissection will increase the risk for lymphedema, especially if there are 4 or more lymph nodes positive for metastatic disease and radiation to the axilla is also required. I have told the patient the risks of surgery, including but not limited to: infection, bleeding, scar tissue, seroma and persistent seroma, lymph leak, injury to any blood vessels, injury to any nerves (particularly the long thoracic, the thoracodorsal, and the second intercostal brachial and the resultant sequelae), lymphedema, cosmetic deformity, dysesthesias, wound infections, further surgery (especially if margins are not clear), complications of anesthesia, etc. the patient understands. Patient is still planning for a right mastectomy, sentinel lymph node biopsy with nuclear tracer and blue dye possible axillary node dissection. Patient is agreeable if only 1 or 2 nodes were positive not to proceed with an axillary node dissection however if 3 nodes were positive or nuclear tracer was unable to trace would proceed with axillary lymph node dissection. Patient no further question this time. Steffanie Knapp M.D. Pager: [phone] [facility] [address] [place] [address], [facility], [address] [place] [address] Office: [phone] Coding Level of Care Code Off vis,est,level 3 Diagnoses Invasive ductal carcinoma of right breast in female C50.911 03/02/24 0907 <Electronically signed by Steffanie Knapp MD> Date Steffanie Knapp MD
--- NOTE | 2024-03-15 09:44 | PCM.PRE.AN2 ---
ASA Classification* ASA Classification ASA Classification: 3 Assessment & Plan Anesthesia* Anesthesia Assessment Anesthesia Assessment: Discussed sedation and/or anesthesia options, risks, benefits, and alternatives with patient/parents/legal guardian/POA. Questions invited. The patient/parents/legal guardian/POA seems to understand and agrees to proceed with anesthesia plan. Reviewed the physical assessment, medical history, allergy history and patient home medications list prior to surgery/procedure/anesthetic and documented any changes. Performed airway and anesthesia risk assessments. Anesthesia Type Anesthesia Type: General History Source History Obtained from:: Patient and Chart Anesthesia Focused Assessment* Temperature: 98.8 F Pulse Rate: 95 Blood Pressure: 152/66 Respiratory Rate: 16 Pulse Ox: 98 Oxygen Delivery Method: Room Air Airway Assessment Mouth opens: >3 cm Mallampati Score: II Teeth Condition: Caps/Crowns (Multiple crowns all tight) Neck Range of motion (ROM): Full ROM Focused Labs Anesthesia Preop lab: CBC WBC 6.5 K/mm3 (4.4-11.0) 02/16/24 15:15 RBC 3.92 M/mm3 (4.2-5.4) L 02/16/24 15:15 Hgb 12.0 g/dL (12.0-15.0) 02/16/24 15:15 Hct 36.3 % (37-47) L 02/16/24 15:15 Plt Count 187 K/mm3 (150-450) 02/16/24 15:15 CHEMISTRY Potassium 3.8 mmol/L (3.5-5.1) 02/16/24 15:15 Sodium 139 mmol/L (136-145) 02/16/24 15:15 Magnesium 2.1 mg/dL (1.6-2.6) 10/28/23 05:35 Phosphorus 4.8 mg/dL (2.5-4.9) 10/23/23 05:38 BUN 20 mg/dL (7-18) H 02/16/24 15:15 Creatinine 1.05 mg/dL (0.55-1.02) H 02/16/24 15:15 Glucose 90 mg/dL (74-106) 02/16/24 15:15 POC Glucose 151 mg/dL (74-106) H 11/19/23 06:31 TSH 0.07 uIU/mL (0.358-3.74) L 02/16/24 15:15 COAG PT 14.4 SECONDS (11.7-14.9) 01/23/24 09:54 Pre-Assessment Diagnosis/Proposed Procedure Planned Operative Procedure(s): RIGHT MASTECTOMY WITH SENTIAL LYMPH NODE BIOPSY BLUE DYE RADIOTRACER POSS AXILLARY DISSECTION Anesthesia History 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 When Was Last Pacemaker Check QUESTION #4 FULL TEXT: You/Your Family Experience fever (hyperthermia) with Anesthesia Last Oral Intake Last Oral intake: Last Oral Intake NPO since Meds taken in AM with sips of water? 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 Female Yes 03/04/24 08:15 HX of Motion Sickness No 03/04/24 08:15 HX of N/V After Surgery No 03/04/24 08:15 Non-Smoker Yes 03/04/24 08:15 Duration of Surgery greater Yes 03/04/24 08:15 than 60 minutes Number of Risk Factors 3 03/04/24 08:15 PONV Score Moderate Risk 03/04/24 08:15 Height & Weight Height & Weight: Anesthesia: Height & Weight Height 5 ft 6 in 03/03/24 15:18 Respiratory Assessment Respiratory Assessment - special assemblies supervisor: Respiratory Tract Infection Hx - special assemblies supervisor Hx Respiratory Tract Infection No 03/04/24 08:15 STOP Sleep Apnea STOP Sleep Apnea - special assemblies supervisor: STOP Sleep Apnea - special assemblies supervisor Hx Hypertension Yes: CONTROLLED WITH MED 03/04/24 08:15 Hx Sleep Apnea Yes 03/04/24 08:15 CPAP Yes 03/04/24 08:15 BIPAP No 03/04/24 08:15 Do you snore loudly (louder than talking or can be heard Do you often feel tired/ fatigued/ sleepy during daytime? Has anyone observed you stop breathing during sleep? STOP Results Positive 03/04/24 08:15 QUESTION #5 FULL TEXT : Do you snore loudly (louder than talking or can be heard through closed doors)? 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 Specify any problems Hx of Preganancy in last 3 No 03/04/24 08:15 Months Nurse Filling Out Transfusion DSCHRIBER 03/04/24 08:15 & Questions: Date: 03/04/24 03/04/24 08:15 Time: 08:17 03/04/24 08:15 Patient unable to answer at this time (ie. confused, unrespo /Reproduction History /Reproductive History - special assemblies supervisor: /Reproductive Hx- special assemblies supervisor Hx Now No 03/04/24 08:15 Gestational Age (in weeks): EDC: Hx Hx Para Hx Section SAB No 03/04/24 08:15 Active Medications Active Medications: Current Medications Generic Name Dose Route Start Last Admin Trade Name Freq PRN Reason Stop Dose Admin Cefazolin Sodium 3 gm/ Sodium 115 mls @ 150 mls/hr 03/15/24 11:30 Chloride IV 03/15/24 12:15 PREOP ONE Lactated Ringer's 1,000 mls @ 15 mls/hr 03/15/24 09:00 IV .Q48H NIELS PFSH Medical History Tinea cruris Non-pressure chronic ulcer of right calf with fat layer exposed Wears glasses Post-menopausal Cancer Anxiety Open wound Thyroid disease Insulin dependent diabetes mellitus Uses wheelchair Fatty liver High cholesterol Dietary restriction Non-smoker History of edema History of echocardiogram History of stress test Cardiology follow-up encounter Surgical wound dehiscence Right leg swelling History of endometrial cancer Rheumatoid arthritis Diverticulosis Chronic renal failure, stage 3 (moderate) Pulmonary hypertension GERD (gastroesophageal reflux disease) Hyperlipidemia History of kidney stones Breast cancer in female Morbid obesity with BMI of 50.0-59.9, adult Hydronephrosis Ureteral calculus Charcot ankle Diabetic neuropathy Morbid obesity with BMI of 50.0-59.9, adult Diverticulosis Diabetes mellitus, type 2 Chronic renal failure (CRF), stage 3a Anemia Rheumatoid arthritis Chronic pain CPAP (continuous positive airway pressure) dependence Pulmonary hypertension BRITT (obstructive sleep apnea) Thyromegaly Hx of supraventricular tachycardia Nephrolithiasis Rosacea Fatty liver External hemorrhoid GERD without esophagitis Benign essential HTN Bilateral carpal tunnel syndrome Hyperlipidemia Low vitamin B12 level Multinodular goiter Tubular adenoma Adenocarcinoma of endometrium Home Medications ?Medication ?Instructions ?Recorded ?Last Taken ?Type aspirin 81 mg tablet,delayed 81 mg PO DAILY Heart health 01/11/16 03/06/24 History release cetirizine 10 mg capsule 10 mg PO DAILY Allergies 01/11/16 03/15/24 History metoprolol succinate 100 mg 100 mg PO DAILY BP 01/11/16 03/15/24 History tablet,extended release 24 hr multivitamin 1 ea PO DAILY Supplement 01/11/16 03/14/24 History omeprazole 40 mg capsule,delayed 40 mg PO DAILY GERD 01/11/16 03/15/24 History release simvastatin 20 mg tablet 20 mg PO QHS Cholestrol 01/11/16 03/14/24 History cyanocobalamin (vitamin B-12) 1,000 mcg PO DAILY Supplement 07/02/17 03/14/24 History 1,000 mcg sublingual tablet hydroxychloroquine 200 mg tablet 200 mg PO BID Platelets 04/28/18 03/14/24 History (Plaquenil) pregabalin 150 mg capsule (Lyrica) 150 mg PO QHS Nerve pain 06/14/18 03/15/24 History ferrous sulfate 325 mg (65 mg 325 mg PO DAILY supplement 04/25/20 03/14/24 History iron) tablet (Feosol) allopurinol 100 mg tablet 100 mg PO DAILY #30 tabs 11/18/23 03/14/24 Rx ascorbic acid (vitamin C) 500 mg 1,000 mg (2 x 500 mg) PO DAILY #30 11/18/23 03/14/24 Rx tablet tabs calcium carbonate (Oyster Shell 500 mg PO BREAKFAST #30 tabs 11/18/23 03/14/24 Rx Calcium 500) pregabalin 100 mg capsule (Lyrica) 100 mg PO BID #60 caps 11/19/23 03/15/24 Rx blood sugar diagnostic (OneTouch #100 ea 12/03/23 Unknown Rx Ultra Test strips) blood-glucose sensor (Dexcom G6 #9 ea 12/03/23 Unknown Rx Sensor device) blood-glucose transmitter (Dexcom #1 ea 12/03/23 Unknown Rx G6 Transmitter device) losartan 50 mg tablet (Cozaar) 50 mg PO DAILY #90 tabs 12/03/23 03/15/24 Rx OneTouch Delica Plus Lancet 33 #100 ea 12/04/23 Unknown Rx gauge (lancets) blood sugar diagnostic (OneTouch #100 ea 12/04/23 Unknown Rx Ultra Test strips) buspirone 5 mg tablet 5 mg PO TID #90 tabs 12/11/23 03/15/24 Rx alprazolam 0.5 mg tablet (Xanax) 0.5 mg PO TID PRN PRN panic attack 12/25/23 12/07/23 History fiber 1 cap PO DAILY 12/25/23 03/14/24 History oxycodone 5 mg capsule 5 mg PO Q6H PRN PRN pain 12/25/23 12/21/23 History insulin lispro 100 unit/mL 3 unit (0.03 mL) subcut TID PRN 02/04/24 03/13/24 Rx subcutaneous pen elevated BS #15 mL anastrozole 1 mg tablet (Arimidex) 1 mg PO DAILY #90 tabs 02/24/24 03/15/24 Rx escitalopram oxalate 10 mg tablet 10 mg PO QDAY 03/03/24 03/14/24 History insulin regular hum U-500 conc 500 15 unit subcut LUNCH 03/04/24 03/14/24 History unit/mL(3 mL) subcut pen insulin regular hum U-500 conc 500 35 unit subcut DINNER 03/04/24 03/14/24 History unit/mL(3 mL) subcut pen insulin regular hum U-500 conc 500 35 unit subcut QHS 03/04/24 03/14/24 History unit/mL(3 mL) subcut pen insulin regular hum U-500 conc 500 175 unit subcut BREAKFAST Blood 03/04/24 03/15/24 History unit/mL(3 mL) subcut pen sugar levothyroxine 300 mcg tablet 300 mcg PO DAILY 03/04/24 03/15/24 History levothyroxine 300 mcg tablet 600 mcg PO GALARZA 03/04/24 03/13/24 History semaglutide 2 mg/dose (8 mg/3 mL) 1 mg subcut TH 03/04/24 02/25/24 History subcutaneous pen injector (Ozempic) Allergy/AdvReac Type Severity Reaction Status Date / Time No Known Allergies Allergy Verified 03/15/24 09:23 Family History Mother Ovarian cancer Hypertension Arthritis Uterine cancer Fibrocystic disease of breast Hypothyroid Father , Age 86-CHF Hypertension Arthritis Diverticulitis of colon Depression CAD (coronary artery disease) Sister Hypertension Depression CVA (cerebral vascular accident) Fibrocystic disease of breast Diabetes Bleeding disorder Portal hypertension Surgical History History of cardiac catheterization Hx of cystoscopy Hx of total thyroidectomy History of tonsillectomy History of carpal tunnel release History of cardiac radiofrequency ablation History of total abdominal hysterectomy and bilateral salpingo-oophorectomy History of below-knee amputation S/P cystoscopy with ureteral stent placement History of right below knee amputation History of hand surgery H/O cardiac radiofrequency ablation (02/15/13) History of right and left heart catheterization (07/03/17) H/O colonoscopy H/O abdominal hysterectomy H/O carpal tunnel repair Previous section History of tonsillectomy Hx of cholecystectomy Surgical menopause Social History Smoking Status: Never smoker second hand exposure: No alcohol intake: never substance use type: does not use caffeine: No Review of Systems (Anesthesia) ROS Narrative System reviewed and no additional complaints, except as documented.
[2024-03-15] MEDS: Lactated Ringers 1,000 ML 15 ML IV (09:46)
[2024-03-15] MEDS: Dextrose 5%-Lactated Ringers 1,000 ML 15 ML IV (11:13)
[2024-03-15 11:15] LABS: Bedside Glucose 64 mg/dL (74-106)
[2024-03-15] MEDS: Cefazolin 3 GM in 0.9% Normal Saline (100mL Bag) 100 ML IV (11:24)
[2024-03-15] MEDS: Isosulfan Blue 1% 5 ML Vial (11:43)
[2024-03-15] MEDS: 0.9% Normal Saline (Pres. free 10 ML Vial (11:43)
--- NOTE | 2024-03-15 12:15 | AXNB_PTH ---
PATIENT: KACY KEEN LOC: MS3 U#:[id number] AGE/SX: 63/F ROOM: [facility] [place] RE03/15/[address]: Dr. Steffanie Knapp MD : 1960 BED: 1 DIS: 03/16/2024 SPEC #: [id number] RECD: 03/15/24 13:08 STATUS: ELIANA [place] #: [id number] [place]: 03/15/24 12:[address]: Steffanie Knapp DEPT: SURGICAL PATHOLOGY RECD BY: Estrada Heaton ENTERED: 03/15/24 13:09 SP TYPE: AX NODE BX OTHR DR: Anabell De Leon, [facility], DIRECTOR [employer]-C Tissues: A - Axillary lymph node, NOS B - Right breast, NOS C - Right breast, NOS Procedures: Frozen Section (charge) Surgery Specimen Level IV Surgery Specimen Level V HEADER OPERATION: Right mastectomy with sentinel lymph node biopsy, blue dye and radiotracer poss PRE-OP DIAGNOSIS: Invasive ductal carcinoma of right breast in female TISSUE SUBMITTED: A- [place] lymph node right axilla. B- Right breast long stitch- lateral, short stitch-superior , C- New inferior lateral margin adjacent to tumor site- short stitch- new inferior margin, long stitch- lateral FROZEN SECTION DIAGNOSIS A. Right axilla, sentinel lymph node, biopsy: Two out of two lymph nodes, negative for metastatic carcinoma. / 03/15/2024 MICROSCOPIC DIAGNOSIS A. Right sentinel lymph node, biopsy: Two out of two lymph nodes, negative for metastatic carcinoma. See comment. B. Right breast, mastectomy: Invasive ductal carcinoma. See cancer summary in the comment section. C. New inferior lateral margin adjacent to the tumor site, excision: Negative for carcinoma. / 03/18/2024 COMMENT A. The lymph nodes are negative for metastatic carcinoma on multiple H & E levels and immunohisto-chemical stains for cytokeratins ([id number]). The lymph nodes also show reactive sinus histiocytosis. B. BREAST CANCER SUMMARY Procedure - Total mastectomy Specimen laterality - Right Invasive tumor: Tumor site - Lower central portion Tumor size - 2.2 x 1.8 x 1.5cm Histologic type - Invasive ductal carcinoma, not otherwise specified Histologic grade (Veronica grade): Glandular/tubular differentiation score - 3 Nuclear pleomorphism score - 3 Mitotic count score - 1 Overall grade - grade 2 (score of 7) Tumor focality - Single focus of invasive carcinoma Ductal carcinoma in situ - Present Negative for extensive intraductal component (EIC). Size (extent) of DCIS - comprised <1% of the total tumor involved Number of blocks with DCIS - 2 Number of blocks examined - 12 Architectural pattern - Cribriform Nuclear grade - grade 2 (intermedial) Necrosis - Not identified Lobular carcinoma in situ - Not identified Tumor extension: Skin - Free of tumor Nipple - Ductal carcinoma does not involve nipple epidermis Skeletal muscle - Not present Margins: Invasive carcinoma and ductal carcinoma in situ are 0.5cm away from the closest inferior margin in the mastectomy specimen and additional margin measures 1.5cm in thickness and negative for carcinoma Regional lymph nodes: Number of lymph nodes examined - 2 Number of sentinel lymph nodes examined - 2 Number of lymph nodes with macrometastases, micrometastases or isolated tumor cells - 0 Distal metastases- Not applicable Treatment effect - no known presurgical therapy. Lymphvascular invasion - Not identified Dermal lymphvascular invasion - Not identified Additional Pathologic Findings - - Fibrocystic changes and intraductal hyperplasia without atypia. - A small intraductal papilloma. - A small fibroadenoma (0.4cm in greatest dimension). Ancillary Studies: Previously performed on same tumor ([id number] / [id number]) ER: positive (>95%, strong intensity) KS: negative (0%) Ypz3gld: negative (1+) Ki67- positive, moderate to high, ~70% Her2 dual ml- Not appliable Microcalcifications - Not identified Clinical History - Please make reference to previous specimen [id number] right breast, core biopsy with diagnosis of invasive ductal carcinoma. PATHOLOGIC STAGE: pT2 pN0(sn) pMx The above summary is in compliance with [employer] [place] [employer] (CAP) Cancer Protocols Checklist and [place] [employer] on Cancer (AJCC), Staging Manual, 8th Ed. Case has been reviewed in consultation with Dr. Arora who concurs with the above diagnosis. IDC:AM MICROSCOPIC DESCRIPTION Slides are reviewed. GROSS DESCRIPTION A. Received fresh for frozen section diagnosis labeled with the patient's name is a specimen designated Right axilla sentinel lymph node. The specimen consists of two ovoid pieces of snowden nodules consistent with lymph nodes measuring 2.5 x 2.0 x 1.0 and 1.5 x 1.0 x 0.5cm. Smaller nodule is bisected and larger nodule is serially sectioned. The entire specimen is submitted for frozen section diagnosis and four cassettes as follows: 1- frozen section, one bisected lymph node, 2-4- frozen section, one serially sectioned lymph node. / 03/15/2024 B. Received in fixative is one container labeled with the patient's name and designated Right breast. The specimen consists of a lumpectomy specimen consistent with breast tissue and overlying skin piece measuring 25.0 x 20.0 x 6.0cm and overlying skin ellipse measuring 22.0 x 13.0cm. Nipple measures 0.5cm in greatest dimension. No skin lesion is identified. Blue dye discoloration is noted. The specimen is inked as follows: posterior - black, superior - blue, inferior - green, medial - red and lateral - orange. More dictation will follow after additional fixation. / 03/15/2024 Serial sections of the breast tissue reveal a snowden indurated mass measuring 2.2 x 1.8 x 1.5cm in lower central portion of the breast tissue. This mass is 0.5 cm away from the closest inferior margin. Section of the rest of the breast tissue reveal snowden-yellow adipose cut surfaces with snowden-white fibrous areas. Sample Weaver sections are submitted in twelve cassettes as follows: 1- nipple, entirely submitted, 2- perpendicular medial and lateral margin, 3- perpendicular superior, posterior margins and skin, 4-7- entire tumor with closest inferior margin, 8- key account representative section adjacent to the tumor, 9-12- key account representative section away from the tumor. Sections area submitted after additional fixation. .mr 03/16/2024 C. Received in fixative is one container labeled with the patient's name and designated New inferior lateral margin adjacent to tumor site. The specimen consists of a piece of fibroadipose tissue measuring 7.5 x 3.5 x 1.5cm. The specimen is inked as follows: new inferior margin- black, lateral margin- orange, medial margin- red, old margin-blue. Sections reveal yellow adipose cut surfaces without any mass lesions. Sample Weaver sections are submitted in six cassettes. Cassette number one contains the most lateral and medial margins. CELESTINO. 03/16/2024 TC:0 CPT:[id number] ADDENDUM ADDENDUM ADDENDUM ADDENDUM ADDENDUM ADDENDUM ADDENDUM ADDENDUM 04/01/2024 13:54 ADDENDUM 04/01/2024 13:54 ADDENDUM 04/01/2024 13:54 ADDENDUM 04/01/2024 13:54 ADDENDUM 04/01/2024 13:54 An order for Oncotype testing was received from Dr. Steffanie Knapp. This necessitated case review, block and slide selection by pathologist at [facility]. Breast Cancer Recurrence Score = 27 Results of the complete Oncotype testing ([employer] report) are viewable in EMR under: Reports - Pathology - Lab Pathology Report, Scanned.
[2024-03-15 13:35] LABS: Bedside Glucose 90 mg/dL (74-106)
--- NOTE | 2024-03-15 13:38 | OP.PCM_ITS ---
Report of Operation Date of Procedure: 03/15/24 Pre-Operative Diagnosis: Right breast cancer Post-Operative Diagnosis: Same Surgery/Procedure Performed:: Right mastectomy, sentinel lymph node biopsy with nuclear tracer and Lymphazurin blue dye Description of Surgical Findings:: 2 out of 2 lymph nodes negative on frozen Surgeon: Steffanie Knapp hot mix operator: Maida Haskins Type of Anesthesia: General/Supplemental Anesthesiologist: Frank Garcia Special Medications: Ancef 3 g IV x 1 Specimen's removed: Right axillary lymph node, right mastectomy, new inferior lateral margin adjacent to tumor site Drains: ELDER x 2 Estimated Blood Loss (mL): 20 CC Description of Procedure: Synoptic Portion: Element Response Options Operation performed with curative intent. Yes Tracer(s) used to identify sentinel nodes in the upfront surgery (non- neoadjuvant) setting (select all that apply). Dye; Radioactive tracer; Tracer(s) used to identify sentinel nodes in the neoadjuvant setting (select all that apply). N/A. All nodes (colored or non-colored) present at the end of a dye-filled lymphatic channel were removed. Yes; All significantly radioactive nodes were removed. Yes All palpably suspicious nodes were removed. Yes; Biopsy-proven positive nodes marked with clips prior to chemotherapy were identified and removed. N/A. In AC the breast tissue was injected with TC-9 9 sulfur colloid. >90 minutes later the patient was taken to the operating room and general anesthesia was induced. 5 cc of Lymphazurin 1% blue dye was injected in the 4 quadrants periareolar along with 10 cc of normal saline. This was massaged gently for 5 minutes. The right breast and axilla were prepped and draped in usual sterile fashion. A timeout was completed verifying correct patient, procedure, site, positioning, special equipment prior to beginning procedure. Handheld gamma probe was used to identify the location of the hottest spot in the axilla. Prior to the incision, the counts were 11. The incision was made in the hot and blue node was identified. The probe was placed in contact with the node in the 10 count was 1660. The bed of the node measured 0 counts. Additional small lymph node was palpated not blue or hot-sent to pathology. No additional blue or hot nodes were detected. Skin incision was made that encompassed the nipple areolar complex and the previous biopsy scar in past and generally oblique direction across the breast. Flaps are raised in the avascular plane between the prescription he continues tissues in the breast tissue from the clavicle superiorly, the sternum medially, the anterior rectus sheath inferiorly, and posterolateral border of the pectoralis major muscle laterally. Hemostasis was achieved in the flaps. Next, the breast tissue and underlying pectoralis fascia were excised from the pectoralis major muscle, progressing from medial to laterally. At the lateral border of the pectoralis major muscle, the breast tissue was swung laterally and the lateral pedicle identified with the breast tissue gave way to the fat of the axilla. The lateral pedicle was incised and the specimen removed and oriented for pathology. Patient's area of tumor was inferior lateral and a new additional margin was taken adjacent to the tumor site. This new margin was also oriented. The wound was irrigated and hemostasis was achieved. Closed suction drains were brought into the operating field through a separate stab incision and sutured to skin with 3-0 nylon suture. The incision was closed with interrupted 2-0 Vicryl to the simultaneously followed by a subcuticular layer of 4-0 Monocryl and Steri-Strips. The wound was dressed with ABDs/fluffs and Jozef wrap was placed. The patient tolerated procedure well and sent to postanesthesia care unit in stable condition. Complications NONE
--- NOTE | 2024-03-15 13:50 | EX.PCM.DISCH ---
Documented by User: Dr. Steffanie Knapp MD 03/15/24 13:51 Discharge Instructions Procedure Breast Surgery Diet Discharge Diet: No restrictions Activity Discharge Activity: May Not Drive (while taking narcotic pain meds.) May shower in (days): 1 Lifting Restrictions: 10 pounds for 2 weeks on the right Dressing / Incision Call your doctor if your incision/area has: Continuous Slow Oozing, Sudden Increased Bleeding, Increased Pain/ Swelling and Increased Redness Call your doctor if you observe: Fever of 101 or Higher Suture Line Care: Avoid Pulling/Pushing Remove Dressing in: 1 day (bulky dressing--change and replace ABD pads/ PETER Wrap) Additional Dressing/Incision Instructions:: Remove bulky dressing tomorrow. ok to remove PETER Wrap for redressing but replace PETER wrap after Follow Up Care Please Follow Up With: Steffanie Knapp MD When: Please call [phone] for an appointment to be seen this Thursday for ELDER removal, bring ELDER log Test Results: Test results from this visit will be discussed in further detail at your follow-up appointment, if applicable. Discharge Plan Admission Admit Date/Time: 03/15/24 15:07 Primary Reason for Your Visit: Right breast cancer Attending Provider: Steffanie Knapp Primary Care Provider: Anabell De Leon [facility] Instructions Additional Instructions / Restrictions: Breast Mastectomy Diet ? Start light with soups and soft bland foods. You may advance diet as tolerated. Activity ? You may drive in 3-5 days but not while taking narcotic pain medication. ? I encourage walking. You may go up steps, one at a time. ? Do not swim or use hot tubs until your drains have been removed, and your surgeon has evaluated your progress. Lifting ? You may lift up to 10 pounds for 2 weeks. ? Please limit over the head reaching and straining while your drains are in place. ? Once drains are removed, you may inquire about when range of motion exercises would be appropriate. Dressings/Incision ? Do not shower, or tub bathe until your surgeon has given you permission. For hygiene, sponge bathe only. ? If you have drains in place, then you may change the dressing daily and cleanse the drain sites with a Q-tip and peroxide followed by dry gauze and tape. The incision itself will normally have steri-strips or surgical glue and should not require cleansing. Medications ? Anesthesia used during surgery and pain medications may cause constipation. I recommend initiating on the day of surgery a fiber supplement like, Metamucil, Citrucel, FiberCon, Benefiber, or a generic form of these medications. 1 heaping tablespoon in water daily. You may continue to utilize any bowel regimen or oral laxatives that you routinely take. ? As long as you are not intolerant to Tylenol, acetaminophen, ibuprofen, Motrin, Advil, Aleve, or similar medications, I would recommend transitioning to these [id number] medicines as soon as possible instead of continued use of narcotic pain medication. Follow up ? You should call [facility] soon after surgery, at [phone] option 1 to make a follow up appointment for 7-10 days after your surgery?This may need to be sooner if you have a drain in place?please discuss with your physician. Exercises following breast surgery The following stretching exercises should be done two (2) to three (3) repetitions, three times daily to ensure you regain the mobility of the shoulder you had prior to surgery. Begin these stretching exercises the day after surgery. Arm Lifts This is the most important exercise for you to do. While standing (or sitting on the edge of a chair), lift both arms directly over your head. Your goal is to have your elbows ?touching? your ears. Some find it helpful to do this exercise while looking in a mirror. Arm Swings While standing, swing both arms back and forth from the shoulder (like the pendulum of a clock). Attempt to keep the elbows stiff. Increase the distance of the swing each time. Wall Climbing Stand facing a wall with feet close to the wall. Climb the fingertips of both hands up the wall then creep them down again. Attempt to go a little higher each time. If you will be having post-operative radiation therapy following your breast surgery, you will be instructed additional way to do this exercise. It is important to keep the rest of your body active. Deep breaths and coughing are necessary after surgery. You may use stairs and ride in a car. Most people may drive seven days after surgery. Shaving, etc. Be careful when shaving under the arm or putting on deodorant. It is a good idea to look in the mirror while doing either, this is to prevent irritating the incision. Blood draws, injections: It is preferred that you have blood drawn or have an injection in the operative arm. THIS IS A PRECAUTIONARY MEASURE. If it is necessary for you to have blood drawn using this arm, mention that you have had breast surgery and have had lymph nodes removed. Two weeks after surgery you will notice some changes: You may feel discomfort in the armpit and/or down the arm. This is the beginning of the inner tissue healing and at this time, discomfort is normal. Increase you exercise routine and take mild pain medication (Tylenol or acetaminophen). Warm showers may also provide discomfort. At this time, you may notice the incision feels thick and lumpy, this is normal. The scar tissue can be softened by massaging the area with a mild lotion containing vitamin e or pure lanolin. These products may be purchased over the counter at any pharmacy or grocery store. After several weeks, the scar tissue will soften. Stay aware form perfumed lotions, as the alcohol in them may irritate the skin. If you are having post-operative radiation, do not apply anything to your skin without firs consulting your radiation oncologist. Swelling If you should develop any swelling (collection of fluid) in your arm, hand, near the incision or under your arm, please contact your surgeon. Sometimes, elevating the entire arm on pillows (higher than the level of your heart) will reduce some of the swelling. Do not sleep on your surgical side. This places the area in a dependent position and increases swelling of the breast and chest wall. A small amount of swelling of the breast, chest wall and armpit is normal for the first month after surgery. Going home with a drain: Patients who have undergone breast surgery are sometimes discharged with an external drainage device. The care, emptying and recording of the drainage will be demonstrated to you during your teaching session with the nurse prior to discharge. If you develop a fever over 101 degrees F, increased drainage (more than 240 cc/8 oz) over a 24 hours period or increased pain not controlled by pain medication, please call your doctors office. The amount of fluid that is drained over a 24-hour period will gradually decrease. The color may change from tay re, to red orange, to straw color. When you return for your post-operative visit four to seven days after surgery it is usually time to remove the drain. Discharge Orders/Prescriptions Prescriptions: New acetaminophen 325 mg Tablet 650 mg PO Q6H PRN PRN (Reason: Pain Score 1-10) Qty: 0 0RF Continued hydroxychloroquine [Plaquenil] 200 mg tablet 200 mg PO BID pregabalin [Lyrica] 150 mg capsule 150 mg PO QHS Patient Comments: PT IS ON BOTH A 100MG CAPSULE AND A 150MG CAPSULE OF LYRICA. Rx Instructions: TAKE ONE CAPSULE (150 MG) BY MOUTH ONCE DAILY AT BEDTIME. ferrous sulfate [Feosol] 325 mg (65 mg iron) tablet 325 mg PO DAILY losartan [Cozaar] 50 mg tablet 50 mg PO DAILY Qty: 90 1RF (DME) OneTouch Ultra Test Strip See Rx Instructions .Route Qty: 100 5RF Rx Instructions: TID (DME) Dexcom G6 Sensor Device See Rx Instructions .Route Qty: 9 1RF Rx Instructions: 1 sensor q 10 days (DME) Dexcom G6 Transmitter Device See Rx Instructions .Route Qty: 1 1RF Rx Instructions: 1 transmitter q 90 days escitalopram oxalate 10 mg tablet 10 mg PO DAILY multivitamin 1 EACH tablet 1 ea PO DAILY Patient Comments: SUPPLEMENT metoprolol succinate 100 MG tablet 100 mg PO DAILY Patient Comments: HEART omeprazole 40 MG capsule 40 mg PO DAILY Patient Comments: HEARTBURN, GERD simvastatin 20 MG tablet 20 mg PO QHS Patient Comments: CHOLESTEROL cetirizine 10 MG capsule 10 mg PO DAILY Patient Comments: ALLERGIES cyanocobalamin (vitamin B-12) 1,000 MCG tablet, sublingual 1,000 mcg PO DAILY buspirone 5 mg tablet 5 mg PO TID Qty: 90 0RF Ozempic 2 mg/dose (8 mg/3 mL) pen injector 1 mg subcut TH insulin regular hum U-500 conc 500 unit/mL (3 mL) insulin pen 15 unit subcut LUNCH insulin regular hum U-500 conc 500 unit/mL (3 mL) insulin pen 35 unit subcut DINNER insulin regular hum U-500 conc 500 unit/mL (3 mL) insulin pen 35 unit subcut QHS levothyroxine 300 mcg tablet 600 mcg PO GALARZA levothyroxine 300 mcg tablet 300 mcg PO DAILY insulin regular hum U-500 conc 500 unit/mL (3 mL) insulin pen 175 unit subcut BREAKFAST Rx Instructions: 145 units with breakfast 10 units with lunch 40 units at HS ascorbic acid (vitamin C) 500 mg Tablet 1,000 mg PO DAILY Qty: 30 0RF Rx Instructions: Take this with the iron with food. calcium carbonate [Oyster Shell Calcium 500] 500 mg calcium (1,250 mg) Tablet 500 mg PO BREAKFAST Qty: 30 0RF allopurinol 100 mg tablet 100 mg PO DAILY Qty: 30 0RF fiber Capsule 1 cap PO DAILY alprazolam [Xanax] 0.5 mg tablet 0.5 mg PO TID PRN PRN (Reason: panic attack) oxycodone 5 mg capsule 5 mg PO Q6H PRN PRN (Reason: pain) (DME) lancets [OneTouch Delica Plus Lancet] 33 gauge misc See Rx Instructions .Route Qty: 100 3RF Rx Instructions: As directed (DME) OneTouch Ultra Test Strip See Rx Instructions .Route Qty: 100 3RF Rx Instructions: As directed anastrozole [Arimidex] 1 mg tablet 1 mg PO DAILY Qty: 90 4RF Held aspirin 81 MG tablet,delayed release (DR/EC) 81 mg PO DAILY Hold Instructions: Until ELDER removed Patient Comments: HEART HEALTH, STROKE PREVENTION No Action insulin lispro 100 unit/mL insulin pen 3 unit subcut TID PRN (Reason: BLOOD SUGARS) Rx Instructions: INJECT 3 UNITS SUBCUTANEOUSLY THREE TIMES A DAY NEEDED. MAX DAILY DOSE OF 60 UNITS. insulin lispro 100 unit/mL insulin pen See Protocol subcut DAILY MDD 60 PRN (Reason: elevated BS) Protocol: 6. Sliding Scale Insulin Custom Condition: mg/dl range Dose/Route: Number of Units Condition: 180-210 Dose/Route: 20 Condition: 211-240 Dose/Route: 25 Condition: 241-280 Dose/Route: 30 Condition: 281 > Dose/Route: 40 Protocol Text: Custom Sliding Scale pregabalin [Lyrica] 100 mg capsule 100 mg PO BID Patient Comments: PT IS ON BOTH A 100MG CAPSULE AND 150 MG CAPSULE OF LYRICA. Rx Instructions: TAKE ONE CAPSULE (100MG) BY MOUTH ONCE EVERY MORNING AND ONE CAPSULE (100MG) ONCE EVERY AFTERNOON. Referrals / Follow Up: Steffanie Knapp MD [Med Staff - Active Staff] - 03/18/24 10:30 am Anabell De Leon, [employer] [Primary Care Provider] - Disposition Disposition (needs filled in before D/C Order can be placed): Home, Self Care Documented by User: Vlima NAILS PA-C 03/16/24 07:51 Discharge Instructions Follow Up Care When: Please call [phone] if any questions or concerns. Appointment scheduled for 03/18 at 10:30A, bring ELDER log Discharge Plan Admission Admit Date/Time: 03/15/24 15:07 Primary Reason for Your Visit: Right breast cancer Attending Provider: Steffanie Knapp Primary Care Provider: Anabell De Leon [facility] Instructions Additional Instructions / Restrictions: Breast Mastectomy Diet ? Start light with soups and soft bland foods. You may advance diet as tolerated. Activity ? You may drive in 3-5 days but not while taking narcotic pain medication. ? I encourage walking. You may go up steps, one at a time. ? Do not swim or use hot tubs until your drains have been removed, and your surgeon has evaluated your progress. Lifting ? You may lift up to 10 pounds for 2 weeks. ? Please limit over the head reaching and straining while your drains are in place. ? Once drains are removed, you may inquire about when range of motion exercises would be appropriate. Dressings/Incision ? Do not shower, or tub bathe until your surgeon has given you permission. For hygiene, sponge bathe only. ? If you have drains in place, then you may change the dressing daily and cleanse the drain sites with a Q-tip and peroxide followed by dry gauze and tape. The incision itself will normally have steri-strips or surgical glue and should not require cleansing. Medications ? Anesthesia used during surgery and pain medications may cause constipation. I recommend initiating on the day of surgery a fiber supplement like, Metamucil, Citrucel, FiberCon, Benefiber, or a generic form of these medications. 1 heaping tablespoon in water daily. You may continue to utilize any bowel regimen or oral laxatives that you routinely take. ? As long as you are not intolerant to Tylenol, acetaminophen, ibuprofen, Motrin, Advil, Aleve, or similar medications, I would recommend transitioning to these [id number] medicines as soon as possible instead of continued use of narcotic pain medication. Follow up ? You should call [facility] soon after surgery, at [phone] option 1 to make a follow up appointment for 7-10 days after your surgery?This may need to be sooner if you have a drain in place?please discuss with your physician. Exercises following breast surgery The following stretching exercises should be done two (2) to three (3) repetitions, three times daily to ensure you regain the mobility of the shoulder you had prior to surgery. Begin these stretching exercises the day after surgery. Arm Lifts This is the most important exercise for you to do. While standing (or sitting on the edge of a chair), lift both arms directly over your head. Your goal is to have your elbows ?touching? your ears. Some find it helpful to do this exercise while looking in a mirror. Arm Swings While standing, swing both arms back and forth from the shoulder (like the pendulum of a clock). Attempt to keep the elbows stiff. Increase the distance of the swing each time. Wall Climbing Stand facing a wall with feet close to the wall. Climb the fingertips of both hands up the wall then creep them down again. Attempt to go a little higher each time. If you will be having post-operative radiation therapy following your breast surgery, you will be instructed additional way to do this exercise. It is important to keep the rest of your body active. Deep breaths and coughing are necessary after surgery. You may use stairs and ride in a car. Most people may drive seven days after surgery. Shaving, etc. Be careful when shaving under the arm or putting on deodorant. It is a good idea to look in the mirror while doing either, this is to prevent irritating the incision. Blood draws, injections: It is preferred that you have blood drawn or have an injection in the operative arm. THIS IS A PRECAUTIONARY MEASURE. If it is necessary for you to have blood drawn using this arm, mention that you have had breast surgery and have had lymph nodes removed. Two weeks after surgery you will notice some changes: You may feel discomfort in the armpit and/or down the arm. This is the beginning of the inner tissue healing and at this time, discomfort is normal. Increase you exercise routine and take mild pain medication (Tylenol or acetaminophen). Warm showers may also provide discomfort. At this time, you may notice the incision feels thick and lumpy, this is normal. The scar tissue can be softened by massaging the area with a mild lotion containing vitamin e or pure lanolin. These products may be purchased over the counter at any pharmacy or grocery store. After several weeks, the scar tissue will soften. Stay aware form perfumed lotions, as the alcohol in them may irritate the skin. If you are having post-operative radiation, do not apply anything to your skin without firs consulting your radiation oncologist. Swelling If you should develop any swelling (collection of fluid) in your arm, hand, near the incision or under your arm, please contact your surgeon. Sometimes, elevating the entire arm on pillows (higher than the level of your heart) will reduce some of the swelling. Do not sleep on your surgical side. This places the area in a dependent position and increases swelling of the breast and chest wall. A small amount of swelling of the breast, chest wall and armpit is normal for the first month after surgery. Going home with a drain: Patients who have undergone breast surgery are sometimes discharged with an external drainage device. The care, emptying and recording of the drainage will be demonstrated to you during your teaching session with the nurse prior to discharge. If you develop a fever over 101 degrees F, increased drainage (more than 240 cc/8 oz) over a 24 hours period or increased pain not controlled by pain medication, please call your doctors office. The amount of fluid that is drained over a 24-hour period will gradually decrease. The color may change from tay re, to red orange, to straw color. When you return for your post-operative visit four to seven days after surgery it is usually time to remove the drain. Discharge Orders/Prescriptions Prescriptions: New acetaminophen 325 mg Tablet 650 mg PO Q6H PRN PRN (Reason: Pain Score 1-10) Qty: 0 0RF Continued hydroxychloroquine [Plaquenil] 200 mg tablet 200 mg PO BID pregabalin [Lyrica] 150 mg capsule 150 mg PO QHS Patient Comments: PT IS ON BOTH A 100MG CAPSULE AND A 150MG CAPSULE OF LYRICA. Rx Instructions: TAKE ONE CAPSULE (150 MG) BY MOUTH ONCE DAILY AT BEDTIME. ferrous sulfate [Feosol] 325 mg (65 mg iron) tablet 325 mg PO DAILY losartan [Cozaar] 50 mg tablet 50 mg PO DAILY Qty: 90 1RF (DME) OneTouch Ultra Test Strip See Rx Instructions .Route Qty: 100 5RF Rx Instructions: TID (DME) Dexcom G6 Sensor Device See Rx Instructions .Route Qty: 9 1RF Rx Instructions: 1 sensor q 10 days (DME) Dexcom G6 Transmitter Device See Rx Instructions .Route Qty: 1 1RF Rx Instructions: 1 transmitter q 90 days escitalopram oxalate 10 mg tablet 10 mg PO DAILY multivitamin 1 EACH tablet 1 ea PO DAILY Patient Comments: SUPPLEMENT metoprolol succinate 100 MG tablet 100 mg PO DAILY Patient Comments: HEART omeprazole 40 MG capsule 40 mg PO DAILY Patient Comments: HEARTBURN, GERD simvastatin 20 MG tablet 20 mg PO QHS Patient Comments: CHOLESTEROL cetirizine 10 MG capsule 10 mg PO DAILY Patient Comments: ALLERGIES cyanocobalamin (vitamin B-12) 1,000 MCG tablet, sublingual 1,000 mcg PO DAILY buspirone 5 mg tablet 5 mg PO TID Qty: 90 0RF Ozempic 2 mg/dose (8 mg/3 mL) pen injector 1 mg subcut TH insulin regular hum U-500 conc 500 unit/mL (3 mL) insulin pen 15 unit subcut LUNCH insulin regular hum U-500 conc 500 unit/mL (3 mL) insulin pen 35 unit subcut DINNER insulin regular hum U-500 conc 500 unit/mL (3 mL) insulin pen 35 unit subcut QHS levothyroxine 300 mcg tablet 600 mcg PO GALARZA levothyroxine 300 mcg tablet 300 mcg PO DAILY insulin regular hum U-500 conc 500 unit/mL (3 mL) insulin pen 175 unit subcut BREAKFAST Rx Instructions: 145 units with breakfast 10 units with lunch 40 units at HS ascorbic acid (vitamin C) 500 mg Tablet 1,000 mg PO DAILY Qty: 30 0RF Rx Instructions: Take this with the iron with food. calcium carbonate [Oyster Shell Calcium 500] 500 mg calcium (1,250 mg) Tablet 500 mg PO BREAKFAST Qty: 30 0RF allopurinol 100 mg tablet 100 mg PO DAILY Qty: 30 0RF fiber Capsule 1 cap PO DAILY alprazolam [Xanax] 0.5 mg tablet 0.5 mg PO TID PRN PRN (Reason: panic attack) oxycodone 5 mg capsule 5 mg PO Q6H PRN PRN (Reason: pain) (DME) lancets [OneTouch Delica Plus Lancet] 33 gauge misc See Rx Instructions .Route Qty: 100 3RF Rx Instructions: As directed (DME) OneTouch Ultra Test Strip See Rx Instructions .Route Qty: 100 3RF Rx Instructions: As directed anastrozole [Arimidex] 1 mg tablet 1 mg PO DAILY Qty: 90 4RF Held aspirin 81 MG tablet,delayed release (DR/EC) 81 mg PO DAILY Hold Instructions: Until ELDER removed Patient Comments: HEART HEALTH, STROKE PREVENTION No Action insulin lispro 100 unit/mL insulin pen 3 unit subcut TID PRN (Reason: BLOOD SUGARS) Rx Instructions: INJECT 3 UNITS SUBCUTANEOUSLY THREE TIMES A DAY NEEDED. MAX DAILY DOSE OF 60 UNITS. insulin lispro 100 unit/mL insulin pen See Protocol subcut DAILY MDD 60 PRN (Reason: elevated BS) Protocol: 6. Sliding Scale Insulin Custom Condition: mg/dl range Dose/Route: Number of Units Condition: 180-210 Dose/Route: 20 Condition: 211-240 Dose/Route: 25 Condition: 241-280 Dose/Route: 30 Condition: 281 > Dose/Route: 40 Protocol Text: Custom Sliding Scale pregabalin [Lyrica] 100 mg capsule 100 mg PO BID Patient Comments: PT IS ON BOTH A 100MG CAPSULE AND 150 MG CAPSULE OF LYRICA. Rx Instructions: TAKE ONE CAPSULE (100MG) BY MOUTH ONCE EVERY MORNING AND ONE CAPSULE (100MG) ONCE EVERY AFTERNOON. Referrals / Follow Up: Steffanie Knapp MD [Med Staff - Active Staff] - 03/18/24 10:30 am Anabell De Leon, [employer] [Primary Care Provider] - Disposition Disposition (needs filled in before D/C Order can be placed): Home, Self Care
--- NOTE | 2024-03-15 14:30 | PCM.POST.ANE ---
Anesthesia: Postop Eval I Current Vital Signs Temperature: 97.3 F Pulse Rate: 78 Blood Pressure: 121/57 Respiratory Rate: 16 Pulse Ox: 96 Oxygen Delivery Method: Room Air Assessment Airway patent: Yes Spontaneous unlabored respirations: Yes Mental status: Awake and Calm nausea: No Vomiting: No Anesthesia Complication: No Fluid Hydration Crystalloid volume administer (ml): 800 Total IV fluid infused: 800 Progress Note Anesthesia document: Postop Eval 1 completed: Yes
[2024-03-15 15:04] LABS: Bedside Glucose 110 mg/dL (74-106)
[2024-03-15] MEDS: Dextrose 5%-Lactated Ringers 1,000 ML 100 ML IV (16:37)
[2024-03-15 17:03] LABS: Bedside Glucose 140 mg/dL (74-106)
--- NOTE | 2024-03-15 18:09 | POSTOPAN2_ITS ---
Anesthesia Postop Eval I Sum Postop Eval Completion status Anesthesia document: Postop Eval 1 completed: Yes Anesthesia Postop Eval I Summary Anesthesia Postop Eval I Summary: Anesthesia Postop Eval I: Assessment Summary Airway patent Yes 03/15/24 14:31 [email or web address] Spontaneous unlabored Yes 03/15/24 14:31 [email or web address] respirations Mental status Awake,Calm 03/15/24 14:31 [email or web address] nausea No 03/15/24 14:31 [email or web address] Vomiting No 03/15/24 14:31 [email or web address] Anesthesia Postop Eval I: Fluid Summary Crystalloid volume administer 800 03/15/24 14:31 [email or web address] (ml) Colloids volume administered ( ml) Blood Product volume administered (ml) Total IV fluid infused 800 03/15/24 14:31 [email or web address] Anesthesia Postop Eval I: Summary Notes Anesthesia Complication No 03/15/24 14:31 [email or web address] Anesthesia Complication Comment: Post-operative progress note Anesthesia: Postop Eval II Evaluation Mental status: Awake Pain Level: 0 nausea: No Vomiting: No
--- NOTE | 2024-03-15 18:09 | PCM.POSTANE2 ---
Anesthesia Postop Eval I Sum Postop Eval Completion status Anesthesia document: Postop Eval 1 completed: Yes Anesthesia Postop Eval I Summary Anesthesia Postop Eval I Summary: Anesthesia Postop Eval I: Assessment Summary Airway patent Yes 03/15/24 14:31 [email or web address] [email or web address] Spontaneous unlabored Yes 03/15/24 14:31 [employer]STATE BROKER [email or web address] respirations Mental status Awake,Calm 03/15/24 14:31 [employer]STATE BR[employer]ER [email or web address] nausea No 03/15/24 14:31 REAL ESTATE BROKER [email or web address].[email or web address] Vomiting No 03/15/24 14:31 REAL ESTATE [email or web address] [email or web address] Anesthesia Postop Eval I: Fluid Summary Crystalloid volume administer 800 03/15/24 14:31 REAL ESTATE BROKER [email or web address] (ml) Colloids volume administered ( ml) Blood Product volume administered (ml) Total IV fluid infused 800 03/15/24 14:31 [employer] ESTATE BROKER [email or web address] Anesthesia Postop Eval I: Summary Notes Anesthesia Complication No 03/15/24 14:31 [employer] ESTATE [email or web address] [email or web address] Anesthesia Complication Comment: Post-operative progress note Anesthesia: Postop Eval II Evaluation Mental status: Awake Pain Level: 0 nausea: No Vomiting: No
[2024-03-15] MEDS: Insulin U-500 UNITS/ML PEN 35 UNITS SC ×2 (18:44→21:12)
[2024-03-15] MEDS: busPIRone 5 MG Tablet PO (21:12)
[2024-03-15] MEDS: Escitalopram Oxalate 10 MG Tablet PO (21:12)
[2024-03-15] MEDS: Acetaminophen 325 MG Tablet 650 MG PO (21:12)
[2024-03-15] MEDS: Atorvastatin Calcium 10 MG Tablet PO (21:12)
[2024-03-15] MEDS: oxyCODONE 5 MG Tablet PO (21:13)
[2024-03-15] MEDS: Pregabalin 75 MG Capsule 150 MG PO (21:23)
[2024-03-15 23:32] LABS: Bedside Glucose 316 mg/dL (74-106)
[2024-03-16 01:14] VITALS: BP 132/59; PULSE 100; RESP 18; TEMP 36.8; O2SAT 95
[2024-03-16 05:00] VITALS: BP 145/69; PULSE 76; RESP 18; TEMP 36.4; O2SAT 96
[2024-03-16] MEDS: busPIRone 5 MG Tablet PO (05:08)
[2024-03-16] MEDS: Levothyroxine 150 MCG Tablet 300 MCG PO (05:08)
[2024-03-16 07:25] LABS: Absolute Lymphocyte Count 0.95 X10^3/uL (0.83-4.51); Basophil# 0.02 X10^3/uL; Basophil% 0.3 % (0-1); Eosinophil# 0.01 X10^3/uL; Eosinophils% 0.1 % (0-5); Hematocrit 34.5 % (37-47); Lymphocyte # 0.95 X10^3/ul (0.83-4.51); Lymphocyte % 12.7 % (19-41); Mean Corp Hgb Conc 31.9 g/dL (32-36); Mean Corpuscular Hgb 29.2 pg (27.0-32.0); Mean Corpuscular Volume 91.5 fL (81-99); Mean Platelet Vol. 10.4 fl (6.2-12.0); Monocyte# 0.49 X10^3/uL; Monocyte% 6.5 % (0-10); NRBC Flagged by Analyzer 0.3 % (0-5); Neutrophil # 5.97 X10^3/uL (2.7-7.7); Neutrophil % 79.7 % (47-70); Platelet Count 159 K/mm3 (150-450); RBC Distribution Width SD 46.8 fl (35.1-43.9); Red Blood Count 3.77 M/mm3 (4.2-5.4); White Blood Count 7.5 K/mm3 (4.4-11.0)
--- NOTE | 2024-03-16 07:37 | PCM.PN.SRG ---
Subjective Subjective Patient is a 63 y/o I am following s/p right mastectomy with sentinel lymph node biopsy by Dr. Knapp on 03/15/24. Patient tolerated the procedure well. She notes very minimal amount of pain. She denies any nausea, vomiting. She notes appetite is good. Objective Data Objective Data Vital Signs: Vital Signs Temp Pulse Resp BP Pulse Ox O2 Del Method O2 Flow Rate 97.6 F L 76 18 145/69 H 96 Room Air 2 03/16/24 05:00 03/16/24 05:00 03/16/24 05:00 03/16/24 05:00 03/16/24 05:00 03/16/24 05:00 03/15/24 20:45 Oxygen Flow Rate (L/min) 2 Oxygen Delivery Method Room Air Weight: 339 lb 15.245 oz Body Mass Index (BMI) 54.8 Intake & Output: Intake and Output for Last 24 Hours 03/14/24 03/15/24 03/16/24 23:59 23:59 23:59 Intake Total 2043.33 / 2043.33 Output Total 715 / 715 Balance 1328.33 / 1328.33 Lab / Micro Data 03/16/24 06:07 Labs: Laboratory Results - last 24 hr 03/15/24 10:57: POC Glucose 64 L 03/15/24 12:54: POC Glucose 90 03/15/24 14:39: POC Glucose 110 H 03/15/24 16:37: POC Glucose 140 H 03/15/24 21:09: POC Glucose 316 H Physical Exam Chest Chest Narrative: Right chest- incision c/d/i. No erythema or infection noted. ELDER drains x 2 c/d/i. Serosanguineous drainage noted with the bulbs. PETER wrap intact. No ecchymosis noted. Assessment & Plan Assessment/Plan (1) Invasive ductal carcinoma of right breast in female: PLAN: I am following this patient in conjunction with Dr. Chauhan in Dr. Knapp's absence. Reviewed discharge instructions Drain teaching prior to discharge Patient ready for discharge today Charges/Coding Visit Charges Inpatient E&M: 69855 Subs Hosp L1 (post-op)
[2024-03-16] MEDS: Insulin Lispro 100 UNIT/ML INSULN.PEN SC ×2 (08:10→11:58)
[2024-03-16 08:12] VITALS: PULSE 71
[2024-03-16] MEDS: Metoprolol(XL)Succ 100 MG Tablet PO (08:12)
[2024-03-16] MEDS: Insulin U-500 UNITS/ML PEN 170 UNITS SC (08:12)
[2024-03-16] MEDS: Loratadine 10 MG Tablet PO (08:13)
[2024-03-16] MEDS: Losartan Potassium 50 MG Tablet PO (08:13)
[2024-03-16] MEDS: Pantoprazole Sodium 40 MG Tablet PO (08:13)
[2024-03-16] MEDS: Pregabalin 50 MG Capsule 100 MG PO ×2 (08:14→12:00)
[2024-03-16 08:40] LABS: Bedside Glucose 245 mg/dL (74-106)
[2024-03-16 09:00] VITALS: BP 134/66; PULSE 70; RESP 16; TEMP 36.6; O2SAT 98
--- NOTE | 2024-03-16 10:40 | CASEMGMT ---
RN AUDREY NOTE: Discharge order is in. RN CM to room. Introduced self and role. Pt states nursing has already educated her and her on ELDER drain care. She is aware education to be provided on wound care/dsg change. She would like her present for this as well. RN, Natalie, and wound nurse, Priyanka, both made aware. Pt states she feels comfortable w/her and her changing the dressing/doing the wound care. She currently goes to the wound center as well for a wound that has not healed up yet and her has been doing dsg changes/wound care to that area. She states she has a lot of DME, including W/C, walker, and shower chair and denies need for other DME at this time. She denies need for therapy to work w/her, denies need for any OP therapy or HHC. She feels safe to discharge home and denies having other needs/concerns. Aware to ask for CM if anything further arises. Diego BATEMANN YUDELKA VENTURA
--- NOTE | 2024-03-16 11:45 | PHA.DC.MR.R ---
Pharmacy [facility] Med Reconciliation Pharmacy Service has performed discharge medication reconciliation for this patient. The patient's discharge medication list was reviewed for discrepancies and discrepancies were resolved. Medications at Discharge Home Medications aspirin 81 mg tablet,delayed release 81 mg PO DAILY Heart health 01/11/16 cetirizine 10 mg capsule 10 mg PO DAILY Allergies 01/11/16 metoprolol succinate 100 mg tablet,extended release 24 hr 100 mg PO DAILY BP 01/11/16 multivitamin 1 ea PO DAILY Supplement 01/11/16 omeprazole 40 mg capsule,delayed release 40 mg PO DAILY GERD 01/11/16 simvastatin 20 mg tablet 20 mg PO QHS Cholestrol 01/11/16 cyanocobalamin (vitamin B-12) 1,000 mcg sublingual tablet 1,000 mcg PO DAILY Supplement 07/02/17 hydroxychloroquine 200 mg tablet (Plaquenil) 200 mg PO BID Platelets 04/28/18 pregabalin 150 mg capsule (Lyrica) 150 mg PO QHS NERVE PAIN 06/14/18 ferrous sulfate 325 mg (65 mg iron) tablet (Feosol) 325 mg PO DAILY supplement 04/25/20 allopurinol 100 mg tablet 100 mg PO DAILY #30 tabs 11/18/23 ascorbic acid (vitamin C) 500 mg tablet 1,000 mg (2 x 500 mg) PO DAILY #30 tabs 11/18/23 calcium carbonate (Oyster Shell Calcium 500) 500 mg PO BREAKFAST #30 tabs 11/18/23 blood sugar diagnostic (OneTouch Ultra Test strips) #100 ea 12/03/23 blood-glucose sensor (Dexcom G6 Sensor device) #9 ea 12/03/23 blood-glucose transmitter (Dexcom G6 Transmitter device) #1 ea 12/03/23 losartan 50 mg tablet (Cozaar) 50 mg PO DAILY #90 tabs 12/03/23 OneTouch Delica Plus Lancet 33 gauge (lancets) #100 ea 12/04/23 blood sugar diagnostic (OneTouch Ultra Test strips) #100 ea 12/04/23 buspirone 5 mg tablet 5 mg PO TID #90 tabs 12/11/23 alprazolam 0.5 mg tablet (Xanax) 0.5 mg PO TID PRN PRN panic attack 12/25/23 fiber 1 cap PO DAILY 12/25/23 oxycodone 5 mg capsule 5 mg PO Q6H PRN PRN pain 12/25/23 anastrozole 1 mg tablet (Arimidex) 1 mg PO DAILY #90 tabs 02/24/24 escitalopram oxalate 10 mg tablet 10 mg PO DAILY 03/03/24 insulin regular hum U-500 conc 500 unit/mL(3 mL) subcut pen 15 unit subcut LUNCH 03/04/24 insulin regular hum U-500 conc 500 unit/mL(3 mL) subcut pen 35 unit subcut DINNER 03/04/24 insulin regular hum U-500 conc 500 unit/mL(3 mL) subcut pen 35 unit subcut QHS 03/04/24 insulin regular hum U-500 conc 500 unit/mL(3 mL) subcut pen 175 unit subcut BREAKFAST Blood sugar 03/04/24 levothyroxine 300 mcg tablet 300 mcg PO DAILY 03/04/24 levothyroxine 300 mcg tablet 600 mcg PO GALARZA 03/04/24 semaglutide 2 mg/dose (8 mg/3 mL) subcutaneous pen injector (Ozempic) 1 mg subcut TH 03/04/24 insulin lispro 100 unit/mL subcutaneous pen 3 unit subcut TID PRN BLOOD SUGARS 03/15/24 insulin lispro 100 unit/mL subcutaneous pen See Protocol subcut DAILY PRN elevated BS 03/15/24 pregabalin 100 mg capsule (Lyrica) 100 mg PO BID NERVE PAIN 03/15/24 acetaminophen 325 mg tablet 650 mg (2 x 325 mg) PO Q6H PRN PRN Pain Score 1-10 #0 tabs 03/16/24
[2024-03-16] MEDS: Insulin U-500 UNITS/ML PEN 15 UNITS SC (11:58)
[2024-03-16] MEDS: Anastrozole 1 MG TABLET PO (11:58)
[2024-03-16] MEDS: Psyllium 1 PACKET PO (11:58)
[2024-03-16] MEDS: Ferrous Sulfate 325 MG Tablet PO (11:59)
[2024-03-16] MEDS: Multivitamins,Therapeutic Tablet 1 TABLET PO (11:59)
[2024-03-16 12:31] LABS: Bedside Glucose 245 mg/dL (74-106)
--- NOTE | 2024-03-16 14:29 | WOUNDNOTE ---
Dressing removed from chest. patient is POD#1 right mastectomy. there was a small amount of old dry drainage noted on the old dressing. incision is well approximated with dermabond and steri strips. small amount of ecchymosis noted. [address] ELDER sites cleanse with peroxide and splint gauze was placed. covered with gauze and secured with tape. placed ABD pads over the incision and reapplied the PETER wrap. pt's was present as he will be assisting with drain care. pt tolerated well. demonstrated emptying the ELDER drains and stripping the tubing. pt and aware to record drainage and take forms to follow up appt. both state understanding and deny questions.
== END 2024-03-16 12:58 | disposition home or self-care (01) ==
LOC: SDC 16:44 → MS3 16:44
PROVIDERS: Admitting Provider Surgery; PCP Nurse Practitioner Family; Referring Provider Surgery; Visit Provider Surgery
PROC: (CPT 19307; principal; 2024-03-15 11:15)
DX: C50.911 Malignant neoplasm of unspecified site of right female breast (principal); Z89.511 Acquired absence of right leg below knee; E66.01 Morbid (severe) obesity due to excess calories; Z68.43 Body mass index [BMI] 50.0-59.9, adult; Z79.4 Long term (current) use of insulin; E11.22 Type 2 diabetes mellitus with diabetic chronic kidney disease; E11.40 Type 2 diabetes mellitus with diabetic neuropathy, unspecified; N18.30 Chronic kidney disease, stage 3 unspecified; E78.00 Pure hypercholesterolemia, unspecified; I12.9 Hypertensive chronic kidney disease with stage 1 through stage 4 chronic kidney disease, or unspecified chronic kidney disease; Z79.811 Long term (current) use of aromatase inhibitors
CPT/HCPCS: 19303; 38525; 00400; 36415; 38792; 82962; 85025; 88305; 88307; 88331; 88341; 88342; 94668; 94762; 96360; 96361; 99221; A4648; A9541; J7120; G0378; J2405; J3490; Q9968

== ENCOUNTER 2024-03-22 15:30 | Outpatient (RCR) | payer OTHER, SELFPAY ==
[2024-02-25 00:48] VITALS: BP 106/40; PULSE 74; RESP 18; TEMP 35.9; BMI 54.1
[2024-02-26 12:00] VITALS: BP 146/71; PULSE 97; RESP 18; TEMP 36.3; BMI 54.1
[2024-03-01 15:53] VITALS: BP 136/37; PULSE 73; RESP 18; TEMP 37; BMI 54.1
--- NOTE | 2024-03-02 08:38 | WC ---
PHOTO RIGHT STUMP ULCER 03/01/24
--- NOTE | 2024-03-02 13:45 | HP.PCM_ITS ---
History of Present Illness Date of Service: 03/01/24 Chief Complaint: Surgical wound dehiscence of the right below-knee amputation stump incision History of Wound: This is a 63-year-old morbidly obese female with multiple pre- existing medical conditions. She is a longstanding diabetic and has been poorly controlled. She suffers from diabetic peripheral neuropathy. She developed a right Charcot foot deformity, with collapse of her right arch. Her condition resulted in a right below-knee amputation which was performed at [facility] by Dr. Narayan on October 19, 2023. The patient had a relatively uncomplicated postoperative course. She was transferred to the [facility] rehabilitation unit, where she continued to convalesce for several weeks. Several weeks postoperatively, Dr. Damon's staff removed the patient's surgical luisana, and the patient subsequently developed a dehiscence. She was referred to the [facility] for management of her right below-knee amputation stump incisional dehiscence. The patient had been using Neosporin and gauze topically. She had also been using a Coban wrap and had been fitted with a stump bilingual account manager by [employer]. The patient's multiple pre-existing medical conditions are listed elsewhere. Of note, she underwent right breast needle biopsy on November 26, 2023, which was indicative of invasive ductal carcinoma. She is under the care of other providers for management of this recent diagnosis, including her surgeon, Dr. Knapp. Laboratory results obtained on December 03, 2023, were as follows: Sodium 139, potassium 4.0, chloride 106, BUN 21, creatinine 1.21, glucose 120, calcium 9.1, total bilirubin 0.60, AST 23, ALT 29, alkaline phosphatase 103, total protein 7.1, albumin 3.7. FOR[facility]LY [facility] Medical History Tinea cruris Non-pressure chronic ulcer of right calf with fat layer exposed Wears glasses Post-menopausal Cancer Anxiety Open wound Thyroid disease Insulin dependent diabetes mellitus Uses wheelchair Fatty liver High cholesterol Dietary restriction Non-smoker History of edema History of echocardiogram History of stress test Cardiology follow-up encounter Surgical wound dehiscence Right leg swelling History of endometrial cancer Rheumatoid arthritis Diverticulosis Chronic renal failure, stage 3 (moderate) Pulmonary hypertension GERD (gastroesophageal reflux disease) Hyperlipidemia History of kidney stones Breast cancer in female Morbid obesity with BMI of 50.0-59.9, adult Hydronephrosis Ureteral calculus Charcot ankle Diabetic neuropathy Morbid obesity with BMI of 50.0-59.9, adult Diverticulosis Diabetes mellitus, type 2 Chronic renal failure (CRF), stage 3a Anemia Rheumatoid arthritis Chronic pain CPAP (continuous positive airway pressure) dependence Pulmonary hypertension BRITT (obstructive sleep apnea) Thyromegaly Hx of supraventricular tachycardia Nephrolithiasis Rosacea Fatty liver External hemorrhoid GERD without esophagitis Benign essential HTN Bilateral carpal tunnel syndrome Hyperlipidemia Low vitamin B12 level Multinodular goiter Tubular adenoma Adenocarcinoma of endometrium Home Medications ?Medication ?Instructions ?Recorded ?Last Taken ?Type aspirin 81 mg tablet,delayed 81 mg PO DAILY Heart health 01/11/16 12/22/23 History release cetirizine 10 mg capsule 10 mg PO DAILY Allergies 01/11/16 Unknown History metoprolol succinate 100 mg 100 mg PO DAILY BP 01/11/16 07/03/17 History tablet,extended release 24 hr multivitamin 1 ea PO DAILY Supplement 01/11/16 Unknown History omeprazole 40 mg capsule,delayed 40 mg PO DAILY GERD 01/11/16 07/03/17 History release simvastatin 20 mg tablet 20 mg PO QHS Cholestrol 01/11/16 Unknown History cyanocobalamin (vitamin B-12) 1,000 mcg PO DAILY Supplement 07/02/17 Unknown History 1,000 mcg sublingual tablet hydroxychloroquine 200 mg tablet 200 mg PO BID Platelets 04/28/18 Unknown History (Plaquenil) pregabalin 150 mg capsule (Lyrica) 150 mg PO QHS Nerve pain 06/14/18 Unknown History ferrous sulfate 325 mg (65 mg 325 mg PO DAILY supplement 04/25/20 Unknown History iron) tablet (Feosol) allopurinol 100 mg tablet 100 mg PO DAILY #30 tabs 11/18/23 Unknown Rx ascorbic acid (vitamin C) 500 mg 1,000 mg (2 x 500 mg) PO DAILY #30 11/18/23 Unknown Rx tablet tabs calcium carbonate (Oyster Shell 500 mg PO BREAKFAST #30 tabs 11/18/23 Unknown Rx Calcium 500) insulin regular hum U-500 conc 500 See Rx Instructions .Route 11/18/23 Unknown Rx unit/mL(3 mL) subcut pen .COMPLEX Blood sugar 30 days #5 pens pregabalin 100 mg capsule (Lyrica) 100 mg PO BID #60 caps 11/19/23 Unknown Rx blood sugar diagnostic (OneTouch #100 ea 12/03/23 Unknown Rx Ultra Test strips) blood-glucose sensor (Dexcom G6 #9 ea 12/03/23 Unknown Rx Sensor device) blood-glucose transmitter (Dexcom #1 ea 12/03/23 Unknown Rx G6 Transmitter device) bupropion HCl 300 mg 24 hr tablet, 300 mg PO DAILY #90 tabs 12/03/23 Unknown Rx extended release losartan 50 mg tablet (Cozaar) 50 mg PO DAILY #90 tabs 12/03/23 Unknown Rx OneTouch Delica Plus Lancet 33 #100 ea 12/04/23 Unknown Rx gauge (lancets) blood sugar diagnostic (OneTouch #100 ea 12/04/23 Unknown Rx Ultra Test strips) buspirone 5 mg tablet 5 mg PO TID #90 tabs 12/11/23 Unknown Rx alprazolam 0.5 mg tablet (Xanax) 0.5 mg PO TID PRN PRN panic attack 12/25/23 Unknown History fiber 1 cap PO DAILY 12/25/23 Unknown History oxycodone 5 mg capsule 5 mg PO Q6H PRN PRN pain 12/25/23 Unknown History clotrimazole-betamethasone 1 applic topical BID 01/23/24 Unknown History %-0.05 % topical cream nitrofurantoin 100 mg PO Q12 #14 CAPSULES 01/23/24 Unknown Rx monohydrate/macrocrystals 100 mg capsule nystatin 100,000 unit/gram topical topical BID 01/23/24 Unknown History ointment nystatin 100,000 unit/gram topical 1 applic topical BID 10 days #30 01/23/24 Unknown Rx powder (Klayesta) grams insulin lispro 100 unit/mL 3 unit (0.03 mL) subcut TID PRN 02/04/24 Unknown Rx subcutaneous pen elevated BS #15 mL levothyroxine 300 mcg tablet 300 mcg PO .qd, 2 on Thursday #30 02/18/24 Unknown Rx tabs anastrozole 1 mg tablet (Arimidex) 1 mg PO DAILY #90 tabs 02/24/24 Unknown Rx Allergy/AdvReac Type Severity Reaction Status Date / Time No Known Allergies Allergy Verified 03/02/24 08:55 Family History Mother Ovarian cancer Hypertension Arthritis Uterine cancer Fibrocystic disease of breast Hypothyroid Father , Age 86-CHF Hypertension Arthritis Diverticulitis of colon Depression CAD (coronary artery disease) Sister Hypertension Depression CVA (cerebral vascular accident) Fibrocystic disease of breast Diabetes Bleeding disorder Portal hypertension Surgical History Hx of cystoscopy Hx of total thyroidectomy History of tonsillectomy History of carpal tunnel release History of cardiac radiofrequency ablation History of total abdominal hysterectomy and bilateral salpingo-oophorectomy History of below-knee amputation S/P cystoscopy with ureteral stent placement History of right below knee amputation History of hand surgery H/O cardiac radiofrequency ablation (02/15/13) History of right and left heart catheterization (07/03/17) H/O colonoscopy H/O abdominal hysterectomy H/O carpal tunnel repair Previous section History of tonsillectomy Hx of cholecystectomy Surgical menopause Social History Smoking Status: Never smoker second hand exposure: No alcohol intake: never substance use type: does not use caffeine: No Vital Signs Vital Signs Vital Signs: 03/01/24 15:53 Temperature 98.6 F Temperature Source Temporal Pulse Rate 73 Respiratory Rate 18 Blood Pressure 136/37 H Blood Pressure Mean 70 Blood Pressure Source Monitor Blood Pressure Position Semi-Fowlers Blood Pressure Location Left Forearm Oxygen Delivery Method Room Air Weight Weight: 335 lb Body Mass Index (BMI) 54.1 Physical Exam Narrative ECOG 2, seen in a wheelchair Const alert, oriented x3 and no apparent distress Constitutional Narrative: The patient is morbidly obese. Her BMI is 54.1. General Appearance: cooperative, comfortable, well kempt and well developed Orientation / Consciousness: awake, oriented to person, oriented to place and oriented to time Exam Limitations: no limitations Nutritional Appearance: morbidly obese HEENT normocephalic and head/scalp atraumatic Head and Scalp: normal to inspection Nose: external nose normal External Ear: external ears normal Eyes EOMs intact bilaterally General Eye: normal appearance of both eyes Neck full ROM Resp normal respiratory effort, normal air movement, no retractions and no use of accessory muscles Effort and Inspection: able to speak in complete sentences Skin Skin Narrative: The patient has a severe erythematous rash in her perineal area and in the crural regions of the groin. Wound Narrative: A right below-knee amputation is noted. One dehiscent wound on the right BKA incision persists. This wound demonstrates significant improvement, with a decrease in size and depth. Dimensions are documented elsewhere. The wound is pink and healthy in appearance, with a small amount of bioburden. There is thai dence of active granulation tissue and peripheral epithelialization. There is no sign of infection or cellulitis. Neuro oriented x3, CN's II-XII intact bilaterally, moves all extremities, no focal motor deficits and no sensory deficits noted Sensorium / Orientation: awake, alert, oriented to person, oriented to place and oriented to time Speech: speech normal Psych mental status grossly normal and thought process normal Attitude: calm and engaged Activity / Motor Behavior: appropriate eye contact Speech: normal speech Thought Process: normal thought process Attention / Concentration: attention grossly intact Debridement Note Debridement Note Wound debrided: Dehiscent right below-knee amputation stump incision Laterality: Right Type of Debridement: Excisional debridement Anesthesia Used: 5% Lidocaine Gel Depth: Down to and including healthy tissue and in the subcutaneous layer Percentage of wound debrided: 100 Instrument Used: 5mm curette Tissue Removed: Bioburden Severity: Fat Layer Exposed Amount of bleeding with debridement: Mild Bleeding Controlled with: Compression and gauze Patient tolerated procedure: Patient tolerated procedure well Debridement Free Text: An excisional debridement was performed, and was tolerated well by the patient. Having obtained preauthorization for the use of a skin substitute, a TheraSkin allograft was selected for application today. This is the 4th such application of an allograft. A 3 cm? TheraSkin fenestrated allograft was selected. The allograft was removed from its sterile packaging following the appropriate preparation. It was then placed in the appropriate orientation topically on the patient's dehiscent wound. The size of the allograft was appropriate, covering the entire open wound without excess. 100% of the allograft was utilized. Once in place, the allograft was secured at its periphery using Dermabond. Adaptic Touch was then placed, and secured using Steri-Strips. The Wound VAC was then carefully applied. It is to continue at 125 mmHg continuous suction, to be changed twice a week. 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 ) Arrival Mode Wheelchair Wheelchair Transfer Assistance None Accompanied by Patient Identification Verified (Name & Yes Yes ) Patient Requires Transmission-Based No Precautions Height and Weight Body Mass Index (BMI) 54.1 54.1 BMI Classification Obese Obese Vital Signs Temperature (97.8 F-99.1 F) 97.4 F L 98.6 F Temperature Source Temporal Temporal Pulse Rate (60-100) 97 73 Pulse Location Monitor Monitor Respiratory Rate (12-18) 18 18 Respiratory rate source Observation Observation Oxygen Delivery Method Room Air Blood Pressure (90/60-120/80) 146/71 H 136/37 H Blood Pressure Mean 96 70 Source Monitor Monitor Position Semi-Fowlers Semi-Fowlers Blood Pressure Location Left Arm Left Forearm History Since Last Visit- (Skip if this is Patient's initial visit) Have you changed medications since your No last visit? Any new allergies or adverse reactions No Had a fall/change in ADL's that may No increase risk of falls Signs or symptoms of abuse and/or No neglect since last visit Have you been in the hospital since your No last visit? Has dressing in place as prescribed Yes Has compression in place as prescribed N/A Has offloadiing in place as prescribed N/A Experienced any changes in pain level or No management Left Footwear Regular Shoe Right Footwear No Footwear Pain Scale: 0-10 Numeric Is Patient Pain Free? Yes Yes - Nurse 1 - General Ulcer Measurement Start: 02/26/24 12:00 Freq: Status: Active Protocol: Activity Type Activity Date Activity User E-sign Co-sign Detail Recorded Client Recorded Date Recorded By Document 02/26/24 12:00 RB wound 02/26/24 12:02 RB Document 03/01/24 15:53 KW kl 03/01/24 16:06 KW 02/26/24 03/01/24 12:00 15:53 Wound Center Nurse 1 #1 RT superior stump -Current Size (cm) - Length 1.4 -Current Size (cm) - Width 1.2 -Current Size (cm) - Depth 0.1 -Total Square Cm 1.68 -Date of Last Picture (Recall this 03/01/24 field) -Epithelialization Small 1-33% -Exudate Amt Small -Exudate Type Serosanguineous -Wound Margin Distinct, Outline Attached -Granulation Amt Large (67-100%) -Granulation Quality Hyper- granulation,Red -Texture (Fadumo-wound Skin Appearance) Assessed -Moisture (Fadumo-wound Skin Appearance) Assessed -Color (Fadumo-wound Skin Appearance) Assessed -Temperature (Fadumo-wound Skin No Abnormality Appearance) (Pt Warm) -Tenderness on Palpation (Fadumo-wound No Skin Appearance) -Ulcer Cleansing Soap and Water -Foul Odor after Cleansing No -Anesthetic Used 5% Lidocaine Gel -Wound Comment(s) theraskin and veil left in place new steristrips applied WC - Nurse 2 - General Ulcer CM Notes Start: 02/26/24 12:00 Freq: Status: Active Protocol: Activity Type Activity Date Activity User E-sign Co-sign Detail Recorded Client Recorded Date Recorded By Document 03/01/24 16:23 DS 1 03/01/24 16:27 DS 03/01/24 16:23 Wound Center Nurse 2 -Time 16:23 -Correct Patient Yes -Correct Side, Site, Position Yes -Correct Procedure Yes -Procedure Performed Yes -Type of Procedure Debridement -Clinical Debridement Subcutaneous -Tissue Removed Subcutaneous -Post Debridement (cm) - Length 1.4 -Post Debridement (cm) - Width 1.8 -Post Debridement (cm) - Depth 0.1 -Total Square (Post) (cm) 2.52 -Area of Debridement (cm) - Length 1.4 -Area of Debridement (cm) - Width 1.8 -Total Square (Area) (cm) 2.52 -Tunneling No -Undermining/Tunneling No -Circular Undermining No -Wound/Ulcer Outcome Not Healed -Bioengineered Tissue Yes -Type of Bioengineered Tissue Theraskin -Expiration Date 10/14/28 -Product Lot Number [id number] -Percent Used 100 -Lot number of Saline Used [id number] -Bleeding Controlled with Pressure -Treatment Response Procedure Tolerated Well -Debridement - Subq, 1st 20sq cm No -Apply Skin Sub - 1st 25 sq cm - Legs 1 -Theraskin - 3TS (3 SQ CM) (per sq cm) 3 Pain Scale: 0-10 Numeric Is Patient Pain Free? Yes - Nurse 3 - General Ulcer D/C NN Start: 02/26/24 12:00 Freq: Status: Active Protocol: Activity Type Activity Date Activity User E-sign Co-sign Detail Recorded Client Recorded Date Recorded By Document 02/26/24 12:00 RB wound 02/26/24 12:02 RB Document 03/01/24 16:49 RB woumd 03/01/24 16:50 RB 02/26/24 03/01/24 12:00 16:49 Vital Signs Temperature (97.8 F-99.1 F) 97.4 F L Temperature Source Temporal Pulse Rate (60-100) 97 Pulse Location Monitor Respiratory Rate (12-18) 18 Respiratory rate source Observation Blood Pressure (90/60-120/80) 146/71 H Blood Pressure Mean 96 Source Monitor Position Semi-Fowlers Blood Pressure Location Left Arm Pain Scale: 0-10 Numeric Is Patient Pain Free? Yes Yes Wound Care Center Nurse 3 #1 RT superior stump -Ulcer Cleansing Wound Cleanser -Negative Pressure Wound Therapy Continue Continue -Setting (mmHg) 125 125 -Negative Pressure is Continuous Continuous -NPWT Application Charge NPWT </= 50 sq NPWT </= 50 sq cm ($) cm ($) Right -Other justin justin Treatment Response Procedure Procedure Tolerated Well Tolerated Well WC - Visit Discharge Discharge Condition Stable Stable Ambulatory Status Wheelchair Ambulatory Transportation Private Auto Private Auto Medication Reconcilliation completed & No No provided to patient/care provider Clinical Summary of Care Provided Yes Yes Charges/Coding Procedures Integumentary [id number]: [id number] Skin sub graft trnk/arm/leg Assessment/Plan Assessment/Plan (1) Non-pressure chronic ulcer of right calf with fat layer exposed: CODE(S): L97.212 - Non-pressure chronic ulcer of right calf with fat layer exposed (2) Surgical wound dehiscence: CODE(S): T81.31XA - Disruption of external operation (surgical) wound, not elsewhere classified, initial encounter QUALIFIERS: Encounter type: subsequent encounter Qualified Code(s): T81.31XD - Disruption of external operation (surgical) wound, not elsewhere classified, subsequent encounter (3) History of right below knee amputation: CODE(S): Z89.511 - Acquired absence of right leg below knee (4) Tinea cruris: CODE(S): B35.6 - Tinea cruris (5) Morbid obesity with BMI of 50.0-59.9, adult: CODE(S): E66.01 - Morbid (severe) obesity due to excess calories; Z68.43 - Body mass index [BMI] 50.0-59.9, adult (6) Diabetes mellitus, type 2: CODE(S): E11.9 - Type 2 diabetes mellitus without complications QUALIFIERS: Diabetes mellitus care home insulin use: with care home use Diabetes mellitus complication status: with kidney complications Diabetes mellitus complication detail: with chronic kidney disease Chronic kidney disease stage: stage 3 (moderate) Chronic kidney disease stage 3 subtype: stage 3a (GFR 45-59) Qualified Code(s): E11.22 - Type 2 diabetes mellitus with diabetic chronic kidney disease; N18.31 - Chronic kidney disease, stage 3a; Z79.4 - snf (current) use of insulin (7) Below knee amputation: CODE(S): S88.119A - 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, unspecified lower leg, initial encounter QUALIFIERS: Encounter type: sequela Laterality: bilateral Qualified Code(s): S88.111S - Complete traumatic amputation at level between kne e and ankle, right lower leg, sequela; S88.112S - 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, left lower leg, sequela (8) Hypothyroid: CODE(S): E03.9 - Hypothyroidism, unspecified QUALIFIERS: Hypothyroidism type: acquired Qualified Code(s): E03.9 - Hypothyroidism, unspecified (9) Benign essential HTN: CODE(S): I10 - Essential (primary) hypertension (10) Breast cancer in female: CODE(S): C50.919 - Malignant neoplasm of unspecified site of unspecified female breast QUALIFIERS: Breast location: unspecified site of breast Estrogen receptor status: positive Laterality: right Qualified Code(s): C50.911 - Malignant neoplasm of unspecified site of right female breast; Z17.0 - Estrogen receptor positive status [ER+] (11) History of kidney stones: CODE(S): Z87.442 - Personal history of urinary calculi (12) Physical debility: CODE(S): R53.81 - Other malaise (13) Hx of supraventricular tachycardia: CODE(S): Z86.79 - Personal history of other diseases of the circulatory system (14) Hyperlipidemia: CODE(S): E78.5 - Hyperlipidemia, unspecified (15) GERD (gastroesophageal reflux disease): CODE(S): K21.9 - Gastro-esophageal reflux disease without esophagitis (16) Pulmonary hypertension: CODE(S): I27.20 - Pulmonary hypertension, unspecified (17) Chronic renal failure, stage 3 (moderate): CODE(S): N18.30 - Chronic kidney disease, stage 3 unspecified (18) Diverticulosis: CODE(S): K57.90 - Diverticulosis of intestine, part unspecified, without perforation or abscess without bleeding (19) Rheumatoid arthritis: CODE(S): M06.9 - Rheumatoid arthritis, unspecified (20) History of endometrial cancer: CODE(S): Z85.42 - Personal history of malignant neoplasm of other parts of uterus (21) History of total abdominal hysterectomy and bilateral salpingo- oophorectomy: CODE(S): Z90.710 - Acquired absence of both cervix and uterus; Z90.722 - Acquired absence of ovaries, bilateral; Z90.79 - Acquired absence of other genital organ(s) (22) History of cardiac radiofrequency ablation: CODE(S): Z98.890 - Other specified postprocedural states (23) History of carpal tunnel release: CODE(S): Z98.890 - Other specified postprocedural states (24) History of tonsillectomy: CODE(S): Z90.89 - Acquired absence of other organs (25) Right leg swelling: CODE(S): M79.89 - Other specified soft tissue disorders PLAN: Plan This is a 63-year-old female with multiple pre-existing medical problems, who presented with a 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 She underwent right below-knee amputation on October 19, 2023 at [facility]. Upon removal of her surgical luisana, several weeks following surgery, she developed a surgical wound dehiscence. She was referred to the [facility] for definitive management. 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 The patient has been advised to elevate her right lower extremity to heart level as much as possible. She admits to sleeping on a flat mattress at night. Elevation will help to minimize swelling. A TheraSkin allograft was applied in our facility today. This is the 4th such allograft application. Once applied, the wound VAC was applied as well, to be changed twice weekly. The wound VAC setting is 125 mmHg with continuous suction. Improvement has been observed since initiation of negative pressure wound therapy and allograft applications. It is hoped that the healing process will be expedited by the use of both negative pressure wound therapy and allografts, as surgical mastectomy is anticipated in the near future, and awaits further wound healing. Thus far, the patient has shown good progress in healing. The patient has indicated that she has an appointment with her surgeon, Dr. Knapp, in the near future, so a discussion regarding her impending breast surgery can be undertaken. Optimizing nutritional intake and glycemic control have been discussed. A nutritional supplement, such as Glucerna, would be appropriate. Wound cultures were obtained several weeks ago, and were positive for Enterobacter cloacae, Staphylococcus epidermidis, Enterococcus faecalis, Staphylococcus lugdunensis, anaerobic cocci, and Bacteroides fragilis. The patient was placed on Bactrim double strength twice daily orally for 10 days, and amoxicillin 500 mg p.o. orally twice daily for 10 days. The courses of antibiotics have been completed. Infection appears to have resolved. The wound remains pink and healthy with evidence of active granulation tissue. The patient is to follow-up in 2 weeks for reassessment. The patient's wound VAC is to be changed twice weekly. The patient indicates that her oncologist has implemented hormonal therapy. The decision to proceed with breast surgery will be deferred to Dr. Knapp. Total time: 25 minutes
[2024-03-04 09:02] VITALS: BP 126/61; PULSE 80; RESP 18; TEMP 36.4; BMI 54.1
[2024-03-08 12:56] VITALS: BP 165/73; PULSE 107; RESP 18; TEMP 37; BMI 54.1
[2024-03-11 13:35] VITALS: RESP 18; BMI 54.1
[2024-03-14 11:26] VITALS: BP 156/52; PULSE 85; RESP 20; TEMP 36.4; BMI 54.1
--- NOTE | 2024-03-14 12:56 | PN.PCM_ITS ---
History of Present Illness Date of Service: 03/14/24 Chief Complaint: Surgical wound dehiscence of the right below-knee amputation stump incision History of Wound: This is a 63-year-old morbidly obese female with multiple pre- existing medical conditions. She is a longstanding diabetic and has been poorly controlled. She suffers from diabetic peripheral neuropathy. She developed a right Charcot foot deformity, with collapse of her right arch. Her condition resulted in a right below-knee amputation which was performed at [facility] by Dr. Narayan on October 19, 2023. The patient had a relatively uncomplicated postoperative course. She was transferred to the [facility] rehabilitation unit, where she continued to convalesce for several weeks. Several weeks postoperatively, Dr. Damon's staff removed the patient's surgical luisana, and the patient subsequently developed a dehiscence. She was referred to the [facility] for management of her right below-knee amputation stump incisional dehiscence. The patient had been using Neosporin and gauze topically. She had also been using a Coban wrap and had been fitted with a stump forensic economist by [employer]. The patient's multiple pre-existing medical conditions are listed elsewhere. Of note, she underwent right breast needle biopsy on November 26, 2023, which was indicative of invasive ductal carcinoma. She is under the care of other providers for management of this recent diagnosis, including her surgeon, Dr. Knapp. Laboratory results obtained on December 03, 2023, were as follows: Sodium 139, potassium 4.0, chloride 106, BUN 21, creatinine 1.21, glucose 120, calcium 9.1, total bilirubin 0.60, AST 23, ALT 29, alkaline phosphatase 103, total protein 7.1, albumin 3.7. Progress of Wound: Courtesy visit for Dr. Alfonso. Right BKA ulcer is smaller in size. Ulcer bed is beefy pink. Minimal depth. There is a blue suture that is on the medial edge that was removed without difficulty. Objective Data Objective Data Vital Signs: Vital Signs Temp Pulse Resp BP O2 Del Method 97.6 F L 85 20 H 156/52 H Room Air 03/14/24 11:26 03/14/24 11:26 03/14/24 11:26 03/14/24 11:03/11/24 13:35 Oxygen Delivery Method Room Air Weight: 335 lb Body Mass Index (BMI) 54.1 Charges/Coding Procedures Integumentary 150xxx-152xx: 12721 Skin sub graft trnk/arm/leg Debridement Note Debridement Note Wound debrided: BKA ulcer Laterality: Right Type of Debridement: Excisional debridement Anesthesia Used: 5% Lidocaine Gel Depth: Down to and including healthy tissue and in the subcutaneous layer Percentage of wound debrided: 100 Instrument Used: 5mm curette Tissue Removed: Non viable tissue and slough Severity: Fat Layer Exposed Amount of bleeding with debridement: Mild Bleeding Controlled with: Compression and gauze Patient tolerated procedure: Patient tolerated procedure well Post-Debridement Measurements and Additional Note: Post-Debridement Measurements/Treatment - Nurse 1 - General Ulcer Assessment Start: 02/26/24 12:00 Freq: Status: Active Protocol: MATT Activity Type Activity Date Activity User E-sign Co-sign Detail Recorded Client Recorded Date Recorded By Document 02/26/24 12:00 RB wound 02/26/24 12:02 RB Document 03/01/24 15:53 KW kl 03/01/24 16:06 KW Document 03/04/24 09:02 DL [id number] 03/04/24 09:22 DL Document 03/08/24 12:56 KW gfj 03/08/24 13:11 KW Document 03/11/24 13:35 KW ljk 03/11/24 13:36 KW Document 03/14/24 11:26 DL [id number] 03/14/24 11:40 DL 02/26/24 03/01/24 03/04/24 12:00 15:53 09:02 - Today's Visit Information Type of service Nurse-only Follow-up Visit Nurse-only Visit (Physician/VISUAL ARTIST Visit ) Arrival Mode Wheelchair Wheelchair Wheelchair Transfer Assistance None Accompanied by Patient Identification Verified (Name & Yes Yes Yes ) Patient Requires Transmission-Based No Precautions Height and Weight Body Mass Index (BMI) 54.1 54.1 54.1 BMI Classification Obese Obese Obese Vital Signs Temperature (97.8 F-99.1 F) 97.4 F L 98.6 F 97.6 F L Temperature Source Temporal Temporal Temporal Pulse Rate (60-100) 97 73 80 Pulse Location Monitor Monitor Monitor Respiratory Rate (12-18) 18 18 18 Respiratory rate source Observation Observation Observation Oxygen Delivery Method Room Air Room Air Blood Pressure (90/60-120/80) 146/71 H 136/37 H 126/61 H Blood Pressure Mean (mm Hg) 96 70 82 Source Monitor Monitor Monitor Position Semi-Fowlers Semi-Fowlers Semi-Fowlers Blood Pressure Location Left Arm Left Forearm Left Arm History Since Last Visit- (Skip if this is Patient's initial visit) Have you changed medications since your No No last visit? Any new allergies or adverse reactions No No Had a fall/change in ADL's that may No No increase risk of falls Signs or symptoms of abuse and/or No No neglect since last visit Have you been in the hospital since your No No last visit? Has dressing in place as prescribed Yes Yes Has compression in place as prescribed N/A Yes Has offloadiing in place as prescribed N/A N/A Experienced any changes in pain level or No No management Left Footwear Regular Shoe Regular Shoe Right Footwear No Footwear No Footwear Pain Scale: 0-10 Numeric Is Patient Pain Free? Yes Yes Yes 03/08/24 03/11/24 03/14/24 12:56 13:35 11:26 WC - Today's Visit Information Type of service Nurse-only Nurse-only Follow-up Visit Visit Visit (Physician/VISUAL ARTIST ) Arrival Mode Wheelchair Wheelchair Ambulatory, Wheelchair Transfer Assistance None Accompanied by Patient Identification Verified (Name & Yes Yes Yes ) Patient Requires Transmission-Based No Precautions Height and Weight Body Mass Index (BMI) 54.1 54.1 54.1 BMI Classification Obese Obese Obese Vital Signs Temperature (97.8 F-99.1 F) 98.6 F 97.6 F L Temperature Source Temporal Temporal Pulse Rate (60-100) 107 H 85 Pulse Location Monitor Monitor Respiratory Rate (12-18) 18 18 20 H Respiratory rate source Observation Observation Observation Oxygen Delivery Method Room Air Room Air Blood Pressure (90/60-120/80) 165/73 H 156/52 H Blood Pressure Mean (mm Hg) 103 86 Source Monitor Monitor Position Sitting Blood Pressure Location Left Arm History Since Last Visit- (Skip if this is Patient's initial visit) Have you changed medications since your No No No last visit? Any new allergies or adverse reactions No No No Had a fall/change in ADL's that may No No No increase risk of falls Signs or symptoms of abuse and/or No No No neglect since last visit Have you been in the hospital since your No No No last visit? Has dressing in place as prescribed Yes Yes Yes Has compression in place as prescribed Yes Yes Yes Has offloadiing in place as prescribed Yes N/A Yes Experienced any changes in pain level or No No No management Left Footwear Regular Shoe Right Footwear No Footwear Pain Scale: 0-10 Numeric Is Patient Pain Free? Yes Yes Yes WC - Nurse 1 - General Ulcer Measurement Start: 02/26/24 12:00 Freq: Status: Active Protocol: Activity Type Activity Date Activity User E-sign Co-sign Detail Recorded Client Recorded Date Recorded By Document 02/26/24 12:00 RB wound 02/26/24 12:02 RB Document 03/01/24 15:53 KW kl 03/01/24 16:06 KW Document 03/04/24 09:02 DL [id number] 03/04/24 09:22 DL Document 03/14/24 11:26 DL [id number] 03/14/24 11:40 DL 02/26/24 03/01/24 03/04/24 12:00 15:53 09:02 Wound Center Nurse 1 #1 RT superior stump -Current Size (cm) - Length 1.4 -Current Size (cm) - Width 1.2 -Current Size (cm) - Depth 0.1 -Total Square Cm 1.68 -Date of Last Picture (Recall this 03/01/24 field) -Photo Taken -Epithelialization Small 1-33% -Exudate Amt Small -Exudate Type Serosanguineous -Wound Margin Distinct, Distinct, Outline Outline Attached Attached -Granulation Amt Large (67-100%) -Granulation Quality Hyper- granulation,Red -Slough/Fibrin -Necrosis Amt -Structure Exposed -Texture (Fadumo-wound Skin Appearance) Assessed -Moisture (Fadumo-wound Skin Appearance) Assessed -Color (Fadumo-wound Skin Appearance) Assessed -Temperature (Fadumo-wound Skin No Abnormality No Abnormality Appearance) (Pt Warm) (Pt Warm) -Tenderness on Palpation (Fadumo-wound No No Skin Appearance) -Ulcer Cleansing Soap and Water -Foul Odor after Cleansing No -Anesthetic Used 5% Lidocaine Gel -Wound Comment(s) theraskin and Theraskin veil left in intact, Vac place new removed and new steristrips applied,new applied steri stirps applied. 03/14/24 11:26 Wound Center Nurse 1 #1 RT superior stump -Current Size (cm) - Length 1 -Current Size (cm) - Width 2 -Current Size (cm) - Depth 0.1 -Total Square Cm 2 -Date of Last Picture (Recall this field) -Photo Taken Yes -Epithelialization -Exudate Amt Small -Exudate Type Serosanguineous -Wound Margin Distinct, Outline Attached -Granulation Amt Large (67-100%) -Granulation Quality Red -Slough/Fibrin Yes -Necrosis Amt None Present (0 %) -Structure Exposed N/A -Texture (Fadumo-wound Skin Appearance) Scarring -Moisture (Fadumo-wound Skin Appearance) No Abnormality -Color (Fadumo-wound Skin Appearance) -Temperature (Fadumo-wound Skin No Abnormality Appearance) (Pt Warm) -Tenderness on Palpation (Fadumo-wound No Skin Appearance) -Ulcer Cleansing Soap and Water -Foul Odor after Cleansing No -Anesthetic Used 5% Lidocaine Gel -Wound Comment(s) WC - Nurse 2 - General Ulcer CM Notes Start: 02/26/24 12:00 Freq: Status: Active Protocol: Activity Type Activity Date Activity User E-sign Co-sign Detail Recorded Client Recorded Date Recorded By Document 03/01/24 16:23 DS 1 03/01/24 16:27 DS Document 03/14/24 12:04 [id number] 03/14/24 12:08 03/01/24 03/14/24 16:23 12:04 Wound Center Nurse 2 #1 RT superior stump -Time 16:23 12:05 -Correct Patient Yes Yes -Correct Side, Site, Position Yes Yes -Correct Procedure Yes Yes -Procedure Performed Yes Yes -Type of Procedure Debridement Debridement -Clinical Debridement Subcutaneous Subcutaneous -Tissue Removed Subcutaneous Subcutaneous -Post Debridement (cm) - Length 1.4 2.0 -Post Debridement (cm) - Width 1.8 1.0 -Post Debridement (cm) - Depth 0.1 0.1 -Total Square (Post) (cm) 2.52 2.00 -Area of Debridement (cm) - Length 1.4 2.0 -Area of Debridement (cm) - Width 1.8 1.0 -Total Square (Area) (cm) 2.52 2.00 -Tunneling No No -Undermining/Tunneling No No -Circular Undermining No No -Wound/Ulcer Outcome Not Healed Not Healed -Ulcer Cleansing Rinsed/ Irrigated with Saline -Foul Odor after Cleansing No -Bioengineered Tissue Yes Yes -Type of Bioengineered Tissue Theraskin Theraskin -Expiration Date 10/14/28 06/06/28 -Product Lot Number [id number] -Percent Used 100 100 -Lot number of Saline Used [id number] -Bleeding Controlled with Pressure Pressure -Treatment Response Procedure Procedure Tolerated Well Tolerated Well -Offloading No -Debridement - Subq, 1st 20sq cm No No -Apply Skin Sub - 1st 25 sq cm - Legs 1 1 -Theraskin - 3TS (3 SQ CM) (per sq cm) 3 3 Pain Scale: 0-10 Numeric Is Patient Pain Free? Yes Yes - Nurse 3 - General Ulcer D/C NN Start: 02/26/24 12:00 Freq: Status: Active Protocol: Activity Type Activity Date Activity User E-sign Co-sign Detail Recorded Client Recorded Date Recorded By Document 02/26/24 12:00 RB wound 02/26/24 12:02 RB Document 03/01/24 16:49 RB woumd 03/01/24 16:50 RB Document 03/04/24 09:02 DL [id number] 03/04/24 09:22 DL Document 03/08/24 12:56 KW gfj 03/08/24 13:11 KW Document 03/11/24 13:35 KW ljk 03/11/24 13:36 KW 02/26/24 03/01/24 03/04/24 12:00 16:49 09:02 Vital Signs Temperature (97.8 F-99.1 F) 97.4 F L 97.6 F L Temperature Source Temporal Temporal Pulse Rate (60-100) 97 80 Pulse Location Monitor Monitor Respiratory Rate (12-18) 18 18 Respiratory rate source Observation Observation Oxygen Delivery Method Room Air Blood Pressure (90/60-120/80) 146/71 H 126/61 H Blood Pressure Mean (mm Hg) 96 82 Source Monitor Monitor Position Semi-Fowlers Semi-Fowlers Blood Pressure Location Left Arm Left Arm Pain Scale: 0-10 Numeric Is Patient Pain Free? Yes Yes Yes Wound Care Center Nurse 3 #1 RT superior stump -Ulcer Cleansing Wound Cleanser Soap and Water -Foul Odor after Cleansing No -Negative Pressure Wound Therapy Continue Continue Continue -Setting (mmHg) 125 125 125 -Negative Pressure is Continuous Continuous Continuous -NPWT Application Charge NPWT </= 50 sq NPWT </= 50 sq NPWT </= 50 sq cm ($) cm ($) cm ($) Right -Compression Wrap Jozef Wrap -Other jozef jozef Treatment Response Procedure Procedure Tolerated Well Tolerated Well WC - Visit Discharge Discharge Condition Stable Stable Stable Ambulatory Status Wheelchair Ambulatory Wheelchair Transportation Private Auto [employer] display technologies Auto Private Auto Accompanied by Medication Reconcilliation completed & No No No provided to patient/care provider Clinical Summary of Care Provided Yes Yes Yes Facility Type Home Health Orders Sent Yes 03/08/24 03/11/24 12:56 13:35 Vital Signs Temperature (97.8 F-99.1 F) 98.6 F Temperature Source Temporal Pulse Rate (60-100) 107 H Pulse Location Monitor Respiratory Rate (12-18) 18 18 Respiratory rate source Observation Observation Oxygen Delivery Method Room Air Room Air Blood Pressure (90/60-120/80) 165/73 H Blood Pressure Mean (mm Hg) 103 Source Monitor Position Sitting Blood Pressure Location Left Arm Pain Scale: 0-10 Numeric Is Patient Pain Free? Yes Yes Wound Care Center Nurse 3 #1 RT superior stump -Ulcer Cleansing Soap and Water Soap and Water -Foul Odor after Cleansing -Negative Pressure Wound Therapy Continue Continue -Setting (mmHg) 125 125 -Negative Pressure is Continuous Continuous -NPWT Application Charge NPWT </= 50 sq NPWT </= 50 sq cm ($) cm ($) Right -Compression Wrap Jozef Wrap Jozef Wrap -Other Treatment Response WC - Visit Discharge Discharge Condition Stable Stable Ambulatory Status Wheelchair Wheelchair Transportation Private Auto [employer] display [employer] Auto Accompanied by Medication Reconcilliation completed & No provided to patient/care provider Clinical Summary of Care Provided Yes Facility Type Orders Sent Assessment/Plan Assessment/Plan (1) Non-pressure chronic ulcer of right calf with fat layer exposed: CODE(S): L97.212 - Non-pressure chronic ulcer of right calf with fat layer exposed (2) Surgical wound dehiscence: CODE(S): T81.31XA - Disruption of external operation (surgical) wound, not elsewhere classified, initial encounter QUALIFIERS: Encounter type: subsequent encounter Qualified Code(s): T81.31XD - Disruption of external operation (surgical) wound, not elsewhere classified, subsequent encounter (3) History of right below knee amputation: CODE(S): Z89.511 - Acquired absence of right leg below knee (4) Morbid obesity with BMI of 50.0-59.9, adult: CODE(S): E66.01 - Morbid (severe) obesity due to excess calories; Z68.43 - Body mass index [BMI] 50.0-59.9, adult (5) Diabetes mellitus, type 2: CODE(S): E11.9 - Type 2 diabetes mellitus without complications QUALIFIERS: Chronic kidney disease stage: stage 3 (moderate) Chronic kidney disease stage 3 subtype: stage 3a (GFR 45-59) Diabetes mellitus complication detail: with chronic kidney disease Diabetes mellitus complication status: with kidney complications Diabetes mellitus penitentiary insulin use: with manager intermediate use Qualified Code(s): E11.22 - Type 2 diabetes mellitus with diabetic chronic kidney disease; N18.31 - Chronic kidney disease, stage 3a; Z79.4 - FDC (current) use of insulin (6) Below knee amputation: CODE(S): S88.119A - 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, unspecified lower leg, initial encounter QUALIFIERS: Encounter type: sequela Laterality: bilateral Qualified Code(s): S88.111S - 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, right lower leg, sequela; S88.112S - 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, left lower leg, sequela (7) Hypothyroid: CODE(S): E03.9 - Hypothyroidism, unspecified QUALIFIERS: Hypothyroidism type: acquired Qualified Code(s): E0 3.9 - Hypothyroidism, unspecified (8) Benign essential HTN: CODE(S): I10 - Essential (primary) hypertension (9) Breast cancer in female: CODE(S): C50.919 - Malignant neoplasm of unspecified site of unspecified female breast QUALIFIERS: Breast location: unspecified site of breast Estrogen receptor status: positive Laterality: right Qualified Code(s): C50.911 - Malignant neoplasm of unspecified site of right female breast; Z17.0 - Estrogen receptor positive status [ER+] (10) Physical debility: CODE(S): R53.81 - Other malaise (11) Right leg swelling: CODE(S): M79.89 - Other specified soft tissue disorders PLAN: Plan Patient evaluated at the wound healing center today. Courtesy visit for Dr. Alfonso. Patient is scheduled for bilateral mastectomy tomorrow during her normal wound center day. Wound care - Theraskin #5 placed today. 100% of the product used. Covered with wound veil and secured with steri strips. Topped with ABD and kerlix. Outer dressing above wound veil can be changed every 2-3 days and as needed. Discussed not getting this dressing wet in the shower. Wound VAC holiday this week. The ulcer is smaller and with her having surgery tomorrow, she needs a break from the wound VAC. Dr. Alfonso can determine next week if she still needs the wound vac. She is scheduled for bilateral mastectomy tomorrow by Dr. Estrada. She will be an overnight stay. I spoke to the inpatient wound nurse to have her change her dressing on Thursday before she would leave. Her can then change it Thursday or Thursday. Follow up one week with Dr. Alfonso. Call or come in sooner if develop any concerns.
[2024-03-22 15:39] VITALS: BP 165/45; PULSE 78; RESP 18; TEMP 36.6; BMI 54.1
--- NOTE | 2024-03-22 16:49 | HP.PCM_ITS ---
History of Present Illness Date of Service: 03/22/24 Chief Complaint: Surgical wound dehiscence of the right below-knee amputation stump incision History of Wound: This is a 63-year-old morbidly obese female with multiple pre- existing medical conditions. She is a longstanding diabetic and has been poorly controlled. She suffers from diabetic peripheral neuropathy. She developed a right Charcot foot deformity, with collapse of her right arch. Her condition resulted in a right below-knee amputation which was performed at [facility] by Dr. Narayan on October 19, 2023. The patient had a relatively uncomplicated postoperative course. She was transferred to the [facility] rehabilitation unit, where she continued to convalesce for several weeks. Several weeks postoperatively, Dr. Damon's staff removed the patient's surgical luisana, and the patient subsequently developed a dehiscence. She was referred to the [facility] for management of her right below-knee amputation stump incisional dehiscence. The patient had been using Neosporin and gauze topically. She had also been using a Coban wrap and had been fitted with a stump acute care occupational therapist by [employer] The patient's multiple pre-existing medical conditions are listed elsewhere. Of note, she underwent right breast needle biopsy on November 26, 2023, which was indicative of invasive ductal carcinoma. She is under the care of other providers for management of this recent diagnosis, including her surgeon, Dr. Knapp. Laboratory results obtained on December 03, 2023, were as follows: Sodium 139, potassium 4.0, chloride 106, BUN 21, creatinine 1.21, glucose 120, calcium 9.1, total bilirubin 0.60, AST 23, ALT 29, alkaline phosphatase 103, total protein 7.1, albumin 3.7. Progress of Wound: [facility] Medical History GERD (gastroesophageal reflux disease) Hyperlipidemia Tinea cruris Non-pressure chronic ulcer of right calf with fat layer exposed Wears glasses Post-menopausal Cancer Anxiety Open wound Thyroid disease Insulin dependent diabetes mellitus Uses wheelchair Fatty liver High cholesterol Dietary restriction Non-smoker History of edema History of echocardiogram History of stress test Cardiology follow-up encounter Surgical wound dehiscence Right leg swelling History of endometrial cancer Rheumatoid arthritis Diverticulosis Chronic renal failure, stage 3 (moderate) Pulmonary hypertension GERD (gastroesophageal reflux disease) Hyperlipidemia History of kidney stones Breast cancer in female Morbid obesity with BMI of 50.0-59.9, adult Hydronephrosis Ureteral calculus Charcot ankle Diabetic neuropathy Morbid obesity with BMI of 50.0-59.9, adult Diverticulosis Diabetes mellitus, type 2 Chronic renal failure (CRF), stage 3a Anemia Rheumatoid arthritis Chronic pain CPAP (continuous positive airway pressure) dependence Pulmonary hypertension BRITT (obstructive sleep apnea) Thyromegaly Hx of supraventricular tachycardia Nephrolithiasis Rosacea Fatty liver External hemorrhoid GERD without esophagitis Benign essential HTN Bilateral carpal tunnel syndrome Hyperlipidemia Low vitamin B12 level Multinodular goiter Tubular adenoma Adenocarcinoma of endometrium Home Medications ?Medication ?Instructions ?Recorded ?Last Taken ?Type aspirin 81 mg tablet,delayed 81 mg PO DAILY Heart health 01/11/16 03/06/24 History release cetirizine 10 mg capsule 10 mg PO DAILY Allergies 01/11/16 03/15/24 History metoprolol succinate 100 mg 100 mg PO DAILY BP 01/11/16 03/15/24 History tablet,extended release 24 hr multivitamin 1 ea PO DAILY Supplement 01/11/16 03/14/24 History omeprazole 40 mg capsule,delayed 40 mg PO DAILY GERD 01/11/16 03/15/24 History release simvastatin 20 mg tablet 20 mg PO QHS Cholestrol 01/11/16 03/14/24 History cyanocobalamin (vitamin B-12) 1,000 mcg PO DAILY Supplement 07/02/17 03/14/24 History 1,000 mcg sublingual tablet hydroxychloroquine 200 mg tablet 200 mg PO BID Platelets 04/28/18 03/14/24 History (Plaquenil) pregabalin 150 mg capsule (Lyrica) 150 mg PO QHS NERVE PAIN 06/14/18 03/15/24 Hi story ferrous sulfate 325 mg (65 mg 325 mg PO DAILY supplement 04/25/20 03/14/24 History iron) tablet (Feosol) allopurinol 100 mg tablet 100 mg PO DAILY #30 tabs 11/18/23 03/14/24 Rx ascorbic acid (vitamin C) 500 mg 1,000 mg (2 x 500 mg) PO DAILY #30 11/18/23 03/14/24 Rx tablet tabs calcium carbonate (Oyster Shell 500 mg PO BREAKFAST #30 tabs 11/18/23 03/14/24 Rx Calcium 500) blood sugar diagnostic (OneTouch #100 ea 12/03/23 Unknown Rx Ultra Test strips) blood-glucose sensor (Dexcom G6 #9 ea 12/03/23 Unknown Rx Sensor device) blood-glucose transmitter (Dexcom #1 ea 12/03/23 Unknown Rx G6 Transmitter device) losartan 50 mg tablet (Cozaar) 50 mg PO DAILY #90 tabs 12/03/23 03/15/24 Rx OneTouch Delica Plus Lancet 33 #100 ea 12/04/23 Unknown Rx gauge (lancets) blood sugar diagnostic (OneTouch #100 ea 12/04/23 Unknown Rx Ultra Test strips) buspirone 5 mg tablet 5 mg PO TID #90 tabs 12/11/23 03/15/24 Rx alprazolam 0.5 mg tablet (Xanax) 0.5 mg PO TID PRN PRN panic attack 12/25/23 12/07/23 History fiber 1 cap PO DAILY 12/25/23 03/14/24 History oxycodone 5 mg capsule 5 mg PO Q6H PRN PRN pain 12/25/23 12/21/23 History anastrozole 1 mg tablet (Arimidex) 1 mg PO DAILY #90 tabs 02/24/24 03/15/24 Rx escitalopram oxalate 10 mg tablet 10 mg PO DAILY 03/03/24 03/14/24 History insulin regular hum U-500 conc 500 15 unit subcut LUNCH 03/04/24 03/14/24 History unit/mL(3 mL) subcut pen insulin regular hum U-500 conc 500 35 unit subcut DINNER 03/04/24 03/14/24 History unit/mL(3 mL) subcut pen insulin regular hum U-500 conc 500 35 unit subcut QHS 03/04/24 03/14/24 History unit/mL(3 mL) subcut pen insulin regular hum U-500 conc 500 175 unit subcut BREAKFAST Blood 03/04/24 03/15/24 History unit/mL(3 mL) subcut pen sugar levothyroxine 300 mcg tablet 300 mcg PO DAILY 03/04/24 03/15/24 History levothyroxine 300 mcg tablet 600 mcg PO GALARZA 03/04/24 03/13/24 History semaglutide 2 mg/dose (8 mg/3 mL) 1 mg subcut TH 03/04/24 02/25/24 History subcutaneous pen injector (Ozempic) insulin lispro 100 unit/mL 3 unit subcut TID PRN BLOOD SUGARS 03/15/24 Unknown History subcutaneous pen insulin lispro 100 unit/mL See Protocol subcut DAILY PRN 03/15/24 03/13/24 History subcutaneous pen elevated BS pregabalin 100 mg capsule (Lyrica) 100 mg PO BID NERVE PAIN 03/15/24 03/15/24 History acetaminophen 325 mg tablet 650 mg (2 x 325 mg) PO Q6H PRN PRN 03/16/24 Unknown Rx Pain Score 1-10 #0 tabs Allergy/AdvReac Type Severity Reaction Status Date / Time No Known Allergies Allergy Verified 03/18/24 12:48 Family History Mother Ovarian cancer Hypertension Arthritis Uterine cancer Fibrocystic disease of breast Hypothyroid Father , Age 86-CHF Hypertension Arthritis Diverticulitis of colon Depression CAD (coronary artery disease) Sister Hypertension Depression CVA (cerebral vascular accident) Fibrocystic disease of breast Diabetes Bleeding disorder Portal hypertension Surgical History (Updated 03/22/24 @ 17:[address] Malvin Alfonso MD) Status post right mastectomy History of cardiac catheterization Hx of cystoscopy Hx of total thyroidectomy History of tonsillectomy History of carpal tunnel release History of cardiac radiofrequency ablation History of total abdominal hysterectomy and bilateral salpingo-oophorectomy History of below-knee amputation S/P cystoscopy with ureteral stent placement History of right below knee amputation History of hand surgery H/O cardiac radiofrequency ablation (02/15/13) History of right and left heart catheterization (07/03/17) H/O colonoscopy H/O abdominal hysterectomy H/O carpal tunnel repair Previous section History of tonsillectomy Hx of cholecystectomy Surgical menopause Social History Smoking Status: Never smoker second hand exposure: No alcohol intake: never substance use type: does not use caffeine: No Vital Signs Vital Signs Vital Signs: 03/22/24 15:39 Temperature 97.8 F Temperature Source Temporal Pulse Rate 78 Respiratory Rate 18 Blood Pressure 165/45 H Blood Pressure Mean 85 Blood Pressure Source Monitor Blood Pressure Position Semi-Fowlers Blood Pressure Location Left Arm Weight Weight: 335 lb Body Mass Index (BMI) 54.1 Physical Exam Const alert, oriented x3, no apparent distress and well nourished Constitutional Narrative: The patient is morbidly obese. General Appearance: cooperative, comfortable, well kempt and well developed Orientation / Consciousness: awake, oriented to person, oriented to place and oriented to time Exam Limitations: no limitations Nutritional Appearance: overweight HEENT normocephalic, head/scalp atraumatic and hearing grossly normal bilaterally Head and Scalp: normal to inspection, normocephalic and atraumatic Face and Sinus: normal facial exam Nose: external nose normal External Ear: external ears normal Eyes PERRL and EOMs intact bilaterally General Eye: normal appearance of both eyes Neck full ROM Resp normal respiratory effort, normal air movement, no retractions and no use of accessory muscles Effort and Inspection: able to speak in complete sentences Extremity no calf tenderness General Extremity: Negative for clubbing or cyanosis Skin Wound Narrative: A right below-knee amputation is noted. The dehiscent wound on the right BKA in cision persists, though it continues to decrease in size significantly. Dimensions are documented elsewhere. The wound is pink and healthy in appearance, with active granulation tissue evident. There is a small amount of bioburden. The wound continues to diminish in size by means of peripheral epithelialization. There is no sign of infection or cellulitis. Neuro oriented x3, CN's II-XII intact bilaterally, moves all extremities, no focal motor deficits and no sensory deficits noted Sensorium / Orientation: awake, alert, oriented to person, oriented to place and oriented to time Psych Appearance: grossly normal and appropriate Attitude: calm Activity / Motor Behavior: appropriate eye contact Speech: normal speech Mood & Affect: euthymic mood Thought Process: normal thought process Thought Content: normal thought content Attention / Concentration: attention grossly intact Debridement Note Debridement Note Wound debrided: Dehiscent right below-knee amputation stump incision Laterality: Right Type of Debridement: Excisional debridement Anesthesia Used: 5% Lidocaine Gel Depth: Down to and including healthy tissue and in the subcutaneous layer Percentage of wound debrided: 100 Instrument Used: 5mm curette Tissue Removed: Non viable tissue and slough; bioburden Severity: Fat Layer Exposed Amount of bleeding with debridement: Mild Bleeding Controlled with: Compression and gauze Patient tolerated procedure: Patient tolerated procedure well Debridement Free Text: An excisional debridement was performed, and was tolerated well by the patient. A 3 cm? TheraSkin fenestrated allograft was selected for application today. This represents the 6th such allograft application. The allograft was removed from its sterile packaging and was prep ared in the appropriate fashion. It was then placed in the appropriate orientation topically on the patient's dehiscent wound. The size of the allograft was appropriate, matching the size of the open wound without access. 100% of the allograft was utilized. Once in place, the allograft was secured at the periphery using Dermabond. Adaptic Touch was then placed, and secured using Steri-Strips. The patient tolerated the procedure well. The allograft and its associated dressing was covered with a padded gauze dressing, and is to be left undisturbed until the patient's return visit in 1 week. Post-Debridement Measurements and Additional Note: Post-Debridement Measurements/Treatment WC - Nurse 1 - General Ulcer Assessment Start: 02/26/24 12:00 Freq: Status: Active Protocol: MATT Activity Type Activity Date Activity User E-sign Co-sign Detail Recorded Client Recorded Date Recorded By Document 02/26/24 12:00 RB wound 02/26/24 12:02 RB Document 03/01/24 15:53 KW kl 03/01/24 16:06 KW Document 03/04/24 09:02 DL [id number] 03/04/24 09:22 DL Document 03/08/24 12:56 KW gfj 03/08/24 13:11 KW Document 03/11/24 13:35 KW ljk 03/11/24 13:36 KW Document 03/14/24 11:26 DL [id number] 03/14/24 11:40 DL Document 03/22/24 15:39 RB [id number] 03/22/24 15:41 RB 02/26/24 03/01/24 03/04/24 12:00 15:53 09:02 - Today's Visit Information Type of service Nurse-only Follow-up Visit Nurse-only Visit (Physician/[employer]ED [employer]ER Visit ) Arrival Mode Wheelchair Wheelchair Wheelchair Transfer Assistance None Accompanied by Patient Identification Verified (Name & Yes Yes Yes ) Patient Requires Transmission-Based No Precautions Height and Weight Body Mass Index (BMI) 54.1 54.1 54.1 BMI Classification Obese Obese Obese Vital Signs Temperature (97.8 F-99.1 F) 97.4 F L 98.6 F 97.6 F L Temperature Source Temporal Temporal Temporal Pulse Rate (60-100) 97 73 80 Pulse Location Monitor Monitor Monitor Respiratory Rate (12-18) 18 18 18 Respiratory rate source Observation Observation Observation Oxygen Delivery Method Room Air Room Air Blood Pressure (90/60-120/80) 146/71 H 136/37 H 126/61 H Blood Pressure Mean 96 70 82 Source Monitor Monitor Monitor Position Semi-Fowlers Semi-Fowlers Semi-Fowlers Blood Pressure Location Left Arm Left Forearm Left Arm History Since Last Visit- (Skip if this is Patient's initial visit) Have you changed medications since your No No last visit? Any new allergies or adverse reactions No No Had a fall/change in ADL's that may No No increase risk of falls Signs or symptoms of abuse and/or No No neglect since last visit Have you been in the hospital since your No No last visit? Has dressing in place as prescribed Yes Yes Has compression in place as prescribed N/A Yes Has offloadiing in place as prescribed N/A N/A Experienced any changes in pain level or No No management Left Footwear Regular Shoe Regular Shoe Right Footwear No Footwear No Footwear Pain Scale: 0-10 Numeric Is Patient Pain Free? Yes Yes Yes 03/08/24 03/11/24 03/14/24 12:56 13:35 11:26 WC - Today's Visit Information Type of service Nurse-only Nurse-only Follow-up Visit Visit Visit (Physician/SED [employer]ER ) Arrival Mode Wheelchair Wheelchair Ambulatory, Wheelchair Transfer Assistance None Accompanied by Patient Identification Verified (Name & Yes Yes Yes ) Patient Requires Transmission-Based No Precautions Height and Weight Body Mass Index (BMI) 54.1 54.1 54.1 BMI Classification Obese Obese Obese Vital Signs Temperature (97.8 F-99.1 F) 98.6 F 97.6 F L Temperature Source Temporal Temporal Pulse Rate (60-100) 107 H 85 Pulse Location Monitor Monitor Respiratory Rate (12-18) 18 18 20 H Respiratory rate source Observation Observation Observation Oxygen Delivery Method Room Air Room Air Blood Pressure (90/60-120/80) 165/73 H 156/52 H Blood Pressure Mean 103 86 Source Monitor Monitor Position Sitting Blood Pressure Location Left Arm History Since Last Visit- (Skip if this is Patient's initial visit) Have you changed medications since your No No No last visit? Any new allergies or adverse reactions No No No Had a fall/change in ADL's that may No No No increase risk of falls Signs or symptoms of abuse and/or No No No neglect since last visit Have you been in the hospital since your No No No last visit? Has dressing in place as prescribed Yes Yes Yes Has compression in place as prescribed Yes Yes Yes Has offloadiing in place as prescribed Yes N/A Yes Experienced any changes in pain level or No No No management Left Footwear Regular Shoe Right Footwear No Footwear Pain Scale: 0-10 Numeric Is Patient Pain Free? Yes Yes Yes 03/22/24 15:39 WC - Today's Visit Information Type of service Follow-up Visit (Physician/SED [employer]ER ) Arrival Mode Ambulatory, Walker Transfer Assistance None Accompanied by Patient Identification Verified (Name & Yes ) Patient Requires Transmission-Based Precautions Height and Weight Body Mass Index (BMI) 54.1 BMI Classification Obese Vital Signs Temperature (97.8 F-99.1 F) 97.8 F Temperature Source Temporal Pulse Rate (60-100) 78 Pulse Location Monitor Respiratory Rate (12-18) 18 Respiratory rate source Observation Oxygen Delivery Method Blood Pressure (90/60-120/80) 165/45 H Blood Pressure Mean 85 Source Monitor Position Semi-Fowlers Blood Pressure Location Left Arm History Since Last Visit- (Skip if this is Patient's initial visit) Have you changed medications since your No last visit? Any new allergies or adverse reactions No Had a fall/change in ADL's that may No increase risk of falls Signs or symptoms of abuse and/or No neglect since last visit Have you been in the hospital since your No last visit? Has dressing in place as prescribed Yes Has compression in place as prescribed No Has offloadiing in place as prescribed No Experienced any changes in pain level or No management Left Footwear Right Footwear Pain Scale: 0-10 Numeric Is Patient Pain Free? Yes - Nurse 1 - General Ulcer Measurement Start: 02/26/24 12:00 Freq: Status: Active Protocol: Activity Type Activity Date Activity User E-sign Co-sign Detail Recorded Client Recorded Date Recorded By Document 02/26/24 12:00 RB wound 02/26/24 12:02 RB Document 03/01/24 15:53 KW kl 03/01/24 16:06 KW Document 03/04/24 09:02 DL [email or web address] 03/04/24 09:22 DL Document 03/14/24 11:26 DL [id number] 03/14/24 11:40 DL Document 03/22/24 15:39 RB [id number] 03/22/24 15:41 RB 02/26/24 03/01/24 03/04/24 12:00 15:53 09:02 Wound Center Nurse 1 #1 RT superior stump -Combined with other wound -Current Size (cm) - Length 1.4 -Current Size (cm) - Width 1.2 -Current Size (cm) - Depth 0.1 -Total Square Cm 1.68 -Date of Last Picture (Recall this 03/01/24 field) -Photo Taken -Epithelialization Small 1-33% -Tunneling -Undermining/Tunneling -Circular Undermining -Exudate Amt Small -Exudate Type Serosanguineous -Wound Margin Distinct, Distinct, Outline Outline Attached Attached -Granulation Amt Large (67-100%) -Granulation Quality Hyper- granulation,Red -Slough/Fibrin -Necrosis Amt -Necrotic Tissue Type -Structure Exposed -Texture (Fadumo-wound Skin Appearance) Assessed -Moisture (Fadumo-wound Skin Appearance) Assessed -Color (Fadumo-wound Skin Appearance) Assessed -Temperature (Fadumo-wound Skin No Abnormality No Abnormality Appearance) (Pt Warm) (Pt Warm) -Tenderness on Palpation (Fadumo-wound No No Skin Appearance) -Ulcer Cleansing Soap and Water -Foul Odor after Cleansing No -Anesthetic Used 5% Lidocaine Gel -Wound Comment(s) theraskin and Theraskin veil left in intact, Vac place new removed and new steristrips applied,new applied steri stirps applied. 03/14/24 03/22/24 11:26 15:39 Wound Center Nurse 1 #1 RT superior stump -Combined with other wound No -Current Size (cm) - Length 1 1.7 -Current Size (cm) - Width 2 1.5 -Current Size (cm) - Depth 0.1 0.1 -Total Square Cm 2 2.55 -Date of Last Picture (Recall this field) -Photo Taken Yes Yes -Epithelialization -Tunneling No -Undermining/Tunneling No -Circular Undermining No -Exudate Amt Small Medium -Exudate Type Serosanguineous Serosanguineous -Wound Margin Distinct, Distinct, Outline Outline Attached Attached -Granulation Amt Large (67-100%) Medium (34-66%) -Granulation Quality Red [place] -Slough/Fibrin Yes Yes -Necrosis Amt None Present (0 Medium (34-66%) %) -Necrotic Tissue Type Adherent Slough -Structure Exposed N/A N/A -Texture (Fadumo-wound Skin Appearance) Scarring Assessed, Scarring -Moisture (Fadumo-wound Skin Appearance) No Abnormality Assessed -Color (Fadumo-wound Skin Appearance) Assessed -Temperature (Fadumo-wound Skin No Abnormality No Abnormality Appearance) (Pt Warm) (Pt Warm) -Tenderness on Palpation (Fadumo-wound No No Skin Appearance) -Ulcer Cleansing Soap and Water Wound Cleanser -Foul Odor after Cleansing No No -Anesthetic Used 5% Lidocaine 5% Lidocaine Gel Gel -Wound Comment(s) WC - Nurse 2 - General Ulcer CM Notes Start: 02/26/24 12:00 Freq: Status: Active Protocol: Activity Type Activity Date Activity User E-sign Co-sign Detail Recorded Client Recorded Date Recorded By Document 03/01/24 16:23 DS 1 03/01/24 16:27 DS Document 03/14/24 12:04 [id number] 03/14/24 12:08 Document 03/22/24 15:47 DS [id number] 03/22/24 16:05 DS 03/01/24 03/14/24 03/22/24 16:23 12:04 15:47 Wound Center Nurse 2 #1 RT superior stump -Time 16:23 12:05 15:48 -Correct Patient Yes Yes Yes -Correct Side, Site, Position Yes Yes Yes -Correct Procedure Yes Yes Yes -Procedure Performed Yes Yes Yes -Type of Procedure Debridement Debridement Debridement -Clinical Debridement Subcutaneous Subcutaneous Subcutaneous -Tissue Removed Subcutaneous Subcutaneous Subcutaneous -Post Debridement (cm) - Length 1.4 2.0 1.5 -Post Debridement (cm) - Width 1.8 1.0 2.0 -Post Debridement (cm) - Depth 0.1 0.1 0.2 -Total Square (Post) (cm) 2.52 2.00 3.00 -Area of Debridement (cm) - Length 1.4 2.0 1.5 -Area of Debridement (cm) - Width 1.8 1.0 2.0 -Total Square (Area) (cm) 2.52 2.00 3.00 -Tunneling No No No -Undermining/Tunneling No No No -Circular Undermining No No No -Wound/Ulcer Outcome Not Healed Not Healed Not Healed -Ulcer Cleansing Rinsed/ Irrigated with Saline -Foul Odor after Cleansing No -Bioengineered Tissue Yes Yes Yes -Type of Bioengineered Tissue Theraskin Theraskin Theraskin -Expiration Date 10/14/28 06/06/28 06/06/28 -Product Lot Number [id number] -Percent Used 100 100 100 -Lot number of Saline Used [id number] -Bleeding Controlled with Pressure Pressure Pressure -Treatment Response Procedure Procedure Procedure Tolerated Well Tolerated Well Tolerated Well -Offloading No -Debridement - Subq, 1st 20sq cm No No No -Apply Skin Sub - 1st 25 sq cm - Legs 1 1 1 -Theraskin - 3TS (3 SQ CM) (per sq cm) 3 3 3 Pain Scale: 0-10 Numeric Is Patient Pain Free? Yes Yes Yes WC - Nurse 3 - General Ulcer D/C NN Start: 02/26/24 12:00 Freq: Status: Active Protocol: Activity Type Activity Date Activity User E-sign Co-sign Detail Recorded Client Recorded Date Recorded By Document 02/26/24 12:00 RB wound 02/26/24 12:02 RB Document 03/01/24 16:49 RB [email or web address] 03/01/24 16:50 RB Document 03/04/24 09:02 DL 10.10.25.7 03/04/24 09:22 DL Document 03/08/24 12:56 KW gfj 03/08/24 13:11 KW Document 03/11/24 13:35 KW ljk 03/11/24 13:36 KW Document 03/22/24 16:09 KW [id number] 03/22/24 16:10 KW Document 03/22/24 16:11 KW [id number] 03/22/24 16:12 KW 02/26/24 03/01/24 03/04/24 12:00 16:49 09:02 Vital Signs Temperature (97.8 F-99.1 F) 97.4 F L 97.6 F L Temperature Source Temporal Temporal Pulse Rate (60-100) 97 80 Pulse Location Monitor Monitor Respiratory Rate (12-18) 18 18 Respiratory rate source Observation Observation Oxygen Delivery Method Room Air Blood Pressure (90/60-120/80) 146/71 H 126/61 H Blood Pressure Mean 96 82 Source Monitor Monitor Position Semi-Fowlers Semi-Fowlers Blood Pressure Location Left Arm Left Arm Pain Scale: 0-10 Numeric Is Patient Pain Free? Yes Yes Yes Wound Care Center Nurse 3 #1 RT superior stump -Ulcer Cleansing Wound Cleanser Soap and Water -Foul Odor after Cleansing No -Negative Pressure Wound Therapy Continue Continue Continue -Setting (mmHg) 125 125 125 -Negative Pressure is Continuous Continuous Continuous -Other Dressing -Primary Dressing Covered/Secured with -NPWT Application Charge NPWT </= 50 sq NPWT </= 50 sq NPWT </= 50 sq cm ($) cm ($) cm ($) Right -Compression Wrap Jozef Wrap -Other jozef jozef Treatment Response Procedure Procedure Tolerated Well Tolerated Well WC - Visit Discharge Discharge Condition Stable Stable Stable Ambulatory Status Wheelchair Ambulatory Wheelchair Transportation Private Auto Private Auto Private Auto Accompanied by Medication Reconcilliation completed & No No No provided to patient/care provider Clinical Summary of Care Provided Yes Yes Yes Facility Type Home Health Orders Sent Yes 03/08/24 03/11/24 03/22/24 12:56 13:35 16:09 Vital Signs Temperature (97.8 F-99.1 F) 98.6 F Temperature Source Temporal Pulse Rate (60-100) 107 H Pulse Location Monitor Respiratory Rate (12-18) 18 18 Respiratory rate source Observation Observation Oxygen Delivery Method Room Air Room Air Blood Pressure (90/60-120/80) 165/73 H Blood Pressure Mean 103 Source Monitor Position Sitting Blood Pressure Location Left Arm Pain Scale: 0-10 Numeric Is Patient Pain Free? Yes Yes Yes [facility] Nurse 3 #1 RT superior stump -Ulcer Cleansing Soap and Water Soap and Water -Foul Odor after Cleansing -Negative Pressure Wound Therapy Continue Continue -Setting (mmHg) 125 125 -Negative Pressure is Continuous Continuous -Other Dressing ABD/kerlix -Primary Dressing Covered/Secured with Dry Gauze, Secured with Tape -NPWT Application Charge NPWT </= 50 sq NPWT </= 50 sq cm ($) cm ($) Right -Compression Wrap Jozef Wrap Jozef Wrap -Other jozef Treatment Response Procedure Tolerated Well WC - Visit Discharge Discharge Condition Stable Stable Stable Ambulatory Status Wheelchair Wheelchair Wheelchair Transportation Private Auto Private Auto Private Auto Accompanied by Medication Reconcilliation completed & No No provided to patient/care provider Clinical Summary of Care Provided Yes Yes Facility Type Orders Sent 03/22/24 16:11 Vital Signs Temperature (97.8 F-99.1 F) Temperature Source Pulse Rate (60-100) Pulse Location Respiratory Rate (12-18) Respiratory rate source Oxygen Delivery Method Blood Pressure (90/60-120/80) Blood Pressure Mean Source Position Blood Pressure Location Pain Scale: 0-10 Numeric Is Patient Pain Free? Yes [facility] Nurse 3 #1 RT superior stump -Ulcer Cleansing -Foul Odor after Cleansing -Negative Pressure Wound Therapy -Setting (mmHg) -Negative Pressure is -Other Dressing -Primary Dressing Covered/Secured with Dry Gauze & Roll Gauze, Secured with Tape -NPWT Application Charge Right -Compression Wrap Jozef Wrap -Other Treatment Response WC - Visit Discharge Discharge Condition Stable Ambulatory Status Wheelchair Transportation Private Auto Accompanied by Medication Reconcilliation completed & No provided to patient/care provider Clinical Summary of Care Provided Yes Facility Type Orders Sent Charges/Coding Procedures Integumentary [id number]-[id number]: [id number] Skin sub graft trnk/arm/leg Assessment/Plan Assessment/Plan (1) Non-pressure chronic ulcer of right calf with fat layer exposed: CODE(S): L97.212 - Non-pressure chronic ulcer of right calf with fat layer exposed (2) Surgical wound dehiscence: CODE(S): T81.31XA - Disruption of external operation (surgical) wound, not elsewhere classified, initial encounter QUALIFIERS: Encounter type: subsequent encounter Qualified Code(s): T81.31XD - Disruption of external operation (surgical) wound, not elsewhere classified, subsequent encounter (3) History of right below knee amputation: CODE(S): Z89.511 - Acquired absence of right leg below knee (4) Morbid obesity with BMI of 50.0-59.9, adult: CODE(S): E66.01 - Morbid (severe) obesity due to excess calories; Z68.43 - Body mass index [BMI] 50.0-59.9, adult (5) Diabetes mellitus, type 2: CODE(S): E11.9 - Type 2 diabetes mellitus without complications QUALIFIERS: Diabetes mellitus detention insulin use: with detention use Diabetes mellitus complication status: with kidney complications Diabetes mellitus complication detail: with chronic kidney disease Chronic kidney disease stage: stage 3 (moderate) Chronic kidney disease stage 3 subtype: stage 3a (GFR 45-59) Qualified Code(s): E11.22 - Type 2 diabetes mellitus with diabetic chronic kidney disease; N18.31 - Chronic kidney disease, stage 3a; Z79.4 - [facility] (current) use of insulin (6) Below knee amputation: CODE(S): S88.119A - 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, unspecified lower leg, initial encounter QUALIFIERS: Encounter type: sequela Laterality: bilateral Qualified Code(s): S88.111S - 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, right lower leg, sequela; S88.112S - 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, left lower leg, sequela (7) Hypothyroid: CODE(S): E03.9 - Hypothyroidism, unspecified QUALIFIERS: Hypothyroidism type: acquired Qualified Code(s): E03.9 - Hypothyroidism, unspecified (8) Benign essential HTN: CODE(S): I10 - Essential (primary) hypertension (9) Breast cancer in female: CODE(S): C50.919 - Malignant neoplasm of unspecified site of unspecified female breast QUALIFIERS: Breast location: unspecified site of breast Estrogen receptor status: positive Laterality: right Qualified Code(s): C50.911 - Malignant neoplasm of unspecified site of right female breast; Z17.0 - Estrogen receptor positive status [ER+] (10) Physical debility: CODE(S): R53.81 - Other malaise (11) Right leg swelling: CODE(S): M79.89 - Other specified soft tissue disorders (12) Hyperlipidemia: CODE(S): E78.5 - Hyperlipidemia, unspecified (13) GERD (gastroesophageal reflux disease): CODE(S): K21.9 - Gastro-esophageal reflux disease without esophagitis (14) History of below-knee amputation: CODE(S): Z89.519 - Acquired absence of unspecified leg below knee QUALIFIERS: Laterality: right Qualified Code(s): Z89.511 - Acquired absence of right leg below knee (15) History of total abdominal hysterectomy and bilateral salpingo- oophorectomy: CODE(S): Z90.710 - Acquired absence of both cervix and uterus; Z90.722 - Acquired absence of ovaries, bilateral; Z90.79 - Acquired absence of other genital organ(s) (16) History of cardiac radiofrequency ablation: CODE(S): Z98.890 - Other specified postprocedural states (17) History of carpal tunnel release: CODE(S): Z98.890 - Other specified postprocedural states (18) Hx of cholecystectomy: CODE(S): Z98.890 - Other specified postprocedural states; Z90.49 - Acquired absence of other specified parts of digestive tract (19) History of tonsillectomy: CODE(S): Z90.89 - Acquired absence of other organs (20) BRTIT (obstructive sleep apnea): CODE(S): G47.33 - Obstructive sleep apnea (adult) (pediatric) (21) Diabetic neuropathy: CODE(S): E11.40 - Type 2 diabetes mellitus with diabetic neuropathy, unspecified QUALIFIERS: Diabetes mellitus type: type 2 Diabetes mellitus complication detail: diabetic polyneuropathy Qualified Code(s): E11.42 - Type 2 diabetes mellitus with diabetic polyneuropathy (22) Rheumatoid arthritis: CODE(S): M06.9 - Rheumatoid arthritis, unspecified (23) Pulmonary hypertension: CODE(S): I27.20 - Pulmonary hypertension, unspecified PLAN: Plan This is a 63-year-old female with multiple pre-existing medical problems, who presented with a 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 The right below-knee amputation was performed on October 19, 2023, at [facility]. Upon removal of her surgical luisana several weeks postoperatively, she developed a surgical wound dehiscence and was referred to the [facility] for definitive management. Measures have been implemented to minimize swelling in her right lower extremity, and have included leg elevation and sleeping on a flat mattress at night. As of today, the patient's dehiscent wound continues to decrease in size. A TheraSkin allograft has been applied today topically, and is to be left in place undisturbed until her follow-up visit in 1 week. Today's TheraSkin application represents the sixth such placement of an allograft. Allograft application had been coupled with negative pressure wound therapy until recently, but we are to continue the wound VAC holiday for at least 1 more week. The patient appears to be doing well. Patient has been encouraged to optimize her nutritional intake and assure good control of her diabetes mellitus. She indicates that she continues to take a nutritional supplement on a regular basis. The patient has also undergone right mastectomy with sentinel lymph node biopsy by Dr. Knapp on March 15, 2024. The patient appears to be recovering uneventfully from her recent surgery, though still has 1 of 2 [place] dra[address] remaining in place, anticipated to be removed in the coming days. The patient is to return in 1 week for reassessment. Total time: 45 minutes
== END 2024-03-26 23:59 | disposition home or self-care (01) ==
LOC: WC 15:30
PROVIDERS: PCP Nurse Practitioner Family; Referring Provider Nurse Practitioner Family; Visit Provider Surgery
DX: E11.622 Type 2 diabetes mellitus with other skin ulcer (principal); L97.212 Non-pressure chronic ulcer of right calf with fat layer exposed; M06.9 Rheumatoid arthritis, unspecified; Z89.511 Acquired absence of right leg below knee; I27.20 Pulmonary hypertension, unspecified; C50.911 Malignant neoplasm of unspecified site of right female breast; Z68.43 Body mass index [BMI] 50.0-59.9, adult; E66.01 Morbid (severe) obesity due to excess calories; E11.22 Type 2 diabetes mellitus with diabetic chronic kidney disease; E11.42 Type 2 diabetes mellitus with diabetic polyneuropathy; Z79.4 Long term (current) use of insulin; E11.610 Type 2 diabetes mellitus with diabetic neuropathic arthropathy; N18.31 Chronic kidney disease, stage 3a; G47.33 Obstructive sleep apnea (adult) (pediatric); K57.90 Diverticulosis of intestine, part unspecified, without perforation or abscess without bleeding; Z17.0 Estrogen receptor positive status [ER+]; Z90.710 Acquired absence of both cervix and uterus; I12.9 Hypertensive chronic kidney disease with stage 1 through stage 4 chronic kidney disease, or unspecified chronic kidney disease; K21.9 Gastro-esophageal reflux disease without esophagitis; B35.6 Tinea cruris; Z90.722 Acquired absence of ovaries, bilateral; Z79.811 Long term (current) use of aromatase inhibitors; Z82.3 Family history of stroke; T81.31XD Disruption of external operation (surgical) wound, not elsewhere classified, subsequent encounter; Z80.41 Family history of malignant neoplasm of ovary; E78.5 Hyperlipidemia, unspecified; Z87.442 Personal history of urinary calculi; R53.81 Other malaise; Z86.79 Personal history of other diseases of the circulatory system; Z85.42 Personal history of malignant neoplasm of other parts of uterus; Z90.49 Acquired absence of other specified parts of digestive tract; M79.89 Other specified soft tissue disorders; S88.11 Complete traumatic amputation at level between knee and ankle; S88.112S Complete traumatic amputation at level between knee and ankle, left lower leg, sequela; E03.9 Hypothyroidism, unspecified
CPT/HCPCS: 15271; 97605; 99212; Q4121; G0463

== ENCOUNTER 2024-04-12 15:15 | Outpatient (RCR) | payer OTHER, SELFPAY ==
[2024-03-27 00:27] VITALS: BP 106/40; PULSE 74; RESP 18; TEMP 35.9; BMI 54.1
[2024-03-29 15:07] VITALS: BP 146/53; PULSE 75; RESP 18; TEMP 35.7; BMI 54.1
--- NOTE | 2024-03-29 16:11 | PCM.WC.HP ---
History of Present Illness Date of Service: 03/29/24 Chief Complaint: Surgical wound dehiscence of the right below-knee amputation stump incision History of Wound: This is a 63-year-old morbidly obese female with multiple pre-existing medical conditions. She is a longstanding diabetic and has been poorly controlled. She suffers from diabetic peripheral neuropathy. She developed a right Charcot foot deformity, with collapse of her right arch. Her condition resulted in a right below-knee amputation which was [place] [facility]. Narayan on October 19, 2023. The patient had a relatively uncomplicated postoperative course. She was transferred to the [facility] rehabilitation unit, where she continued to convalesce for several weeks. Several weeks postoperatively, Dr. Damon's staff removed the patient's surgical luisana, and the patient subsequently developed a dehiscence. She was referred to the [facility] for management of her right below-knee amputation stump incisional dehiscence. The patient had been using Neosporin and gauze topically. She had also been using a Coban wrap and has been fitted with a stump parts and service manager by [employer]. The patient's multiple pre-existing medical conditions are listed elsewhere. Of note, she underwent right breast needle biopsy on November 26, 2023, which was indicative of invasive ductal carcinoma. She is under the care of other providers for management of this recent diagnosis, including her surgeon, Dr. Knapp. Laboratory results have been obtained dated December 03, 2023, with results as follows: Sodium 139, potassium 4.0, chloride 106, BUN 21, creatinine 1.21, glucose 120, calcium 9.1, total bilirubin 0.60, AST 23, ALT 29, alkaline phosphatase 103, total protein 7.1, albumin 3.7. [facility] Medical History Invasive ductal carcinoma of right breast in female GERD (gastroesophageal reflux disease) Hyperlipidemia Tinea cruris Non-pressure chronic ulcer of right calf with fat layer exposed Wears glasses Post-menopausal Cancer Anxiety Open wound Thyroid disease Insulin dependent diabetes mellitus Uses wheelchair Fatty liver High cholesterol Dietary restriction Non-smoker History of edema History of echocardiogram History of stress test Cardiology follow-up encounter Surgical wound dehiscence Right leg swelling History of endometrial cancer Rheumatoid arthritis Diverticulosis Chronic renal failure, stage 3 (moderate) Pulmonary hypertension GERD (gastroesophageal reflux disease) Hyperlipidemia History of kidney stones Breast cancer in female Morbid obesity with BMI of 50.0-59.9, adult Hydronephrosis Ureteral calculus Charcot ankle Diabetic neuropathy Morbid obesity with BMI of 50.0-59.9, adult Diverticulosis Diabetes mellitus, type 2 Chronic renal failure (CRF), stage 3a Anemia Rheumatoid arthritis Chronic pain CPAP (continuous positive airway pressure) dependence Pulmonary hypertension BRITT (obstructive sleep apnea) Thyromegaly Hx of supraventricular tachycardia Nephrolithiasis Rosacea Fatty liver External hemorrhoid GERD without esophagitis Benign essential HTN Bilateral carpal tunnel syndrome Hyperlipidemia Low vitamin B12 level Multinodular goiter Tubular adenoma Adenocarcinoma of endometrium Home Medications ?Medication ?Instructions ?Recorded ?Last Taken ?Type aspirin 81 mg tablet,delayed 81 mg PO DAILY Heart health 01/11/16 03/06/24 History release cetirizine 10 mg capsule 10 mg PO DAILY Allergies 01/11/16 03/15/24 History metoprolol succinate 100 mg 100 mg PO DAILY BP 01/11/16 03/15/24 History tablet,extended release 24 hr multivitamin 1 ea PO DAILY Supplement 01/11/16 03/14/24 History omeprazole 40 mg capsule,delayed 40 mg PO DAILY GERD 01/11/16 03/15/24 History release simvastatin 20 mg tablet 20 mg PO QHS Cholestrol 01/11/16 03/14/24 History cyanocobalamin (vitamin B-12) 1,000 mcg PO DAILY Supplement 07/02/17 03/14/24 History 1,000 mcg sublingual tablet hydroxychloroquine 200 mg tablet 200 mg PO BID Platelets 04/28/18 03/14/24 History (Plaquenil) pregabalin 150 mg capsule (Lyrica) 150 mg PO QHS NERVE PAIN 06/14/18 03/15/24 History ferrous sulfate 325 mg (65 mg 325 mg PO DAILY supplement 04/25/20 03/14/24 History iron) tablet (Feosol) allopurinol 100 mg tablet 100 mg PO DAILY #30 tabs 11/18/23 03/14/24 Rx ascorbic acid (vitamin C) 500 mg 1,000 mg (2 x 500 mg) PO DAILY #30 11/18/23 03/14/24 Rx tablet tabs calcium carbonate (Oyster Shell 500 mg PO BREAKFAST #30 tabs 11/18/23 03/14/24 Rx Calcium 500) blood sugar diagnostic (OneTouch #100 ea 12/03/23 Unknown Rx Ultra Test strips) blood-glucose sensor (Dexcom G6 #9 ea 12/03/23 Unknown Rx Sensor device) blood-glucose transmitter (Dexcom #1 ea 12/03/23 Unknown Rx G6 Transmitter device) losartan 50 mg tablet (Cozaar) 50 mg PO DAILY #90 tabs 12/03/23 03/15/24 Rx OneTouch Delica Plus Lancet 33 #100 ea 12/04/23 Unknown Rx gauge (lancets) blood sugar diagnostic (OneTouch #100 ea 12/04/23 Unknown Rx Ultra Test strips) buspirone 5 mg tablet 5 mg PO TID #90 tabs 12/11/23 03/15/24 Rx alprazolam 0.5 mg tablet (Xanax) 0.5 mg PO TID PRN PRN panic attack 12/25/23 12/07/23 History fiber 1 cap PO DAILY 12/25/23 03/14/24 History oxycodone 5 mg capsule 5 mg PO Q6H PRN PRN pain 12/25/23 12/21/23 History anastrozole 1 mg tablet (Arimidex) 1 mg PO DAILY #90 tabs 02/24/24 03/15/24 Rx escitalopram oxalate 10 mg tablet 10 mg PO DAILY 03/03/24 03/14/24 History insulin regular hum U-500 conc 500 15 unit subcut LUNCH 03/04/24 03/14/24 History unit/mL(3 mL) subcut pen insulin regular hum U-500 conc 500 35 unit subcut DINNER 03/04/24 03/14/24 History unit/mL(3 mL) subcut pen insulin regular hum U-500 conc 500 35 unit subcut QHS 03/04/24 03/14/24 History unit/mL(3 mL) subcut pen insulin regular hum U-500 conc 500 175 unit subcut BREAKFAST Blood 03/04/24 03/15/24 History unit/mL(3 mL) subcut pen sugar levothyroxine 300 mcg tablet 300 mcg PO DAILY 03/04/24 03/15/24 History levothyroxine 300 mcg tablet 600 mcg PO GALARZA 03/04/24 03/13/24 History semaglutide 2 mg/dose (8 mg/3 mL) 1 mg subcut TH 03/04/24 02/25/24 History subcutaneous pen injector (Ozempic) insulin lispro 100 unit/mL 3 unit subcut TID PRN BLOOD SUGARS 03/15/24 Unknown History subcutaneous pen insulin lispro 100 unit/mL See Protocol subcut DAILY PRN 03/15/24 03/13/24 History subcutaneous pen elevated BS pregabalin 100 mg capsule (Lyrica) 100 mg PO BID NERVE PAIN 03/15/24 03/15/24 History acetaminophen 325 mg tablet 650 mg (2 x 325 mg) PO Q6H PRN PRN 03/16/24 Unknown Rx Pain Score 1-10 #0 tabs doxycycline hyclate 100 mg capsule 100 mg PO BID #10 caps 03/24/24 Unknown Rx Allergy/AdvReac Type Severity Reaction Status Date / Time No Known Allergies Allergy Verified 03/18/24 12:48 Family History Mother Ovarian cancer Hypertension Arthritis Uterine cancer Fibrocystic disease of breast Hypothyroid Father , Age 86-CHF Hypertension Arthritis Diverticulitis of colon Depression CAD (coronary artery disease) Sister Hypertension Depression CVA (cerebral vascular accident) Fibrocystic disease of breast Diabetes Bleeding disorder Portal hypertension Surgical History Status post right mastectomy History of cardiac catheterization Hx of cystoscopy Hx of total thyroidectomy History of tonsillectomy History of carpal tunnel release History of cardiac radiofrequency ablation History of total abdominal hysterectomy and bilateral salpingo-oophorectomy History of below-knee amputation S/P cystoscopy with ureteral stent placement History of right below knee amputation History of hand surgery H/O cardiac radiofrequency ablation (02/15/13) History of right and left heart catheterization (07/03/17) H/O colonoscopy H/O abdominal hysterectomy H/O carpal tunnel repair Previous section History of tonsillectomy Hx of cholecystectomy Surgical menopause Social History Smoking Status: Never smoker second hand exposure: No alcohol intake: never substance use type: does not use caffeine: No Vital Signs Vital Signs Vital Signs: 03/29/24 15:07 Temperature 96.3 F L Temperature Source Temporal Pulse Rate 75 Respiratory Rate 18 Blood Pressure 146/53 H Blood Pressure Mean 84 Blood Pressure Source Monitor Blood Pressure Position Semi-Fowlers Blood Pressure Location Right Arm Oxygen Delivery Method Room Air Weight Weight: 335 lb Body Mass Index (BMI) 54.1 Physical Exam Const alert, oriented x3, no apparent distress and well nourished Constitutional Narrative: The patient is morbidly obese. General Appearance: cooperative, comfortable, well kempt and well developed Orientation / Consciousness: awake, oriented to person, oriented to place and oriented to time Exam Limitations: no limitations Nutritional Appearance: overweight HEENT normocephalic, head/scalp atraumatic and hearing grossly normal bilaterally Head and Scalp: normal to inspection, normocephalic and atraumatic Face and Sinus: normal facial exam Nose: external nose normal External Ear: external ears normal Eyes PERRL and EOMs intact bilaterally General Eye: normal appearance of both eyes Neck full ROM Resp normal respiratory effort, normal air movement, no retractions and no use of accessory muscles Effort and Inspection: able to speak in complete sentences Extremity no calf tenderness General Extremity: Negative for clubbing or cyanosis Skin Wound Narrative: A right below-knee amputation is noted. The dehiscent wound on the right BKA incision persists, though it continues to decrease in size significantly. Dimensions are documented elsewhere. The wound is pink and healthy in appearance, with active granulation tissue evident. There is a small amount of bioburden. The wound continues to diminish in size by means of peripheral epithelialization. There is no sign of infection or cellulitis. However, the periwound area demonstrates inflammatory changes and erythema, suggestive of possible contact dermatitis. Neuro oriented x3, CN's II-XII intact bilaterally, moves all extremities, no focal motor deficits and no sensory deficits noted Sensorium / Orientation: awake, alert, oriented to person, oriented to place and oriented to time Psych Appearance: grossly normal and appropriate Attitude: calm Activity / Motor Behavior: appropriate eye contact Speech: normal speech Mood & Affect: euthymic mood Thought Process: normal thought process Thought Content: normal thought content Attention / Concentration: attention grossly intact Debridement Note Debridement Note Wound debrided: Dehiscent right below-knee amputation stump incision Laterality: Right Type of Debridement: Excisional debridement Anesthesia Used: 5% Lidocaine Gel Depth: Down to and including healthy tissue and in the subcutaneous layer Percentage of wound debrided: 100 Instrument Used: 5mm curette Tissue Removed: Non viable tissue and slough; bioburden Severity: Fat Layer Exposed Amount of bleeding with debridement: Mild Bleeding Controlled with: Compression and gauze Patient tolerated procedure: Patient tolerated procedure well Post-Debridement Measurements and Additional Note: Post-Debridement Measurements/Treatment - Nurse 1 - General Ulcer Assessment Start: 03/29/24 15:07 Freq: Status: Active Protocol: MATT Activity Type Activity Date Activity User E-sign Co-sign Detail Recorded Client Recorded Date Recorded By Document 03/29/24 15:07 KW [id number] 03/29/24 15:12 03/29/24 15:07 WC - Today's Visit Information Type of service Follow-up Visit (Physician/FIELD MARKETING ASSOCIATE ) Arrival Mode Wheelchair Patient Identification Verified (Name & Yes ) Height and Weight Body Mass Index (BMI) 54.1 BMI Classification Obese Vital Signs Temperature (97.8 F-99.1 F) 96.3 F L Temperature Source Temporal Pulse Rate (60-100) 75 Pulse Location Monitor Respiratory Rate (12-18) 18 Respiratory rate source Observation Oxygen Delivery Method Room Air Blood Pressure (90/60-120/80) 146/53 H Blood Pressure Mean 84 Source Monitor Position Semi-Fowlers Blood Pressure Location Right Arm History Since Last Visit- (Skip if this is Patient's initial visit) Have you changed medications since your No last visit? Any new allergies or adverse reactions No Had a fall/change in ADL's that may No increase risk of falls Signs or symptoms of abuse and/or No neglect since last visit Have you been in the hospital since your No last visit? Has dressing in place as prescribed Yes Has compression in place as prescribed Yes Has offloadiing in place as prescribed N/A Experienced any changes in pain level or No management Left Footwear Regular Shoe Right Footwear Other Footwear (Comment) Pain Scale: 0-10 Numeric Is Patient Pain Free? Yes - Nurse 1 - General Ulcer Measurement Start: 03/29/24 15:07 Freq: Status: Active Protocol: Activity Type Activity Date Activity User E-sign Co-sign Detail Recorded Client Recorded Date Recorded By Document 03/29/24 15:07 KW [id number] 03/29/24 15:12 KW 03/29/24 15:07 Wound Center Nurse 1 #1 RT superior stump -Current Size (cm) - Length 2.4 -Current Size (cm) - Width 1.6 -Current Size (cm) - Depth 0.1 -Total Square Cm 3.84 -Date of Last Picture (Recall this 03/29/24 field) -Exudate Type Serosanguineous -Wound Margin Distinct, Outline Attached -Granulation Amt Large (67-100%) -Granulation Quality Red -Texture (Fadumo-wound Skin Appearance) Assessed, Excoriation -Moisture (Fadumo-wound Skin Appearance) Assessed -Color (Fadumo-wound Skin Appearance) Assessed, Erythema -Temperature (Fadumo-wound Skin No Abnormality Appearance) (Pt Warm) -Tenderness on Palpation (Fadumo-wound No Skin Appearance) -Ulcer Cleansing Soap and Water -Anesthetic Used 5% Lidocaine Gel WC - Nurse 2 - General Ulcer CM Notes Start: 03/29/24 15:07 Freq: Status: Active Protocol: Activity Type Activity Date Activity User E-sign Co-sign Detail Recorded Client Recorded Date Recorded By Document 03/29/24 15:30 AREN [id number] 03/29/24 15:31 AREN 03/29/24 15:30 Wound Center Nurse 2 -Time 15:30 -Correct Patient Yes -Correct Side, Site, Position Yes -Correct Procedure Yes -Procedure Performed Yes -Type of Procedure Debridement -Clinical Debridement Subcutaneous -Tissue Removed Subcutaneous -Post Debridement (cm) - Length 2.5 -Post Debridement (cm) - Width 1.6 -Post Debridement (cm) - Depth 0.1 -Total Square (Post) (cm) 4.00 -Area of Debridement (cm) - Length 2.5 -Area of Debridement (cm) - Width 1.6 -Total Square (Area) (cm) 4.00 -Tunneling No -Undermining/Tunneling No -Circular Undermining No -Wound/Ulcer Outcome Not Healed -Ulcer Cleansing Rinsed/ Irrigated with Saline -Foul Odor after Cleansing No -Bioengineered Tissue No -Bleeding Controlled with Pressure -Treatment Response Procedure Tolerated Well -Offloading No -Debridement - Subq, 1st 20sq cm Yes Pain Scale: 0-10 Numeric Is Patient Pain Free? Yes JIA - Nurse 3 - General Ulcer D/C NN Start: 03/29/24 15:07 Freq: Status: Active Protocol: Activity Type Activity Date Activity User E-sign Co-sign Detail Recorded Client Recorded Date Recorded By Document 03/29/24 15:40 RB [id number] 03/29/24 15:41 RB 03/29/24 15:40 Wound Care Center Nurse 3 #1 RT superior stump -Primary Dressing Applied Promogran Geovanna Matter -Other Dressing ABD/PETER -Primary Dressing Covered/Secured with Dry Gauze & Roll Gauze, Secured with Tape -Promogran Geovanna Matter 1 Right -Other peter Treatment Response Procedure Tolerated Well Pain Scale: 0-10 Numeric Is Patient Pain Free? Yes Teaching: Wound Center Dressing Your Wound -Person Taught Patient,Family -Teaching Method Demonstration -Response to teaching Return Demonstration, Verbalize Understanding WC - Visit Discharge Discharge Condition Stable Ambulatory Status Ambulatory, Wheelchair Transportation Private Auto Medication Reconcilliation completed & No provided to patient/care provider Clinical Summary of Care Provided Yes Notes: London Swain assisted with dressing application Charges/Coding Procedures Integumentary [id number]: [id number] Padmini subq tissue 20 sq cm/< Assessment/Plan Assessment/Plan (1) Non-pressure chronic ulcer of right calf with fat layer exposed: CODE(S): L97.212 - Non-pressure chronic ulcer of right calf with fat layer exposed (2) Surgical wound dehiscence: CODE(S): T81.31XA - Disruption of external operation (surgical) wound, not elsewhere classified, initial encounter QUALIFIERS: Encounter type: subsequent encounter Qualified Code(s): T81.31XD - Disruption of external operation (surgical) wound, not elsewhere classified, subsequent encounter (3) History of right below knee amputation: CODE(S): Z89.511 - Acquired absence of right leg below knee (4) Morbid obesity with BMI of 50.0-59.9, adult: CODE(S): E66.01 - Morbid (severe) obesity due to excess calories; Z68.43 - Body mass index [BMI] 50.0-59.9, adult (5) Diabetes mellitus, type 2: CODE(S): E11.9 - Type 2 diabetes mellitus without complications QUALIFIERS: Diabetes mellitus ad terminal makeup operator insulin use: with ad terminal makeup operator use Diabetes mellitus complication status: with kidney complications Diabetes mellitus complication detail: with chronic kidney disease Chronic kidney disease stage: stage 3 (moderate) Chronic kidney disease stage 3 subtype: stage 3a (GFR 45-59) Qualified Code(s): E11.22 - Type 2 diabetes mellitus with diabetic chronic kidney disease; N18.31 - Chronic kidney disease, stage 3a; Z79.4 - watermelon inspector (current) use of insulin (6) Below knee amputation: CODE(S): S88.119A - 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, unspecified lower leg, initial encounter QUALIFIERS: Encounter type: sequela Laterality: bilateral Qualified Code(s): S88.111S - 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, right lower leg, sequela; S88.112S - 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, left lower leg, sequela (7) Hypothyroid: CODE(S): E03.9 - Hypothyroidism, unspecified QUALIFIERS: Hypothyroidism type: acquired Qualified Code(s): E03.9 - Hypothyroidism, unspecified (8) Benign essential HTN: CODE(S): I10 - Essential (primary) hypertension (9) Breast cancer in female: CODE(S): C50.919 - Malignant neoplasm of unspecified site of unspecified female breast QUALIFIERS: Breast location: unspecified site of breast Estrogen receptor status: positive Laterality: right Qualified Code(s): C50.911 - Malignant neoplasm of unspecified site of right female breast; Z17.0 - Estrogen receptor positive status [ER+] (10) Physical debility: CODE(S): R53.81 - Other malaise (11) Right leg swelling: CODE(S): M79.89 - Other specified soft tissue disorders (12) Hyperlipidemia: CODE(S): E78.5 - Hyperlipidemia, unspecified (13) GERD (gastroesophageal reflux disease): CODE(S): K21.9 - Gastro-esophageal reflux disease without esophagitis (14) History of below-knee amputation: CODE(S): Z89.519 - Acquired absence of unspecified leg below knee QUALIFIERS: Laterality: right Qualified Code(s): Z89.511 - Acquired absence of right leg below knee (15) History of total abdominal hysterectomy and bilateral salpingo-oophorectomy: CODE(S): Z90.710 - Acquired absence of both cervix and uterus; Z90.722 - Acquired absence of ovaries, bilateral; Z90.79 - Acquired absence of other genital organ(s) (16) History of cardiac radiofrequency ablation: CODE(S): Z98.890 - Other specified postprocedural states (17) History of carpal tunnel release: CODE(S): Z98.890 - Other specified postprocedural states (18) Hx of cholecystectomy: CODE(S): Z98.890 - Other specified postprocedural states; Z90.49 - Acquired absence of other specified parts of digestive tract (19) History of tonsillectomy: CODE(S): Z90.89 - Acquired absence of other organs (20) BRITT (obstructive sleep apnea): CODE(S): G47.33 - Obstructive sleep apnea (adult) (pediatric) (21) Diabetic neuropathy: CODE(S): E11.40 - Type 2 diabetes mellitus with diabetic neuropathy, unspecified QUALIFIERS: Diabetes mellitus type: type 2 Diabetes mellitus complication detail: diabetic polyneuropathy Qualified Code(s): E11.42 - Type 2 diabetes mellitus with diabetic polyneuropathy (22) Rheumatoid arthritis: CODE(S): M06.9 - Rheumatoid arthritis, unspecified (23) Pulmonary hypertension: CODE(S): I27.20 - Pulmonary hypertension, unspecified PLAN: Plan This is a 63-year-old female with multiple pre-existing medical problems, who presented with a 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 The right below-knee amputation was performed on October 19, 2023, [place] [facility]. Upon removal of her surgical luisana several weeks postoperatively, she developed a surgical wound dehiscence and was referred to the [facility] for definitive management. Measures have been implemented to minimize swelling in her right lower extremity, and have included leg elevation and sleeping on a flat mattress at night. As of today, the patient's dehiscent wound continues to decrease in size. It appears pink and healthy in appearance, with active granulation tissue. To date, 6 TheraSkin allograft applications have been applied. At today's visit, it is noted that there are significant erythematous, inflammatory changes about the patient's dehiscent wound, suggestive of a contact dermatitis. As result, we are to forego another application of TheraSkin today. Instead, we are to implement the use of Geovanna, which is to be applied topically on a daily basis. A barrier protectant is to be applied around the wound on the intact skin as a barrier to moisture and other topical materials. The patient appears to be doing well. She has been encouraged to optimize her nutritional intake and assure good control of her diabetes mellitus. She indicates that she continues to take a nutritional supplement on a regular basis. The patient has also undergone right mastectomy with sentinel lymph node biopsy by Dr. Knapp on March 15, 2024. The patient appears to be recovering uneventfully from her recent surgery, though still has 1 of [address] Ney-Mckeon dra[address] remaining in place, anticipated to be removed once the drainage diminishes. As a result of a low-grade fever recently, the patient's surgeon has placed her on doxycycline 100 mg p.o. twice daily for a total of 10 days. The patient is to return to the Wound Center in 1 week for reassessment. Total time: 25 minutes
--- NOTE | 2024-03-30 10:06 | WC ---
PHOTO 03/29/24 RIGHT SUP STUMP
[2024-04-05 15:04] VITALS: BP 149/62; PULSE 72; RESP 14; TEMP 36.3; BMI 54.1
--- NOTE | 2024-04-05 16:34 | PCM.WC.HP ---
History of Present Illness Date of Service: 04/05/24 Chief Complaint: Surgical wound dehiscence of the right below-knee amputation stump incision History of Wound: This is a 63-year-old morbidly obese female with multiple pre-existing medical conditions. She is a longstanding diabetic and has been poorly controlled. She suffers from diabetic peripheral neuropathy. She developed a right Charcot foot deformity, with collapse of her right arch. Her condition resulted in a right below-knee amputation which was performed at [facility] by Dr. aNrayan on October 19, 2023. The patient had a relatively uncomplicated postoperative course. She was transferred to the [facility] rehabilitation unit, where she continued to convalesce for several weeks. Several weeks postoperatively, Dr. Damon's staff removed the patient's surgical luisana, and the patient subsequently developed a dehiscence. She was referred to the [facility] for management of her right below-knee amputation stump incisional dehiscence. The patient had been using Neosporin and gauze topically. She had also been using a Coban wrap and has been fitted with a stump livestock breeder by [employer]. The patient's multiple pre-existing medical conditions are listed elsewhere. Of note, she underwent right breast needle biopsy on November 26, 2023, which was indicative of invasive ductal carcinoma. She is under the care of other providers for management of this recent diagnosis, including her surgeon, Dr. Knapp. Laboratory results have been obtained dated December 03, 2023, with results as follows: Sodium 139, potassium 4.0, chloride 106, BUN 21, creatinine 1.21, glucose 120, calcium 9.1, total bilirubin 0.60, AST 23, ALT 29, alkaline phosphatase 103, total protein 7.1, albumin 3.7. [facility] Medical History Invasive ductal carcinoma of right breast in female GERD (gastroesophageal reflux disease) Hyperlipidemia Tinea cruris Non-pressure chronic ulcer of right calf with fat layer exposed Wears glasses Post-menopausal Cancer Anxiety Open wound Thyroid disease Insulin dependent diabetes mellitus Uses wheelchair Fatty liver High cholesterol Dietary restriction Non-smoker History of edema History of echocardiogram History of stress test Cardiology follow-up encounter Surgical wound dehiscence Right leg swelling History of endometrial cancer Rheumatoid arthritis Diverticulosis Chronic renal failure, stage 3 (moderate) Pulmonary hypertension GERD (gastroesophageal reflux disease) Hyperlipidemia History of kidney stones Breast cancer in female Morbid obesity with BMI of 50.0-59.9, adult Hydronephrosis Ureteral calculus Charcot ankle Diabetic neuropathy Morbid obesity with BMI of 50.0-59.9, adult Diverticulosis Diabetes mellitus, type 2 Chronic renal failure (CRF), stage 3a Anemia Rheumatoid arthritis Chronic pain CPAP (continuous positive airway pressure) dependence Pulmonary hypertension BRITT (obstructive sleep apnea) Thyromegaly Hx of supraventricular tachycardia Nephrolithiasis Rosacea Fatty liver External hemorrhoid GERD without esophagitis Benign essential HTN Bilateral carpal tunnel syndrome Hyperlipidemia Low vitamin B12 level Multinodular goiter Tubular adenoma Adenocarcinoma of endometrium Home Medications ?Medication ?Instructions ?Recorded ?Last Taken ?Type aspirin 81 mg tablet,delayed 81 mg PO DAILY Heart health 01/11/16 03/06/24 History release cetirizine 10 mg capsule 10 mg PO DAILY Allergies 01/11/16 03/15/24 History metoprolol succinate 100 mg 100 mg PO DAILY BP 01/11/16 03/15/24 History tablet,extended release 24 hr multivitamin 1 ea PO DAILY Supplement 01/11/16 03/14/24 History omeprazole 40 mg capsule,delayed 40 mg PO DAILY GERD 01/11/16 03/15/24 History release simvastatin 20 mg tablet 20 mg PO QHS Cholestrol 01/11/16 03/14/24 History cyanocobalamin (vitamin B-12) 1,000 mcg PO DAILY Supplement 07/02/17 03/14/24 History 1,000 mcg sublingual tablet hydroxychloroquine 200 mg tablet 200 mg PO BID Platelets 04/28/18 03/14/24 History (Plaquenil) pregabalin 150 mg capsule (Lyrica) 150 mg PO QHS NERVE PAIN 06/14/18 03/15/24 History ferrous sulfate 325 mg (65 mg 325 mg PO DAILY supplement 04/25/20 03/14/24 History iron) tablet (Feosol) allopurinol 100 mg tablet 100 mg PO DAILY #30 tabs 11/18/23 03/14/24 Rx ascorbic acid (vitamin C) 500 mg 1,000 mg (2 x 500 mg) PO DAILY #30 11/18/23 03/14/24 Rx tablet tabs calcium carbonate (Oyster Shell 500 mg PO BREAKFAST #30 tabs 11/18/23 03/14/24 Rx Calcium 500) blood sugar diagnostic (OneTouch #100 ea 12/03/23 Unknown Rx Ultra Test strips) blood-glucose sensor (Dexcom G6 #9 ea 12/03/23 Unknown Rx Sensor device) blood-glucose transmitter (Dexcom #1 ea 12/03/23 Unknown Rx G6 Transmitter device) losartan 50 mg tablet (Cozaar) 50 mg PO DAILY #90 tabs 12/03/23 03/15/24 Rx OneTouch Delica Plus Lancet 33 #100 ea 12/04/23 Unknown Rx gauge (lancets) blood sugar diagnostic (OneTouch #100 ea 12/04/23 Unknown Rx Ultra Test strips) buspirone 5 mg tablet 5 mg PO TID #90 tabs 12/11/23 03/15/24 Rx alprazolam 0.5 mg tablet (Xanax) 0.5 mg PO TID PRN PRN panic attack 12/25/23 12/07/23 History fiber 1 cap PO DAILY 12/25/23 03/14/24 History oxycodone 5 mg capsule 5 mg PO Q6H PRN PRN pain 12/25/23 12/21/23 History anastrozole 1 mg tablet (Arimidex) 1 mg PO DAILY #90 tabs 02/24/24 03/15/24 Rx escitalopram oxalate 10 mg tablet 10 mg PO DAILY 03/03/24 03/14/24 History insulin regular hum U-500 conc 500 15 unit subcut LUNCH 03/04/24 03/14/24 History unit/mL(3 mL) subcut pen insulin regular hum U-500 conc 500 35 unit subcut DINNER 03/04/24 03/14/24 History unit/mL(3 mL) subcut pen insulin regular hum U-500 conc 500 35 unit subcut QHS 03/04/24 03/14/24 History unit/mL(3 mL) subcut pen insulin regular hum U-500 conc 500 175 unit subcut BREAKFAST Blood 03/04/24 03/15/24 History unit/mL(3 mL) subcut pen sugar levothyroxine 300 mcg tablet 300 mcg PO DAILY 03/04/24 03/15/24 History levothyroxine 300 mcg tablet 600 mcg PO GALARZA 03/04/24 03/13/24 History semaglutide 2 mg/dose (8 mg/3 mL) 1 mg subcut TH 03/04/24 02/25/24 History subcutaneous pen injector (Ozempic) insulin lispro 100 unit/mL 3 unit subcut TID PRN BLOOD SUGARS 03/15/24 Unknown History subcutaneous pen insulin lispro 100 unit/mL See Protocol subcut DAILY PRN 03/15/24 03/13/24 History subcutaneous pen elevated BS pregabalin 100 mg capsule (Lyrica) 100 mg PO BID NERVE PAIN 03/15/24 03/15/24 History acetaminophen 325 mg tablet 650 mg (2 x 325 mg) PO Q6H PRN PRN 03/16/24 Unknown Rx Pain Score 1-10 #0 tabs doxycycline hyclate 100 mg capsule 100 mg PO BID #10 caps 03/24/24 Unknown Rx Allergy/AdvReac Type Severity Reaction Status Date / Time No Known Allergies Allergy Verified 03/18/24 12:48 Family History Mother Ovarian cancer Hypertension Arthritis Uterine cancer Fibrocystic disease of breast Hypothyroid Father , Age 86-CHF Hypertension Arthritis Diverticulitis of colon Depression CAD (coronary artery disease) Sister Hypertension Depression CVA (cerebral vascular accident) Fibrocystic disease of breast Diabetes Bleeding disorder Portal hypertension Surgical History Status post right mastectomy History of cardiac catheterization Hx of cystoscopy Hx of total thyroidectomy History of tonsillectomy History of carpal tunnel release History of cardiac radiofrequency ablation History of total abdominal hysterectomy and bilateral salpingo-oophorectomy History of below-knee amputation S/P cystoscopy with ureteral stent placement History of right below knee amputation History of hand surgery H/O cardiac radiofrequency ablation (02/15/13) History of right and left heart catheterization (07/03/17) H/O colonoscopy H/O abdominal hysterectomy H/O carpal tunnel repair Previous section History of tonsillectomy Hx of cholecystectomy Surgical menopause Social History Smoking Status: Never smoker second hand exposure: No alcohol intake: never substance use type: does not use caffeine: No Vital Signs Vital Signs Vital Signs: 04/05/24 15:04 Temperature 97.4 F L Temperature Source Temporal Pulse Rate 72 Respiratory Rate 14 Blood Pressure 149/62 H Blood Pressure Mean 91 Blood Pressure Source Monitor Blood Pressure Position Sitting Blood Pressure Location Left Forearm Weight Weight: 335 lb Body Mass Index (BMI) 54.1 Physical Exam Const alert, oriented x3, no apparent distress and well nourished Constitutional Narrative: The patient is morbidly obese. General Appearance: cooperative, comfortable, well kempt and well developed Orientation / Consciousness: awake, oriented to person, oriented to place and oriented to time Exam Limitations: no limitations Nutritional Appearance: overweight HEENT normocephalic, head/scalp atraumatic and hearing grossly normal bilaterally Head and Scalp: normal to inspection, normocephalic and atraumatic Face and Sinus: normal facial exam Nose: external nose normal External Ear: external ears normal Eyes PERRL and EOMs intact bilaterally General Eye: normal appearance of both eyes Neck full ROM Resp normal respiratory effort, normal air movement, no retractions and no use of accessory muscles Effort and Inspection: able to speak in complete sentences Extremity no calf tenderness General Extremity: Negative for clubbing or cyanosis Skin Wound Narrative: A right below-knee amputation is noted. The dehiscent wound on the right BKA incision persists, though it continues to decrease in size significantly. Dimensions are documented elsewhere. The wound is pink and healthy in appearance, with active granulation tissue evident. There is a small amount of bioburden. The wound continues to diminish in size by means of peripheral epithelialization. There is no sign of infection or cellulitis. The periwound inflammatory changes have diminished with the recent implementation of a barrier protectant. These inflammatory changes are now nearly resolved. Neuro oriented x3, CN's II-XII intact bilaterally, moves all extremities, no focal motor deficits and no sensory deficits noted Sensorium / Orientation: awake, alert, oriented to person, oriented to place and oriented to time Psych Appearance: grossly normal and appropriate Attitude: calm Activity / Motor Behavior: appropriate eye contact Speech: normal speech Mood & Affect: euthymic mood Thought Process: normal thought process Thought Content: normal thought content Attention / Concentration: attention grossly intact Debridement Note Debridement Note Wound debrided: Dehiscent right below-knee amputation stump incision Laterality: Right Type of Debridement: Excisional debridement Anesthesia Used: 5% Lidocaine Gel Depth: Down to and including healthy tissue and in the subcutaneous layer Percentage of wound debrided: 100 Instrument Used: 5mm curette Tissue Removed: Non viable tissue and slough; bioburden Severity: Fat Layer Exposed Amount of bleeding with debridement: Mild Bleeding Controlled with: Compression and gauze Patient tolerated procedure: Patient tolerated procedure well Post-Debridement Measurements and Additional Note: Post-Debridement Measurements/Treatment - Nurse 1 - General Ulcer Assessment Start: 03/29/24 15:07 Freq: Status: Active Protocol: JIA.LOWEXT Activity Type Activity Date Activity User E-sign Co-sign Detail Recorded Client Recorded Date Recorded By Document 03/29/24 15:07 KW [id number] 03/29/24 15:12 KW Document 04/05/24 15:04 ML [id number] 04/05/24 15:13 ML 03/29/24 04/05/24 15:07 15:04 - Today's Visit Information Type of service Follow-up Visit Follow-up Visit (Physician/MINING MANAGER (Physician/MINING MANAGER ) ) Arrival Mode Wheelchair Wheelchair Transfer Assistance None Patient Identification Verified (Name & Yes Yes ) Patient Requires Transmission-Based No Precautions Finger Stick Blood Sugar(mg/dl) (if 152 indicated): Blood Sugar Stated by Patient Height and Weight Body Mass Index (BMI) 54.1 54.1 BMI Classification Obese Obese Vital Signs Temperature (97.8 F-99.1 F) 96.3 F L 97.4 F L Temperature Source Temporal Temporal Pulse Rate (60-100) 75 72 Pulse Location Monitor Monitor Respiratory Rate (12-18) 18 14 Respiratory rate source Observation Observation Oxygen Delivery Method Room Air Blood Pressure (90/60-120/80) 146/53 H 149/62 H Blood Pressure Mean 84 91 Source Monitor Monitor Position Semi-Fowlers Sitting Blood Pressure Location Right Arm Left Forearm History Since Last Visit- (Skip if this is Patient's initial visit) Have you changed medications since your No No last visit? Any new allergies or adverse reactions No No Had a fall/change in ADL's that may No No increase risk of falls Signs or symptoms of abuse and/or No No neglect since last visit Have you been in the hospital since your No last visit? Has dressing in place as prescribed Yes Yes Has compression in place as prescribed Yes Yes Has offloadiing in place as prescribed N/A N/A Experienced any changes in pain level or No No management Left Footwear Regular Shoe No Footwear Right Footwear Other Footwear Regular Shoe (Comment) Pain Scale: 0-10 Numeric Is Patient Pain Free? Yes No WC - Nurse 1 - General Ulcer Measurement Start: 03/29/24 15:07 Freq: Status: Active Protocol: Activity Type Activity Date Activity User E-sign Co-sign Detail Recorded Client Recorded Date Recorded By Document 03/29/24 15:07 KW [id number] 03/29/24 15:12 KW Document 04/05/24 15:04 ML [id number] 04/05/24 15:13 ML 03/29/24 04/05/24 15:07 15:04 Wound Center Nurse 1 #1 RT superior stump -Current Size (cm) - Length 2.4 1.5 -Current Size (cm) - Width 1.6 0.8 -Current Size (cm) - Depth 0.1 0.1 -Total Square Cm 3.84 1.20 -Date of Last Picture (Recall this 03/29/24 field) -Exudate Amt None Present -Exudate Type Serosanguineous -Wound Margin Distinct, Outline Attached -Granulation Amt Large (67-100%) None Present (0 %) -Granulation Quality Red -Slough/Fibrin No -Necrosis Amt None Present (0 %) -Texture (Fadumo-wound Skin Appearance) Assessed, Excoriation -Moisture (Fadumo-wound Skin Appearance) Assessed Assessed -Color (Fadumo-wound Skin Appearance) Assessed, Assessed Erythema -Temperature (Fadumo-wound Skin No Abnormality No Abnormality Appearance) (Pt Warm) (Pt Warm) -Tenderness on Palpation (Fadumo-wound No No Skin Appearance) -Ulcer Cleansing Soap and Water Rinsed/ Irrigated with Saline -Anesthetic Used 5% Lidocaine 5% Lidocaine Gel Gel WC - Nurse 2 - General Ulcer CM Notes Start: 03/29/24 15:07 Freq: Status: Active Protocol: Activity Type Activity Date Activity User E-sign Co-sign Detail Recorded Client Recorded Date Recorded By Document 03/29/24 15:30 JF [id number] 03/29/24 15:31 JF Document 04/05/24 15:54 DS [id number] 04/05/24 15:57 DS 03/29/24 04/05/24 15:30 15:54 Wound Center Nurse 2 #1 RT superior stump -Time 15:30 15:54 -Correct Patient Yes Yes -Correct Side, Site, Position Yes Yes -Correct Procedure Yes Yes -Procedure Performed Yes Yes -Type of Procedure Debridement Debridement -Clinical Debridement Subcutaneous Subcutaneous -Tissue Removed Subcutaneous Subcutaneous -Post Debridement (cm) - Length 2.5 1.3 -Post Debridement (cm) - Width 1.6 1.6 -Post Debridement (cm) - Depth 0.1 0.1 -Total Square (Post) (cm) 4.00 2.08 -Area of Debridement (cm) - Length 2.5 1.3 -Area of Debridement (cm) - Width 1.6 1.6 -Total Square (Area) (cm) 4.00 2.08 -Tunneling No No -Undermining/Tunneling No No -Circular Undermining No No -Wound/Ulcer Outcome Not Healed Not Healed -Ulcer Cleansing Rinsed/ Rinsed/ Irrigated with Irrigated with Saline Saline -Foul Odor after Cleansing No -Bioengineered Tissue No No -Bleeding Controlled with Pressure Pressure -Treatment Response Procedure Procedure Tolerated Well Tolerated Well -Offloading No -Debridement - Subq, 1st 20sq cm Yes Yes Pain Scale: 0-10 Numeric Is Patient Pain Free? Yes Yes - Nurse 3 - General Ulcer D/C NN Start: 03/29/24 15:07 Freq: Status: Active Protocol: Activity Type Activity Date Activity User E-sign Co-sign Detail Recorded Client Recorded Date Recorded By Document 03/29/24 15:40 RB [id number] 03/29/24 15:41 RB Document 04/05/24 16:07 ML [id number] 04/05/24 16:07 ML 03/29/24 04/05/24 15:40 16:07 Wound Care Center Nurse 3 #1 RT superior stump -Ulcer Cleansing Rinsed/ Irrigated with Saline -Primary Dressing Applied Promogran Promogran Geovanna Matter Geovanna Matter -Other Dressing ABD/PETER peter -Primary Dressing Covered/Secured with Dry Gauze & Dry Gauze,Dry Roll Gauze, Gauze & Roll Secured with Gauze,Secured Tape with Tape -Promogran Geovanna Matter 1 1 Right -Other peter Treatment Response Procedure Tolerated Well Pain Scale: 0-10 Numeric Is Patient Pain Free? Yes Yes Teaching: Wound Center Dressing Your Wound -Person Taught Patient,Family -Teaching Method Demonstration -Response to teaching Return Demonstration, Verbalize Understanding - Visit Discharge Discharge Condition Stable Ambulatory Status Ambulatory, Wheelchair Transportation Private Auto Medication Reconcilliation completed & No provided to patient/care provider Clinical Summary of Care Provided Yes Notes: London Swain assisted with dressing application Charges/Coding Procedures Integumentary [id number]: [id number] Padmini subq tissue 20 sq cm/< Assessment/Plan Assessment/Plan (1) Non-pressure chronic ulcer of right calf with fat layer exposed: CODE(S): L97.212 - Non-pressure chronic ulcer of right calf with fat layer exposed (2) Surgical wound dehiscence: CODE(S): T81.31XA - Disruption of external operation (surgical) wound, not elsewhere classified, initial encounter QUALIFIERS: Encounter type: subsequent encounter Qualified Code(s): T81.31XD - Disruption of external operation (surgical) wound, not elsewhere classified, subsequent encounter (3) History of right below knee amputation: CODE(S): Z89.511 - Acquired absence of right leg below knee (4) Morbid obesity with BMI of 50.0-59.9, adult: CODE(S): E66.01 - Morbid (severe) obesity due to excess calories; Z68.43 - Body mass index [BMI] 50.0-59.9, adult (5) Diabetes mellitus, type 2: CODE(S): E11.9 - Type 2 diabetes mellitus without complications QUALIFIERS: Diabetes mellitus fpc insulin use: with computer terminal operator use Diabetes mellitus complication status: with kidney complications Diabetes mellitus complication detail: with chronic kidney disease Chronic kidney disease stage: stage 3 (moderate) Chronic kidney disease stage 3 subtype: stage 3a (GFR 45-59) Qualified Code(s): E11.22 - Type 2 diabetes mellitus with diabetic chronic kidney disease; N18.31 - Chronic kidney disease, stage 3a; Z79.4 - 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 termite (current) use of insulin (6) Below knee amputation: CODE(S): S88.119A - 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, unspecified lower leg, initial encounter QUALIFIERS: Encounter type: sequela Laterality: bilateral Qualified Code(s): S88.111S - 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, right lower leg, sequela; S88.112S - 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, left lower leg, sequela (7) Hypothyroid: CODE(S): E03.9 - Hypothyroidism, unspecified QUALIFIERS: Hypothyroidism type: acquired Qualified Code(s): E03.9 - Hypothyroidism, unspecified (8) Benign essential HTN: CODE(S): I10 - Essential (primary) hypertension (9) Breast cancer in female: CODE(S): C50.919 - Malignant neoplasm of unspecified site of unspecified female breast QUALIFIERS: Breast location: unspecified site of breast Estrogen receptor status: positive Laterality: right Qualified Code(s): C50.911 - Malignant neoplasm of unspecified site of right female breast; Z17.0 - Estrogen receptor positive status [ER+] (10) Physical debility: CODE(S): R53.81 - Other malaise (11) Right leg swelling: CODE(S): M79.89 - Other specified soft tissue disorders (12) Hyperlipidemia: CODE(S): E78.5 - Hyperlipidemia, unspecified (13) GERD (gastroesophageal reflux disease): CODE(S): K21.9 - Gastro-esophageal reflux disease without esophagitis (14) History of below-knee amputation: CODE(S): Z89.519 - Acquired absence of unspecified leg below knee QUALIFIERS: Laterality: right Qualified Code(s): Z89.511 - Acquired absence of right leg below knee (15) History of total abdominal hysterectomy and bilateral salpingo-oophorectomy: CODE(S): Z90.710 - Acquired absence of both cervix and uterus; Z90.722 - Acquired absence of ovaries, bilateral; Z90.79 - Acquired absence of other genital organ(s) (16) History of cardiac radiofrequency ablation: CODE(S): Z98.890 - Other specified postprocedural states (17) History of carpal tunnel release: CODE(S): Z98.890 - Other specified postprocedural states (18) Hx of cholecystectomy: CODE(S): Z98.890 - Other specified postprocedural states; Z90.49 - Acquired absence of other specified parts of digestive tract (19) History of tonsillectomy: CODE(S): Z90.89 - Acquired absence of other organs (20) BRITT (obstructive sleep apnea): CODE(S): G47.33 - Obstructive sleep apnea (adult) (pediatric) (21) Diabetic neuropathy: CODE(S): E11.40 - Type 2 diabetes mellitus with diabetic neuropathy, unspecified QUALIFIERS: Diabetes mellitus type: type 2 Diabetes mellitus complication detail: diabetic polyneuropathy Qualified Code(s): E11.42 - Type 2 diabetes mellitus with diabetic polyneuropathy (22) Rheumatoid arthritis: CODE(S): M06.9 - Rheumatoid arthritis, unspecified (23) Pulmonary hypertension: CODE(S): I27.20 - Pulmonary hypertension, unspecified PLAN: Plan This is a 63-year-old female with multiple pre-existing medical problems, who presented with a 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 The right below-knee amputation was performed on October 19, 2023, at [facility]. Upon removal of her surgical luisana several weeks postoperatively, she developed a surgical wound dehiscence and was referred to the [facility] for definitive management. Measures have been implemented to minimize swelling in her right lower extremity, and have included leg elevation and sleeping on a flat mattress at night. As of today, the patient's dehiscent wound continues to decrease in size. It appears pink and healthy in appearance, with active granulation tissue. To date, 6 TheraSkin allograft applications have been applied. At today's visit, the periwound inflammatory changes have nearly resolved, as a result of the implementation of a barrier protectant. We are to continue the use of Geovanna, which is to be applied topically on a daily basis. A barrier protectant is to be applied around the wound on the intact skin as a barrier to moisture and other topical materials. The patient appears to be doing well. She has been encouraged to optimize her nutritional intake and assure good control of her diabetes mellitus. She indicates that she continues to take a nutritional supplement on a regular basis. The patient has also undergone right mastectomy with sentinel lymph node biopsy by Dr. Knapp on March 15, 2024. The patient appears to be recovering uneventfully from her recent surgery, though still has 1 of [address] Ney-Mckeon dra[address] remaining in place, anticipated to be removed once the drainage diminishes. As a result of a low-grade fever recently, the patient's surgeon placed her on doxycycline 100 mg p.o. twice daily for a total of 10 days, which has been completed. The patient is to return to the Wound Center in 1 week for reassessment. Total time: 24 minutes
--- NOTE | 2024-04-06 08:38 | WC ---
PHOTO 04/05/24 RIGHT STUMP
[2024-04-12 15:01] VITALS: BP 143/58; PULSE 78; RESP 18; TEMP 36.8; BMI 54.1
--- NOTE | 2024-04-12 18:15 | HP.PCM_ITS ---
History of Present Illness Date of Service: 04/12/24 Chief Complaint: Surgical wound dehiscence of the right below-knee amputation stump incision History of Wound: This is a 63-year-old morbidly obese female with multiple pre- existing medical conditions. She is a longstanding diabetic and has been poorly controlled. She suffers from diabetic peripheral neuropathy. She developed a right Charcot foot deformity, with collapse of her right arch. Her condition resulted in a right below-knee amputation which was performed at [facility] by Dr. Narayan on October 19, 2023. The patient had a relatively uncomplicated postoperative course. She was transferred to the [facility] rehabilitation unit, where she continued to convalesce for several weeks. Several weeks postoperatively, Dr. Damon's staff removed the patient's surgical luisana, and the patient subsequently developed a dehiscence. She was referred to the [facility] for management of her right below-knee amputation stump incisional dehiscence. The patient had been using Neosporin and gauze topically. She had also been using a Coban wrap and has been fitted with a stump employment counselor by [employer]. The patient's multiple pre-existing medical conditions are listed elsewhere. Of note, she underwent right breast needle biopsy on November 26, 2023, which was indicative of invasive ductal carcinoma. She is under the care of other providers for management of this recent diagnosis, including her surgeon, Dr. Knapp. Laboratory results have been obtained dated December 03, 2023, with results as follows: Sodium 139, potassium 4.0, chloride 106, BUN 21, creatinine 1.21, gl ucose 120, calcium 9.1, total bilirubin 0.60, AST 23, ALT 29, alkaline phosphatase 103, total protein 7.1, albumin 3.7. [facility] Medical History Invasive ductal carcinoma of right breast in female GERD (gastroesophageal reflux disease) Hyperlipidemia Tinea cruris Non-pressure chronic ulcer of right calf with fat layer exposed Wears glasses Post-menopausal Cancer Anxiety Open wound Thyroid disease Insulin dependent diabetes mellitus Uses wheelchair Fatty liver High cholesterol Dietary restriction Non-smoker History of edema History of echocardiogram History of stress test Cardiology follow-up encounter Surgical wound dehiscence Right leg swelling History of endometrial cancer Rheumatoid arthritis Diverticulosis Chronic renal failure, stage 3 (moderate) Pulmonary hypertension GERD (gastroesophageal reflux disease) Hyperlipidemia History of kidney stones Breast cancer in female Morbid obesity with BMI of 50.0-59.9, adult Hydronephrosis Ureteral calculus Charcot ankle Diabetic neuropathy Morbid obesity with BMI of 50.0-59.9, adult Diverticulosis Diabetes mellitus, type 2 Chronic renal failure (CRF), stage 3a Anemia Rheumatoid arthritis Chronic pain CPAP (continuous positive airway pressure) dependence Pulmonary hypertension BRITT (obstructive sleep apnea) Thyromegaly Hx of supraventricular tachycardia Nephrolithiasis Rosacea Fatty liver External hemorrhoid GERD without esophagitis Benign essential HTN Bilateral carpal tunnel syndrome Hyperlipidemia Low vitamin B12 level Multinodular goiter Tubular adenoma Adenocarcinoma of endometrium Home Medications ?Medication ?Instructions ?Recorded ?Last Taken ?Type aspirin 81 mg tablet,delayed 81 mg PO DAILY Heart health 01/11/16 03/06/24 History release cetirizine 10 mg capsule 10 mg PO DAILY Allergies 01/11/16 03/15/24 History metoprolol succinate 100 mg 100 mg PO DAILY BP 01/11/16 03/15/24 History tablet,extended release 24 hr multivitamin 1 ea PO DAILY Supplement 01/11/16 03/14/24 History omeprazole 40 mg capsule,delayed 40 mg PO DAILY GERD 01/11/16 03/15/24 History release simvastatin 20 mg tablet 20 mg PO QHS Cholestrol 01/11/16 03/14/24 History cyanocobalamin (vitamin B-12) 1,000 mcg PO DAILY Supplement 07/02/17 03/14/24 History 1,000 mcg sublingual tablet hydroxychloroquine 200 mg tablet 200 mg PO BID Platelets 04/28/18 03/14/24 History (Plaquenil) pregabalin 150 mg capsule (Lyrica) 150 mg PO QHS NERVE PAIN 06/14/18 03/15/24 History ferrous sulfate 325 mg (65 mg 325 mg PO DAILY supplement 04/25/20 03/14/24 History iron) tablet (Feosol) allopurinol 100 mg tablet 100 mg PO DAILY #30 tabs 11/18/23 03/14/24 Rx ascorbic acid (vitamin C) 500 mg 1,000 mg (2 x 500 mg) PO DAILY #30 11/18/23 03/14/24 Rx tablet tabs calcium carbonate (Oyster Shell 500 mg PO BREAKFAST #30 tabs 11/18/23 03/14/24 Rx Calcium 500) blood sugar diagnostic (OneTouch #100 ea 12/03/23 Unknown Rx Ultra Test strips) blood-glucose sensor (Dexcom G6 #9 ea 12/03/23 Unknown Rx Sensor device) blood-glucose transmitter (Dexcom #1 ea 12/03/23 Unknown Rx G6 Transmitter device) losartan 50 mg tablet (Cozaar) 50 mg PO DAILY #90 tabs 12/03/23 03/15/24 Rx OneTouch Delica Plus Lancet 33 #100 ea 12/04/23 Unknown Rx gauge (lancets) blood sugar diagnostic (OneTouch #100 ea 12/04/23 Unknown Rx Ultra Test strips) buspirone 5 mg tablet 5 mg PO TID #90 tabs 12/11/23 03/15/24 Rx alprazolam 0.5 mg tablet (Xanax) 0.5 mg PO TID PRN PRN panic attack 12/25/23 12/07/23 History fiber 1 cap PO DAILY 12/25/23 03/14/24 History oxycodone 5 mg capsule 5 mg PO Q6H PRN PRN pain 12/25/23 12/21/23 History anastrozole 1 mg tablet (Arimidex) 1 mg PO DAILY #90 tabs 02/24/24 03/15/24 Rx escitalopram oxalate 10 mg tablet 10 mg PO DAILY 03/03/24 03/14/24 History insulin regular hum U-500 conc 500 15 unit subcut LUNCH 03/04/24 03/14/24 History unit/mL(3 mL) subcut pen insulin regular hum U-500 conc 500 35 unit subcut DINNER 03/04/24 03/14/24 History unit/mL(3 mL) subcut pen insulin regular hum U-500 conc 500 35 unit subcut QHS 03/04/24 03/14/24 History unit/mL(3 mL) subcut pen insulin regular hum U-500 conc 500 175 unit subcut BREAKFAST Blood 03/04/24 03/15/24 History unit/mL(3 mL) subcut pen sugar levothyroxine 300 mcg tablet 300 mcg PO DAILY 03/04/24 03/15/24 History levothyroxine 300 mcg tablet 600 mcg PO GALARZA 03/04/24 03/13/24 History semaglutide 2 mg/dose (8 mg/3 mL) 1 mg subcut TH 03/04/24 02/25/24 History subcutaneous pen injector (Ozempic) insulin lispro 100 unit/mL 3 unit subcut TID PRN BLOOD SUGARS 03/15/24 Unknown History subcutaneous pen insulin lispro 100 unit/mL See Protocol subcut DAILY PRN 03/15/24 03/13/24 History subcutaneous pen elevated BS pregabalin 100 mg capsule (Lyrica) 100 mg PO BID NERVE PAIN 03/15/24 03/15/24 History acetaminophen 325 mg tablet 650 mg (2 x 325 mg) PO Q6H PRN PRN 03/16/24 Unknown Rx Pain Score 1-10 #0 tabs doxycycline hyclate 100 mg capsule 100 mg PO BID #10 caps 03/24/24 Unknown Rx Allergy/AdvReac Type Severity Reaction Status Date / Time No Known Allergies Allergy Verified 04/11/24 15:25 Family History Mother Ovarian cancer Hypertension Arthritis Uterine cancer Fibrocystic disease of breast Hypothyroid Father , Age 86-CHF Hypertension Arthritis Diverticulitis of colon Depression CAD (coronary artery disease) Sister Hypertension Depression CVA (cerebral vascular accident) Fibrocystic disease of breast Diabetes Bleeding disorder Portal hypertension Surgical History Status post right mastectomy History of cardiac catheterization Hx of cystoscopy Hx of total thyroidectomy History of tonsillectomy History of carpal tunnel release History of cardiac radiofrequency ablation History of total abdominal hysterectomy and bilateral salpingo-oophorectomy History of below-knee amputation S/P cystoscopy with ureteral stent placement History of right below knee amputation History of hand surgery H/O cardiac radiofrequency ablation (02/15/13) History of right and left heart catheterization (07/03/17) H/O colonoscopy H/O abdominal hysterectomy H/O carpal tunnel repair Previous section History of tonsillectomy Hx of cholecystectomy Surgical menopause Social History Smoking Status: Never smoker second hand exposure: No alcohol intake: never substance use type: does not use caffeine: No Vital Signs Vital Signs Vital Signs: 04/12/24 15:01 Temperature 98.3 F Temperature Source Temporal Pulse Rate 78 Respiratory Rate 18 Blood Pressure 143/58 H Blood Pressure Mean 86 Blood Pressure Source Monitor Blood Pressure Position Sitting Blood Pressure Location Left Arm Oxygen Delivery Method Room Air Weight Weight: 335 lb Body Mass Index (BMI) 54.1 Physical Exam Const alert, oriented x3, no apparent distress, no limitations, healthy appearing and well nourished General Appearance: cooperative, comfortable, well kempt and well developed Orientation / Consciousness: awake, oriented to person, oriented to place and oriented to time Exam Limitations: no limitations Nutritional Appearance: overweight HEENT normocephalic and head/scalp atraumatic Head and Scalp: normal to inspection Face and Sinus: normal facial exam Nose: external nose normal External Ear: external ears normal Eyes EOMs intact bilaterally Neck full ROM Resp normal respiratory effort, normal air movement, no retractions and no use of accessory muscles Effort and Inspection: able to speak in complete sentences and symmetric chest movement Skin Wound Narrative: A right below-knee amputation is noted. The dehiscent wound on the right below-knee amputation incision persists, though it continues to decrease in size significantly. Dimensions are documented elsewhere. The wound is pink and healthy in appearance, with active granulation tissue evident. There is a small amount of bioburden. The wound continues to diminish in size by means of peripheral epithelialization. There is no sign of infection or cellulitis. There is no significant periwound erythema. Hair: normal Neuro oriented x3, CN's II-XII intact bilaterally, moves all extremities, no focal motor deficits and no sensory deficits noted Sensorium / Orientation: awake, alert, oriented to person, oriented to place and oriented to time Debridement Note Debridement Note Wound debrided: Dehiscent right below-knee amputation stump incision Laterality: Right Type of Debridement: Excisional debridement Anesthesia Used: 5% Lidocaine Gel Depth: Down to and including healthy tissue and in the subcutaneous layer Percentage of wound debrided: 100 Instrument Used: 5mm curette Tissue Removed: Non viable tissue and slough; bioburden Severity: Fat Layer Exposed Amount of bleeding with debridement: Mild Bleeding Controlled with: Compression and gauze Patient tolerated procedure: Patient tolerated procedure well Post-Debridement Measurements and Additional Note: Post-Debridement Measurements/Treatment JIA - Nurse 1 - General Ulcer Assessment Start: 03/29/24 15:07 Freq: Status: Active Protocol: MATT Activity Type Activity Date Activity User E-sign Co-sign Detail Recorded Client Recorded Date Recorded By Document 03/29/24 15:07 KW [id number] 03/29/24 15:12 KW Document 04/05/24 15:04 ML [id number] 04/05/24 15:13 ML Document 04/12/24 15:01 KW [id number] 04/12/24 15:07 KW 03/29/24 04/05/24 04/12/24 15:07 15:04 15:01 WC - Today's Visit Information Type of service Follow-up Visit Follow-up Visit Follow-up Visit (Physician/DIRECTOR OF MARKETING ANALYTICS (Physician/DIRECTOR OF MARKETING ANALYTICS (Physician/DIRECTOR OF MARKETING ANALYTICS ) ) ) Arrival Mode Wheelchair Wheelchair Wheelchair Transfer Assistance None Accompanied by Patient Identification Verified (Name & Yes Yes Yes ) Patient Requires Transmission-Based No Precautions Finger Stick Blood Sugar(mg/dl) (if 152 indicated): Blood Sugar Stated by Patient Height and Weight Body Mass Index (BMI) 54.1 54.1 54.1 BMI Classification Obese Obese Obese Vital Signs Temperature (97.8 F-99.1 F) 96.3 F L 97.4 F L 98.3 F Temperature Source Temporal Temporal Temporal Pulse Rate (60-100) 75 72 78 Pulse Location Monitor Monitor Monitor Respiratory Rate (12-18) 18 14 18 Respiratory rate source Observation Observation Observation Oxygen Delivery Method Room Air Room Air Blood Pressure (90/60-120/80) 146/53 H 149/62 H 143/58 H Blood Pressure Mean 84 91 86 Source Monitor Monitor Monitor Position Semi-Fowlers Sitting Sitting Blood Pressure Location Right Arm Left Forearm Left Arm History Since Last Visit- (Skip if this is Patient's initial visit) Have you changed medications since your No No No last visit? Any new allergies or adverse reactions No No No Had a fall/change in ADL's that may No No No increase risk of falls Signs or symptoms of abuse and/or No No No neglect since last visit Have you been in the hospital since your No No last visit? Has dressing in place as prescribed Yes Yes Yes Has compression in place as prescribed Yes Yes Yes Has offloadiing in place as prescribed N/A N/A N/A Experienced any changes in pain level or No No No management Left Footwear Regular Shoe No Footwear No Footwear Right Footwear Other Footwear Regular Shoe Regular Shoe (Comment) Pain Scale: 0-10 Numeric Is Patient Pain Free? Yes No Yes WC - Nurse 1 - General Ulcer Measurement Start: 03/29/24 15:07 Freq: Status: Active Protocol: Activity Type Activity Date Activity User E-sign Co-sign Detail Recorded Client Recorded Date Recorded By Document 03/29/24 15:07 KW [id number] 03/29/24 15:12 KW Document 04/05/24 15:04 ML [id number] 04/05/24 15:13 ML Document 04/12/24 15:01 KW [id number] 04/12/24 15:07 KW 03/29/24 04/05/24 04/12/24 15:07 15:04 15:01 Wound Center Nurse 1 #1 RT superior stump -Current Size (cm) - Length 2.4 1.5 1 -Current Size (cm) - Width 1.6 0.8 0.5 -Current Size (cm) - Depth 0.1 0.1 0.1 -Total Square Cm 3.84 1.20 0.5 -Date of Last Picture (Recall this 03/29/24 field) -Exudate Amt None Present Small -Exudate Type Serosanguineous Serosanguineous -Wound Margin Distinct, Distinct, Outline Outline Attached Attached -Granulation Amt Large (67-100%) None Present (0 Large (67-100%) %) -Granulation Quality Red Red -Slough/Fibrin No -Necrosis Amt None Present (0 %) -Texture (Fadumo-wound Skin Appearance) Assessed, Assessed Excoriation -Moisture (Fadumo-wound Skin Appearance) Assessed Assessed Assessed -Color (Fadumo-wound Skin Appearance) Assessed, Assessed Assessed Erythema -Temperature (Fadumo-wound Skin No Abnormality No Abnormality No Abnormality Appearance) (Pt Warm) (Pt Warm) (Pt Warm) -Tenderness on Palpation (Fadumo-wound No No No Skin Appearance) -Ulcer Cleansing Soap and Water Rinsed/ Rinsed/ Irrigated with Irrigated with Saline Saline -Foul Odor after Cleansing No -Anesthetic Used 5% Lidocaine 5% Lidocaine 5% Lidocaine Gel Gel Gel WC - Nurse 2 - General Ulcer CM Notes Start: 03/29/24 15:07 Freq: Status: Active Protocol: Activity Type Activity Date Activity User E-sign Co-sign Detail Recorded Client Recorded Date Recorded By Document 03/29/24 15:30 [id number] 03/29/24 15:31 JF Document 04/05/24 15:54 DS [id number] 04/05/24 15:57 DS Document 04/12/24 15:41 DS [id number] 04/12/24 15:43 DS 03/29/24 04/05/24 04/12/24 15:30 15:54 15:41 Wound Center Nurse 2 #1 RT superior stump -Time 15:30 15:54 15:41 -Correct Patient Yes Yes Yes -Correct Side, Site, Position Yes Yes Yes -Correct Procedure Yes Yes Yes -Procedure Performed Yes Yes Yes -Type of Procedure Debridement Debridement Debridement -Clinical Debridement Subcutaneous Subcutaneous Subcutaneous -Tissue Removed Subcutaneous Subcutaneous Subcutaneous -Post Debridement (cm) - Length 2.5 1.3 1.4 -Post Debridement (cm) - Width 1.6 1.6 1.0 -Post Debridement (cm) - Depth 0.1 0.1 0.1 -Total Square (Post) (cm) 4.00 2.08 1.40 -Area of Debridement (cm) - Length 2.5 1.3 1.4 -Area of Debridement (cm) - Width 1.6 1.6 1.0 -Total Square (Area) (cm) 4.00 2.08 1.40 -Tunneling No No No -Undermining/Tunneling No No No -Circular Undermining No No No -Wound/Ulcer Outcome Not Healed Not Healed Not Healed -Ulcer Cleansing Rinsed/ Rinsed/ Rinsed/ Irrigated with Irrigated with Irrigated with Saline Saline Saline -Foul Odor after Cleansing No -Bioengineered Tissue No No No -Bleeding Controlled with Pressure Pressure Pressure -Treatment Response Procedure Procedure Procedure Tolerated Well Tolerated Well Tolerated Well -Offloading No -Debridement - Subq, 1st 20sq cm Yes Yes Yes Pain Scale: 0-10 Numeric Is Patient Pain Free? Yes Yes Yes WC - Nurse 3 - General Ulcer D/C NN Start: 03/29/24 15:07 Freq: Status: Active Protocol: Activity Type Activity Date Activity User E-sign Co-sign Detail Recorded Client Recorded Date Recorded By Document 03/29/24 15:40 RB [id number] 03/29/24 15:41 RB Document 04/05/24 16:07 ML [id number] 04/05/24 16:07 ML Document 04/12/24 16:06 KW [id number] 04/12/24 16:07 KW 03/29/24 04/05/24 04/12/24 15:40 16:07 16:06 Wound Care Center Nurse 3 #1 RT superior stump -Ulcer Cleansing Rinsed/ Irrigated with Saline -Primary Dressing Applied Promogran Promogran Promogran Geovanna Matter Geovanna Matter Geovanna Matter -Other Dressing ABD/JOZEF jozef -Primary Dressing Covered/Secured with Dry Gauze & Dry Gauze,Dry Dry Gauze Roll Gauze, Gauze & Roll Secured with Gauze,Secured Tape with Tape -Promogran Geovanna Matter 1 1 1 Right -Compression Wrap Jozef Wrap -Other jozef Treatment Response Procedure Tolerated Well Pain Scale: 0-10 Numeric Is Patient Pain Free? Yes Yes Yes Teaching: Wound Center Dressing Your Wound -Person Taught Patient,Family -Teaching Method Demonstration -Response to teaching Return Demonstration, Verbalize Understanding WC - Visit Discharge Discharge Condition Stable Ambulatory Status Ambulatory, Wheelchair Transportation Private Auto Medication Reconcilliation completed & No provided to patient/care provider Clinical Summary of Care Provided Yes Notes: London Swain assisted with dressing application Charges/Coding Procedures Integumentary [id number]: [id number] Padmini subq tissue 20 sq cm/< Assessment/Plan Assessment/Plan (1) Non-pressure chronic ulcer of right calf with fat layer exposed: CODE(S): L97.212 - Non-pressure chronic ulcer of right calf with fat layer exposed (2) Surgical wound dehiscence: CODE(S): T81.31XA - Disruption of external operation (surgical) wound, not elsewhere classified, initial encounter QUALIFIERS: Encounter type: subsequent encounter Qualified Code(s): T81.31XD - Disruption of external operation (surgical) wound, not elsewhere classified, subsequent encounter (3) History of right below knee amputation: CODE(S): Z89.511 - Acquired absence of right leg below knee (4) Morbid obesity with BMI of 50.0-59.9, adult: CODE(S): E66.01 - Morbid (severe) obesity due to excess calories; Z68.43 - Body mass index [BMI] 50.0-59.9, adult (5) Diabetes mellitus, type 2: CODE(S): E11.9 - Type 2 diabetes mellitus without complications QUALIFIERS: Diabetes mellitus half-way insulin use: with parts counterman use Diabetes mellitus complication status: with kidney complications Diabetes mellitus complication detail: with chronic kidney disease Chronic kidney disease stage: stage 3 (moderate) Chronic kidney disease stage 3 subtype: stage 3a (GFR 45-59) Qualified Code(s): E11.22 - Type 2 diabetes mellitus with diabetic chronic kidney disease; N18.31 - Chronic kidney disease, stage 3a; Z79.4 - parts counterman (current) use of insulin (6) Below knee amputation: CODE(S): S88.119A - 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, unspecified lower leg, initial encounter QUALIFIERS: Encounter type: sequela Laterality: bilateral Qualified Code(s): S88.111S - 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, right lower leg, sequela; S88.112S - 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, left lower leg, sequela (7) Hypothyroid: CODE(S): E03.9 - Hypothyroidism, unspecified QUALIFIERS: Hypothyroidism type: acquired Qualified Code(s): E03.9 - Hypothyroidism, unspecified (8) Benign essential HTN: CODE(S): I10 - Essential (primary) hypertension (9) Breast cancer in female: CODE(S): C50.919 - Malignant neoplasm of unspecified site of unspecified female breast QUALIFIERS: Breast location: unspecified site of breast Estrogen receptor status: positive Laterality: right Qualified Code(s): C50.911 - Malignant neoplasm of unspecified site of right female breast; Z17.0 - Estrogen receptor positive status [ER+] (10) Physical debility: CODE(S): R53.81 - Other malaise (11) Right leg swelling: CODE(S): M79.89 - Other specified soft tissue disorders (12) Hyperlipidemia: CODE(S): E78.5 - Hyperlipidemia, unspecified (13) GERD (gastroesophageal reflux disease): CODE(S): K21.9 - Gastro-esophageal reflux disease without esophagitis (14) History of below-knee amputation: CODE(S): Z89.519 - Acquired absence of unspecified leg below knee QUALIFIERS: Laterality: right Qualified Code(s): Z89.511 - Acquired absence of right leg below knee (15) History of total abdominal hysterectomy and bilateral salpingo- oophorectomy: CODE(S): Z90.710 - Acquired absence of both cervix and uterus; Z90.722 - Acquired absence of ovaries, bilateral; Z90.79 - Acquired absence of other genital organ(s) (16) History of cardiac radiofrequency ablation: CODE(S): Z98.890 - Other specified postprocedural states (17) History of carpal tunnel release: CODE(S): Z98.890 - Other specified postprocedural states (18) Hx of cholecystectomy: CODE(S): Z98.890 - Other specified postprocedural states; Z90.49 - Acquired absence of other specified parts of digestive tract (19) History of tonsillectomy: CODE(S): Z90.89 - Acquired absence of other organs (20) BRITT (obstructive sleep apnea): CODE(S): G47.33 - Obstructive sleep apnea (adult) (pediatric) (21) Diabetic neuropathy: CODE(S): E11.40 - Type 2 diabetes mellitus with diabetic neuropathy, unspecified QUALIFIERS: Diabetes mellitus type: type 2 Diabetes mellitus complication detail: diabetic polyneuropathy Qualified Code(s): E11.42 - Type 2 diabetes mellitus with diabetic polyneuropathy (22) Rheumatoid arthritis: CODE(S): M06.9 - Rheumatoid arthritis, unspecified (23) Pulmonary hypertension: CODE(S): I27.20 - Pulmonary hypertension, unspecified PLAN: Plan This is a 63-year-old female with multiple pre-existing medical problems, who presented with a 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 The right below-knee amputation was performed on October 19, 2023, at [facility]. Upon removal of her surgical luisana several weeks postoperatively, she developed a surgical wound dehiscence and was referred to the [facility] for definitive management. Measures have been implemented to minimize swelling in her right lower extremity, and have included leg elevation and sleeping on a flat mattress at night. As of today, the patient's dehiscent wound continues to decrease in size. It appears pink and healthy in appearance, with active granulation tissue. To date, 6 TheraSkin allograft applications have been applied. At today's visit, the periwound inflammatory changes have resolved, as a result of the implementation of a barrier protectant. We are to continue the use of Geovanna, which is to be applied topically on a daily basis. A barrier protectant is to be applied around the wound on the intact skin as a barrier to moisture and other topical materials. The patient appears to be doing well. She has been encouraged to optimize her nutritional intake and assure good control of her diabetes mellitus. She indicates that she continues to take a nutritional supplement on a regular basis. The patient has also undergone right mastectomy with sentinel lymph node biopsy by Dr. Knapp on March 15, 2024. The patient appears to be recovering uneventfully from her recent surgery. The patient has recently met with her oncologist, who has indicated that chemotherapy may be appropriate for her in the coming months. Wound healing as a prelude to c hemotherapy is preferred. The patient is to return to the Wound Center in 2 weeks for reassessment. Total time: 25 minutes
== END 2024-04-25 23:59 | disposition home or self-care (01) ==
LOC: WC 15:15
PROVIDERS: PCP Nurse Practitioner Family; Referring Provider Nurse Practitioner Family; Visit Provider Surgery
DX: E11.622 Type 2 diabetes mellitus with other skin ulcer (principal); L97.212 Non-pressure chronic ulcer of right calf with fat layer exposed; M06.9 Rheumatoid arthritis, unspecified; Z89.511 Acquired absence of right leg below knee; I27.20 Pulmonary hypertension, unspecified; E66.01 Morbid (severe) obesity due to excess calories; C50.911 Malignant neoplasm of unspecified site of right female breast; Z79.4 Long term (current) use of insulin; E11.42 Type 2 diabetes mellitus with diabetic polyneuropathy; E11.22 Type 2 diabetes mellitus with diabetic chronic kidney disease; E11.610 Type 2 diabetes mellitus with diabetic neuropathic arthropathy; N18.31 Chronic kidney disease, stage 3a; G47.33 Obstructive sleep apnea (adult) (pediatric); D64.9 Anemia, unspecified; Z17.0 Estrogen receptor positive status [ER+]; E78.5 Hyperlipidemia, unspecified; E89.0 Postprocedural hypothyroidism; Z80.41 Family history of malignant neoplasm of ovary; Z82.3 Family history of stroke; K21.9 Gastro-esophageal reflux disease without esophagitis; Z90.710 Acquired absence of both cervix and uterus; Z90.722 Acquired absence of ovaries, bilateral; I12.9 Hypertensive chronic kidney disease with stage 1 through stage 4 chronic kidney disease, or unspecified chronic kidney disease; Z79.890 Hormone replacement therapy; S88.112S Complete traumatic amputation at level between knee and ankle, left lower leg, sequela; M79.89 Other specified soft tissue disorders; Z90.79 Acquired absence of other genital organ(s); T81.31XD Disruption of external operation (surgical) wound, not elsewhere classified, subsequent encounter; R53.81 Other malaise
CPT/HCPCS: 11042

== ENCOUNTER → 2024-05-18 | Outpatient (CLI) | payer OTHER, SELFPAY ==
[2024-05-18 13:13] LABS: Absolute Lymphocyte Count 1.44 X10^3/uL (0.83-4.51); Absolute Neutrophil Count 5.3 X10^3/uL (2.0-7.7); Basophil# 0.04 X10^3/uL; Basophil% 0.5 % (0-1); Eosinophils% 2.7 % (0-5); Hematocrit 36.8 % (37-47); Hemoglobin 11.8 g/dL (12.0-15.0); Lymphocyte # 1.44 X10^3/ul (0.83-4.51); Lymphocyte % 19.3 % (19-41); Mean Corp Hgb Conc 32.1 g/dL (32-36); Mean Corpuscular Hgb 29.3 pg (27.0-32.0); Mean Corpuscular Volume 91.3 fL (81-99); Mean Platelet Vol. 9.9 fl (6.2-12.0); Monocyte# 0.49 X10^3/uL; Monocyte% 6.6 % (0-10); NRBC Flagged by Analyzer 0 % (0-5); Neutrophil # 5.25 X10^3/uL (2.7-7.7); Neutrophil % 70.2 % (47-70); Platelet Count 165 K/mm3 (150-450); RBC Distribution Width CV 14.2 % (11.6-14.6); RBC Distribution Width SD 47.6 fl (35.1-43.9); Red Blood Count 4.03 M/mm3 (4.2-5.4); White Blood Count 7.5 K/mm3 (4.4-11.0)
[2024-05-18 18:28] LABS: AST(SGOT) 29 U/L (15-37); Alanine Aminotransfer ALT/SGPT 40 U/L (13-56); Albumin, Serum 3.5 g/dL (3.2-5.0); Alkaline Phosphatase 129 U/L (45-117); Anion Gap 7 (5-15); BUN 21 mg/dL (7-18); BUN/Creat Ratio 23.3 RATIO (10-20); Calcium,Total 8.9 mg/dL (8.5-10.1); Chloride 106 mmol/L (98-107); EST Glomerular Filtration Rate 67 mL/min (>60); Est Glom Filt Rate - Afr Amer 81 mL/min (>60); Globulin 3.4 g/dL (2.2-4.2); Glucose 199 mg/dL (74-106); Potassium 3.7 mmol/L (3.5-5.1); Protein, Total 6.9 g/dL (6.4-8.2); Sodium Level 139 mmol/L (136-145); Thyroid Stim Hormone (TSH) 0.057 uIU/mL (0.358-3.740)
[2024-05-19 02:10] LABS: Vitamin D,25 Hydroxy 29.4 ng/mL
--- NOTE | 2024-05-23 12:18 | WC ---
Elisabet called and stated that over the weekend, she burned herself on her stomach causing a softball size burn with pale skin. She is scheduled to see Dr Alfonso on thursday05/24/24 but wanted some ideas on how to dress this burn until then. Called patient back and asked if she had any SSD cream at home which she does that was prescribed by Dr Alfonso from previous months. Advised her to wash her burn with soap and water, rinse well and to apply thin layer to burn and cover with dry gauze. Patient verbalized understanding. Will take a look at area at her next wound visit. Also spoke to andrew Mayorga at [facility] clarifying the need for EPicord and Epifix. Questions asked and Tierra will wrap up the authorization for the skin sub. Her contact number is [phone].
== END | disposition home or self-care (01) ==
LOC: VSLAB 12:44
PROVIDERS: PCP Nurse Practitioner Family; Visit Provider Nurse Practitioner Family
DX: E11.9 Type 2 diabetes mellitus without complications (principal); E03.9 Hypothyroidism, unspecified; E56.9 Vitamin deficiency, unspecified
CPT/HCPCS: 36415; 80053; 82306; 84439; 84443; 85025

== ENCOUNTER 2024-05-24 15:15 | Outpatient (RCR) | payer OTHER, SELFPAY ==
[2024-04-26 00:14] VITALS: BP 106/40; PULSE 74; RESP 18; TEMP 35.9; BMI 54.1
[2024-04-26 15:04] VITALS: BP 148/80; PULSE 104; RESP 18; TEMP 36.3; BMI 54.1
--- NOTE | 2024-04-27 11:33 | WC ---
PHOTO LEFT BREAST 04/26/2024
--- NOTE | 2024-04-27 15:02 | PCM.WC.HP ---
History of Present Illness Date of Service: 04/26/24 Chief Complaint: Surgical wound dehiscence of the right below-knee amputation stump incision History of Wound: This is a 63-year-old morbidly obese female with multiple pre-existing medical conditions. She is a longstanding diabetic and has been poorly controlled. She suffers from diabetic peripheral neuropathy. She developed a right Charcot foot deformity, with collapse of her right arch. Her condition resulted in a right below-knee amputation which was performed at [facility] by Dr. Narayan on October 19, 2023. The patient had a relatively uncomplicated postoperative course. She was transferred to the [facility] rehabilitation unit, where she continued to convalesce for several weeks. Several weeks postoperatively, Dr. Damon's staff removed the patient's surgical luisana, and the patient subsequently developed a dehiscence. She was referred to the [facility] for management of her right below-knee amputation stump incisional dehiscence. The patient had been using Neosporin and gauze topically. She had also been using a Coban wrap and has been fitted with a stump customer resolution specialist by [employer]. The patient's multiple pre-existing medical conditions are listed elsewhere. Of note, she underwent right breast needle biopsy on November 26, 2023, which was indicative of invasive ductal carcinoma. She is under the care of other providers for management of this recent diagnosis, including her surgeon, Dr. Knapp. On March 15, 2024, the patient underwent right mastectomy with sentinel lymph node biopsy. The patient is in the recovery phase from her recent mastectomy, and has experienced a surgical wound dehiscence of her mastectomy incision, for which she is seeking evaluation and management, in addition to management of her healing right BKA stump incision. [facility] Medical History Dehiscence of incision Invasive ductal carcinoma of right breast in female GERD (gastroesophageal reflux disease) Hyperlipidemia Tinea cruris Non-pressure chronic ulcer of right calf with fat layer exposed Wears glasses Post-menopausal Cancer Anxiety Open wound Thyroid disease Insulin dependent diabetes mellitus Uses wheelchair Fatty liver High cholesterol Dietary restriction Non-smoker History of edema History of echocardiogram History of stress test Cardiology follow-up encounter Surgical wound dehiscence Right leg swelling History of endometrial cancer Rheumatoid arthritis Diverticulosis Chronic renal failure, stage 3 (moderate) Pulmonary hypertension GERD (gastroesophageal reflux disease) Hyperlipidemia History of kidney stones Breast cancer in female Morbid obesity with BMI of 50.0-59.9, adult Hydronephrosis Ureteral calculus Charcot ankle Diabetic neuropathy Morbid obesity with BMI of 50.0-59.9, adult Diverticulosis Diabetes mellitus, type 2 Chronic renal failure (CRF), stage 3a Anemia Rheumatoid arthritis Chronic pain CPAP (continuous positive airway pressure) dependence Pulmonary hypertension BRITT (obstructive sleep apnea) Thyromegaly Hx of supraventricular tachycardia Nephrolithiasis Rosacea Fatty liver External hemorrhoid GERD without esophagitis Benign essential HTN Bilateral carpal tunnel syndrome Hyperlipidemia Low vitamin B12 level Multinodular goiter Tubular adenoma Adenocarcinoma of endometrium Home Medications ?Medication ?Instructions ?Recorded ?Last Taken ?Type aspirin 81 mg tablet,delayed 81 mg PO DAILY Heart health 01/11/16 03/06/24 History release cetirizine 10 mg capsule 10 mg PO DAILY Allergies 01/11/16 03/15/24 History metoprolol succinate 100 mg 100 mg PO DAILY BP 01/11/16 03/15/24 History tablet,extended release 24 hr multivitamin 1 ea PO DAILY Supplement 01/11/16 03/14/24 History omeprazole 40 mg capsule,delayed 40 mg PO DAILY GERD 01/11/16 03/15/24 History release simvastatin 20 mg tablet 20 mg PO QHS Cholestrol 01/11/16 03/14/24 History cyanocobalamin (vitamin B-12) 1,000 mcg PO DAILY Supplement 07/02/17 03/14/24 History 1,000 mcg sublingual tablet hydroxychloroquine 200 mg tablet 200 mg PO BID Platelets 04/28/18 03/14/24 History (Plaquenil) pregabalin 150 mg capsule (Lyrica) 150 mg PO QHS NERVE PAIN 06/14/18 03/15/24 History ferrous sulfate 325 mg (65 mg 325 mg PO DAILY supplement 04/25/20 03/14/24 History iron) tablet (Feosol) allopurinol 100 mg tablet 100 mg PO DAILY #30 tabs 11/18/23 03/14/24 Rx ascorbic acid (vitamin C) 500 mg 1,000 mg (2 x 500 mg) PO DAILY #30 11/18/23 03/14/24 Rx tablet tabs calcium carbonate (Oyster Shell 500 mg PO BREAKFAST #30 tabs 11/18/23 03/14/24 Rx Calcium 500) blood sugar diagnostic (OneTouch #100 ea 12/03/23 Unknown Rx Ultra Test strips) losartan 50 mg tablet (Cozaar) 50 mg PO DAILY #90 tabs 12/03/23 03/15/24 Rx OneTouch Delica Plus Lancet 33 #100 ea 12/04/23 Unknown Rx gauge (lancets) blood sugar diagnostic (OneTouch #100 ea 12/04/23 Unknown Rx Ultra Test strips) buspirone 5 mg tablet 5 mg PO TID #90 tabs 12/11/23 03/15/24 Rx alprazolam 0.5 mg tablet (Xanax) 0.5 mg PO TID PRN PRN panic attack 12/25/23 12/07/23 History fiber 1 cap PO DAILY 12/25/23 03/14/24 History oxycodone 5 mg capsule 5 mg PO Q6H PRN PRN pain 12/25/23 12/21/23 History anastrozole 1 mg tablet (Arimidex) 1 mg PO DAILY #90 tabs 02/24/24 03/15/24 Rx escitalopram oxalate 10 mg tablet 10 mg PO DAILY 03/03/24 03/14/24 History insulin regular hum U-500 conc 500 15 unit subcut LUNCH 03/04/24 03/14/24 History unit/mL(3 mL) subcut pen insulin regular hum U-500 conc 500 35 unit subcut DINNER 03/04/24 03/14/24 History unit/mL(3 mL) subcut pen insulin regular hum U-500 conc 500 35 unit subcut QHS 03/04/24 03/14/24 History unit/mL(3 mL) subcut pen insulin regular hum U-500 conc 500 175 unit subcut BREAKFAST Blood 03/04/24 03/15/24 History unit/mL(3 mL) subcut pen sugar levothyroxine 300 mcg tablet 300 mcg PO DAILY 03/04/24 03/15/24 History levothyroxine 300 mcg tablet 600 mcg PO GALARZA 03/04/24 03/13/24 History semaglutide 2 mg/dose (8 mg/3 mL) 1 mg subcut TH 03/04/24 02/25/24 History subcutaneous pen injector (Ozempic) insulin lispro 100 unit/mL 3 unit subcut TID PRN BLOOD SUGARS 03/15/24 Unknown History subcutaneous pen insulin lispro 100 unit/mL See Protocol subcut DAILY PRN 03/15/24 03/13/24 History subcutaneous pen elevated BS pregabalin 100 mg capsule (Lyrica) 100 mg PO BID NERVE PAIN 03/15/24 03/15/24 History acetaminophen 325 mg tablet 650 mg (2 x 325 mg) PO Q6H PRN PRN 03/16/24 Unknown Rx Pain Score 1-10 #0 tabs doxycycline hyclate 100 mg capsule 100 mg PO BID #10 caps 04/15/24 Unknown Rx blood-glucose sensor (Dexcom G7 #3 ea 04/21/24 Unknown Rx Sensor device) silver sulfadiazine 1 % topical 1 applic topical BID #25 grams 04/21/24 Unknown Rx cream (Silvadene) Allergy/AdvReac Type Severity Reaction Status Date / Time No Known Allergies Allergy Verified 04/26/24 14:03 Family History Mother Ovarian cancer Hypertension Arthritis Uterine cancer Fibrocystic disease of breast Hypothyroid Father , Age 86-CHF Hypertension Arthritis Diverticulitis of colon Depression CAD (coronary artery disease) Sister Hypertension Depression CVA (cerebral vascular accident) Fibrocystic disease of breast Diabetes Bleeding disorder Portal hypertension Surgical History Status post right mastectomy History of cardiac catheterization Hx of cystoscopy Hx of total thyroidectomy History of tonsillectomy History of carpal tunnel release History of cardiac radiofrequency ablation History of total abdominal hysterectomy and bilateral salpingo-oophorectomy History of below-knee amputation S/P cystoscopy with ureteral stent placement History of right below knee amputation History of hand surgery H/O cardiac radiofrequency ablation (02/15/13) History of right and left heart catheterization (07/03/17) H/O colonoscopy H/O abdominal hysterectomy H/O carpal tunnel repair Previous section History of tonsillectomy Hx of cholecystectomy Surgical menopause Social History Smoking Status: Never smoker second hand exposure: No alcohol intake: never substance use type: does not use caffeine: No Vital Signs Vital Signs Vital Signs: 04/26/24 15:04 Temperature 97.3 F L Temperature Source Temporal Pulse Rate 104 H Respiratory Rate 18 Blood Pressure 148/80 H Blood Pressure Mean 102 Blood Pressure Source Monitor Blood Pressure Position Semi-Fowlers Blood Pressure Location Left Arm Weight Weight: 335 lb Body Mass Index (BMI) 54.1 Physical Exam Const alert, oriented x3, no apparent distress, no limitations, healthy appearing and well nourished General Appearance: cooperative, comfortable, well kempt and well developed Orientation / Consciousness: awake, oriented to person, oriented to place and oriented to time Exam Limitations: no limitations Nutritional Appearance: overweight HEENT normocephalic and head/scalp atraumatic Head and Scalp: normal to inspection Face and Sinus: normal facial exam Nose: external nose normal External Ear: external ears normal Eyes EOMs intact bilaterally Neck full ROM Resp normal respiratory effort, normal air movement, no retractions and no use of accessory muscles Effort and Inspection: able to speak in complete sentences and symmetric chest movement Skin Wound Narrative: A right below-knee amputation is noted. The dehiscent wound on the right below-knee amputation incision persists, though it continues to decrease in size significantly. It is now quite small. Dimensions are documented elsewhere. The wound is pink and healthy in appearance, with active granulation tissue evident. There is a small amount of bioburden. The wound continues to diminish in size by means of peripheral epithelialization. There is no sign of infection or cellulitis. There is no significant periwound erythema. With respect to the patient's recent mastectomy, performed on March 15, 2024, she has experienced a surgical wound dehiscence. A horizontal mastectomy incision is noted. The medial portion of the incision appears to be well-approximated and healing relatively normally. The lateral portion of the incision is dehiscent, with extension into the subcutaneous tissues. There is no sign of infection or cellulitis. A suture is visible, which has been excised. There is a small amount of bioburden and nonviable tissue. The dimensions of the mastectomy incisional dehiscence are documented elsewhere. A former Ney-Mckeon drain site appears to be healing well. Hair: normal Neuro oriented x3, CN's II-XII intact bilaterally, moves all extremities, no focal motor deficits and no sensory deficits noted Sensorium / Orientation: awake, alert, oriented to person, oriented to place and oriented to time Debridement Note Debridement Note Wound debrided: Dehiscent right below-knee amputation stump incision Laterality: Right Type of Debridement: Excisional debridement Anesthesia Used: 5% Lidocaine Gel Depth: Down to and including healthy tissue and in the subcutaneous layer Percentage of wound debrided: 100 Instrument Used: 3mm curette Tissue Removed: Bioburden Severity: Fat Layer Exposed Amount of bleeding with debridement: Mild Bleeding Controlled with: Compression and gauze Patient tolerated procedure: Patient tolerated procedure well Post-Debridement Measurements and Additional Note: Post-Debridement Measurements/Treatment JIA - Nurse 1 - General Ulcer Assessment Start: 04/26/24 15:03 Freq: Status: Active Protocol: MATT Activity Type Activity Date Activity User E-sign Co-sign Detail Recorded Client Recorded Date Recorded By Document 04/26/24 15:04 SHANIA [id number] 04/26/24 15:07 RB 04/26/24 15:04 JIA - Today's Visit Information Type of service Follow-up Visit (Physician/PROGRAM PROJECT MANAGER ) Arrival Mode Wheelchair Transfer Assistance Manual Patient Identification Verified (Name & Yes ) Patient Requires Transmission-Based No Precautions Height and Weight Body Mass Index (BMI) 54.1 BMI Classification Obese Vital Signs Temperature (97.8 F-99.1 F) 97.3 F L Temperature Source Temporal Pulse Rate (60-100) 104 H Pulse Location Monitor Respiratory Rate (12-18) 18 Respiratory rate source Observation Blood Pressure (90/60-120/80) 148/80 H Blood Pressure Mean 102 Source Monitor Position Semi-Fowlers Blood Pressure Location Left Arm History Since Last Visit- (Skip if this is Patient's initial visit) Have you changed medications since your No last visit? Any new allergies or adverse reactions No Had a fall/change in ADL's that may No increase risk of falls Signs or symptoms of abuse and/or No neglect since last visit Have you been in the hospital since your No last visit? Has dressing in place as prescribed Yes Has compression in place as prescribed No Has offloadiing in place as prescribed No Experienced any changes in pain level or No management Pain Scale: 0-10 Numeric Is Patient Pain Free? Yes JIA Linda Nurse 1 - General Ulcer Measurement Start: 04/26/24 15:03 Freq: Status: Active Protocol: Activity Type Activity Date Activity User E-sign Co-sign Detail Recorded Client Recorded Date Recorded By Document 04/26/24 15:04 SHANIA [id number] 04/26/24 15:07 RB 04/26/24 15:04 Wound Center Nurse 1 #1 RT superior stump -Combined with other wound No -Current Size (cm) - Length 0.1 -Current Size (cm) - Width 0.1 -Current Size (cm) - Depth 0.1 -Total Square Cm 0.01 -Photo Taken Yes -Tunneling No -Undermining/Tunneling No -Circular Undermining No -Exudate Amt Medium -Exudate Type Serosanguineous -Wound Margin Distinct, Outline Attached -Granulation Amt Medium (34-66%) -Granulation Quality Tavernier -Slough/Fibrin Yes -Necrosis Amt Medium (34-66%) -Necrotic Tissue Type Adherent Slough -Structure Exposed N/A -Texture (Fadumo-wound Skin Appearance) Assessed, Scarring -Moisture (Fadumo-wound Skin Appearance) Assessed -Color (Fadumo-wound Skin Appearance) Assessed -Temperature (Fadumo-wound Skin No Abnormality Appearance) (Pt Warm) -Tenderness on Palpation (Fadumo-wound No Skin Appearance) -Ulcer Cleansing Wound Cleanser -Foul Odor after Cleansing No -Anesthetic Used 5% Lidocaine Gel WC - Nurse 2 - General Ulcer CM Notes Start: 04/26/24 15:03 Freq: Status: Active Protocol: Activity Type Activity Date Activity User E-sign Co-sign Detail Recorded Client Recorded Date Recorded By Document 04/26/24 15:32 DS [id number] 04/26/24 15:42 DS Edit Result 04/26/24 15:32 DS (1) [id number] 04/27/24 13:29 DS (1) #3 right chest surgical incision - Debridement - Subq, 1st 20sq cm Yes => No 04/26/24 15:32 Wound Center Nurse 2 #3 right chest surgical incision -Time 15:36 -Correct Patient Yes -Correct Side, Site, Position Yes -Correct Procedure Yes -Procedure Performed Yes -Type of Procedure Debridement -Clinical Debridement Subcutaneous -Tissue Removed Subcutaneous -Post Debridement (cm) - Length 1.2 -Post Debridement (cm) - Width 7.4 -Post Debridement (cm) - Depth 0.5 -Total Square (Post) (cm) 8.88 -Area of Debridement (cm) - Length 1.2 -Area of Debridement (cm) - Width 7.4 -Total Square (Area) (cm) 8.88 -Tunneling No -Undermining/Tunneling No -Circular Undermining No -Wound/Ulcer Outcome Not Healed -Ulcer Cleansing Rinsed/ Irrigated with Saline -Bioengineered Tissue No -Bleeding Controlled with Pressure -Treatment Response Procedure Tolerated Well -Debridement - Subq, 1st 20sq cm No #1 RT superior stump -Time 15:33 -Correct Patient Yes -Correct Side, Site, Position Yes -Correct Procedure Yes -Procedure Performed Yes -Type of Procedure Debridement -Clinical Debridement Subcutaneous -Tissue Removed Subcutaneous -Post Debridement (cm) - Length 0.5 -Post Debridement (cm) - Width 0.3 -Post Debridement (cm) - Depth 0.1 -Total Square (Post) (cm) 0.15 -Area of Debridement (cm) - Length 0.5 -Area of Debridement (cm) - Width 0.3 -Total Square (Area) (cm) 0.15 -Tunneling No -Undermining/Tunneling No -Circular Undermining No -Wound/Ulcer Outcome Not Healed -Ulcer Cleansing Rinsed/ Irrigated with Saline -Bioengineered Tissue No -Bleeding Controlled with Pressure -Treatment Response Procedure Tolerated Well -Debridement - Subq, 1st 20sq cm Yes Pain Scale: 0-10 Numeric Is Patient Pain Free? Yes - Nurse 3 - General Ulcer D/C NN Start: 04/26/24 15:03 Freq: Status: Active Protocol: Activity Type Activity Date Activity User E-sign Co-sign Detail Recorded Client Recorded Date Recorded By Document 04/26/24 16:03 RB [id number] 04/26/24 16:05 RB 04/26/24 16:03 Wound Care Center Nurse 3 #3 right chest surgical incision -Ulcer Cleansing Rinsed/ Irrigated with Saline -Primary Dressing Applied C Hydrogel ($), Mepilex Border -Mepilex Border 1 #1 RT superior stump -Other Dressing hydrogel / gauze -Primary Dressing Covered/Secured with Dry Gauze Right -Other justin Treatment Response Procedure Tolerated Well Pain Scale: 0-10 Numeric Is Patient Pain Free? Yes - Visit Discharge Discharge Condition Stable Ambulatory Status Wheelchair Transportation Private Auto Medication Reconcilliation completed & No provided to patient/care provider Clinical Summary of Care Provided Yes Additional Wound Wound debrided: Dehiscent right mastectomy incision Laterality: Right Type of Debridement: Excisional debridement Anesthesia Used: 5% Lidocaine Gel Depth: Down to and including healthy tissue and in the subcutaneous layer Percentage of wound debrided: 100 Instrument Used: 3mm curette Tissue Removed: Bioburden and nonviable tissue, surgical suture Severity: Fat Layer Exposed Amount of bleeding with debridement: Mild Bleeding Controlled with: Compression and gauze Patient tolerated procedure: Patient tolerated procedure well Charges/Coding Multi Select Codes Visit Charges Office Visit/Consults: 64716 OV L3 Est 20min Integumentary Integumentary CPT Codes: 58256 Padmini subq tissue 20 sq cm/< (52260 - Right Leg; 47398 - Right Chest (mastectomy dehiscence)) Assessment/Plan Assessment/Plan (1) Dehiscence of incision: CODE(S): T81.31XA - Disruption of external operation (surgical) wound, not elsewhere classified, initial encounter QUALIFIERS: Encounter type: initial encounter Qualified Code(s): T81.31XA - Disruption of external operation (surgical) wound, not elsewhere classified, initial encounter (2) Non-pressure chronic ulcer of right calf with fat layer exposed: CODE(S): L97.212 - Non-pressure chronic ulcer of right calf with fat layer exposed (3) Surgical wound dehiscence: CODE(S): T81.31XA - Disruption of external operation (surgical) wound, not elsewhere classified, initial encounter QUALIFIERS: Encounter type: subsequent encounter Qualified Code(s): T81.31XD - Disruption of external operation (surgical) wound, not elsewhere classified, subsequent encounter (4) History of right below knee amputation: CODE(S): Z89.511 - Acquired absence of right leg below knee (5) Morbid obesity with BMI of 50.0-59.9, adult: CODE(S): E66.01 - Morbid (severe) obesity due to excess calories; Z68.43 - Body mass index [BMI] 50.0-59.9, adult (6) Diabetes mellitus, type 2: CODE(S): E11.9 - Type 2 diabetes mellitus without complications QUALIFIERS: Diabetes mellitus [facility] insulin use: with termite control service representative use Diabetes mellitus complication status: with kidney complications Diabetes mellitus complication detail: with chronic kidney disease Chronic kidney disease stage: stage 3 (moderate) Chronic kidney disease stage 3 subtype: stage 3a (GFR 45-59) Qualified Code(s): E11.22 - Type 2 diabetes mellitus with diabetic chronic kidney disease; N18.31 - Chronic kidney disease, stage 3a; 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 (7) Below knee amputation: CODE(S): S88.119A - 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, unspecified lower leg, initial encounter QUALIFIERS: Encounter type: sequela Laterality: bilateral Qualified Code(s): S88.111S - 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, right lower leg, sequela; S88.112S - 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, left lower leg, sequela (8) Hypothyroid: CODE(S): E03.9 - Hypothyroidism, unspecified QUALIFIERS: Hypothyroidism type: acquired Qualified Code(s): E03.9 - Hypothyroidism, unspecified (9) Benign essential HTN: CODE(S): I10 - Essential (primary) hypertension (10) Breast cancer in female: CODE(S): C50.919 - Malignant neoplasm of unspecified site of unspecified female breast QUALIFIERS: Breast location: unspecified site of breast Estrogen receptor status: positive Laterality: right Qualified Code(s): C50.911 - Malignant neoplasm of unspecified site of right female breast; Z17.0 - Estrogen receptor positive status [ER+] (11) Physical debility: CODE(S): R53.81 - Other malaise (12) Right leg swelling: CODE(S): M79.89 - Other specified soft tissue disorders (13) Hyperlipidemia: CODE(S): E78.5 - Hyperlipidemia, unspecified (14) GERD (gastroesophageal reflux disease): CODE(S): K21.9 - Gastro-esophageal reflux disease without esophagitis (15) History of below-knee amputation: CODE(S): Z89.519 - Acquired absence of unspecified leg below knee QUALIFIERS: Laterality: right Qualified Code(s): Z89.511 - Acquired absence of right leg below knee (16) History of total abdominal hysterectomy and bilateral salpingo-oophorectomy: CODE(S): Z90.710 - Acquired absence of both cervix and uterus; Z90.722 - Acquired absence of ovaries, bilateral; Z90.79 - Acquired absence of other genital organ(s) (17) History of cardiac radiofrequency ablation: CODE(S): Z98.890 - Other specified postprocedural states (18) History of carpal tunnel release: CODE(S): Z98.890 - Other specified postprocedural states (19) Hx of cholecystectomy: CODE(S): Z98.890 - Other specified postprocedural states; Z90.49 - Acquired absence of other specified parts of digestive tract (20) History of tonsillectomy: CODE(S): Z90.89 - Acquired absence of other organs (21) BRITT (obstructive sleep apnea): CODE(S): G47.33 - Obstructive sleep apnea (adult) (pediatric) (22) Diabetic neuropathy: CODE(S): E11.40 - Type 2 diabetes mellitus with diabetic neuropathy, unspecified QUALIFIERS: Diabetes mellitus type: type 2 Diabetes mellitus complication detail: diabetic polyneuropathy Qualified Code(s): E11.42 - Type 2 diabetes mellitus with diabetic polyneuropathy (23) Rheumatoid arthritis: CODE(S): M06.9 - Rheumatoid arthritis, unspecified (24) Pulmonary hypertension: CODE(S): I27.20 - Pulmonary hypertension, unspecified PLAN: Plan This is a 63-year-old female with multiple pre-existing medical problems, who presented with a 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 The right below-knee amputation was performed on October 19, 2023, at [facility]. Upon removal of her surgical luisana several weeks postoperatively, she developed a surgical wound dehiscence and was referred to the [facility] for definitive management. Measures have been implemented to minimize swelling in her right lower extremity, and have included leg elevation and sleeping on a flat mattress at night. As of today, the patient's dehiscent wound continues to decrease in size. It appears pink and healthy in appearance, with active granulation tissue. To date, 6 TheraSkin allograft applications have been applied. The wound is now quite small, and we are to implement the use of collagen hydrogel topically, which will be applied on a daily basis. The patient has been instructed in appropriate means of application. The patient has been evaluated also today with regard to a dehiscent right mastectomy incision. An excisional debridement has been performed. We are to implement the use of collagen hydrogel topically to the dehiscent portion of her mastectomy incision, which will be applied topically on a daily basis. The patient has been encouraged to optimize her nutritional intake and assure good control of her diabetes mellitus. She indicates that she continues to take a nutritional supplement on a regular basis. The patient has recently met with her oncologist, who has indicated that chemotherapy may be appropriate for her in the coming months. Wound healing as a prelude to chemotherapy is preferred. The patient is to return to the Wound Center in 1 week for [email or web address] Total time: 26 minutes
[2024-05-03 15:01] VITALS: BP 151/40; PULSE 82; RESP 18; TEMP 36.6; BMI 54.1
--- NOTE | 2024-05-03 16:37 | PCM.WC.HP ---
History of Present Illness Date of Service: 05/03/24 Chief Complaint: Surgical wound dehiscence of the right below-knee amputation stump incision History of Wound: This is a 63-year-old morbidly obese female with multiple pre-existing medical conditions. She is a longstanding diabetic and has been poorly controlled. She suffers from diabetic peripheral neuropathy. She developed a right Charcot foot deformity, with collapse of her right arch. Her condition resulted in a right below-knee amputation which was performed at [facility] by Dr. Narayan on October 19, 2023. The patient had a relatively uncomplicated postoperative course. She was transferred to the [facility] rehabilitation unit, where she continued to convalesce for several weeks. Several weeks postoperatively, Dr. Damon's staff removed the patient's surgical luisana, and the patient subsequently developed a dehiscence. She was referred to the [facility] for management of her right below-knee amputation stump incisional dehiscence. The patient had been using Neosporin and gauze topically. She had also been using a Coban wrap and has been fitted with a stump trading specialist by [facility]. The patient's multiple pre-existing medical conditions are listed elsewhere. Of note, she underwent right breast needle biopsy on November 26, 2023, which was indicative of invasive ductal carcinoma. She is under the care of other providers for management of this recent diagnosis, including her surgeon, Dr. Knapp. On March 15, 2024, the patient underwent right mastectomy with sentinel lymph node biopsy. The patient is in the recovery phase from her recent mastectomy, and has experienced a surgical wound dehiscence of her mastectomy incision, for which she is seeking evaluation and management, in addition to management of her healing right BKA stump incision. [facility] Medical History (Updated 05/03/24 @ 17:[address] Malvin Alfonso MD) Dehiscence of incision Invasive ductal carcinoma of right breast in female GERD (gastroesophageal reflux disease) Hyperlipidemia Tinea cruris Non-pressure chronic ulcer of right calf with fat layer exposed Wears glasses Post-menopausal Cancer Anxiety Open wound Thyroid disease Insulin dependent diabetes mellitus Uses wheelchair Fatty liver High cholesterol Dietary restriction Non-smoker History of edema History of echocardiogram History of stress test Cardiology follow-up encounter Surgical wound dehiscence Right leg swelling History of endometrial cancer Rheumatoid arthritis Diverticulosis Chronic renal failure, stage 3 (moderate) Pulmonary hypertension GERD (gastroesophageal reflux disease) Hyperlipidemia History of kidney stones Breast cancer in female Morbid obesity with BMI of 50.0-59.9, adult Hydronephrosis Ureteral calculus Charcot ankle Diabetic neuropathy Morbid obesity with BMI of 50.0-59.9, adult Diverticulosis Diabetes mellitus, type 2 Chronic renal failure (CRF), stage 3a Anemia Rheumatoid arthritis Chronic pain CPAP (continuous positive airway pressure) dependence Pulmonary hypertension BRITT (obstructive sleep apnea) Thyromegaly Hx of supraventricular tachycardia Nephrolithiasis Rosacea Fatty liver External hemorrhoid GERD without esophagitis Benign essential HTN Bilateral carpal tunnel syndrome Hyperlipidemia Low vitamin B12 level Multinodular goiter Tubular adenoma Adenocarcinoma of endometrium Home Medications ?Medication ?Instructions ?Recorded ?Last Taken ?Type aspirin 81 mg tablet,delayed 81 mg PO DAILY Heart health 01/11/16 03/06/24 History release cetirizine 10 mg capsule 10 mg PO DAILY Allergies 01/11/16 03/15/24 History metoprolol succinate 100 mg 100 mg PO DAILY BP 01/11/16 03/15/24 History tablet,extended release 24 hr multivitamin 1 ea PO DAILY Supplement 01/11/16 03/14/24 History omeprazole 40 mg capsule,delayed 40 mg PO DAILY GERD 01/11/16 03/15/24 History release simvastatin 20 mg tablet 20 mg PO QHS Cholestrol 01/11/16 03/14/24 History cyanocobalamin (vitamin B-12) 1,000 mcg PO DAILY Supplement 07/02/17 03/14/24 History 1,000 mcg sublingual tablet hydroxychloroquine 200 mg tablet 200 mg PO BID Platelets 04/28/18 03/14/24 History (Plaquenil) pregabalin 150 mg capsule (Lyrica) 150 mg PO QHS NERVE PAIN 06/14/18 03/15/24 History ferrous sulfate 325 mg (65 mg 325 mg PO DAILY supplement 04/25/20 03/14/24 History iron) tablet (Feosol) allopurinol 100 mg tablet 100 mg PO DAILY #30 tabs 11/18/23 03/14/24 Rx ascorbic acid (vitamin C) 500 mg 1,000 mg (2 x 500 mg) PO DAILY #30 11/18/23 03/14/24 Rx tablet tabs calcium carbonate (Oyster Shell 500 mg PO BREAKFAST #30 tabs 11/18/23 03/14/24 Rx Calcium 500) blood sugar diagnostic (OneTouch #100 ea 12/03/23 Unknown Rx Ultra Test strips) OneTouch Delica Plus Lancet 33 #100 ea 12/04/23 Unknown Rx gauge (lancets) blood sugar diagnostic (OneTouch #100 ea 12/04/23 Unknown Rx Ultra Test strips) buspirone 5 mg tablet 5 mg PO TID #90 tabs 12/11/23 03/15/24 Rx alprazolam 0.5 mg tablet (Xanax) 0.5 mg PO TID PRN PRN panic attack 12/25/23 12/07/23 History fiber 1 cap PO DAILY 12/25/23 03/14/24 History oxycodone 5 mg capsule 5 mg PO Q6H PRN PRN pain 12/25/23 12/21/23 History anastrozole 1 mg tablet (Arimidex) 1 mg PO DAILY #90 tabs 02/24/24 03/15/24 Rx escitalopram oxalate 10 mg tablet 10 mg PO DAILY 03/03/24 03/14/24 History insulin regular hum U-500 conc 500 15 unit subcut LUNCH 03/04/24 03/14/24 History unit/mL(3 mL) subcut pen insulin regular hum U-500 conc 500 35 unit subcut DINNER 03/04/24 03/14/24 History unit/mL(3 mL) subcut pen insulin regular hum U-500 conc 500 35 unit subcut QHS 03/04/24 03/14/24 History unit/mL(3 mL) subcut pen insulin regular hum U-500 conc 500 175 unit subcut BREAKFAST Blood 03/04/24 03/15/24 History unit/mL(3 mL) subcut pen sugar levothyroxine 300 mcg tablet 300 mcg PO DAILY 03/04/24 03/15/24 History levothyroxine 300 mcg tablet 600 mcg PO GALARZA 03/04/24 03/13/24 History semaglutide 2 mg/dose (8 mg/3 mL) 1 mg subcut TH 03/04/24 02/25/24 History subcutaneous pen injector (Ozempic) insulin lispro 100 unit/mL 3 unit subcut TID PRN BLOOD SUGARS 03/15/24 Unknown History subcutaneous pen insulin lispro 100 unit/mL See Protocol subcut DAILY PRN 03/15/24 03/13/24 History subcutaneous pen elevated BS pregabalin 100 mg capsule (Lyrica) 100 mg PO BID NERVE PAIN 03/15/24 03/15/24 History acetaminophen 325 mg tablet 650 mg (2 x 325 mg) PO Q6H PRN PRN 03/16/24 Unknown Rx Pain Score 1-10 #0 tabs doxycycline hyclate 100 mg capsule 100 mg PO BID #10 caps 04/15/24 Unknown Rx blood-glucose sensor (Dexcom G7 #3 ea 04/21/24 Unknown Rx Sensor device) silver sulfadiazine 1 % topical 1 applic topical BID #25 grams 04/21/24 Unknown Rx cream (Silvadene) losartan 50 mg tablet (Cozaar) 50 mg PO DAILY #90 tabs 04/27/24 Unknown Rx Allergy/AdvReac Type Severity Reaction Status Date / Time No Known Allergies Allergy Verified 04/26/24 14:03 Family History Mother Ovarian cancer Hypertension Arthritis Uterine cancer Fibrocystic disease of breast Hypothyroid Father , Age 86-CHF Hypertension Arthritis Diverticulitis of colon Depression CAD (coronary artery disease) Sister Hypertension Depression CVA (cerebral vascular accident) Fibrocystic disease of breast Diabetes Bleeding disorder Portal hypertension Surgical History (Updated 05/03/24 @ 17:[address] Malvin Alfonso MD) History of right mastectomy Status post right mastectomy History of cardiac catheterization Hx of cystoscopy Hx of total thyroidectomy History of tonsillectomy History of carpal tunnel release History of cardiac radiofrequency ablation History of total abdominal hysterectomy and bilateral salpingo-oophorectomy History of below-knee amputation S/P cystoscopy with ureteral stent placement History of right below knee amputation History of hand surgery H/O cardiac radiofrequency ablation (02/15/13) History of right and left heart catheterization (07/03/17) H/O colonoscopy H/O abdominal hysterectomy H/O carpal tunnel repair Previous section History of tonsillectomy Hx of cholecystectomy Surgical menopause Social History Smoking Status: Never smoker second hand exposure: No alcohol intake: never substance use type: does not use caffeine: No Vital Signs Vital Signs Vital Signs: 05/03/24 15:01 Temperature 97.8 F Temperature Source Temporal Pulse Rate 82 Respiratory Rate 18 Blood Pressure 151/40 H Blood Pressure Mean 77 Blood Pressure Source Monitor Blood Pressure Position Sitting Blood Pressure Location Left Arm Oxygen Delivery Method Room Air Weight Weight: 335 lb Body Mass Index (BMI) 54.1 Physical Exam Const alert, oriented x3, no apparent distress, no limitations, healthy appearing and well nourished General Appearance: cooperative, comfortable, well kempt and well developed Orientation / Consciousness: awake, oriented to person, oriented to place and oriented to time Exam Limitations: no limitations Nutritional Appearance: overweight HEENT normocephalic and head/scalp atraumatic Head and Scalp: normal to inspection Face and Sinus: normal facial exam Nose: external nose normal External Ear: external ears normal Eyes EOMs intact bilaterally Neck full ROM Resp normal respiratory effort, normal air movement, no retractions and no use of accessory muscles Effort and Inspection: able to speak in complete sentences and symmetric chest movement Skin Wound Narrative: A right below-knee amputation is noted. The dehiscent wound on the right below-knee amputation incision is now completely healed and epithelialized. With respect to the patient's recent mastectomy, performed on March 15, 2024, she has experienced a surgical wound dehiscence at 2 different sites within the incision. A horizontal mastectomy incision is noted. A large portion of the incision is intact, though 2 portions demonstrate dehiscence. These 2 areas demonstrate extension into the subcutaneous tissues. There is no sign of infection or cellulitis. There is a moderate amount of bioburden and nonviable tissue. The dimensions of the mastectomy incisional dehiscence are documented elsewhere. A former Ney-Mckeon drain site appears to be healed. Hair: normal Neuro oriented x3, CN's II-XII intact bilaterally, moves all extremities, no focal motor deficits and no sensory deficits noted Sensorium / Orientation: awake, alert, oriented to person, oriented to place and oriented to time Debridement Note Debridement Note Wound debrided: Dehiscent right mastectomy incision Laterality: Right Type of Debridement: Excisional debridement Anesthesia Used: 5% Lidocaine Gel and Cetacaine Depth: Down to and including healthy tissue and in the subcutaneous layer Percentage of wound debrided: 100 Instrument Used: 3mm curette Tissue Removed: Bioburden and nonviable tissue Severity: Fat Layer Exposed Amount of bleeding with debridement: Mild Bleeding Controlled with: Compression and gauze Patient tolerated procedure: Patient tolerated procedure well Post-Debridement Measurements and Additional Note: Post-Debridement Measurements/Treatment WC - Nurse 1 - General Ulcer Assessment Start: 04/26/24 15:03 Freq: Status: Active Protocol: MATT Activity Type Activity Date Activity User E-sign Co-sign Detail Recorded Client Recorded Date Recorded By Document 04/26/24 15:04 RB [id number] 04/26/24 15:07 RB Document 05/03/24 15:01 KW [id number] 05/03/24 15:15 KW 04/26/24 05/03/24 15:04 15:01 WC - Today's Visit Information Type of service Follow-up Visit Follow-up Visit (Physician/VP SALES (Physician/VP SALES ) ) Arrival Mode Wheelchair Wheelchair Transfer Assistance Manual Accompanied by Patient Identification Verified (Name & Yes Yes ) Patient Requires Transmission-Based No Precautions Height and Weight Body Mass Index (BMI) 54.1 54.1 BMI Classification Obese Obese Vital Signs Temperature (97.8 F-99.1 F) 97.3 F L 97.8 F Temperature Source Temporal Temporal Pulse Rate (60-100) 104 H 82 Pulse Location Monitor Monitor Respiratory Rate (12-18) 18 18 Respiratory rate source Observation Observation Oxygen Delivery Method Room Air Blood Pressure (90/60-120/80) 148/80 H 151/40 H Blood Pressure Mean 102 77 Source Monitor Monitor Position Semi-Fowlers Sitting Blood Pressure Location Left Arm Left Arm History Since Last Visit- (Skip if this is Patient's initial visit) Have you changed medications since your No No last visit? Any new allergies or adverse reactions No No Had a fall/change in ADL's that may No No increase risk of falls Signs or symptoms of abuse and/or No No neglect since last visit Have you been in the hospital since your No No last visit? Has dressing in place as prescribed Yes Yes Has compression in place as prescribed No Yes Has offloadiing in place as prescribed No N/A Experienced any changes in pain level or No No management Left Footwear Regular Shoe Right Footwear No Footwear Pain Scale: 0-10 Numeric Is Patient Pain Free? Yes Yes JIA Linda Nurse 1 - General Ulcer Measurement Start: 04/26/24 15:03 Freq: Status: Active Protocol: Activity Type Activity Date Activity User E-sign Co-sign Detail Recorded Client Recorded Date Recorded By Document 04/26/24 15:04 RB [id number] 04/26/24 15:07 RB Document 05/03/24 15:01 KW [id number] 05/03/24 15:15 KW 04/26/24 05/03/24 15:04 15:01 Wound Center Nurse 1 #4 MED CHEST- cluster -Current Size (cm) - Length 0.7 -Current Size (cm) - Width 3 -Current Size (cm) - Depth 0.3 -Total Square Cm 2.1 -Date of Last Picture (Recall this 05/03/24 field) -Exudate Amt Small -Exudate Type Serosanguineous -Wound Margin Distinct, Outline Attached -Granulation Amt Small (1-33%) -Granulation Quality [place],Red -Necrosis Amt Large (67-100%) -Necrotic Tissue Type Adherent Slough -Texture (Fadumo-wound Skin Appearance) Assessed, Excoriation -Moisture (Fadumo-wound Skin Appearance) Assessed -Color (Fadumo-wound Skin Appearance) Assessed -Temperature (Fadumo-wound Skin No Abnormality Appearance) (Pt Warm) -Tenderness on Palpation (Fadumo-wound No Skin Appearance) -Ulcer Cleansing Rinsed/ Irrigated with Saline -Foul Odor after Cleansing No -Anesthetic Used 5% Lidocaine Gel #1 RT superior stump -Combined with other wound No -Current Size (cm) - Length 0.1 0 -Current Size (cm) - Width 0.1 0 -Current Size (cm) - Depth 0.1 0 -Total Square Cm 0.01 0 -Date of Last Picture (Recall this 05/03/24 field) -Photo Taken Yes -Tunneling No -Undermining/Tunneling No -Circular Undermining No -Exudate Amt Medium -Exudate Type Serosanguineous -Wound Margin Distinct, Outline Attached -Granulation Amt Medium (34-66%) -Granulation Quality [place] -Slough/Fibrin Yes -Necrosis Amt Medium (34-66%) -Necrotic Tissue Type Adherent Slough -Structure Exposed N/A -Texture (Fadumo-wound Skin Appearance) Assessed, Scarring -Moisture (Fadumo-wound Skin Appearance) Assessed -Color (Fadumo-wound Skin Appearance) Assessed -Temperature (Fadumo-wound Skin No Abnormality Appearance) (Pt Warm) -Tenderness on Palpation (Fadumo-wound No Skin Appearance) -Ulcer Cleansing Wound Cleanser -Foul Odor after Cleansing No -Anesthetic Used 5% Lidocaine Gel #3 right chest surgical incision- cluster -Current Size (cm) - Length 6 -Current Size (cm) - Width 1 -Current Size (cm) - Depth 0.2 -Total Square Cm 6 -Exudate Amt Small -Exudate Type Serosanguineous -Wound Margin Distinct, Outline Attached -Granulation Amt Medium (34-66%) -Granulation Quality [place],Red -Necrosis Amt Medium (34-66%) -Necrotic Tissue Type Adherent Slough -Texture (Fadumo-wound Skin Appearance) Assessed, Excoriation -Moisture (Fadumo-wound Skin Appearance) Assessed -Color (Fadumo-wound Skin Appearance) Assessed, Erythema -Temperature (Fadumo-wound Skin No Abnormality Appearance) (Pt Warm) -Tenderness on Palpation (Fadumo-wound No Skin Appearance) -Ulcer Cleansing Rinsed/ Irrigated with Saline -Foul Odor after Cleansing No -Anesthetic Used 5% Lidocaine Gel WC - Nurse 2 - General Ulcer CM Notes Start: 04/26/24 15:03 Freq: Status: Active Protocol: Activity Type Activity Date Activity User E-sign Co-sign Detail Recorded Client Recorded Date Recorded By Document 04/26/24 15:32 DS [id number] 04/26/24 15:42 DS Edit Result 04/26/24 15:32 DS (1) [id number] 04/27/24 13:29 DS Document 05/03/24 15:24 DS [id number] 05/03/24 15:34 DS Edit Result 05/03/24 15:24 DS (2) [id number] 05/03/24 16:02 DS (1) #3 right chest surgical incision- cluster - Debridement - Subq, 1st 20sq cm Yes => No (2) #4 MED CHEST- cluster - Tissue Removed Subcutaneous => - Tunneling No => - Undermining/Tunneling No => - Circular Undermining No => - Wound/Ulcer Outcome Not Healed => - Ulcer Cleansing Rinsed/Irrigated => with Saline => - Bleeding Controlled with Pressure => - Treatment Response Procedure => Tolerated Well => - Debridement - Subq, 1st 20sq cm Yes => 04/26/24 05/03/24 15:32 15:24 Wound Center Nurse 2 #4 MED CHEST- cluster -Bioengineered Tissue No #1 RT superior stump -Time 15:33 15:25 -Correct Patient Yes -Correct Side, Site, Position Yes -Correct Procedure Yes -Procedure Performed Yes No -Type of Procedure Debridement -Clinical Debridement Subcutaneous -Tissue Removed Subcutaneous -Post Debridement (cm) - Length 0.5 -Post Debridement (cm) - Width 0.3 -Post Debridement (cm) - Depth 0.1 -Total Square (Post) (cm) 0.15 -Area of Debridement (cm) - Length 0.5 -Area of Debridement (cm) - Width 0.3 -Total Square (Area) (cm) 0.15 -Tunneling No -Undermining/Tunneling No -Circular Undermining No -Wound/Ulcer Outcome Not Healed Healed- Epithelialized -Ulcer Cleansing Rinsed/ Irrigated with Saline -Bioengineered Tissue No -Bleeding Controlled with Pressure -Treatment Response Procedure Tolerated Well -Debridement - Subq, 1st 20sq cm Yes #3 right chest surgical incision- cluster -Time 15:36 15:27 -Correct Patient Yes Yes -Correct Side, Site, Position Yes Yes -Correct Procedure Yes Yes -Procedure Performed Yes Yes -Type of Procedure Debridement Debridement -Clinical Debridement Subcutaneous Subcutaneous -Tissue Removed Subcutaneous Subcutaneous -Post Debridement (cm) - Length 1.2 1.0 -Post Debridement (cm) - Width 7.4 15.5 -Post Debridement (cm) - Depth 0.5 0.4 -Total Square (Post) (cm) 8.88 15.50 -Area of Debridement (cm) - Length 1.2 1.0 -Area of Debridement (cm) - Width 7.4 15.5 -Total Square (Area) (cm) 8.88 15.50 -Tunneling No No -Undermining/Tunneling No No -Circular Undermining No No -Wound/Ulcer Outcome Not Healed Not Healed -Ulcer Cleansing Rinsed/ Rinsed/ Irrigated with Irrigated with Saline Saline -Bioengineered Tissue No No -Bleeding Controlled with Pressure Pressure -Treatment Response Procedure Procedure Tolerated Well Tolerated Well -Debridement - Subq, 1st 20sq cm No Yes Pain Scale: 0-10 Numeric Is Patient Pain Free? Yes Yes WC - Nurse 3 - General Ulcer D/C NN Start: 04/26/24 15:03 Freq: Status: Active Protocol: Activity Type Activity Date Activity User E-sign Co-sign Detail Recorded Client Recorded Date Recorded By Document 04/26/24 16:03 RB [id number] 04/26/24 16:05 RB Document 05/03/24 15:43 KW [id number] 05/03/24 15:44 KW 04/26/24 05/03/24 16:03 15:43 Wound Care Center Nurse 3 #1 RT superior stump -Other Dressing hydrogel / gauze -Primary Dressing Covered/Secured with Dry Gauze #3 right chest surgical incision- cluster -Ulcer Cleansing Rinsed/ Rinsed/ Irrigated with Irrigated with Saline Saline -Primary Dressing Applied C Hydrogel ($), Optilok 6.5x10, Mepilex Border Optilok 8x12 -Other Dressing hydrogel -Mepilex Border 1 -Optilok 6.5x10 1 -Optilok 8x12 1 Right -Other justin Treatment Response Procedure Tolerated Well Pain Scale: 0-10 Numeric Is Patient Pain Free? Yes Yes WC - Visit Discharge Discharge Condition Stable Stable Ambulatory Status Wheelchair Wheelchair Transportation Private Auto Private Auto Medication Reconcilliation completed & No No provided to patient/care provider Clinical Summary of Care Provided Yes Yes Additional Wound Wound debrided: Dehiscent right mastectomy incision Tissue Removed: Bioburden and nonviable tissue, surgical suture Charges/Coding Procedures Integumentary [id number]: [id number] Padmini subq tissue 20 sq cm/< Assessment/Plan Assessment/Plan (1) Dehiscence of incision: CODE(S): T81.31XA - Disruption of external operation (surgical) wound, not elsewhere classified, initial encounter QUALIFIERS: Encounter type: subsequent encounter Qualified Code(s): T81.31XD - Disruption of external operation (surgical) wound, not elsewhere classified, subsequent encounter (2) History of right mastectomy: CODE(S): Z90.11 - Acquired absence of right breast and nipple (3) Non-pressure chronic ulcer of right calf with fat layer exposed: CODE(S): L97.212 - Non-pressure chronic ulcer of right calf with fat layer exposed (4) Surgical wound dehiscence: CODE(S): T81.31XA - Disruption of external operation (surgical) wound, not elsewhere classified, initial encounter QUALIFIERS: Encounter type: subsequent encounter Qualified Code(s): T81.31XD - Disruption of external operation (surgical) wound, not elsewhere classified, subsequent encounter (5) History of right below knee amputation: CODE(S): Z89.511 - Acquired absence of right leg below knee (6) Morbid obesity with BMI of 50.0-59.9, adult: CODE(S): E66.01 - Morbid (severe) obesity due to excess calories; Z68.43 - Body mass index [BMI] 50.0-59.9, adult (7) Diabetes mellitus, type 2: CODE(S): E11.9 - Type 2 diabetes mellitus without complications QUALIFIERS: Diabetes mellitus chcf insulin use: with chcf use Diabetes mellitus complication status: with kidney complications Diabetes mellitus complication detail: with chronic kidney disease Chronic kidney disease stage: stage 3 (moderate) Chronic kidney disease stage 3 subtype: stage 3a (GFR 45-59) Qualified Code(s): E11.22 - Type 2 diabetes mellitus with diabetic chronic kidney disease; N18.31 - Chronic kidney disease, stage 3a; Z79.4 - retirement (current) use of insulin (8) Below knee amputation: CODE(S): S88.119A - 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, unspecified lower leg, initial encounter QUALIFIERS: Encounter type: sequela Laterality: bilateral Qualified Code(s): S88.111S - 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, right lower leg, sequela; S88.112S - 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, left lower leg, sequela (9) Hypothyroid: CODE(S): E03.9 - Hypothyroidism, unspecified QUALIFIERS: Hypothyroidism type: acquired Qualified Code(s): E03.9 - Hypothyroidism, unspecified (10) Benign essential HTN: CODE(S): I10 - Essential (primary) hypertension (11) Breast cancer in female: CODE(S): C50.919 - Malignant neoplasm of unspecified site of unspecified female breast QUALIFIERS: Breast location: unspecified site of breast Estrogen receptor status: positive Laterality: right Qualified Code(s): C50.911 - Malignant neoplasm of unspecified site of right female breast; Z17.0 - Estrogen receptor positive status [ER+] (12) Physical debility: CODE(S): R53.81 - Other malaise (13) Right leg swelling: CODE(S): M79.89 - Other specified soft tissue disorders (14) Hyperlipidemia: CODE(S): E78.5 - Hyperlipidemia, unspecified (15) GERD (gastroesophageal reflux disease): CODE(S): K21.9 - Gastro-esophageal reflux disease without esophagitis (16) History of below-knee amputation: CODE(S): Z89.519 - Acquired absence of unspecified leg below knee QUALIFIERS: Laterality: right Qualified Code(s): Z89.511 - Acquired absence of right leg below knee (17) History of total abdominal hysterectomy and bilateral salpingo-oophorectomy: CODE(S): Z90.710 - Acquired absence of both cervix and uterus; Z90.722 - Acquired absence of ovaries, bilateral; Z90.79 - Acquired absence of other genital organ(s) (18) History of cardiac radiofrequency ablation: CODE(S): Z98.890 - Other specified postprocedural states (19) History of carpal tunnel release: CODE(S): Z98.890 - Other specified postprocedural states (20) Hx of cholecystectomy: CODE(S): Z98.890 - Other specified postprocedural states; Z90.49 - Acquired absence of other specified parts of digestive tract (21) History of tonsillectomy: CODE(S): Z90.89 - Acquired absence of other organs (22) BRITT (obstructive sleep apnea): CODE(S): G47.33 - Obstructive sleep apnea (adult) (pediatric) (23) Diabetic neuropathy: CODE(S): E11.40 - Type 2 diabetes mellitus with diabetic neuropathy, unspecified QUALIFIERS: Diabetes mellitus type: type 2 Diabetes mellitus complication detail: diabetic polyneuropathy Qualified Code(s): E11.42 - Type 2 diabetes mellitus with diabetic polyneuropathy (24) Rheumatoid arthritis: CODE(S): M06.9 - Rheumatoid arthritis, unspecified (25) Pulmonary hypertension: CODE(S): I27.20 - Pulmonary hypertension, unspecified PLAN: Plan This is a 63-year-old female with multiple pre-existing medical problems, who presented with a 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 The right below-knee amputation was performed on October 19, 2023, at [facility]. Upon removal of her surgical luisana several weeks postoperatively, she developed a surgical wound dehiscence and was referred to the [facility] for definitive management. Measures have been implemented to minimize swelling in her right lower extremity, and have included leg elevation and sleeping on a flat mattress at night. As of today, the patient's right below-knee amputation dehiscence is completely healed and epithelialized. It should be possible in the near future for the patient to be evaluated by a garage door technician for creation of a prosthesis for the purpose of ambulation. We are now involved in the management of the patient's dehiscent right mastectomy incision. An excisional debridement has been performed. We are to continue the use of collagen hydrogel topically to the dehiscent portion of her mastectomy incision, which will be applied topically on a daily basis. The patient has been encouraged to optimize her nutritional intake and assure good control of her diabetes mellitus. She indicates that she continues to take a nutritional supplement on a regular basis. The patient has recently met with her oncologist, who has indicated that chemotherapy may be appropriate for her in the coming months. Wound healing as a prelude to chemotherapy is preferred. The patient is to return to the [facility] in 1 week for reassessment. Total time: 25 minutes
--- NOTE | 2024-05-05 11:56 | WC ---
PHOTO 05/03/24 RIGHT STUMP
--- NOTE | 2024-05-05 11:57 | WC ---
PHOTO 05/03/24 RIGHT CHEST
--- NOTE | 2024-05-05 11:57 | WC ---
PHOTO 05/03/24 MED CHEST
[2024-05-10 14:51] VITALS: BP 145/76; PULSE 103; RESP 18; TEMP 36.4; BMI 54.1
--- NOTE | 2024-05-10 16:02 | HP.PCM_ITS ---
History of Present Illness Date of Service: 05/10/24 Chief Complaint: Surgical wound dehiscence of the right below-knee amputation stump incision; Surgical wound dehiscence of the right mastectomy incision History of Wound: This is a 63-year-old morbidly obese female with multiple pre- existing medical conditions. She is a longstanding diabetic and has been poorly controlled. She suffers from diabetic peripheral neuropathy. She developed a right Charcot foot deformity, with collapse of her right arch. Her condition resulted in a right below-knee am[place] which [place] [facility]. Narayan on October 19, 2023. The patient had a relatively uncomplicated postoperative course. She was transferred to the [facility] rehabilitation unit, where she continued to convalesce for several weeks. Several weeks postoperatively, Dr. Damon's staff removed the patient's surgical luisana, and the patient subsequently developed a dehiscence. She was referred to the [facility] for management of her right below-knee amputation stump incisional dehiscence. The patient had been using Neosporin and gauze topically. She had also been using a Coban wrap and has been fitted with a stump cuff knitter by [employer]. The derrick ghosh's multiple pre-existing medical conditions are listed elsewhere. Of note, she underwent right breast needle biopsy on November 26, 2023, which was indicative of invasive ductal carcinoma. She is under the care of other providers for management of this recent diagnosis, including her surgeon, Dr. Knapp. On March 15, 2024, the patient underwent right mastectomy with sentinel lymph node biopsy. The patient is in the recovery phase from her recent mastectomy, and has experienced a surgical wound dehiscence of her mastectomy incision, for which she is seeking evaluation and management, in addition to management of her healing right BKA stump incision. [facility] Medical History Dehiscence of incision Invasive ductal carcinoma of right breast in female GERD (gastroesophageal reflux disease) Hyperlipidemia Tinea cruris Non-pressure chronic ulcer of right calf with fat layer exposed Wears glasses Post-menopausal Cancer Anxiety Open wound Thyroid disease Insulin dependent diabetes mellitus Uses wheelchair Fatty liver High cholesterol Dietary restriction Non-smoker History of edema History of echocardiogram History of stress test Cardiology follow-up encounter Surgical wound dehiscence Right leg swelling History of endometrial cancer Rheumatoid arthritis Diverticulosis Chronic renal failure, stage 3 (moderate) Pulmonary hypertension GERD (gastroesophageal reflux disease) Hyperlipidemia History of kidney stones Breast cancer in female Morbid obesity with BMI of 50.0-59.9, adult Hydronephrosis Ureteral calculus Charcot ankle Diabetic neuropathy Morbid obesity with BMI of 50.0-59.9, adult Diverticulosis Diabetes mellitus, type 2 Chronic renal failure (CRF), stage 3a Anemia Rheumatoid arthritis Chronic pain CPAP (continuous positive airway pressure) dependence Pulmonary hypertension BRITT (obstructive sleep apnea) Thyromegaly Hx of supraventricular tachycardia Nephrolithiasis Rosacea Fatty liver External hemorrhoid GERD without esophagitis Benign essential HTN Bilateral carpal tunnel syndrome Hyperlipidemia Low vitamin B12 level Multinodular goiter Tubular adenoma Adenocarcinoma of endometrium Home Medications ?Medication ?Instructions ?Recorded ?Last Taken ?Type aspirin 81 mg tablet,delayed 81 mg PO DAILY Heart health 01/11/16 03/06/24 History release cetirizine 10 mg capsule 10 mg PO DAILY Allergies 01/11/16 03/15/24 History metoprolol succinate 100 mg 100 mg PO DAILY BP 01/11/16 03/15/24 History tablet,extended release 24 hr multivitamin 1 ea PO DAILY Supplement 01/11/16 03/14/24 History omeprazole 40 mg capsule,delayed 40 mg PO DAILY GERD 01/11/16 03/15/24 History release simvastatin 20 mg tablet 20 mg PO QHS Cholestrol 01/11/16 03/14/24 History cyanocobalamin (vitamin B-12) 1,000 mcg PO DAILY Supplement 07/02/17 03/14/24 History 1,000 mcg sublingual tablet hydroxychloroquine 200 mg tablet 200 mg PO BID Platelets 04/28/18 03/14/24 History (Plaquenil) pregabalin 150 mg capsule (Lyrica) 150 mg PO QHS NERVE PAIN 06/14/18 03/15/24 History ferrous sulfate 325 mg (65 mg 325 mg PO DAILY supplement 04/25/20 03/14/24 History iron) tablet (Feosol) allopurinol 100 mg tablet 100 mg PO DAILY #30 tabs 11/18/23 03/14/24 Rx ascorbic acid (vitamin C) 500 mg 1,000 mg (2 x 500 mg) PO DAILY #30 11/18/23 03/14/24 Rx tablet tabs calcium carbonate (Oyster Shell 500 mg PO BREAKFAST #30 tabs 11/18/23 03/14/24 Rx Calcium 500) blood sugar diagnostic (OneTouch #100 ea 12/03/23 Unknown Rx Ultra Test strips) OneTouch Delica Plus Lancet 33 #100 ea 12/04/23 Unknown Rx gauge (lancets) blood sugar diagnostic (OneTouch #100 ea 12/04/23 Unknown Rx Ultra Test strips) buspirone 5 mg tablet 5 mg PO TID #90 tabs 12/11/23 03/15/24 Rx alprazolam 0.5 mg tablet (Xanax) 0.5 mg PO TID PRN PRN panic attack 12/25/23 12/07/23 History fiber 1 cap PO DAILY 12/25/23 03/14/24 History oxycodone 5 mg capsule 5 mg PO Q6H PRN PRN pain 12/25/23 12/21/23 History anastrozole 1 mg tablet (Arimidex) 1 mg PO DAILY #90 tabs 02/24/24 03/15/24 Rx escitalopram oxalate 10 mg tablet 10 mg PO DAILY 03/03/24 03/14/24 History insulin regular hum U-500 conc 500 15 unit subcut LUNCH 03/04/24 03/14/24 History unit/mL(3 mL) subcut pen insulin regular hum U-500 conc 500 35 unit subcut DINNER 03/04/24 03/14/24 History unit/mL(3 mL) subcut pen insulin regular hum U-500 conc 500 35 unit subcut QHS 03/04/24 03/14/24 History unit/mL(3 mL) subcut pen insulin regular hum U-500 conc 500 175 unit subcut BREAKFAST Blood 03/04/24 03/15/24 History unit/mL(3 mL) subcut pen sugar semaglutide 2 mg/dose (8 mg/3 mL) 1 mg subcut TH 03/04/24 02/25/24 History subcutaneous pen injector (Ozempic) insulin lispro 100 unit/mL 3 unit subcut TID PRN BLOOD SUGARS 03/15/24 Unknown History subcutaneous pen insulin lispro 100 unit/mL See Protocol subcut DAILY PRN 03/15/24 03/13/24 History subcutaneous pen elevated BS pregabalin 100 mg capsule (Lyrica) 100 mg PO BID NERVE PAIN 03/15/24 03/15/24 History acetaminophen 325 mg tablet 650 mg (2 x 325 mg) PO Q6H PRN PRN 03/16/24 Unknown Rx Pain Score 1-10 #0 tabs doxycycline hyclate 100 mg capsule 100 mg PO BID #10 caps 04/15/24 Unknown Rx blood-glucose sensor (Dexcom G7 #3 ea 04/21/24 Unknown Rx Sensor device) silver sulfadiazine 1 % topical 1 applic topical BID #25 grams 04/21/24 Unknown Rx cream (Silvadene) losartan 50 mg tablet (Cozaar) 50 mg PO DAILY #90 tabs 04/27/24 Unknown Rx levothyroxine 300 mcg tablet See Rx Instructions PO DAILY #96 05/05/24 Unknown Rx tabs Allergy/AdvReac Type Severity Reaction Status Date / Time No Known Allergies Allergy Verified 04/26/24 14:03 Family History Mother Ovarian cancer Hypertension Arthritis Uterine cancer Fibrocystic disease of breast Hypothyroid Father , Age 86-CHF Hypertension Arthritis Diverticulitis of colon Depression CAD (coronary artery disease) Sister Hypertension Depression CVA (cerebral vascular accident) Fibrocystic disease of breast Diabetes Bleeding disorder Portal hypertension Surgical History History of right mastectomy Status post right mastectomy History of cardiac catheterization Hx of cystoscopy Hx of total thyroidectomy History of tonsillectomy History of carpal tunnel release History of cardiac radiofrequency ablation History of total abdominal hysterectomy and bilateral salpingo-oophorectomy History of below-knee amputation S/P cystoscopy with ureteral stent placement History of right below knee amputation History of hand surgery H/O cardiac radiofrequency ablation (02/15/13) History of right and left heart catheterization (07/03/17) H/O colonoscopy H/O abdominal hysterectomy H/O carpal tunnel repair Previous section History of tonsillectomy Hx of cholecystectomy Surgical menopause Social History Smoking Status: Never smoker second hand exposure: No alcohol intake: never substance use type: does not use caffeine: No Vital Signs Vital Signs Vital Signs: 05/10/24 14:51 Temperature 97.6 F L Temperature Source Temporal Pulse Rate 103 H Respiratory Rate 18 Blood Pressure 145/76 H Blood Pressure Mean 99 Blood Pressure Source Monitor Blood Pressure Position Sitting Blood Pressure Location Left Arm Oxygen Delivery Method Room Air Weight Weight: 335 lb Body Mass Index (BMI) 54.1 Physical Exam Const alert, oriented x3, no apparent distress, no limitations, healthy appearing and well nourished Constitutional Narrative: The patient is morbidly obese. General Appearance: cooperative, comfortable, well kempt and well developed Orientation / Consciousness: awake, oriented to person, oriented to place and oriented to time Exam Limitations: no limitations Nutritional Appearance: overweight HEENT normocephalic and head/scalp atraumatic Head and Scalp: normal to inspection Face and Sinus: normal facial exam Nose: external nose normal External Ear: external ears normal Eyes EOMs intact bilaterally Neck full ROM Resp normal respiratory effort, normal air movement, no retractions and no use of accessory muscles Effort and Inspection: able to speak in complete sentences and symmetric chest movement Skin Wound Narrative: A right below-knee amputation is noted. The dehiscent wound on the right below- knee amputation incision had been verified as healed recently, but has now reopened. There is now a superficial wound at this site. There is no sign of infection or cellulitis. The base of the wound is generally pink and healthy in appearance, with a small amount of bioburden. The wound extends into the subcutaneous tissues, and dimensions are documented elsewhere. With respect to the patient's recent mastectomy, performed on March 15, 2024, she has experienced a surgical wound dehiscence. A horizontal mastectomy incision is noted. A large portion of the incision is intact, though 2 portions demonstrate dehiscence. These 2 areas, involving the medial incision, and the right lateral incision, demonstrate extension into the subcutaneous tissues. There is no sign of infection or cellulitis. There is a moderate amount of bioburden and nonviable tissue. The dimensions of the mastectomy incisional dehiscence are d ocumented elsewhere. A former Ney-Mckeon drain site appears to be healed. Hair: normal Neuro oriented x3, CN's II-XII intact bilaterally, moves all extremities, no focal motor deficits and no sensory deficits noted Sensorium / Orientation: awake, alert, oriented to person, oriented to place and oriented to time Debridement Note Debridement Note Wound debrided: Dehiscent right mastectomy incision Laterality: Right Type of Debridement: Excisional debridement Anesthesia Used: 5% Lidocaine Gel and Cetacaine Depth: Down to and including healthy tissue and in the subcutaneous layer Percentage of wound debrided: 100 Instrument Used: 3mm curette Tissue Removed: Bioburden and nonviable tissue Severity: Fat Layer Exposed Amount of bleeding with debridement: Mild Bleeding Controlled with: Compression and gauze Patient tolerated procedure: Patient tolerated procedure well Post-Debridement Measurements and Additional Note: Post-Debridement Measurements/Treatment - Nurse 1 - General Ulcer Assessment Start: 04/26/24 15:03 Freq: Status: Active Protocol: MATT Activity Type Activity Date Activity User E-sign Co-sign Detail Recorded Client Recorded Date Recorded By Document 04/26/24 15:04 RB [id number] 04/26/24 15:07 RB Document 05/03/24 15:01 KW [id number] 05/03/24 15:15 KW Document 05/10/24 14:51 KW [id number] 05/10/24 15:08 KW 04/26/24 05/03/24 05/10/24 15:04 15:01 14:51 - Today's Visit Information Type of service Follow-up Visit Follow-up Visit Follow-up Visit (Physician/MATERIALS TECH (Physician/MATERIALS TECH (Physician/MATERIALS TECH ) ) ) Arrival Mode Wheelchair Wheelchair Wheelchair Transfer Assistance Manual Accompanied by Patient Identification Verified (Name & Yes Yes Yes ) Patient Requires Transmission-Based No Precautions Height and Weight Body Mass Index (BMI) 54.1 54.1 54.1 BMI Classification Obese Obese Obese Vital Signs Temperature (97.8 F-99.1 F) 97.3 F L 97.8 F 97.6 F L Temperature Source Temporal Temporal Temporal Pulse Rate (60-100) 104 H 82 103 H Pulse Location Monitor Monitor Monitor Respiratory Rate (12-18) 18 18 18 Respiratory rate source Observation Observation Observation Oxygen Delivery Method Room Air Room Air Blood Pressure (90/60-120/80) 148/80 H 151/40 H 145/76 H Blood Pressure Mean 102 77 99 Source Monitor Monitor Monitor Position Semi-Fowlers Sitting Sitting Blood Pressure Location Left Arm Left Arm Left Arm History Since Last Visit- (Skip if this is Patient's initial visit) Have you changed medications since your No No No last visit? Any new allergies or adverse reactions No No No Had a fall/change in ADL's that may No No No increase risk of falls Signs or symptoms of abuse and/or No No No neglect since last visit Have you been in the hospital since your No No No last visit? Has dressing in place as prescribed Yes Yes Yes Has compression in place as prescribed No Yes Yes Has offloadiing in place as prescribed No N/A Yes Experienced any changes in pain level or No No No management Left Footwear Regular Shoe Regular Shoe Right Footwear No Footwear No Footwear Pain Scale: 0-10 Numeric Is Patient Pain Free? Yes Yes Yes WC - Nurse 1 - General Ulcer Measurement Start: 04/26/24 15:03 Freq: Status: Active Protocol: Activity Type Activity Date Activity User E-sign Co-sign Detail Recorded Client Recorded Date Recorded By Document 04/26/24 15:04 RB [id number] 04/26/24 15:07 RB Document 05/03/24 15:01 KW [id number] 05/03/24 15:15 KW Document 05/10/24 14:51 KW [id number] 05/10/24 15:08 KW 04/26/24 05/03/24 05/10/24 15:04 15:01 14:51 Wound Center Nurse 1 #4 MED CHEST- cluster -Current Size (cm) - Length 0.7 -Current Size (cm) - Width 3 -Current Size (cm) - Depth 0.3 -Total Square Cm 2.1 -Date of Last Picture (Recall this 05/03/24 field) -Exudate Amt Small -Exudate Type Serosanguineous -Wound Margin Distinct, Outline Attached -Granulation Amt Small (1-33%) -Granulation Quality Evart,Red -Necrosis Amt Large (67-100%) -Necrotic Tissue Type Adherent Slough -Texture (Fadumo-wound Skin Appearance) Assessed, Excoriation -Moisture (Fadumo-wound Skin Appearance) Assessed -Color (Fadumo-wound Skin Appearance) Assessed -Temperature (Fadumo-wound Skin No Abnormality Appearance) (Pt Warm) -Tenderness on Palpation (Fadumo-wound No Skin Appearance) -Ulcer Cleansing Rinsed/ Irrigated with Saline -Foul Odor after Cleansing No -Anesthetic Used 5% Lidocaine Gel #3 right chest surgical incision- cluster -Current Size (cm) - Length 6 1 -Current Size (cm) - Width 1 10.2 -Current Size (cm) - Depth 0.2 0.4 -Total Square Cm 6 10.2 -Date of Last Picture (Recall this 05/10/24 field) -Exudate Amt Small Small -Exudate Type Serosanguineous Serosanguineous -Wound Margin Distinct, Distinct, Outline Outline Attached Attached -Granulation Amt Medium (34-66%) Medium (34-66%) -Granulation Quality Evart,Red [place]art -Necrosis Amt Medium (34-66%) Medium (34-66%) -Necrotic Tissue Type Adherent Slough Adherent Slough -Texture (Fadumo-wound Skin Appearance) Assessed, Assessed Excoriation -Moisture (Fadumo-wound Skin Appearance) Assessed Assessed -Color (Fadumo-wound Skin Appearance) Assessed, Assessed, Erythema Erythema -Temperature (Fadumo-wound Skin No Abnormality No Abnormality Appearance) (Pt Warm) (Pt Warm) -Tenderness on Palpation (Fadumo-wound No No Skin Appearance) -Ulcer Cleansing Rinsed/ Soap and Water Irrigated with Saline -Foul Odor after Cleansing No No -Anesthetic Used 5% Lidocaine 5% Lidocaine Gel Gel #1 RT stump cluster-rec -Combined with other wound No -Current Size (cm) - Length 0.1 0 0.9 -Current Size (cm) - Width 0.1 0 1 -Current Size (cm) - Depth 0.1 0 0.1 -Total Square Cm 0.01 0 0.9 -Date of Last Picture (Recall this 05/03/24 05/10/24 field) -Photo Taken Yes -Tunneling No -Undermining/Tunneling No -Circular Undermining No -Exudate Amt Medium Small -Exudate Type Serosanguineous Serosanguineous -Wound Margin Distinct, Distinct, Outline Outline Attached Attached -Granulation Amt Medium (34-66%) Large (67-100%) -Granulation Quality [place] Red -Slough/Fibrin Yes -Necrosis Amt Medium (34-66%) -Necrotic Tissue Type Adherent Slough -Structure Exposed N/A -Texture (Fadumo-wound Skin Appearance) Assessed, Assessed Scarring -Moisture (Fadumo-wound Skin Appearance) Assessed Assessed -Color (Fadumo-wound Skin Appearance) Assessed Assessed -Temperature (Fadumo-wound Skin No Abnormality No Abnormality Appearance) (Pt Warm) (Pt Warm) -Tenderness on Palpation (Fadumo-wound No No Skin Appearance) -Ulcer Cleansing Wound Cleanser -Foul Odor after Cleansing No No -Anesthetic Used 5% Lidocaine 5% Lidocaine Gel Gel WC - Nurse 2 - General Ulcer CM Notes Start: 04/26/24 15:03 Freq: Status: Active Protocol: Activity Type Activity Date Activity User E-sign Co-sign Detail Recorded Client Recorded Date Recorded By Document 04/26/24 15:32 DS [id number] 04/26/24 15:42 DS Edit Result 04/26/24 15:32 DS (1) [id number] 04/27/24 13:29 DS Document 05/03/24 15:24 DS [id number] 05/03/24 15:34 DS Edit Result 05/03/24 15:24 DS (2) [id number] 05/03/24 16:02 DS Document 05/10/24 15:11 DS [id number] 05/10/24 15:22 DS (1) #3 right chest surgical incision- cluster - Debridement - Subq, 1st 20sq cm Yes => No (2) #4 MED CHEST- cluster - Tissue Removed Subcutaneous => - Tunneling No => - Undermining/Tunneling No => - Circular Undermining No => - Wound/Ulcer Outcome Not Healed => - Ulcer Cleansing Rinsed/Irrigated => with Saline => - Bleeding Controlled with Pressure => - Treatment Response Procedure => Tolerated Well => - Debridement - Subq, 1st 20sq cm Yes => 04/26/24 05/03/24 05/10/24 15:32 15:24 15:11 Wound Center Nurse 2 #4 MED CHEST- cluster -Bioengineered Tissue No #3 right chest surgical incision- cluster -Time 15:36 15:27 15:14 -Correct Patient Yes Yes Yes -Correct Side, Site, Position Yes Yes Yes -Correct Procedure Yes Yes Yes -Procedure Performed Yes Yes Yes -Type of Procedure Debridement Debridement Debridement -Clinical Debridement Subcutaneous Subcutaneous Subcutaneous -Tissue Removed Subcutaneous Subcutaneous Subcutaneous -Post Debridement (cm) - Length 1.2 1.0 0.8 -Post Debridement (cm) - Width 7.4 15.5 18.2 -Post Debridement (cm) - Depth 0.5 0.4 0.3 -Total Square (Post) (cm) 8.88 15.50 14.56 -Area of Debridement (cm) - Length 1.2 1.0 0.8 -Area of Debridement (cm) - Width 7.4 15.5 18.2 -Total Square (Area) (cm) 8.88 15.50 14.56 -Tunneling No No No -Undermining/Tunneling No No No -Circular Undermining No No No -Wound/Ulcer Outcome Not Healed Not Healed Not Healed -Ulcer Cleansing Rinsed/ Rinsed/ Rinsed/ Irrigated with Irrigated with Irrigated with Saline Saline Saline -Bioengineered Tissue No No No -Bleeding Controlled with Pressure Pressure Pressure -Treatment Response Procedure Procedure Procedure Tolerated Well Tolerated Well Tolerated Well -Debridement - Subq, 1st 20sq cm No Yes No #1 RT stump cluster-rec -Time 15:33 15:25 15:12 -Correct Patient Yes Yes -Correct Side, Site, Position Yes Yes -Correct Procedure Yes Yes -Procedure Performed Yes No Yes -Type of Procedure Debridement Debridement -Clinical Debridement Subcutaneous Subcutaneous -Tissue Removed Subcutaneous Subcutaneous -Post Debridement (cm) - Length 0.5 1.4 -Post Debridement (cm) - Width 0.3 1.9 -Post Debridement (cm) - Depth 0.1 0.1 -Total Square (Post) (cm) 0.15 2.66 -Area of Debridement (cm) - Length 0.5 1.4 -Area of Debridement (cm) - Width 0.3 1.9 -Total Square (Area) (cm) 0.15 2.66 -Tunneling No No -Undermining/Tunneling No No -Circular Undermining No No -Wound/Ulcer Outcome Not Healed Healed- Not Healed Epithelialized -Ulcer Cleansing Rinsed/ Rinsed/ Irrigated with Irrigated with Saline Saline -Bioengineered Tissue No No -Bleeding Controlled with Pressure Pressure -Treatment Response Procedure Procedure Tolerated Well Tolerated Well -Debridement - Subq, 1st 20sq cm Yes Yes Pain Scale: 0-10 Numeric Is Patient Pain Free? Yes Yes Yes WC - Nurse 3 - General Ulcer D/C NN Start: 04/26/24 15:03 Freq: Status: Active Protocol: Activity Type Activity Date Activity User E-sign Co-sign Detail Recorded Client Recorded Date Recorded By Document 04/26/24 16:03 RB [id number] 04/26/24 16:05 RB Document 05/03/24 15:43 KW [id number] 05/03/24 15:44 KW Document 05/10/24 15:27 RB [id number] 05/10/24 15:29 RB 1005/03/24 05/10/24 16:03 15:43 15:27 Wound Care Center Nurse 3 #3 right chest surgical incision- cluster -Ulcer Cleansing Rinsed/ Rinsed/ Irrigated with Irrigated with Saline Saline -Primary Dressing Applied C Hydrogel ($), Optilok 6.5x10, Mepilex Border Mepilex Border Optilok 8x12 -Other Dressing hydrogel hydrogel -Mepilex Border 1 1 -Optilok 6.5x10 1 -Optilok 8x12 1 #1 RT stump cluster-rec -Primary Dressing Applied Mepilex Border -Other Dressing hydrogel / hydrogel gauze -Primary Dressing Covered/Secured with Dry Gauze -Mepilex Border 1 Right -Other justin justin Treatment Response Procedure Procedure Tolerated Well Tolerated Well Pain Scale: 0-10 Numeric Is Patient Pain Free? Yes Yes Yes WC - Visit Discharge Discharge Condition Stable Stable Stable Ambulatory Status Wheelchair Wheelchair Wheelchair Transportation Private Auto Private Auto Private Auto Accompanied by Medication Reconcilliation completed & No No No provided to patient/care provider Clinical Summary of Care Provided Yes Yes Yes Additional Wound Wound debrided: Dehiscent right below-knee amputation stump incision Laterality: Right Type of Debridement: Excisional debridement Anesthesia Used: 5% Lidocaine Gel and Cetacaine Depth: in the subcutaneous layer Percentage of wound debrided: 100 Instrument Used: 5mm curette Tissue Removed: Bioburden Severity: Fat Layer Exposed Amount of bleeding with debridement: Mild Bleeding Controlled with: Compression and gauze Patient tolerated procedure: Patient tolerated procedure well Charges/Coding Multi Select Codes Integumentary Integumentary CPT Codes: 00558 Padmini subq tissue 20 sq cm/< (22662 - Right Leg; 07161 - Right Chest) Assessment/Plan Assessment/Plan (1) Dehiscence of incision: CODE(S): T81.31XA - Disruption of external operation (surgical) wound, not elsewhere classified, initial encounter QUALIFIERS: Encounter type: subsequent encounter Qualified Code(s): T81.31XD - Disruption of external operation (surgical) wound, not el sewhere classified, subsequent encounter (2) History of right mastectomy: CODE(S): Z90.11 - Acquired absence of right breast and nipple (3) Non-pressure chronic ulcer of right calf with fat layer exposed: CODE(S): L97.212 - Non-pressure chronic ulcer of right calf with fat layer exposed (4) Surgical wound dehiscence: CODE(S): T81.31XA - Disruption of external operation (surgical) wound, not elsewhere classified, initial encounter QUALIFIERS: Encounter type: subsequent encounter Qualified Code(s): T81.31XD - Disruption of external operation (surgical) wound, not elsewhere classified, subsequent encounter (5) History of right below knee amputation: CODE(S): Z89.511 - Acquired absence of right leg below knee (6) Morbid obesity with BMI of 50.0-59.9, adult: CODE(S): E66.01 - Morbid (severe) obesity due to excess calories; Z68.43 - Body mass index [BMI] 50.0-59.9, adult (7) Diabetes mellitus, type 2: CODE(S): E11.9 - Type 2 diabetes mellitus without complications QUALIFIERS: Diabetes mellitus intermediate manager insulin use: with intermediate manager use Diabetes mellitus complication status: with kidney complications Diabetes mellitus complication detail: with chronic kidney disease Chronic kidney disease stage: stage 3 (moderate) Chronic kidney disease stage 3 subtype: stage 3a (GFR 45-59) Qualified Code(s): E11.22 - Type 2 diabetes mellitus with diabetic chronic kidney disease; N18.31 - Chronic kidney disease, stage 3a; Z79.4 - terminal system operator (current) use of insulin (8) Below knee amputation: CODE(S): S88.119A - 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, unspecified lower leg, initial encounter QUALIFIERS: Encounter type: sequela Laterality: bilateral Qualified Code(s): S88.111S - 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, right lower leg, sequela; S88.112S - 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, left lower leg, sequela (9) Hypothyroid: CODE(S): E03.9 - Hypothyroidism, unspecified QUALIFIERS: Hypothyroidism type: acquired Qualified Code(s): E03.9 - Hypothyroidism, unspecified (10) Benign essential HTN: CODE(S): I10 - Essential (primary) hypertension (11) Breast cancer in female: CODE(S): C50.919 - Malignant neoplasm of unspecified site of unspecified female breast QUALIFIERS: Breast location: unspecified site of breast Estrogen receptor status: positive Laterality: right Qualified Code(s): C50.911 - Nohemi gnant neoplasm of unspecified site of right female breast; Z17.0 - Estrogen receptor positive status [ER+] (12) Physical debility: CODE(S): R53.81 - Other malaise (13) Right leg swelling: CODE(S): M79.89 - Other specified soft tissue disorders (14) Hyperlipidemia: CODE(S): E78.5 - Hyperlipidemia, unspecified (15) GERD (gastroesophageal reflux disease): CODE(S): K21.9 - Gastro-esophageal reflux disease without esophagitis (16) History of below-knee amputation: CODE(S): Z89.519 - Acquired absence of unspecified leg below knee QUALIFIERS: Laterality: right Qualified Code(s): Z89.511 - Acquired absence of right leg below knee (17) History of total abdominal hysterectomy and bilateral salpingo- oophorectomy: CODE(S): Z90.710 - Acquired absence of both cervix and uterus; Z90.722 - Acquired absence of ovaries, bilateral; Z90.79 - Acquired absence of other genital organ(s) (18) History of cardiac radiofrequency ablation: CODE(S): Z98.890 - Other specified postprocedural states (19) History of carpal tunnel release: CODE(S): Z98.890 - Other specified postprocedural states (20) Hx of cholecystectomy: CODE(S): Z98.890 - Other specified postprocedural states; Z90.49 - Acquired absence of other specified parts of digestive tract (21) History of tonsillectomy: CODE(S): Z90.89 - Acquired absence of other organs (22) BRITT (obstructive sleep apnea): CODE(S): G47.33 - Obstructive sleep apnea (adult) (pediatric) (23) Diabetic neuropathy: CODE(S): E11.40 - Type 2 diabetes mellitus with diabetic neuropathy, unspecified QUALIFIERS: Diabetes mellitus type: type 2 Diabetes mellitus complication detail: diabetic polyneuropathy Qualified Code(s): E11.42 - Type 2 diabetes mellitus with diabetic polyneuropathy (24) Rheumatoid arthritis: CODE(S): M06.9 - Rheumatoid arthritis, unspecified (25) Pulmonary hypertension: CODE(S): I27.20 - Pulmonary hypertension, unspecified PLAN: Plan This is a 63-year-old female with multiple pre-existing medical problems, who presented with a 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 The right below-knee amputation was performed on October 19, 2023, [place] [facility] Upon removal of her surgical luisana several weeks postoperatively, she developed a surgical wound dehiscence and was referred to the [facility] for definitive management. Measures have been implemented to minimize swelling in her right lower extremity, and have included leg elevation and sleeping on a flat mattress at night. The right below-knee amputation incisional dehiscence was noted to be completely healed recently, but a wound has reemerge at this site. The patient indicates that she noted this open wound as of this morning. She cannot account for a reason for its recurrence. She does not specifically recall trauma to the area. The patient also has a dehiscent right mastectomy incision. The ma stectomy wound appears to be slightly improved, and an excisional debridement has been performed. We are to continue the use of collagen hydrogel topically to both dehiscent wounds. The collagen hydrogel will be applied topically on a daily basis. The patient has been encouraged to optimize her nutritional intake and assure good control of her diabetes mellitus. She indicates that she continues to take a nutritional supplement on a regular basis. The patient has recently met with her oncologist, who has indicated that chemotherapy may be appropriate for her in the coming months. Wound healing as a prelude to chemotherapy is preferred. The patient is to return to the [facility] in 1 week for reassessment. Total time: 26 minutes
--- NOTE | 2024-05-12 11:33 | WC ---
PHOTO 05/10/24 RIGHT SUPERIOR STUMP
--- NOTE | 2024-05-12 11:36 | WC ---
PHOTO 05/10/24 RIGHT CHEST
--- NOTE | 2024-05-12 11:38 | WC ---
PHOTO 05/10/24 MED CHEST
[2024-05-17 13:25] VITALS: BP 138/55; PULSE 77; RESP 18; TEMP 36.1; BMI 54.1
--- NOTE | 2024-05-18 11:01 | PCM.WC.HP ---
History of Present Illness Date of Service: 05/17/24 Chief Complaint: Surgical wound dehiscence of the right below-knee amputation stump incision; Surgical wound dehiscence of the right mastectomy incision History of Wound: This is a 63-year-old morbidly obese female with multiple pre-existing medical conditions. She is a longstanding diabetic and has been poorly controlled. She suffers from diabetic peripheral neuropathy. She developed a right Charcot foot deformity, with collapse of her right arch. Her condition resulted in a right below-knee amputation which was performed at [facility] by Dr. Narayan on October 19, 2023. The patient had a relatively uncomplicated postoperative course. She was transferred to the [facility] rehabilitation unit, where she continued to convalesce for several weeks. Several weeks postoperatively, Dr. Damon's staff removed the patient's surgical luisana, and the patient subsequently developed a dehiscence. She was referred to the [facility] for management of her right below-knee amputation stump incisional dehiscence. The patient had been using Neosporin and gauze topically. She had also been using a Coban wrap and has been fitted with a stump instructor hairspring by [employer]. The patient's multiple pre-existing medical conditions are listed elsewhere. Of note, she underwent right breast needle biopsy on November 26, 2023, which was indicative of invasive ductal carcinoma. She is under the care of other providers for management of this recent diagnosis, including her surgeon, Dr. Knapp. On March 15, 2024, the patient underwent right mastectomy with sentinel lymph node biopsy. The patient is in the recovery phase from her recent mastectomy, and has experienced a surgical wound dehiscence of her mastectomy incision. [facility] Medical History Dehiscence of incision Invasive ductal carcinoma of right breast in female GERD (gastroesophageal reflux disease) Hyperlipidemia Tinea cruris Non-pressure chronic ulcer of right calf with fat layer exposed Wears glasses Post-menopausal Cancer Anxiety Open wound Thyroid disease Insulin dependent diabetes mellitus Uses wheelchair Fatty liver High cholesterol Dietary restriction Non-smoker History of edema History of echocardiogram History of stress test Cardiology follow-up encounter Surgical wound dehiscence Right leg swelling History of endometrial cancer Rheumatoid arthritis Diverticulosis Chronic renal failure, stage 3 (moderate) Pulmonary hypertension GERD (gastroesophageal reflux disease) Hyperlipidemia History of kidney stones Breast cancer in female Morbid obesity with BMI of 50.0-59.9, adult Hydronephrosis Ureteral calculus Charcot ankle Diabetic neuropathy Morbid obesity with BMI of 50.0-59.9, adult Diverticulosis Diabetes mellitus, type 2 Chronic renal failure (CRF), stage 3a Anemia Rheumatoid arthritis Chronic pain CPAP (continuous positive airway pressure) dependence Pulmonary hypertension BRITT (obstructive sleep apnea) Thyromegaly Hx of supraventricular tachycardia Nephrolithiasis Rosacea Fatty liver External hemorrhoid GERD without esophagitis Benign essential HTN Bilateral carpal tunnel syndrome Hyperlipidemia Low vitamin B12 level Multinodular goiter Tubular adenoma Adenocarcinoma of endometrium Home Medications ?Medication ?Instructions ?Recorded ?Last Taken ?Type aspirin 81 mg tablet,delayed 81 mg PO DAILY Heart health 01/11/16 03/06/24 History release cetirizine 10 mg capsule 10 mg PO DAILY Allergies 01/11/16 03/15/24 History metoprolol succinate 100 mg 100 mg PO DAILY BP 01/11/16 03/15/24 History tablet,extended release 24 hr multivitamin 1 ea PO DAILY Supplement 01/11/16 03/14/24 History omeprazole 40 mg capsule,delayed 40 mg PO DAILY GERD 01/11/16 03/15/24 History release simvastatin 20 mg tablet 20 mg PO QHS Cholestrol 01/11/16 03/14/24 History cyanocobalamin (vitamin B-12) 1,000 mcg PO DAILY Supplement 07/02/17 03/14/24 History 1,000 mcg sublingual tablet hydroxychloroquine 200 mg tablet 200 mg PO BID Platelets 04/28/18 03/14/24 History (Plaquenil) pregabalin 150 mg capsule (Lyrica) 150 mg PO QHS NERVE PAIN 06/14/18 03/15/24 History ferrous sulfate 325 mg (65 mg 325 mg PO DAILY supplement 04/25/20 03/14/24 History iron) tablet (Feosol) allopurinol 100 mg tablet 100 mg PO DAILY #30 tabs 11/18/23 03/14/24 Rx ascorbic acid (vitamin C) 500 mg 1,000 mg (2 x 500 mg) PO DAILY #30 11/18/23 03/14/24 Rx tablet tabs calcium carbonate (Oyster Shell 500 mg PO BREAKFAST #30 tabs 11/18/23 03/14/24 Rx Calcium 500) blood sugar diagnostic (OneTouch #100 ea 12/03/23 Unknown Rx Ultra Test strips) OneTouch Delica Plus Lancet 33 #100 ea 12/04/23 Unknown Rx gauge (lancets) blood sugar diagnostic (OneTouch #100 ea 12/04/23 Unknown Rx Ultra Test strips) buspirone 5 mg tablet 5 mg PO TID #90 tabs 12/11/23 03/15/24 Rx alprazolam 0.5 mg tablet (Xanax) 0.5 mg PO TID PRN PRN panic attack 12/25/23 12/07/23 History fiber 1 cap PO DAILY 12/25/23 03/14/24 History oxycodone 5 mg capsule 5 mg PO Q6H PRN PRN pain 12/25/23 12/21/23 History anastrozole 1 mg tablet (Arimidex) 1 mg PO DAILY #90 tabs 02/24/24 03/15/24 Rx escitalopram oxalate 10 mg tablet 10 mg PO DAILY 03/03/24 03/14/24 History insulin regular hum U-500 conc 500 15 unit subcut LUNCH 03/04/24 03/14/24 History unit/mL(3 mL) subcut pen insulin regular hum U-500 conc 500 35 unit subcut DINNER 03/04/24 03/14/24 History unit/mL(3 mL) subcut pen insulin regular hum U-500 conc 500 35 unit subcut QHS 03/04/24 03/14/24 History unit/mL(3 mL) subcut pen insulin regular hum U-500 conc 500 175 unit subcut BREAKFAST Blood 03/04/24 03/15/24 History unit/mL(3 mL) subcut pen sugar semaglutide 2 mg/dose (8 mg/3 mL) 1 mg subcut TH 03/04/24 02/25/24 History subcutaneous pen injector (Ozempic) insulin lispro 100 unit/mL 3 unit subcut TID PRN BLOOD SUGARS 03/15/24 Unknown History subcutaneous pen insulin lispro 100 unit/mL See Protocol subcut DAILY PRN 03/15/24 03/13/24 History subcutaneous pen elevated BS pregabalin 100 mg capsule (Lyrica) 100 mg PO BID NERVE PAIN 03/15/24 03/15/24 History acetaminophen 325 mg tablet 650 mg (2 x 325 mg) PO Q6H PRN PRN 03/16/24 Unknown Rx Pain Score 1-10 #0 tabs doxycycline hyclate 100 mg capsule 100 mg PO BID #10 caps 04/15/24 Unknown Rx blood-glucose sensor (Dexcom G7 #3 ea 04/21/24 Unknown Rx Sensor device) silver sulfadiazine 1 % topical 1 applic topical BID #25 grams 04/21/24 Unknown Rx cream (Silvadene) losartan 50 mg tablet (Cozaar) 50 mg PO DAILY #90 tabs 04/27/24 Unknown Rx levothyroxine 300 mcg tablet See Rx Instructions PO DAILY #96 05/05/24 Unknown Rx tabs Allergy/AdvReac Type Severity Reaction Status Date / Time No Known Allergies Allergy Verified 04/26/24 14:03 Family History Mother Ovarian cancer Hypertension Arthritis Uterine cancer Fibrocystic disease of breast Hypothyroid Father , Age 86-CHF Hypertension Arthritis Diverticulitis of colon Depression CAD (coronary artery disease) Sister Hypertension Depression CVA (cerebral vascular accident) Fibrocystic disease of breast Diabetes Bleeding disorder Portal hypertension Surgical History History of right mastectomy Status post right mastectomy History of cardiac catheterization Hx of cystoscopy Hx of total thyroidectomy History of tonsillectomy History of carpal tunnel release History of cardiac radiofrequency ablation History of total abdominal hysterectomy and bilateral salpingo-oophorectomy History of below-knee amputation S/P cystoscopy with ureteral stent placement History of right below knee amputation History of hand surgery H/O cardiac radiofrequency ablation (02/15/13) History of right and left heart catheterization (07/03/17) H/O colonoscopy H/O abdominal hysterectomy H/O carpal tunnel repair Previous section History of tonsillectomy Hx of cholecystectomy Surgical menopause Social History Smoking Status: Never smoker second hand exposure: No alcohol intake: never substance use type: does not use caffeine: No Vital Signs Vital Signs Vital Signs: 05/17/24 13:25 Temperature 97 F L Temperature Source Temporal Pulse Rate 77 Respiratory Rate 18 Blood Pressure 138/55 H Blood Pressure Mean 82 Blood Pressure Source Monitor Blood Pressure Position Semi-Fowlers Blood Pressure Location Left Arm Weight Weight: 335 lb Body Mass Index (BMI) 54.1 Physical Exam Const alert, oriented x3, no apparent distress, no limitations, healthy appearing and well nourished Constitutional Narrative: The patient is morbidly obese. General Appearance: cooperative, comfortable, well kempt and well developed Orientation / Consciousness: awake, oriented to person, oriented to place and oriented to time Exam Limitations: no limitations Nutritional Appearance: overweight HEENT normocephalic and head/scalp atraumatic Head and Scalp: normal to inspection Face and Sinus: normal facial exam Nose: external nose normal External Ear: external ears normal Eyes EOMs intact bilaterally Neck full ROM Resp normal respiratory effort, normal air movement, no retractions and no use of accessory muscles Effort and Inspection: able to speak in complete sentences and symmetric chest movement Skin Wound Narrative: A right below-knee amputation is noted. The dehiscent wound on the right below-knee amputation incision had been verified as healed recently, but has now reopened. There is now a superficial wound at this site. There is no sign of infection or cellulitis. The base of the wound is generally pink and healthy in appearance, with a small amount of bioburden. The wound extends into the subcutaneous tissues, and dimensions are documented elsewhere. With respect to the patient's recent mastectomy, performed on March 15, 2024, she has experienced a surgical wound dehiscence. A horizontal mastectomy incision is noted. A large portion of the incision is intact, though 2 portions demonstrate dehiscence. These 2 areas, involving the medial incision, and the right lateral incision, demonstrate extension into the subcutaneous tissues. There is no sign of infection or cellulitis. There is a moderate amount of bioburden and nonviable tissue. The dimensions of the mastectomy incisional dehiscence are documented elsewhere. Improvement is noted, with evidence of peripheral epithelialization. A former Ney-Mckeon drain site appears to be healed. Hair: normal Neuro oriented x3, CN's II-XII intact bilaterally, moves all extremities, no focal motor deficits and no sensory deficits noted Sensorium / Orientation: awake, alert, oriented to person, oriented to place and oriented to time Debridement Note Debridement Note Wound debrided: Dehiscent right mastectomy incision Laterality: Right Type of Debridement: Excisional debridement Anesthesia Used: 5% Lidocaine Gel and Cetacaine Depth: Down to and including healthy tissue and in the subcutaneous layer Percentage of wound debrided: 100 Instrument Used: 3mm curette Tissue Removed: Bioburden and nonviable tissue Severity: Fat Layer Exposed Amount of bleeding with debridement: Mild Bleeding Controlled with: Compression and gauze Patient tolerated procedure: Patient tolerated procedure well Post-Debridement Measurements and Additional Note: Post-Debridement Measurements/Treatment WC - Nurse 1 - General Ulcer Assessment Start: 04/26/24 15:03 Freq: Status: Active Protocol: MATT Activity Type Activity Date Activity User E-sign Co-sign Detail Recorded Client Recorded Date Recorded By Document 04/26/24 15:04 RB [id number] 04/26/24 15:07 RB Document 05/03/24 15:01 KW [id number] 05/03/24 15:15 KW Document 05/10/24 14:51 KW [id number] 05/10/24 15:08 KW Document 05/17/24 13:25 RB [id number] 05/17/24 13:28 RB 04/26/24 05/03/24 05/10/24 15:04 15:01 14:51 - Today's Visit Information Type of service Follow-up Visit Follow-up Visit Follow-up Visit (Physician/SECURITY PROFESSIONAL (Physician/SECURITY PROFESSIONAL (Physician/SECURITY PROFESSIONAL ) ) ) Arrival Mode Wheelchair Wheelchair Wheelchair Transfer Assistance Manual Accompanied by Patient Identification Verified (Name & Yes Yes Yes ) Patient Requires Transmission-Based No Precautions Height and Weight Body Mass Index (BMI) 54.1 54.1 54.1 BMI Classification Obese Obese Obese Vital Signs Temperature (97.8 F-99.1 F) 97.3 F L 97.8 F 97.6 F L Temperature Source Temporal Temporal Temporal Pulse Rate (60-100) 104 H 82 103 H Pulse Location Monitor Monitor Monitor Respiratory Rate (12-18) 18 18 18 Respiratory rate source Observation Observation Observation Oxygen Delivery Method Room Air Room Air Blood Pressure (90/60-120/80) 148/80 H 151/40 H 145/76 H Blood Pressure Mean 102 77 99 Source Monitor Monitor Monitor Position Semi-Fowlers Sitting Sitting Blood Pressure Location Left Arm Left Arm Left Arm History Since Last Visit- (Skip if this is Patient's initial visit) Have you changed medications since your No No No last visit? Any new allergies or adverse reactions No No No Had a fall/change in ADL's that may No No No increase risk of falls Signs or symptoms of abuse and/or No No No neglect since last visit Have you been in the hospital since your No No No last visit? Has dressing in place as prescribed Yes Yes Yes Has compression in place as prescribed No Yes Yes Has offloadiing in place as prescribed No N/A Yes Experienced any changes in pain level or No No No management Left Footwear Regular Shoe Regular Shoe Right Footwear No Footwear No Footwear Pain Scale: 0-10 Numeric Is Patient Pain Free? Yes Yes Yes 05/17/24 13:25 - Today's Visit Information Type of service Follow-up Visit (Physician/SECURITY PROFESSIONAL ) Arrival Mode Ambulatory Transfer Assistance None Accompanied by Patient Identification Verified (Name & Yes ) Patient Requires Transmission-Based No Precautions Height and Weight Body Mass Index (BMI) 54.1 BMI Classification Obese Vital Signs Temperature (97.8 F-99.1 F) 97 F L Temperature Source Temporal Pulse Rate (60-100) 77 Pulse Location Monitor Respiratory Rate (12-18) 18 Respiratory rate source Observation Oxygen Delivery Method Blood Pressure (90/60-120/80) 138/55 H Blood Pressure Mean 82 Source Monitor Position Semi-Fowlers Blood Pressure Location Left Arm History Since Last Visit- (Skip if this is Patient's initial visit) Have you changed medications since your No last visit? Any new allergies or adverse reactions No Had a fall/change in ADL's that may No increase risk of falls Signs or symptoms of abuse and/or No neglect since last visit Have you been in the hospital since your No last visit? Has dressing in place as prescribed Yes Has compression in place as prescribed No Has offloadiing in place as prescribed No Experienced any changes in pain level or No management Left Footwear Right Footwear Pain Scale: 0-10 Numeric Is Patient Pain Free? Yes - Nurse 1 - General Ulcer Measurement Start: 04/26/24 15:03 Freq: Status: Active Protocol: Activity Type Activity Date Activity User E-sign Co-sign Detail Recorded Client Recorded Date Recorded By Document 04/26/24 15:04 RB [id number] 04/26/24 15:07 RB Document 05/03/24 15:01 KW [id number] 05/03/24 15:15 KW Document 05/10/24 14:51 KW [id number] 05/10/24 15:08 KW Document 05/17/24 13:25 RB [id number] 05/17/24 13:28 RB 04/26/24 05/03/24 05/10/24 15:04 15:01 14:51 Wound Center Nurse 1 #4 MED CHEST- cluster -Current Size (cm) - Length 0.7 -Current Size (cm) - Width 3 -Current Size (cm) - Depth 0.3 -Total Square Cm 2.1 -Date of Last Picture (Recall this 05/03/24 field) -Exudate Amt Small -Exudate Type Serosanguineous -Wound Margin Distinct, Outline Attached -Granulation Amt Small (1-33%) -Granulation Quality [place],Red -Necrosis Amt Large (67-100%) -Necrotic Tissue Type Adherent Slough -Texture (Fadumo-wound Skin Appearance) Assessed, Excoriation -Moisture (Fadumo-wound Skin Appearance) Assessed -Color (Fadumo-wound Skin Appearance) Assessed -Temperature (Fadumo-wound Skin No Abnormality Appearance) (Pt Warm) -Tenderness on Palpation (Fadumo-wound No Skin Appearance) -Ulcer Cleansing Rinsed/ Irrigated with Saline -Foul Odor after Cleansing No -Anesthetic Used 5% Lidocaine Gel #3 right chest surgical incision- cluster -Combined with other wound -Current Size (cm) - Length 6 1 -Current Size (cm) - Width 1 10.2 -Current Size (cm) - Depth 0.2 0.4 -Total Square Cm 6 10.2 -Date of Last Picture (Recall this 05/10/24 field) -Photo Taken -Tunneling -Undermining/Tunneling -Circular Undermining -Exudate Amt Small Small -Exudate Type Serosanguineous Serosanguineous -Wound Margin Distinct, Distinct, Outline Outline Attached Attached -Granulation Amt Medium (34-66%) Medium (34-66%) -Granulation Quality Trafalgar,Red [place]falgar -Slough/Fibrin -Necrosis Amt Medium (34-66%) Medium (34-66%) -Necrotic Tissue Type Adherent Slough Adherent Slough -Structure Exposed -Texture (Fadumo-wound Skin Appearance) Assessed, Assessed Excoriation -Moisture (Fadumo-wound Skin Appearance) Assessed Assessed -Color (Fadumo-wound Skin Appearance) Assessed, Assessed, Erythema Erythema -Temperature (Fadumo-wound Skin No Abnormality No Abnormality Appearance) (Pt Warm) (Pt Warm) -Tenderness on Palpation (Fadumo-wound No No Skin Appearance) -Ulcer Cleansing Rinsed/ Soap and Water Irrigated with Saline -Foul Odor after Cleansing No No -Anesthetic Used 5% Lidocaine 5% Lidocaine Gel Gel #1 RT stump cluster-rec -Combined with other wound No -Current Size (cm) - Length 0.1 0 0.9 -Current Size (cm) - Width 0.1 0 1 -Current Size (cm) - Depth 0.1 0 0.1 -Total Square Cm 0.01 0 0.9 -Date of Last Picture (Recall this 05/03/24 05/10/24 field) -Photo Taken Yes -Tunneling No -Undermining/Tunneling No -Circular Undermining No -Exudate Amt Medium Small -Exudate Type Serosanguineous Serosanguineous -Wound Margin Distinct, Distinct, Outline Outline Attached Attached -Granulation Amt Medium (34-66%) Large (67-100%) -Granulation Quality [place] Red -Slough/Fibrin Yes -Necrosis Amt Medium (34-66%) -Necrotic Tissue Type Adherent Slough -Structure Exposed N/A -Texture (Fadumo-wound Skin Appearance) Assessed, Assessed Scarring -Moisture (Fadumo-wound Skin Appearance) Assessed Assessed -Color (Fadumo-wound Skin Appearance) Assessed Assessed -Temperature (Fadumo-wound Skin No Abnormality No Abnormality Appearance) (Pt Warm) (Pt Warm) -Tenderness on Palpation (Fadumo-wound No No Skin Appearance) -Ulcer Cleansing Wound Cleanser -Foul Odor after Cleansing No No -Anesthetic Used 5% Lidocaine 5% Lidocaine Gel Gel 05/17/24 13:25 Wound Center Nurse 1 #4 MED CHEST- cluster -Current Size (cm) - Length -Current Size (cm) - Width -Current Size (cm) - Depth -Total Square Cm -Date of Last Picture (Recall this field) -Exudate Amt -Exudate Type -Wound Margin -Granulation Amt -Granulation Quality -Necrosis Amt -Necrotic Tissue Type -Texture (Fadumo-wound Skin Appearance) -Moisture (Fadumo-wound Skin Appearance) -Color (Fadumo-wound Skin Appearance) -Temperature (Fadumo-wound Skin Appearance) -Tenderness on Palpation (Fadumo-wound Skin Appearance) -Ulcer Cleansing -Foul Odor after Cleansing -Anesthetic Used #3 right chest surgical incision- cluster -Combined with other wound No -Current Size (cm) - Length 0.5 -Current Size (cm) - Width 2.5 -Current Size (cm) - Depth 0.3 -Total Square Cm 1.25 -Date of Last Picture (Recall this field) -Photo Taken Yes -Tunneling No -Undermining/Tunneling No -Circular Undermining No -Exudate Amt Medium -Exudate Type Serosanguineous -Wound Margin Distinct, Outline Attached -Granulation Amt Medium (34-66%) -Granulation Quality [place]falgar -Slough/Fibrin Yes -Necrosis Amt Medium (34-66%) -Necrotic Tissue Type Adherent Slough -Structure Exposed N/A -Texture (Fadumo-wound Skin Appearance) Assessed, Scarring -Moisture (Fadumo-wound Skin Appearance) Assessed -Color (Fadumo-wound Skin Appearance) Assessed -Temperature (Fadumo-wound Skin No Abnormality Appearance) (Pt Warm) -Tenderness on Palpation (Fadumo-wound No Skin Appearance) -Ulcer Cleansing Wound Cleanser -Foul Odor after Cleansing No -Anesthetic Used 5% Lidocaine Gel #1 RT stump cluster-rec -Combined with other wound No -Current Size (cm) - Length 1.2 -Current Size (cm) - Width 1.7 -Current Size (cm) - Depth 0.1 -Total Square Cm 2.04 -Date of Last Picture (Recall this field) -Photo Taken -Tunneling No -Undermining/Tunneling No -Circular Undermining No -Exudate Amt Medium -Exudate Type Serosanguineous -Wound Margin Distinct, Outline Attached -Granulation Amt Medium (34-66%) -Granulation Quality [place] -Slough/Fibrin Yes -Necrosis Amt Medium (34-66%) -Necrotic Tissue Type Adherent Slough -Structure Exposed N/A -Texture (Fadumo-wound Skin Appearance) Scarring -Moisture (Fadumo-wound Skin Appearance) Assessed -Color (Fadumo-wound Skin Appearance) Assessed -Temperature (Fadumo-wound Skin No Abnormality Appearance) (Pt Warm) -Tenderness on Palpation (Fadumo-wound No Skin Appearance) -Ulcer Cleansing Wound Cleanser -Foul Odor after Cleansing No -Anesthetic Used 5% Lidocaine Gel WC - Nurse 2 - General Ulcer CM Notes Start: 04/26/24 15:03 Freq: Status: Active Protocol: Activity Type Activity Date Activity User E-sign Co-sign Detail Recorded Client Recorded Date Recorded By Document 04/26/24 15:32 DS [id number] 04/26/24 15:42 DS Edit Result 04/26/24 15:32 DS (1) [id number] 04/27/24 13:29 DS Document 05/03/24 15:24 DS [id number] 05/03/24 15:34 DS Edit Result 05/03/24 15:24 DS (2) [id number] 05/03/24 16:02 DS Document 05/10/24 15:11 DS [id number] 05/10/24 15:22 DS Document 05/17/24 13:46 DS [id number] 05/17/24 13:51 DS (1) #3 right chest surgical incision- cluster - Debridement - Subq, 1st 20sq cm Yes => No (2) #4 MED CHEST- cluster - Tissue Removed Subcutaneous => - Tunneling No => - Undermining/Tunneling No => - Circular Undermining No => - Wound/Ulcer Outcome Not Healed => - Ulcer Cleansing Rinsed/Irrigated => with Saline => - Bleeding Controlled with Pressure => - Treatment Response Procedure => Tolerated Well => - Debridement - Subq, 1st 20sq cm Yes => 04/26/24 05/03/24 05/10/24 15:32 15:24 15:11 Wound Center Nurse 2 #4 MED CHEST- cluster -Bioengineered Tissue No #3 right chest surgical incision- cluster -Time 15:36 15:27 15:14 -Correct Patient Yes Yes Yes -Correct Side, Site, Position Yes Yes Yes -Correct Procedure Yes Yes Yes -Procedure Performed Yes Yes Yes -Type of Procedure Debridement Debridement Debridement -Clinical Debridement Subcutaneous Subcutaneous Subcutaneous -Tissue Removed Subcutaneous Subcutaneous Subcutaneous -Post Debridement (cm) - Length 1.2 1.0 0.8 -Post Debridement (cm) - Width 7.4 15.5 18.2 -Post Debridement (cm) - Depth 0.5 0.4 0.3 -Total Square (Post) (cm) 8.88 15.50 14.56 -Area of Debridement (cm) - Length 1.2 1.0 0.8 -Area of Debridement (cm) - Width 7.4 15.5 18.2 -Total Square (Area) (cm) 8.88 15.50 14.56 -Tunneling No No No -Undermining/Tunneling No No No -Circular Undermining No No No -Wound/Ulcer Outcome Not Healed Not Healed Not Healed -Ulcer Cleansing Rinsed/ Rinsed/ Rinsed/ Irrigated with Irrigated with Irrigated with Saline Saline Saline -Bioengineered Tissue No No No -Bleeding Controlled with Pressure Pressure Pressure -Treatment Response Procedure Procedure Procedure Tolerated Well Tolerated Well Tolerated Well -Debridement - Subq, 1st 20sq cm No Yes No #1 RT stump cluster-rec -Time 15:33 15:25 15:12 -Correct Patient Yes Yes -Correct Side, Site, Position Yes Yes -Correct Procedure Yes Yes -Procedure Performed Yes No Yes -Type of Procedure Debridement Debridement -Clinical Debridement Subcutaneous Subcutaneous -Tissue Removed Subcutaneous Subcutaneous -Post Debridement (cm) - Length 0.5 1.4 -Post Debridement (cm) - Width 0.3 1.9 -Post Debridement (cm) - Depth 0.1 0.1 -Total Square (Post) (cm) 0.15 2.66 -Area of Debridement (cm) - Length 0.5 1.4 -Area of Debridement (cm) - Width 0.3 1.9 -Total Square (Area) (cm) 0.15 2.66 -Tunneling No No -Undermining/Tunneling No No -Circular Undermining No No -Wound/Ulcer Outcome Not Healed Healed- Not Healed Epithelialized -Ulcer Cleansing Rinsed/ Rinsed/ Irrigated with Irrigated with Saline Saline -Bioengineered Tissue No No -Bleeding Controlled with Pressure Pressure -Treatment Response Procedure Procedure Tolerated Well Tolerated Well -Debridement - Subq, 1st 20sq cm Yes Yes Pain Scale: 0-10 Numeric Is Patient Pain Free? Yes Yes Yes 05/17/24 13:46 Wound Center Nurse 2 #4 MED CHEST- cluster -Bioengineered Tissue #3 right chest surgical incision- cluster -Time 13:46 -Correct Patient Yes -Correct Side, Site, Position Yes -Correct Procedure Yes -Procedure Performed Yes -Type of Procedure Debridement -Clinical Debridement Subcutaneous -Tissue Removed Subcutaneous -Post Debridement (cm) - Length 12.1 -Post Debridement (cm) - Width 0.5 -Post Debridement (cm) - Depth 0.3 -Total Square (Post) (cm) 6.05 -Area of Debridement (cm) - Length 12.1 -Area of Debridement (cm) - Width 0.5 -Total Square (Area) (cm) 6.05 -Tunneling No -Undermining/Tunneling No -Circular Undermining No -Wound/Ulcer Outcome Not Healed -Ulcer Cleansing Rinsed/ Irrigated with Saline -Bioengineered Tissue No -Bleeding Controlled with -Treatment Response -Debridement - Subq, 1st 20sq cm Yes #1 RT stump cluster-rec -Time 13:47 -Correct Patient Yes -Correct Side, Site, Position Yes -Correct Procedure Yes -Procedure Performed Yes -Type of Procedure Debridement -Clinical Debridement Subcutaneous -Tissue Removed Subcutaneous -Post Debridement (cm) - Length 1.4 -Post Debridement (cm) - Width 1.6 -Post Debridement (cm) - Depth 0.1 -Total Square (Post) (cm) 2.24 -Area of Debridement (cm) - Length 1.4 -Area of Debridement (cm) - Width 1.6 -Total Square (Area) (cm) 2.24 -Tunneling No -Undermining/Tunneling No -Circular Undermining No -Wound/Ulcer Outcome Not Healed -Ulcer Cleansing Rinsed/ Irrigated with Saline -Bioengineered Tissue No -Bleeding Controlled with Pressure -Treatment Response Procedure Tolerated Well -Debridement - Subq, 1st 20sq cm No Pain Scale: 0-10 Numeric Is Patient Pain Free? Yes WC - Nurse 3 - General Ulcer D/C NN Start: 04/26/24 15:03 Freq: Status: Active Protocol: Activity Type Activity Date Activity User E-sign Co-sign Detail Recorded Client Recorded Date Recorded By Document 04/26/24 16:03 RB [id number] 04/26/24 16:05 RB Document 05/03/24 15:43 KW [id number] 05/03/24 15:44 KW Document 05/10/24 15:27 RB [id number] 05/10/24 15:29 RB Document 05/17/24 14:12 KW [id number] 05/17/24 14:13 KW 04/26/24 05/03/24 05/10/24 16:03 15:43 15:27 Wound Care Center Nurse 3 #3 right chest surgical incision- cluster -Ulcer Cleansing Rinsed/ Rinsed/ Irrigated with Irrigated with Saline Saline -Primary Dressing Applied C Hydrogel ($), Optilok 6.5x10, Mepilex Border Mepilex Border Optilok 8x12 -Other Dressing hydrogel hydrogel -Mepilex Border 1 1 -Optilok 6.5x10 1 -Optilok 8x12 1 #1 RT stump cluster-rec -Primary Dressing Applied Mepilex Border -Other Dressing hydrogel / hydrogel gauze -Primary Dressing Covered/Secured with Dry Gauze -Mepilex Border 1 Right -Compression Wrap -Other jozef jozef Treatment Response Procedure Procedure Tolerated Well Tolerated Well Pain Scale: 0-10 Numeric Is Patient Pain Free? Yes Yes Yes WC - Visit Discharge Discharge Condition Stable Stable Stable Ambulatory Status Wheelchair Wheelchair Wheelchair Transportation Private Auto Private Auto Private Auto Accompanied by Medication Reconcilliation completed & No No No provided to patient/care provider Clinical Summary of Care Provided Yes Yes Yes 05/17/24 14:12 Wound Care Center Nurse 3 #3 right chest surgical incision- cluster -Ulcer Cleansing -Primary Dressing Applied Mepilex Border -Other Dressing col. hydrogel -Mepilex Border 1 -Optilok 6.5x10 -Optilok 8x12 #1 RT stump cluster-rec -Primary Dressing Applied -Other Dressing col. hydrogel -Primary Dressing Covered/Secured with Dry Gauze & Roll Gauze, Secured with Tape -Mepilex Border Right -Compression Wrap Jozef Wrap -Other Treatment Response Pain Scale: 0-10 Numeric Is Patient Pain Free? Yes WC - Visit Discharge Discharge Condition Stable Ambulatory Status Wheelchair Transportation Accompanied by Medication Reconcilliation completed & provided to patient/care provider Clinical Summary of Care Provided Additional Wound Wound debrided: Dehiscent right below-knee amputation stump incision Laterality: Right Type of Debridement: Excisional debridement Anesthesia Used: 5% Lidocaine Gel and Cetacaine Depth: Down to and including healthy tissue and in the subcutaneous layer Percentage of wound debrided: 100 Instrument Used: 5mm curette Tissue Removed: Bioburden Severity: Fat Layer Exposed Amount of bleeding with debridement: Mild Bleeding Controlled with: Compression and gauze Patient tolerated procedure: Patient tolerated procedure well Charges/Coding Procedures Integumentary [id number]: [id number] Padmini subq tissue 20 sq cm/< Assessment/Plan Assessment/Plan (1) Dehiscence of incision: CODE(S): T81.31XA - Disruption of external operation (surgical) wound, not elsewhere classified, initial encounter QUALIFIERS: Encounter type: subsequent encounter Qualified Code(s): T81.31XD - Disruption of external operation (surgical) wound, not elsewhere classified, subsequent encounter (2) History of right mastectomy: CODE(S): Z90.11 - Acquired absence of right breast and nipple (3) Non-pressure chronic ulcer of right calf with fat layer exposed: CODE(S): L97.212 - Non-pressure chronic ulcer of right calf with fat layer exposed (4) Surgical wound dehiscence: CODE(S): T81.31XA - Disruption of external operation (surgical) wound, not elsewhere classified, initial encounter QUALIFIERS: Encounter type: subsequent encounter Qualified Code(s): T81.31XD - Disruption of external operation (surgical) wound, not elsewhere classified, subsequent encounter (5) History of right below knee amputation: CODE(S): Z89.511 - Acquired absence of right leg below knee (6) Morbid obesity with BMI of 50.0-59.9, adult: CODE(S): E66.01 - Morbid (severe) obesity due to excess calories; Z68.43 - Body mass index [BMI] 50.0-59.9, adult (7) Diabetes mellitus, type 2: CODE(S): E11.9 - Type 2 diabetes mellitus without complications QUALIFIERS: Diabetes mellitus ad terminal makeup operator insulin use: with ad terminal makeup operator use Diabetes mellitus complication status: with kidney complications Diabetes mellitus complication detail: with chronic kidney disease Chronic kidney disease stage: stage 3 (moderate) Chronic kidney disease stage 3 subtype: stage 3a (GFR 45-59) Qualified Code(s): E11.22 - Type 2 diabetes mellitus with diabetic chronic kidney disease; N18.31 - Chronic kidney disease, stage 3a; Z79.4 - nursing home (current) use of insulin (8) Below knee amputation: CODE(S): S88.119A - 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, unspecified lower leg, initial encounter QUALIFIERS: Encounter type: sequela Laterality: bilateral Qualified Code(s): S88.111S - 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, right lower leg, sequela; S88.112S - 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, left lower leg, sequela (9) Hypothyroid: CODE(S): E03.9 - Hypothyroidism, unspecified QUALIFIERS: Hypothyroidism type: acquired Qualified Code(s): E03.9 - Hypothyroidism, unspecified (10) Benign essential HTN: CODE(S): I10 - Essential (primary) hypertension (11) Breast cancer in female: CODE(S): C50.919 - Malignant neoplasm of unspecified site of unspecified female breast QUALIFIERS: Breast location: unspecified site of breast Estrogen receptor status: positive Laterality: right Qualified Code(s): C50.911 - Malignant neoplasm of unspecified site of right female breast; Z17.0 - Estrogen receptor positive status [ER+] (12) Physical debility: CODE(S): R53.81 - Other malaise (13) Right leg swelling: CODE(S): M79.89 - Other specified soft tissue disorders (14) Hyperlipidemia: CODE(S): E78.5 - Hyperlipidemia, unspecified (15) GERD (gastroesophageal reflux disease): CODE(S): K21.9 - Gastro-esophageal reflux disease without esophagitis (16) History of below-knee amputation: CODE(S): Z89.519 - Acquired absence of unspecified leg below knee QUALIFIERS: Laterality: right Qualified Code(s): Z89.511 - Acquired absence of right leg below knee (17) History of total abdominal hysterectomy and bilateral salpingo-oophorectomy: CODE(S): Z90.710 - Acquired absence of both cervix and uterus; Z90.722 - Acquired absence of ovaries, bilateral; Z90.79 - Acquired absence of other genital organ(s) (18) History of cardiac radiofrequency ablation: CODE(S): Z98.890 - Other specified postprocedural states (19) History of carpal tunnel release: CODE(S): Z98.890 - Other specified postprocedural states (20) Hx of cholecystectomy: CODE(S): Z98.890 - Other specified postprocedural states; Z90.49 - Acquired absence of other specified parts of digestive tract (21) History of tonsillectomy: CODE(S): Z90.89 - Acquired absence of other organs (22) BRITT (obstructive sleep apnea): CODE(S): G47.33 - Obstructive sleep apnea (adult) (pediatric) (23) Diabetic neuropathy: CODE(S): E11.40 - Type 2 diabetes mellitus with diabetic neuropathy, unspecified QUALIFIERS: Diabetes mellitus type: type 2 Diabetes mellitus complication detail: diabetic polyneuropathy Qualified Code(s): E11.42 - Type 2 diabetes mellitus with diabetic polyneuropathy (24) Rheumatoid arthritis: CODE(S): M06.9 - Rheumatoid arthritis, unspecified (25) Pulmonary hypertension: CODE(S): I27.20 - Pulmonary hypertension, unspecified PLAN: Plan This is a 63-year-old female with multiple pre-existing medical problems, who presented with a 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 The right below-knee amputation was performed on October 19, 2023, at [facility]. Upon removal of her surgical luisana several weeks postoperatively, she developed a surgical wound dehiscence and was referred to the [facility] for definitive management. Measures have been implemented to minimize swelling in her right lower extremity, and have included leg elevation and sleeping on a flat mattress at night. The right below-knee amputation incisional dehiscence was noted to be completely healed recently, but a wound has reemerge at this site. She cannot account for a reason for its recurrence. She does not specifically recall trauma to the area. The patient also has a dehiscent right mastectomy incision. The mastectomy wound appears to be slightly improved, and an excisional debridement has been performed. We are to continue the use of collagen hydrogel topically to both dehiscent wounds. The collagen hydrogel will be applied topically on a daily basis. The patient has been encouraged to optimize her nutritional intake and assure good control of her diabetes mellitus. She indicates that she continues to take a nutritional supplement on a regular basis. The patient has recently met with her oncologist, who has indicated that chemotherapy may be appropriate for her in the coming months. Wound healing as a prelude to chemotherapy is preferred. The patient is to return to the Wound Center in 1 week for reassessment. We are to consider the use of skin substitute (EpiFix) topically to the right lower extremity below-knee amputation stump dehiscence in the near future. The patient is scheduled to see her prosthetists on May 25, 2024. Total time: 25 minutes
--- NOTE | 2024-05-20 10:27 | WC ---
PHOTO 05/17/24 RIGHT CHEST
[2024-05-24 15:17] VITALS: BP 122/52; PULSE 80; RESP 18; TEMP 36.4; BMI 54.1
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
--- NOTE | 2024-05-30 11:35 | WC ---
PHOTO 05/24/24 LOWER ABD
--- NOTE | 2024-05-30 11:37 | WC ---
PHOTO 05/24/24 RIGHT CHEST
== END 2024-05-26 23:59 | disposition home or self-care (01) ==
LOC: WC 15:15
PROVIDERS: PCP Nurse Practitioner Family; Referring Provider Nurse Practitioner Family; Visit Provider Surgery
DX: T81.31XA Disruption of external operation (surgical) wound, not elsewhere classified, initial encounter (principal); E11.622 Type 2 diabetes mellitus with other skin ulcer; L97.212 Non-pressure chronic ulcer of right calf with fat layer exposed; M06.9 Rheumatoid arthritis, unspecified; I27.20 Pulmonary hypertension, unspecified; E66.01 Morbid (severe) obesity due to excess calories; C50.911 Malignant neoplasm of unspecified site of right female breast; E11.22 Type 2 diabetes mellitus with diabetic chronic kidney disease; Z79.4 Long term (current) use of insulin; E11.610 Type 2 diabetes mellitus with diabetic neuropathic arthropathy; E11.42 Type 2 diabetes mellitus with diabetic polyneuropathy; N18.31 Chronic kidney disease, stage 3a; G47.33 Obstructive sleep apnea (adult) (pediatric); Z90.710 Acquired absence of both cervix and uterus; Z90.722 Acquired absence of ovaries, bilateral; Z82.3 Family history of stroke; K21.9 Gastro-esophageal reflux disease without esophagitis; Z90.11 Acquired absence of right breast and nipple; D64.9 Anemia, unspecified; Z79.85 Long-term (current) use of injectable non-insulin antidiabetic drugs; E78.5 Hyperlipidemia, unspecified; E89.0 Postprocedural hypothyroidism; Z17.0 Estrogen receptor positive status [ER+]; I12.9 Hypertensive chronic kidney disease with stage 1 through stage 4 chronic kidney disease, or unspecified chronic kidney disease; Z80.41 Family history of malignant neoplasm of ovary; S88.11 Complete traumatic amputation at level between knee and ankle; S88.112S Complete traumatic amputation at level between knee and ankle, left lower leg, sequela; M79.89 Other specified soft tissue disorders
CPT/HCPCS: 11042; 11045

== ENCOUNTER 2024-06-21 13:30 | Outpatient (RCR) | payer OTHER, SELFPAY ==
[2024-05-27 00:36] VITALS: BP 106/40; PULSE 74; RESP 18; TEMP 35.9; BMI 54.1
[2024-05-30 11:04] VITALS: BP 177/63; PULSE 77; RESP 18; TEMP 36.4; BMI 54.1
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
[2024-06-07 14:50] VITALS: BP 148/50; PULSE 76; RESP 18; TEMP 35.9; BMI 54.1
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
--- NOTE | 2024-06-09 10:32 | WC ---
PHOTO 06/07/24 LEFT LOWER ABD
--- NOTE | 2024-06-09 10:34 | WC ---
PHOTO 06/07/24 RIGHT CHEST
[2024-06-14 14:41] VITALS: BP 162/71; PULSE 100; RESP 15; TEMP 36.3; BMI 54.1
--- NOTE | 2024-06-16 14:22 | HP.PCM_ITS ---
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 use Diabetes mellitus complication status: with kidney complications Diabetes mellitus complication detail: with chronic kidney disease Chronic kidney disease stage: stage 3 (moderate) Chronic kidney disease stage 3 subtyp e: stage 3a (GFR 45-59) Qualified Code(s): E11.22 - Type 2 diabetes mellitus with diabetic chronic kidney disease; N18.31 - Chronic kidney disease, stage 3a; Z79.4 - snf (current) use of insulin (6) Physical debility: CODE(S): R53.81 - Other malaise (7) GERD (gastroesophageal reflux disease): CODE(S): K21.9 - Gastro-esophageal reflux disease without esophagitis (8) Hyperlipidemia: CODE(S): E78.5 - Hyperlipidemia, unspecified (9) Status post right mastectomy: CODE(S): Z90.11 - Acquired absence of right breast and nipple (10) Obesity: CODE(S): E66.9 - Obesity, unspecified QUALIFIERS: Obesity type: due to excess calories Obesity classification: adult class 3 (BMI >= 40) Serious obesity comorbidity presence: with serious comorbidity Body mass index: unspecified BMI Qualified Code(s): E66.01 - Morbid (severe) obesity due to excess calories (11) Hypothyroid: CODE(S): E03.9 - Hypothyroidism, unspecified QUALIFIERS: Hypothyroidism type: acquired Qualified Code(s): E03.9 - Hypothyroidism, unspecified (12) Hx of cholecystectomy: CODE(S): Z98.890 - Other specified postprocedural states; Z90.49 - Acquired absence of other specified parts of digestive tract (13) History of tonsillectomy: CODE(S): Z90.89 - Acquired absence of other organs (14) History of carpal tunnel release: CODE(S): Z98.890 - Other specified postprocedural states (15) History of cardiac radiofrequency ablation: CODE(S): Z98.890 - Other specified postprocedural states (16) History of total abdominal hysterectomy and bilateral salpingo- oophorectomy: CODE(S): Z90.710 - Acquired absence of both cervix and uterus; Z90.722 - Acquired absence of ovaries, bilateral; Z90.79 - Acquired absence of other genital organ(s) (17) History of below-knee amputation: CODE(S): Z89.519 - Acquired absence of unspecified leg below knee QUALIFIERS: Laterality: right Qualified Code(s): Z89.511 - Acquired absence of right leg below knee (18) BRITT (obstructive sleep apnea): CODE(S): G47.33 - Obstructive sleep apnea (adult) (pediatric) (19) History of endometrial cancer: CODE(S): Z85.42 - Personal history of malignant neoplasm of other parts of uterus (20) Rheumatoid arthritis: CODE(S): M06.9 - Rheumatoid arthritis, unspecified (21) Diverticulosis: CODE(S): K57.90 - Diverticulosis of intestine, part unspecified, without perforation or abscess without bleeding (22) Chronic renal failure, stage 3 (moderate): CODE(S): N18.30 - Chronic kidney disease, stage 3 unspecified QUALIFIERS: Chronic kidney disease stage 3 subtype: stage 3b (GFR 30-44) Qualified Code(s): N18.32 - Chronic kidney disease, stage 3b (23) Pulmonary hypertension: CODE(S): I27.20 - Pulmonary hypertension, unspecified (24) History of kidney stones: CODE(S): Z87.442 - Personal history of urinary calculi (25) Benign essential HTN: CODE(S): I10 - Essential (primary) hypertension (26) Hx of supraventricular tachycardia: CODE(S): Z86.79 - Personal history of other diseases of the circulatory system PLAN: Plan The patient's dehiscent right breast incisional wound remains completely healed and epithelialized. The right below-knee amputation stump dehiscence persists, and an EpiFix allograft has been placed topically. This was the second such recent allograft application. The allograft is to remain in place, undisturbed, until the patient's follow-up visit in 1 week. The patient is to continue using Silvadene 1% cream topically on her burn wound on a daily basis. The patient has nearly completed her course of doxycycline 100 mg p.o. twice daily for a total of 7 days, which was prescribed for recent burn wound culture which was positive for 2+ Staphylococcus aureus. The patient has been advised to optimize her nutritional intake and assure good control of her diabetes mellitus. The patient is to follow-up in 1 week for reevaluation. Total time: 26 minutes
[2024-06-21 13:14] VITALS: BP 134/68; PULSE 81; RESP 18; TEMP 35.8; BMI 54.1
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
== END 2024-06-25 23:59 | disposition home or self-care (01) ==
LOC: WC 13:30
PROVIDERS: PCP Nurse Practitioner Family; Referring Provider Nurse Practitioner Family; Visit Provider Surgery
DX: T21.20XA Burn of second degree of trunk, unspecified site, initial encounter (principal); M06.9 Rheumatoid arthritis, unspecified; Z89.511 Acquired absence of right leg below knee; I27.20 Pulmonary hypertension, unspecified; E66.01 Morbid (severe) obesity due to excess calories; E11.29 Type 2 diabetes mellitus with other diabetic kidney complication; Z79.4 Long term (current) use of insulin; E11.610 Type 2 diabetes mellitus with diabetic neuropathic arthropathy; E11.42 Type 2 diabetes mellitus with diabetic polyneuropathy; E11.22 Type 2 diabetes mellitus with diabetic chronic kidney disease; N18.32 Chronic kidney disease, stage 3b; N18.31 Chronic kidney disease, stage 3a; E89.0 Postprocedural hypothyroidism; Z90.722 Acquired absence of ovaries, bilateral; K57.90 Diverticulosis of intestine, part unspecified, without perforation or abscess without bleeding; Z90.710 Acquired absence of both cervix and uterus; Z90.11 Acquired absence of right breast and nipple; E78.5 Hyperlipidemia, unspecified; G47.33 Obstructive sleep apnea (adult) (pediatric); I12.9 Hypertensive chronic kidney disease with stage 1 through stage 4 chronic kidney disease, or unspecified chronic kidney disease; Z79.85 Long-term (current) use of injectable non-insulin antidiabetic drugs; K21.9 Gastro-esophageal reflux disease without esophagitis; Z82.3 Family history of stroke; T81.31XD Disruption of external operation (surgical) wound, not elsewhere classified, subsequent encounter; E78.00 Pure hypercholesterolemia, unspecified; D64.9 Anemia, unspecified; R53.81 Other malaise; Z90.49 Acquired absence of other specified parts of digestive tract; Z85.42 Personal history of malignant neoplasm of other parts of uterus; Z86.79 Personal history of other diseases of the circulatory system; Z87.442 Personal history of urinary calculi
CPT/HCPCS: 11042; 11045; 15271; 87070; 87075; 87077; 87186; 87205; Q4186

== ENCOUNTER 2024-07-26 10:30 | Outpatient (RCR) | payer OTHER, SELFPAY ==
[2024-06-26 00:46] VITALS: BP 106/40; PULSE 74; RESP 18; TEMP 35.9; BMI 54.1
[2024-06-28 13:30] VITALS: BP 135/53; PULSE 85; RESP 18; TEMP 36.4; BMI 54.1
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
--- NOTE | 2024-07-01 11:26 | WC ---
PHOTO 06/28/24 RIGHT STUMP
--- NOTE | 2024-07-01 11:30 | WC ---
PHOTO 06/28/24 LEFT LOWER ABD
[2024-07-05 13:12] VITALS: BP 158/56; PULSE 73; RESP 18; TEMP 36.4; BMI 54.1
--- NOTE | 2024-07-06 12:05 | WC ---
PHOTO 07/05/24 RIGHT STUMP
--- NOTE | 2024-07-06 12:05 | WC ---
PHOTO 07/05/24 ABD
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
[2024-07-12 13:09] VITALS: BP 147/70; PULSE 97; RESP 18; TEMP 36.3; BMI 54.1
--- NOTE | 2024-07-13 14:03 | WC ---
PHOTO 07/12/24 RIGHT STUMP
--- NOTE | 2024-07-13 14:05 | WC ---
PHOTO 07/12/24 LEFT LOWER ABD
--- NOTE | 2024-07-13 19:04 | HP.PCM_ITS ---
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 time: 22 minutes
[2024-07-19 09:18] VITALS: BP 149/62; PULSE 100; RESP 18; TEMP 36.1; BMI 54.1
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
[2024-07-26 10:57] VITALS: BP 144/60; PULSE 94; RESP 20; TEMP 36.2; BMI 54.1
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
== END 2024-07-26 23:59 | disposition home or self-care (01) ==
LOC: WC 10:30
PROVIDERS: PCP Nurse Practitioner Family; Referring Provider Nurse Practitioner Family; Visit Provider Surgery
DX: T81.31XD Disruption of external operation (surgical) wound, not elsewhere classified, subsequent encounter (principal); M06.9 Rheumatoid arthritis, unspecified; Z89.511 Acquired absence of right leg below knee; I27.20 Pulmonary hypertension, unspecified; E66.01 Morbid (severe) obesity due to excess calories; Z79.4 Long term (current) use of insulin; E11.42 Type 2 diabetes mellitus with diabetic polyneuropathy; E11.29 Type 2 diabetes mellitus with other diabetic kidney complication; E11.610 Type 2 diabetes mellitus with diabetic neuropathic arthropathy; E11.22 Type 2 diabetes mellitus with diabetic chronic kidney disease; N18.32 Chronic kidney disease, stage 3b; G47.33 Obstructive sleep apnea (adult) (pediatric); D64.9 Anemia, unspecified; I12.9 Hypertensive chronic kidney disease with stage 1 through stage 4 chronic kidney disease, or unspecified chronic kidney disease; Z90.722 Acquired absence of ovaries, bilateral; E78.00 Pure hypercholesterolemia, unspecified; Z79.85 Long-term (current) use of injectable non-insulin antidiabetic drugs; K57.90 Diverticulosis of intestine, part unspecified, without perforation or abscess without bleeding; Z90.11 Acquired absence of right breast and nipple; E89.0 Postprocedural hypothyroidism; Z82.3 Family history of stroke; Z90.710 Acquired absence of both cervix and uterus; K21.9 Gastro-esophageal reflux disease without esophagitis; R53.81 Other malaise; Z86.79 Personal history of other diseases of the circulatory system; Z90.89 Acquired absence of other organs; Z99.89 Dependence on other enabling machines and devices; Z90.49 Acquired absence of other specified parts of digestive tract; T21.20XD Burn of second degree of trunk, unspecified site, subsequent encounter
CPT/HCPCS: 11042; 99213; G0463

== ENCOUNTER → 2024-08-18 | Outpatient (CLI) | payer OTHER, SELFPAY ==
[2024-08-18 17:01] LABS: Absolute Lymphocyte Count 1.63 X10^3/uL (0.83-4.51); Absolute Neutrophil Count 5.3 X10^3/uL (2.0-7.7); Basophil# 0.06 X10^3/uL; Basophil% 0.8 % (0-1); Eosinophil# 0.26 X10^3/uL; Eosinophils% 3.3 % (0-5); Hematocrit 37.5 % (37-47); Hemoglobin 12.5 g/dL (12.0-15.0); Lymphocyte # 1.63 X10^3/ul (0.83-4.51); Lymphocyte % 20.9 % (19-41); Mean Corp Hgb Conc 33.3 g/dL (32-36); Mean Corpuscular Hgb 30.5 pg (27.0-32.0); Mean Corpuscular Volume 91.5 fL (81-99); Mean Platelet Vol. 9.7 fl (6.2-12.0); Monocyte# 0.52 X10^3/uL; Monocyte% 6.7 % (0-10); NRBC Flagged by Analyzer 0 % (0-5); Neutrophil # 5.29 X10^3/uL (2.7-7.7); Neutrophil % 67.9 % (47-70); Platelet Count 182 K/mm3 (150-450); RBC Distribution Width SD 46.7 fl (35.1-43.9); White Blood Count 7.8 K/mm3 (4.4-11.0)
[2024-08-18 17:23] LABS: AST(SGOT) 18 U/L (15-37); Alanine Aminotransfer ALT/SGPT 35 U/L (13-56); Albumin, Serum 3.6 g/dL (3.2-5.0); Alkaline Phosphatase 114 U/L (45-117); Anion Gap 5 (5-15); BUN 23 mg/dL (7-18); BUN/Creat Ratio 23.7 RATIO (10-20); Calcium,Total 9.4 mg/dL (8.5-10.1); Chloride 104 mmol/L (98-107); Cholesterol 121 mg/dL (200); Creatinine, Serum 0.97 mg/dL (0.55-1.02); EST Glomerular Filtration Rate 62 mL/min (>60); Est Glom Filt Rate - Afr Amer 75 mL/min (>60); Globulin 3.7 g/dL (2.2-4.2); Glucose 87 mg/dL (74-106); High Density Lipoprotein 48 mg/dL; Potassium 3.9 mmol/L (3.5-5.1); Protein, Total 7.3 g/dL (6.4-8.2); Sodium Level 139 mmol/L (136-145); Thyroid Stim Hormone (TSH) 0.052 uIU/mL (0.358-3.740); Triglycerides 147 mg/dL; Very Low Density Lipoprotein 29 mg/dL (5-40)
[2024-08-18 17:25] LABS: Microalbumin,Random Urine 18.3 mg/L (NO RANGE EST.)
== END | disposition home or self-care (01) ==
LOC: VSLAB 14:33
PROVIDERS: Internal Medicine Endocrinology, Diabetes & Metabolism; PCP Nurse Practitioner Family; Visit Provider Nurse Practitioner Family
DX: E11.9 Type 2 diabetes mellitus without complications (principal); E03.9 Hypothyroidism, unspecified
CPT/HCPCS: 36415; 80053; 80061; 82043; 84439; 84443; 85025

== ENCOUNTER 2024-08-23 13:30 | Outpatient (RCR) | payer OTHER, SELFPAY ==
[2024-07-27 00:45] VITALS: BP 106/40; PULSE 74; RESP 18; TEMP 35.9; BMI 54.1
[2024-08-02 14:26] VITALS: BP 145/54; RESP 15; TEMP 36.1; BMI 54.1
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
[2024-08-09 13:57] VITALS: BP 140/82; PULSE 79; RESP 18; TEMP 36.4; BMI 54.1
--- NOTE | 2024-08-10 09:00 | WC ---
PHOTO 08/09/24 RIGHT STUMP
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
[2024-08-16 14:04] VITALS: BP 144/75; PULSE 80; RESP 18; TEMP 36.1; BMI 54.1
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
[2024-08-23 13:24] VITALS: BP 150/66; PULSE 78; RESP 18; TEMP 36.2; BMI 54.1
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
== END 2024-08-26 23:59 | disposition home or self-care (01) ==
LOC: WC 13:30
PROVIDERS: PCP Nurse Practitioner Family; Referring Provider Nurse Practitioner Family; Visit Provider Surgery
DX: E11.622 Type 2 diabetes mellitus with other skin ulcer (principal); L97.912 Non-pressure chronic ulcer of unspecified part of right lower leg with fat layer exposed; M06.9 Rheumatoid arthritis, unspecified; Z89.511 Acquired absence of right leg below knee; I27.20 Pulmonary hypertension, unspecified; E66.01 Morbid (severe) obesity due to excess calories; E11.22 Type 2 diabetes mellitus with diabetic chronic kidney disease; Z79.4 Long term (current) use of insulin; E11.610 Type 2 diabetes mellitus with diabetic neuropathic arthropathy; E11.29 Type 2 diabetes mellitus with other diabetic kidney complication; E11.42 Type 2 diabetes mellitus with diabetic polyneuropathy; N18.32 Chronic kidney disease, stage 3b; N18.31 Chronic kidney disease, stage 3a; Z90.722 Acquired absence of ovaries, bilateral; Z90.11 Acquired absence of right breast and nipple; I12.9 Hypertensive chronic kidney disease with stage 1 through stage 4 chronic kidney disease, or unspecified chronic kidney disease; Z79.85 Long-term (current) use of injectable non-insulin antidiabetic drugs; D64.9 Anemia, unspecified; G47.33 Obstructive sleep apnea (adult) (pediatric); Z82.3 Family history of stroke; K57.90 Diverticulosis of intestine, part unspecified, without perforation or abscess without bleeding; E78.00 Pure hypercholesterolemia, unspecified; E89.0 Postprocedural hypothyroidism; Z90.710 Acquired absence of both cervix and uterus; K21.9 Gastro-esophageal reflux disease without esophagitis; Z85.3 Personal history of malignant neoplasm of breast; Z99.89 Dependence on other enabling machines and devices; Z90.49 Acquired absence of other specified parts of digestive tract; Z86.79 Personal history of other diseases of the circulatory system; Z87.442 Personal history of urinary calculi; Z85.42 Personal history of malignant neoplasm of other parts of uterus; Z90.79 Acquired absence of other genital organ(s); T81.31XD Disruption of external operation (surgical) wound, not elsewhere classified, subsequent encounter; T21.20XD Burn of second degree of trunk, unspecified site, subsequent encounter; R53.81 Other malaise
CPT/HCPCS: 11042

== ENCOUNTER 2024-09-20 13:30 | Outpatient (RCR) | payer OTHER, SELFPAY ==
[2024-08-27 01:08] VITALS: BP 150/66; PULSE 78; RESP 18; TEMP 36.2; BMI 54.1
[2024-08-30 13:31] VITALS: BP 176/83; PULSE 97; RESP 18; TEMP 36.6; BMI 54.1
--- NOTE | 2024-08-31 12:17 | WC ---
PHOTO 08/30/24 RIGHT STUMP
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
[2024-09-06 13:25] VITALS: BP 124/55; PULSE 85; RESP 16; TEMP 36.6; BMI 54.1
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
--- NOTE | 2024-09-07 15:17 | NURSING ---
PHOTO 09/06/24 RIGHT STUMP
[2024-09-13 13:29] VITALS: BP 154/52; PULSE 83; RESP 18; TEMP 36.3; BMI 54.1
--- NOTE | 2024-09-15 16:44 | PCM.WC.HP ---
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 significant progress in recent weeks, the patient was treated with an oral antibiotic in accordance with the sensitivity results. A prescription for Bactrim double-strength was provided, to be taken twice daily for 7 days. The patient has completed the course of antibiotics. She states that her blood sugars have been running between 90 and 190, as she remains attentive to her blood sugars and attempts to maintain satisfactory nutritional intake. An EpiFix allograft was applied today. Approval has been granted in the past, though allograft applications were interrupted by a hiatus in the patient's insurance coverage, as well as noted improvement in the status of her healing wound. The patient is to leave the current allograft site intact and undisturbed. She is to return in 1 week for reassessment. The patient is to continue to optimize her nutritional intake and assure good control of her diabetes mellitus. She claims to be consuming a protein drink daily. Her last hemoglobin A1c on June 21, 2024, was 7.1. We are to continue monitoring the patient's progress, as additional allograft applications are anticipated. The patient may also be a candidate for hyperbaric oxygen therapy in the future, depending on the progress of her wound healing. Total time: 25 minutes
[2024-09-20 13:41] VITALS: BP 148/75; PULSE 102; RESP 18; TEMP 36.6; BMI 54.1
--- NOTE | 2024-09-21 08:22 | WC ---
PHOTO 09/20/24 RIGHT STUMP
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
== END 2024-09-23 23:59 | disposition home or self-care (01) ==
LOC: WC 13:30
PROVIDERS: PCP Nurse Practitioner Family; Referring Provider Nurse Practitioner Family; Visit Provider Surgery
DX: E11.622 Type 2 diabetes mellitus with other skin ulcer (principal); L97.912 Non-pressure chronic ulcer of unspecified part of right lower leg with fat layer exposed; M06.9 Rheumatoid arthritis, unspecified; Z89.511 Acquired absence of right leg below knee; I27.20 Pulmonary hypertension, unspecified; E66.01 Morbid (severe) obesity due to excess calories; Z79.4 Long term (current) use of insulin; E11.42 Type 2 diabetes mellitus with diabetic polyneuropathy; E11.29 Type 2 diabetes mellitus with other diabetic kidney complication; E11.610 Type 2 diabetes mellitus with diabetic neuropathic arthropathy; E11.22 Type 2 diabetes mellitus with diabetic chronic kidney disease; N18.32 Chronic kidney disease, stage 3b; K21.9 Gastro-esophageal reflux disease without esophagitis; I12.9 Hypertensive chronic kidney disease with stage 1 through stage 4 chronic kidney disease, or unspecified chronic kidney disease; Z82.3 Family history of stroke; E78.00 Pure hypercholesterolemia, unspecified; G47.33 Obstructive sleep apnea (adult) (pediatric); K57.90 Diverticulosis of intestine, part unspecified, without perforation or abscess without bleeding; D64.9 Anemia, unspecified; Z79.811 Long term (current) use of aromatase inhibitors; Z90.11 Acquired absence of right breast and nipple; Z90.710 Acquired absence of both cervix and uterus; E89.0 Postprocedural hypothyroidism; Z90.722 Acquired absence of ovaries, bilateral; Z79.85 Long-term (current) use of injectable non-insulin antidiabetic drugs; Z79.82 Long term (current) use of aspirin; Z90.79 Acquired absence of other genital organ(s); Z87.442 Personal history of urinary calculi; Z86.79 Personal history of other diseases of the circulatory system; Z90.89 Acquired absence of other organs; T21.20XD Burn of second degree of trunk, unspecified site, subsequent encounter; T81.31XD Disruption of external operation (surgical) wound, not elsewhere classified, subsequent encounter; Z85.3 Personal history of malignant neoplasm of breast; Z99.89 Dependence on other enabling machines and devices
CPT/HCPCS: 11042; 15271; 87070; 87075; 87077; 87186; 87205; Q4186

== ENCOUNTER 2024-10-20 09:00 | Outpatient (RCR) | payer OTHER, SELFPAY ==
[2024-09-24 00:52] VITALS: BP 148/75; PULSE 102; RESP 18; TEMP 36.6; BMI 54.1
[2024-09-27 13:23] VITALS: BP 153/81; PULSE 103; RESP 14; TEMP 36.3; BMI 54.1
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
[2024-10-06 14:02] VITALS: BP 136/76; PULSE 109; RESP 18; TEMP 36.8; BMI 54.1
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
[2024-10-20 08:54] VITALS: BP 142/50; PULSE 95; RESP 14; TEMP 36.2; BMI 54.1
--- NOTE | 2024-10-21 09:25 | WC ---
PHOTO 10/20/24 RIGHT STUMP
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
== END 2024-10-24 23:59 | disposition home or self-care (01) ==
LOC: WC 09:00
PROVIDERS: PCP Nurse Practitioner Family; Referring Provider Nurse Practitioner Family; Visit Provider Surgery
DX: E11.622 Type 2 diabetes mellitus with other skin ulcer (principal); L97.912 Non-pressure chronic ulcer of unspecified part of right lower leg with fat layer exposed; M06.9 Rheumatoid arthritis, unspecified; Z89.511 Acquired absence of right leg below knee; I27.20 Pulmonary hypertension, unspecified; E66.01 Morbid (severe) obesity due to excess calories; Z68.43 Body mass index [BMI] 50.0-59.9, adult; E11.22 Type 2 diabetes mellitus with diabetic chronic kidney disease; E11.42 Type 2 diabetes mellitus with diabetic polyneuropathy; Z79.4 Long term (current) use of insulin; E11.610 Type 2 diabetes mellitus with diabetic neuropathic arthropathy; E11.29 Type 2 diabetes mellitus with other diabetic kidney complication; N18.32 Chronic kidney disease, stage 3b; Z90.722 Acquired absence of ovaries, bilateral; Z79.85 Long-term (current) use of injectable non-insulin antidiabetic drugs; G47.33 Obstructive sleep apnea (adult) (pediatric); Z82.49 Family history of ischemic heart disease and other diseases of the circulatory system; D64.9 Anemia, unspecified; K21.9 Gastro-esophageal reflux disease without esophagitis; Z90.11 Acquired absence of right breast and nipple; E89.0 Postprocedural hypothyroidism; Z79.811 Long term (current) use of aromatase inhibitors; E78.2 Mixed hyperlipidemia; Z83.3 Family history of diabetes mellitus; Z90.710 Acquired absence of both cervix and uterus; Z79.82 Long term (current) use of aspirin; I12.9 Hypertensive chronic kidney disease with stage 1 through stage 4 chronic kidney disease, or unspecified chronic kidney disease; K57.90 Diverticulosis of intestine, part unspecified, without perforation or abscess without bleeding; Z87.442 Personal history of urinary calculi; Z86.79 Personal history of other diseases of the circulatory system; T21.20XD Burn of second degree of trunk, unspecified site, subsequent encounter; Z99.89 Dependence on other enabling machines and devices
CPT/HCPCS: 11042; 15271; Q4186

== ENCOUNTER 2024-11-08 13:00 | Outpatient (RCR) | payer OTHER, SELFPAY ==
[2024-10-25 00:42] VITALS: BP 142/50; PULSE 95; RESP 14; TEMP 36.2; BMI 54.1
[2024-10-25 14:13] VITALS: BP 164/65; PULSE 76; RESP 18; TEMP 36.1; BMI 54.1
--- NOTE | 2024-10-26 12:11 | WC ---
PHOTO 10/25/24 RIGHT STUMP
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
[2024-11-01 13:33] VITALS: BP 139/50; PULSE 83; RESP 14; TEMP 36.4; BMI 54.1
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
--- NOTE | 2024-11-08 09:40 | ADUL_ITS ---
Reason For Study Reason For Study: Nonhealing right BKA wound Right Velocities Ext. Iliac Artery, dist = 132.1 cm./sec. Common Femoral Artery, mid = 150.6 cm./sec. Supf Femoral Artery, prox = 107 cm./sec. Supf Femoral Artery, mid = 97.9 cm./sec. Supf Femoral Artery, dist. = 76 cm./sec. Profunda Femoral Artery = 60.6 cm./sec. Popliteal Artery, mid = 63.3 cm./sec. T/P Trunk, 56.7 cm/sec. Post. Tibial Artery, prox = 68 cm./sec. Ant. Tibial Artery, prox = 22.1 cm./sec. Peroneal artery, prox, not visualized. Procedure Technically difficult study due to patient body habitus. Exam performed in department. /US Art Duplex Unilat Lower Ext Interpretation Summary Pulsatile arterial flow is noted throughout the right lower extremity down to t he proximal calf, as there is a below- knee amputation. There is no evidence of significant arterial stenosis. The pro ximal right peroneal artery was not visualized. Ordering Physician: Malvin Alfonso Referring Physician: Anabell De Leon Performed By: Romy Padgett RVT
[2024-11-08 12:57] VITALS: BP 142/44; PULSE 86; RESP 16; TEMP 36.3; BMI 54.1
--- NOTE | 2024-11-09 09:54 | WC ---
PHOTO 11/08/24 RIGHT STUMP
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
== END 2024-11-23 23:59 | disposition home or self-care (01) ==
LOC: WC 13:00
PROVIDERS: PCP Nurse Practitioner Family; Referring Provider Nurse Practitioner Family; Visit Provider Surgery
DX: E11.622 Type 2 diabetes mellitus with other skin ulcer (principal); L97.912 Non-pressure chronic ulcer of unspecified part of right lower leg with fat layer exposed; M06.9 Rheumatoid arthritis, unspecified; Z89.511 Acquired absence of right leg below knee; I27.20 Pulmonary hypertension, unspecified; Z68.43 Body mass index [BMI] 50.0-59.9, adult; E66.01 Morbid (severe) obesity due to excess calories; E11.22 Type 2 diabetes mellitus with diabetic chronic kidney disease; Z79.4 Long term (current) use of insulin; E11.610 Type 2 diabetes mellitus with diabetic neuropathic arthropathy; E11.42 Type 2 diabetes mellitus with diabetic polyneuropathy; E11.29 Type 2 diabetes mellitus with other diabetic kidney complication; N18.32 Chronic kidney disease, stage 3b; G47.33 Obstructive sleep apnea (adult) (pediatric); Z82.49 Family history of ischemic heart disease and other diseases of the circulatory system; E78.2 Mixed hyperlipidemia; Z79.85 Long-term (current) use of injectable non-insulin antidiabetic drugs; Z79.811 Long term (current) use of aromatase inhibitors; K57.90 Diverticulosis of intestine, part unspecified, without perforation or abscess without bleeding; Z83.3 Family history of diabetes mellitus; Z90.722 Acquired absence of ovaries, bilateral; Z90.11 Acquired absence of right breast and nipple; K21.9 Gastro-esophageal reflux disease without esophagitis; E89.0 Postprocedural hypothyroidism; Z79.82 Long term (current) use of aspirin; Z90.710 Acquired absence of both cervix and uterus; D64.9 Anemia, unspecified; I12.9 Hypertensive chronic kidney disease with stage 1 through stage 4 chronic kidney disease, or unspecified chronic kidney disease; T81.31XD Disruption of external operation (surgical) wound, not elsewhere classified, subsequent encounter; T21.20XD Burn of second degree of trunk, unspecified site, subsequent encounter; Z90.79 Acquired absence of other genital organ(s); Z87.442 Personal history of urinary calculi; Z86.79 Personal history of other diseases of the circulatory system; Z90.49 Acquired absence of other specified parts of digestive tract; R53.81 Other malaise
CPT/HCPCS: 93926; 97597; 99212; 99213; G0463

== ENCOUNTER → 2024-11-10 | Outpatient (CLI) | payer OTHER, SELFPAY ==
[2024-11-10 16:42] LABS: Absolute Lymphocyte Count 1.73 X10^3/uL (0.83-4.51); Absolute Neutrophil Count 4.1 X10^3/uL (2.0-7.7); Basophil# 0.07 X10^3/uL; Eosinophil# 0.33 X10^3/uL; Eosinophils% 4.9 % (0-5); Hematocrit 33.8 % (37-47); Hemoglobin 11.7 g/dL (12.0-15.0); Lymphocyte # 1.73 X10^3/ul (0.83-4.51); Lymphocyte % 25.8 % (19-41); Mean Corp Hgb Conc 34.6 g/dL (32-36); Mean Corpuscular Volume 92.3 fL (81-99); Mean Platelet Vol. 10.7 fl (6.2-12.0); Monocyte# 0.45 X10^3/uL; Monocyte% 6.7 % (0-10); NRBC Flagged by Analyzer 0 % (0-5); Neutrophil # 4.09 X10^3/uL (2.7-7.7); Neutrophil % 61.2 % (47-70); Platelet Count 144 K/mm3 (150-450); RBC Distribution Width CV 14.1 % (11.6-14.6); RBC Distribution Width SD 47.8 fl (35.1-43.9); Red Blood Count 3.66 M/mm3 (4.2-5.4); White Blood Count 6.7 K/mm3 (4.4-11.0)
[2024-11-10 17:34] LABS: ALB/GLOB Ratio 1.5 RATIO (0.9-2.4); AST(SGOT) 31 U/L (<=31); Alanine Aminotransfer ALT/SGPT 34 U/L (<=34); Albumin, Serum 3.9 g/dL (3.4-4.8); Alkaline Phosphatase 133 U/L (35-104); Anion Gap 12 (5-15); BUN 18 mg/dL (4-19); BUN/Creat Ratio 19.6 RATIO (10-20); Carbon Dioxide 24.4 mmol/L (21.0-32.0); Chloride 103 mmol/L (98-108); Creatinine, Serum 0.93 mg/dL (0.70-1.20); EST Glomerular Filtration Rate 69 (>60); Globulin 2.6 g/dL (2.2-4.2); Glucose 205 mg/dL (70-99); Potassium 4.1 mmol/L (3.3-5.1); Protein, Total 6.5 g/dL (5.9-8.4); Sodium Level 139 mmol/L (133-145); Total Bilirubin 0.31 mg/dL (0.00-1.30)
[2024-11-10 17:35] LABS: Vitamin B12 1219 pg/mL (180-914); Vitamin D,25 Hydroxy 36.4 ng/mL (30-100)
== END | disposition home or self-care (01) ==
LOC: VSLAB 13:51
PROVIDERS: Internal Medicine Endocrinology, Diabetes & Metabolism; PCP Nurse Practitioner Family; Visit Provider Nurse Practitioner Family
DX: E03.9 Hypothyroidism, unspecified (principal); E11.22 Type 2 diabetes mellitus with diabetic chronic kidney disease; Z79.4 Long term (current) use of insulin; N18.31 Chronic kidney disease, stage 3a
CPT/HCPCS: 36415; 80053; 82306; 82607; 84439; 84443; 85025

== ENCOUNTER 2024-11-16 11:19 | Day surgery (SDC) | payer OTHER, SELFPAY ==
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
--- NOTE | 2024-11-16 10:02 | PCM.HP.STD ---
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 Current Encounter (DATE OF SURGERY H&P UPDATE): I saw and examined the patient this morning in pre-operative holding. We discussed risks and benefits of today's surgery and they would like to proceed. NO CHANGE in health history since last seen and evaluated. Ready to proceed with surgery. [facility] Medical History Gout History of renal disease Low iron Gastric reflux Hypertension Non-pressure chronic ulcer of right lower leg with fat layer exposed Burn of trunk, second degree Dehiscence of incision GERD (gastroesophageal reflux disease) Hyperlipidemia Tinea cruris Non-pressure chronic ulcer of right calf with fat layer exposed Wears glasses Post-menopausal Cancer Anxiety Open wound Thyroid disease Insulin dependent diabetes mellitus Uses wheelchair Fatty liver High cholesterol Dietary restriction Non-smoker History of edema History of echocardiogram History of stress test Cardiology follow-up encounter Invasive ductal carcinoma of right breast in female Surgical wound dehiscence Right leg swelling History of endometrial cancer Rheumatoid arthritis Diverticulosis Chronic renal failure, stage 3 (moderate) Pulmonary hypertension GERD (gastroesophageal reflux disease) Hyperlipidemia History of kidney stones Breast cancer in female Morbid obesity with BMI of 50.0-59.9, adult Hydronephrosis Ureteral calculus Charcot ankle Diabetic neuropathy Morbid obesity with BMI of 50.0-59.9, adult Diverticulosis Diabetes mellitus, type 2 Chronic renal failure (CRF), stage 3a Anemia Rheumatoid arthritis Chronic pain CPAP (continuous positive airway pressure) dependence Pulmonary hypertension BRITT (obstructive sleep apnea) Thyromegaly Hx of supraventricular tachycardia Nephrolithiasis Rosacea Fatty liver External hemorrhoid GERD without esophagitis Benign essential HTN Bilateral carpal tunnel syndrome Hyperlipidemia Low vitamin B12 level Multinodular goiter Tubular adenoma Adenocarcinoma of endometrium Home Medications ?Medication ?Instructions ?Recorded ?Last Taken ?Type cetirizine 10 mg capsule 10 mg PO DAILY Allergies 01/11/16 11/15/24 History metoprolol succinate 100 mg 100 mg PO DAILY BP 01/11/16 11/16/24 History tablet,extended release 24 hr multivitamin 1 ea PO DAILY Supplement 01/11/16 11/15/24 History omeprazole 40 mg capsule,delayed 40 mg PO DAILY GERD 01/11/16 11/16/24 History release simvastatin 20 mg tablet 20 mg PO QHS Cholestrol 01/11/16 11/15/24 History cyanocobalamin (vitamin B-12) 1,000 mcg PO DAILY Supplement 07/02/17 11/15/24 History 1,000 mcg sublingual tablet pregabalin 150 mg capsule (Lyrica) 150 mg PO TID NERVE PAIN 06/14/18 11/15/24 History ferrous sulfate 325 mg (65 mg 325 mg PO DAILY supplement 04/25/20 11/15/24 History iron) tablet (Feosol) allopurinol 100 mg tablet 100 mg PO DAILY #30 tabs 11/18/23 11/15/24 Rx ascorbic acid (vitamin C) 500 mg 1,000 mg (2 x 500 mg) PO DAILY #30 11/18/23 11/15/24 Rx tablet tabs calcium carbonate (Oyster Shell 500 mg PO BREAKFAST #30 tabs 11/18/23 11/15/24 Rx Calcium 500) blood sugar diagnostic (OneTouch #100 ea 12/03/23 Unknown Rx Ultra Test strips) OneTouch Delica Plus Lancet 33 #100 ea 12/04/23 Unknown Rx gauge (lancets) buspirone 5 mg tablet 5 mg PO TID #90 tabs 12/11/23 11/15/24 Rx fiber 1 cap PO DAILY 12/25/23 11/15/24 History anastrozole 1 mg tablet (Arimidex) 1 mg PO DAILY #90 tabs 02/24/24 11/15/24 Rx insulin lispro 100 unit/mL 3 unit subcut TID PRN BLOOD SUGARS 03/15/24 11/15/24 History subcutaneous pen insulin lispro 100 unit/mL See Protocol subcut DAILY PRN 03/15/24 03/13/24 History subcutaneous pen elevated BS pen needle, diabetic 31 gauge x #300 ea 05/19/24 Unknown Rx 12/09 (1st Tier Unifine Pentips) blood-glucose sensor (Dexcom G6 #9 ea 05/30/24 Unknown Rx Sensor device) blood-glucose transmitter (Dexcom #1 ea 05/30/24 Unknown Rx G6 Transmitter device) aripiprazole 2 mg tablet 2 mg PO QDAY 06/21/24 Unknown History aspirin 81 mg tablet,delayed 81 mg PO QDAY 06/21/24 11/15/24 History release (Adult Low Dose Aspirin) blood-glucose sensor (Dexcom G6 #9 ea 06/21/24 Unknown Rx Sensor device) cholecalciferol (vitamin D3) 125 125 mcg PO QDAY 06/21/24 11/15/24 History mcg (5,000 unit) capsule escitalopram oxalate 10 mg tablet See Rx Instructions PO DAILY 06/21/24 11/15/24 History sennosides 8.6 mg tablet 8.6 mg PO QDAY 06/21/24 11/15/24 History losartan 50 mg tablet (Cozaar) 50 mg PO DAILY #90 tabs 08/10/24 11/16/24 Rx insulin regular hum U-500 conc 500 See Rx Instructions subcut QHS 11/04/24 11/15/24 History unit/mL(3 mL) subcut pen (Humulin R U-500 (Conc) Insulin Kwikpen) levothyroxine 300 mcg tablet 300 mcg PO MOTUWETHFRSA 11/04/24 11/16/24 History tirzepatide 10 mg/0.5 mL 10 mg subcut TH 11/04/24 11/03/24 History subcutaneous pen injector (Mounjaro) Allergy/AdvReac Type Severity Reaction Status Date / Time No Known Allergies Allergy Verified 11/16/24 12:03 Family History Mother Ovarian cancer Hypertension Arthritis Uterine cancer Fibrocystic disease of breast Hypothyroid Father , Age 86-CHF Hypertension Arthritis Diverticulitis of colon Depression CAD (coronary artery disease) Sister Hypertension Depression CVA (cerebral vascular accident) Fibrocystic disease of breast Diabetes Bleeding disorder Portal hypertension Surgical History History of lithotripsy History of right mastectomy Status post right mastectomy History of cardiac catheterization Hx of cystoscopy Hx of total thyroidectomy History of tonsillectomy History of carpal tunnel release History of cardiac radiofrequency ablation History of total abdominal hysterectomy and bilateral salpingo-oophorectomy History of below-knee amputation S/P cystoscopy with ureteral stent placement History of right below knee amputation History of hand surgery H/O cardiac radiofrequency ablation (02/15/13) History of right and left heart catheterization (07/03/17) H/O colonoscopy H/O abdominal hysterectomy H/O carpal tunnel repair Previous section History of tonsillectomy Hx of cholecystectomy Surgical menopause Social History Smoking Status: Never smoker second hand exposure: No alcohol intake: never substance use type: does not use caffeine: No Physical Exam Narrative Left anterior arm biopsy site identified with the patient and marked (discussed 5 mm margins) Assessment & Plan Assessment/Plan (1) Melanoma in situ: PLAN: Plan INTERVAL H&P PLAN, DATE OF SURGERY: I talked to the patient extensively about the risks of surgery, including bleeding, infection, damage to surrounding structures, poor scaring, surgical site dehiscence and wound formation, need for wound care, need for repeat operations, failure to obtain the desired result, DVT/PE, and the risks of anesthesia including , including stroke (from low blood pressure/ischemia or clot). The benefits and alternatives of this surgery were also discussed. All of their questions were answered, and they agreed to proceed with surgery. We talked about 0.5 cm circumferential margins for wide local excision of the melanoma in situ (superficial spreading subtype) with primary closure. I talked her about the potential for inability to perform primary closure, at which time I will put a temporary dressing. She was in agreement with the plan. We will proceed with surgery today.
--- NOTE | 2024-11-16 10:08 | PCM.OPRPT ---
Operative Report (Standard) Operative Information Date of Procedure: 11/16/24 Pre-Operative Diagnosis: Left anterior arm melanoma in situ superficial spreading subtype Post-Operative Diagnosis: Same Surgery/Procedure Performed: 1) excision of the left anterior arm melanoma in situ, 1.5 x 2.2 centimeters including margins (CPT 12513) 2) complex closure of left anterior arm melanoma in situ resection wound, 5 cm (CPT 08237) tiedown operator: Yes Director Of Development: Maida Haskins Tasks completed by certified surgical first assistant: Retracting Type of Anesthesia: MAC/Supplemental (20 cc of a 50-50 mixture of 1% lidocaine with 1-200,000 epinephrine and 0.25% Marcaine with 1-200,000 epinephrine) RN Documented Start/Stop Times: Operation Date: 11/16/24 13:00 Case Time Into Pre-Op 11/16/24 11:46 Anesthesia Start 11/16/24 12:45 Into Room 11/16/24 12:45 Out of Pre-Op 11/16/24 12:45 Procedure Start 11/16/24 13:12 Procedure End 11/16/24 13:44 Into Recovery 11/16/24 13:50 Into Phase II Recovery 11/16/24 14:01 Out of Recovery 11/16/24 14:01 Procedure Start Time: 13:12 Procedure Stop Time: 13:44 Select all DRAINS/GRAFTS/IMPLANTS that apply: None Estimated Blood Loss: 10 cc Specimen collected: Yes Description of specimen(s) removed: Melanoma in situ resection with 5 mm margins (marked short superior long lateral with a silk stitch) Melanoma in situ lesion measured 1 by 1.7 centimeters (measuring without margins, with margins was 1.5 x 2.2 cm) Description of surgery: Indications: Flor Mitchell is a delightful 64-year-old female with a biopsy-proven 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 I discussed with her wide local excision with 5 mm margins. She agreed to proceed and understood the risks, benefits, and alternatives to the procedure. She understood the risk that we would need to come back for more if definitive/permanent pathology demonstrated a different diagnosis. Procedure details: Patient was correct identified in preoperative holding and the biopsy site was marked and confirmed with the patient. She was taken back to the operating room where she was administered some sedation. She was prepped and draped in sterile fashion and a local block was performed. All proper timeouts were performed. A 15 blade scalpel was used to make an excision longitudinally along the axis of the arm with 5 mm margins around the lesion full-thickness down to the fascia (Bovie electrocautery used for hemostasis and dissection). The specimen was marked short superior long lateral with a marking stitch and measured 1.5 x 2.2 centimeters (5 mm margins around the 1 x 1.7 cm melanoma in situ lesion). The wound was irrigated with copious amounts normal saline. The wound was approximately 5 centimeters long and required some undermining along the fascial plane of 3 centimeters medially and 3 centimeters laterally, indicating complex closure (undermining greater than the width of the incision). Intersept was used to irrigate the wound and Marvin powder was placed in the wound base. 2-0 PDS was used for the deep fascial sutures followed by 3-0 Monocryl deep dermal sutures and a 3-0 Monocryl running subcuticular suture. Prineo tape was applied. The patient tolerated the procedure well and was awakened and taken to the PACU in stable condition. Postoperative plan: Follow-up in 1 week for wound check and for pathology discussion. Surgical Findings: No signs of invasion into the underlying tissues Complications Complications: No Admit VTE Documentation VTE Mechan Device Prophylaxis: SCD's
--- NOTE | 2024-11-16 11:56 | PCM.PRE.AN2 ---
ASA Classification* ASA Classification ASA Classification: 3 Assessment & Plan Anesthesia* Anesthesia Assessment Anesthesia Assessment: Discussed sedation and/or anesthesia options, risks, benefits, and alternatives with patient/parents/legal guardian/POA. Questions invited. The patient/parents/legal guardian/POA seems to understand and agrees to proceed with anesthesia plan. Reviewed the physical assessment, medical history, allergy history and patient home medications list prior to surgery/procedure/anesthetic and documented any changes. Performed airway and anesthesia risk assessments. Anesthesia Type Anesthesia Type: MAC Anesthesia Focused Assessment* Airway Assessment Mouth opens: >3 cm Mallampati Score: II Focused Labs Anesthesia Preop lab: CBC WBC 6.7 K/mm3 (4.4-11.0) 11/10/24 13:52 11/10/24 RBC 3.66 M/mm3 (4.2-5.4) L 11/10/24 13:52 11/10/24 Hgb 11.7 g/dL (12.0-15.0) L 11/10/24 13:52 11/10/24 Hct 33.8 % (37-47) L 11/10/24 13:52 11/10/24 Plt Count 144 K/mm3 (150-450) L 11/10/24 13:52 11/10/24 CHEMISTRY Potassium 4.1 mmol/L (3.3-5.1) 11/10/24 13:52 11/10/24 Sodium 139 mmol/L (133-145) 11/10/24 13:52 11/10/24 Magnesium 2.1 mg/dL (1.6-2.6) 10/28/23 05:35 10/28/23 Phosphorus 4.8 mg/dL (2.5-4.9) 10/23/23 05:38 10/23/23 BUN 18 mg/dL (4-19) 11/10/24 13:52 11/10/24 Creatinine 0.93 mg/dL (0.70-1.20) 11/10/24 13:52 11/10/24 Glucose 205 mg/dL (70-99) H 11/10/24 13:52 11/10/24 POC Glucose 245 mg/dL (74-106) H 03/16/24 11:57 03/16/24 TSH 2.780 uIU/mL (0.300-4.200) 11/10/24 13:52 11/10/24 COAG PT 14.4 SECONDS (11.7-14.9) 01/23/24 09:54 01/23/24 Pre-Assessment Diagnosis/Proposed Procedure Planned Operative Procedure(s): (L) Excision Left Arm Melanoma In Situ Anesthesia History 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 When Was Last Pacemaker Check QUESTION #4 FULL TEXT: You/Your Family Experience fever (hyperthermia) with Anesthesia Last Oral Intake Last Oral intake: Last Oral Intake NPO since Meds taken in AM with sips of water? Meds patient instructed to take am of surgery PONV PONV - medical office technology instructor: PONV - medical office technology instructor Female Yes 11/04/24 12:04 HX of Motion Sickness No 11/04/24 12:04 HX of N/V After Surgery No 11/04/24 12:04 Non-Smoker Yes 11/04/24 12:04 Duration of Surgery greater Yes 11/04/24 12:04 than 60 minutes Number of Risk Factors 3 11/04/24 12:04 PONV Score Moderate Risk 11/04/24 12:04 Height & Weight Height & Weight: Anesthesia: Height & Weight Height 5 ft 6 in 11/08/24 15:07 Respiratory Assessment Respiratory Assessment - medical office technology instructor: Respiratory Tract Infection Hx - medical office technology instructor Hx Respiratory Tract Infection No 11/04/24 12:04 STOP Sleep Apnea STOP Sleep Apnea - medical office technology instructor: STOP Sleep Apnea - medical office technology instructor Hx Hypertension Yes: per pt, controlled on 11/04/24 12:04 meds Hx Sleep Apnea Yes 11/04/24 12:04 CPAP Yes 11/04/24 12:04 BIPAP No 11/04/24 12:04 Do you snore loudly (louder than talking or can be heard Do you often feel tired/ fatigued/ sleepy during daytime? Has anyone observed you stop breathing during sleep? STOP Results Positive 11/04/24 12:04 QUESTION #5 FULL TEXT : Do you snore loudly (louder than talking or can be heard through closed doors)? 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 Specify any problems Hx of Preganancy in last 3 No 11/04/24 12:04 Months Nurse Filling Out Transfusion MGRIFFITH 11/04/24 12:04 & Questions: Date: 11/04/24 11/04/24 12:04 Time: 12:08 11/04/24 12:04 Patient unable to answer at this time (ie. confused, unrespo /Reproduction History /Reproductive History - medical office technology instructor: /Reproductive Hx- medical office technology instructor Hx Now Gestational Age (in weeks): EDC: Hx Hx Para Hx Section SAB No 03/04/24 08:15 Active Medications Active Medications: Current Medications Generic Name Dose Route Start Last Admin Trade Name Freq PRN Reason Stop Dose Admin Cefazolin Sodium 2 gm/ N/A 20 mls @ 400 mls/hr 11/16/24 13:00 IV 11/16/24 13:02 INTRAOP ONE Lactated Ringer's 1,000 mls @ 15 mls/hr 11/16/24 12:00 IV .Q48H NIELS PFSH Medical History Gout History of renal disease Low iron Gastric reflux Hypertension Non-pressure chronic ulcer of right lower leg with fat layer exposed Burn of trunk, second degree Dehiscence of incision GERD (gastroesophageal reflux disease) Hyperlipidemia Tinea cruris Non-pressure chronic ulcer of right calf with fat layer exposed Wears glasses Post-menopausal Cancer Anxiety Open wound Thyroid disease Insulin dependent diabetes mellitus Uses wheelchair Fatty liver High cholesterol Dietary restriction Non-smoker History of edema History of echocardiogram History of stress test Cardiology follow-up encounter Invasive ductal carcinoma of right breast in female Surgical wound dehiscence Right leg swelling History of endometrial cancer Rheumatoid arthritis Diverticulosis Chronic renal failure, stage 3 (moderate) Pulmonary hypertension GERD (gastroesophageal reflux disease) Hyperlipidemia History of kidney stones Breast cancer in female Morbid obesity with BMI of 50.0-59.9, adult Hydronephrosis Ureteral calculus Charcot ankle Diabetic neuropathy Morbid obesity with BMI of 50.0-59.9, adult Diverticulosis Diabetes mellitus, type 2 Chronic renal failure (CRF), stage 3a Anemia Rheumatoid arthritis Chronic pain CPAP (continuous positive airway pressure) dependence Pulmonary hypertension BRITT (obstructive sleep apnea) Thyromegaly Hx of supraventricular tachycardia Nephrolithiasis Rosacea Fatty liver External hemorrhoid GERD without esophagitis Benign essential HTN Bilateral carpal tunnel syndrome Hyperlipidemia Low vitamin B12 level Multinodular goiter Tubular adenoma Adenocarcinoma of endometrium Home Medications ?Medication ?Instructions ?Recorded ?Last Taken ?Type cetirizine 10 mg capsule 10 mg PO DAILY Allergies 01/11/16 03/15/24 History metoprolol succinate 100 mg 100 mg PO DAILY BP 01/11/16 03/15/24 History tablet,extended release 24 hr multivitamin 1 ea PO DAILY Supplement 01/11/16 03/14/24 History omeprazole 40 mg capsule,delayed 40 mg PO DAILY GERD 01/11/16 03/15/24 History release simvastatin 20 mg tablet 20 mg PO QHS Cholestrol 01/11/16 03/14/24 History cyanocobalamin (vitamin B-12) 1,000 mcg PO DAILY Supplement 07/02/17 03/14/24 History 1,000 mcg sublingual tablet pregabalin 150 mg capsule (Lyrica) 150 mg PO TID NERVE PAIN 06/14/18 03/15/24 History ferrous sulfate 325 mg (65 mg 325 mg PO DAILY supplement 04/25/20 03/14/24 History iron) tablet (Feosol) allopurinol 100 mg tablet 100 mg PO DAILY #30 tabs 11/18/23 03/14/24 Rx ascorbic acid (vitamin C) 500 mg 1,000 mg (2 x 500 mg) PO DAILY #30 11/18/23 03/14/24 Rx tablet tabs calcium carbonate (Oyster Shell 500 mg PO BREAKFAST #30 tabs 11/18/23 03/14/24 Rx Calcium 500) blood sugar diagnostic (OneTouch #100 ea 12/03/23 Unknown Rx Ultra Test strips) OneTouch Delica Plus Lancet 33 #100 ea 12/04/23 Unknown Rx gauge (lancets) buspirone 5 mg tablet 5 mg PO TID #90 tabs 12/11/23 03/15/24 Rx fiber 1 cap PO DAILY 12/25/23 03/14/24 History anastrozole 1 mg tablet (Arimidex) 1 mg PO DAILY #90 tabs 02/24/24 03/15/24 Rx insulin lispro 100 unit/mL 3 unit subcut TID PRN BLOOD SUGARS 03/15/24 Unknown History subcutaneous pen insulin lispro 100 unit/mL See Protocol subcut DAILY PRN 03/15/24 03/13/24 History subcutaneous pen elevated BS pen needle, diabetic 31 gauge x #300 ea 05/19/24 Unknown Rx /16 (1st Tier Unifine Pentips) blood-glucose sensor (Dexcom G6 #9 ea 05/30/24 Unknown Rx Sensor device) blood-glucose transmitter (Dexcom #1 ea 05/30/24 Unknown Rx G6 Transmitter device) aripiprazole 2 mg tablet 2 mg PO QDAY 06/21/24 Unknown History aspirin 81 mg tablet,delayed 81 mg PO QDAY 06/21/24 Unknown History release (Adult Low Dose Aspirin) blood-glucose sensor (Dexcom G6 #9 ea 06/21/24 Unknown Rx Sensor device) cholecalciferol (vitamin D3) 125 125 mcg PO QDAY 06/21/24 Unknown History mcg (5,000 unit) capsule escitalopram oxalate 10 mg tablet See Rx Instructions PO DAILY 06/21/24 Unknown History sennosides 8.6 mg tablet 8.6 mg PO QDAY 06/21/24 Unknown History losartan 50 mg tablet (Cozaar) 50 mg PO DAILY #90 tabs 08/10/24 Unknown Rx insulin regular hum U-500 conc 500 See Rx Instructions subcut QHS 11/04/24 Unknown History unit/mL(3 mL) subcut pen (Humulin R U-500 (Conc) Insulin Kwikpen) levothyroxine 300 mcg tablet 300 mcg PO MOTUWETHFRSA 11/04/24 Unknown History tirzepatide 10 mg/0.5 mL 10 mg subcut TH 11/04/24 11/03/24 History subcutaneous pen injector (Mounjaro) Allergy/AdvReac Type Severity Reaction Status Date / Time No Known Allergies Allergy Verified 11/08/24 15:05 Family History Mother Ovarian cancer Hypertension Arthritis Uterine cancer Fibrocystic disease of breast Hypothyroid Father , Age 86-CHF Hypertension Arthritis Diverticulitis of colon Depression CAD (coronary artery disease) Sister Hypertension Depression CVA (cerebral vascular accident) Fibrocystic disease of breast Diabetes Bleeding disorder Portal hypertension Surgical History History of lithotripsy History of right mastectomy Status post right mastectomy History of cardiac catheterization Hx of cystoscopy Hx of total thyroidectomy History of tonsillectomy History of carpal tunnel release History of cardiac radiofrequency ablation History of total abdominal hysterectomy and bilateral salpingo-oophorectomy History of below-knee amputation S/P cystoscopy with ureteral stent placement History of right below knee amputation History of hand surgery H/O cardiac radiofrequency ablation (02/15/13) History of right and left heart catheterization (07/03/17) H/O colonoscopy H/O abdominal hysterectomy H/O carpal tunnel repair Previous section History of tonsillectomy Hx of cholecystectomy Surgical menopause Social History Smoking Status: Never smoker second hand exposure: No alcohol intake: never substance use type: does not use caffeine: No Review of Systems (Anesthesia) ROS Narrative System reviewed and no additional complaints, except as documented.
[2024-11-16 12:10] VITALS: BP 131/63; PULSE 71; RESP 18; TEMP 37; O2SAT 98; BMI 54.1
[2024-11-16] MEDS: Lactated Ringers 1,000 ML 15 ML IV (12:20)
[2024-11-16] MEDS: Cefazolin 2 GM in Syringe IV (12:50)
--- NOTE | 2024-11-16 13:00 | LES_PTH ---
PATIENT: KACY KEEN [place] [facility] [id number] AGE/SX: 64/F ROOM: RE11/16/[address]: Dr. Tk Atkinson MD : 1960 BED: DIS: 11/16/2024 SPEC #: [id number] RECD: 11/17/24 08:59 STATUS: ELIANA KATHERINE #: [id number] [place]: 11/16/24 13:[address]: Tk Atkinson DEPT: SURGICAL PATHOLOGY RECD BY: Estrada Heaton ENTERED: 11/17/24 09:00 SP TYPE: Lesion OTHR DR: Anabell De Leon, [facility], HANDLE ATTACHER-C Tissues: A - Skin of arm Procedures: Surgery Specimen Level IV HEADER OPERATION: Excision left arm melanoma in situ PRE-OP DIAGNOSIS: Melanoma in situ; left upper arm TISSUE SUBMITTED: A- Melanoma in situ: left upper arm * stitch henry short superior, long stitch lateral* MICROSCOPIC DIAGNOSIS A. Skin, left upper arm, excision: * Atypical melanocytic hyperplasia, surgical margins free - see note. * Scar and associated reactive changes consistent with a previous surgical procedure. Note: The history of malignant melanoma in situ is noted. No previous pathology report from this site is identified in the EMR. No residual malignant melanoma in situ is seen in these sections and no invasive melanoma is seen. MICROSCOPIC DESCRIPTION Slides are reviewed. GROSS DESCRIPTION A. Received in formalin in a container labeled with the patient's name, date of , and melanoma in situ-left upper arm, short sup, long lateral is an oriented, ovoid skin excision with a short stitch indicating superior and long stitch indicating lateral margin. The specimen is 2.7 cm from superior to inferior, 2.8 cm from medial to lateral, with a depth up to 3.2 cm. The underlying fatty soft tissue is lobulated and disrupted, larger than the overlying skin. The skin is notable for a snowden-navas scab with surrounding navas-pink and disrupted skin. Lesion measurement: 1.2 x 0.6 x 0.2 cm. It is situated to the margins as follows:Lateral: 0.4 cmMedial: 0.5 cmSuperior: 0.9 cmInferior: 1.1 cm Ink lombardo:Peripheral medial margin: BlackDeep medial margin: BluePeripheral lateral margin: GreenDeep lateral margin: Red The specimen is serially sectioned from superior to inferior into 6 slices to reveal that the lesion is situated within slices 2-5. The cut surfaces are snowden-pink, appearing to extend 0.2 cm deep, but do not extend into the underlying soft tissue. The remaining cut surfaces are snowden-yellow, lobulated, with scattered hemorrhage. Submitted entirely and sequentially as follows:A1. Slice 1, superior end, perpendicularA2. Slice 2, wholeA3-4. Slice 3 bisected (closest lateral peripheral margin in A3)A5. Slice 4, whole (closest medial peripheral margin)A6. Slice 5, wholeA7. Slice 6, inferior end, perpendicular [facility] 11-17-2024 CPT:44912
[2024-11-16] MEDS: Bupiv/Epi 0.25% 30 ML Vial (13:17)
[2024-11-16] MEDS: Lidocaine 1% /Epi 1:100 (20ml) 20 ML Vial (13:17)
[2024-11-16 13:50] VITALS: BP 131/63; BP 150/85; PULSE 76; RESP 16; TEMP 36.7; O2SAT 100
--- NOTE | 2024-11-16 13:54 | PCM.POST.ANE ---
Anesthesia: Postop Eval I Current Vital Signs Temperature: 98.1 F Pulse Rate: 81 Blood Pressure: 150/85 Respiratory Rate: 20 Pulse Ox: 97 Oxygen Delivery Method: Room Air Assessment Airway patent: Yes Spontaneous unlabored respirations: Yes Mental status: Awake and Calm nausea: No Vomiting: No Anesthesia Complication: No Fluid Hydration Crystalloid volume administer (ml): 400 Total IV fluid infused: 400 Progress Note Anesthesia document: Postop Eval 1 completed: Yes
[2024-11-16 13:55] VITALS: BP 131/63; BP 143/58; BP 150/85; PULSE 75; PULSE 81; RESP 16; RESP 20; TEMP 36.7; O2SAT 100; O2SAT 97
[2024-11-16 14:00] VITALS: BP 131/63; BP 138/63; PULSE 75; RESP 16; TEMP 36.7; O2SAT 99
--- NOTE | 2024-11-16 14:04 | POSTOPAN2_ITS ---
Anesthesia Postop Eval I Sum Postop Eval Completion status Anesthesia document: Postop Eval 1 completed: Yes Anesthesia Postop Eval I Summary Anesthesia Postop Eval I Summary: Anesthesia Postop Eval I: Assessment Summary Airway patent Yes 11/16/24 13:55 [email or web address] Spontaneous unlabored Yes 11/16/24 13:55 [email or web address] [email or web address] respirations Mental status Awake,Calm 11/16/24 13:55 [email or web address] nausea No 11/16/24 13:55 [email or web address] [email or web address] Vomiting No 11/16/24 13:55 [email or web address] Anesthesia Postop Eval I: Fluid Summary Crystalloid volume administer 400 11/16/24 13:55 [email or web address] (ml) Colloids volume administered ( ml) Blood Product volume administered (ml) Total IV fluid infused 400 11/16/24 13:55 [email or web address] Anesthesia Postop Eval I: Summary Notes Anesthesia Complication No 11/16/24 13:55 [email or web address] Anesthesia Complication Comment: Post-operative progress note Anesthesia: Postop Eval II Evaluation Mental status: Awake Pain Level: 0 nausea: No Vomiting: No
--- NOTE | 2024-11-16 14:04 | PCM.POSTANE2 ---
Anesthesia Postop Eval I Sum Postop Eval Completion status Anesthesia document: Postop Eval 1 completed: Yes Anesthesia Postop Eval I Summary Anesthesia Postop Eval I Summary: Anesthesia Postop Eval I: Assessment Summary Airway patent Yes 11/16/24 13:55 [email or web address] Spontaneous unlabored Yes 11/16/24 13:55 [email or web address] respirations Mental status Awake,Calm 11/16/24 13:55 [email or web address] nausea No 11/16/24 13:55 [email or web address] Vomiting No 11/16/24 13:55 [email or web address] Anesthesia Postop Eval I: Fluid Summary Crystalloid volume administer 400 11/16/24 13:55 [email or web address] (ml) Colloids volume administered ( ml) Blood Product volume administered (ml) Total IV fluid infused 400 11/16/24 13:55 [email or web address] Anesthesia Postop Eval I: Summary Notes Anesthesia Complication No 11/16/24 13:55 [email or web address] Anesthesia Complication Comment: Post-operative progress note Anesthesia: Postop Eval II Evaluation Mental status: Awake Pain Level: 0 nausea: No Vomiting: No
[2024-11-16 14:07] LABS: Bedside Glucose 210 mg/dL (74-106)
[2024-11-16 14:35] VITALS: BP 131/63; BP 145/61; PULSE 71; RESP 16; TEMP 36.9; O2SAT 99
== END 2024-11-16 14:49 | disposition home or self-care (01) ==
LOC: SDC 11:23 → AC 11:24
PROVIDERS: PCP Nurse Practitioner Family; Referring Provider Surgery Plastic and Reconstructive Surgery; Visit Provider Surgery Plastic and Reconstructive Surgery
PROC: (CPT 11406; principal; 2024-11-16 12:45)
DX: D22.62 Melanocytic nevi of left upper limb, including shoulder (principal); E11.22 Type 2 diabetes mellitus with diabetic chronic kidney disease; Z79.4 Long term (current) use of insulin; N18.31 Chronic kidney disease, stage 3a; K21.9 Gastro-esophageal reflux disease without esophagitis; Z79.82 Long term (current) use of aspirin; I12.9 Hypertensive chronic kidney disease with stage 1 through stage 4 chronic kidney disease, or unspecified chronic kidney disease; E78.00 Pure hypercholesterolemia, unspecified; Z79.899 Other long term (current) drug therapy; Z79.890 Hormone replacement therapy; E89.0 Postprocedural hypothyroidism; Z86.006 Personal history of melanoma in-situ; L90.5 Scar conditions and fibrosis of skin; Z85.820 Personal history of malignant melanoma of skin
CPT/HCPCS: 11406; 13121; 00400; 82962; 88305; J2405

== ENCOUNTER → 2024-12-06 | Outpatient (CLI) | payer OTHER, SELFPAY ==
--- NOTE | 2024-12-06 13:29 | BI_ITS ---
EXAM: SCREEN MAMM (CAD) W/JESS UNI L DATE: 12/06/2024 CLINICAL HISTORY: F, Age 64 y/o , ANNUAL SCREENING BREAST CANCER RISK ASSESSMENT: Not reported TECHNIQUE: Unilateral screening digital left breast tomosynthesis with 2D and 3D images. Computer aided detection. COMPARISON: Prior exam(s) were compared FINDINGS: TISSUE DENSITY: The breast tissue is heterogenously dense, which may obscure small masses. Left breast Mammographic Findings: No suspicious masses, calcifications or other abnormalities are identified. BI/SCREEN MAMM (CAD) W/JESS UNI L IMPRESSION: OVERALL FINAL ASSESSMENT: BIRADS 1 NEGATIVE RECOMMENDATION: Routine annual follow-up in 1 Year A letter with findings and recommendations will be mailed to the patient. Reading Location: [id number]
== END | disposition home or self-care (01) ==
LOC: OPBI 13:28
PROVIDERS: PCP Nurse Practitioner Family; Referring Provider Internal Medicine Hematology & Oncology; Visit Provider Internal Medicine Hematology & Oncology
DX: Z12.31 Encounter for screening mammogram for malignant neoplasm of breast (principal)
CPT/HCPCS: 77063; 77067

== ENCOUNTER → 2024-12-27 | Outpatient (CLI) | payer OTHER, SELFPAY | END | disposition home or self-care (01) | LOC: VSLAB 14:37 | PROVIDERS: PCP Nurse Practitioner Family; Visit Provider Nurse Practitioner Family | DX: L02.91 Cutaneous abscess, unspecified (principal) | CPT/HCPCS: 87070; 87077; 87205 ==

== ENCOUNTER 2024-12-28 13:44 | Outpatient (RCR) | payer OTHER, SELFPAY ==
[2024-11-24 00:15] VITALS: BP 142/44; PULSE 86; RESP 16; TEMP 36.3; BMI 54.1
[2024-12-28 14:13] VITALS: BP 151/61; PULSE 84; RESP 18; TEMP 36.4; BMI 54.1
== END 2025-01-23 23:59 | disposition home or self-care (01) ==
LOC: WC 13:44
PROVIDERS: PCP Nurse Practitioner Family; Referring Provider Nurse Practitioner Family; Visit Provider Surgery
DX: L89.323 Pressure ulcer of left buttock, stage 3 (principal); M06.9 Rheumatoid arthritis, unspecified; Z89.511 Acquired absence of right leg below knee; I27.20 Pulmonary hypertension, unspecified; Z68.43 Body mass index [BMI] 50.0-59.9, adult; E66.01 Morbid (severe) obesity due to excess calories; D03.9 Melanoma in situ, unspecified; E11.42 Type 2 diabetes mellitus with diabetic polyneuropathy; E11.22 Type 2 diabetes mellitus with diabetic chronic kidney disease; Z79.4 Long term (current) use of insulin; N18.31 Chronic kidney disease, stage 3a; K61.1 Rectal abscess; D64.9 Anemia, unspecified; E89.0 Postprocedural hypothyroidism; M10.9 Gout, unspecified; I12.9 Hypertensive chronic kidney disease with stage 1 through stage 4 chronic kidney disease, or unspecified chronic kidney disease; K57.90 Diverticulosis of intestine, part unspecified, without perforation or abscess without bleeding; G47.33 Obstructive sleep apnea (adult) (pediatric); K21.9 Gastro-esophageal reflux disease without esophagitis; E78.2 Mixed hyperlipidemia; Z90.11 Acquired absence of right breast and nipple; Z79.811 Long term (current) use of aromatase inhibitors; Z79.82 Long term (current) use of aspirin; Z79.899 Other long term (current) drug therapy
CPT/HCPCS: 10061; 11042; 87070; 87075; 87077; 87186; 87205; 99213; G0463

== ENCOUNTER 2025-02-14 15:00 | Outpatient (RCR) | payer OTHER, SELFPAY ==
[2025-01-24 13:13] VITALS: BP 183/83; PULSE 84; RESP 18; TEMP 36.6; BMI 56.5
--- NOTE | 2025-01-25 08:38 | WC ---
PHOTO 01/24/25 LEFT BUTTOCK
--- NOTE | 2025-01-25 16:51 | HP.PCM_ITS ---
History of Present Illness Date of Service: 01/24/25 Chief Complaint: Perirectal abscess History of Wound: This is a 64-year-old morbidly obese diabetic female with multiple pre-existing medical conditions. She was recently cared for at the [facility] for a surgical wound dehiscence of her right below-knee amputation stump incision. She was also treated for second- degree lyon of the lower abdomen. After many months of treatment, she subsequently healed, and was last seen at the Wound Center and discharged on November 08, 2024. The patient returned on December 28, 2024, with an abscess on the left ischium. According to the patient, the problem began approximately 8 days prior to her presentation, at which time she noted some bloody drainage at the site. She experienced increasing pain and discomfort in the area, and began to note the presence of brown, purulent drainage. She denied using a Roho or gel cushion for sitting in her wheelchair, although she has been wheelchair-bound for many months due to the dehiscence of her right below-knee amputation stump incision. The patient had been prescribed doxycycline orally by a provider at the [facility]. The left ischial abscess was incised and drained at the patient's Wound Center visit on December 28, 2024, with arrangements for the abscess cavity to be packed with moistened 1/4 inch Nu Gauze on a daily basis. The patient returned at this time for ongoing definitive management of the abscess site, which has improved significantly since the initial incision and drainage. The patient indicates that she is anticipating the fitting of a prosthesis in the near future, and is collaborating with [employer] towards a subjective. The patient is known to be a diabetic, and has had some difficulties with regulation. The patient underwent a right mastectomy with sentinel lymph node biopsy by Dr. Knapp on March 15, 2024. [facility] Medical History Pressure ulcer of ischium, stage 3 Gout History of renal disease Low iron Gastric reflux Hypertension Non-pressure chronic ulcer of right lower leg with fat layer exposed Burn of trunk, second degree Dehiscence of incision GERD (gastroesophageal reflux disease) Hyperlipidemia Tinea cruris Non-pressure chronic ulcer of right calf with fat layer exposed Wears glasses Post-menopausal Cancer Anxiety Open wound Thyroid disease Insulin dependent diabetes mellitus Uses wheelchair Fatty liver High cholesterol Dietary restriction Non-smoker History of edema History of echocardiogram History of stress test Cardiology follow-up encounter Invasive ductal carcinoma of right breast in female Surgical wound dehiscence Right leg swelling History of endometrial cancer Rheumatoid arthritis Diverticulosis Chronic renal failure, stage 3 (moderate) Pulmonary hypertension GERD (gastroesophageal reflux disease) Hyperlipidemia History of kidney stones Breast cancer in female Morbid obesity with BMI of 50.0-59.9, adult Hydronephrosis Ureteral calculus Charcot ankle Diabetic neuropathy Morbid obesity with BMI of 50.0-59.9, adult Diverticulosis Diabetes mellitus, type 2 Chronic renal failure (CRF), stage 3a Anemia Rheumatoid arthritis Chronic pain CPAP (continuous positive airway pressure) dependence Pulmonary hypertension BRITT (obstructive sleep apnea) Thyromegaly Hx of supraventricular tachycardia Nephrolithiasis Rosacea Fatty liver External hemorrhoid GERD without esophagitis Benign essential HTN Bilateral carpal tunnel syndrome Hyperlipidemia Low vitamin B12 level Multinodular goiter Tubular adenoma Adenocarcinoma of endometrium Home Medications Medication Instructions Recorded Last Taken Type cetirizine 10 mg capsule 10 mg PO DAILY Allergies 11/15/24 History metoprolol succinate 100 mg 100 mg PO DAILY BP 6 11/16/24 History tablet,extended release 24 hr multivitamin 1 ea PO DAILY Supplement 11/15/24 History omeprazole 40 mg capsule,delayed 40 mg PO DAILY GERD 0 01/11/16 11/16/24 History release simvastatin 20 mg tablet 20 mg PO QHS Cholestrol 12/2511/15/24 History cyanocobalamin (vitamin B-12) 1,000 mcg PO DAILY Suppl ement 07/02/17 11/15/24 History 1,000 mcg sublingual tablet pregabalin 150 mg capsule (Lyrica) 150 mg PO TID NERVE PAIN 06/14/18 11/15/24 History ferrous sulfate 325 mg (65 mg 325 mg PO DAILY suppleme nt 04/25/20 11/15/24 History iron) tablet (Feosol) allopurinol 100 mg tablet 100 mg PO DAILY #30 tabs 11/15/24 Rx ascorbic acid (vitamin C) 500 mg 1,000 mg (2 x 500 mg) PO DAILY #30 11/18/23 11/15/24 Rx tablet tabs calcium carbonate (Oyster Shell 500 mg PO BREAKFAST #3 0 tabs 11/18/23 11/15/24 Rx Calcium 500) blood sugar diagnostic (OneTouch #100 ea 12/03/23 Unkn own Rx Ultra Test strips) OneTouch Delica Plus Lancet 33 #100 ea 12/04/23 Unknow n Rx gauge (lancets) buspirone 5 mg tablet 5 mg PO TID #90 tabs 2 4 11/15/24 Rx fiber 1 cap PO DAILY 12/25/2310/26 History anastrozole 1 mg tablet (Arimidex) 1 mg PO DAILY #90 t abs 02/24/24 11/15/24 Rx insulin lispro 100 unit/mL See Protocol subcut DAILY P RN 03/15/24 03/13/24 History subcutaneous pen elevated BS pen needle, diabetic 31 gauge x #300 ea 05/19/24 Unkno wn Rx 516" (1st Tier Unifine Pentips) blood-glucose sensor (Dexcom G6 #9 ea 05/30/24 Unknown Rx Sensor device) blood-glucose transmitter (Dexcom #1 ea 05/30/24 Unkno wn Rx G6 Transmitter device) aripiprazole 2 mg tablet 2 mg PO QDAY 06/21/24 Unknow n History aspirin 81 mg tablet,delayed 81 mg PO QDAY 06/21/24 History release (Adult Low Dose Aspirin) blood-glucose sensor (Dexcom G6 #9 ea 06/21/24 Unknown Rx Sensor device) cholecalciferol (vitamin D3) 125 125 mcg PO QDAY 06/2111/15/24 History mcg (5,000 unit) capsule escitalopram oxalate 10 mg tablet See Rx Instructions PO DAILY 06/21/24 11/15/24 History sennosides 8.6 mg tablet 8.6 mg PO QDAY 06/21/2410/26 History losartan 50 mg tablet (Cozaar) 50 mg PO DAILY #90 tabs 08/10/24 11/16/24 Rx insulin regular hum U-500 conc 500 See Rx Instructions subcut QHS 11/04/24 11/15/24 History unit/mL(3 mL) subcut pen (Humulin R U-500 (Conc) Insulin Kwikpen) levothyroxine 300 mcg tablet 300 mcg PO MOTUWETHFRSA # 90 tabs 12/05/24 Unknown Rx insulin lispro 100 unit/mL 20 unit (0.2 mL) subcut TID PRN 12/09/24 Unknown Rx subcutaneous pen BLOOD SUGARS #60 mL tirzepatide 12.5 mg/0.5 mL 12.5 mg (0.5 mL) subcut QWE EK #6 mL 12/27/24 Unknown Rx subcutaneous pen injector (Mounjaro) Allergy/AdvReac Type Severity Reaction Status Date / Time No Known Allergies Allergy Verified 01/24/25 13:06 Family History Mother Ovarian cancer Hypertension Arthritis Uterine cancer Fibrocystic disease of breast Hypothyroid Father , Age 86-CHF Hypertension Arthritis Diverticulitis of colon Depression CAD (coronary artery disease) Sister Hypertension Depression CVA (cerebral vascular accident) Fibrocystic disease of breast Diabetes Bleeding disorder Portal hypertension Surgical History History of lithotripsy History of right mastectomy Status post right mastectomy History of cardiac catheterization Hx of cystoscopy Hx of total thyroidectomy History of tonsillectomy History of carpal tunnel release History of cardiac radiofrequency ablation History of total abdominal hysterectomy and bilateral salpingo-oophorectomy History of below-knee amputation S/P cystoscopy with ureteral stent placement History of right below knee amputation History of hand surgery H/O cardiac radiofrequency ablation (02/15/13) History of right and left heart catheterization (07/03/17) H/O colonoscopy H/O abdominal hysterectomy H/O carpal tunnel repair Previous section History of tonsillectomy Hx of cholecystectomy Surgical menopause Social History Smoking Status: Never smoker second hand exposure: No alcohol intake: never substance use type: does not use caffeine: No Vital Signs Vital Signs Vital Signs: Weight Weight: 350 lb Body Mass Index (BMI) 56.5 Physical Exam Const alert, oriented x3, no apparent distress and well nourished Constitutional Narrative: The patient is morbidly obese, with a BMI of 56.5. General Appearance: cooperative, comfortable, well kempt and well developed Orientation / Consciousness: awake, oriented to person, oriented to place and oriented to time Exam Limitations: no limitations HEENT normocephalic and head/scalp atraumatic Head and Scalp: normal to inspection, normocephalic and atraumatic Face and Sinus: normal facial exam Nose: external nose normal External Ear: external ears normal Eyes EOMs intact bilaterally General Eye: normal appearance of both eyes Neck full ROM Resp normal respiratory effort, normal air movement, no retractions and no use of accessory muscles Effort and Inspection: able to speak in complete sentences Extremity no calf tenderness Extremity Narrative: An unremarkable right below-knee amputation stump is noted. Skin Wound Narrative: A wound is noted on the patient's left ischium/buttock. The base of the wound is generally pink and healthy in appearance, with a small amount of bioburden. There is no sign of infection or cellulitis. Wound margins are reasonably well beveled. Dimensions are documented elsewhere. Since the patient's last visit, several weeks ago, the abscess cavity has diminished significantly in size and depth. The ulceration extends through all layers of the dermis and into the subcutaneous tissues, representing a stage III pressure ulceration. Neuro oriented x3, CN's II-XII intact bilaterally, moves all extremities, no focal motor deficits and no sensory deficits noted Sensorium / Orientation: awake, alert, oriented to person, oriented to place and oriented to time Speech: speech normal Psych Appearance: grossly normal and appropriate Attitude: calm Activity / Motor Behavior: appropriate eye contact Speech: normal speech Mood & Affect: euthymic mood Thought Process: normal thought process Thought Content: normal thought content Attention / Concentration: attention grossly intact Debridement Note Debridement Note Wound debrided: Left ischial pressure ulceration Laterality: Left Wound Grade/Stage: Stage III Type of Debridement: Excisional debridement Anesthesia Used: 5% Lidocaine Gel Depth: Down to and including healthy tissue and in the subcutaneous layer Percentage of wound debrided: 100 Instrument Used: 5mm curette Severity: Fat Layer Exposed Amount of bleeding with debridement: Mild Bleeding Controlled with: Compression and gauze Patient tolerated procedure: Patient tolerated procedure well Post-Debridement Measurements and Additional Note: Post-Debridement Measurements/Treatment JIA - Nurse 1 - General Ulcer Assessment Start: 01/24/25 13:13 Freq: Status: Active Protocol: MATT Activity Type Activity Date Activity User E-sign Co-sign Detail Recorded Client Recorded Date Recorded By Document 01/24/25 13:13 CHARO [id number] 01/24/25 13:14 KW Edit Result 01/24/25 13:13 KW (1) [id number] 01/24/25 13:15 KW (1) Height => 5 ft 6 in Weight => 350 lb Weight in Pounds => 350.0 lbs Body Mass Index (BMI) => 56.5 BMI Classification => Obese 01/24/25 13:13 WC - Today's Visit Information Type of service Initial Visit Arrival Mode Wheelchair Accompanied by Patient Identification Verified (Name & Yes ) Height and Weight Height 5 ft 6 in Weight 350 lb Weight in Pounds 350.0 lbs Body Mass Index (BMI) 56.5 BMI Classification Obese Vital Signs Temperature (97.8 F-99.1 F) 97.9 F Temperature Source Temporal Pulse Rate (60-100) 84 Pulse Location Monitor Respiratory Rate (12-18) 18 Respiratory rate source Observation Oxygen Delivery Method Room Air Blood Pressure (90/60-120/80) 183/83 H Blood Pressure Mean 116 Source Monitor Position Sitting Blood Pressure Location Right Arm History Since Last Visit- (Skip if this is Patient's initial visit) Left Footwear Regular Shoe Right Footwear No Footwear Pain Scale: 0-10 Numeric Is Patient Pain Free? Yes - Nurse 1 - General Ulcer Measurement Start: 01/24/25 13:13 Freq: Status: Active Protocol: Activity Type Activity Date Activity User E-sign Co-sign Detail Recorded Client Recorded Date Recorded By Document 01/24/25 13:13 KW [id number] 01/24/25 13:14 KW 01/24/25 13:13 Wound Center Nurse 1 #6 LT BUTTOCK/ISCHIAL -Current Size (cm) - Length 1.5 -Current Size (cm) - Width 2 -Current Size (cm) - Depth 0.2 -Total Square Cm 3.0 -Date of Last Picture (Recall this 01/24/25 field) -Granulation Amt Large (67-100%) -Granulation Quality [place],Red -Necrosis Amt Small (1-33%) -Necrotic Tissue Type Adherent Slough -Texture (Fadumo-wound Skin Appearance) Assessed -Moisture (Fadumo-wound Skin Appearance) Assessed -Color (Fadumo-wound Skin Appearance) Assessed -Temperature (Fadumo-wound Skin No Abnormality Appearance) (Pt Warm) -Tenderness on Palpation (Fadumo-wound No Skin Appearance) -Ulcer Cleansing Soap and Water -Foul Odor after Cleansing No -Anesthetic Used 5% Lidocaine Gel - Nurse 2 - General Ulcer CM Notes Start: 01/24/25 13:13 Freq: Status: Active Protocol: Activity Type Activity Date Activity User E-sign Co-sign Detail Recorded Client Recorded Date Recorded By Document 01/24/25 13:37 JOHANN [id number] 01/24/25 13:40 DS 01/24/25 13:37 Wound Center Nurse 2 -Time 13:37 -Correct Patient Yes -Correct Side, Site, Position Yes -Correct Procedure Yes -Procedure Performed Yes -Type of Procedure Debridement -Clinical Debridement Subcutaneous -Tissue Removed Subcutaneous -Post Debridement (cm) - Length 1.6 -Post Debridement (cm) - Width 2.0 -Post Debridement (cm) - Depth 0.3 -Total Square (Post) (cm) 3.20 -Area of Debridement (cm) - Length 1.6 -Area of Debridement (cm) - Width 2.0 -Total Square (Area) (cm) 3.20 -Tunneling No -Undermining/Tunneling No -Circular Undermining No -Wound/Ulcer Outcome Not Healed -Ulcer Cleansing gauze -Foul Odor after Cleansing No -Bioengineered Tissue No -Bleeding Controlled with Pressure -Treatment Response Procedure Tolerated Well -Debridement - Subq, 1st 20sq cm Yes Pain Scale: 0-10 Numeric Is Patient Pain Free? Yes - Nurse 3 - General Ulcer D/C NN Start: 01/24/25 13:13 Freq: Status: Active Protocol: Activity Type Activity Date Activity User E-sign Co-sign Detail Recorded Client Recorded Date Recorded By Document 01/24/25 13:48 [facility] [id number] 01/24/25 13:49 [facility] 01/24/25 13:48 Wound Care Center Nurse 3 #6 LT BUTTOCK/ISCHIAL -Ulcer Cleansing Rinsed/ Irrigated with Saline -Foul Odor after Cleansing No -Primary Dressing Applied AMD Dressing 4x4,C Hydrogel, Silicone Border Foam 4x4 -Other Dressing drsg per jf rn -AMD Dressing 4x4 1 -Hydrogel 1 -Silicone Border Foam 4x4 1 Treatment Response Procedure Tolerated Well Pain Scale: 0-10 Numeric Is Patient Pain Free? Yes WC - Visit Discharge Discharge Condition Stable Ambulatory Status Wheelchair Transportation Private Auto Accompanied by Charges/Coding Multi Select Codes Visit Charges Office Visit/Consults: 67058 OV L3 Est 20min Integumentary Integumentary CPT Codes: 53165 Padmini subq tissue 20 sq cm/< Assessment/Plan Assessment/Plan (1) Pressure ulcer of ischium, stage 3: CODE(S): L89.303 - Pressure ulcer of unspecified buttock, stage 3 QUALIFIERS: Laterality: left Qualified Code(s): L89.323 - Pressure ulcer of left buttock, stage 3 (2) Diabetes mellitus, type 2: CODE(S): E11.9 - Type 2 diabetes mellitus without complications QUALIFIERS: Diabetes mellitus fci insulin use: with termite renewal inspector use Diabetes mellitus complication status: with hyperglycemia Qualified Code(s): E11.65 - Type 2 diabetes mellitus with hyperglycemia; Z79.4 - supervisor intermediates (current) use of insulin (3) Morbid obesity with BMI of 50.0-59.9, adult: CODE(S): E66.01 - Morbid (severe) obesity due to excess calories; Z68.43 - Body mass index [BMI] 50.0-59.9, adult (4) Benign essential HTN: CODE(S): I10 - Essential (primary) hypertension (5) Hyperlipidemia: CODE(S): E78.5 - Hyperlipidemia, unspecified QUALIFIERS: Hyperlipidemia type: mixed hyperlipidemia Qualified Code(s): E78.2 - Mixed hyperlipidemia (6) Pulmonary hypertension: CODE(S): I27.20 - Pulmonary hypertension, unspecified (7) Chronic renal failure, stage 3 (moderate): CODE(S): N18.30 - Chronic kidney disease, stage 3 unspecified QUALIFIERS: Chronic kidney disease stage 3 subtype: unspecified whether 3a or 3b Qualified Code(s): N18.30 - Chronic kidney disease, stage 3 unspecified (8) Obesity: CODE(S): E66.9 - Obesity, unspecified QUALIFIERS: Obesity type: due to excess calories Obesity classification: adult class 3 (BMI >= 40) Serious obesity comorbidity presence: with serious comorbidity Body mass index: unspecified BMI Qualified Code(s): E66.01 - Morbid (severe) obesity due to excess calories (9) Melanoma in situ: CODE(S): D03.9 - Melanoma in situ, unspecified (10) Below knee amputation: CODE(S): S88.119A - 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, unspecified lower leg, initial encounter QUALIFIERS: Encounter type: subsequent encounter Laterality: right Qualified Code(s): S88.111D - 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, right lower leg, subsequent encounter (11) Hypothyroid: CODE(S): E03.9 - Hypothyroidism, unspecified QUALIFIERS: Hypothyroidism type: acquired Qualified Code(s): E03.9 - Hypothyroidism, unspecified (12) Hyperlipidemia: CODE(S): E78.5 - Hyperlipidemia, unspecified QUALIFIERS: Hyperlipidemia type: mixed hyperlipidemia Qualified Code(s): E78.2 - Mixed hyperlipidemia (13) Status post right mastectomy: CODE(S): Z90.11 - Acquired absence of right breast and nipple (14) Hx of cholecystectomy: CODE(S): Z98.890 - Other specified postprocedural states; Z90.49 - Acquired absence of other specified parts of digestive tract (15) History of tonsillectomy: CODE(S): Z90.89 - Acquired absence of other organs (16) History of carpal tunnel release: CODE(S): Z98.890 - Other specified postprocedural states (17) History of cardiac radiofrequency ablation: CODE(S): Z98.890 - Other specified postprocedural states (18) History of total abdominal hysterectomy and bilateral salpingo- oophorectomy: CODE(S): Z90.710 - Acquired absence of both cervix and uterus; Z90.722 - Acquired absence of ovaries, bilateral; Z90.79 - Acquired absence of other genital organ(s) (19) History of below-knee amputation: CODE(S): Z89.519 - Acquired absence of unspecified leg below knee QUALIFIERS: Laterality: right Qualified Code(s): Z89.511 - Acquired absence of right leg below knee (20) Diabetic neuropathy: CODE(S): E11.40 - Type 2 diabetes mellitus with diabetic neuropathy, unspecified QUALIFIERS: Diabetes mellitus type: type 2 Diabetes mellitus complication detail: diabetic polyneuropathy Qualified Code(s): E11.42 - Type 2 diabetes mellitus with diabetic polyneuropathy (21) BRITT (obstructive sleep apnea): CODE(S): G47.33 - Obstructive sleep apnea (adult) (pediatric) (22) History of endometrial cancer: CODE(S): Z85.42 - Personal history of malignant neoplasm of other parts of uterus (23) Rheumatoid arthritis: CODE(S): M06.9 - Rheumatoid arthritis, unspecified (24) Diverticulosis: CODE(S): K57.90 - Diverticulosis of intestine, part unspecified, without perforation or abscess without bleeding (25) GERD (gastroesophageal reflux disease): CODE(S): K21.9 - Gastro-esophageal reflux disease without esophagitis (26) History of kidney stones: CODE(S): Z87.442 - Personal history of urinary calculi (27) Hx of supraventricular tachycardia: CODE(S): Z86.79 - Personal history of other diseases of the circulatory system PLAN: Plan This is a 64-year-old obese diabetic female who presented with an abscess on her left buttock, which now remains as a stage III pressure ulceration. Offloading measures have been discussed with the patient in detail. She and her appear to understand the recommendations. She is currently wheelchair-bound, due to a prior right below-knee amputation, although she is destined to be fitted with a right lower extremity prosthesis in the near future. We are to make efforts to obtain a Roho cushion for the patient's wheelchair for offloading purposes. We are to implement the use of collagen hydrogel and a Isak AMD foam dressing with PHMB, which will be applied topically on a daily basis. The patient and her have been instructed in the appropriate means of application. The patient has been advised to optimize her nutritional intake, as well as her glycemic control. The patient is return in 1 week for reevaluation. Total time: 26 minutes
[2025-01-31 14:13] VITALS: BP 143/82; PULSE 86; RESP 18; TEMP 36.3; BMI 56.5
--- NOTE | 2025-02-01 08:52 | WC ---
PHOTO 01/31/25 LEFT ISCHIAL
--- NOTE | 2025-02-01 15:55 | PCM.WC.HP ---
History of Present Illness Date of Service: 01/31/25 Chief Complaint: Perirectal abscess History of Wound: This is a 64-year-old morbidly obese diabetic female with multiple pre-existing medical conditions. She was recently cared for at the [facility] for a surgical wound dehiscence of her right below-knee amputation stump incision. She was also treated for second-degree lyon of the lower abdomen. After many months of treatment, she subsequently healed, and was last seen at the Wound Center and discharged on November 08, 2024. The patient returned on December 28, 2024, with an abscess on the left ischium. According to the patient, the problem began approximately 8 days prior to her presentation, at which time she noted some bloody drainage at the site. She experienced increasing pain and discomfort in the area, and began to note the presence of brown, purulent drainage. She denied using a Roho or gel cushion for sitting in her wheelchair, although she has been wheelchair-bound for many months due to the dehiscence of her right below-knee amputation stump incision. The patient had been prescribed doxycycline orally by a provider at the [facility]. The left ischial abscess was incised and drained at the patient's Wound Center visit on December 28, 2024, with arrangements for the abscess cavity to be packed with moistened 1/4 inch Nu Gauze on a daily basis. The patient returned to the Wound Center for ongoing definitive management of the abscess site, which had improved significantly since the initial incision and drainage. The patient indicated that she is anticipating the fitting of a prosthesis in the near future, and is collaborating with [employer] towards this objective. The patient is known to be a diabetic, and has had some difficulties with regulation. The patient underwent a right mastectomy with sentinel lymph node biopsy by Dr. Knapp on March 15, 2024. FOR[facility]LY [facility] Medical History Pressure ulcer of ischium, stage 3 Gout History of renal disease Low iron Gastric reflux Hypertension Non-pressure chronic ulcer of right lower leg with fat layer exposed Burn of trunk, second degree Dehiscence of incision GERD (gastroesophageal reflux disease) Hyperlipidemia Tinea cruris Non-pressure chronic ulcer of right calf with fat layer exposed Wears glasses Post-menopausal Cancer Anxiety Open wound Thyroid disease Insulin dependent diabetes mellitus Uses wheelchair Fatty liver High cholesterol Dietary restriction Non-smoker History of edema History of echocardiogram History of stress test Cardiology follow-up encounter Invasive ductal carcinoma of right breast in female Surgical wound dehiscence Right leg swelling History of endometrial cancer Rheumatoid arthritis Diverticulosis Chronic renal failure, stage 3 (moderate) Pulmonary hypertension GERD (gastroesophageal reflux disease) Hyperlipidemia History of kidney stones Breast cancer in female Morbid obesity with BMI of 50.0-59.9, adult Hydronephrosis Ureteral calculus Charcot ankle Diabetic neuropathy Morbid obesity with BMI of 50.0-59.9, adult Diverticulosis Diabetes mellitus, type 2 Chronic renal failure (CRF), stage 3a Anemia Rheumatoid arthritis Chronic pain CPAP (continuous positive airway pressure) dependence Pulmonary hypertension BRITT (obstructive sleep apnea) Thyromegaly Hx of supraventricular tachycardia Nephrolithiasis Rosacea Fatty liver External hemorrhoid GERD without esophagitis Benign essential HTN Bilateral carpal tunnel syndrome Hyperlipidemia Low vitamin B12 level Multinodular goiter Tubular adenoma Adenocarcinoma of endometrium Home Medications Medication Instructions Recorded Last Taken Type cetirizine 10 mg capsule 10 mg PO DAILY Allergies 01/11/16 11/15/24 History metoprolol succinate 100 mg 100 mg PO DAILY BP 01/11/16 11/16/24 History tablet,extended release 24 hr multivitamin 1 ea PO DAILY Supplement 01/11/16 11/15/24 History omeprazole 40 mg capsule,delayed 40 mg PO DAILY GERD 01/11/16 11/16/24 History release simvastatin 20 mg tablet 20 mg PO QHS Cholestrol 01/11/16 11/15/24 History cyanocobalamin (vitamin B-12) 1,000 mcg PO DAILY Supplement 07/02/17 11/15/24 History 1,000 mcg sublingual tablet pregabalin 150 mg capsule (Lyrica) 150 mg PO TID NERVE PAIN 06/14/18 11/15/24 History ferrous sulfate 325 mg (65 mg 325 mg PO DAILY supplement 04/25/20 11/15/24 History iron) tablet (Feosol) allopurinol 100 mg tablet 100 mg PO DAILY #30 tabs 11/18/23 11/15/24 Rx ascorbic acid (vitamin C) 500 mg 1,000 mg (2 x 500 mg) PO DAILY #30 11/18/23 11/15/24 Rx tablet tabs calcium carbonate (Oyster Shell 500 mg PO BREAKFAST #30 tabs 11/18/23 11/15/24 Rx Calcium 500) blood sugar diagnostic (OneTouch #100 ea 12/03/23 Unknown Rx Ultra Test strips) OneTouch Delica Plus Lancet 33 #100 ea 12/04/23 Unknown Rx gauge (lancets) buspirone 5 mg tablet 5 mg PO TID #90 tabs 12/11/23 11/15/24 Rx fiber 1 cap PO DAILY 12/25/23 11/15/24 History anastrozole 1 mg tablet (Arimidex) 1 mg PO DAILY #90 tabs 02/24/24 11/15/24 Rx insulin lispro 100 unit/mL See Protocol subcut DAILY PRN 03/15/24 03/13/24 History subcutaneous pen elevated BS pen needle, diabetic 31 gauge x #300 ea 05/19/24 Unknown Rx 5/16" (1st Tier Unifine Pentips) blood-glucose sensor (Dexcom G6 #9 ea 05/30/24 Unknown Rx Sensor device) blood-glucose transmitter (Dexcom #1 ea 05/30/24 Unknown Rx G6 Transmitter device) aripiprazole 2 mg tablet 2 mg PO QDAY 06/21/24 Unknown History aspirin 81 mg tablet,delayed 81 mg PO QDAY 06/21/24 11/15/24 History release (Adult Low Dose Aspirin) blood-glucose sensor (Dexcom G6 #9 ea 06/21/24 Unknown Rx Sensor device) cholecalciferol (vitamin D3) 125 125 mcg PO QDAY 06/21/24 11/15/24 History mcg (5,000 unit) capsule escitalopram oxalate 10 mg tablet See Rx Instructions PO DAILY 06/21/24 11/15/24 History sennosides 8.6 mg tablet 8.6 mg PO QDAY 06/21/24 11/15/24 History losartan 50 mg tablet (Cozaar) 50 mg PO DAILY #90 tabs 08/10/24 11/16/24 Rx insulin regular hum U-500 conc 500 See Rx Instructions subcut QHS 11/04/24 11/15/24 History unit/mL(3 mL) subcut pen (Humulin R U-500 (Conc) Insulin Kwikpen) levothyroxine 300 mcg tablet 300 mcg PO MOTUWETHFRSA #90 tabs 12/05/24 Unknown Rx insulin lispro 100 unit/mL 20 unit (0.2 mL) subcut TID PRN 12/09/24 Unknown Rx subcutaneous pen BLOOD SUGARS #60 mL tirzepatide 12.5 mg/0.5 mL 12.5 mg (0.5 mL) subcut QWEEK #6 mL 12/27/24 Unknown Rx subcutaneous pen injector (Mounjaro) Allergy/AdvReac Type Severity Reaction Status Date / Time No Known Allergies Allergy Verified 01/24/25 13:06 Family History Mother Ovarian cancer Hypertension Arthritis Uterine cancer Fibrocystic disease of breast Hypothyroid Father , Age 86-CHF Hypertension Arthritis Diverticulitis of colon Depression CAD (coronary artery disease) Sister Hypertension Depression CVA (cerebral vascular accident) Fibrocystic disease of breast Diabetes Bleeding disorder Portal hypertension Surgical History History of lithotripsy History of right mastectomy Status post right mastectomy History of cardiac catheterization Hx of cystoscopy Hx of total thyroidectomy History of tonsillectomy History of carpal tunnel release History of cardiac radiofrequency ablation History of total abdominal hysterectomy and bilateral salpingo-oophorectomy History of below-knee amputation S/P cystoscopy with ureteral stent placement History of right below knee amputation History of hand surgery H/O cardiac radiofrequency ablation (02/15/13) History of right and left heart catheterization (07/03/17) H/O colonoscopy H/O abdominal hysterectomy H/O carpal tunnel repair Previous section History of tonsillectomy Hx of cholecystectomy Surgical menopause Social History Smoking Status: Never smoker second hand exposure: No alcohol intake: never substance use type: does not use caffeine: No Vital Signs Vital Signs Vital Signs: Weight Weight: 350 lb Body Mass Index (BMI) 56.5 Physical Exam Const alert, oriented x3, no apparent distress and well nourished Constitutional Narrative: The patient is morbidly obese, with a BMI of 56.5. General Appearance: cooperative, comfortable, well kempt and well developed Orientation / Consciousness: awake, oriented to person, oriented to place and oriented to time Exam Limitations: no limitations HEENT normocephalic and head/scalp atraumatic Head and Scalp: normal to inspection, normocephalic and atraumatic Face and Sinus: normal facial exam Nose: external nose normal External Ear: external ears normal Eyes EOMs intact bilaterally General Eye: normal appearance of both eyes Neck full ROM Resp normal respiratory effort, normal air movement, no retractions and no use of accessory muscles Effort and Inspection: able to speak in complete sentences Extremity no calf tenderness Extremity Narrative: An unremarkable right below-knee amputation stump is noted. Skin Wound Narrative: A wound is noted on the patient's left ischium/buttock. The base of the wound is generally pink and healthy in appearance, with a small amount of bioburden. There is no sign of infection or cellulitis. Wound margins are reasonably well beveled. Dimensions are documented elsewhere. Since the patient's last visit, several weeks ago, the abscess cavity has diminished significantly in size and depth. The ulceration extends through all layers of the dermis and into the subcutaneous tissues, representing a stage III pressure ulceration. Neuro oriented x3, CN's II-XII intact bilaterally, moves all extremities, no focal motor deficits and no sensory deficits noted Sensorium / Orientation: awake, alert, oriented to person, oriented to place and oriented to time Speech: speech normal Psych Appearance: grossly normal and appropriate Attitude: calm Activity / Motor Behavior: appropriate eye contact Speech: normal speech Mood & Affect: euthymic mood Thought Process: normal thought process Thought Content: normal thought content Attention / Concentration: attention grossly intact Debridement Note Debridement Note Wound debrided: Left ischial pressure ulceration Laterality: Left Wound Grade/Stage: Stage III Type of Debridement: Excisional debridement Anesthesia Used: 5% Lidocaine Gel Depth: Down to and including healthy tissue and in the subcutaneous layer Percentage of wound debrided: 100 Instrument Used: 5mm curette Tissue Removed: Bioburden Severity: Fat Layer Exposed Amount of bleeding with debridement: Mild Bleeding Controlled with: Compression and gauze Patient tolerated procedure: Patient tolerated procedure well Post-Debridement Measurements and Additional Note: Post-Debridement Measurements/Treatment JIA - Nurse 1 - General Ulcer Assessment Start: 01/24/25 13:13 Freq: Status: Active Protocol: MATT Activity Type Activity Date Activity User E-sign Co-sign Detail Recorded Client Recorded Date Recorded By Document 01/24/25 13:13 KW [id number] 01/24/25 13:14 KW Edit Result 01/24/25 13:13 KW (1) [id number] 01/24/25 13:15 KW Document 01/31/25 14:13 KW [id number] 01/31/25 14:20 KW (1) Height => 5 ft 6 in Weight => 350 lb Weight in Pounds => 350.0 lbs Body Mass Index (BMI) => 56.5 BMI Classification => Obese 01/24/25 01/31/25 13:13 14:13 WC - Today's Visit Information Type of service Initial Visit Follow-up Visit (Physician/VACATION GUIDE ) Arrival Mode Wheelchair Wheelchair Accompanied by Patient Identification Verified (Name & Yes Yes ) Height and Weight Height 5 ft 6 in Weight 350 lb Weight in Pounds 350.0 lbs Body Mass Index (BMI) 56.5 56.5 BMI Classification Obese Obese Vital Signs Temperature (97.8 F-99.1 F) 97.9 F 97.4 F L Temperature Source Temporal Temporal Pulse Rate (60-100) 84 86 Pulse Location Monitor Monitor Respiratory Rate (12-18) 18 18 Respiratory rate source Observation Observation Oxygen Delivery Method Room Air Room Air Blood Pressure (90/60-120/80) 183/83 H 143/82 H Blood Pressure Mean 116 102 Source Monitor Monitor Position Sitting Sitting Blood Pressure Location Right Arm Left Forearm History Since Last Visit- (Skip if this is Patient's initial visit) Have you changed medications since your No last visit? Any new allergies or adverse reactions No Had a fall/change in ADL's that may No increase risk of falls Signs or symptoms of abuse and/or No neglect since last visit Have you been in the hospital since your No last visit? Has dressing in place as prescribed Yes Has compression in place as prescribed N/A Has offloadiing in place as prescribed N/A Experienced any changes in pain level or No management Left Footwear Regular Shoe Regular Shoe Right Footwear No Footwear No Footwear Pain Scale: 0-10 Numeric Is Patient Pain Free? Yes Yes - Nurse 1 - General Ulcer Measurement Start: 01/24/25 13:13 Freq: Status: Active Protocol: Activity Type Activity Date Activity User E-sign Co-sign Detail Recorded Client Recorded Date Recorded By Document 01/24/25 13:13 KW [id number] 01/24/25 13:14 KW Document 01/31/25 14:13 KW [id number] 01/31/25 14:20 KW 01/24/25 01/31/25 13:13 14:13 Wound Center Nurse 1 #6 LT BUTTOCK/ISCHIAL -Current Size (cm) - Length 1.5 1 -Current Size (cm) - Width 2 1.2 -Current Size (cm) - Depth 0.2 0.1 -Total Square Cm 3.0 1.2 -Date of Last Picture (Recall this 01/24/25 01/31/25 field) -Exudate Amt Small -Exudate Type Serosanguineous -Wound Margin Distinct, Outline Attached -Granulation Amt Large (67-100%) Large (67-100%) -Granulation Quality [place],Red Red -Necrosis Amt Small (1-33%) -Necrotic Tissue Type Adherent Slough -Texture (Fadumo-wound Skin Appearance) Assessed Assessed -Moisture (Fadumo-wound Skin Appearance) Assessed Assessed -Color (Fadumo-wound Skin Appearance) Assessed Assessed -Temperature (Fadumo-wound Skin No Abnormality No Abnormality Appearance) (Pt Warm) (Pt Warm) -Tenderness on Palpation (Fadumo-wound No No Skin Appearance) -Ulcer Cleansing Soap and Water Rinsed/ Irrigated with Saline -Foul Odor after Cleansing No No -Anesthetic Used 5% Lidocaine 5% Lidocaine Gel Gel WC - Nurse 2 - General Ulcer CM Notes Start: 01/24/25 13:13 Freq: Status: Active Protocol: Activity Type Activity Date Activity User E-sign Co-sign Detail Recorded Client Recorded Date Recorded By Document 01/24/25 13:37 DS [id number] 01/24/25 13:40 DS Document 01/31/25 14:41 DS [id number] 01/31/25 14:42 DS 01/24/25 01/31/25 13:37 14:41 Wound Center Nurse 2 #6 LT BUTTOCK/ISCHIAL -Time 13:37 14:41 -Correct Patient Yes Yes -Correct Side, Site, Position Yes Yes -Correct Procedure Yes Yes -Procedure Performed Yes Yes -Type of Procedure Debridement Debridement -Clinical Debridement Subcutaneous Subcutaneous -Tissue Removed Subcutaneous Subcutaneous -Post Debridement (cm) - Length 1.6 1.2 -Post Debridement (cm) - Width 2.0 1.5 -Post Debridement (cm) - Depth 0.3 0.1 -Total Square (Post) (cm) 3.20 1.80 -Area of Debridement (cm) - Length 1.6 1.2 -Area of Debridement (cm) - Width 2.0 1.5 -Total Square (Area) (cm) 3.20 1.80 -Tunneling No No -Undermining/Tunneling No No -Circular Undermining No No -Wound/Ulcer Outcome Not Healed Not Healed -Ulcer Cleansing gauze -Foul Odor after Cleansing No No -Bioengineered Tissue No No -Bleeding Controlled with Pressure Pressure -Treatment Response Procedure Procedure Tolerated Well Tolerated Well -Debridement - Subq, 1st 20sq cm Yes Yes Pain Scale: 0-10 Numeric Is Patient Pain Free? Yes Yes - Nurse 3 - General Ulcer D/C NN Start: 01/24/25 13:13 Freq: Status: Active Protocol: Activity Type Activity Date Activity User E-sign Co-sign Detail Recorded Client Recorded Date Recorded By Document 01/24/25 13:48 [facility] [id number] 01/24/25 13:49 [facility] Document 01/31/25 15:00 [facility] [id number] 01/31/25 15:03 [facility] 01/24/25 01/31/25 13:48 15:00 Wound Care Center Nurse 3 #6 LT BUTTOCK/ISCHIAL -Ulcer Cleansing Rinsed/ Rinsed/ Irrigated with Irrigated with Saline Saline -Foul Odor after Cleansing No No -Primary Dressing Applied AMD Dressing Silicone Border 4x4,C Hydrogel, Foam 4x4 Silicone Border Foam 4x4 -Other Dressing drsg per jf rn hydrogel -Primary Dressing Covered/Secured with Dry Gauze -AMD Dressing 4x4 1 -Hydrogel 1 -Silicone Border Foam 4x4 1 1 Treatment Response Procedure Tolerated Well Pain Scale: 0-10 Numeric Is Patient Pain Free? Yes Yes - Visit Discharge Discharge Condition Stable Stable Ambulatory Status Wheelchair Wheelchair Transportation Private Auto Private Auto Accompanied by Charges/Coding Procedures Integumentary [id number]: [id number] Padmini subq tissue 20 sq cm/< Assessment/Plan Assessment/Plan (1) Pressure ulcer of ischium, stage 3: CODE(S): L89.303 - Pressure ulcer of unspecified buttock, stage 3 QUALIFIERS: Laterality: left Qualified Code(s): L89.323 - Pressure ulcer of left buttock, stage 3 (2) Diabetes mellitus, type 2: CODE(S): E11.9 - Type 2 diabetes mellitus without complications QUALIFIERS: Diabetes mellitus longwall foreman insulin use: with half-way use Diabetes mellitus complication status: with hyperglycemia Qualified Code(s): E11.65 - Type 2 diabetes mellitus with hyperglycemia; Z79.4 - termination clerk (current) use of insulin (3) Morbid obesity with BMI of 50.0-59.9, adult: CODE(S): E66.01 - Morbid (severe) obesity due to excess calories; Z68.43 - Body mass index [BMI] 50.0-59.9, adult (4) Benign essential HTN: CODE(S): I10 - Essential (primary) hypertension (5) Hyperlipidemia: CODE(S): E78.5 - Hyperlipidemia, unspecified QUALIFIERS: Hyperlipidemia type: mixed hyperlipidemia Qualified Code(s): E78.2 - Mixed hyperlipidemia (6) Pulmonary hypertension: CODE(S): I27.20 - Pulmonary hypertension, unspecified (7) Chronic renal failure, stage 3 (moderate): CODE(S): N18.30 - Chronic kidney disease, stage 3 unspecified QUALIFIERS: Chronic kidney disease stage 3 subtype: unspecified whether 3a or 3b Qualified Code(s): N18.30 - Chronic kidney disease, stage 3 unspecified (8) Obesity: CODE(S): E66.9 - Obesity, unspecified QUALIFIERS: Obesity type: due to excess calories Obesity classification: adult class 3 (BMI >= 40) Serious obesity comorbidity presence: with serious comorbidity Body mass index: unspecified BMI Qualified Code(s): E66.01 - Morbid (severe) obesity due to excess calories (9) Melanoma in situ: CODE(S): D03.9 - Melanoma in situ, unspecified (10) Below knee amputation: CODE(S): S88.119A - 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, unspecified lower leg, initial encounter QUALIFIERS: Encounter type: subsequent encounter Laterality: right Qualified Code(s): S88.111D - 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, right lower leg, subsequent encounter (11) Hypothyroid: CODE(S): E03.9 - Hypothyroidism, unspecified QUALIFIERS: Hypothyroidism type: acquired Qualified Code(s): E03.9 - Hypothyroidism, unspecified (12) Hyperlipidemia: CODE(S): E78.5 - Hyperlipidemia, unspecified QUALIFIERS: Hyperlipidemia type: mixed hyperlipidemia Qualified Code(s): E78.2 - Mixed hyperlipidemia (13) Status post right mastectomy: CODE(S): Z90.11 - Acquired absence of right breast and nipple (14) Hx of cholecystectomy: CODE(S): Z98.890 - Other specified postprocedural states; Z90.49 - Acquired absence of other specified parts of digestive tract (15) History of tonsillectomy: CODE(S): Z90.89 - Acquired absence of other organs (16) History of carpal tunnel release: CODE(S): Z98.890 - Other specified postprocedural states (17) History of cardiac radiofrequency ablation: CODE(S): Z98.890 - Other specified postprocedural states (18) History of total abdominal hysterectomy and bilateral salpingo-oophorectomy: CODE(S): Z90.710 - Acquired absence of both cervix and uterus; Z90.722 - Acquired absence of ovaries, bilateral; Z90.79 - Acquired absence of other genital organ(s) (19) History of below-knee amputation: CODE(S): Z89.519 - Acquired absence of unspecified leg below knee QUALIFIERS: Laterality: right Qualified Code(s): Z89.511 - Acquired absence of right leg below knee (20) Diabetic neuropathy: CODE(S): E11.40 - Type 2 diabetes mellitus with diabetic neuropathy, unspecified QUALIFIERS: Diabetes mellitus type: type 2 Diabetes mellitus complication detail: diabetic polyneuropathy Qualified Code(s): E11.42 - Type 2 diabetes mellitus with diabetic polyneuropathy (21) BRITT (obstructive sleep apnea): CODE(S): G47.33 - Obstructive sleep apnea (adult) (pediatric) (22) History of endometrial cancer: CODE(S): Z85.42 - Personal history of malignant neoplasm of other parts of uterus (23) Rheumatoid arthritis: CODE(S): M06.9 - Rheumatoid arthritis, unspecified (24) Diverticulosis: CODE(S): K57.90 - Diverticulosis of intestine, part unspecified, without perforation or abscess without bleeding (25) GERD (gastroesophageal reflux disease): CODE(S): K21.9 - Gastro-esophageal reflux disease without esophagitis (26) History of kidney stones: CODE(S): Z87.442 - Personal history of urinary calculi (27) Hx of supraventricular tachycardia: CODE(S): Z86.79 - Personal history of other diseases of the circulatory system PLAN: Plan This is a 64-year-old obese, diabetic female who presented with an abscess on her left buttock, which now manifests as a stage III pressure ulceration. Offloading measures have been discussed with the patient in detail. She and her appear to understand the recommendations. She is currently wheelchair-bound, due to a prior right below-knee amputation, although she is destined to be fitted with a right lower extremity prosthesis in the near future. Efforts to obtain a Roho cushion for the patient's wheelchair are underway for offloading purposes. We are to continue the use of collagen hydrogel and a Isak AMD foam dressing with PHMB, which will be applied topically on a daily basis. The patient and her have been instructed in the appropriate means of application. The patient has been advised to optimize her nutritional intake, as well as her glycemic control. The patient is return in 1 week for reevaluation. Total time: 24 minutes
[2025-02-07 14:36] VITALS: BP 130/40; PULSE 83; RESP 16; TEMP 36.6; BMI 56.5
--- NOTE | 2025-02-08 13:47 | WC ---
PHOTO 02/07/25 LEFT ISCHIAL
--- NOTE | 2025-02-11 17:50 | PCM.WC.HP ---
History of Present Illness Date of Service: 02/07/25 Chief Complaint: Perirectal abscess History of Wound: This is a 64-year-old morbidly obese diabetic female with multiple pre-existing medical conditions. She was recently cared for at the [facility] for a surgical wound dehiscence of her right below-knee amputation stump incision. She was also treated for second-degree lyon of the lower abdomen. After many months of treatment, she subsequently healed, and was last seen at the Wound Center and discharged on November 08, 2024. The patient returned on December 28, 2024, with an abscess on the left ischium. According to the patient, the problem began approximately 8 days prior to her presentation, at which time she noted some bloody drainage at the site. She experienced increasing pain and discomfort in the area, and began to note the presence of brown, purulent drainage. She denied using a Roho or gel cushion for sitting in her wheelchair, although she has been wheelchair-bound for many months due to the dehiscence of her right below-knee amputation stump incision. The patient had been prescribed doxycycline orally by a provider at the [facility]. The left ischial abscess was incised and drained at the patient's Wound Center visit on December 28, 2024, with arrangements for the abscess cavity to be packed with moistened 1/4 inch Nu Gauze on a daily basis. The patient returned to the Wound Center for ongoing definitive management of the abscess site, which had improved significantly since the initial incision and drainage. The patient indicated that she is anticipating the fitting of a prosthesis in the near future, and is collaborating with [employer] towards this objective. The patient is known to be a diabetic, and has had some difficulties with regulation. The patient underwent a right mastectomy with sentinel lymph node biopsy by Dr. Knapp on March 15, 2024. [facility] Medical History Pressure ulcer of ischium, stage 3 Gout History of renal disease Low iron Gastric reflux Hypertension Non-pressure chronic ulcer of right lower leg with fat layer exposed Burn of trunk, second degree Dehiscence of incision GERD (gastroesophageal reflux disease) Hyperlipidemia Tinea cruris Non-pressure chronic ulcer of right calf with fat layer exposed Wears glasses Post-menopausal Cancer Anxiety Open wound Thyroid disease Insulin dependent diabetes mellitus Uses wheelchair Fatty liver High cholesterol Dietary restriction Non-smoker History of edema History of echocardiogram History of stress test Cardiology follow-up encounter Invasive ductal carcinoma of right breast in female Surgical wound dehiscence Right leg swelling History of endometrial cancer Rheumatoid arthritis Diverticulosis Chronic renal failure, stage 3 (moderate) Pulmonary hypertension GERD (gastroesophageal reflux disease) Hyperlipidemia History of kidney stones Breast cancer in female Morbid obesity with BMI of 50.0-59.9, adult Hydronephrosis Ureteral calculus Charcot ankle Diabetic neuropathy Morbid obesity with BMI of 50.0-59.9, adult Diverticulosis Diabetes mellitus, type 2 Chronic renal failure (CRF), stage 3a Anemia Rheumatoid arthritis Chronic pain CPAP (continuous positive airway pressure) dependence Pulmonary hypertension BRITT (obstructive sleep apnea) Thyromegaly Hx of supraventricular tachycardia Nephrolithiasis Rosacea Fatty liver External hemorrhoid GERD without esophagitis Benign essential HTN Bilateral carpal tunnel syndrome Hyperlipidemia Low vitamin B12 level Multinodular goiter Tubular adenoma Adenocarcinoma of endometrium Home Medications Medication Instructions Recorded Last Taken Type cetirizine 10 mg capsule 10 mg PO DAILY Allergies 01/11/16 11/15/24 History metoprolol succinate 100 mg 100 mg PO DAILY BP 01/11/16 11/16/24 History tablet,extended release 24 hr multivitamin 1 ea PO DAILY Supplement 01/11/16 11/15/24 History omeprazole 40 mg capsule,delayed 40 mg PO DAILY GERD 01/11/16 11/16/24 History release simvastatin 20 mg tablet 20 mg PO QHS Cholestrol 01/11/16 11/15/24 History cyanocobalamin (vitamin B-12) 1,000 mcg PO DAILY Supplement 07/02/17 11/15/24 History 1,000 mcg sublingual tablet pregabalin 150 mg capsule (Lyrica) 150 mg PO TID NERVE PAIN 06/14/18 11/15/24 History ferrous sulfate 325 mg (65 mg 325 mg PO DAILY supplement 04/25/20 11/15/24 History iron) tablet (Feosol) allopurinol 100 mg tablet 100 mg PO DAILY #30 tabs 11/18/23 11/15/24 Rx ascorbic acid (vitamin C) 500 mg 1,000 mg (2 x 500 mg) PO DAILY #30 11/18/23 11/15/24 Rx tablet tabs calcium carbonate (Oyster Shell 500 mg PO BREAKFAST #30 tabs 11/18/23 11/15/24 Rx Calcium 500) blood sugar diagnostic (OneTouch #100 ea 12/03/23 Unknown Rx Ultra Test strips) OneTouch Delica Plus Lancet 33 #100 ea 12/04/23 Unknown Rx gauge (lancets) buspirone 5 mg tablet 5 mg PO TID #90 tabs 12/11/23 11/15/24 Rx fiber 1 cap PO DAILY 12/25/23 11/15/24 History anastrozole 1 mg tablet (Arimidex) 1 mg PO DAILY #90 tabs 02/24/24 11/15/24 Rx insulin lispro 100 unit/mL See Protocol subcut DAILY PRN 03/15/24 03/13/24 History subcutaneous pen elevated BS pen needle, diabetic 31 gauge x #300 ea 05/19/24 Unknown Rx 12/09" (1st Tier Unifine Pentips) blood-glucose sensor (Dexcom G6 #9 ea 05/30/24 Unknown Rx Sensor device) blood-glucose transmitter (Dexcom #1 ea 05/30/24 Unknown Rx G6 Transmitter device) aripiprazole 2 mg tablet 2 mg PO QDAY 06/21/24 Unknown History aspirin 81 mg tablet,delayed 81 mg PO QDAY 06/21/24 11/15/24 History release (Adult Low Dose Aspirin) blood-glucose sensor (Dexcom G6 #9 ea 06/21/24 Unknown Rx Sensor device) cholecalciferol (vitamin D3) 125 125 mcg PO QDAY 06/21/24 11/15/24 History mcg (5,000 unit) capsule escitalopram oxalate 10 mg tablet See Rx Instructions PO DAILY 06/21/24 11/15/24 History sennosides 8.6 mg tablet 8.6 mg PO QDAY 06/21/24 11/15/24 History insulin regular hum U-500 conc 500 See Rx Instructions subcut QHS 11/04/24 11/15/24 History unit/mL(3 mL) subcut pen (Humulin R U-500 (Conc) Insulin Kwikpen) levothyroxine 300 mcg tablet 300 mcg PO MOTUWETHFRSA #90 tabs 12/05/24 Unknown Rx insulin lispro 100 unit/mL 20 unit (0.2 mL) subcut TID PRN 12/09/24 Unknown Rx subcutaneous pen BLOOD SUGARS #60 mL tirzepatide 12.5 mg/0.5 mL 12.5 mg (0.5 mL) subcut QWEEK #6 mL 12/27/24 Unknown Rx subcutaneous pen injector (Mounjaro) losartan 50 mg tablet (Cozaar) 50 mg PO DAILY #90 tabs 02/08/25 Unknown Rx Allergy/AdvReac Type Severity Reaction Status Date / Time No Known Allergies Allergy Verified 02/07/25 14:00 Family History Mother Ovarian cancer Hypertension Arthritis Uterine cancer Fibrocystic disease of breast Hypothyroid Father , Age 86-CHF Hypertension Arthritis Diverticulitis of colon Depression CAD (coronary artery disease) Sister Hypertension Depression CVA (cerebral vascular accident) Fibrocystic disease of breast Diabetes Bleeding disorder Portal hypertension Surgical History History of lithotripsy History of right mastectomy Status post right mastectomy History of cardiac catheterization Hx of cystoscopy Hx of total thyroidectomy History of tonsillectomy History of carpal tunnel release History of cardiac radiofrequency ablation History of total abdominal hysterectomy and bilateral salpingo-oophorectomy History of below-knee amputation S/P cystoscopy with ureteral stent placement History of right below knee amputation History of hand surgery H/O cardiac radiofrequency ablation (02/15/13) History of right and left heart catheterization (07/03/17) H/O colonoscopy H/O abdominal hysterectomy H/O carpal tunnel repair Previous section History of tonsillectomy Hx of cholecystectomy Surgical menopause Social History Smoking Status: Never smoker second hand exposure: No alcohol intake: never substance use type: does not use caffeine: No Vital Signs Vital Signs Vital Signs: Weight Weight: 350 lb Body Mass Index (BMI) 56.5 Physical Exam Narrative ECOG 2, seen in a wheelchair Const alert, oriented x3, no apparent distress, no limitations, healthy appearing and well nourished Constitutional Narrative: The patient is morbidly obese. Her BMI is 56.5. General Appearance: cooperative, comfortable, well kempt and well developed Orientation / Consciousness: awake, oriented to person, oriented to place and oriented to time Exam Limitations: no limitations Nutritional Appearance: overweight and morbidly obese HEENT normocephalic and head/scalp atraumatic Head and Scalp: normal to inspection, normocephalic and atraumatic Face and Sinus: normal facial exam Nose: external nose normal External Ear: external ears normal Eyes EOMs intact bilaterally General Eye: normal appearance of both eyes Neck full ROM Resp normal respiratory effort, normal air movement, no retractions and no use of accessory muscles Effort and Inspection: able to speak in complete sentences Cardio Jugular Venous Distention: Negative for JVD Extremity Extremity Narrative: Right lower extremity below-knee amputation. Skin Wound Narrative: An ulceration is noted on the patient's left ischium/buttock. The base of the ulceration is generally pink and healthy in appearance, with a small amount of bioburden. There is no sign of infection or cellulitis. Ulcer margins are well beveled. Dimensions are documented elsewhere. There appears to be evidence of peripheral epithelialization, resulting in a decrease in the dimensions of the patient's ulceration. The ulceration extends through all layers of the dermis and into the subcutaneous tissues, representing a stage III pressure ulceration. Neuro oriented x3, CN's II-XII intact bilaterally, moves all extremities, no focal motor deficits and no sensory deficits noted Sensorium / Orientation: awake, alert, oriented to person, oriented to place and oriented to time Speech: speech normal Gait (Neuro): unable to assess gait Psych mental status grossly normal Debridement Note Debridement Note Wound debrided: Left ischial pressure ulceration Laterality: Left Wound Grade/Stage: Stage III Type of Debridement: Excisional debridement Anesthesia Used: 5% Lidocaine Gel Depth: Down to and including healthy tissue and in the subcutaneous layer Percentage of wound debrided: 100 Instrument Used: 5mm curette Tissue Removed: Bioburden Severity: Fat Layer Exposed Amount of bleeding with debridement: Mild Bleeding Controlled with: Compression and gauze Patient tolerated procedure: Patient tolerated procedure well Post-Debridement Measurements and Additional Note: Post-Debridement Measurements/Treatment JIA - Nurse 1 - General Ulcer Assessment Start: 01/24/25 13:13 Freq: Status: Active Protocol: MATT Activity Type Activity Date Activity User E-sign Co-sign Detail Recorded Client Recorded Date Recorded By Document 01/24/25 13:13 KW [id number] 01/24/25 13:14 KW Edit Result 01/24/25 13:13 KW (1) [id number] 01/24/25 13:15 KW Document 01/31/25 14:13 KW [id number] 01/31/25 14:20 KW Document 02/07/25 14:36 BMF [id number] 02/07/25 14:43 BMF (1) Height => 5 ft 6 in Weight => 350 lb Weight in Pounds => 350.0 lbs Body Mass Index (BMI) => 56.5 BMI Classification => Obese 01/24/25 01/31/25 02/07/25 13:13 14:13 14:36 WC - Today's Visit Information Type of service Initial Visit Follow-up Visit Follow-up Visit (Physician/FRESH FO[employer] CAKE DECORATOR (Physician/FRESH FO[employer] CAKE DECORATOR ) ) Arrival Mode Wheelchair Wheelchair Wheelchair Transfer Assistance Other Transfer Assist (Other) 1 Accompanied by Patient Identification Verified (Name & Yes Yes Yes ) Patient Requires Transmission-Based No Precautions Height and Weight Height 5 ft 6 in Weight 350 lb Weight in Pounds 350.0 lbs Body Mass Index (BMI) 56.5 56.5 56.5 BMI Classification Obese Obese Obese Vital Signs Temperature (97.8 F-99.1 F) 97.9 F 97.4 F L 98 F Temperature Source Temporal Temporal Temporal Pulse Rate (60-100) 84 86 83 Pulse Location Monitor Monitor Monitor Respiratory Rate (12-18) 18 18 16 Respiratory rate source Observation Observation Observation Oxygen Delivery Method Room Air Room Air Room Air Blood Pressure (90/60-120/80) 183/83 H 143/82 H 130/40 H Blood Pressure Mean 116 102 70 Source Monitor Monitor Monitor Position Sitting Sitting Sitting Blood Pressure Location Right Arm Left Forearm Right Arm History Since Last Visit- (Skip if this is Patient's initial visit) Have you changed medications since your No No last visit? Any new allergies or adverse reactions No No Had a fall/change in ADL's that may No No increase risk of falls Signs or symptoms of abuse and/or No No neglect since last visit Have you been in the hospital since your No No last visit? Has dressing in place as prescribed Yes Yes Has compression in place as prescribed N/A N/A Has offloadiing in place as prescribed N/A N/A Experienced any changes in pain level or No No management Left Footwear Regular Shoe Regular Shoe Regular Shoe Right Footwear No Footwear No Footwear Regular Shoe Pain Scale: 0-10 Numeric Is Patient Pain Free? Yes Yes Yes - Nurse 1 - General Ulcer Measurement Start: 01/24/25 13:13 Freq: Status: Active Protocol: Activity Type Activity Date Activity User E-sign Co-sign Detail Recorded Client Recorded Date Recorded By Document 01/24/25 13:13 KW [id number] 01/24/25 13:14 KW Document 01/31/25 14:13 KW [id number] 01/31/25 14:20 KW Document 02/07/25 14:36 [facility] [id number] 02/07/25 14:43 [facility] 01/24/25 01/31/25 02/07/25 13:13 14:13 14:36 Wound Center Nurse 1 #6 LT BUTTOCK/ISCHIAL -Combined with other wound No -Current Size (cm) - Length 1.5 1 0.9 -Current Size (cm) - Width 2 1.2 1.1 -Current Size (cm) - Depth 0.2 0.1 0.1 -Total Square Cm 3.0 1.2 0.99 -Date of Last Picture (Recall this 01/24/25 01/31/25 02/07/25 field) -Photo Taken Yes -Epithelialization Small 1-33% -Tunneling No -Undermining/Tunneling No -Circular Undermining No -Exudate Amt Small Medium -Exudate Type Serosanguineous Serosanguineous -Wound Margin Distinct, Distinct, Outline Outline Attached Attached -Granulation Amt Large (67-100%) Large (67-100%) Large (67-100%) -Granulation Quality [place],Red Red Red -Slough/Fibrin Yes -Necrosis Amt Small (1-33%) Small (1-33%) -Necrotic Tissue Type Adherent Slough Adherent Slough -Texture (Fadumo-wound Skin Appearance) Assessed Assessed Assessed, Scarring -Moisture (Fadumo-wound Skin Appearance) Assessed Assessed Assessed -Color (Fadumo-wound Skin Appearance) Assessed Assessed Assessed -Temperature (Fadumo-wound Skin No Abnormality No Abnormality No Abnormality Appearance) (Pt Warm) (Pt Warm) (Pt Warm) -Tenderness on Palpation (Fadumo-wound No No No Skin Appearance) -Ulcer Cleansing Soap and Water Rinsed/ Rinsed/ Irrigated with Irrigated with Saline Saline -Foul Odor after Cleansing No No No -Anesthetic Used 5% Lidocaine 5% Lidocaine 5% Lidocaine Gel Gel Gel WC - Nurse 2 - General Ulcer CM Notes Start: 01/24/25 13:13 Freq: Status: Active Protocol: Activity Type Activity Date Activity User E-sign Co-sign Detail Recorded Client Recorded Date Recorded By Document 01/24/25 13:37 DS [id number] 01/24/25 13:40 DS Document 01/31/25 14:41 DS [id number] 01/31/25 14:42 DS Document 02/07/25 15:11 DS [id number] 02/07/25 15:12 DS 01/24/25 01/31/25 02/07/25 13:37 14:41 15:11 Wound Center Nurse 2 #6 LT BUTTOCK/ISCHIAL -Time 13:37 14:41 15:11 -Correct Patient Yes Yes Yes -Correct Side, Site, Position Yes Yes Yes -Correct Procedure Yes Yes Yes -Procedure Performed Yes Yes Yes -Type of Procedure Debridement Debridement Debridement -Clinical Debridement Subcutaneous Subcutaneous Subcutaneous -Tissue Removed Subcutaneous Subcutaneous Subcutaneous -Post Debridement (cm) - Length 1.6 1.2 1.0 -Post Debridement (cm) - Width 2.0 1.5 1.1 -Post Debridement (cm) - Depth 0.3 0.1 0.1 -Total Square (Post) (cm) 3.20 1.80 1.10 -Area of Debridement (cm) - Length 1.6 1.2 1.0 -Area of Debridement (cm) - Width 2.0 1.5 1.1 -Total Square (Area) (cm) 3.20 1.80 1.10 -Tunneling No No No -Undermining/Tunneling No No No -Circular Undermining No No No -Wound/Ulcer Outcome Not Healed Not Healed Not Healed -Ulcer Cleansing gauze gauze -Foul Odor after Cleansing No No No -Bioengineered Tissue No No No -Bleeding Controlled with Pressure Pressure Pressure -Treatment Response Procedure Procedure Procedure Tolerated Well Tolerated Well Tolerated Well -Debridement - Subq, 1st 20sq cm Yes Yes Yes Pain Scale: 0-10 Numeric Is Patient Pain Free? Yes Yes Yes WC - Nurse 3 - General Ulcer D/C NN Start: 01/24/25 13:13 Freq: Status: Active Protocol: Activity Type Activity Date Activity User E-sign Co-sign Detail Recorded Client Recorded Date Recorded By Document 01/24/25 13:48 BMF [id number] 01/24/25 13:49 [facility] Document 01/31/25 15:00 [facility] [id number] 01/31/25 15:03 [facility] Document 02/07/25 15:23 [facility] [id number] 02/07/25 15:24 [facility] 01/24/25 01/31/25 02/07/25 13:48 15:00 15:23 Wound Care Center Nurse 3 #6 LT BUTTOCK/ISCHIAL -Ulcer Cleansing Rinsed/ Rinsed/ Rinsed/ Irrigated with Irrigated with Irrigated with Saline Saline Saline -Foul Odor after Cleansing No No No -Primary Dressing Applied AMD Dressing Silicone Border Silicone Border 4x4,C Hydrogel, Foam 4x4 Foam 4x4 Silicone Border Foam 4x4 -Other Dressing drsg per jf rn hydrogel hydrogel -Primary Dressing Covered/Secured with Dry Gauze -AMD Dressing 4x4 1 -Hydrogel 1 -Silicone Border Foam 4x4 1 1 1 Treatment Response Procedure Procedure Tolerated Well Tolerated Well Pain Scale: 0-10 Numeric Is Patient Pain Free? Yes Yes Yes WC - Visit Discharge Discharge Condition Stable Stable Stable Ambulatory Status Wheelchair Wheelchair Wheelchair Transportation Private Auto Private Auto Private Auto Accompanied by Charges/Coding Procedures Integumentary [id number]: [id number] Padmini subq tissue 20 sq cm/< Assessment/Plan Assessment/Plan (1) Pressure ulcer of ischium, stage 3: CODE(S): L89.303 - Pressure ulcer of unspecified buttock, stage 3 QUALIFIERS: Laterality: left Qualified Code(s): L89.323 - Pressure ulcer of left buttock, stage 3 (2) Diabetes mellitus, type 2: CODE(S): E11.9 - Type 2 diabetes mellitus without complications QUALIFIERS: Diabetes mellitus terminal press operator insulin use: with [facility] use Diabetes mellitus complication status: with hyperglycemia Qualified Code(s): E11.65 - Type 2 diabetes mellitus with hyperglycemia; Z79.4 - MCFP (current) use of insulin (3) Morbid obesity with BMI of 50.0-59.9, adult: CODE(S): E66.01 - Morbid (severe) obesity due to excess calories; Z68.43 - Body mass index [BMI] 50.0-59.9, adult (4) Benign essential HTN: CODE(S): I10 - Essential (primary) hypertension (5) Hyperlipidemia: CODE(S): E78.5 - Hyperlipidemia, unspecified QUALIFIERS: Hyperlipidemia type: mixed hyperlipidemia Qualified Code(s): E78.2 - Mixed hyperlipidemia (6) Pulmonary hypertension: CODE(S): I27.20 - Pulmonary hypertension, unspecified (7) Chronic renal failure, stage 3 (moderate): CODE(S): N18.30 - Chronic kidney disease, stage 3 unspecified QUALIFIERS: Chronic kidney disease stage 3 subtype: unspecified whether 3a or 3b Qualified Code(s): N18.30 - Chronic kidney disease, stage 3 unspecified (8) Obesity: CODE(S): E66.9 - Obesity, unspecified QUALIFIERS: Obesity type: due to excess calories Obesity classification: adult class 3 (BMI >= 40) Serious obesity comorbidity presence: with serious comorbidity Body mass index: unspecified BMI Qualified Code(s): E66.01 - Morbid (severe) obesity due to excess calories (9) Melanoma in situ: CODE(S): D03.9 - Melanoma in situ, unspecified (10) Below knee amputation: CODE(S): S88.119A - 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, unspecified lower leg, initial encounter QUALIFIERS: Encounter type: subsequent encounter Laterality: right Qualified Code(s): S88.111D - 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, right lower leg, subsequent encounter (11) Hypothyroid: CODE(S): E03.9 - Hypothyroidism, unspecified QUALIFIERS: Hypothyroidism type: acquired Qualified Code(s): E03.9 - Hypothyroidism, unspecified (12) Hyperlipidemia: CODE(S): E78.5 - Hyperlipidemia, unspecified QUALIFIERS: Hyperlipidemia type: mixed hyperlipidemia Qualified Code(s): E78.2 - Mixed hyperlipidemia (13) Status post right mastectomy: CODE(S): Z90.11 - Acquired absence of right breast and nipple (14) Hx of cholecystectomy: CODE(S): Z98.890 - Other specified postprocedural states; Z90.49 - Acquired absence of other specified parts of digestive tract (15) History of tonsillectomy: CODE(S): Z90.89 - Acquired absence of other organs (16) History of carpal tunnel release: CODE(S): Z98.890 - Other specified postprocedural states (17) History of cardiac radiofrequency ablation: CODE(S): Z98.890 - Other specified postprocedural states (18) History of total abdominal hysterectomy and bilateral salpingo-oophorectomy: CODE(S): Z90.710 - Acquired absence of both cervix and uterus; Z90.722 - Acquired absence of ovaries, bilateral; Z90.79 - Acquired absence of other genital organ(s) (19) History of below-knee amputation: CODE(S): Z89.519 - Acquired absence of unspecified leg below knee QUALIFIERS: Laterality: right Qualified Code(s): Z89.511 - Acquired absence of right leg below knee (20) Diabetic neuropathy: CODE(S): E11.40 - Type 2 diabetes mellitus with diabetic neuropathy, unspecified QUALIFIERS: Diabetes mellitus type: type 2 Diabetes mellitus complication detail: diabetic polyneuropathy Qualified Code(s): E11.42 - Type 2 diabetes mellitus with diabetic polyneuropathy (21) BRITT (obstructive sleep apnea): CODE(S): G47.33 - Obstructive sleep apnea (adult) (pediatric) (22) History of endometrial cancer: CODE(S): Z85.42 - Personal history of malignant neoplasm of other parts of uterus (23) Rheumatoid arthritis: CODE(S): M06.9 - Rheumatoid arthritis, unspecified (24) Diverticulosis: CODE(S): K57.90 - Diverticulosis of intestine, part unspecified, without perforation or abscess without bleeding (25) GERD (gastroesophageal reflux disease): CODE(S): K21.9 - Gastro-esophageal reflux disease without esophagitis (26) History of kidney stones: CODE(S): Z87.442 - Personal history of urinary calculi (27) Hx of supraventricular tachycardia: CODE(S): Z86.79 - Personal history of other diseases of the circulatory system PLAN: Plan This is a 64-year-old obese, diabetic female who presented with an abscess on her left buttock, which now manifests as a stage III pressure ulceration. Offloading measures have been discussed with the patient in detail. She and her appear to understand the recommendations. She is currently wheelchair-bound, due to a prior right below-knee amputation, although she is destined to be fitted with a right lower extremity prosthesis in the near future. Efforts to obtain a Roho cushion for the patient's wheelchair are underway for offloading purposes. We are to continue the use of collagen hydrogel and a Isak AMD foam dressing with PHMB, which will be applied topically on a daily basis. The patient and her have been instructed in the appropriate means of application. The patient has been advised to optimize her nutritional intake, as well as her glycemic control. The patient is return in 1 week for reevaluation. Total time: 25 minutes
[2025-02-14 15:03] VITALS: BP 168/65; PULSE 100; RESP 18; TEMP 36.8; BMI 56.5
--- NOTE | 2025-02-15 10:22 | WC ---
PHOTO - LEFT ISCHIAL 02-14-25
--- NOTE | 2025-02-16 14:46 | PCM.WC.HP ---
History of Present Illness Date of Service: 02/14/25 Chief Complaint: Perirectal abscess History of Wound: This is a 64-year-old morbidly obese diabetic female with multiple pre-existing medical conditions. She was recently cared for at the [facility] for a surgical wound dehiscence of her right below-knee amputation stump incision. She was also treated for second-degree lyon of the lower abdomen. After many months of treatment, she subsequently healed, and was last seen at the Wound Center and discharged on November 08, 2024. The patient returned on December 28, 2024, with an abscess on the left ischium. According to the patient, the problem began approximately 8 days prior to her presentation, at which time she noted some bloody drainage at the site. She experienced increasing pain and discomfort in the area, and began to note the presence of brown, purulent drainage. She denied using a Roho or gel cushion for sitting in her wheelchair, although she has been wheelchair-bound for many months due to the dehiscence of her right below-knee amputation stump incision. The patient had been prescribed doxycycline orally by a provider at the [facility]. The left ischial abscess was incised and drained at the patient's Wound Center visit on December 28, 2024, with arrangements for the abscess cavity to be packed with moistened 1/4 inch Nu Gauze on a daily basis. The patient returned to the Wound Center for ongoing definitive management of the abscess site, which had improved significantly since the initial incision and drainage. The patient indicated that she is anticipating the fitting of a prosthesis in the near future, and is collaborating with [employer] towards this objective. The patient is known to be a diabetic, and has had some difficulties with regulation. The patient underwent a right mastectomy with sentinel lymph node biopsy by Dr. Knapp on March 15, 2024. [facility] Medical History Pressure ulcer of ischium, stage 3 Gout History of renal disease Low iron Gastric reflux Hypertension Non-pressure chronic ulcer of right lower leg with fat layer exposed Burn of trunk, second degree Dehiscence of incision GERD (gastroesophageal reflux disease) Hyperlipidemia Tinea cruris Non-pressure chronic ulcer of right calf with fat layer exposed Wears glasses Post-menopausal Cancer Anxiety Open wound Thyroid disease Insulin dependent diabetes mellitus Uses wheelchair Fatty liver High cholesterol Dietary restriction Non-smoker History of edema History of echocardiogram History of stress test Cardiology follow-up encounter Invasive ductal carcinoma of right breast in female Surgical wound dehiscence Right leg swelling History of endometrial cancer Rheumatoid arthritis Diverticulosis Chronic renal failure, stage 3 (moderate) Pulmonary hypertension GERD (gastroesophageal reflux disease) Hyperlipidemia History of kidney stones Breast cancer in female Morbid obesity with BMI of 50.0-59.9, adult Hydronephrosis Ureteral calculus Charcot ankle Diabetic neuropathy Morbid obesity with BMI of 50.0-59.9, adult Diverticulosis Diabetes mellitus, type 2 Chronic renal failure (CRF), stage 3a Anemia Rheumatoid arthritis Chronic pain CPAP (continuous positive airway pressure) dependence Pulmonary hypertension BRITT (obstructive sleep apnea) Thyromegaly Hx of supraventricular tachycardia Nephrolithiasis Rosacea Fatty liver External hemorrhoid GERD without esophagitis Benign essential HTN Bilateral carpal tunnel syndrome Hyperlipidemia Low vitamin B12 level Multinodular goiter Tubular adenoma Adenocarcinoma of endometrium Home Medications Medication Instructions Recorded Last Taken Type cetirizine 10 mg capsule 10 mg PO DAILY Allergies 01/11/16 11/15/24 History metoprolol succinate 100 mg 100 mg PO DAILY BP 01/11/16 11/16/24 History tablet,extended release 24 hr multivitamin 1 ea PO DAILY Supplement 01/11/16 11/15/24 History omeprazole 40 mg capsule,delayed 40 mg PO DAILY GERD 01/11/16 11/16/24 History release simvastatin 20 mg tablet 20 mg PO QHS Cholestrol 01/11/16 11/15/24 History cyanocobalamin (vitamin B-12) 1,000 mcg PO DAILY Supplement 07/02/17 11/15/24 History 1,000 mcg sublingual tablet pregabalin 150 mg capsule (Lyrica) 150 mg PO TID NERVE PAIN 06/14/18 11/15/24 History ferrous sulfate 325 mg (65 mg 325 mg PO DAILY supplement 04/25/20 11/15/24 History iron) tablet (Feosol) allopurinol 100 mg tablet 100 mg PO DAILY #30 tabs 11/18/23 11/15/24 Rx ascorbic acid (vitamin C) 500 mg 1,000 mg (2 x 500 mg) PO DAILY #30 11/18/23 11/15/24 Rx tablet tabs calcium carbonate (Oyster Shell 500 mg PO BREAKFAST #30 tabs 11/18/23 11/15/24 Rx Calcium 500) blood sugar diagnostic (OneTouch #100 ea 12/03/23 Unknown Rx Ultra Test strips) OneTouch Delica Plus Lancet 33 #100 ea 12/04/23 Unknown Rx gauge (lancets) buspirone 5 mg tablet 5 mg PO TID #90 tabs 12/11/23 11/15/24 Rx fiber 1 cap PO DAILY 12/25/23 11/15/24 History anastrozole 1 mg tablet (Arimidex) 1 mg PO DAILY #90 tabs 02/24/24 11/15/24 Rx insulin lispro 100 unit/mL See Protocol subcut DAILY PRN 03/15/24 03/13/24 History subcutaneous pen elevated BS pen needle, diabetic 31 gauge x #300 ea 05/19/24 Unknown Rx 12/09" (1st Tier Unifine Pentips) blood-glucose sensor (Dexcom G6 #9 ea 05/30/24 Unknown Rx Sensor device) blood-glucose transmitter (Dexcom #1 ea 05/30/24 Unknown Rx G6 Transmitter device) aripiprazole 2 mg tablet 2 mg PO QDAY 06/21/24 Unknown History aspirin 81 mg tablet,delayed 81 mg PO QDAY 06/21/24 11/15/24 History release (Adult Low Dose Aspirin) blood-glucose sensor (Dexcom G6 #9 ea 06/21/24 Unknown Rx Sensor device) cholecalciferol (vitamin D3) 125 125 mcg PO QDAY 06/21/24 11/15/24 History mcg (5,000 unit) capsule escitalopram oxalate 10 mg tablet See Rx Instructions PO DAILY 06/21/24 11/15/24 History sennosides 8.6 mg tablet 8.6 mg PO QDAY 06/21/24 11/15/24 History insulin regular hum U-500 conc 500 See Rx Instructions subcut QHS 11/04/24 11/15/24 History unit/mL(3 mL) subcut pen (Humulin R U-500 (Conc) Insulin Kwikpen) levothyroxine 300 mcg tablet 300 mcg PO MOTUWETHFRSA #90 tabs 12/05/24 Unknown Rx insulin lispro 100 unit/mL 20 unit (0.2 mL) subcut TID PRN 12/09/24 Unknown Rx subcutaneous pen BLOOD SUGARS #60 mL tirzepatide 12.5 mg/0.5 mL 12.5 mg (0.5 mL) subcut QWEEK #6 mL 12/27/24 Unknown Rx subcutaneous pen injector (Mounjaro) losartan 50 mg tablet (Cozaar) 50 mg PO DAILY #90 tabs 02/08/25 Unknown Rx Allergy/AdvReac Type Severity Reaction Status Date / Time No Known Allergies Allergy Verified 02/07/25 14:00 Family History Mother Ovarian cancer Hypertension Arthritis Uterine cancer Fibrocystic disease of breast Hypothyroid Father , Age 86-CHF Hypertension Arthritis Diverticulitis of colon Depression CAD (coronary artery disease) Sister Hypertension Depression CVA (cerebral vascular accident) Fibrocystic disease of breast Diabetes Bleeding disorder Portal hypertension Surgical History History of lithotripsy History of right mastectomy Status post right mastectomy History of cardiac catheterization Hx of cystoscopy Hx of total thyroidectomy History of tonsillectomy History of carpal tunnel release History of cardiac radiofrequency ablation History of total abdominal hysterectomy and bilateral salpingo-oophorectomy History of below-knee amputation S/P cystoscopy with ureteral stent placement History of right below knee amputation History of hand surgery H/O cardiac radiofrequency ablation (02/15/13) History of right and left heart catheterization (07/03/17) H/O colonoscopy H/O abdominal hysterectomy H/O carpal tunnel repair Previous section History of tonsillectomy Hx of cholecystectomy Surgical menopause Social History Smoking Status: Never smoker second hand exposure: No alcohol intake: never substance use type: does not use caffeine: No Vital Signs Vital Signs Vital Signs: Weight Weight: 350 lb Body Mass Index (BMI) 56.5 Physical Exam Narrative ECOG 2, seen in a wheelchair Const alert, oriented x3, no apparent distress, no limitations, healthy appearing and well nourished Constitutional Narrative: The patient is morbidly obese. Her BMI is 56.5. General Appearance: cooperative, comfortable, well kempt and well developed Orientation / Consciousness: awake, oriented to person, oriented to place and oriented to time Exam Limitations: no limitations Nutritional Appearance: overweight and morbidly obese HEENT normocephalic and head/scalp atraumatic Head and Scalp: normal to inspection, normocephalic and atraumatic Face and Sinus: normal facial exam Nose: external nose normal External Ear: external ears normal Eyes EOMs intact bilaterally General Eye: normal appearance of both eyes Neck full ROM Resp normal respiratory effort, normal air movement, no retractions and no use of accessory muscles Effort and Inspection: able to speak in complete sentences Cardio Jugular Venous Distention: Negative for JVD Extremity Extremity Narrative: Right lower extremity below-knee amputation is noted. Skin Wound Narrative: An ulceration is noted on the patient's left ischium/buttock. The base of the ulceration is generally pink and healthy in appearance, with a small amount of bioburden. There is no sign of infection or cellulitis. Ulcer margins are well beveled. Dimensions are documented elsewhere. There is evidence of peripheral epithelialization, resulting in a decrease in the dimensions of the patient's ulceration. The ulceration extends through all layers of the dermis and into the subcutaneous tissues, representing a stage III pressure ulceration. Neuro oriented x3, CN's II-XII intact bilaterally, moves all extremities, no focal motor deficits and no sensory deficits noted Sensorium / Orientation: awake, alert, oriented to person, oriented to place and oriented to time Speech: speech normal Gait (Neuro): unable to assess gait Psych mental status grossly normal Debridement Note Debridement Note Wound debrided: Left ischial pressure ulceration Laterality: Left Wound Grade/Stage: Stage III Type of Debridement: Excisional debridement Anesthesia Used: 5% Lidocaine Gel Depth: Down to and including healthy tissue and in the subcutaneous layer Percentage of wound debrided: 100 Instrument Used: 5mm curette Tissue Removed: Bioburden Severity: Fat Layer Exposed Amount of bleeding with debridement: Mild Bleeding Controlled with: Compression and gauze Patient tolerated procedure: Patient tolerated procedure well Post-Debridement Measurements and Additional Note: Post-Debridement Measurements/Treatment JIA - Nurse 1 - General Ulcer Assessment Start: 01/24/25 13:13 Freq: Status: Active Protocol: MATT Activity Type Activity Date Activity User E-sign Co-sign Detail Recorded Client Recorded Date Recorded By Document 01/24/25 13:13 KW [id number] 01/24/25 13:14 KW Edit Result 01/24/25 13:13 KW (1) [id number] 01/24/25 13:15 KW Document 01/31/25 14:13 KW [id number] 01/31/25 14:20 KW Document 02/07/25 14:36 BMF [id number] 02/07/25 14:43 BMF Document 02/14/25 15:03 KW [id number] 02/14/25 15:07 KW (1) Height => 5 ft 6 in Weight => 350 lb Weight in Pounds => 350.0 lbs Body Mass Index (BMI) => 56.5 BMI Classification => Obese 01/24/25 01/31/25 02/07/25 13:13 14:13 14:36 WC - Today's Visit Information Type of service Initial Visit Follow-up Visit Follow-up Visit (Physician/COMMUNITY RESOURCE CONSULTANT (Physician/COMMUNITY RESOURCE CONSULTANT ) ) Arrival Mode Wheelchair Wheelchair Wheelchair Transfer Assistance Other Transfer Assist (Other) 1 Accompanied by Patient Identification Verified (Name & Yes Yes Yes ) Patient Requires Transmission-Based No Precautions Height and Weight Height 5 ft 6 in Weight 350 lb Weight in Pounds 350.0 lbs Body Mass Index (BMI) 56.5 56.5 56.5 BMI Classification Obese Obese Obese Vital Signs Temperature (97.8 F-99.1 F) 97.9 F 97.4 F L 98 F Temperature Source Temporal Temporal Temporal Pulse Rate (60-100) 84 86 83 Pulse Location Monitor Monitor Monitor Respiratory Rate (12-18) 18 18 16 Respiratory rate source Observation Observation Observation Oxygen Delivery Method Room Air Room Air Room Air Blood Pressure (90/60-120/80) 183/83 H 143/82 H 130/40 H Blood Pressure Mean 116 102 70 Source Monitor Monitor Monitor Position Sitting Sitting Sitting Blood Pressure Location Right Arm Left Forearm Right Arm History Since Last Visit- (Skip if this is Patient's initial visit) Have you changed medications since your No No last visit? Any new allergies or adverse reactions No No Had a fall/change in ADL's that may No No increase risk of falls Signs or symptoms of abuse and/or No No neglect since last visit Have you been in the hospital since your No No last visit? Has dressing in place as prescribed Yes Yes Has compression in place as prescribed N/A N/A Has offloadiing in place as prescribed N/A N/A Experienced any changes in pain level or No No management Left Footwear Regular Shoe Regular Shoe Regular Shoe Right Footwear No Footwear No Footwear Regular Shoe Pain Scale: 0-10 Numeric Is Patient Pain Free? Yes Yes Yes 02/14/25 15:03 WC - Today's Visit Information Type of service Follow-up Visit (Physician/COMMUNITY RESOURCE CONSULTANT ) Arrival Mode Wheelchair Transfer Assistance Transfer Assist (Other) Accompanied by Patient Identification Verified (Name & Yes ) Patient Requires Transmission-Based Precautions Height and Weight Height Weight Weight in Pounds Body Mass Index (BMI) 56.5 BMI Classification Obese Vital Signs Temperature (97.8 F-99.1 F) 98.3 F Temperature Source Temporal Pulse Rate (60-100) 100 Pulse Location Monitor Respiratory Rate (12-18) 18 Respiratory rate source Observation Oxygen Delivery Method Room Air Blood Pressure (90/60-120/80) 168/65 H Blood Pressure Mean 99 Source Monitor Position Sitting Blood Pressure Location Left Forearm History Since Last Visit- (Skip if this is Patient's initial visit) Have you changed medications since your No last visit? Any new allergies or adverse reactions No Had a fall/change in ADL's that may No increase risk of falls Signs or symptoms of abuse and/or No neglect since last visit Have you been in the hospital since your No last visit? Has dressing in place as prescribed Yes Has compression in place as prescribed N/A Has offloadiing in place as prescribed N/A Experienced any changes in pain level or No management Left Footwear Regular Shoe Right Footwear Pain Scale: 0-10 Numeric Is Patient Pain Free? Yes - Nurse 1 - General Ulcer Measurement Start: 01/24/25 13:13 Freq: Status: Active Protocol: Activity Type Activity Date Activity User E-sign Co-sign Detail Recorded Client Recorded Date Recorded By Document 01/24/25 13:13 KW [id number] 01/24/25 13:14 KW Document 01/31/25 14:13 KW [id number] 01/31/25 14:20 KW Document 02/07/25 14:36 [facility] [id number] 02/07/25 14:43 BM Document 02/14/25 15:03 KW [id number] 02/14/25 15:07 KW 01/24/25 01/31/25 02/07/25 13:13 14:13 14:36 Wound Center Nurse 1 #6 LT BUTTOCK/ISCHIAL -Combined with other wound No -Current Size (cm) - Length 1.5 1 0.9 -Current Size (cm) - Width 2 1.2 1.1 -Current Size (cm) - Depth 0.2 0.1 0.1 -Total Square Cm 3.0 1.2 0.99 -Date of Last Picture (Recall this 01/24/25 01/31/25 02/07/25 field) -Photo Taken Yes -Epithelialization Small 1-33% -Tunneling No -Undermining/Tunneling No -Circular Undermining No -Exudate Amt Small Medium -Exudate Type Serosanguineous Serosanguineous -Wound Margin Distinct, Distinct, Outline Outline Attached Attached -Granulation Amt Large (67-100%) Large (67-100%) Large (67-100%) -Granulation Quality [place],Red Red Red -Slough/Fibrin Yes -Necrosis Amt Small (1-33%) Small (1-33%) -Necrotic Tissue Type Adherent Slough Adherent Slough -Texture (Fadumo-wound Skin Appearance) Assessed Assessed Assessed, Scarring -Moisture (Fadumo-wound Skin Appearance) Assessed Assessed Assessed -Color (Fadumo-wound Skin Appearance) Assessed Assessed Assessed -Temperature (Fadumo-wound Skin No Abnormality No Abnormality No Abnormality Appearance) (Pt Warm) (Pt Warm) (Pt Warm) -Tenderness on Palpation (Fadumo-wound No No No Skin Appearance) -Ulcer Cleansing Soap and Water Rinsed/ Rinsed/ Irrigated with Irrigated with Saline Saline -Foul Odor after Cleansing No No No -Anesthetic Used 5% Lidocaine 5% Lidocaine 5% Lidocaine Gel Gel Gel 02/14/25 15:03 Wound Center Nurse 1 #6 LT BUTTOCK/ISCHIAL -Combined with other wound No -Current Size (cm) - Length 0.5 -Current Size (cm) - Width 0.7 -Current Size (cm) - Depth 0.1 -Total Square Cm 0.35 -Date of Last Picture (Recall this 02/14/25 field) -Photo Taken Yes -Epithelialization Small 1-33% -Tunneling No -Undermining/Tunneling No -Circular Undermining No -Exudate Amt Medium -Exudate Type Serosanguineous -Wound Margin Distinct, Outline Attached -Granulation Amt Large (67-100%) -Granulation Quality [place] -Slough/Fibrin Yes -Necrosis Amt Small (1-33%) -Necrotic Tissue Type Adherent Slough -Texture (Fadumo-wound Skin Appearance) Assessed, Scarring -Moisture (Fadumo-wound Skin Appearance) Assessed,Dry/ Scaly -Color (Fadumo-wound Skin Appearance) Assessed -Temperature (Fadumo-wound Skin No Abnormality Appearance) (Pt Warm) -Tenderness on Palpation (Fadumo-wound No Skin Appearance) -Ulcer Cleansing Rinsed/ Irrigated with Saline -Foul Odor after Cleansing No -Anesthetic Used 5% Lidocaine Gel WC - Nurse 2 - General Ulcer CM Notes Start: 01/24/25 13:13 Freq: Status: Active Protocol: Activity Type Activity Date Activity User E-sign Co-sign Detail Recorded Client Recorded Date Recorded By Document 01/24/25 13:37 DS [id number] 01/24/25 13:40 DS Document 01/31/25 14:41 DS [id number] 01/31/25 14:42 DS Document 02/07/25 15:11 DS [id number] 02/07/25 15:12 DS Document 02/14/25 15:45 DS [id number] 02/14/25 15:47 DS 01/24/25 01/31/25 02/07/25 13:37 14:41 15:11 Wound Center Nurse 2 #6 LT BUTTOCK/ISCHIAL -Time 13:37 14:41 15:11 -Correct Patient Yes Yes Yes -Correct Side, Site, Position Yes Yes Yes -Correct Procedure Yes Yes Yes -Procedure Performed Yes Yes Yes -Type of Procedure Debridement Debridement Debridement -Clinical Debridement Subcutaneous Subcutaneous Subcutaneous -Tissue Removed Subcutaneous Subcutaneous Subcutaneous -Post Debridement (cm) - Length 1.6 1.2 1.0 -Post Debridement (cm) - Width 2.0 1.5 1.1 -Post Debridement (cm) - Depth 0.3 0.1 0.1 -Total Square (Post) (cm) 3.20 1.80 1.10 -Area of Debridement (cm) - Length 1.6 1.2 1.0 -Area of Debridement (cm) - Width 2.0 1.5 1.1 -Total Square (Area) (cm) 3.20 1.80 1.10 -Tunneling No No No -Undermining/Tunneling No No No -Circular Undermining No No No -Wound/Ulcer Outcome Not Healed Not Healed Not Healed -Ulcer Cleansing gauze gauze -Foul Odor after Cleansing No No No -Bioengineered Tissue No No No -Bleeding Controlled with Pressure Pressure Pressure -Treatment Response Procedure Procedure Procedure Tolerated Well Tolerated Well Tolerated Well -Debridement - Subq, 1st 20sq cm Yes Yes Yes Pain Scale: 0-10 Numeric Is Patient Pain Free? Yes Yes Yes 02/14/25 15:45 Wound Center Nurse 2 #6 LT BUTTOCK/ISCHIAL -Time 15:45 -Correct Patient Yes -Correct Side, Site, Position Yes -Correct Procedure Yes -Procedure Performed Yes -Type of Procedure Debridement -Clinical Debridement Subcutaneous -Tissue Removed Subcutaneous -Post Debridement (cm) - Length 0.6 -Post Debridement (cm) - Width 0.5 -Post Debridement (cm) - Depth 0.1 -Total Square (Post) (cm) 0.30 -Area of Debridement (cm) - Length 0.6 -Area of Debridement (cm) - Width 0.5 -Total Square (Area) (cm) 0.30 -Tunneling No -Undermining/Tunneling No -Circular Undermining No -Wound/Ulcer Outcome Not Healed -Ulcer Cleansing -Foul Odor after Cleansing No -Bioengineered Tissue No -Bleeding Controlled with Pressure -Treatment Response -Debridement - Subq, 1st 20sq cm Yes Pain Scale: 0-10 Numeric Is Patient Pain Free? Yes - Nurse 3 - General Ulcer D/C NN Start: 01/24/25 13:13 Freq: Status: Active Protocol: Activity Type Activity Date Activity User E-sign Co-sign Detail Recorded Client Recorded Date Recorded By Document 01/24/25 13:48 [facility] [id number] 01/24/25 13:49 [facility] Document 01/31/25 15:00 [facility] [id number] 01/31/25 15:03 [facility] Document 02/07/25 15:23 [facility] [id number] 02/07/25 15:24 [facility] Document 02/14/25 15:52 [id number] 02/14/25 15:53 01/24/25 01/31/25 02/07/25 13:48 15:00 15:23 Wound Care Center Nurse 3 #6 LT BUTTOCK/ISCHIAL -Ulcer Cleansing Rinsed/ Rinsed/ Rinsed/ Irrigated with Irrigated with Irrigated with Saline Saline Saline -Foul Odor after Cleansing No No No -Primary Dressing Applied AMD Dressing Silicone Border Silicone Border 4x4,C Hydrogel, Foam 4x4 Foam 4x4 Silicone Border Foam 4x4 -Other Dressing drsg per jf rn hydrogel hydrogel -Primary Dressing Covered/Secured with Dry Gauze -AMD Dressing 4x4 1 -Hydrogel 1 -Silicone Border Foam 4x4 1 1 1 Treatment Response Procedure Procedure Tolerated Well Tolerated Well Pain Scale: 0-10 Numeric Is Patient Pain Free? Yes Yes Yes WC - Visit Discharge Discharge Condition Stable Stable Stable Ambulatory Status Wheelchair Wheelchair Wheelchair Transportation Private Auto Private Auto Private Auto Accompanied by Medication Reconcilliation completed & provided to patient/care provider Clinical Summary of Care Provided 02/14/25 15:52 Wound Care Center Nurse 3 #6 LT BUTTOCK/ISCHIAL -Ulcer Cleansing -Foul Odor after Cleansing -Primary Dressing Applied AMD Dressing 4x4,Silicone Border Foam 4x4 -Other Dressing hydrogel -Primary Dressing Covered/Secured with -AMD Dressing 4x4 1 -Hydrogel -Silicone Border Foam 4x4 1 Treatment Response Pain Scale: 0-10 Numeric Is Patient Pain Free? Yes WC - Visit Discharge Discharge Condition Stable Ambulatory Status Wheelchair Transportation Private Auto Accompanied by Medication Reconcilliation completed & No provided to patient/care provider Clinical Summary of Care Provided Yes Charges/Coding Procedures Integumentary [id number]: [id number] Padmini subq tissue 20 sq cm/< Assessment/Plan Assessment/Plan (1) Pressure ulcer of ischium, stage 3: CODE(S): L89.303 - Pressure ulcer of unspecified buttock, stage 3 QUALIFIERS: Laterality: left Qualified Code(s): L89.323 - Pressure ulcer of left buttock, stage 3 (2) Diabetes mellitus, type 2: CODE(S): E11.9 - Type 2 diabetes mellitus without complications QUALIFIERS: Diabetes mellitus terminal 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 insulin use: with terminal 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 use Diabetes mellitus complication status: with hyperglycemia Qualified Code(s): E11.65 - Type 2 diabetes mellitus with hyperglycemia; Z79.4 - terminal carman (current) use of insulin (3) Morbid obesity with BMI of 50.0-59.9, adult: CODE(S): E66.01 - Morbid (severe) obesity due to excess calories; Z68.43 - Body mass index [BMI] 50.0-59.9, adult (4) Benign essential HTN: CODE(S): I10 - Essential (primary) hypertension (5) Hyperlipidemia: CODE(S): E78.5 - Hyperlipidemia, unspecified QUALIFIERS: Hyperlipidemia type: mixed hyperlipidemia Qualified Code(s): E78.2 - Mixed hyperlipidemia (6) Pulmonary hypertension: CODE(S): I27.20 - Pulmonary hypertension, unspecified (7) Chronic renal failure, stage 3 (moderate): CODE(S): N18.30 - Chronic kidney disease, stage 3 unspecified QUALIFIERS: Chronic kidney disease stage 3 subtype: unspecified whether 3a or 3b Qualified Code(s): N18.30 - Chronic kidney disease, stage 3 unspecified (8) Obesity: CODE(S): E66.9 - Obesity, unspecified QUALIFIERS: Obesity type: due to excess calories Obesity classification: adult class 3 (BMI >= 40) Serious obesity comorbidity presence: with serious comorbidity Body mass index: unspecified BMI Qualified Code(s): E66.01 - Morbid (severe) obesity due to excess calories (9) Melanoma in situ: CODE(S): D03.9 - Melanoma in situ, unspecified (10) Below knee amputation: CODE(S): S88.119A - 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, unspecified lower leg, initial encounter QUALIFIERS: Encounter type: subsequent encounter Laterality: right Qualified Code(s): S88.111D - 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, right lower leg, subsequent encounter (11) Hypothyroid: CODE(S): E03.9 - Hypothyroidism, unspecified QUALIFIERS: Hypothyroidism type: acquired Qualified Code(s): E03.9 - Hypothyroidism, unspecified (12) Hyperlipidemia: CODE(S): E78.5 - Hyperlipidemia, unspecified QUALIFIERS: Hyperlipidemia type: mixed hyperlipidemia Qualified Code(s): E78.2 - Mixed hyperlipidemia (13) Status post right mastectomy: CODE(S): Z90.11 - Acquired absence of right breast and nipple (14) Hx of cholecystectomy: CODE(S): Z98.890 - Other specified postprocedural states; Z90.49 - Acquired absence of other specified parts of digestive tract (15) History of tonsillectomy: CODE(S): Z90.89 - Acquired absence of other organs (16) History of carpal tunnel release: CODE(S): Z98.890 - Other specified postprocedural states (17) History of cardiac radiofrequency ablation: CODE(S): Z98.890 - Other specified postprocedural states (18) History of total abdominal hysterectomy and bilateral salpingo-oophorectomy: CODE(S): Z90.710 - Acquired absence of both cervix and uterus; Z90.722 - Acquired absence of ovaries, bilateral; Z90.79 - Acquired absence of other genital organ(s) (19) History of below-knee amputation: CODE(S): Z89.519 - Acquired absence of unspecified leg below knee QUALIFIERS: Laterality: right Qualified Code(s): Z89.511 - Acquired absence of right leg below knee (20) Diabetic neuropathy: CODE(S): E11.40 - Type 2 diabetes mellitus with diabetic neuropathy, unspecified QUALIFIERS: Diabetes mellitus type: type 2 Diabetes mellitus complication detail: diabetic polyneuropathy Qualified Code(s): E11.42 - Type 2 diabetes mellitus with diabetic polyneuropathy (21) BRITT (obstructive sleep apnea): CODE(S): G47.33 - Obstructive sleep apnea (adult) (pediatric) (22) History of endometrial cancer: CODE(S): Z85.42 - Personal history of malignant neoplasm of other parts of uterus (23) Rheumatoid arthritis: CODE(S): M06.9 - Rheumatoid arthritis, unspecified (24) Diverticulosis: CODE(S): K57.90 - Diverticulosis of intestine, part unspecified, without perforation or abscess without bleeding (25) GERD (gastroesophageal reflux disease): CODE(S): K21.9 - Gastro-esophageal reflux disease without esophagitis (26) History of kidney stones: CODE(S): Z87.442 - Personal history of urinary calculi (27) Hx of supraventricular tachycardia: CODE(S): Z86.79 - Personal history of other diseases of the circulatory system PLAN: Plan This is a 64-year-old obese, diabetic female who presented with an abscess on her left buttock, which now manifests as a stage III pressure ulceration. Offloading measures have been discussed with the patient in detail. She and her appear to understand the recommendations. She is currently wheelchair-bound, due to a prior right below-knee amputation, although she is destined to be fitted with a right lower extremity prosthesis in the near future. Efforts to obtain a Roho cushion for the patient's wheelchair are underway for offloading purposes. We are to continue the use of collagen hydrogel and a Isak AMD foam dressing with PHMB, which will be applied topically on a daily basis. The patient and her have been instructed in the appropriate means of application. The patient has been advised to optimize her nutritional intake, as well as her glycemic control. The patient is return in 2 weeks for reevaluation. Total time: 24 minutes
== END 2025-02-23 23:59 | disposition home or self-care (01) ==
LOC: WC 15:00
PROVIDERS: PCP Nurse Practitioner Family; Referring Provider Nurse Practitioner Family; Visit Provider Surgery
DX: L89.323 Pressure ulcer of left buttock, stage 3 (principal); M06.9 Rheumatoid arthritis, unspecified; Z89.511 Acquired absence of right leg below knee; I27.20 Pulmonary hypertension, unspecified; D03.9 Melanoma in situ, unspecified; Z68.43 Body mass index [BMI] 50.0-59.9, adult; E66.01 Morbid (severe) obesity due to excess calories; E11.65 Type 2 diabetes mellitus with hyperglycemia; Z79.4 Long term (current) use of insulin; E11.22 Type 2 diabetes mellitus with diabetic chronic kidney disease; E11.42 Type 2 diabetes mellitus with diabetic polyneuropathy; N18.30 Chronic kidney disease, stage 3 unspecified; Z90.11 Acquired absence of right breast and nipple; E78.2 Mixed hyperlipidemia; Z83.3 Family history of diabetes mellitus; E89.0 Postprocedural hypothyroidism; Z79.899 Other long term (current) drug therapy; K57.90 Diverticulosis of intestine, part unspecified, without perforation or abscess without bleeding; Z90.710 Acquired absence of both cervix and uterus; D64.9 Anemia, unspecified; G47.33 Obstructive sleep apnea (adult) (pediatric); K21.9 Gastro-esophageal reflux disease without esophagitis; Z82.49 Family history of ischemic heart disease and other diseases of the circulatory system; Z79.82 Long term (current) use of aspirin; I12.9 Hypertensive chronic kidney disease with stage 1 through stage 4 chronic kidney disease, or unspecified chronic kidney disease; Z79.811 Long term (current) use of aromatase inhibitors; M10.9 Gout, unspecified; Z90.722 Acquired absence of ovaries, bilateral; Z99.3 Dependence on wheelchair; S88.111D 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, right lower leg, subsequent encounter; Z87.442 Personal history of urinary calculi; Z86.79 Personal history of other diseases of the circulatory system
CPT/HCPCS: 11042; 99213; G0463

== ENCOUNTER 2025-02-28 08:37 | Outpatient (RCR) | payer OTHER, SELFPAY ==
[2025-02-28 14:40] VITALS: BP 167/62; PULSE 75; RESP 16; TEMP 36.2
--- NOTE | 2025-03-02 14:40 | PCM.WC.HP ---
History of Present Illness Date of Service: 02/28/25 Chief Complaint: Perirectal abscess History of Wound: This is a 64-year-old morbidly obese diabetic female with multiple pre-existing medical conditions. She was recently cared for at the [facility] for a surgical wound dehiscence of her right below-knee amputation stump incision. She was also treated for second-degree lyon of the lower abdomen. After many months of treatment, she subsequently healed, and was last seen at the [facility]ound Center and discharged on November 08, 2024. The patient returned on December 28, 2024, with an abscess on the left ischium. According to the patient, the problem began approximately 8 days prior to her presentation, at which time she noted some bloody drainage at the site. She experienced increasing pain and discomfort in the area, and began to note the presence of brown, purulent drainage. She denied using a Roho or gel cushion for sitting in her wheelchair, although she has been wheelchair-bound for many months due to the dehiscence of her right below-knee amputation stump incision. The patient had been prescribed doxycycline orally by a provider at the [facility]. The left ischial abscess was incised and drained at the patient's Wound [facility] visit on December 28, 2024, with arrangements for the abscess cavity to be packed with moistened 1/4 inch Nu Gauze on a daily basis. The patient returned to the Wound Center for ongoing definitive management of the abscess site, which had improved significantly since the initial incision and drainage. The patient indicated that she is anticipating the fitting of a prosthesis in the near future, and is collaborating with [employer] towards this objective. The patient is known to be a diabetic, and has had some difficulties with regulation. The patient underwent a right mastectomy with sentinel lymph node biopsy by Dr. Knapp on March 15, 2024. [facility] Medical History Pressure ulcer of ischium, stage 3 Gout History of renal disease Low iron Gastric reflux Hypertension Non-pressure chronic ulcer of right lower leg with fat layer exposed Burn of trunk, second degree Dehiscence of incision GERD (gastroesophageal reflux disease) Hyperlipidemia Tinea cruris Non-pressure chronic ulcer of right calf with fat layer exposed Wears glasses Post-menopausal Cancer Anxiety Open wound Thyroid disease Insulin dependent diabetes mellitus Uses wheelchair Fatty liver High cholesterol Dietary restriction Non-smoker History of edema History of echocardiogram History of stress test Cardiology follow-up encounter Invasive ductal carcinoma of right breast in female Surgical wound dehiscence Right leg swelling History of endometrial cancer Rheumatoid arthritis Diverticulosis Chronic renal failure, stage 3 (moderate) Pulmonary hypertension GERD (gastroesophageal reflux disease) Hyperlipidemia History of kidney stones Breast cancer in female Morbid obesity with BMI of 50.0-59.9, adult Hydronephrosis Ureteral calculus Charcot ankle Diabetic neuropathy Morbid obesity with BMI of 50.0-59.9, adult Diverticulosis Diabetes mellitus, type 2 Chronic renal failure (CRF), stage 3a Anemia Rheumatoid arthritis Chronic pain CPAP (continuous positive airway pressure) dependence Pulmonary hypertension BRITT (obstructive sleep apnea) Thyromegaly Hx of supraventricular tachycardia Nephrolithiasis Rosacea Fatty liver External hemorrhoid GERD without esophagitis Benign essential HTN Bilateral carpal tunnel syndrome Hyperlipidemia Low vitamin B12 level Multinodular goiter Tubular adenoma Adenocarcinoma of endometrium Home Medications Medication Instructions Recorded Last Taken Type cetirizine 10 mg capsule 10 mg PO DAILY Allergies 01/11/16 11/15/24 History metoprolol succinate 100 mg 100 mg PO DAILY BP 01/11/16 11/16/24 History tablet,extended release 24 hr multivitamin 1 ea PO DAILY Supplement 01/11/16 11/15/24 History omeprazole 40 mg capsule,delayed 40 mg PO DAILY GERD 01/11/16 11/16/24 History release simvastatin 20 mg tablet 20 mg PO QHS Cholestrol 01/11/16 11/15/24 History cyanocobalamin (vitamin B-12) 1,000 mcg PO DAILY Supplement 07/02/17 11/15/24 History 1,000 mcg sublingual tablet pregabalin 150 mg capsule (Lyrica) 150 mg PO TID NERVE PAIN 06/14/18 11/15/24 History ferrous sulfate 325 mg (65 mg 325 mg PO DAILY supplement 04/25/20 11/15/24 History iron) tablet (Feosol) allopurinol 100 mg tablet 100 mg PO DAILY #30 tabs 11/18/23 11/15/24 Rx ascorbic acid (vitamin C) 500 mg 1,000 mg (2 x 500 mg) PO DAILY #30 11/18/23 11/15/24 Rx tablet tabs calcium carbonate (Oyster Shell 500 mg PO BREAKFAST #30 tabs 11/18/23 11/15/24 Rx Calcium 500) blood sugar diagnostic (OneTouch #100 ea 12/03/23 Unknown Rx Ultra Test strips) OneTouch Delica Plus Lancet 33 #100 ea 12/04/23 Unknown Rx gauge (lancets) buspirone 5 mg tablet 5 mg PO TID #90 tabs 12/11/23 11/15/24 Rx fiber 1 cap PO DAILY 12/25/23 11/15/24 History anastrozole 1 mg tablet (Arimidex) 1 mg PO DAILY #90 tabs 02/24/24 11/15/24 Rx insulin lispro 100 unit/mL See Protocol subcut DAILY PRN 03/15/24 03/13/24 History subcutaneous pen elevated BS pen needle, diabetic 31 gauge x #300 ea 05/19/24 Unknown Rx 12/09" (1st Tier Unifine Pentips) blood-glucose sensor (Dexcom G6 #9 ea 05/30/24 Unknown Rx Sensor device) blood-glucose transmitter (Dexcom #1 ea 05/30/24 Unknown Rx G6 Transmitter device) aripiprazole 2 mg tablet 2 mg PO QDAY 06/21/24 Unknown History aspirin 81 mg tablet,delayed 81 mg PO QDAY 06/21/24 11/15/24 History release (Adult Low Dose Aspirin) blood-glucose sensor (Dexcom G6 #9 ea 06/21/24 Unknown Rx Sensor device) cholecalciferol (vitamin D3) 125 125 mcg PO QDAY 06/21/24 11/15/24 History mcg (5,000 unit) capsule escitalopram oxalate 10 mg tablet See Rx Instructions PO DAILY 06/21/24 11/15/24 History sennosides 8.6 mg tablet 8.6 mg PO QDAY 06/21/24 11/15/24 History insulin regular hum U-500 conc 500 See Rx Instructions subcut QHS 11/04/24 11/15/24 History unit/mL(3 mL) subcut pen (Humulin R U-500 (Conc) Insulin Kwikpen) levothyroxine 300 mcg tablet 300 mcg PO MOTUWETHFRSA #90 tabs 12/05/24 Unknown Rx insulin lispro 100 unit/mL 20 unit (0.2 mL) subcut TID PRN 12/09/24 Unknown Rx subcutaneous pen BLOOD SUGARS #60 mL tirzepatide 12.5 mg/0.5 mL 12.5 mg (0.5 mL) subcut QWEEK #6 mL 12/27/24 Unknown Rx subcutaneous pen injector (Mounjaro) losartan 50 mg tablet (Cozaar) 50 mg PO DAILY #90 tabs 02/08/25 Unknown Rx Allergy/AdvReac Type Severity Reaction Status Date / Time No Known Allergies Allergy Verified 02/07/25 14:00 Family History Mother Ovarian cancer Hypertension Arthritis Uterine cancer Fibrocystic disease of breast Hypothyroid Father , Age 86-CHF Hypertension Arthritis Diverticulitis of colon Depression CAD (coronary artery disease) Sister Hypertension Depression CVA (cerebral vascular accident) Fibrocystic disease of breast Diabetes Bleeding disorder Portal hypertension Surgical History History of lithotripsy History of right mastectomy Status post right mastectomy History of cardiac catheterization Hx of cystoscopy Hx of total thyroidectomy History of tonsillectomy History of carpal tunnel release History of cardiac radiofrequency ablation History of total abdominal hysterectomy and bilateral salpingo-oophorectomy History of below-knee amputation S/P cystoscopy with ureteral stent placement History of right below knee amputation History of hand surgery H/O cardiac radiofrequency ablation (02/15/13) History of right and left heart catheterization (07/03/17) H/O colonoscopy H/O abdominal hysterectomy H/O carpal tunnel repair Previous section History of tonsillectomy Hx of cholecystectomy Surgical menopause Social History Smoking Status: Never smoker second hand exposure: No alcohol intake: never substance use type: does not use caffeine: No Physical Exam Narrative ECOG 2, seen in a wheelchair Const alert, oriented x3, no apparent distress, no limitations, healthy appearing and well nourished Constitutional Narrative: The patient is morbidly obese. Her BMI is 56.5. General Appearance: cooperative, comfortable, well kempt and well developed Orientation / Consciousness: awake, oriented to person, oriented to place and oriented to time Exam Limitations: no limitations Nutritional Appearance: overweight and morbidly obese HEENT normocephalic and head/scalp atraumatic Head and Scalp: normal to inspection, normocephalic and atraumatic Face and Sinus: normal facial exam Nose: external nose normal External Ear: external ears normal Eyes EOMs intact bilaterally General Eye: normal appearance of both eyes Neck full ROM Resp normal respiratory effort, normal air movement, no retractions and no use of accessory muscles Effort and Inspection: able to speak in complete sentences Cardio Jugular Venous Distention: Negative for JVD Extremity Extremity Narrative: Right lower extremity below-knee amputation is noted. Skin Wound Narrative: The ulceration on the patient's left ischium/buttock is now completely healed and epithelialized. There is some ecchymotic discoloration, but the ulceration appears completely healed. There is no sign of infection or cellulitis. Neuro oriented x3, CN's II-XII intact bilaterally, moves all extremities, no focal motor deficits and no sensory deficits noted Sensorium / Orientation: awake, alert, oriented to person, oriented to place and oriented to time Speech: speech normal Gait (Neuro): unable to assess gait Psych mental status grossly normal Debridement Note Debridement Note No debridement was completed: No debridement was completed today (The patient's ulceration is completely healed and epithelialized.) Charges/Coding Visit Charges Office Visits / Consults: [id number] OV L3 Est 20min Assessment/Plan Assessment/Plan (1) Pressure ulcer of ischium, stage 3: CODE(S): L89.303 - Pressure ulcer of unspecified buttock, stage 3 QUALIFIERS: Laterality: left Qualified Code(s): L89.323 - Pressure ulcer of left buttock, stage 3 (2) Diabetes mellitus, type 2: CODE(S): E11.9 - Type 2 diabetes mellitus without complications QUALIFIERS: Diabetes mellitus assisted insulin use: with assisted use Diabetes mellitus complication status: with hyperglycemia Qualified Code(s): E11.65 - Type 2 diabetes mellitus with hyperglycemia; Z79.4 - prison (current) use of insulin (3) Morbid obesity with BMI of 50.0-59.9, adult: CODE(S): E66.01 - Morbid (severe) obesity due to excess calories; Z68.43 - Body mass index [BMI] 50.0-59.9, adult (4) Benign essential HTN: CODE(S): I10 - Essential (primary) hypertension (5) Hyperlipidemia: CODE(S): E78.5 - Hyperlipidemia, unspecified QUALIFIERS: Hyperlipidemia type: mixed hyperlipidemia Qualified Code(s): E78.2 - Mixed hyperlipidemia (6) Pulmonary hypertension: CODE(S): I27.20 - Pulmonary hypertension, unspecified (7) Chronic renal failure, stage 3 (moderate): CODE(S): N18.30 - Chronic kidney disease, stage 3 unspecified QUALIFIERS: Chronic kidney disease stage 3 subtype: unspecified whether 3a or 3b Qualified Code(s): N18.30 - Chronic kidney disease, stage 3 unspecified (8) Obesity: CODE(S): E66.9 - Obesity, unspecified QUALIFIERS: Obesity type: due to excess calories Obesity classification: adult class 3 (BMI >= 40) Serious obesity comorbidity presence: with serious comorbidity Body mass index: unspecified BMI Qualified Code(s): E66.01 - Morbid (severe) obesity due to excess calories (9) Melanoma in situ: CODE(S): D03.9 - Melanoma in situ, unspecified (10) Below knee amputation: CODE(S): S88.119A - 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, unspecified lower leg, initial encounter QUALIFIERS: Encounter type: subsequent encounter Laterality: right Qualified Code(s): S88.111D - 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, right lower leg, subsequent encounter (11) Hypothyroid: CODE(S): E03.9 - Hypothyroidism, unspecified QUALIFIERS: Hypothyroidism type: acquired Qualified Code(s): E03.9 - Hypothyroidism, unspecified (12) Hyperlipidemia: CODE(S): E78.5 - Hyperlipidemia, unspecified QUALIFIERS: Hyperlipidemia type: mixed hyperlipidemia Qualified Code(s): E78.2 - Mixed hyperlipidemia (13) Status post right mastectomy: CODE(S): Z90.11 - Acquired absence of right breast and nipple (14) Hx of cholecystectomy: CODE(S): Z98.890 - Other specified postprocedural states; Z90.49 - Acquired absence of other specified parts of digestive tract (15) History of tonsillectomy: CODE(S): Z90.89 - Acquired absence of other organs (16) History of carpal tunnel release: CODE(S): Z98.890 - Other specified postprocedural states (17) History of cardiac radiofrequency ablation: CODE(S): Z98.890 - Other specified postprocedural states (18) History of total abdominal hysterectomy and bilateral salpingo-oophorectomy: CODE(S): Z90.710 - Acquired absence of both cervix and uterus; Z90.722 - Acquired absence of ovaries, bilateral; Z90.79 - Acquired absence of other genital organ(s) (19) History of below-knee amputation: CODE(S): Z89.519 - Acquired absence of unspecified leg below knee QUALIFIERS: Laterality: right Qualified Code(s): Z89.511 - Acquired absence of right leg below knee (20) Diabetic neuropathy: CODE(S): E11.40 - Type 2 diabetes mellitus with diabetic neuropathy, unspecified QUALIFIERS: Diabetes mellitus type: type 2 Diabetes mellitus complication detail: diabetic polyneuropathy Qualified Code(s): E11.42 - Type 2 diabetes mellitus with diabetic polyneuropathy (21) BRITT (obstructive sleep apnea): CODE(S): G47.33 - Obstructive sleep apnea (adult) (pediatric) (22) History of endometrial cancer: CODE(S): Z85.42 - Personal history of malignant neoplasm of other parts of uterus (23) Rheumatoid arthritis: CODE(S): M06.9 - Rheumatoid arthritis, unspecified (24) Diverticulosis: CODE(S): K57.90 - Diverticulosis of intestine, part unspecified, without perforation or abscess without bleeding (25) GERD (gastroesophageal reflux disease): CODE(S): K21.9 - Gastro-esophageal reflux disease without esophagitis (26) History of kidney stones: CODE(S): Z87.442 - Personal history of urinary calculi (27) Hx of supraventricular tachycardia: CODE(S): Z86.79 - Personal history of other diseases of the circulatory system PLAN: Plan This is a 64-year-old obese, diabetic female who presented with an abscess on her left buttock, and ultimately as a stage III pressure ulceration. Conservative measures have been implemented, and the patient presents today noted that the ulceration appears lightly healed and epithelialized. Therefore, the patient is to be discharged. She has been encouraged to pad and protect the area. Continued offloading measures have been encouraged. The patient has been advised to optimize her nutritional intake, as well as her glycemic control. She will follow-up henceforth on an as-needed basis. Total time: 22 minutes
== END 2025-02-28 15:46 | disposition home or self-care (01) ==
LOC: WC 08:37
PROVIDERS: PCP Nurse Practitioner Family; Referring Provider Nurse Practitioner Family; Visit Provider Surgery
DX: L89.223 Pressure ulcer of left hip, stage 3 (principal); M06.9 Rheumatoid arthritis, unspecified; Z89.511 Acquired absence of right leg below knee; I27.20 Pulmonary hypertension, unspecified; E66.01 Morbid (severe) obesity due to excess calories; D03.9 Melanoma in situ, unspecified; Z68.43 Body mass index [BMI] 50.0-59.9, adult; E11.65 Type 2 diabetes mellitus with hyperglycemia; E11.42 Type 2 diabetes mellitus with diabetic polyneuropathy; Z79.4 Long term (current) use of insulin; E11.22 Type 2 diabetes mellitus with diabetic chronic kidney disease; N18.30 Chronic kidney disease, stage 3 unspecified; K57.90 Diverticulosis of intestine, part unspecified, without perforation or abscess without bleeding; Z90.11 Acquired absence of right breast and nipple; Z79.811 Long term (current) use of aromatase inhibitors; Z90.710 Acquired absence of both cervix and uterus; Z79.899 Other long term (current) drug therapy; K21.9 Gastro-esophageal reflux disease without esophagitis; G47.33 Obstructive sleep apnea (adult) (pediatric); Z83.3 Family history of diabetes mellitus; M10.9 Gout, unspecified; D64.9 Anemia, unspecified; Z90.722 Acquired absence of ovaries, bilateral; I12.9 Hypertensive chronic kidney disease with stage 1 through stage 4 chronic kidney disease, or unspecified chronic kidney disease; E78.2 Mixed hyperlipidemia; Z79.82 Long term (current) use of aspirin; Z99.3 Dependence on wheelchair; S88.111D 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, right lower leg, subsequent encounter; Z85.42 Personal history of malignant neoplasm of other parts of uterus; Z87.442 Personal history of urinary calculi; Z86.79 Personal history of other diseases of the circulatory system
CPT/HCPCS: 99213; G0463